=== PATIENT | male | born 1985 | race Caucasian/White ===

== ENCOUNTER 2020-02-02 19:03 | Emergency (ER) | payer BC, SELFPAY ==
[~2020-02-02] VITALS: Ht 180.3 cm; Wt 98.9 kg
[~2020-02-02 19:03] MED LIST: ALEV220C2 PO; HYDR-3715 PO; NAPR-837 PO; VALI5TAB PO
[2020-02-02] MEDS ORDERED: ACET-861 PO (19:08)
[2020-02-02] MEDS ORDERED: KETOROLAC TROMETHAMINE 10 MG TAB PO ONE (20:45)
--- NOTE | 2020-02-02 21:14 | REPVR ---
PROCEDURE INFORMATION: Exam: CT Thoracic Spine Without Contrast Exam date and time: 02/02/2020 8:43 PM Age: 34 years old Clinical indication: Pain in thoracic spine; Additional info: Severe tenderness, down left leg TECHNIQUE: Imaging protocol: Computed tomography images of the thoracic spine without contrast. Radiation optimization: All CT scans at this facility use at least one of these dose optimization techniques: automated exposure control; mA and/or kV adjustment per patient size (includes targeted exams where dose is matched to clinical indication); or iterative reconstruction. COMPARISON: No relevant prior studies available. FINDINGS: Vertebrae: Normal vertebral body alignment. No compression fracture or bone lesions. Discs/Spinal canal/Neural foramina: No spinal stenosis. Mild endplate degenerative changes with small Schmorl's nodes at multiple levels. Soft tissues: Unremarkable. IMPRESSION: No fracture or malalignment. Electronically signed by: Pepe Nguyen On 02/02/2020 21:14:46 PM
--- NOTE | 2020-02-02 21:17 | REPVR ---
PROCEDURE INFORMATION: Exam: CT Lumbar Spine Without Contrast Exam date and time: 02/02/2020 8:43 PM Age: 34 years old Clinical indication: Pain; Sciatica; Left; Additional info: Severe tenderness, down left leg TECHNIQUE: Imaging protocol: Computed tomography images of the lumbar spine without contrast. Radiation optimization: All CT scans at this facility use at least one of these dose optimization techniques: automated exposure control; mA and/or kV adjustment per patient size (includes targeted exams where dose is matched to clinical indication); or iterative reconstruction. COMPARISON: CR Spine. Lumbosacral, complete 06/05/2017 7:05 PM FINDINGS: Vertebrae: Normal vertebral body alignment. Mild endplate degenerative changes with small Schmorl's nodes at multiple levels. No acute fracture or bone lesions Discs/Spinal canal/Neural foramina: Broad-based posterior disc bulge causing spinal stenosis and left greater than right lateral recess stenosis. Bilateral foraminal stenosis at L5-S1. Small posterior disc bulge with mild central stenosis at L4-L5. Soft tissues: Unremarkable. IMPRESSION: 1. Spinal stenosis, bilateral foraminal stenosis, and left greater than right lateral recess stenosis at L5-S1. Consider MRI follow-up. 2. Mild spinal stenosis at L4-L5. 3. No fracture or malalignment. Electronically signed by: Pepe Nguyen On 02/02/2020 21:18:18 PM
[2020-02-02] MEDS ORDERED: PRED20TA PO (21:31)
[2020-02-02 21:32] VITALS: BP 121/94
[2020-02-02] MEDS ORDERED: predniSONE 20 MG TAB PO ONE (21:45)
--- NOTE | 2020-02-04 12:12 | ED PDOC ---
Post-Departure Follow-Up dr gandara faxed formal report of ct ls spine for fu Arjun Peñaloza MD Feb 04, 2020 12:12
== END 2020-02-02 21:44 | disposition home or self-care (01) ==
LOC: M ED 19:03
DX: M51.26 Other intervertebral disc displacement, lumbar region (principal); M48.061 Spinal stenosis, lumbar region without neurogenic claudication; M48.07 Spinal stenosis, lumbosacral region; M51.46 Schmorl's nodes, lumbar region; Z88.2 Allergy status to sulfonamides

== ENCOUNTER → 2020-08-27 | Outpatient (CLI) | payer OTHER ==
[~2020-08-27] MED LIST changes: +ACET-861 PO; +PRED20TA PO
--- NOTE | 2020-08-28 08:53 | REP ---
INDICATION: LOW BACK PAIN. Repeat dictation. Preliminary report is provided at the time of the exam by joaquim PARR. COMPARISON: Comparison CT study of the lumbar spine February 02, 2020. Comparison lumbar spine radiographs June 05, 2017.. TECHNIQUE: Sagittal and axial T1 and T2-weighted scans are acquired in the usual fashion with and without fat saturation. Sequences include spin echo, turbo spin-echo, and STIR imaging sequences. FINDINGS: There is straightening of the normal lumbar lordosis. Lumbar vertebral body heights are preserved. Cortical and medullary bone signal intensity are normal. The tip of the conus medullaris is normal in position and appearance at L1-L2. There are Schmorl's nodes on either side of the L1-2 and L2-3 disc. At L5-S1, there is degenerative disc narrowing and decreased signal intensity. There is a fairly large left posterior focal disc protrusion with thecal sac compression and left S1 nerve root displacement and compression. There is minimal facet hypertrophy. Early posterior spurring is seen and there is 2-3 mm of retrolisthesis at L5-S1. There is no evidence of spondylolysis. No bony neural foraminal narrowing. At L4-5, there is mild diffuse disc bulging. No spinal stenosis or foraminal narrowing is seen. At L3-4, L2-3, and L1-2, no disc protrusion is seen. No spinal stenosis is seen. IMPRESSION: Large left posterior focal disc protrusion L5-S1 with thecal sac compression and S1 root compression and displacement. <Electronically signed by Uday Cuenca > 08/28/20 [id number]
== END ==
LOC: M PLAIMG 15:17
PROVIDERS: ATTEND Physician Assistant
DX: M54.5 Low back pain (principal)

== ENCOUNTER → 2020-11-06 | Outpatient (REF) | payer BC ==
[2020-11-06 21:56] LABS: APPEARANCE, URINE HAZY (CLEAR); BACTERIA, URINE AUTO NEGATIVE (NEGATIVE); BILIRUBIN, URINE AUTO NEGATIVE (NEGATIVE); BLOOD, URINE BLOOD NEGATIVE (NEGATIVE); COLOR, URINE YELLOW (YELLOW); GLUCOSE, URINE (UA) AUTO NEGATIVE (NEGATIVE); KETONE, URINE AUTO NEGATIVE (NEGATIVE); LEUKOCYTE ESTERASE, URINE AUTO NEGATIVE (NEGATIVE); MUCUS, URINE SMALL (NEGATIVE); NITRITE, URINE AUTO NEGATIVE (NEGATIVE); PROTEIN, URINE AUTO 1+ mg/dL (NEGATIVE); RBC, URINE AUTO 1 /HPF (0-3); SQUAMOUS EPITHELIAL CELL UR AU 0 /HPF (0-6); UROBILINOGEN, URINE AUTO 0.2 mg/dL (0.0-2.0); WBC, URINE AUTO 1 /HPF (0-3)
== END ==
LOC: M LAB REF 21:42
PROVIDERS: ATTEND Physician Assistant Medical
DX: R10.9 Unspecified abdominal pain (principal)

== ENCOUNTER → 2020-11-06 | Outpatient (CLI) | payer BC ==
--- NOTE | 2020-11-06 17:52 | REP ---
INDICATION: L FLANK PAIN/ R/O STONE. COMPARISON: 05/02/2010. TECHNIQUE: AP view abdomen and pelvis. FINDINGS: Bowel gas pattern is normal. No dilated small bowel loops are seen. Mild air and fecal material is seen throughout the colon. No abnormal calcifications are seen in the abdomen or pelvis. The visualized osseous structures are unremarkable. IMPRESSION: Negative KUB. <Electronically signed by Aris Johnson > 11/06/20 1961
== END ==
LOC: M RAD 17:23
PROVIDERS: ATTEND Physician Assistant Medical
DX: R10.32 Left lower quadrant pain (principal)

== ENCOUNTER 2020-11-14 12:27 | Emergency (ER) | payer BC ==
[~2020-11-14] VITALS: Ht 182.9 cm; Wt 185.0 kg
[2020-11-14 13:10] LABS: BASO % 0.6 % (0.0-1.0); EOS # 0.4 10^3/uL (0.0-0.5); EOS % 5.1 % (0.0-3.0); HEMATOCRIT 42.8 % (42.0-52.0); HEMOGLOBIN 14.2 g/dl (13.5-17.5); LYMPH # 1.5 10^3/uL (1.5-5.0); LYMPH % 21.2 % (24.0-44.0); MEAN CORPUSCULAR HEMOGLOBIN 29.9 pg (27.0-33.0); MEAN CORPUSCULAR HGB CONC 33.2 g/dl (32.0-36.5); MEAN CORPUSCULAR VOLUME 90.1 fl (80.0-96.0); MONO # 0.4 10^3/uL (0.0-0.8); MONO % 5.2 % (2.0-8.0); NEUTROPHILS # 4.8 10^3/uL (1.5-8.5); NEUTROPHILS % 67.6 % (36.0-66.0); PLATELET COUNT, AUTOMATED 246 10^3/uL (150-450); RED BLOOD COUNT 4.75 10^6/uL (4.30-6.10); WHITE BLOOD COUNT 7.1 10^3/uL (4.0-10.0)
[2020-11-14] MEDS ORDERED: ISOVUE-370 76% 100ML VIAL As Ordered ONE (13:33)
[2020-11-14 14:04] LABS: BILIRUBIN,DIRECT 0.3 MG/DL (0.0-0.2); BILIRUBIN,TOTAL 1.3 MG/DL (0.2-1.0); TOTAL PROTEIN 6.9 GM/DL (6.4-8.2)
[2020-11-14 14:43] VITALS: BP 137/88
[2020-12-08] MEDS ORDERED: TIZA10TA PO (04:36)
[2020-12-08] MEDS ORDERED: PROC10TA5 PO (04:36)
== END 2020-11-14 14:44 | disposition home or self-care (01) ==
LOC: M ED 12:27
DX: K86.9 Disease of pancreas, unspecified (principal); K80.20 Calculus of gallbladder without cholecystitis without obstruction; F41.9 Anxiety disorder, unspecified; Z88.2 Allergy status to sulfonamides
CPT/HCPCS: 36415; 74177; 80047; 80076; 83690; 85025; 99284; Q9967

== ENCOUNTER 2020-12-07 20:59 | Inpatient (IN) | payer BC, MEDICAID ==
[~2020-12-07] VITALS: Ht 180.3 cm; Wt 79.2 kg
[2020-12-07 23:24] LABS: BASO % 0.3 % (0.0-1.0); HEMATOCRIT 51.8 % (42.0-52.0); HEMOGLOBIN 17.4 g/dl (13.5-17.5); LYMPH # 0.6 10^3/uL (1.5-5.0); MEAN CORPUSCULAR HEMOGLOBIN 29.2 pg (27.0-33.0); MEAN CORPUSCULAR HGB CONC 33.6 g/dl (32.0-36.5); MEAN CORPUSCULAR VOLUME 87.1 fl (80.0-96.0); MONO # 0.1 10^3/uL (0.0-0.8); MONO % 3.8 % (2.0-8.0); NEUTROPHILS # 2.4 10^3/uL (1.5-8.5); NEUTROPHILS % 75.3 % (36.0-66.0); PLATELET COUNT, AUTOMATED 308 10^3/uL (150-450); RED BLOOD COUNT 5.95 10^6/uL (4.30-6.10); WHITE BLOOD COUNT 3.2 10^3/uL (4.0-10.0)
[2020-12-07 23:36] LABS: ALBUMIN 3.9 GM/DL (3.2-5.2); ALT/SGPT 120 U/L (12-78); BILIRUBIN,DIRECT 0.4 MG/DL (0.0-0.2); BILIRUBIN,TOTAL 2.8 MG/DL (0.2-1.0); BLOOD UREA NITROGEN 18 MG/DL (7-18); CALCIUM LEVEL 9.2 MG/DL (8.5-10.1); CARBON DIOXIDE LEVEL 24 MEQ/L (21-32); CHLORIDE LEVEL 102 MEQ/L (98-107); CREATININE FOR GFR 0.84 MG/DL (0.70-1.30); GLOMERULAR FILTRATION RATE > 60.0 (>60); GLUCOSE, FASTING 118 MG/DL (70-100); LIPASE 231 U/L (73-393); POTASSIUM SERUM 5.3 MEQ/L (3.5-5.1); SODIUM LEVEL 134 MEQ/L (136-145); TOTAL PROTEIN 7.5 GM/DL (6.4-8.2)
[2020-12-07] MEDS ORDERED: NS 1,000 ML IV ONE ×2 (23:40)
[2020-12-07] MEDS ORDERED: MORPHINE 4 MG/ML 1ML VIAL/SYRINGE (J2270) IV ONE (23:40)
[2020-12-07] MEDS ORDERED: ONDANSETRON 4MG/2ML VIAL IV ONE (23:40)
[2020-12-07] MEDS ORDERED: ISOVUE-370 76% 100ML VIAL As Ordered ONE (23:48)
--- NOTE | 2020-12-08 01:09 | REPVR ---
PROCEDURE INFORMATION: Exam: CT Abdomen And Pelvis With Contrast Exam date and time: 12/07/2020 11:40 PM Age: 35 years old Clinical indication: Abdominal pain; Generalized; Patient HX: Stage iv pancreatic CA; Additional info: Stage iv pancreatic cancer with ? biliary obstruction, sbo TECHNIQUE: Imaging protocol: Computed tomography of the abdomen and pelvis with contrast. Radiation optimization: All CT scans at this facility use at least one of these dose optimization techniques: automated exposure control; mA and/or kV adjustment per patient size (includes targeted exams where dose is matched to clinical indication); or iterative reconstruction. Contrast material: ISO; Contrast volume: 100 ml; Contrast route: INTRAVENOUS (IV); COMPARISON: CT ABD/PEL W/IV CONTRAST ONLY 11/14/2020 1:30 PM FINDINGS: Lungs: No suspicious mass or airspace process in the visualized lung bases. Liver: Liver appears normal with no focal abnormality. Gallbladder and bile ducts: Gallbladder is distended and contains intraluminal calculi. No bile duct dilatation or obvious wall thickening within the limitations of CT. Pancreas: Pancreas demonstrates an infiltrative appearing low-density pancreatic tail mass measuring 4.7 x 3.6 cm, similar to the prior recent CT. No bile duct dilatation or fluid collection. Spleen: Spleen appears homogeneous without focal mass. Adrenal glands: Adrenal glands are normal in appearance. Kidneys and ureters: Kidneys appear normal, with no stone, solid mass or hydronephrosis. Stomach and bowel: Tethering of bowel loops in the right lower quadrant, with probable mesenteric infiltration. There is probably at least partial obstruction of the small bowel loops which are dilated up to 4cm in the right lower quadrant. No evidence of acute diverticulitis. Appendix: Appendix is not seen. No RLQ inflammation to suggest appendicitis. Vasculature: No abdominal aortic aneurysm. Lymph nodes: Peripancreatic lymphadenopathy and left upper quadrant mesenteric implants are present and may be progressive over the short interim. Multiple omental soft tissue masses are present measuring up to 3.7 x 1.9 cm, similar to the recent prior CT. Probable malignant ascites. Urinary bladder: Urinary bladder appears normal. Reproductive: No overt enlargement of the prostate gland. Bones/joints: Bony structures show no acute fracture or destructive process. Soft tissues: Unremarkable. IMPRESSION: 1. Least partial small bowel obstruction in the right lower quadrant with bowel measuring up to 4 cm, apparently with tethering of bowel loops secondary to metastatic mesenteric or omental masses. 2. 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 3. Gallbladder distension and intraluminal gallstones without biliary obstruction Electronically signed by: Nima Galdamez On 12/08/2020 01:08:24 AM
[2020-12-08] MEDS ORDERED: MORPHINE 2 MG/ML 1ML VIAL (J2270) IV PRN ×2 (02:20→06:45)
[2020-12-08 02:26] LABS: BASO % 0.6 % (0.0-1.0); EOS % 1.2 % (0.0-3.0); HEMATOCRIT 43.9 % (42.0-52.0); LYMPH # 0.4 10^3/uL (1.5-5.0); LYMPH % 23.1 % (24.0-44.0); MEAN CORPUSCULAR HEMOGLOBIN 29.3 pg (27.0-33.0); MEAN CORPUSCULAR HGB CONC 32.8 g/dl (32.0-36.5); MEAN CORPUSCULAR VOLUME 89.4 fl (80.0-96.0); MONO # 0.1 10^3/uL (0.0-0.8); MONO % 5.3 % (2.0-8.0); NEUTROPHILS # 1.2 10^3/uL (1.5-8.5); NEUTROPHILS % 69.2 % (36.0-66.0); PLATELET COUNT, AUTOMATED 228 10^3/uL (150-450); RED BLOOD COUNT 4.91 10^6/uL (4.30-6.10); WHITE BLOOD COUNT 1.7 10^3/uL (4.0-10.0)
[2020-12-08 02:27] LABS: HEMOGLOBIN 14.4 g/dl (13.5-17.5)
--- NOTE | 2020-12-08 02:34 | HPEPDOC ---
[facility] Medical History & Physical Date of Admission Dec 08, 2020 Date of Service: Dec 08, 2020 Other Provider Ailyn Hodge [facility] Attending Physician: CARLYLE GREENE MD History and Physical TIME OF SERVICE: 344AM CHIEF COMPLAINT: abdominal pain HISTORY OF PRESENT ILLNESS: , a 35 yr old M, was diagnosed with stage 4 pancreatic cancer about 2 weeks ago. He was recently admitted at [facility] where he was told that he is not a candidate for surgery but he received chemo. He was discharged home on Monday and in the interim developed 10/10 in severity abdominal pain that didnt improve w his home dose of morphine. He also had bilious vomiting & burning with urination. He had a small BM yesterday. After receiving IV morphine in the ER his pain improved to 5/10 in severity. REVIEW OF SYSTEMS: 10-point review of systems negative except as listed in HPI PAST MEDICAL/ SURGICAL HISTORY: recently diagnosed stage 4 pancreatic cancer, appendectomy to manage ruptured appendix FAMILY HISTORY: n/a SOCIAL HISTORY: he doesnt smoke ALLERGIES: Please see below. HOME MEDICATIONS: Please see below. PHYSICAL EXAMINATION: Vital Signs Date Time Temp Pulse Resp B/P (MAP) Pulse Ox O2 Delivery O2 Flow Rate FiO2 12/07/20 21:13 97.3 103 20 137/97 (110) 97 Room Air GENERAL APPEARANCE: well-nourished and developed/ NAD HEENT: EOMI / MMM&P CARDIOVASCULAR: RRR/NMRG LUNGS: CTAB on RA ABDOMEN: contour flat/ no vail sign or [place] sign / he is guarding when I approach his abdomen MUSCULOSKELETAL: NCAT / LUCIANO x 4 extremities INTEGUMENT: he is not flushed diaphoretic or jaundice NEUROLOGICAL: CN 2-12 grossly intact / speech not dysarthric PSYCHIATRIC: A&O x 3 / able to understand and follow all commands LABORATORY DATA: IMAGING: CT abd/pelvis IMPRESSION: 1. Least partial small bowel obstruction in the right lower quadrant with bowel measuring up to 4 cm, apparently with tethering of bowel loops secondary to metastatic mesenteric or omental masses. 2. 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 3. Gallbladder distension and intraluminal gallstones without biliary obstruction. MICROBIOLOGY: Respiratory panel negative ASSESSMENT: is a 35 yr old who was recently diagnosed w stage 4 pancreatic cancer; he presented w abdominal pain and will be admitted for management of partial SBO and SIRS vs Sepsis cause TBD. PLAN: 1 Partial SBO 2/2 omental masses He declined NG tube placement Plan: admit to medical floor / NPO w IVF / Zofran for n/v / morphine PROCEDURES NURSE / will ask the day time team to consider consult Gen Surg to see of the patient is a candidate for a palliative enteral stent 2 Stage 4 pancreatic cancer with omental masses, and malignant ascites He reported having difficulties tolerating chemo Plan: will ask the day time team to consult Hem/Onc / request records from [facility] 3 SIRS vs Sepsis Possibly reactive due to malignancy but since he recently received chemo and c/o dysuria we will need to r/o infection Plan: pending UA, blood cx, MRSA and lactic acid we will start empiric Zosyn / IVF 4 Neutropenia ANC is 2400 Plan: continue to monitor ANC 5 Counseling and discussion regarding end of life care planning and decisions We spent about 10 min discussing the option to transition to [employer] along with benefits and risks. I also offered him the option of talking with our local [facility] tomorrow. Plan: he will take some time to think about how he would like to proceed DVT px w Heparin drip Disposition: home after more than 2 midnights stay Home Medications Scheduled PRN Gabapentin (Neurontin) 100 Mg Capsule, 100 MG PO TID PRN for NEUROPATHIC PAIN Morphine Sulfate (Morphine Sulfate) 15 Mg Tablet, 15 MG PO Q6H PRN for SEVERE PAIN (PS 8-10) Ondansetron HCl (Ondansetron HCl) 8 Mg Tablet, 8 MG PO Q8H PRN for NAUSEA OR VOMITING Polyethylene Glycol 3350 (Miralax) 17 Gm Powd.pack, 17 GM PO DAILY PRN for CONSTIPATION Prochlorperazine Maleate (Prochlorperazine Maleate) 10 Mg Tablet, 10 MG PO Q6H PRN for NAUSEA OR VOMITING Sennosides (Senna) 8.6 Mg Tablet, 2 TAB PO DAILY PRN for CONSTIPATION Tizanidine HCl (Tizanidine HCl) 4 Mg Tablet, 4 MG PO Q6H PRN for MUSCLE SPASMS Allergies Coded Allergies: Sulfa (Sulfonamide Antibiotics) (Verified Allergy, Unknown, unknown, 02/02/20) A-FIB/CHADSVASC A-FIB History Current/History of A-Fib/PAF?: No Current PO Anticoag Therapy: No CARLYLE GREENE MD Dec 08, 2020 02:34
[2020-12-08 02:54] LABS: ALT/SGPT 75 U/L (12-78); BILIRUBIN,TOTAL 1.7 MG/DL (0.2-1.0); BLOOD UREA NITROGEN 15 MG/DL (7-18); CALCIUM LEVEL 6.6 MG/DL (8.5-10.1); CARBON DIOXIDE LEVEL 23 MEQ/L (21-32); CHLORIDE LEVEL 114 MEQ/L (98-107); GLOMERULAR FILTRATION RATE > 60.0 (>60); GLUCOSE, FASTING 102 MG/DL (70-100); POTASSIUM SERUM 3.9 MEQ/L (3.5-5.1); SODIUM LEVEL 143 MEQ/L (136-145); TOTAL PROTEIN 4.8 GM/DL (6.4-8.2)
[2020-12-08 02:55] LABS: ALBUMIN 2.4 GM/DL (3.2-5.2)
[2020-12-08 03:21] LABS: RSV AMPLIFICATION NEGATIVE (NEGATIVE)
[2020-12-08] MEDS: NS 1,000 ML IV SCH ×3 (03:38→19:04)
[2020-12-08] MEDS ORDERED: MORP15TA2 PO (04:36)
[2020-12-08] MEDS ORDERED: ONDA-196 PO (04:36)
[2020-12-08] MEDS ORDERED: NEUR100C PO (04:36)
[2020-12-08] MEDS ORDERED: MIRA1POW3 PO (04:36)
[2020-12-08] MEDS ORDERED: TIZA4TAB4 PO (04:36)
[2020-12-08] MEDS ORDERED: SENN8.6T28 PO (04:36)
[2020-12-08] MEDS ORDERED: PROC10TA4 PO (04:36)
[2020-12-08] MEDS ORDERED: MIRALAX *UNIT DOSE* 17GM PACKET PO PRN (04:40)
[2020-12-08] MEDS ORDERED: tiZANidine 4 MG TAB PO PRN (04:40)
[2020-12-08] MEDS ORDERED: NALOXONE INJ 0.4MG/1ML VIAL (J2310 PER 1MG) IV PRN (04:40)
[2020-12-08] MEDS ORDERED: MORPHINE 1MG/ML IN 0.9% NACL 100ML IV BAG IV PRN (04:40)
[2020-12-08] MEDS ORDERED: SENNA 8.6 MG TAB (SENOKOT) PO PRN (04:40)
[2020-12-08] MEDS ORDERED: ONDANSETRON 4MG/2ML VIAL IV PRN ×2 (04:40)
[2020-12-08] MEDS ORDERED: HOME MED LIST COMPLETE! XX SCH (04:40)
[2020-12-08] MEDS ORDERED: EPIDURAL/PCA KEYS XX PRN (04:40)
[2020-12-08] MEDS ORDERED: diphenhydrAMINE 50MG/ML VIAL (J1200) IV PRN (04:40)
[2020-12-08] MEDS ORDERED: NS 1,000 ML IV SCH (04:40)
[2020-12-08 05:59] VITALS: BP 126/85
[2020-12-08] MEDS: HEPARIN SOD (PORCINE) 5000UNITS/ML 1ML VIAL/SYRINGE SC SCH ×3 (06:00→22:00)
[2020-12-08] MEDS: PIPERACILLIN/TAZOBACTAM SOD 3.375 GM in D5W MINI-BAG PLUS 50 ML IV SCH ×3 (08:16→20:46)
[2020-12-08] MEDS ORDERED: GLUCOSE 4GM CHEW TABLET PO PRN (10:10)
[2020-12-08] MEDS ORDERED: DEXTROSE 50% 50 ML SYRINGE IV PRN (10:10)
[2020-12-08] MEDS ORDERED: GLUCAGON INJ 1MG VIAL SC PRN (10:10)
--- NOTE | 2020-12-08 12:48 | REP ---
INDICATION: abd pain pancreatic ca. COMPARISON: CT 12/07/2020. TECHNIQUE: Multiple heavily T2 weighted sequences are obtained in the axial and coronal planes. 3D MIP reconstruction images are performed. FINDINGS: There is no intrahepatic or extrahepatic biliary dilatation. There is no gross biliary stricture and no focal dilatation. Common bile duct has a maximum diameter of approximately 3 mm. Pancreatic duct is normal in caliber. Gallbladder is moderately distended with no wall thickening or edema. Multiple subcentimeter gallstones are seen in the dependent portion of the gallbladder. There is no evidence of choledocholithiasis. The liver, spleen, adrenals, and kidneys are grossly unremarkable. Pancreatic tail mass is again noted. Omental and mesenteric disease is better appreciated on the CT scan. There is trace free fluid in subhepatic and perisplenic regions of the abdomen. IMPRESSION: Multiple subcentimeter gallstones in the moderately distended gallbladder without gallbladder wall thickening or edema. Trace free fluid is seen in the subhepatic region. There is no intrahepatic or extrahepatic biliary dilatation.Pancreatic tail mass noted with no pancreatic duct dilatation. <Electronically signed by Aris Johnson > 12/08/20 [id number]
[2020-12-08 14:00] VITALS: BP 118/81
--- NOTE | 2020-12-08 17:22 | CR.PDOC ---
General Date of Consultation: Dec 08, 2020 Consultation REASON FOR CONSULTATION/CHIEF COMPLAINT: Pancreatic cancer/ leukopenia HISTORY OF PRESENT ILLNESS: , a 35 yr old M, was diagnosed with stage 4 pancreatic cancer with omental masses, and malignant ascites about 2 weeks ago. He was recently admitted at [facility] where he was told that he is not a candidate for surgery but he received chemo. He was discharged home on Monday and in the interim developed 10/10 in severity abdominal pain that didnt improve w his home dose of morphine. He also had bilious vomiting & burning with urination. He had a small BM yesterday. After receiving IV morphine in the ER his pain improved to 5/10 in severity. IMAGING: CT abd/pelvis IMPRESSION: 1. Least partial small bowel obstruction in the right lower quadrant with bowel measuring up to 4 cm, apparently with tethering of bowel loops secondary to metastatic mesenteric or omental masses. 2. 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 3. Gallbladder distension and intraluminal gallstones without biliary obstruction. Oh was diagnosed 2 weeks ago. Symptoms were extreme abdominal pain, bowel troubles, nausea and vomiting. He began to vomit during our visit today. His abdomen is tender to the touch. He has only been given nausea medication as needed. His reports show there is a bowel obstruction, he has not had surgical intervention for this. The mass is on tail of pancreas. Intraperitoneal metastases. Metastatic to liver. I spoke to NIESHA Mccauley she informed me he has been refusing any blood draws for fear of needles. Refusing pain medication and heparin. He has been stating he wants a clear head. He was given first treatment of FOLFOXFIRI 1 week ago, they were planning on every 2 weeks for treatment. He could not tolerate this treatment. I advised him not to give up. There are other treatment options that can be tolerated much better. I I explained to him that FOLFOXIRI gives better results other difficult to tolerate. His next cycle will be due in about a week but he is neutropenic and is getting Neupogen 480 mcg subcu daily. His next cycle needs to modified so that he does not become mildly stressed or may add Neulasta support to keep white blood cell count up.. . I discussed Gemzar and Abraxane combination is an alternate choice although he should try his best to continue with FOLFOXIRI if he wants better result other difficult communication to tolerate He has not had an appetite for over a week. ALLERGIES: Please see below. HOME MEDICATIONS: Please see below. PAST SURGICAL HISTORY: recently diagnosed stage 4 pancreatic cancer, appendectomy to manage ruptured appendix FAMILY HISTORY:Grandmother with breast and cervical cancer, stomach cancer unknown who, grandfather with leukemia LABORATORY DATA: Please see below. ASSESSMENT/PLAN: Patient has metastatic pancreatic cancer spread with omental and peritoneal spread s/p 1 cycle FOLFOXIRI. Following is suggested 1. Neupogen 480 mcg subc daily with daily CBC. CA 199 should be drawn. 2. Ondansetron for nausea 4-8mg IV every 8 hours around the clock 3. He should continue with his follow up at [facility] and discuss what we discussed 4. Pain management consultation, [employer] pump for pain management if patient is agreeable. Vital Signs/I&O Vital Signs Date Time Temp Pulse Resp B/P (MAP) Pulse Ox O2 Delivery O2 Flow Rate FiO2 12/08/20 14:10 100.6 12/08/20 14:00 132 18 118/81 (93) 97 Room Air I&O- Last 24 Hours up to 6 AM 12/08/20 06:00 Intake Total 0 ml Output Total 0 ml Balance 0 ml Laboratory Data Labs 24H Laboratory Tests 2 12/07/20 23:00: Immature Granulocyte % (Auto) 0.6, Neutrophils (%) (Auto) 75.3H, Lymphocytes (%) (Auto) 19.0L, Monocytes (%) (Auto) 3.8, Eosinophils (%) (Auto) 1.0, Basophils (%) (Auto) 0.3, Neutrophils # (Auto) 2.4, Lymphocytes # (Auto) 0.6L, Monocytes # (Auto) 0.1, Eosinophils # (Auto) 0.0, Basophils # (Auto) 0.0, Nucleated Red Blood Cells % (auto) 0.0, Anion Gap 8, Glomerular Filtration Rate > 60.0, Calcium Level 9.2, Total Bilirubin 2.8H, Direct Bilirubin 0.4H, Aspartate Amino Transf (AST/SGOT) 45H, Alanine Aminotransferase (ALT/SGPT) 120H, Alkaline Phosp hatase 84, Total Protein 7.5, Albumin 3.9, Albumin/Globulin Ratio 1.1, Lipase 231 12/08/20 02:00: Immature Granulocyte % (Auto) 0.6, Neutrophils (%) (Auto) 69.2H, Lymphocytes (%) (Auto) 23.1L, Monocytes (%) (Auto) 5.3, Eosinophils (%) (Auto) 1.2, Basophils (%) (Auto) 0.6, Neutrophils # (Auto) 1.2L, Lymphocytes # (Auto) 0.4L, Monocytes # (Auto) 0.1, Eosinophils # (Auto) 0.0, Basophils # (Auto) 0.0, Nucleated Red Blood Cells % (auto) 0.0, Anion Gap 6L, Glomerular Filtration Rate > 60.0, Calcium Level 6.6#L, Total Bilirubin 1.7H, Aspartate Amino Transf (AST/SGOT) 15, Alanine Aminotransferase (ALT/SGPT) 75, Alkaline Phosphatase 57, Total Protein 4.8#L, Albumin 2.4#L, Albumin/Globulin Ratio 1.0, Lactic Acid Level 1.3, Coronavirus (COVID-19)(PCR) NEGATIVE, Influenza Type A (RT-PCR) NEGATIVE, Influenza Type B (RT-PCR) NEGATIVE, Respiratory Syncytial Virus (PCR) NEGATIVE 12/08/20 06:21: Bedside Glucose (Misc Panel) 105 12/08/20 11:45: Bedside Glucose (Misc Panel) 117H 12/08/20 14:46: Urine Color NILESH, Urine Appearance CLEAR, Urine pH 6.0, Urine Specific [place] 1.035, Urine Protein 1+H, Urine Glucose (UA) NEGATIVE, Urine Ketones NEGATIVE, Urine Blood NEGATIVE, Urine Nitrite NEGATIVE, Urine Bilirubin NEGATIVE, Urine Urobilinogen 4.0H, Urine Leukocyte Esterase NEGATIVE, Urine WBC (Auto) 1, Urine RBC (Auto) 1, Urine Hyaline Casts (Auto) 0, Urine Bacteria (Auto) NEGATIVE, Urine Squamous Epithelial Cells 0, Urine Mucus (Auto) SMALL, Urine Sperm (Auto) CBC/BMP Laboratory Tests 12/07/20 23:00 12/08/20 02:00 Allergies Coded Allergies: Sulfa (Sulfonamide Antibiotics) (Verified Allergy, Unknown, unknown, 02/02/20) Home Medications Scheduled PRN Gabapentin (Neurontin) 100 Mg Capsule, 100 MG PO TID PRN for NEUROPATHIC PAIN, (Reported) Morphine Sulfate (Morphine Sulfate) 15 Mg Tablet, 15 MG PO Q6H PRN for SEVERE PAIN (PS 8-10), (Reported) Ondansetron HCl (Ondansetron HCl) 8 Mg Tablet, 8 MG PO Q8H PRN for NAUSEA OR VOMITING, (Reported) Polyethylene Glycol 3350 (Miralax) 17 Gm Powd.pack, 17 GM PO DAILY PRN for CONSTIPATION, (Reported) Prochlorperazine Maleate (Prochlorperazine Maleate) 10 Mg Tablet, 10 MG PO Q6H PRN for NAUSEA OR VOMITING, (Reported) Sennosides (Senna) 8.6 Mg Tablet, 2 TAB PO DAILY PRN for CONSTIPATION, (Repor abby) Tizanidine HCl (Tizanidine HCl) 4 Mg Tablet, 4 MG PO Q6H PRN for MUSCLE SPASMS, (Reported) Sanjay Garcia Dec 08, 2020 17:22 DEREK VEGA MD Dec 08, 2020 17:52
[2020-12-08] MEDS: PANTOPRAZOLE 40MG VIAL (C9113 PER 1) IV SCH (17:52)
[2020-12-08] MEDS: ONDANSETRON 4MG/2ML VIAL IV SCH (17:52)
--- NOTE | 2020-12-08 21:39 | ECGEPIP ---
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
[2020-12-08 22:00] VITALS: BP 119/75
[2020-12-09] MEDS: ONDANSETRON 4MG/2ML VIAL IV SCH ×3 (01:08→17:00)
[2020-12-09] MEDS: PIPERACILLIN/TAZOBACTAM SOD 3.375 GM in D5W MINI-BAG PLUS 50 ML IV SCH ×4 (01:08→20:25)
[2020-12-09] MEDS: NS 1,000 ML IV SCH ×2 (01:09→10:58)
[2020-12-09] MEDS: HEPARIN SOD (PORCINE) 5000UNITS/ML 1ML VIAL/SYRINGE SC SCH ×3 (05:35→20:24)
[2020-12-09 06:00] VITALS: BP 115/77
[2020-12-09] MEDS: PANTOPRAZOLE 40MG VIAL (C9113 PER 1) IV SCH (08:57)
--- NOTE | 2020-12-09 12:12 | IPN ---
PROGRESS NOTE DATE: 12/09/2020 SUBJECTIVE: Patient denies nausea, vomiting, abdominal pain, diarrhea. Patient said he feels quite comfortable this morning, had not taken much morphine yesterday. He is tolerating his liquid diet. Patient has been refusing phlebotomy due to fear of needles. OBJECTIVE: Vital signs: T-max 100.6, pulse 65 sinus, respiratory rate 19, blood pressure 115/77, 98% on room air. General: Awake, alert, oriented to person, place and time, answering questions appropriately. HEENT: Poor dentition, missing teeth, cavities. Dry mucous membranes with chapped lips. Cachetic appearing, bi-temporal wasting. Lungs: Clear to auscultation, no wheezes, rhonchi or rales. Heart: S1 and S2 sinus rhythm. Abdomen: Soft, slightly tender epigastric, right upper quadrant, no guarding or rebound, positive bowel sounds, nondistended. Extremities: No cyanosis, clubbing or pitting edema. LABORATORY DATA: Patient refused blood work today. From 12/08/2020: CBC, CMP noted yesterday with decreasing bilirubin to 1.7. Microbiology reviewed. IMAGING STUDIES: MRCP: No ductal dilatation, multiple subcentimeter gallstones and a moderately distended gallbladder without wall thickening or edema. ASSESSMENT: This is a 35-year-old with metastatic stage 4 pancreatic cancer status post chemotherapy and follows at [facility] in [place] presents with intractable abdominal pain on Monday, improved with I.V. morphine. Patient had no ductal dilatation on CT and MRCP. He does have cholelithiasis. IMPRESSIONS/PLAN: 1. Stage 4 pancreatic cancer with omental metastasis and malignant ascites: Undergoing chemotherapy. 2. Partial small bowel obstruction secondary to omental masses: He is currently passing gas, decline nasogastric tube placement. He is on I.V. fluids and tolerating his liquid diet. 3. Cholelithiasis with biliary colic: No gallbladder wall thickening or edema noted on MRCP. Patient is currently on I.V. antibiotics for acute cholecystitis, but tolerating his diet. General surgery has been consulted to assist in management. Possible laparoscopic cholecystectomy or continue antibiotics with conservative management. [facility]
[2020-12-09 14:00] VITALS: BP 123/88
[2020-12-09] MEDS ORDERED: ONDANSETRON 4MG/2ML VIAL IV ONE (20:30)
[2020-12-09 22:00] VITALS: BP 127/89
[2020-12-10] MEDS: PIPERACILLIN/TAZOBACTAM SOD 3.375 GM in D5W MINI-BAG PLUS 50 ML IV SCH ×4 (02:23→20:39)
[2020-12-10] MEDS: ONDANSETRON 4MG/2ML VIAL IV SCH ×3 (02:23→17:00)
[2020-12-10] MEDS: HEPARIN SOD (PORCINE) 5000UNITS/ML 1ML VIAL/SYRINGE SC SCH ×3 (05:04→21:36)
[2020-12-10 06:00] VITALS: BP 123/85
[2020-12-10 07:42] LABS: ALBUMIN 2.6 GM/DL (3.2-5.2); ALT/SGPT 43 U/L (12-78); BILIRUBIN,TOTAL 0.7 MG/DL (0.2-1.0); BLOOD UREA NITROGEN 7 MG/DL (7-18); CALCIUM LEVEL 8.1 MG/DL (8.5-10.1); CARBON DIOXIDE LEVEL 26 MEQ/L (21-32); CHLORIDE LEVEL 106 MEQ/L (98-107); CREATININE FOR GFR 0.65 MG/DL (0.70-1.30); GLOMERULAR FILTRATION RATE > 60.0 (>60); GLUCOSE, FASTING 82 MG/DL (70-100); POTASSIUM SERUM 3.6 MEQ/L (3.5-5.1); SODIUM LEVEL 136 MEQ/L (136-145); TOTAL PROTEIN 5.8 GM/DL (6.4-8.2)
--- NOTE | 2020-12-10 07:52 | CR.PDOC ---
General Date of Consultation: Dec 10, 2020 Attending Physician: AUGUSTINE DUGAN MD Consultation REASON FOR CONSULTATION/CHIEF COMPLAINT: Mr. Byrne is a 35 year old referred to palliative care for New dx of stage IV pancreatic cancer for support and pain and symptom management from Dr. Dugan. HISTORY OF PRESENT ILLNESS: Benign past medical history. Develped weight loss and abdominal pain, dx 2 weeks ago at [facility]. He received one dose of FOLFOXIRI. Apparendtly did not tolerate this well. He has had medical oncology consult from Dr. Martinez here during this stay. He recommends continuing current chemo and f/u at [facility]. Admitted here one day after discharge from [facility] with severe abdominal pain and intractible N/V. Mood is sad with news of dx but he is accepting of it. Otherwise 10 point ROS was negative. PAST MEDICAL HISTORY: No current problems PAST SURGICAL HISTORY: 1. Appendectomy age 10, s/p rupture FAMILY HISTORY: Grandmother with breast and cervical cancer, stomach cancer unknow whom, grandfather with leukemia SOCIAL HISTORY: Marital status and/or living arrangements: Lives alone. Plans to move to [place], will live in best friend's grandmother's home. Has family and friend support in [place] area. Wishes to transfer cancer care to Dr Martinez [facility]. 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 He states his family is fully informed about his diagnosis. SPIRITUALITY: Nonreligious, believes in [place] ASSESSMENT/PLAN: Advanced Care Planning: currently full code. not discussed today. Has good family support. Plan to complete Health care surrogate and living will in near future. He will f/u with us at [facility]. Symptom Management: Nausea: continue ondansetron scheduled. Rotate to oral when can tolerate. Consider adding prochlorperazine 10 mg PO/NE q 6 hr prn. Has had some breakthrough nausea with zofran only. Recommend trial of Lortab 10/325 for d/c pain mdication, after trial in hospital. Was taking morphine immediate release 30 mg, but had intractible N/V so he is not sure this was working. Goals of Care: Aggressively treat Cancer. He is aware of poor prognosis. Move to [place] to be near friends and family for support. Transfer cancer care to [place]. Establish at [facility] for support and ongoing symptom management. 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 Vital Signs/I&O Vital Signs Date Time Temp Pulse Resp B/P (MAP) Pulse Ox O2 Delivery O2 Flow Rate FiO2 12/10/20 06:53 18 12/10/20 06:00 98.4 75 123/85 (98) 100 Room Air I&O- Last 24 Hours up to 6 AM 12/10/20 06:00 Intake Total 1060 ml Balance 1060 ml Laboratory Data Labs 24H Laboratory Tests 2 12/10/20 06:54: Home Medications Scheduled PRN Gabapentin (Neurontin), 100 MG PO TID PRN for NEUROPATHIC PAIN, (Reported) Morphine Sulfate (Morphine Sulfate), 15 MG PO Q6H PRN for SEVERE PAIN (PS 8-10), (Reported) Ondansetron HCl (Ondansetron HCl), 8 MG PO Q8H PRN for NAUSEA OR VOMITING, (Reported) Polyethylene Glycol 3350 (Miralax), 17 GM PO DAILY PRN for CONSTIPATION, (Reported) Prochlorperazine Maleate (Prochlorperazine Maleate), 10 MG PO Q6H PRN for NAUSEA OR VOMITING, (Reported) Sennosides (Senna), 2 TAB PO DAILY PRN for CONSTIPATION, (Reported) Tizanidine HCl (Tizanidine HCl), 4 MG PO Q6H PRN for MUSCLE SPASMS, (Reported) Allergies Coded Allergies: Sulfa (Sulfonamide Antibiotics) (Verified Allergy, Unknown, unknown, 02/02/20) DREA BERRIOS Dec 10, 2020 07:52
[2020-12-10] MEDS: MORPHINE 30 MG TAB **MSIR PO SCH ×3 (09:42→20:41)
[2020-12-10] MEDS: METOCLOPRAMIDE 10 MG TAB PO SCH ×3 (13:15→20:40)
[2020-12-10 14:00] VITALS: BP 122/85
--- NOTE | 2020-12-10 14:30 | IPN ---
PROGRESS NOTE DATE: 12/10/2020 SUBJECTIVE: Patient said that he is tolerating liquids, but when he tried to have a solid diet yesterday, patient complained of one episode of vomiting. He was afebrile. No chills. Chronic abdominal discomfort rated at 5/10, but better on morphine. Patient had refused blood work previously. Unable to assess patient for neutropenia. OBJECTIVE: VITAL SIGNS: Temperature 98.4, pulse 75, respiratory rate 20, blood pressure 123/85, 100% on room air. GENERAL: Patient is awake, alert, oriented to person, place and time, answering questions appropriately. He appears disheveled. HEENT: Poor dentition, missing teeth, dental caries. Dry mucous membranes. No jugular venous distention (JVD), thyromegaly or cervical lymphadenopathy. LUNGS: Clear to auscultation. No wheezing, rales or rhonchi. Air entry is equal bilaterally. HEART: S1, S2. Sinus rhythm. No murmurs, rubs or gallops. No carotid bruit. ABDOMEN: Soft. Tender in the epigastric, left upper quadrant without rebound or guarding. Slightly distended and tympanitic. EXTREMITIES: No cyanosis, clubbing or pitting edema. LABORATORY DATA/MICROBIOLOGY/IMAGING STUDIES: Have been reviewed. ASSESSMENT: A 35-year-old male with history of stage IV pancreatic cancer, nonsurgical, undergoing chemotherapy and follows at [facility], status post chemotherapy and discharged home last Monday, presented to the emergency room with worsening abdominal pain, found to have partial small bowel obstruction, cholelithiasis, biliary cholic, with increased omental metastatic lesions on CT abdomen and pelvis. Despite elevated bilirubin, patient had no ductal dilatation or obstruction on magnetic resonance cholangiopancreatography (MRCP). Patient had febrile neutropenia and was started on intravenous Zosyn. Absolute neutrophil count (ANC) at that time was 76 and did not require any Neupogen. Patient had diffuse blood work, unable to assess for need for Neupogen. He had episodes of vomiting, but no signs of dehydration and completed intravenous (IV) fluids. ACTIVE ISSUES ARE FOLLOWS: 1. Partial small bowel obstruction secondary to metastatic pancreatic cancer to the omentum. 2. Stage IV metastatic pancreatic cancer with malignant ascites and omental masses. 3. Biliary cholic with cholelithiasis. 4. Febrile neutropenia with sepsis with ANC of 2400 on admission and 1176 o 12/07/2020. Patient refused further blood work. 5. Cancer cachexia. PLAN: General surgery was consulted and recommended supplemental nutrition with Ensure due to rule out possible chronic partial small bowel instruction with increased risk of complete obstruction in the future. Continue with antibiotics for now. Afebrile. No neutropenia. Pain medications with morphine sulfate-immediate release (MS-IR) three times a day. Reglan as an antiemetic. Discharge home in the morning with outpatient followup with his medical oncologist and primary care physician within a week of discharge.
[2020-12-10] MEDS ORDERED: METO10TA2 PO (15:52)
[2020-12-10] MEDS ORDERED: MSIR30TA PO (15:52)
[2020-12-10 20:04] VITALS: BP 132/78
[2020-12-11] MEDS: ONDANSETRON 4MG/2ML VIAL IV SCH ×3 (01:41→17:00)
[2020-12-11] MEDS: PIPERACILLIN/TAZOBACTAM SOD 3.375 GM in D5W MINI-BAG PLUS 50 ML IV SCH ×3 (01:41→14:00)
[2020-12-11 06:00] VITALS: BP 115/77
[2020-12-11] MEDS: HEPARIN SOD (PORCINE) 5000UNITS/ML 1ML VIAL/SYRINGE SC SCH ×2 (06:00→14:00)
[2020-12-11] MEDS: METOCLOPRAMIDE 10 MG TAB PO SCH ×2 (08:27→12:50)
[2020-12-11] MEDS: MORPHINE 30 MG TAB **MSIR PO SCH ×2 (09:35→16:46)
--- NOTE | 2020-12-11 11:10 | DS.PDOC ---
Discharge Summary General Date of Admission Dec 08, 2020 at 02:18 Date of Discharge 12/11/20 Discharge Summary DISCHARGE DIAGNOSES: 1. Partial small bowel obstruction secondary to metastatic pancreatic cancer to the omentum. 2. Stage IV metastatic pancreatic cancer with malignant ascites and omental masses. 3. Biliary cholic with cholelithiasis. 4. Febrile neutropenia with sepsis with ANC of 2400 on admission and 1176 o 12/07/2020. Patient refused further blood work. 5. Cancer cachexia. 6. Chemotherapy induced leukopenia 7. Protein calorie malnutrition w decreased albumin 8. Fear of needles-refused blood work/medical noncompliance DISCHARGE MEDICATIONS: SEE BELOW DISCHARGE INSTRUCTIONS; COMPLETE ABX. MEDONC 1WK FU APPT. PCP 5 DAYS FU APPT. ENSURE TID W MEALS. HOSPITAL COURSE: A 35-year-old male with history of stage IV pancreatic cancer, nonsurgical, undergoing chemotherapy and follows at [facility], status post chemotherapy and discharged home last Monday, presented to the emergency room with worsening abdominal pain, found to have partial small bowel obstruction, cholelithiasis, biliary cholic, with increased omental metastatic lesions on CT abdomen and pelvis. Despite elevated bilirubin, patient had no ductal dilatation or obstruction on magnetic resonance cholangiopancreatography (MRCP). Patient had febrile neutropenia and was started on intravenous Zosyn. Absolute neutrophil count (ANC) at that time was 76 and did not require any Neupogen. Patient had rfused blood work, unable to assess for need for Neupogen. He had episodes of vomiting, but no signs of dehydration and completed intravenous (IV) fluids. General surgery was consulted and recommended supplemental nutrition with Ensure due to rule out possible chronic partial small bowel instruction with increased risk of complete obstruction in the future. Continue with antibiotics for now. Afebrile. No neutropenia. Pain medications with morphine sulfate-immediate release (MS-IR) three times a day. Reglan as an antiemetic. Discharge home in the morning with outpatient followup with his medical oncologist and primary care physician within a week of discharge. DISCHARGE PHYSICAL EXAMINATION: VITAL SIGNS: SEE BELOW GENERAL: Patient is awake, alert, oriented to person, place and time, answering questions appropriately. He appears disheveled. HEENT: Poor dentition, missing teeth, dental caries. Dry mucous membranes. No jugular venous distention (JVD), thyromegaly or cervical lymphadenopathy. LUNGS: Clear to auscultation. No wheezing, rales or rhonchi. Air entry is equal bilaterally. HEART: S1, S2. Sinus rhythm. No murmurs, rubs or gallops. No carotid bruit. ABDOMEN: Soft. slightly Tender in the epigastric, left upper quadrant without rebound or guarding. Slightly distended and tympanitic. EXTREMITIES: No cyanosis, clubbing or pitting edema. LABORATORY DATA/MICROBIOLOGY/IMAGING STUDIES: see chart TIME SPENT ON DISCHARGE: 30 MIN Vital Signs/I&Os Vital Signs Date Time Temp Pulse Resp B/P (MAP) Pulse Ox O2 Delivery O2 Flow Rate FiO2 12/11/20 09:35 18 Room Air 12/11/20 06:00 98.9 64 115/77 (90) 99 I&O- Last 24 Hours up to 6 AM 12/11/20 06:00 Intake Total 520 ml Balance 520 ml Discharge Medications Scheduled Metoclopramide HCl (Metoclopramide HCl) 10 Mg Tablet, 10 MG PO ACHS Morphine Sulfate (Morphine Sulfate) 30 Mg Tablet, 15 MG PO TID Scheduled PRN Gabapentin (Neurontin) 100 Mg Capsule, 100 MG PO TID PRN for NEUROPATHIC PAIN, (Reported) Ondansetron HCl (Ondansetron HCl) 8 Mg Tablet, 8 MG PO Q8H PRN for NAUSEA OR VOMITING, (Reported) Polyethylene Glycol 3350 (Miralax) 17 Gm Powd.pack, 17 GM PO DAILY PRN for CONSTIPATION, (Reported) Sennosides (Senna) 8.6 Mg Tablet, 2 TAB PO DAILY PRN for CONSTIPATION, (Reported) Tizanidine HCl (Tizanidine HCl) 4 Mg Tablet, 4 MG PO Q6H PRN for MUSCLE SPASMS, (Reported) Allergies Coded Allergies: Sulfa (Sulfonamide Antibiotics) (Verified Allergy, Unknown, unknown, 02/02/20) AUGUSTINE DUGAN MD Dec 11, 2020 11:10
--- NOTE | 2020-12-14 10:04 | CR.PDOC ---
General Surgery Consultation Date of Consultation 12/09/20 History and Physical CONSULT REPORT FOR: Claire Sood MD (hospitalist service) REASON FOR CONSULTATION: Abdominal pain HISTORY OF PRESENT ILLNESS: Patient is a 35-year-old male who had recently been diagnosed with metastatic pancreatic malignancy and has started chemotherapy at [facility] admitted for worsening of his chronic abdominal pain. According to him he has been relatively asymptomatic up until September when he started having left-sided abdominal discomfort radiating to the back and to the right side which initially comes in waves but has been fairly constant since. He also reports fullness, anorexia and ongoing weight loss. With the symptoms he was seen at the emergency room with abnormal imaging study, later on followed up with Dr. Sparrow in our clinic. At some point he presented I think [facility] then later transferred to [facility] and the diagnosis of pancreatic malignancy was made and he was started on chemotherapy. He finished his first cycle Monday and developed worsening abdominal pain while he was at home that did improve with his home dose of oral morphine. He also had bilious vomiting. He reports small loose bowel movements. In the emergency room (12/07/2020) he had a CT scan of the abdomen and pelvis demonstrating the above findings related to the pancreatic malignancy but also noted to may have partial small bowel obstruction. He has not required nasogastric tube. He was also noted to have cholelithiasis though without any evidence of gallbladder wall thickening or wall edema. His LFTs are normal. He is pain according to him is mostly over on the left side but he did have some new right-sided abdominal pain radiating to the right upper and right lower quadrant area that comes and goes in waves. I was asked to see the patient with regards to possibility that he has been having biliary colic type symptoms related to his gallbladder. He also has had an abdominal MRI done yesterday. When I saw the patient on the afternoon of 12/09/2020 he was sitting up in bed and appears fairly comfortable. He reports his pain has improved since yesterday. He has been able to tolerate a liquid diet without any exacerbation of his discomfort. He has been having small amounts of loose stools. He denies any ongoing nausea though he does have episodes of nausea still relieved with Zofran. No fevers or chills. He reports he is intermittently passing flatus. He is able to walk the halls independently. No fevers or chills noted on the vital signs here in the hospital. PAST MEDICAL HISTORY: 1. Recently diagnosed with metastatic pancreatic malignancy with noted metastasis to the omentum, peritoneum. PAST SURGICAL HISTORY: INCLUDES: 1. Most of previous midline laparotomy incision which according to the patient's he was septic on presentation, needed ex lap also needed temporary colostomy/ileostomy which was subsequently reversed. ALLERGIES: Please see below. FAMILY HISTORY: . HOME MEDICATIONS: Please see below. REVIEW OF SYSTEMS: Patient prior to September deemed himself healthy and was not having any chronic problems. Never had any episodes of pancreatitis. Nor any biliary colic type symptoms. By September he was having this sudden onset of abdominal pain mainly in the left side with associated nausea, vomiting, fullness and also not weight loss also has had some intermittent fevers with no chills. He denies any shortness of breath. He is able to do light activities, ambulate independently without any chest pains no shortness of breath. He denies any dysuria, hematuria and nocturia. Denies any prior history for diabetes or other endocrine problems. He has just started on chemotherapy and reports that last week he was very weak, throwing up and having lots of diarrhea. He is not sure if he wants to continue on the same chemotherapy drugs. Denies any longstanding leg edema. PHYSICAL EXAMINATION: VITALS SIGNS: Please see below. GENERAL APPEARANCE: Patient seen sitting up on the bed. He looks comfortable. He is aware of his diagnosis and its clinical implications and seems to be pretty realistic with his expectations from it. He is cooperative.. SKIN: Skin is warm and moist, no jaundice. HEENT: [Normocephalic, atraumatic. [place] palpebral conjunctiva, anicteric sclerae. Lips and mucosa appear moist]. NECK: [Supple, no thyromegaly. No obvious jugular venous distention]. LUNGS: [Clear to auscultation bilaterally. No wheezing appreciated]. HEART: [No chest wall abnormalities. Regular rate and rhythm with no murmurs appreciated]. ABDOMEN: Abdomen is mildly distended, slightly protuberant, soft, he has a prior midline incision with that the inferior rectus cleavage but I do not note any hernias at the site. Also has a prior transverse incision from his colostomy. He is mildly tender during the palpation mostly at the left upper quadrant area. I cannot feel any masses. I hear normal active bowel sounds. He is nontender over the epigastric and right upper quadrant area. EXTREMITIES: No significant edema ANCILLARIES: . LABORATORY DATA: Please see below. IMAGING STUDIES: . I reviewed his imaging studies which includes a CT abdomen and pelvis performed 12/07/2020 and abdominal MRI performed 12/08/2020 IMPRESSION AND PLAN: Abdominal pain most likely related to the mesenteric involvement and omental involvement/metastasis secondary to a tail of pancreas malignancy. He also does have evidence of partial bowel obstruction which may be chronic. Despite this he is able to tolerate some food, soft solid food and liquids but would have episodes of nausea and vomiting. This is fairly well controlled with medications. He is not requiring any nasogastric tube. He denies any prior episodes of biliary colic type symptoms nor any prior episodes of pancreatitis. He reports his discomfort or pain is mostly over the left upper quadrant area though he does admit to some right upper quadrant discomfort. I do not see any evidence symptom meek of cholecystitis. Imaging meek he also does not have any evidence of acute or chronic cholecystitis. His LFTs are normal. He is leukopenic secondary to his postchemotherapy state and he is having some low- grade fever from this but no evidence of any infection that I could tell on my review of his chart and on my examination. I do not believe he has cholecystitis. He may or may not have biliary colic type symptoms but this seems to be minimal. I think most of the symptoms relate to some sort of chronic partial obstruction which does render him intermittently symptomatic but looks like he is able to manage for now. I spoke to him about trying to change his dietary habits into small meals, soft foods, supplementing this with protein supplements and encouraged him to continue with chemotherapy. It may very well be at some point that he may be obstructed enough that he may need surgical intervention, usually some sort of small bowel bypass though on review of his imaging he has multiple areas that seems to be involved. At this point I do not think he needs any surgical intervention nor close follow-up unless symptoms progress. Vital Signs Vital Signs Date Time Temp Pulse Resp B/P (MAP) Pulse Ox O2 Delivery O2 Flow Rate FiO2 12/11/20 17:16 18 Room Air 12/11/20 06:00 98.9 64 115/77 (90) 99 Home Medications Scheduled Metoclopramide HCl (Metoclopramide HCl) 10 Mg Tablet, 10 MG PO ACHS Morphine Sulfate (Morphine Sulfate) 30 Mg Tablet, 15 MG PO TID Scheduled PRN Gabapentin (Neurontin) 100 Mg Capsule, 100 MG PO TID PRN for NEUROPATHIC PAIN, (Reported) Ondansetron HCl (Ondansetron HCl) 8 Mg Tablet, 8 MG PO Q8H PRN for NAUSEA OR VOMITING, (Reported) Polyethylene Glycol 3350 (Miralax) 17 Gm Powd.pack, 17 GM PO DAILY PRN for CONSTIPATION, (Reported) Sennosides (Senna) 8.6 Mg Tablet, 2 TAB PO DAILY PRN for CONSTIPATION, (Reported) Tizanidine HCl (Tizanidine HCl) 4 Mg Tablet, 4 MG PO Q6H PRN for MUSCLE SPASMS, (Reported) Allergies Coded Allergies: Sulfa (Sulfonamide Antibiotics) (Verified Allergy, Unknown, unknown, 02/02/20) ZULY MACHADO MD Dec 14, 2020 10:04
== END 2020-12-11 17:25 | disposition home or self-care (01) | DRG 720 ==
LOC: M ED 20:59 → M ED INP 12-08 02:18 → M MS5PR 12-08 05:55
PROVIDERS: ADMIT Internal Medicine; ATTEND General Practice
DX: A41.9 Sepsis, unspecified organism (principal); R18.0 Malignant ascites; K56.600 Partial intestinal obstruction, unspecified as to cause; E46 Unspecified protein-calorie malnutrition; R64 Cachexia; C25.2 Malignant neoplasm of tail of pancreas; D70.2 Other drug-induced agranulocytosis; C78.6 Secondary malignant neoplasm of retroperitoneum and peritoneum; C78.7 Secondary malignant neoplasm of liver and intrahepatic bile duct; R11.2 Nausea with vomiting, unspecified; K80.20 Calculus of gallbladder without cholecystitis without obstruction; Z92.21 Personal history of antineoplastic chemotherapy; Z91.19 Patient's noncompliance with other medical treatment and regimen; Z79.899 Other long term (current) drug therapy; Z88.2 Allergy status to sulfonamides

== ENCOUNTER 2020-12-15 01:58 | Emergency (ER) | payer MEDICAID ==
[~2020-12-15] VITALS: Ht 180.3 cm; Wt 77.2 kg
[~2020-12-15 01:58] MED LIST changes: +METO10TA2 PO; +MIRA1POW3 PO; +MORP15TA2 PO; +MSIR30TA PO; +NEUR100C PO; +ONDA-196 PO; +PROC10TA4 PO; +SENN8.6T28 PO; +TIZA4TAB4 PO
[2020-12-15 01:59] VITALS: BP 137/88
--- OUTSIDE RECORDS SUMMARY | 2020-12-15 02:04 | CCD | Continuity of Care Document ---
Author Author Oh SHELL M.D. Organization Unknown Address [address] [place] [address], [address] [place] [address] Phone [phone] Care Team Providers Care Quality Measurement Specialist Name Role Phone No PCP AUTM Unavailable Problems Description No Information Available Social History Type Date Description Comments Sex Unknown ETOH Use Denies alcohol use none in 3 mon ths Tobacco Use Start: Unknown Denies Smoking Recreational Drug Use Denies Drug Use Allergies, Adverse Reactions, Alerts Active Allergies Criticality Reaction | Severity Comments Date Sulfa Unable to assess criticality 11/23/2020 Medications Active Medications SIG Qnty Indications Ordering Provide r Date Tizanidine HCL 4mg Tablets Take One Tablet By Mouth Every 6 Hours as Needed Unknown Immunizations Description No Information Available Vital Signs Date Vital Result Comment 11/23/2020 10:16am BP Systolic 124 mmHg BP Diastolic 82 mmHg Body Temperature 98.2 F Height 70 inches 5'10" Weight 189.38 lb BMI (Body Mass Index) 27.2 kg/m2 [place] Body Weight 166 lb Weight 85.900 kg BSA (Body Surface Area) 2.04 m2 Results Description No Information Available Procedures Description No Information Available Medical Devices Description No Information Available Encounters Description No Information Available Assessments Description No Information Available Plan of Treatment No Information Available Functional Status Description No Information Available Mental Status Description No Information Available Referrals Description No Information Available
--- OUTSIDE RECORDS SUMMARY | 2020-12-15 02:04 | CCD | Continuity of Care Document ---
Author Author Oh SPARROW M.D. Organization Unknown Address [address] [place] [address], [address] [place] [address] Phone [phone] Care Team Providers Care Appraisal Analyst Name Role Phone No PCP AUTM Unavailable [...] lb BMI (Body Mass Index) 27.2 kg/m2 [place] Body Weight 166 lb Weight 85.900 kg BSA (Body Surface Area) 2.04 m2 Results Description No Information Available Procedures Date Code Description Status 11/23/2020 54569 Office/Outpatient New Moderate M DM 45-59 Minutes Completed Medical Devices Description No Information Available Encounters Type Date Location Provider Dx Diagnosis Office Visit 11/23/2020 10:15a [facility] Oh millan M.D. K85.91 Acute pancreatitis with uninfected necro sis, unspecified K80.20 Calculus of gallbladder w/o cholecystitis w/o obstruction Assessments Date Code Description Provider 11/23/2020 K85.91 Acute pancreatitis with uninfect ed necrosis, unspecified Oh Sparrow M.D. 11/23/2020 K80.20 Calculus of gallblad sandy without cholecystitis without obstruction Oh Sparrow M.D. Plan of Treatment 11/23/2020 - Oh Sparrow M.D.* K85.91 Acute pancreatitis with uninfected necrosis, unspecified* Comments:* Patient's history of acute onset of left flank pain becoming then more diffuse sounds more typical of acute pancreatitis. His CT scan done several weeks later apparently showed changes in the tail of the pancreas with multiple small fluid collections scattered in the abdomen. He has gallstones noted on his CT scan as well. I think at this age the likelihood of this being pancreatic cancer is quite low. I also think the appearance is more consistent with acute pancreatitis then of a pancreatic mass. He remains quite tender on palpation of the abdomen. He is only 9 days since he had the CT scan showing significant changes so perhaps this is not unexpected. He may be developing pancreatic pseudocyst. He is afebrile currently. He is losing weight but has been able to maintain hydration. I have recommended that we repeat his labs now to include a CBC with a diffe rential, CPA, amylase, lipase, and a CRP. I also think that an MRI would be appropriate to more fully evaluate the pancreas. He will have the labs done and we will order the MRI. I have asked him to follow-up as soon as the testing has been completed. If he has worsening symptoms he will let us know sooner. * K80.20 Calculus of gallbladder without cholecystitis without obstruction Functional Status Description No Information Available Mental Status Description No Information Available Referrals Description No Information Available
--- OUTSIDE RECORDS SUMMARY | 2020-12-15 02:04 | CCD | Continuity of Care Document ---
Author Author Oh MITCHELL [place] Organization Unknown Address [address] [place] [address], [address] [address] Phone [phone] Care Team Providers Care Medical Receptionist Medical Assistant Name Role Phone Keaton Lombardi MD AUTJeramy Unavailable Problems Description No Information Available Social History Type Date Description Comments Sex Unknown ETOH Use Occasionally consumes alcohol Tobacco Use Start: Unknown Patient has never smoked Allergies, Adverse Reactions, Alerts Active Allergies Reaction Severity Comments Date sulfa drugs 06/08/2017 Medications Active Medications SIG Qnty Indications Ordering Provide r Date Tizanidine HCL 4mg Tablets one tab by mouth every 6 hours as needed 60tabs S39.012A Rose Bradley am, MD 08/25/2020 Gabapentin 100mg Capsules 1-2 po tid, if needed may increase to 2 po tid after 1 week, if needed may increase to 3 po tid after 1 week 270caps Rose Watt MD 021 Naprosyn 500mg Tablets 1 by mouth twice a day with food. 60tabs S39.012A Raul Peterson MD 06/08/2017 Tramadol HCL 50mg Tablets 1 every 4-6 hours as needed pain 60tabs S39.012A Raul Peterson MD 018 Aleve 220mg Tablets 1 by mouth twice a day w/ food for 10-14 days then as needed Unknown Naproxen 500mg Tablets 1 by mouth twice a day Unknown Diazepam 5mg/ml Concentrate Unknown Hydrocodone-Acetaminophen 325mg Ta blets 1 by mouth three times a day Unknown Immunizations Description No Information Available Vital Signs Date Vital Result Comment 08/25/2020 10:43am Body Temperature 97.5 F Height 72.25 inches 6'0.25" Weight 198.50 lb BMI (Body Mass Index) 26.7 kg/m2 06/08/2017 10:01am Body Temperature 97.9 F Height 71 inches 5'11" Weight 200.00 lb BMI (Body Mass Index) 27.9 kg/m2 Results Description No Information Available Procedures Date Code Description Status 10/01/2020 23854 Office/Outpatient Established Lo w MDM 20-29 Min Completed 09/09/2020 15402 Office/Outpatient Established Mo d MDM 30-39 Min Completed 08/25/2020 52799 Office/Outpatient New Moderate M DM 45-59 Minutes Completed 08/25/2020 70273 X-Ray Spine Lumbosacral Complete W/Oblique 4 Views Completed Medical Devices Description No Information Available Encounters Type Date Location Provider Dx Diagnosis Office Visit 10/01/2020 4:00p [place] TAMEKA Johnson M51.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, lumbosacral region Office Visit 09/09/2020 8:45a [place] Frank Hightower MD M51.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, lumbosacral region Office Visit 08/25/2020 10:00a [place] TAMEKA Johnson M54.5 Low back pain M51.17 Intvrt disc disorders w radi culopathy, lumbosacral region M51.36 Other intervertebral disc de generation, lumbar region M54.16 Radiculopathy, lumbar region Assessments Date Code Description Provider 10/01/2020 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 Functional Status Description No Information Available Mental Status Description No Information Available Referrals Refer to Dr Reason for Referral Status Appt Date Reinaldo Mitchell I, Pac MRI LUMBAR SPINE [place] TO [facility] ER MT[facility] (REASONABLE DISTANCE) PASSED TO TRIAGE. LS Created [address] [place] [address] [address] [place] [address] [phone]
--- OUTSIDE RECORDS SUMMARY | 2020-12-15 02:04 | CCD | Continuity of Care Document ---
Author Author Oh MITCHELL [place] Organization Unknown Address [address] [place] [address], [facility] [address] [place] [address] Phone [phone] Care Team Providers Care Heat Seal Operator Name Role Phone Keaton Lombardi MD AUTJeramy [...] Available Procedures Date Code Description Status 10/01/2020 16134 Office/Outpatient Established Lo w MDM 20-29 Min Completed 09/09/2020 77618 Office/Outpatient Established Mo d MDM 30-39 Min Completed 08/25/2020 08350 Office/Outpatient New Moderate M DM 45-59 Minutes Completed 08/25/2020 57102 X-Ray Spine Lumbosacral Complete W/Oblique 4 Views Completed Medical Devices Description No Information Available Encounters Type Date Location Provider Dx Diagnosis Office Visit 10/01/2020 4:00p [place] TAMEKA Johnson M51.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, lumbosacral region Office Visit 09/09/2020 8:45a [place] Frank Hightower MD M51.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, lumbosacral region Office Visit 08/25/2020 10:00a [place] TAMEKA Johnson M54.5 Low back pain M51.17 [...] I, Pac MRI LUMBAR SPINE [place] TO [facility] ER [facility] (REASONABLE DISTANCE) PASSED TO TRIAGE. LS Created [address] [place] [address] [address] [place] [address] [phone]
--- OUTSIDE RECORDS SUMMARY | 2020-12-15 02:04 | CCD | Continuity of Care Document ---
Author Author Oh MITCHELL [place] Organization Unknown Address [address] [place] [address], [address] [address] Phone [phone] Care Team Providers Care Plywood Stock Grader Name Role Phone Keaton Lombardi MD AUTJeramy [...] Available Procedures Date Code Description Status 10/01/2020 77103 Office/Outpatient Established Lo w MDM 20-29 Min Completed 09/09/2020 01546 Office/Outpatient Established Mo d MDM 30-39 Min Completed 08/25/2020 91981 Office/Outpatient New Moderate M DM 45-59 Minutes Completed 08/25/2020 35403 X-Ray Spine Lumbosacral Complete W/Oblique 4 Views Completed Medical Devices Description No Information Available Encounters Type Date Location Provider Dx Diagnosis Office Visit 10/01/2020 4:00p [place] TAMEKA Johnson M51.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, lumbosacral region Office Visit 09/09/2020 8:45a [place] Frank Hightower MD M51.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, lumbosacral region Office Visit 08/25/2020 10:00a [place] TAMEKA Johnson M54.5 Low back pain M51.17 [...] I, Pac MRI LUMBAR SPINE [place] TO [facility] ER [facility] (REASONABLE DISTANCE) PASSED TO TRIAGE. LS Created [address] [place] [address] [address] [place] [address] [phone]
--- OUTSIDE RECORDS SUMMARY | 2020-12-15 02:05 | CCD | Continuity of Care Document ---
Author Author Oh MONTES MD Organization Unknown Address [address] [place] [address] Phone [phone] Care Team Providers Care Air Crew Supervisor Name Role Phone Keaton Lombardi MD AUT Unavailable Problems Description No Information Available Social [...] Information Available Procedures Date Code Description Status 09/09/2020 88229 Office/Outpatient Established Mo d MDM 30-39 Min Completed 08/25/2020 41248 Office/Outpatient New Moderate M DM 45-59 Minutes Completed 08/25/2020 96613 X-Ray Spine Lumbosacral Complete W/Oblique 4 Views Completed Medical Devices Description No Information Available Encounters Type Date Location Provider Dx Diagnosis Office Visit 09/09/2020 8:45a [place] Frank Montes MD M51.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, lumbosacral region Office Visit 08/25/2020 10:00a [place] TAMEKA Johnson M54.5 Low back pain M51.17 Intvrt disc disorders w radi culopathy, lumbosacral region M51.36 Other intervertebral disc de generation, lumbar region M54.16 Radiculopathy, lumbar region Assessments Date Code Description Provider 09/09/2020 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, lumbosacral region Frank Montes MD 08/25/2020 M54.5 Low back pain TAMEKA Johnson 08/25/2020 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, lumbosacral region TAMEKA Johnson 08/25/2020 M51.36 Other intervertebral disc degene ration, lumbar region TAMEKA Johnson 08/25/2020 M54.16 Radiculopathy, lumbar region TAMEKA Childs Plan of Treatment 09/09/2020 - Frank Montes MD* 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 LS Created [address] [facility] [address] [place] [address] [phone]
--- OUTSIDE RECORDS SUMMARY | 2020-12-15 02:06 | CCD ---
Author Author [facility] Organization [facility] Address Unknown Phone Unavailable Care Team Providers Care Machine Design Teacher Name Role Phone Johny NEWBY MD Unavailable Unavailable Johny NEWBY MD Unavailable Unavailable Johny NEWBY MD Unavailable Unavailable Johny NEWBY MD Unavailable Unavailable Johny NEWBY MD Unavailable Unavailable Johny NEWBY MD Unavailable Unavailable ED, TEST DEFAULT Unavailable Unavailable NO, PCP Unavailable Unavailable GAYAM, SINDHURI RESIDENT Unavailable Unavailable GAYAM, SINDHURI RESIDENT Unavailable Unavailable GAYAM, SINDHURI RESIDENT Unavailable Unavailable GAYAM, SINDHURI RESIDENT Unavailable Unavailable GAYAM, SINDHURI RESIDENT Unavailable Unavailable GAYAM, SINDHURI RESIDENT Unavailable Unavailable GAYAM, SINDHURI RESIDENT Unavailable Unavailable Chika Hightower MD Unavailable Unavailable Chika Hightower MD Unavailable Unavailable Chika Hightower MD Unavailable Unavailable Chika Hightower MD Unavailable Unavailable Chika Hightower MD Unavailable Unavailable Chika Hightower MD Unavailable Unavailable Chika Hightower MD Unavailable Unavailable Chika Hightower MD Unavailable Unavailable Chika Hightower MD Unavailable Unavailable Hightower, L Frank CARMONA Unavailable Unavailable Hightower, L Frank CARMONA Unavailable Unavailable Hightower, L Frank CARMONA Unavailable Unavailable Hightower, L Frank CARMOAN Unavailable Unavailable Hightower, L Frank CARMONA Unavailable Unavailable Hightower, L Frank CARMONA Unavailable Unavailable Hightower, Chika Marie MD Unavailable Unavailable Hightower, Chika Marie MD Unavailable Unavailable Hightower, Chika Marie MD Unavailable Unavailable Hightower, L Frank CARMONA Unavailable Unavailable Hightower, L Frank CARMONA Unavailable Unavailable Hightower, L Frank CARMONA Unavailable Unavailable Hightower, L Frank CARMONA Unavailable Unavailable Hightower, L Frank CARMONA Unavailable Unavailable Hightower, L Frank CARMONA Unavailable Unavailable Hightower, L Frank CARMONA Unavailable Unavailable Hightower, L Frank CARMONA Unavailable Unavailable Hightower, L Frank CARMONA Unavailable Unavailable Hightower, L Frank CARMONA Unavailable Unavailable Hightower, L Frank CARMONA Unavailable Unavailable Hightower, L Frank CARMONA Unavailable Unavailable Hightower, L Frank CARMONA Unavailable Unavailable Hightower, L Frank CARMONA Unavailable Unavailable Hightower, L Frank CARMONA Unavailable Unavailable Hightower, Chika Marie MD Unavailable Unavailable Hightower, L Frank CARMONA Unavailable Unavailable Hightower, Chika Marie MD Unavailable Unavailable Hightower, Chika Marie MD Unavailable Unavailable Hightower, L Frank CARMONA Unavailable Unavailable Hightower, Chika Marie MD Unavailable Unavailable Hightower, Chika Marie MD Unavailable Unavailable Hightower, Chika Marie MD Unavailable Unavailable Hightower, Chika Marie MD Unavailable Unavailable Hightower, Chika Marie MD Unavailable Unavailable Hightower, Chika Marie MD Unavailable Unavailable Hightower, Chika Marie MD Unavailable Unavailable Hightower, Chika Marie MD Unavailable Unavailable Hightower, Chika Marie MD Unavailable Unavailable Hightower, Chika Marie MD Unavailable Unavailable Hightower, Chika Marie MD Unavailable Unavailable Hightower, Chika Marie MD Unavailable Unavailable Irwin Matthews MD Unavailable Unavailable Irwin Matthews MD Unavailable Unavailable Irwin Matthews MD Unavailable Unavailable Irwin Matthews MD Unavailable Unavailable Irwin Matthews MD Unavailable Unavailable Irwin Matthews MD Unavailable Unavailable Irwin Matthews MD Unavailable Unavailable Irwin Matthews MD Unavailable Unavailable Irwin Matthews MD Unavailable Unavailable Irwin Matthews MD Unavailable Unavailable Irwin Matthews MD Unavailable Unavailable Irwin Matthews MD Unavailable Unavailable Irwin Matthews MD Unavailable Unavailable Irwin Matthews MD Unavailable Unavailable Irwin Matthews MD Unavailable Unavailable Irwin Matthews MD Unavailable Unavailable Irwin Matthews MD Unavailable Unavailable Irwni Matthews MD Unavailable Unavailable Irwin Matthews MD Unavailable Unavailable Irwin Matthews MD Unavailable Unavailable Irwin Matthews MD Unavailable Unavailable Irwin Matthews MD Unavailable Unavailable Irwin Matthews MD Unavailable Unavailable Irwin Matthews MD Unavailable Unavailable Irwin Matthews MD Unavailable Unavailable Ricky, Alejo DO Unavailable Unavailable Ricky, Alejo DO Unavailable Unavailable Ricky, Alejo DO Unavailable Unavailable Ricky, Alejo DO Unavailable Unavailable Ricky, Alejo DO Unavailable Unavailable Ricky, Alejo DO Unavailable Unavailable Ricky, Alejo DO Unavailable Unavailable Ricky, Alejo DO Unavailable Unavailable Ricky, Alejo DO Unavailable Unavailable Ricky, Alejo DO Unavailable Unavailable Ricky, Alejo DO Unavailable Unavailable Ricky, Alejo DO Unavailable Unavailable Ricky, Alejo DO Unavailable Unavailable Ricky, Alejo DO Unavailable Unavailable Ricky, Alejo DO Unavailable Unavailable Ricky, Alejo DO Unavailable Unavailable Ricky, Alejo DO Unavailable Unavailable Ricky, Alejo DO Unavailable Unavailable Ricky, Alejo DO Unavailable Unavailable Ricky, Alejo DO Unavailable Unavailable Ricky, Alejo DO Unavailable Unavailable Ricky, Alejo DO Unavailable Unavailable Ricky, Alejo DO Unavailable Unavailable Ricky, Alejo DO Unavailable Unavailable Ricky, Alejo DO Unavailable Unavailable Ricky, Alejo DO Unavailable Unavailable Ricky, Alejo DO Unavailable Unavailable Ricky, Alejo DO Unavailable Unavailable Ricky, Alejo DO Unavailable Unavailable Ricky, Alejo DO Unavailable Unavailable Ricky, Alejo DO Unavailable Unavailable Ricky, Alejo DO Unavailable Unavailable Ricky, Alejo DO Unavailable Unavailable Ricky, Alejo DO Unavailable Unavailable Ricky, Alejo DO Unavailable Unavailable Ricky, Alejo DO Unavailable Unavailable Ricky, Alejo DO Unavailable Unavailable Ricky, Alejo DO Unavailable Unavailable Ricky, Alejo DO Unavailable Unavailable Ricky, Alejo DO Unavailable Unavailable Ricky, Alejo DO Unavailable Unavailable Ricky, Alejo DO Unavailable Unavailable Ricky, Alejo DO Unavailable Unavailable Ricky, Alejo DO Unavailable Unavailable Ricky, Alejo DO Unavailable Unavailable Ricky, Alejo DO Unavailable Unavailable Ricky, Alejo DO Unavailable Unavailable Ricky, Alejo DO Unavailable Unavailable Ricky, Alejo DO Unavailable Unavailable Ricky, Alejo DO Unavailable Unavailable Ricky, Alejo DO Unavailable Unavailable Ricky, Alejo DO Unavailable Unavailable Ricky, Alejo DO Unavailable Unavailable Ricky, Alejo DO Unavailable Unavailable Ricky, Alejo DO Unavailable Unavailable Ricky, Alejo DO Unavailable Unavailable Ricky, Alejo DO Unavailable Unavailable Ricky, Alejo DO Unavailable Unavailable Ricky, Alejo DO Unavailable Unavailable Ricky, Alejo DO Unavailable Unavailable Ricky, Alejo DO Unavailable Unavailable Ricky, Alejo DO Unavailable Unavailable Ricky, Alejo DO Unavailable Unavailable Ricky, Alejo DO Unavailable Unavailable Ricky, Alejo DO Unavailable Unavailable Ricky, Alejo DO Unavailable Unavailable Ricky, Alejo DO Unavailable Unavailable Ricky, Alejo DO Unavailable Unavailable Ricky, Alejo DO Unavailable Unavailable Ricky, Alejo DO Unavailable Unavailable Ricky, Alejo DO Unavailable Unavailable Ricky, Alejo DO Unavailable Unavailable Ricky, Alejo DO Unavailable Unavailable Ricky, Alejo DO Unavailable Unavailable Sulaiman, G Kaleigh Unavailable Unavailable Sulaiman, G Kaleigh Unavailable Unavailable Sulaiman, G Kaleigh Unavailable Unavailable Sulaiman, G Kaleigh Unavailable Unavailable Sulaiman, G Kaleigh Unavailable Unavailable Sulaiman, G Kaleigh Unavailable Unavailable Sulaiman, G Kaleigh Unavailable Unavailable Sulaiman, G Kaleigh Unavailable Unavailable Sulaiman, G Kaleigh Unavailable Unavailable Sulaiman, G Kaleigh Unavailable Unavailable Sulaiman, G Kaleigh Unavailable Unavailable Sulaiman, G Kaleigh Unavailable Unavailable Sulaiman, G Kaleigh Unavailable Unavailable Sulaiman, G Kaleigh Unavailable Unavailable Sulaiman, G Kaleigh Unavailable Unavailable Sulaiman, G Kaleigh Unavailable Unavailable Sulaiman, G Kaleigh Unavailable Unavailable Sulaiman, G Kaleigh Unavailable Unavailable Sulaiman, G Kaleigh Unavailable Unavailable Sulaiman, G Kaleigh Unavailable Unavailable Sulaiman, G Kaleigh Unavailable Unavailable Khadra AHN MD Unavailable Unavailable Khadra AHN MD Unavailable Unavailable Khadra AHN MD Unavailable Unavailable Khadra AHN MD Unavailable Unavailable Khadra AHN MD Unavailable Unavailable Khadra AHN MD Unavailable Unavailable Khadra AHN MD Unavailable Unavailable Khadra AHN MD Unavailable Unavailable Jeramy CHILDS MD Unavailable Unavailable Jeramy CHILDS MD Unavailable Unavailable Jeramy CHILDS MD Unavailable Unavailable Jeramy HCILDS MD Unavailable Unavailable Jeramy CHILDS MD Unavailable Unavailable Jeramy CHILDS MD Unavailable Unavailable Jeramy CHILDS MD Unavailable Unavailable Jeramy CHILDS MD Unavailable Unavailable Jeramy CHILDS MD Unavailable Unavailable Jeramy CHILDS MD Unavailable Unavailable Jeramy CHILDS MD Unavailable Unavailable Jeramy CHILDS MD Unavailable Unavailable Jeramy CHILDS MD Unavailable Unavailable Jeramy CHILDS MD Unavailable Unavailable Jeramy CHILDS MD Unavailable Unavailable Jeramy CHILDS MD Unavailable Unavailable Jeramy CHILDS MD Unavailable Unavailable SULEMAN, O SHERRIE CARMONA Unavailable Unavailable SULEMAN, O SHERRIE MD Unavailable Unavailable SULEMAN, O SHERRIE MD Unavailable Unavailable SULEMAN, O SHERRIE MD Unavailable Unavailable SULEMAN, O SHERRIE MD Unavailable Unavailable SULEMAN, O SHERRIE CARMONA Unavailable Unavailable SULEMAN, O SHERRIE MD Unavailable Unavailable SULEMAN, O SHERRIE MD Unavailable Unavailable SULEMAN, O SHERRIE MD Unavailable Unavailable SULEMAN, O SHERRIE MD Unavailable Unavailable SULEMAN, O SHERRIE MD Unavailable Unavailable SULEMAN, O SHERRIE MD Unavailable Unavailable SULEMAN, O SHERRIE MD Unavailable Unavailable SULEMAN, O SHERRIE MD Unavailable Unavailable SULEMAN, O SHERRIE MD Unavailable Unavailable SULEMAN, O SHERRIE MD Unavailable Unavailable SULEMAN, O SHERRIE MD Unavailable Unavailable SULEMAN, O SHERRIE MD Unavailable Unavailable SULEMAN, O SHERRIE MD Unavailable Unavailable SULEMAN, O SHERRIE MD Unavailable Unavailable SULEMAN, O SHERRIE MD Unavailable Unavailable SULEMAN, O SHERRIE MD Unavailable Unavailable SULEMAN, O SHERRIE MD Unavailable Unavailable SULEMAN, O SHERRIE MD Unavailable Unavailable SULEMAN, O SHERRIE MD Unavailable Unavailable SULEMAN, O SHERRIE MD Unavailable Unavailable SULEMAN, O SHERRIE MD Unavailable Unavailable SULEMAN, O SHERRIE MD Unavailable Unavailable SULEMAN, O SHERRIE MD Unavailable Unavailable SULEMAN, O SHERRIE MD Unavailable Unavailable SULEMAN, O SHERRIE MD Unavailable Unavailable SULEMAN, O SHERRIE MD Unavailable Unavailable SULEMAN, O SHERRIE MD Unavailable Unavailable SULEMAN, O SHERRIE MD Unavailable Unavailable SULEMAN, O SHERRIE MD Unavailable Unavailable SULEMAN, O SHERRIE MD Unavailable Unavailable SULEMAN, O SHERRIE MD Unavailable Unavailable SULEMAN, O SHERRIE MD Unavailable Unavailable SULEMAN, O SHERRIE MD Unavailable Unavailable SULEMAN, O SHERRIE MD Unavailable Unavailable SULEMAN, O SHERRIE MD Unavailable Unavailable SULEMAN, O SHERRIE MD Unavailable Unavailable Aura SHELL MD Unavailable Unavailable TURRIN, NICOLASA Unavailable Unavailable TURRIN, NICOLASA Unavailable Unavailable TURRIN, NICOLASA Unavailable Unavailable TURRIN, NICOLASA Unavailable Unavailable CHANDANA MIMARGARETG MD Unavailable Unavailable CHANDANA MIJUNG MD Unavailable Unavailable CHANDANA MIJUNG MD Unavailable Unavailable CHANDANA MIJUNG MD Unavailable Unavailable CHADNANA MIJUNG MD Unavailable Unavailable CHANDANA MIJUNG MD Unavailable Unavailable CHANDANA MIJUNG MD Unavailable Unavailable CHANDANA MIJUNG MD Unavailable Unavailable CHANDANA MIJUNG MD Unavailable Unavailable CHANDANA, MIJUNG MD Unavailable Unavailable CHANDANA, MIJUNG MD Unavailable Unavailable CHANDANA MIJUNG MD Unavailable Unavailable CHANDANA, MIJUNG MD Unavailable Unavailable CHANDANA MIJUNG MD Unavailable Unavailable CHANDANA MIJUNG MD Unavailable Unavailable CHANDANA MIJUNG MD Unavailable Unavailable CHANDANA, MIJUNG MD Unavailable Unavailable CHANDANA, MIJUNG MD Unavailable Unavailable CHANDANA, MIJUNG MD Unavailable Unavailable CHANDANA, MIJUNG MD Unavailable Unavailable CHANDANA, MIJUNG MD Unavailable Unavailable CHANDANA MIJUNG MD Unavailable Unavailable CHANDANA MIJUNG MD Unavailable Unavailable CHANDANA MIJUNG MD Unavailable Unavailable CHANDANA, MIJUNG MD Unavailable Unavailable CHANDANA, MIJUNG MD Unavailable Unavailable CHANDANA MIJUNG MD Unavailable Unavailable CHANDANA, MIJUNG MD Unavailable Unavailable CHANDANA, MIJUNG MD Unavailable Unavailable CHANDANA MIJUNG MD Unavailable Unavailable CHANDANA MIJUNG MD Unavailable Unavailable CHANDANA MIJUNG MD Unavailable Unavailable CHANDANA, MIJUNG MD Unavailable Unavailable CHANDANA, MIJUNG MD Unavailable Unavailable CHANDANA, MIJUNG MD Unavailable Unavailable CHANDANA, MIJUNG MD Unavailable Unavailable CHANDANA MIJUNG MD Unavailable Unavailable CHANDANA MIJUNG MD Unavailable Unavailable CHANDANA MIJUNG MD Unavailable Unavailable CHANDANA MIJUNG MD Unavailable Unavailable CHANDANA, MIJUNG MD Unavailable Unavailable CHANDANA MIJUNG MD Unavailable Unavailable CHANDANA MIJUNG MD Unavailable Unavailable CHANDANA, MIJUNG MD Unavailable Unavailable CHANDANA, MIJUNG MD Unavailable Unavailable CHANDANA MIJUNG MD Unavailable Unavailable CHANDANA MIJUNG MD Unavailable Unavailable CHANDANA MIJUNG MD Unavailable Unavailable CHANDANA MIJUNG MD Unavailable Unavailable CHANDANA, MIJUNG MD Unavailable Unavailable CHANDANA, MIJUNG MD Unavailable Unavailable CHANDANA, MIJUNG MD Unavailable Unavailable CHANDANA, MIJUNG MD Unavailable Unavailable CHANDANA MIJUNG MD Unavailable Unavailable CHANDANA MIJUNG MD Unavailable Unavailable CHANDANA MIJUNG MD Unavailable Unavailable CHANDANA MIJUNG MD Unavailable Unavailable FANI ELLINGTON MD Unavailable Unavailable DRAZEK, I NELL PA Unavailable Unavailable DRAZEK, I NELL PA Unavailable Unavailable DRAZEK, I NELL PA Unavailable Unavailable DRAZEK, I NELL PA Unavailable Unavailable DRAZEK, I NELL PA Unavailable Unavailable DRAZEK, I NELL PA Unavailable Unavailable DRAZEK, I NELL PA Unavailable Unavailable DRAZEK, I NELL PA Unavailable Unavailable DRAZEK, I NELL PA Unavailable Unavailable DRAZEK, I NELL PA Unavailable Unavailable DRAZEK, I NELL PA Unavailable Unavailable DRAZEK, I NELL PA Unavailable Unavailable DRAZEK, I NELL PA Unavailable Unavailable DRAZEK, I NELL PA Unavailable Unavailable DRAZEK, I NELL PA Unavailable Unavailable DRAZEK, I NELL PA Unavailable Unavailable DRAZEK, I NELL PA Unavailable Unavailable DRAZEK, I NELL PA Unavailable Unavailable DRAZEK, I NELL PA Unavailable Unavailable DRAZEK, I NELL PA Unavailable Unavailable DRAZEK, I NELL PA Unavailable Unavailable DRAZEK, I NELL PA Unavailable Unavailable DRAZEK, I NELL PA Unavailable Unavailable DRAZEK, I NELL PA Unavailable Unavailable DRAZEK, I NELL PA Unavailable Unavailable DRAZEK, I NELL PA Unavailable Unavailable DRAZEK, I NELL PA Unavailable Unavailable DRAZEK, I NELL PA Unavailable Unavailable DRAZEK, I NELL PA Unavailable Unavailable DRAZEK, I NELL PA Unavailable Unavailable TASHIA PHOENIX MD Unavailable Unavailable TASHIA PHOENIX MD Unavailable Unavailable Dana Betts MD Unavailable Unavailable Dana Betts MD Unavailable Unavailable Dana Betts MD Unavailable Unavailable Dana Betts MD Unavailable Unavailable Dana Betts MD Unavailable Unavailable Dana Betts MD Unavailable Unavailable Dana Betts MD Unavailable Unavailable Dana Betts MD Unavailable Unavailable Dana Betts MD Unavailable Unavailable Dana Betts MD Unavailable Unavailable Dana Betts MD Unavailable Unavailable Dana Betts MD Unavailable Unavailable Dana Betts MD Unavailable Unavailable Dana Betts MD Unavailable Unavailable Dana Betts MD Unavailable Unavailable Dana Betts MD Unavailable Unavailable Dana Betts MD Unavailable Unavailable Dana Betts MD Unavailable Unavailable Roxane, Mashaal MD Unavailable Unavailable Roxane, Mashaal MD Unavailable Unavailable Roxane, Mashaal MD Unavailable Unavailable Roxane, Mashaal MD Unavailable Unavailable Roxane, Mashaal MD Unavailable Unavailable Roxane, Mashaal MD Unavailable Unavailable Roxane, Mashaal MD Unavailable Unavailable Roxane, Mashaal MD Unavailable Unavailable Roxane, Mashaal MD Unavailable Unavailable Roxane, Mashaal MD Unavailable Unavailable Roxane, Mashaal MD Unavailable Unavailable Roxane, Mashaal MD Unavailable Unavailable Roxane, Mashaal MD Unavailable Unavailable Roxane, Mashaal MD Unavailable Unavailable Roxane, Mashaal MD Unavailable Unavailable Roxane, Mashaal MD Unavailable Unavailable Roxane, Mashaal MD Unavailable Unavailable Roxane, Mashaal MD Unavailable Unavailable Roxane, Mashaal MD Unavailable Unavailable Roxane, Mashaal MD Unavailable Unavailable Roxane, Mashaal MD Unavailable Unavailable Roxane, Mashaal MD Unavailable Unavailable Roxane, Mashaal MD Unavailable Unavailable Roxane, Mashaal MD Unavailable Unavailable Roxane, Mashaal MD Unavailable Unavailable Roxane, Mashaal MD Unavailable Unavailable Roxane, Mashaal MD Unavailable Unavailable Roxane, Mashaal MD Unavailable Unavailable Roxane, Mashaal MD Unavailable Unavailable Roxane, Mashaal MD Unavailable Unavailable Roxane, Mashaal MD Unavailable Unavailable Roxane, Mashaal MD Unavailable Unavailable Roxane, Mashaal MD Unavailable Unavailable Roxane, Mashaal MD Unavailable Unavailable Roxane, Mashaal MD Unavailable Unavailable Roxane, Mashaal MD Unavailable Unavailable Roxane, Mashaal MD Unavailable Unavailable Roxane, Mashaal MD Unavailable Unavailable Roxane, Mashaal MD Unavailable Unavailable Orxane, Mashaal MD Unavailable Unavailable Roxane, Mashaal MD Unavailable Unavailable Roxane, Mashaal MD Unavailable Unavailable Re-disclosure Warning The records that you are about to access may contain information from federally-assisted alcohol or drug abuse programs. If such information is present, then the following federally mandated warning applies: This information has been disclosed to you from records protected by federal confidentiality rules (42 CFR part 2). The federal rules prohibit you from making any further disclosure of this information unless further disclosure is expressly permitted by the written consent of the person to whom it pertains or as otherwise permitted by 42 CFR part 2. A general authorization for the release of medical or other information is NOT sufficient for this purpose. The Federal rules restrict any use of the information to criminally investigate or prosecute any alcohol or drug abuse patient.The records that you are about to access may contain highly sensitive health information, the redisclosure of which is protected by Article 27-F of the [facility] Public Health law. If you continue you may have access to information: Regarding HIV / AIDS; Provided by facilities licensed or operated by the [facility] Office of Mental Health; or Provided by the [facility] Office for People With Developmental Disabilities. If such information is present, then the following [facility] mandated warning applies: This information has been disclosed to you from confidential records which are protected by state law. State law prohibits you from making any further disclosure of this information without the specific written consent of the person to whom it pertains, or as otherwise permitted by law. Any unauthorized further disclosure in violation of state law may result in a fine or usp sentence or both. A general authorization for the release of medical or other information is NOT sufficient authorization for further disc losure. Allergies and Adverse Reactions Type Description Substance Reaction Status Data Source(s ) Propensity to adverse reactions SULFA ANTIBIOTICS SULFA ANTIBIOTICS O ther [facility] Family History Family Member Name Family Member Gender Family Member Status Date o f Status Description Data Source(s) Unknown Male Problem [facility] ([facility]) Encounters Encounter Providers Location Date Indications Data Source(s ) Outpatient Attender: Irwin Matthews MDReferrer: FANI ELLINGTON MD 12/21/2020 12:00:00 AM [facility] Outpatient Attender: Irwin Matthews MDReferrer: FANI ELLINGTON MD 12/16/2020 12:00:00 AM [facility] Outpatient Attender: Kaleigh Hilario 12/15/2020 12:00:00 A M [facility] Outpatient Attender: FANI ELLINGTON MD 12/09/2020 12:00: 00 AM [facility] Malignant neoplasm of pancreas, unspecified [facility] Malignant neoplasm of pancreas, unspecif ied Outpatient Attender: FANI ELLINGTON MD 12/09/2020 12:00:00 AM [facility] Inpatient Attender: TASHIA PHOENIX MD Admitter: TASHIA PHOENIX MDReferrer: TASHIA PHOENIX MD 11/30/2020 12:00:00 AM EDT - 11/30/2020 11:59:00 PM EDT [facility] Inpatient Attender: MAGDALENE MAUREENIRENE RESIDENTReferrer: MAREK JOHNSTON RESIDENT 11/30/2020 12:00:00 AM EDT [facility] Inpatient Attender: Alejo García DOAtten sandy: FANI ELLINGTON MDAttender: MAGDALENE JOHNSTON RESIDENTAttender: TASHIA PHOENIX MDAttender: KESHIA NEWBY MDAttender: PARIS AHN MDAdmitter: MAGDALENE JOHNSTON RESIDENTReferrer: MAGDALENE JOHNSTON RESIDENTConsultant: Alejo García [id number] 11/29/2020 12:00:00 AM EDT - 12/05/2020 01:15:00 PM EDT [facility] Nausea Patient discharged. Outpatient Attender: Dana Betts MD [id number] 11/28/2020 10:55:45 AM EDT [facility] Inpatient Attender: YOLY CHILDS MDReferrer: YOLY CHILDS MD 11/27/2020 12:00:00 AM EDT Other specified diseases of pancreas [facility] Other specified diseases of pancreas Inpatient Attender: YOLY CHILDS MDAtt yennifer: TASHIA PHOENIX MDAttender: PARIS AHN MDAttender: DEFAULT EDAdmitter: TASHIA PHOENIX MD [id number] 11/26/2020 12:00:00 AM EDT - 11/28/2020 10:30:00 AM EDT sent by provider [facility] sent by provider Patient discharged. Emergency Attender: NICOLASA ALBERTSConsultant: PCP NO 11/23/2020 10:52:00 PM EDT - 11/24/2020 03:21:00 AM EDT [facility] Patient discharged. Outpatient Attender: SHERRIE Dunaway/Brittney/Gato/Sherry indl 11/23/2020 10:15:00 AM EDT [facility] OFFICE OUTPATIENT VISIT 15 MINUTES Attender: NELL ENGLISH Phys ical Therapy 10/01/2020 04:00:00 PM EDT [facility] ([facility] ) Outpatient Attender: Frank Hightower MD Physical Therapy 09/09/2020 0 8:45:00 AM EDT [facility] ([facility] ) Outpatient Attender: NELL ENGLISH Physical Therapy 08/25/2020 1 0:00:00 AM EDT [facility] ([facility] ) Medications Medication Brand Name Start Date Product Form Dose Route Admi nistrative Instructions Pharmacy Instructions Status Indications Reaction Description Data Source(s) 100 mg 09/01/2020 12:00:00 AM EDT capsule 270 TAKE 1-2 CAPSULES BY MOUTH THREE TIMES A DAY, IF NEEDED MAY INCREASE TO 2 THREE TIMES A DAY AFTER 1 WEEK, THEN MAY INCREASE TO 3 THREE TIMES A DAY AFTER 1 WEEK TAKE 1-2 CAPSULES BY MOUTH THREE TIMES A DAY, IF NEEDED MAY INCREASE TO 2 THREE TIMES A DAY AFTER 1 WEEK, THEN MAY INCREASE TO 3 THREE TIMES A DAY AFTER 1 WEEK SOLD: 09/01/2020 [facility] gabapentin 100 MG Oral Capsule Gabapentin 08/25/2020 12:00:00 AM EDT ORAL active [facility] ([facility]) tizanidine 4 MG Oral Tablet Tizanidine HCL 08/25/2020 12:00:00 AM EDT ORAL active [facility] ([facility] ) tizanidine 4 MG Oral Tablet TIZANIDINE HCL 08/25/2020 12:00:00 AM EDT tablet 60 TAKE ONE TABLET BY MOUTH EVERY 6 HOURS NEEDED TAKE ONE TABLET BY MOUTH EVERY 6 HOURS NEEDED SOLD: 09/01/2020 [facility] Insurance Providers Payer name Policy type / Coverage type Policy ID Covered alliance party ID Covered alliance party's relationship to butler Policy Butler Plan Information [facility] () Workers Compensation [id number] Self [id number] [facility] () Workers Compensation [id number] Self [id number] [facility] () Workers Compensation [id number] Self 7 [id number] [id number] [id number] MEDICAID M [id number] Self [id number] BCBS EMPIRE STAN DIV [id number] SP [id number] STATE INSURANCE FUND O [id number] S [id number] BCBS EMPIRE STAN DIV [id number] SP [id number] SELF PAY ONLY [id number] SP [id number] UNAVAILABLE UNAVAILA BLE STATE INSURANCE FUND [id number] SP [id number] SELF PAY UNAVAILABLE SP UNAVAILA BLE NATIONAL GENERAL INSURANCE [id number] SP [id number] [place] MEDICAID [id number] SP [id number] P [place] OF [place] WATN 306/[id number] SP [id number] BLUE CROSS BLUE SHIELD -O/P [id number] 18 [id number] STATE INSURANCE FUND [id number] SP [id number] STATE INSURANCE FUND [id number] SP [id number] Problems, Conditions, and Diagnoses Code Display Name Description Problem Type Effective Dates Data Source(s) C25.9 Malignant neoplasm of pancreas, unspecif ied Malignant neoplasm of pancreas, unspecified Diagnosis 12/09/2020 12:00:00 AM EDT [facility] Nausea Nausea Diagnosis 11/29/2020 01:32:00 PM ED T [facility] R10.9 Unspecified abdominal pain Unspecified abdominal pain Diagnosis 11/27/2020 05:32:08 PM EDT [facility] K86.89 Other specified diseases of pancreas Oth er specified diseases of pancreas Diagnosis 11/27/2020 05:32:08 PM EDT [facility] sent by provider sent by provider Diagnosis 11/26/2020 12 :15:00 PM EDT [facility] Z8719 Personal history of other diseases of th e digestive system Personal history of other diseases of the digestive system [facility] Procedure and treatment not carried out because of patient's decision for unspecified reasons Procedure and treatment not carried out because of patient's decision for unspecified reasons Diagnosis [facility] C801 Malignant (primary) neoplasm, unspecifie d Malignant (primary) neoplasm, unspecified Diagnosis 11/23/2020 10:52:00 PM EDT [facility] 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 Diagnosis 11/23/2020 10:52:00 PM ED T [facility] K8020 Calculus of gallbladder without cholecys titis without obstruction Calculus of gallbladder without cholecystitis without obstruction Diagnosis 11/23/2020 10:52:00 PM EDT [facility] R1013 Epigastric pain Epigastric pain Diagnosis 11/23/2020 10:5 2:00 PM EDT [facility] Surgeries/Procedures Procedure Description Date Indications Data Source(s) OFFICE OUTPATIENT NEW 45 MINUTES 11/23/2020 12:00:00 A M EDT [facility] ([facility]) OFFICE OUTPATIENT VISIT 15 MINUTES 10/01/2020 12:00:00 AM EDT [facility] ([facility] ) OFFICE OUTPATIENT VISIT 25 MINUTES 09/09/2020 12:00:00 AM EDT [facility] ([facility]) RADEX SPINE LUMBOSACRAL MINIMUM 4 VIEWS 08/25/2020 12: 00:00 AM EDT [facility] ([facility]) OFFICE OUTPATIENT NEW 45 MINUTES 08/25/2020 12:00:00 A M EDT [facility] ([facility]) Results ID Date Data Source [id number] 12/08/2020 02:00:00 AM EDT [facility] Name Value Range Interpretation Code Description Data Ellen rce(s) Supporting Document(s) SARS coronavirus 2 RNA [Presence] in Res piratory specimen by LARRY with probe detection NEGATIVE [facility] This lab was ordered by [facility] a nd reported by [facility]. ID Date Data Source [id number] 12/06/2020 08:49:24 AM EDT [facility] Name Value Range Interpretation Code Description Data Ellen rce(s) Supporting Document(s) Discharge Summary [facility] CDYOLz5jSfLMGwTk22/QNSpoQRIjd5MfNXrrSIn8KCysATWoG6QdAIF4qL1tZOP4TQdMVuDfHqLhVCSv [facility] [file] [id number]== ID Date Data Source [id number] 12/05/2020 02:39:26 AM EDT [facility] Name Value Range Interpretation Code Description Data Ellen rce(s) Supporting Document(s) Leukocytes [#/volume] in Blood by Automated count 3.9 10*3/uL 4-10 L [facility] Erythrocytes [#/volume] in Blood by Automated count 4.54 10*6/uL 4.6- 6.1 [facility] Hemoglobin [Mass/volume] in Blood 13.5 g/dL 13.5-18 [facility] Hematocrit [Volume Fraction] of Blood by Automated count 40.6 % 4 1-53 L [facility] Erythrocyte mean corpuscular volume [Entitic volume] by Auto mated count 89.4 fL 80-96 [facility] Erythrocyte mean corpuscular hemoglobin [Entitic mass] by Automated count 29.7 pg 27-33 [facility] Erythrocyte mean corpuscular hemoglobin concentration [Mass/volume] by Automated count 33.2 g/dL 32.0-36.0 [facility] Erythrocyte distribution width [Ratio] by Automated count 13.1 % 11.5-14.5 [facility] Platelets [#/volume] in Blood by Automated count 224 10*3/uL 150-400 [facility] Differential cell count method - Blood [facility] Neutrophils/100 leukocytes in Blood by Automated count 91 % [facility] Lymphocytes/100 leukocytes in Blood by Automated count 6 % [facility] Monocytes/100 leukocytes in Blood by Automated count 3 % [facility] Eosinophils/100 leukocytes in Blood by Automated count 0 % [facility] Basophils/100 leukocytes in Blood by Automated count 0 % [facility] Neutrophils [#/volume] in Blood by Automated count 3.58 10*3/uL 1.8-7 .0 [facility] Lymphocytes [#/volume] in Blood by Automated count 0.25 10*3/uL 1.2-4 .0 L [facility] Monocytes [#/volume] in Blood by Automated count 0.10 10*3/uL 0-0.8 [facility] Eosinophils [#/volume] in Blood by Automated count 0.00 10*3/uL 0-0.5 [facility] Basophils [#/volume] in Blood by Automated count 0.00 10*3/uL 0-0.2 [facility] Nucleated erythrocytes/100 leukocytes [Ratio] in Blood by Automated count 0 /100{WBCs} 0-0 [facility] ID Date Data Source [id number] 12/05/2020 02:59:25 AM EDT [facility] Name Value Range Interpretation Code Description Data Ellen rce(s) Supporting Document(s) Albumin [Mass/volume] in Serum or Plasma by Bromocresol green (BCG) dye binding method 4.5 g/dL 3.5-5.2 [facility] al Bilirubin.total [Mass/volume] in Serum or Plasma 1.3 mg/dL <1.2 H [facility] Calcium [Mass/volume] in Serum or Plasma 9.2 mg/dL 8.6-10.0 [facility] Chloride [Moles/volume] in Serum or Plasma 99 mmol/L 98-107 [facility] Creatinine [Mass/volume] in Serum or Plasma 0.73 mg/dL 0.70-1.20 [facility] Glucose [Mass/volume] in Serum or Plasma 107 mg/dL 70-140 [facility] Alkaline phosphatase [Enzymatic activity/volume] in Serum or Plasma 65 U/L 40-129 [facility] Potassium [Moles/volume] in Serum or Plasma 4.5 mmol/L 3.4-5.1 [facility] Hemolyzed Protein [Mass/volume] in Serum or Plasma 6.4 g/dL 6.4-8.3 [facility] Sodium [Moles/volume] in Serum or Plasma 133 mmol/L 136-145 L [facility] Aspartate aminotransferase [Enzymatic activity/volume] in Serum or Plasma 118 U/L <40 H [facility] Urea nitrogen [Mass/volume] in Serum or Plasma 15 mg/dL 6-20 [facility] Osmolality of Serum or Plasma by calculation 278 mosm/kg 275-300 [facility] Creatinine/Urea nitrogen [Mass Ratio] in Serum or Plasma 20 [facility] Bicarbonate [Moles/volume] in Serum 23 mmol/L 22-29 [facility] Alanine aminotransferase [Enzymatic activity/volume] in Seru m or Plasma 187 U/L <41 H [facility] Anion gap 3 in Serum or Plasma 12 mmol/L 8-15 [facility] Glomerular filtration rate/1.73 sq M pre dicted among non-blacks [Volume Rate/Area] in Serum or Plasma by Creatinine-based formula (MDRD) >6 0 [facility] Glomerular filtration rate/1.73 sq M pre dicted among blacks [Volume Rate/Area] in Serum or Plasma by Creatinine-based formula (MDRD) >60 [facility] ID Date Data Source [id number] 12/05[facility]2020 [facility]59[facility] Name Value Range Interpretation Code Description Data Ellen rce(s) Supporting Document(s) Magnesium [Mass/volume] in Serum or Plasma 2.5 mg/dL 1.6-2.6 [facility] ID Date Data Source [id number] 12/05/2020 02:59:25 AM [facility] Value Range Interpretation Code Description Data Ellen rce(s) Supporting Document(s) Phosphate [Mass/volume] in Serum or Plasma 3.3 mg/dL 2.5-4.5 [facility] ID Date Data Source [id number] 12/04/2020 12:44:36 AM EDT [facility] Name Value Range Interpretation Code Description Data Ellen rce(s) Supporting Document(s) Leukocytes [#/volume] in Blood by Automated count 7.2 10*3/uL 4-10 [facility] Erythrocytes [#/volume] in Blood by Automated count 4.35 10*6/uL 4.6- 6.1 L [facility] Hemoglobin [Mass/volume] in Blood 12.9 g/dL 13.5-18 L [facility] Hematocrit [Volume Fraction] of Blood by Automated count 39.0 % 4 1-53 L [facility] Erythrocyte mean corpuscular volume [Entitic volume] by Auto mated count 89.6 fL 80-96 [facility] Erythrocyte mean corpuscular hemoglobin [Entitic mass] by Automated count 29.6 pg 27-33 [facility] Erythrocyte mean corpuscular hemoglobin concentration [Mass/volume] by Automated count 33.0 g/dL 32.0-36.0 [facility] Erythrocyte distribution width [Ratio] by Automated count 13.2 % 11.5-14.5 [facility] Platelets [#/volume] in Blood by Automated count 265 10*3/uL 150-400 [facility] Differential cell count method - Blood [facility] Neutrophils/100 leukocytes in Blood by Automated count 88 % [facility] Lymphocytes/100 leukocytes in Blood by Automated count 5 % [facility] Monocytes/100 leukocytes in Blood by Automated count 7 % [facility] Eosinophils/100 leukocytes in Blood by Automated count 0 % [facility] Basophils/100 leukocytes in Blood by Automated count 0 % [facility] Neutrophils [#/volume] in Blood by Automated count 6.34 10*3/uL 1.8-7 .0 [facility] Lymphocytes [#/volume] in Blood by Automated count 0.36 10*3/uL 1.2-4 .0 L [facility] Monocytes [#/volume] in Blood by Automated count 0.51 10*3/uL 0-0.8 [facility] Eosinophils [#/volume] in Blood by Automated count 0.00 10*3/uL 0-0.5 [facility] Basophils [#/volume] in Blood by Automated count 0.00 10*3/uL 0-0.2 [facility] Nucleated erythrocytes/100 leukocytes [Ratio] in Blood by Automated count 0 /100{WBCs} 0-0 [facility] ID Date Data Source [id number] 12/04/2020 01:00:28 AM EDT [facility] Name Value Range Interpretation Code Description Data Ellen rce(s) Supporting Document(s) Albumin [Mass/volume] in Serum or Plasma by Bromocresol green (BCG) dye binding method 4.4 g/dL 3.5-5.2 [facility] Bilirubin.total [Mass/volume] in Serum or Plasma 1.1 mg/dL <1.2 [facility] Calcium [Mass/volume] in Serum or Plasma 8.7 mg/dL 8.6-10.0 [facility] Chloride [Moles/volume] in Serum or Plasma 99 mmol/L 98-107 [facility] Creatinine [Mass/volume] in Serum or Plasma 0.76 mg/dL 0.70-1.20 [facility] Glucose [Mass/volume] in Serum or Plasma 103 mg/dL 70-140 [facility] Alkaline phosphatase [Enzymatic activity/volume] in Serum or Plasma 63 U/L 40-129 [facility] Potassium [Moles/volume] in Serum or Plasma 4.3 mmol/L 3.4-5.1 [facility] Hemolyzed Protein [Mass/volume] in Serum or Plasma 6.2 g/dL 6.4-8.3 L [facility] Sodium [Moles/volume] in Serum or Plasma 136 mmol/L 136-145 [facility] Aspartate aminotransferase [Enzymatic activity/volume] in Serum or Plasma 195 U/L <40 H [facility] Urea nitrogen [Mass/volume] in Serum or Plasma 13 mg/dL 6-20 [facility] Osmolality of Serum or Plasma by calculation 282 mosm/kg 275-300 [facility] Creatinine/Urea nitrogen [Mass Ratio] in Serum or Plasma 17 [facility] Bicarbonate [Moles/volume] in Serum 24 mmol/L 22-29 [facility] Alanine aminotransferase [Enzymatic activity/volume] in Seru m or Plasma 164 U/L <41 H [facility] Anion gap 3 in Serum or Plasma 13 mmol/L 8-15 [facility] Glomerular filtration rate/1.73 sq M pre dicted among non-blacks [Volume Rate/Area] in Serum or Plasma by Creatinine-based formula (MDRD) >6 0 [facility] Glomerular filtration rate/1.73 sq M pre dicted among blacks [Volume Rate/Area] in Serum or Plasma by Creatinine-based formula (MDRD) >60 [facility] ID Date Data Source [id number] 12/04/2020 01:00:28 AM [facility] Name Value Range Interpretation Code Description Data Ellen rce(s) Supporting Document(s) Magnesium [Mass/volume] in Serum or Plasma 2.1 mg/dL 1.6-2.6 [facility] ID Date Data Source [id number] 12/04/2020 01:00:28 AM [facility] Value Range Interpretation Code Description Data Ellen rce(s) Supporting Document(s) Phosphate [Mass/volume] in Serum or Plasma 3.2 mg/dL 2.5-4.5 [facility] ID Date Data Source [id number] 12/03/2020 06:02:00 PM [facility] Value Range Interpretation Code Description Data Ellen rce(s) Supporting Document(s) Albumin [Mass/volume] in Serum or Plasma by Bromocresol green (BCG) dye binding method 4.3 g/dL 3.5-5.2 [facility] Bilirubin.total [Mass/volume] in Serum or Plasma 1.0 mg/dL <1.2 [facility] Calcium [Mass/volume] in Serum or Plasma 9.2 mg/dL 8.6-10.0 [facility] Chloride [Moles/volume] in Serum or Plasma 100 mmol/L 98-107 [facility] Creatinine [Mass/volume] in Serum or Plasma 0.70 mg/dL 0.70-1.20 [facility] Glucose [Mass/volume] in Serum or Plasma 87 mg/dL 70-140 [facility] Alkaline phosphatase [Enzymatic activity/volume] in Serum or Plasma 63 U/L 40-129 [facility] Potassium [Moles/volume] in Serum or Plasma 4.2 mmol/L 3.4-5.1 [facility] Protein [Mass/volume] in Serum or Plasma 6.1 g/dL 6.4-8.3 L [facility] Sodium [Moles/volume] in Serum or Plasma 137 mmol/L 136-145 [facility] Aspartate aminotransferase [Enzymatic activity/volume] in Serum or Plasma 57 U/L <40 H [facility] Urea nitrogen [Mass/volume] in Serum or Plasma 10 mg/dL 6-20 [facility] Osmolality of Serum or Plasma by calculation 283 mosm/kg 275-300 [facility] Creatinine/Urea nitrogen [Mass Ratio] in Serum or Plasma 14 [facility] Bicarbonate [Moles/volume] in Serum 23 mmol/L 22-29 [facility] Alanine aminotransferase [Enzymatic activity/volume] in Seru m or Plasma 35 U/L <41 [facility] Anion gap 3 in Serum or Plasma 14 mmol/L 8-15 [facility] Glomerular filtration rate/1.73 sq M pre dicted among non-blacks [Volume Rate/Area] in Serum or Plasma by Creatinine-based formula (MDRD) >6 0 [facility] Glomerular filtration rate/1.73 sq M pre dicted among blacks [Volume Rate/Area] in Serum or Plasma by Creatinine-based formula (MDRD) >60 [facility] ID Date Data Source [id number] 12/03/2020 12:26:22 PM EDT [facility] Name Value Range Interpretation Code Description Data Ellen rce(s) Supporting Document(s) ED Provider Note [facility] NETZAs1iLaFSTlXf39/FMLqgYOKus7MvYQiiFJf7WAtgGLPfR9VqUFV7iU9bTAR6QZeKVpHrOjUlVJE7 lbm [file] dBFw2nTDDm1K4U73Oe9FD+midwife practitioner/a31UBUQv2BHavqMCsaqV1ENs71zwXBcWVvTNcwYbXgrLThzUiTQJoX [file] GZTwFHJeXPFjXHZUXRazNB7YIP0wjoT6HF1UsKMkSNFxWAJmqPXdUXu7R01pxEHaTKgqHU1USAK+Claudia+ Wy6YPROtSTCcNLYhYjPbOMVLXnYiW7QkD9NDp4YbH3MhAT98dHnczwVvBLhsWD2WSU4xIVLmYSNIJI4M dXEjvR3sqoU1DYHcBJVSNuErE08buLYgAOXfFTI4UK BzYe8ZJRHbD5RybmWztUwanxKnOAUlXTAATX9AYHcuufRliELusUkrLT22aVqiRP2TBi6PMnMcBO9nfo 2BmGXhEk3IJMY5OM4ZASQmGYCkFKAzUVN2NPQeZxUcDObcIMVhEIYnGGT5LSWhPMNzDQ8GIfWzXPJjXY YaGhteFONcKKSdhe7EZYCxAYH8CKx1BSRiTFZgOPFw MHemGYIaSOAqIDM1CKEePJExIT3IGqUsOKZzQJGkQpQrWMVzUMLqry1NRWLnIWGfEeE2OVKpFVRtWDXq YDbqRKZpABH6JhKsDPTfRIJjWH1IUtEaARDcOZX2RFltBMNfTMAezm8UMWMhHVXzYHf7MGXkUTQkZUKj BUfgANZoYJZ6QNX1ALJaTYQjBJ5DHxGrCLXeOQHgRA rzZSTwRHIbdv8PLSWdNCEvPxLiMIEdFBNcGSWzYVnrBWXrJKD3VWM8WDJeRQWfXR3QMfHuTSZpVWQgSW BnFFZkZPYgqj6JAMZbRAGdZqO3BLUqMCOqVQLpRObeONGuNUV4PYcgUGUmISEpSF2PGqNlFGQzTsN9Cy LoBGHqFOWlck1PQNZgZIXzLLA5HvVkHNDwVDRbGXxu QISwEQL0VFNqIIJbRAWfIS7JOjIoTHRdAaBpIFCcQWOwQKRlqv6LPNVbBUTpQxj5XoZgTEKnSUOpGLyq NRFxRRZ6VOQ2ETIaXMMcVJ6NXaUoCGBxAgc6DTAeIXSuSQNbwm8LOGQvBIJvCGm3KEDxBUHrLLTwNUlh QIYxYWEvYLo0ILRuSFHzVV6MRbBuUGBwXyDuOCMrQI KjCDPiwy3HYJAaULMjJrV1LFJhBVJwIJZhXTupNIZgBIHzFcOdOFBvHFDxCD5DEsSiWAVjRtK3BgQsCV MtBLQpaw6CHBNkEQHaFsI0XlYyXAOuEAGhOEsoQSFzGYBiEOh4RNWgSFXjQP8JXfYuQJZsMxD1OVWvUA MqOUQqln5MUFKhJNTkSFy4BtKrEVWlPQHlJKopSTFl LFY6NKKkKGEuYZJvND1OTmGtJROiAjHhAkFzEBMdEQZpye4LVWReWCX9QxX0IrDeAOAuDSEwDFcfBFCs ZRU6XOx7PDNwSENiKX7ZOqGaRCBpNKflPEnhVWYnJOXjjn1YCJAjGKQ8XjZoGtRuLIWaSPOjMXcaFSDa KJT5BAjxULUaBFVyRS7GPqLyYPZuOOo0RnhkZYLeTS Xrza0UNWLnKSI7MXAiQJFqQECaGXPkVQvaSZQxPZI4SrfyAUEoOFGyYF7PVuWlAUWfPQa4UzMaOXEfGX Pwwk9GWGTzQDO0HThnFqHhSVJtTQPgHSosRXRxSZLzAJS9VQWcWINqNQ2URfEfTQVrVSG8OCWdYVLpSR Tldy8DPRLtBYY5QrV0LSDhFMIlMRAmGPvkTTGfQEWd ZZUrPVBmKAKpWU7GMtGgZNGzYAOsXOAhMYNkJFRdeu2UGBRjNTQ6EjZ5IOUrYUWlJRUcVOngVMNkPWQl Bqp3LLDiGYGjIE4AGqXuRFCoMDZ0BGHnSQNxZWDtms7KGDApLOG8SjXoBTDqNJBjEKHxVJtyHJWaOEZt TpYvJIHySRBzOC4UJmWqACIvHSCmVVXtNHWhLVQjet 4JWZSkSCK8UtG0CjMcFPRwXQQpTWidRRAzDKFzTpI7UWOlCPOzZN6CXgAcIEUpVWH4CAEbYOQeEERzhg 6XjHLfzKhlqf3QWOvUPa5JmZywLZQxAWtvOc9chTO8BMEoBTGWLq4UvcViYTAoZZJGSAxrSGEeBVC0LC H0IEybRdNiGprwKuOiTLsyEikeFNZ2CLE0KqSdLnD9 TwPfDWznWVY9VmE9JOMjZuQfJzVpLTTpTLasBOzfLRG+MK5vNPi+Fx4Oo3MttjI2ngVpQCi6DMD2Dr1E ZWNTB7VERt== ID Date Data Source [id number] 12/03/2020 12:10:15 PM EDT [facility] Name Value Range Interpretation Code Description Data Ellen rce(s) Supporting Document(s) ED Provider Note [facility] RVCSSj7mJdZVFfVl25/VUHljZVLxh3NyVCgfWJe9IYqyMEXwD4PiPQV8xP0fADO3HFlOJmUkEzZoYUZ9 lbm [file] KrCYjwDX6IHDF+Claudia+Gl9YTRQtNTLtJILwEpIgHMRM TsTjD7NsF2NTx7FaO2GjZJ27tCvfttLwAWwgDP1PID0hNQIbBRBRNF6HuDArsS7voiG3SfPaFSFTFtJi X58pwPDiEKBrPPZrPMVxXd9HZXYlE3SsqzOqnXuhtcNwDIXbHNZHDK5TWJfvhvRaiWPvdJabKX16oMhd NA4SRr5HYrKcRQ3pvu9EbGGxVn9GTWC7EY0JXHCoMO GvMOMdBEO2FDCfJvRuSIrnNZNuKLYaTGP3IUIaJJEdUM0OVdWlPXXnFnG1KkVwWTImGFKhrv7QXZExEF F2BcP9AvTdTFIbVEAyNFjxHSFlUHPxPRX6XURcMDRnKB0AMsRkXTPkHHS5LpKtCIVjVOHjnr7LJBUuGO TtSth9KFLlDNSgINNpHAxyRQGoCNG7CIk4LAStXHVu KH6IPjAzBLNfYUW0FMOpOWAxIINovi9RBXFmYEByPTQ6KKKmZCCuCPKiPJafSXToMPT2GeNdJVYnRNZo NB4MUdCeNGKsKZBkRSljDOTgEXFrpg0FDVZhJGZqKiA7MKXdHMCjFYFdGFmwEXRtKGB8QVK6ERBfNPXh HU7XDaDsRHTqXRU5LGSrTGTvRTXvle4QZRIvJUFwXE j9YcOjWEIzETEyZFtcGXUtLLMbBFbwTOXbHKGmUU1SGaApPQPbQeD4AJHcETRjITOmha8AGVXiDHIvYn B6HVNaYCAyRMOdBAafSZJeSVT4KwD9XLVwSCZqRI7KWfYbIBUoLdJ8RYTfRJFmQGTvhb4FGTZmWZXbLN AaGhKnIBVmTXGzAJbuAEMhZXJ8VKZvEQOmBNItUE2S RyJxROQlEpI8LXOcBZQjCJGewi7JNWKuAXVhAxd2ZjCjFVDcMMMbNYhbFNXdKRB2Fal1JERiCDJlXO9F YkNdHCYrBbN2PVJiAXIlYIRgev9TRBFwBSTcYLS1HYLzIOLpRZUdNOrjRMEoZZN8Azi9RZGoCMAiIV3U AdQxWZEuOUSgOsAsFKGaDRKqji3FUIUkNGQ8NpS4QI OqKBDqTCAhWTueBGSmPSZ6BYLlFHPqSOWcPA5HTpHxVDKyGPW5EPWxZRJrAZHrvb4ZJRRcIYJ8FonaTy YbGTEtTKMjWXxbCSTfPLG0PRJxWCBeYXCbHP7NPrUmDPFoSQs4EVJzWPVdTLQwnx5WGHCvMLM9ZMV4GM PwTRSeZYLgNYsyVVZfPSM0CzPfWJWbCQQjAA1FIuVg FRLmYFVdGwYeDDApRELaft7ROPDgDND4NWFvVrByBUBrTIUnSXzxBQClKMTnBoUbOJCuNNYnPP6PKmIm CAUdWfSbDBEoLMHfDRRnrb6XLLNnPIV8HfVwYHIpTPLsSWLlWKypDPGuUSWgOmMpSCAfREFeFK2XEiGc GZZiArK2XdSsGLPnJUMzwy1WRBSbTSY0IyZyXIRuRS PgDRBbYCmuCJUoDVYqLWEpIDHlZZXyKU5DZhSvVWAoWoZbYJBySAOiMXHtft1DIABfROV0UJMyPHCzAH DnVLIwXLxqAXMyYKR1HrEaAOSyYYSrZU0JRoBdSBStWtK6BXCdXMTuKIHpsh8BKHZpJFI9CCFiZLKlAX YjFKHpELlqAHLqKAI7RUW4MXYsIXKqHT9GSqRhBAKx Exv4FVGaOQLnSCRyca0ACDNsHQH7XxA4JwBiVEAkMZHsBGruUAJtGIN1QWT7NJUzFZDlTS2NCtMbLDQs Fvl2AavdMZMxUFYjqk0HCJJbQOY0HRV3MkSzYHDaJWYhJDrcQIHkNHX3UwDpRPHsPKQiOA9CBsEyXSPz Lum0UZqfNRPvFQZrae1TEUNzCMN3PAX7ZvLeVQJeXL MeJWw2kbIlrNCyMLn8VN6EF2GpmqQtOoGSDl6Qe734HCWfRGUfVg6OE0brZx2wKFTlMBIGBj9FYEp3AO MrMaC5IAXrMGyaZ7GvKEyxLFevGhRmPRA0INI7TQX+NGy9ZeIsFFZ2UEQcZ7L4WxJ9Y1S7I0N4GPWbYb RdYWn5Xj8pMPUOUf2+UNencWRzrDymVSDAFoC0YRR2DFdxOFQFCu9F ID Date Data Source [id number] 12/03/2020 01:05:43 AM [facility] Name Value Range Interpretation Code Description Data Ellen rce(s) Supporting Document(s) Bicarbonate [Moles/volume] in Serum 24 mmol/L 22-29 [facility] Chloride [Moles/volume] in Serum or Plasma 101 mmol/L 98-107 [facility] Creatinine [Mass/volume] in Serum or Plasma 0.62 mg/dL 0.70-1.20 L [facility] Glucose [Mass/volume] in Serum or Plasma 120 mg/dL 70-140 [facility] Potassium [Moles/volume] in Serum or Plasma 4.2 mmol/L 3.4-5.1 [facility] Sodium [Moles/volume] in Serum or Plasma 134 mmol/L 136-145 L [facility] Urea nitrogen [Mass/volume] in Serum or Plasma 5 mg/dL 6-20 L [facility] Anion gap 3 in Serum or Plasma 8 mmol/L 8-15 [facility] Osmolality of Serum or Plasma by calculation 276 mosm/kg 275-300 [facility] Creatinine/Urea nitrogen [Mass Ratio] in Serum or Plasma 8 [facility] Calcium [Mass/volume] in Serum or Plasma 9.1 mg/dL 8.6-10.0 [facility] Glomerular filtration rate/1.73 sq M pre dicted among non-blacks [Volume Rate/Area] in Serum or Plasma by Creatinine-based formula (MDRD) >6 0 [facility] Glomerular filtration rate/1.73 sq M pre dicted among blacks [Volume Rate/Area] in Serum or Plasma by Creatinine-based formula (MDRD) >60 [facility] ID Date Data Source [id number] 12/03/2020 01:05:43 AM [facility] Name Value Range Interpretation Code Description Data Ellen rce(s) Supporting Document(s) Magnesium [Mass/volume] in Serum or Plasma 1.9 mg/dL 1.6-2.6 [facility] ID Date Data Source [id number] 12/03/2020 01:05:43 AM [facility] Name Value Range Interpretation Code Description Data Ellen rce(s) Supporting Document(s) Phosphate [Mass/volume] in Serum or Plasma 3.1 mg/dL 2.5-4.5 [facility] ID Date Data Source [id number] 12/03/2020 02:05:08 AM [facility] Name Value Range Interpretation Code Description Data Ellen rce(s) Supporting Document(s) Leukocytes [#/volume] in Blood by Automated count 2.1 10*3/uL 4-10 L [facility] Erythrocytes [#/volume] in Blood by Automated count 4.35 10*6/uL 4.6- 6.1 [facility] [facility] [Mass/volume] in Blood 12.8 g/dL 13.5-18 L [facility] Hematocrit [Volume Fraction] of Blood by Automated count 38.8 % 4 1-53 [facility] Erythrocyte mean corpuscular volume [Entitic volume] by Auto mated count 89.1 fL 80-96 [facility] Erythrocyte mean corpuscular hemoglobin [Entitic mass] by Automated count 29.4 pg 27-33 [facility] Erythrocyte mean corpuscular hemoglobin concentration [Mass/volume] by Automated count 33.0 g/dL 32.0-36.0 [facility] distribution width [Ratio] by Automated count 13.2 % 11.5-14.5 [facility] Platelets [#/volume] in Blood by Automated count 199 10*3/uL 150-400 [facility] Differential cell count method - Blood [facility] Neutrophils/100 leukocytes in Blood by Automated count 90 % [facility] Lymphocytes/100 leukocytes in Blood by Automated count 7 % [facility] Monocytes/100 leukocytes in Blood by Automated count 3 % [facility] Neutrophils [#/volume] in Blood by Automated count 1.89 10*3/uL 1.8-7 .0 [facility] Lymphocytes [#/volume] in Blood by Automated count 0.15 10*3/uL 1.2-4 .0 [facility] Monocytes [#/volume] in Blood by Automated count 0.06 10*3/uL 0-0.8 [facility] ID Date Data Source [id number] 12/02/2020 05:33:53 PM EDT [facility] US RENAL OR AORTA COMPLETE [id number] RE SULTInterpreted by:Chen Preciado, CARRIELINICAL HISTORY: Left sided flank pain and pain in the kidneys with urination.TECHNIQUE: Multiplanar 2-D real-time sonographic images of the kidneys and bladder were obtained.COMPARISON: CT abdomen and pelvis dated 11/29/2020.FINDINGS: RIGHT KIDNEY: The right kidney measures 11.3 x 4.7 x 4.8 cm (volume 133 mL), the parenchyma measures 1.4 cm. The right kidney is normal in size and contour and the parenchymal echogenicity is normal. There is no evidence of hydronephrosis, renal calculus, solid lesion or perinephric fluid.LEFT KIDNEY: The left kidney measures 12.3 x 4.4 x 4.9 cm (volume 139 ml), the parenchyma measures 1.4 cm. The left kidney is normal in size and contour and the parenchymal echogenicity is normal. There is no evidence of hydronephrosis, renal calculus, solid lesion or perinephric fluid.BLADDER: The bladder is partially distended, measuring 4.5 x 7.3 x 5.1 cm (volume 86 mL). Both ureteral jets are detected. The visualized bladder is grossly normal.PROSTATE: The prostate measures 3.7 cm in length with a volume of 28.3 mL.OTHER: A small amount of free fluid surrounds the liver. Incidentally noted are echogenic foci within the gallbladder.IMPRESSION:1. There is no evidence of renal calculus or renal obstruction. Normal sonographic appearance of the kidneys.2. Small amount of ascites is noted.3. Incidental note is made of cholelithiasis.This document has been electronically signed by Josep Blanco MD on 12/02/2020 5:31 PM Name Value Range Interpretation Code Description Data Ellen rce(s) Supporting Document(s) ID Date Data Source [id number] 12/02/2020 12:20:43 PM EDT [facility] Name Value Range Interpretation Code Description Data Ellen rce(s) Supporting Document(s) ED Provider Note [facility] LEKSZi9bBfTFOqQk90/ZTNfdYHSyk1NxUJcrRIw5YDcjPMJiT1TbNSL0lG7oZYI3UPaYYsNuEnOoYJY0 lbm [file] yILwHPnrYK2DJOA+Claudia+Pw5NDTTrLHAqJIQvCrIdHU BCYfPnG6BqX0OZe7ZgL9OfVI22pDqrqxSeMKpvXR6HUV6eQSUkLZESKY9FdEHvmC0qncB6BUQfMRSNWy ZaG45xcQHcSXDiKZWtVRXoNc4VWISeH0NmjkByzSywqgYoGEGsROLJEU7UWWhhhpYdkLUcuYedLJ21yN owVL0XZk5KGlTyEX6ulb6DxAPkVn0SXYQ6Hk0QZDIg WDEbAOMrXOF6QQLzIqYpTTvwTQSvNRWaOQJ3TDRhOTQbCT0MQaUoMMZwDKW5QrBaHIWrLNFfxr0SYKFi QBZ5ObG4VKCgDTDgSVGgTXpqBWToFWXgJHV8DGZyRNCaVW8KHxDpFBSbNAH5IeorPJOyKCDikv4LLZIc LLXhYpNkNUYeLKJjMDDlOYrbBWOaPZI0ZCcsLFTfVU RvWU2NEtDrRETsMParTlRbAKOiKOJecp8AQURfYBLeBLH3NQLtRQBlMJIiJLmsBBAzKRNjKHnlEBFoGO SkQD4OEzKxJHEiRAH5KAxcWPSiXFFnvd2SOPDyAHJbKyS9XVLfMHXtLXXwCWahRGOuYCX9Cwi2TJPqNO NgUX4OBuGiTETfBVZ9CQCjGAMhQOVmol6DZDSgJXLz INGbUUCtYQYfGJSwJHagAVRkQGU6MDNzFZRzZQQnJW6HNeJjDFIaUeC7VBGsTSYzDVYrjh2FVUYvHITs EKi6PjMjRBEdYWDvXOrxZIPcLBU0WNklHSYhVYYpLY5GPwThPPMwWlK4OOmbSCRgDSLfam2EZLBkXHGj ShA8RbAbGUXnANFaDKfwTOJsBGC9MNs3NDCvPNHlGH 7SYaRsOASkYku5JYxgCNMsETByju7WZVDrMXQhXyO2QyKpSSBvNHWuNXzzRFMcVTI1IQS3RIZuBIXjLA 6OZaFgKJZlIik9GTksWNRjPVBffa5AAZQpJJFcLAg4PHHzVYFnPYTkQKpcNYUhWBR4XWv1GBKxROJmBZ 6PUwXgGQUcZkNlCvkwJBYkLIIvml0FEAOsAUXaVWDu TYEzQKSnNCZaFFfkDBEoXBHvLVF4ZDPvTFGoHU5YBsEiSSHqAOZ3YTthSZOwNDQjug9JSGArPZE1AkD3 PbQiTXErQNXfDLaiRQTsHHCnJFrcMLRcUYKrOS8IIoGxSECjJII4AcEuZMCtZCIafy9DGUQoKBC0Emk6 VGFjLMWuKWClVGzjIVLnCDMxTWGdRIXnRPFbVT2OHr JfBZVpMMJtSHSqMRGsVMYgya9WZHVvBMS1BAP9TWMjBHZdLYJmBYlhPSVrDQF6MZMlRXCzPMSsHD1HZz SaLLKkNFKfDwUgOSRdBYRtbw2WXZXzRQH5HJRyPUJfDAFpQSOrTYewNCSsYOI4CIQ5BMVkJTWzJA1NTg XyBLThVVp4BEDpDXUoIKTkow1KUDFyTUE6ZkAsPtOo OMOfLUAaYHdpUQMaCWS0EgTeMSJeYWUkMY7EEzPyGQQzRWw7FpQqMKUyQFJmqh5KLHImYUF7BGNeLtNq CNNaNKAgPMnyMXPrUQI8DtO7URQcDBTmQJ2GTmHcYECdMUjuMABrSAXtLNAxau9JYJNdAHQ9KUD7ODQw XPSzYRNrCZlnUMBdNPT4KjPfKHXoYKHfKY7LQqQxHS UgNTu3CRDbYGWwZWDvlx6MMPZkZHZ8CDT6QiVpBIMbXKEfCIzkRVBxORO8WbZ5CSZgSCYlTM3EYfTsFU BnDWf1BoCwPBKeIFCxdj5WbJQkkXyyvs7XZIoNKk3ZfZixEIH4NUssUw6ufWJ3GpElAGUWCa7LfeYdTH YwOMVAIVubORWvRUH4PjDcXqO2PNrhLOI0VPVaYxM1 XZC9XgTrKrkcXfJtFkP4DNyiMmGiCZkxIDRwMKD7SiHyIsqgBcStLDBvGSR2KTC+CI9fVNz+Ia3Gy4Rh ysB4iyZaXFr0HQO1Ka4LVPFBP9FKUn== ID Date Data Source [id number] 12/02/2020 12:01:37 PM EDT [facility] Name Value Range Interpretation Code Description Data Ellen e(s) Supporting Document(s) Color of Urine [facility] Clarity of Urine [facility] Specific gravity of Urine by Refractometry automated 1.010 1.003 -1.030 [facility] pH of Urine by Automated test strip 5.0 5.0-8.0 [facility] Protein [Mass/volume] in Urine by Automated test strip Neg [facility] Glucose [Mass/volume] in Urine by Automated test strip Neg [facility] Ketones [Mass/volume] in Urine by Automated test strip 20 mg/dL Neg [facility] Bilirubin.total [Presence] in Urine by Automated test strip Negative [facility] Hemoglobin [Presence] in Urine by Automated test strip Neg [facility] Leukocyte esterase [Presence] in Urine by Automated test strip Negative [facility] Nitrite [Presence] in Urine by Automated test strip Negati ve [facility] Leukocytes [#/area] in Urine sediment by Automated count 0 /HPF 0 -5 [facility] Erythrocytes [#/area] in Urine sediment by Automated count 0 /HPF 0-3 [facility] Service comment [facility] ID Date Data Source [id number] 12/02/2020 11:49:36 AM EDT [facility] Name Value Range Interpretation Code Description Data Ellen rce(s) Supporting Document(s) Leukocytes [#/volume] in Blood by Automated count 5.4 10*3/uL 4-10 [facility] Erythrocytes [#/volume] in Blood by Automated count 4.26 10*6/uL 4.6- 6.1 L [facility] Hemoglobin [Mass/volume] in Blood 12.7 g/dL 13.5-18 L [facility] Hematocrit [Volume Fraction] of Blood by Automated count 38.1 % 4 1-53 L [facility] Erythrocyte mean corpuscular volume [Entitic volume] by Auto mated count 89.4 fL 80-96 [facility] Erythrocyte mean corpuscular hemoglobin [Entitic mass] by Automated count 29.8 pg 27-33 [facility] Erythrocyte mean corpuscular hemoglobin concentration [Mass/volume] by Automated count 33.4 g/dL 32.0-36.0 [facility] Erythrocyte distribution width [Ratio] by Automated count 12.9 % 11.5-14.5 [facility] Platelets [#/volume] in Blood by Automated count 213 10*3/uL 150-400 [facility] Differential cell count method - Blood [facility] Neutrophils/100 leukocytes in Blood by Automated count 75 % [facility] Lymphocytes/100 leukocytes in Blood by Automated count 13 % [facility] Monocytes/100 leukocytes in Blood by Automated count 9 % [facility] Eosinophils/100 leukocytes in Blood by Automated count 3 % [facility] Basophils/100 leukocytes in Blood by Automated count 0 % [facility] Neutrophils [#/volume] in Blood by Automated count 4.06 10*3/uL 1.8-7 .0 [facility] Lymphocytes [#/volume] in Blood by Automated count 0.69 10*3/uL 1.2-4 .0 L [facility] Monocytes [#/volume] in Blood by Automated count 0.48 10*3/uL 0-0.8 [facility] Eosinophils [#/volume] in Blood by Automated count 0.17 10*3/uL 0-0.5 [facility] Basophils [#/volume] in Blood by Automated count 0.02 10*3/uL 0-0.2 [facility] Nucleated erythrocytes/100 leukocytes [Ratio] in Blood by Automated count 0 /100{WBCs} 0-0 [facility] ID Date Data Source [id number] 12/02/2020 12:11:19 PM EDT [facility] Name Value Range Interpretation Code Description Data Ellen rce(s) Supporting Document(s) Albumin [Mass/volume] in Serum or Plasma by Bromocresol green (BCG) dye binding method 3.9 g/dL 3.5-5.2 [facility] Bilirubin.total [Mass/volume] in Serum or Plasma 1.1 mg/dL <1.2 [facility] Calcium [Mass/volume] in Serum or Plasma 8.6 mg/dL 8.6-10.0 [facility] Chloride [Moles/volume] in Serum or Plasma 104 mmol/L 98-107 [facility] Creatinine [Mass/volume] in Serum or Plasma 0.70 mg/dL 0.70-1.20 [facility] Glucose [Mass/volume] in Serum or Plasma 112 mg/dL 70-140 [facility] Alkaline phosphatase [Enzymatic activity/volume] in Serum or Plasma 64 U/L 40-129 [facility] Potassium [Moles/volume] in Serum or Plasma 3.9 mmol/L 3.4-5.1 [facility] Protein [Mass/volume] in Serum or Plasma 6.0 g/dL 6.4-8.3 L [facility] Sodium [Moles/volume] in Serum or Plasma 137 mmol/L 136-145 [facility] Aspartate aminotransferase [Enzymatic activity/volume] in Serum or Plasma 11 U/L <40 [facility] Urea nitrogen [Mass/volume] in Serum or Plasma 4 mg/dL 6-20 L [facility] Osmolality of Serum or Plasma by calculation 282 mosm/kg 275-300 [facility] Creatinine/Urea nitrogen [Mass Ratio] in Serum or Plasma 6 [facility] Bicarbonate [Moles/volume] in Serum 25 mmol/L 22-29 [facility] Alanine aminotransferase [Enzymatic activity/volume] in Seru m or Plasma 7 U/L <41 [facility] Anion gap 3 in Serum or Plasma 8 mmol/L 8-15 [facility] Glomerular filtration rate/1.73 sq M pre dicted among non-blacks [Volume Rate/Area] in Serum or Plasma by Creatinine-based formula (MDRD) >6 0 [facility] Glomerular filtration rate/1.73 sq M pre dicted among blacks [Volume Rate/Area] in Serum or Plasma by Creatinine-based formula (MDRD) >60 [facility] ID Date Data Source [id number] 12/02/2020 02:02:07 PM [facility] Name Value Range Interpretation Code Description Data Ellen rce(s) Supporting Document(s) Cancer Ag 19-9 [Units/volume] in Serum or Plasma 121 U/mL <35 H [facility] ConfirmedThis test uses [place] CA 19-9 el ectrochemiluminescent immunoassay. Results obtained with different test methods or kits cannot be used interchangeably. CA 19-9 is useful in monitoring pancreatic, hepatobiliary, gastric, hepatocelllular, and colorectal cancer. CA 19-9 value regardless of level, should not be interpreted as absolute evidence of the presence or absence of malignant disease. ID Date Data Source [id number] 12/02/2020 04:09:24 AM [facility] Value Range Interpretation Code Description Data Ellen rce(s) Supporting Document(s) Phosphate [Mass/volume] in Serum or Plasma 2.3 mg/dL 2.5-4.5 [facility] ID Date Data Source [id number] 12/02/2020 04:48:02 AM [facility] Value Range Interpretation Code Description Data Ellen rce(s) Supporting Document(s) Leukocytes [#/volume] in Blood by Automated count 5.2 10*3/uL 4-10 [facility] Erythrocytes [#/volume] in Blood by Automated count 4.27 10*6/uL 4.6- 6.1 L [facility] Hemoglobin [Mass/volume] in Blood 12.5 g/dL 13.5-18 L [facility] Hematocrit [Volume Fraction] of Blood by Automated count 38.1 % 4 1-53 L [facility] Erythrocyte mean corpuscular volume [Entitic volume] by Auto mated count 89.1 fL 80-96 [facility] Erythrocyte mean corpuscular hemoglobin [Entitic mass] by Automated count 29.3 pg 27-33 [facility] Erythrocyte mean corpuscular hemoglobin concentration [Mass/volume] by Automated count 32.9 g/dL 32.0-36.0 [facility] Erythrocyte distribution width [Ratio] by Automated count 12.8 % 11.5-14.5 [facility] Platelets [#/volume] in Blood by Automated count 201 10*3/uL 150-400 [facility] Differential cell count method - Blood [facility] Neutrophils/100 leukocytes in Blood by Automated count 67 % [facility] Lymphocytes/100 leukocytes in Blood by Automated count 20 % [facility] Monocytes/100 leukocytes in Blood by Automated count 8 % [facility] Eosinophils/100 leukocytes in Blood by Automated count 5 % [facility] Basophils/100 leukocytes in Blood by Automated count 0 % [facility] Neutrophils [#/volume] in Blood by Automated count 3.45 10*3/uL 1.8-7 .0 [facility] Lymphocytes [#/volume] in Blood by Automated count 1.06 10*3/uL 1.2-4 .0 L [facility] Monocytes [#/volume] in Blood by Automated count 0.43 10*3/uL 0-0.8 [facility] Eosinophils [#/volume] in Blood by Automated count 0.25 10*3/uL 0-0.5 [facility] Basophils [#/volume] in Blood by Automated count 0.01 10*3/uL 0-0.2 [facility] Nucleated erythrocytes/100 leukocytes [Ratio] in Blood by Automated count 0 /100{WBCs} 0-0 [facility] ID Date Data Source [id number] 12/02/2020 04:55:04 AM EDT [facility] Name Value Range Interpretation Code Description Data Ellen rce(s) Supporting Document(s) Bicarbonate [Moles/volume] in Serum 21 mmol/L 22-29 L [facility] Chloride [Moles/volume] in Serum or Plasma 100 mmol/L 98-107 [facility] Creatinine [Mass/volume] in Serum or Plasma 0.66 mg/dL 0.70-1.20 L [facility] Glucose [Mass/volume] in Serum or Plasma 87 mg/dL 70-140 [facility] Potassium [Moles/volume] in Serum or Plasma 3.7 mmol/L 3.4-5.1 [facility] Hemolyzed Sodium [Moles/volume] in Serum or Plasma 134 mmol/L 136-145 L [facility] Urea nitrogen [Mass/volume] in Serum or Plasma 6 mg/dL 6-20 [facility] Anion gap 3 in Serum or Plasma 12 mmol/L 8-15 [facility] Osmolality of Serum or Plasma by calculation 275 mosm/kg 275-300 [facility] Creatinine/Urea nitrogen [Mass Ratio] in Serum or Plasma 9 [facility] Calcium [Mass/volume] in Serum or Plasma 8.4 mg/dL 8.6-10.0 L [facility] Glomerular filtration rate/1.73 sq M pre dicted among non-blacks [Volume Rate/Area] in Serum or Plasma by Creatinine-based formula (MDRD) >6 0 [facility] Glomerular filtration rate/1.73 sq M pre dicted among blacks [Volume Rate/Area] in Serum or Plasma by Creatinine-based formula (MDRD) >60 [facility] ID Date Data Source [id number] 12/01/2020 09:28:00 [place] [address] RESPIRATORY CARE REPORT ==== ---------NAME------- NUMBER SEX AGE ADMIT DISC. XRAY# F/C TYPEREID SHERRIE Gaviria [id number] M 35 11/23/20 11/24/20 [id number] E/R DATE OF : 1985 M/R# [id number] #: [id number] VT-20 LOCATION: EMERGENCY DEPT EKG [id number] COMPLE TE:11/24/20 01:49 AJP [id number] PHYSICIAN: LEXUS VÁSQUEZ Name Value Range Interpretation Code Description Data Ellen rce(s) Supporting Document(s) ID Date Data Source [id number] 12/01/2020 04:59:09 PM EDT [facility] Name Value Range Interpretation Code Description Data Ellen rce(s) Supporting Document(s) Consultation [facility] LWVPHg8aFqUMXcQw84/MAWstTUAfh4BwUMqqXAa9VDioBMSnU8HyWBW5dH6dIBU9TWiFXmXqWjHwNTL5 lbm [file] GYN [file] AgICAgICAgICAgICAgICAgICAgICAgICAgICAgICAgICAgICAgICAgICAgICAgDQogICAgICAgICAgIC AgICAgICAgICAgICAgICAgICAgICAgICAgICAgICAg ICAgICAgICAgICAgICAgICAgICAgICAgICAgICAgICAgICAgICAgICAgICAgICAgICAgICAgICAgDQog ICAgICAgICAgICAgICAgICAgICAgICAgICAgICAgICAgICAgICAgICAgICAgICAgICAgICAgICAgICAg ICAgICAgICAgICAgICAgICAgICAgICAgICAgICAgIC AgICAgICAgDQogICAgICAgICAgICAgICAgICAgICAgICAgICAgICAgICAgICAgICAgICAgICAgICAgIC AgICAgICAgICAgICAgICAgICAgICAgICAgICAgICAgICAgICAgICAgICAgICAgICAgDQogICAgICAgIC AgICAgICAgICAgICAgICAgICAgICAgICAgICAgICAg ICAgICAgICAgICAgICAgICAgICAgICAgICAgICAgICAgICAgICAgICAgICAgICAgICAgICAgICAgICAg DQogICAgICAgICAgICAgICAgICAgICAgICAgICAgICAgICAgICAgICAgICAgICAgICAgICAgICAgICAg ICAgICAgICAgICAgICAgICAgICAgICAgICAgICAgIC AgICAgICAgICAgDQogICAgICAgICAgICAgICAgICAgICAgICAgICAgICAgICAgICAgICAgICAgICAgIC AgICAgICAgICAgICAgICAgICAgICAgICAgICAgICAgICAgICAgICAgICAgICAgICAgICAgDQogICAgIC AgICAgICAgICAgICAgICAgICAgICAgICAgICAgICAg ICAgICAgICAgICAgICAgICAgICAgICAgICAgICAgICAgICAgICAgICAgICAgICAgICAgICAgICAgICAg ICAgDQogICAgICAgICAgICAgICAgICAgICAgICAgICAgICAgICAgICAgICAgICAgICAgICAgICAgICAg ICAgICAgICAgICAgICAgICAgICAgICAgICAgICAgIC AgICAgICAgICAgICAgDQogICAgICAgICAgICAgICAgICAgICAgICAgICAgICAgICAgICAgICAgICAgIC ClUFXxFMPyRXJkPMNkHZQrINIxJWYyPZGhUJYqQPYaYZOnYBSfWCPcNNRpXFFfMDWgLQEnXWGiTQr1G0 daPRDbQWBsSZ2vYXd4Ds9+ISaLWnQuFRT6vvJraN3Y OH7pq6OnVHycOEHco4EcALc7GQ2DDBZfOSjcMR7OTDcmff7PPZMlACEnqMIYg9luPyZfEXJ9YITjVuip GO9HPBCbI6luvtIaIUCeWHCZSEtoVDEUGDrcRUEUVIHkMVXfZrJgPuSwSQBhGBZoFQIOGZS5KZBeQwMl VEsxHB7Xu8JnwQC0AJm+Un5OCJ4qq9TkYQkhFzFtRY 1zzh7COIxAFpWhN4LptzS5HQD9YTMdPl1ZAXFzCGLvhSFcPCAbOWPZXtArN5EwwN62VTGASg3+DQplbm NdGutBGwB3TPOjn8WhZYg8UO8JNDMdWHg6eAVkS14nq8HojFIuIquxNWeoSAAiXTOrcnjgGUGbILInFM BhHL5bSLEfREV2WyXvDMPEST3NSJYtKHApnPKgQWYz XJSYIS4PWWxaBWR1VHCnxnItcZFySKwgZK1TQMZtoqQnGxmqQSZUEUc+Vg3XHG5eb7PwWNezVUZfTR1o kk8MSNvKGpJnA3U8oQTcZ4Z2PDdyOc6BYYZtPYUyJmReGMGYXCyfDR7BEW2oweM6RA1LwPCrUVGtHOSc kUVhODg0Z11adVVnLIzlBI2BHNJ+Claudia+Jt4PPNKgLX YdPBQqBtKkKULFFjIqW0TpB8VTm3QnG4XwXT91xCetngHtFLeaOD3IRZ8lTCWjIZQMRX7DmVFyeN3tti CrGrNhEXLMLeYtJ44bgMZlZPQvXRH7JQXyWw2YYYLuG5JrppMawIkimsWdYSKjXDUONZ0PPKfswnAefV NqjQquFP17cHpeRW7CAv8JEgFgWV7zrd8BkFMcFe2M LFY1LA9WKKNtTWLvDNFjXPD6GFQyJcMxRQjxRCNqKIWrPXK6NUZeFUYwIG8ELgGcPDLcBgd4RwhkTQJh LILjij5TZQDrDOA4QCQkRGPzPRUjZRUdJLutQTWcIGFhDHO0IHWwNGKtWC3PBbCwZAJtOGM7APHaWBGy BJNhhy2YMQQkSMYqDch4HYRxKGPuEKFjJOazYHWsIW B4HVC3HFClGNPfNB5ZNvBaGTLvMOkbCFZtRTEuNRHwik6MBSCtPAUcQSQ7EhAhIDAjZABrMSozPFYbOJ E5JDvqQRBhKYKxCF3SWsXeYVMsLMPxGxJiTNJbTOQkhd9WJOZdYKEqDcC4PvQqFGPnJCSeMYvyARWqQJ R1QdF2IAGrYMRgRU8GMbWmYNFqBMJ2ZzMaKJRsRFVc vq1LSJWtKLUuOWf0DtOuINFpHTUsVZoaRGUhLMA5KGj3ZXZgPPOrED2JBnKsMDCfJcQ8MZBlNNNbHQTx il6SZQAwYNXbXtHpHZBqKWYyYHQtYWirOUZgWYAgHTdrIXYrTBDrZS5KIqYbCRIcQkWnImxuUNBvHSDm ea2LWTVqEWLdWyB1QJZkRKTuKNOgEHjcUIJaLPK6LZ H8HGBxLXWxVI8DPfLsVQHaOcX4ARPnKNYhRAUxne2QSIWjMFFfFIv4VYRuXLQyMEKcTTufRYXrIHT0Zt H4MNBcGLTxDX1HZnMfDPFkEqD9LSQdWHYtQHVqel4VYKFmTEHwEeQrGNBcUXFpYSCtFBbfINWkFPL7EO I6XHFmSLCpAL7CLrYlFSXnAwf0VVEfKVVuEIYkiu0Q BMEeCZZgMEF7OLQmJODiVJBuELgnDFNzSWD3BxcjMCIwKQSpJP0AIjVcGRNzUay8TyCsWWDxQIQhtc3M LWAgOYVwYEV1OYGzBMEgQBQsMLieZBJgWPN5BTP3VFGdUHPnXB0WTkCzNXPoDtn1UKYgISInEMJnxv0J BFCcRHR1FNC4LOEuMSOsJMJgLMseINThIABrWuE2CU UdACUnGF7AHsPyBCCyTTE0WbpxZMGwUIHnxv7TIIWlPXR8UZs6OhWdDPDgOFAqOXg6xxAwmDErVNf6SG 9UC9CvacEeXFUKRe9Bj539LXE6KGIaKm6VZ6nqIg2yJKQvIOAIPd0IRZc1BLz5NvQzCMRsXHO1J7XjQ2 C9MZMxXoR0QXO3FSl3SQP+IDwxODhmNmQwMWFlMzQ3 AUB7XPk8SxKyJCQzQEI2QzayVY2aSBUBNg7+JRqfcITgsKyrQZPHWoBoCNQkMFymTUVAEz5B ID Date Data Source [id number] 12/01/2020 03:38:04 PM EDT [facility] Name Value Range Interpretation Code Description Data Ellen rce(s) Supporting Document(s) Consultation [facility] NIVEWu8hIwKZJzHe43/MYNfyPJFkf5RiBRhvFNp7LTsyCJYlP4KyFBP8bR2dJOE0WRsQPtQeCjDnZZS1 lbm [file] AgICAgICAgICAgICAgICAgICAgICAgICAgICAgICAgICAgICAgICAgICAgICAgICAgICAgICAgICAgIC AgDQogICAgICAgICAgICAgICAgICAgICAgICAgICAg ICAgICAgICAgICAgICAgICAgICAgICAgICAgICAgICAgICAgICAgICAgICAgICAgICAgICAgICAgICAg ICAgICAgICAgICAgDQogICAgICAgICAgICAgICAgICAgICAgICAgICAgICAgICAgICAgICAgICAgICAg ICAgICAgICAgICAgICAgICAgICAgICAgICAgICAgIC AgICAgICAgICAgICAgICAgICAgICAgDQogICAgICAgICAgICAgICAgICAgICAgICAgICAgICAgICAgIC AgICAgICAgICAgICAgICAgICAgICAgICAgICAgICAgICAgICAgICAgICAgICAgICAgICAgICAgICAgIC AgICAgDQogICAgICAgICAgICAgICAgICAgICAgICAg ICAgICAgICAgICAgICAgICAgICAgICAgICAgICAgICAgICAgICAgICAgICAgICAgICAgICAgICAgICAg ICAgICAgICAgICAgICAgDQogICAgICAgICAgICAgICAgICAgICAgICAgICAgICAgICAgICAgICAgICAg ICAgICAgICAgICAgICAgICAgICAgICAgICAgICAgIC AgICAgICAgICAgICAgICAgICAgICAgICAgDQogICAgICAgICAgICAgICAgICAgICAgICAgICAgICAgIC AgICAgICAgICAgICAgICAgICAgICAgICAgICAgICAgICAgICAgICAgICAgICAgICAgICAgICAgICAgIC AgICAgICAgDQogICAgICAgICAgICAgICAgICAgICAg ICAgICAgICAgICAgICAgICAgICAgICAgICAgICAgICAgICAgICAgICAgICAgICAgICAgICAgICAgICAg ICAgICAgICAgICAgICAgICAgDQogICAgICAgICAgICAgICAgICAgICAgICAgICAgICAgICAgICAgICAg ICAgICAgICAgICAgICAgICAgICAgICAgICAgICAgIC AgICAgICAgICAgICAgICAgICAgICAgICAgICAgDQogICAgICAgICAgICAgICAgICAgICAgICAgICAgIC AgICAgICAgICAgICAgICAgICAgICAgICAgICAgICAgICAgICAgICAgICAgICAgICAgICAgICAgICAgIC GpIRJiYVIpDROlBHy2S4wyXPJqJRKlLC8aVLw4Lp2+ WGtWGxKxBXL3feWwwV6RZD3ni5MjDGgxTKCet6OaOMo4EG5ZYWLlONgeID0EYTgnxv4REONyIWCbiEOI u0yoLyGtMHB0AOScJirfAO2WUGRjV5aoheDjFHKfITWWJYodAONVDScpBMBCQXLvZROyRgQrOfYgPHRp IZBjGOCSDX1HEeAxI9CpzM07TPWPQx8+DQplbmRvYm qSCrY0CVVkj5UvLRs0LD6LARHfBsxff1UxLvKiWYPBMDrvLG3FRWJ1ATF1YYFwJt9CNZHpG217yfPzAC 7MYy6ZImVnNO9knt5ACdPpYUXwNilPZyk5IVlqPW1HxMYxFTwDd80biZd9rpCyfQWFaAR7rXGcAdPSwE lpikpdXPGbCLJbZGGyWI2bVCDgFTVfZwZ9SVILDN2Y ZOVaHPKbuJTlRWIwVMKALV2PRZwuSKQ6BTDboiVmjRKbIColJU1NLCCfpsPmMcNuLKTDNNa+Wj1XBO9b v1RoMUujXcAdWH1ghf3QYMrWFcKxD6N0lRAlG7S7XWbqIm5YUONqUUQqPaKiTYKRPYkuWH5KPU9jxmN7 WG4CkCYnRYRlCKOhaCZsNUd2D04tpFCwJLyeSF0EDA A+Claudia+Xu9SMPOsEIBbIKZgSmOeFEUGLvHiI2RjY5FUg4UiT6VfXU50nXfccoVmEPofQP4IYQ1bCDUwEB BBVK2JyGVduV9frjYjLJRyZHAFIfJjY52uuNNsPLUaNOP1KVLdLc3LLTUnX6JisuXefKbllxGhRTIfJI EUMS2SWIkkrrFazKLiaFywQX46nKxnAC9LQs7RQxTx MB5eoz3KnAWlOu1XHMIkWI0HAFIfUQSwKTMcZOQ0HZHsJhMnNZunSBLwLUPlZKA3OEBlVZZvPQ7LMkQv FPYkPlN7JKEvLJGuCAJrle6PFDUpLQClLGDqSTFlJWIwBCJqKPlaSVIqLGXgDRA6WHOiWZCzSF4GJaAg SGUsFKT7QPYpJOYbBUUovk7BONVsCJIaWcv7MsCtQJ YuIPGiIIuiNQZvKXE9QJs7XFBkQSBkUY2LGwWiEIIuVPVaTYemYZUeKVYffc6IWMZwLLIsOZJ9ZNMjWQ HaHWGtCWeuKOQsQKT2AjCnMCToEXMvZT8QFtXuUSReTQJ4EjAjAJCoIJKjgp7UYGAgVMBeUddzCeJcJJ TqCOZxFVqnBCNqFDN8TxPbEGOnVXLdAT8FJgBkDTYx EBG0INsuRBCvKAMbcj9JMBPdZWFhTGEsJrNpWJUsBKJdPNhlNWLcNDL7ZoZ7ZUHoBMLrSG4YDnRcPUXn UCg7LAfuVHBlNVTwoy7ZXJIwDLHpSMg1AkRaWWBfDAJmPAiiMNGmFTFeTME9KNSbRHMmWM4OQlCqWLGg BrHlNyzlKSQkLNBhdl2NMBXuQZPfQQElACStSDQsFK OlWCnrLOOgGCRvLOL8TPQmHXOoHZ7DYhOwIAJgRdYuEknuTQFhSIAgij9AADMkJFNiRiU1JNPvDIImMD KyCSaoVAFbEOWuChA0HJLcANWsQY3XHjAhFJJvJdIrVLuoTTZrWAWgsf3FMXEaMVIjBHOuBcGeJSLwHU RdIJxlMWHbSPB7PoMcOGUiXPDwVZ4JLwTlYDDaNaU4 TmPyBALnNKWsal3VFNWzTTStWXHfYKPoOMLbWVRlXDvfFCNyYJM3TCDoXQWyHLZjID8PIaOcRTOeXvGm XAKjAUNsRNVqbj1WXKJiYVBrXwKyJODdLDMmVWOnRKszUKWcKLG3RTPzPRLkPBWsWQ3AKlNlPONoIkri MhKkUODtFPCifg6JXGAhFVUjQXIlYiMxZADvJJUhCH khOHXrCIV8ISQ2HWOaEGDxVS2GGxNaEWkjRZUNMtv6GVrmB5j2FHClLH3GW0Ehe5JzJvppIWUGEUiaYT 6opkUlRDPaOr3GW0kOIwcyCxW4BXHnEIHrCFErZTVzOTljImotTySlNcNnVvO4Pr5uFMPtDbPtQPY0EY JcZXV1WTElBGLnR9RxURZfReJpFIb6QjWgRT6NTk4QJrT4PLC5yZFiMr1BGjw5WYMUKiDdXQ0HSNj= ID Date Data Source [id number] 12/01/2020 03:22:17 PM EDT [facility] Name Value Range Interpretation Code Description Data Ellen rce(s) Supporting Document(s) Leukocytes [#/volume] in Blood by Automated count 5.1 10*3/uL 4-10 [facility] Erythrocytes [#/volume] in Blood by Automated count 4.29 10*6/uL 4.6- 6.1 L [facility] Hemoglobin [Mass/volume] in Blood 12.8 g/dL 13.5-18 L [facility] Hematocrit [Volume Fraction] of Blood by Automated count 38.5 % 4 1-53 L [facility] Erythrocyte mean corpuscular volume [Entitic volume] by Auto mated count 89.8 fL 80-96 [facility] Erythrocyte mean corpuscular hemoglobin [Entitic mass] by Automated count 29.8 pg 27-33 [facility] Erythrocyte mean corpuscular hemoglobin concentration [Mass/volume] by Automated count 33.2 g/dL 32.0-36.0 [facility] E[facility]th[facility] distribution width [Ratio] by Automated count 13.0 % 11.5-14.5 [facility] Platelets [#/volume] in Blood by Automated count 212 10*3/uL 150-400 [facility] Differential cell count method - Blood [facility] Neutrophils/100 leukocytes in Blood by Automated count 69 % [facility] Lymphocytes/100 leukocytes in Blood by Automated count 19 % [facility] Monocytes/100 leukocytes in Blood by Automated count 7 % [facility] Eosinophils/100 leukocytes in Blood by Automated count 5 % [facility] Basophils/100 leukocytes in Blood by Automated count 0 % [facility] Neutrophils [#/volume] in Blood by Automated count 3.50 10*3/uL 1.8-7 .0 [facility] Lymphocytes [#/volume] in Blood by Automated count 0.97 10*3/uL 1.2-4 .0 L [facility] Monocytes [#/volume] in Blood by Automated count 0.36 10*3/uL 0-0.8 [facility] Eosinophils [#/volume] in Blood by Automated count 0.23 10*3/uL 0-0.5 [facility] Basophils [#/volume] in Blood by Automated count 0.01 10*3/uL 0-0.2 [facility] Nucleated erythrocytes/100 leukocytes [Ratio] in Blood by Automated count 0 /100{WBCs} 0-0 [facility] ID Date Data Source [id number] 12/01/2020 03:23:04 PM [facility] Name Value Range Interpretation Code Description Data Ellen rce(s) Supporting Document(s) Magnesium [Mass/volume] in Serum or Plasma 2.0 mg/dL 1.6-2.6 [facility] ID Date Data Source [id number] 12/01/2020 03:23:04 PM [facility] Name Value Range Interpretation Code Description Data Ellen rce(s) Supporting Document(s) Phosphate [Mass/volume] in Serum or Plasma 1.8 mg/dL 2.5-4.5 L [facility] ID Date Data Source [id number] 12/01/2020 03:23:04 PM [facility] Name Value Range Interpretation Code Description Data Ellen rce(s) Supporting Document(s) Albumin [Mass/volume] in Serum or Plasma by Bromocresol green (BCG) dye binding method 4.0 g/dL 3.5-5.2 [facility] Bilirubin.total [Mass/volume] in Serum or Plasma 1.5 mg/dL <1.2 H [facility] Calcium [Mass/volume] in Serum or Plasma 8.4 mg/dL 8.6-10.0 L [facility] Chloride [Moles/volume] in Serum or Plasma 104 mmol/L 98-107 [facility] Creatinine [Mass/volume] in Serum or Plasma 0.79 mg/dL 0.70-1.20 [facility] Glucose [Mass/volume] in Serum or Plasma 159 mg/dL 70-140 H [facility] Alkaline phosphatase [Enzymatic activity/volume] in Serum or Plasma 68 U/L 40-129 [facility] Potassium [Moles/volume] in Serum or Plasma 3.9 mmol/L 3.4-5.1 [facility] Protein [Mass/volume] in Serum or Plasma 6.0 g/dL 6.4-8.3 L [facility] Sodium [Moles/volume] in Serum or Plasma 137 mmol/L 136-145 [facility] Aspartate aminotransferase [Enzymatic activity/volume] in Serum or Plasma 11 U/L <40 [facility] Urea nitrogen [Mass/volume] in Serum or Plasma 11 mg/dL 6-20 [facility] Osmolality of Serum or Plasma by calculation 287 mosm/kg 275-300 [facility] Creatinine/Urea nitrogen [Mass Ratio] in Serum or Plasma 14 [facility] Bicarbonate [Moles/volume] in Serum 22 mmol/L 22-29 [facility] Alanine aminotransferase [Enzymatic activity/volume] in Seru m or Plasma 6 U/L <41 [facility] Anion gap 3 in Serum or Plasma 11 mmol/L 8-15 [facility] Glomerular filtration rate/1.73 sq M pre dicted among non-blacks [Volume Rate/Area] in Serum or Plasma by Creatinine-based formula (MDRD) >6 0 [facility] Glomerular filtration rate/1.73 sq M pre dicted among blacks [Volume Rate/Area] in Serum or Plasma by Creatinine-based formula (MDRD) >60 [facility] ID Date Data Source [id number] 12/01/2020 01:57:07 PM EDT [facility] Name Value Range Interpretation Code Description Data Ellen rce(s) Supporting Document(s) Consultation [facility] ETISZr2qLeYLHsVn98/HOVtdABUtf1UcYNxcZXi4JAhfRPLiJ3PcDVC6uI9xLIS8PWlFJgMpApHtFMI5 lb UxUlvEKcYcZTUkLazTYlPkAZrdCjeheHTnSW6OlAA4YCYhK46qWQXfYMQkK0QwFRD6AnR+Br0OXBIhyK SvTJ5EXfoD1A7tP8t9Ow9+Vfc/nOfh2xViZod07unYalPDIVh7OrhbIanRF6V3Hgn2SrZtA3+yJT+6Y/ rwWBoScputQJfk/qkfarVassOY+u/czSr1Ksny+Z/q 5lLB8StV/voXVndzRdWt/zK8Eg7CL4UU8VX13aTcEuT0svbrNknkN+pb0OdOndJwf8TWvFTBd7QvEW0z GDcLWXs8hD4ppJoCdGkOHmHec7lg7cld1BDvhxxJtX3X1rJzy+J3ubkp5azvX+slGXIG3ibr8zwbmJ0/ RhFEbqFH1ZmJKy+v8gdpImDuEmUV0WhIpnWi+Uveog DWfxKvZcDcPkcfn7PatGY/KrzQFcp/qcLqveI0fNa7tot8V1YjeGzEzTv3apwYLi/AYcohO4atJeLmJQ ecGEqw0+OwVfnfIJKtC8b0ImbjGTaASTqdEC+rfiJeWtCuB0im4vUdSWsJfwvdCBZszuuQ0YOhsaQ3/2 EYaIjiydhGn06w/5Nt3qpGjX9EG89pRczD7hyQVQkH 1UYv74bJRHOfywFhc7BoK5xgrbGbINra9+5LSwum8DG2hU2soyIxUwe2k0g2b4eClciHFGxL0ozHiEjd OsqvBt0KpNNHQjIjeJulogAAFZtD70bQXZaa9MSdC+9zR6zURPnuvp8WVZ00qOBjSzfXewObCaETtiUg DRSqhndoJmLECGFLEjMh1BPYD0JYYPYMuTLyZA2jxM [file] AgICAgICAgICAgICAgICAgICAgICAgICAgICAgICAgICAgICAgICAgICAgICAgICAgICAgICAgICAgIC AgICAgICAgICAgICAgICAgICANCiAgICAgICAgICAg ICAgICAgICAgICAgICAgICAgICAgICAgICAgICAgICAgICAgICAgICAgICAgICAgICAgICAgICAgICAg ICAgICAgICAgICAgICAgICAgICAgICAgICAgICANCiAgICAgICAgICAgICAgICAgICAgICAgICAgICAg ICAgICAgICAgICAgICAgICAgICAgICAgICAgICAgIC AgICAgICAgICAgICAgICAgICAgICAgICAgICAgICAgICAgICAgICANCiAgICAgICAgICAgICAgICAgIC AgICAgICAgICAgICAgICAgICAgICAgICAgICAgICAgICAgICAgICAgICAgICAgICAgICAgICAgICAgIC AgICAgICAgICAgICAgICAgICAgICANCiAgICAgICAg ICAgICAgICAgICAgICAgICAgICAgICAgICAgICAgICAgICAgICAgICAgICAgICAgICAgICAgICAgICAg ICAgICAgICAgICAgICAgICAgICAgICAgICAgICAgICANCiAgICAgICAgICAgICAgICAgICAgICAgICAg ICAgICAgICAgICAgICAgICAgICAgICAgICAgICAgIC AgICAgICAgICAgICAgICAgICAgICAgICAgICAgICAgICAgICAgICAgICANCiAgICAgICAgICAgICAgIC AgICAgICAgICAgICAgICAgICAgICAgICAgICAgICAgICAgICAgICAgICAgICAgICAgICAgICAgICAgIC AgICAgICAgICAgICAgICAgICAgICAgICANCiAgICAg ICAgICAgICAgICAgICAgICAgICAgICAgICAgICAgICAgICAgICAgICAgICAgICAgICAgICAgICAgICAg ICAgICAgICAgICAgICAgICAgICAgICAgICAgICAgICAgICANCiAgICAgICAgICAgICAgICAgICAgICAg ICAgICAgICAgICAgICAgICAgICAgICAgICAgICAgIC AgICAgICAgICAgICAgICAgICAgICAgICAgICAgICAgICAgICAgICAgICAgICANCiAgICAgICAgICAgIC AgICAgICAgICAgICAgICAgICAgICAgICAgICAgICAgICAgICAgICAgICAgICAgICAgICAgICAgICAgIC AgICAgICAgICAgICAgICAgICAgICAgICAgICANCjw/ fAPsQ1zvsBTojjV0G2jcPw9ZHx3JGE6pd9QiRVTzFWiweaGhXbiAZcYeAMLkSiiLAbu5GLbtXB8WhVEd U5EfK2NxUHojPL1CPICyLZCpeYJcUKIdGZTyWhF6UPSrEDjsHR0JpECvLJjmENBcRAWpDgCfWKXoWL3E HPDaF131taOeYv2MEl3LSwQlNU8hwh1BOqJrCGFuFt cEOqm0CUjtAY6MuKMbbPUeQcMnGFRAPuFfC3upd5CePaYmHGNWMWzgHK3Cu0QyjIRbGAg+Ps0LUA0qk1 QwQVfkPgQpWI5srw9GRYpFCaSjF4YqxCwmGSVkwcQ8aVRxZEY2EWbmoQ9tJKDkBIG2cOZrDHeZQ7nlIJ OqQNZaTH3nCKEsUHRpBcD6QBCZNL7AGYZxDVRqmIEw NATtGJRAWI5ICKuzQCG6QFVwvmQzrGVaNXryRB9ILVYhnhYlWzYkVQXLZGc+Tv9HWV2hj6BuCQdiHAUv XF6mfj7AYSdGJfIaP5V5oYYhH1E5XIhcQv5GXOEeESXwUdScAZAMEVrwEV3TQM3hjiJ9OL1CuWQgZKZw YGEcjDWkQWg3X15epGDyRMjoLK8QWDO+Claudia+Pg0KIC GbKXQwTGLoLhPgQVNNCkSnT4UhA5MVw8QtW0ScIJ16jBctlsJdDJgjIO1WMO3nTCXuPRBTWK9FlXLmwB 2obnSaXiXkTBNBJxSkA94dkZMoHNNbEFUlTNQiXu8NJSKqS2HfrgWxgRoejsViTMWzCGPZET7NLVappj DhxVFhwKwvXS50vZozKC5FWf3XHxGzXJ7omd4NpOWd Ua0SWZBzOS5BCOVhZJVfYXTyUZW1DPFcCdUvBEazIJJfAQCgIWP8CQTcVAIeLT5JSfXlWNZtCODuVLgo SZHsQYLdyf7QNVOxDGIeXth7RdRjKLVaDCBpQEpoCODcKKGqEAS3TOKoVXPbZA7FHbOnFYThTGI6UPZc ZPZiNEDlcs1WSLQkLLWpHrkvNmEnXUKpTDRbNOvlLF JzCSD2ESY2VIOtETVgPE8PYsWcOBTaBMD0MAIpXBBeGGWhym1KMBIiMTCeCiA4SOAfFZUaDBFeOJgrXD NpUWL5QkK1ISUyODKyOP9XFcJwQTFdMXW1FYouGCXhEQTkjm6KFNWiZUZaAslsTzWdURFsDCKzYDyyGD EjCAQ0ATU4ZJOtIONyMP6KEbQzCQLlPCffHFNlOVIa TNQbpl1PWXLwDPFbDFI7JVKcCSRoALRtYVhaZTCgNUT3NVP4LJKzRMRcWW3LEeEyHMHaTYp8PGEtKKTa IXGvok7ZBTLtXDPlTQEfFBGbFDEdFPMnDRtvYQMdBSFhCUKnMSEiXMGxVQ9MXqKwINOwPKM5PGYdPLEa ZDCihw1FOADtNUBtMGVmKtJaMLHrNYHbMNylPDAuAF NgTXjtLEMqTLWyVS1ZRrShYMCbYAA7HHUzFBSzDFVprw0XBUVqGQHlNpV0NYJeVMUxIQKpXMu6mcAifS GfTVj2PP9IH7YcnwNdSoLHJc5Zr626XRN6MEHuGw9NN5laXj9zNPOfLNDVQh5ZLTx9OFA7QaCeRlEmDT Z6TJLlPNFhQ7WiISS5XZK6QHV6WtT+IDwxZDhiYWNi TVV5TePgPPS0R4GfLtG3RET9FhZ0GQv3LL2nJHPPBl1+VIcxkOEqfTkhTJYWDzMtLgN3ZJxpHVWZFx8H ID Date Data Source [id number] 11/30/2020 10:18:16 PM EDT [facility] MR BRAIN WITH AND WITHOUT CONTRAST [id number] FINAL RESULTInterpreted by:Mariah Houser MDINDICATION: Brain metastases suspected.TECHNIQUE: Multiplanar multisequence magnetic resonance imaging of the brain was obtained. IV gadolinium contrast was administered.COMPARISONS: CT head with and without contrast dated 11/26/2020FINDINGS: There are no abnormally enhancing lesions within the brain parenchyma. There are no areas of abnormal restricted diffusion to suggest acute infarct. No areas of abnormal susceptibility are identified to suggest the presence of acute hemorrhage. The cerebellum and brainstem are normal. The regions of the sella, pituitary, and pontomedullary junctions are normal in configuration.The extra-axial spaces are normal in size and morphology for the patient's age. The basal cisterns are patent. There is no shift of the midline structures. Normal flow voids are present.There is a large retention cyst in the right maxillary sinus. The remaining paranasal sinuses and mastoid air cells are clear. The visualized orbits are normal in appearance.IMPRESSION:1. No evidence of metastatic disease.2. Large retention cyst in the right maxillary sinus.This document has been electronically signed by ROSIE Houser on 11/30/2020 10:16 PM Name Value Range Interpretation Code Description Data Ellen rce(s) Supporting Document(s) ID Date Data Source [id number] 11/30/2020 04:23:58 PM EDT [facility] Name Value Range Interpretation Code Description Data Ellen rce(s) Supporting Document(s) Consultation [facility] JNXJFz2rMjZXQwHz47/EMNfuIOGqu9HyNAroEBp4CWnfCJAuY5AjGTZ4uH9zEVR4OPlAQcMlFnPvWZJ0 lbm [file] ICAgICAgICAgICAgICAgICAgICAgICAgICAgICAgICAgICAgICAgICAgICAgICAgICAgICAgICAgICAg ICAgICAgICAgICAgICAgICAgICAgICAgICAgICAgICAgICAgICAgDQogICAgICAgICAgICAgICAgICAg ICAgICAgICAgICAgICAgICAgICAgICAgICAgICAgIC AgICAgICAgICAgICAgICAgICAgICAgICAgICAgICAgICAgICAgICAgICAgICAgICAgDQogICAgICAgIC AgICAgICAgICAgICAgICAgICAgICAgICAgICAgICAgICAgICAgICAgICAgICAgICAgICAgICAgICAgIC AgICAgICAgICAgICAgICAgICAgICAgICAgICAgICAg DQogICAgICAgICAgICAgICAgICAgICAgICAgICAgICAgICAgICAgICAgICAgICAgICAgICAgICAgICAg ICAgICAgICAgICAgICAgICAgICAgICAgICAgICAgICAgICAgICAgICAgDQogICAgICAgICAgICAgICAg ICAgICAgICAgICAgICAgICAgICAgICAgICAgICAgIC AgICAgICAgICAgICAgICAgICAgICAgICAgICAgICAgICAgICAgICAgICAgICAgICAgICAgDQogICAgIC AgICAgICAgICAgICAgICAgICAgICAgICAgICAgICAgICAgICAgICAgICAgICAgICAgICAgICAgICAgIC AgICAgICAgICAgICAgICAgICAgICAgICAgICAgICAg ICAgDQogICAgICAgICAgICAgICAgICAgICAgICAgICAgICAgICAgICAgICAgICAgICAgICAgICAgICAg ICAgICAgICAgICAgICAgICAgICAgICAgICAgICAgICAgICAgICAgICAgICAgDQogICAgICAgICAgICAg ICAgICAgICAgICAgICAgICAgICAgICAgICAgICAgIC AgICAgICAgICAgICAgICAgICAgICAgICAgICAgICAgICAgICAgICAgICAgICAgICAgICAgICAgDQogIC AgICAgICAgICAgICAgICAgICAgICAgICAgICAgICAgICAgICAgICAgICAgICAgICAgICAgICAgICAgIC AgICAgICAgICAgICAgICAgICAgICAgICAgICAgICAg ICAgICAgDQogICAgICAgICAgICAgICAgICAgICAgICAgICAgICAgICAgICAgICAgICAgICAgICAgICAg MSUgHOWtJLFvDBOfSATkPEAlSPQiSXAsMSVuQVKtKKQaYZJoQJUjJAYfHKXmRJKuUTu0K6rgMXHbILRj TQ4nYEs0Wx4+TWoLRfSpMFN9rbOsmU5RWS0ph6GmQY cbGBUit5MvECf3FE1GTHJbMGboLS7OCJvnrk6JIAZaLGOtzXHUu4xeBiZnNJJ5DZSzUqrgPS0XYOBiL0 nrryDaJRIoOIUZZIlhSCGTRHuiRWXOSTRsJVZkInCbMuWyGJGtTAHaXQCAOYX6UZOfLxWaZYYfEOWaAu GiRFQPVP3SWaKzX4OljX73AJqWTy4+DQplbmRvYmoN DzJxEYHsz4BwVLj9WG0PBZGxRwppl3DxBTEqDOEJGVwcZC5WHLT4DPXkTYTmDb9UPYPqE562doQjSO8P Rw3LEqWtWG8qqy8OKJXyTLNmGiaRRir3BWioOW7XfCGdCRmUb04sgMk3jmJxsNTObzvjsp4uQMlqD8sm jUk1jK1SvBTmICEEKONnbHUcOE70TrAeNzOzORj3QO DsSZ8nLYvzDN4AUXY8AOogONXrGQTzE1lQBjPpZOEnEdGozNxyMO1BSvMkX4QwaoEvlBU4XODtIIJCSn 4+JVpmhsCdJtePIfVkOWPna5ViKRu9TR0GGVAsASqgGC5WIAZizZ5pMXstHP5JYmFeVIAdJFWSWaYlX0 9zdBFiWMb2J7VzOaNiLSVkCozqDPReHMwlZdHaPIOc WyBdDQogID4+ID4+TQuyLB5RULtgfrAlVCWxRm5UZOCbITKkDK2eRZMcBULlH1Y6fFcnBKMMCaRjA8xl orymVM7sUZPhN462fSjznrHcEQZkRPPdBg0BQULzMPF9TZToiKQpDZLuOUAZYJyrSP4RmFRqFSH5kK8q RNxaHJPsWZOpW9gUUsLdiLdwNE59pQgcdmYkdLBxOB o+Qo2BVV9pr6PaWPc8vqCiJRivQAE9JEqpSSPdBQPfKBKxEWM6IPH2UKYPLrCrBUJuEPBfLDdbLXNpSG Cugu4HNWAfCBY1FoO7XqLrYEKuQLOuWXerUXKuFQW3Kwm0OXSxMYLyYP0SQmFeTPCsERZhGJonJIBqYP Wbpk3LPOXyRVCwSOR5JJTwNCTuGFLhTFtzVRXrSVN7 TMyhSBQxNEKzHP9BUeNpNFReEQbuQWtlVCYzMIOezq9XKQWwIPEbPuMuXwRxFWIbPUSiYLcyIHRgIQQa DXz4OGVhRXPcPK2ODvDzCPSiOYIvIJVxERGyAMHcmd2MUTVzFZSbLpP4PrNmQIWwVDOeKYfuBIPdRFZq XLT4VPZwYXJyED4HKxQtWCTqJAg0NQUzMJVtLUMfkx 2SBOOuAGYbUdh0BhXwLTAkIPZxUMbwEHBeAMEdJiSxRLHbYOXcBE5MKzSjIHRiYtE5PUGvPIBuTFOpus 5NNHDvIXLdKNO2UrJzGPToQFPfWHelTFXtYHI8RfJ6MKSyMAOsKK5LEoGgKUYxQrZmJKAxSXPyURNbwp 2LJUQhZSJjQzHhQNDdHIGdUAFvSCvsCOIjNKI2Sphs WYFkLUGyGE3MErAeIQDoGaO7TCwrRSXgHQLaog2TXBUvASSoYvs9CEKkQKSrYRMjEYclFPFaPMK4BXM4 PFKsYHIqYZ1EEvGeBVIdHxssHqseEVXbVBDhns5CZHSwWHKpELO6ZNIuEFXfVUBoTWfjHAAaDVM3Qdsa TJKaRTWkHY1BRkFwUWVhNwm0QtinWBXdIRFhui6XAC XyJTPmQQBrJWPgQOYnSENcAJhuOYPrJIY9XnC0LWHxKJMhQY1WAvOnWGHvEnk5MTquYXTyDGWvsq0HNC AnQUI4FNWwMmTcVQClGUZcMEkjRGPxGAFwExNnFYNhAQYbCY4UImRmNOXlKEE7DgFgSRLpXQAwqr4JJC TmYWU1FsX3WDIrFCDyOJGiTTtpNUVxNAOoVqC9FFOi YKAhRQ3RCkMgMWGdHWPdGOnwRKYzOCCerq1RTABzDYZ9CyK6TwBiKGGnIWIyLYsqJBRqKETqFMA2CVLq REPrHO7YPbIcMKTfNDE1IRagNAFgVGEmhp9TJANnRXD8EEZ9GPDxJBQhJCPnKSemRJCsOAI8TQOnODZd CCEzNX4ACrVmQFCkDET7VyUlZOEbPTYsrg4AgQWerF tgif0BPVmEMv4XyJbpOKU5DSyePu1qyTU1ZgZzROYTHe5IqeYcBGNoRKMHTPgsHVOrNXR2FoGbMjf3CA IgHUS5DKFcGrPiUZT6Q7TpMiSeS4MeQfE5QkHtLEL6IVbwJBGyGEKjXmV9EYX6AcmnIKHsC7ExO2C+IF 0gDQo+Sq2Nx5LcgsG1juKlCVx7JRjvCd0OPKIWU1DFAu== ID Date Data Source [id number] 11/30/2020 04:09:58 PM EDT [facility] Name Value Range Interpretation Code Description Data Ellen rce(s) Supporting Document(s) Consultation [facility] CJEKVt3oWdIKChXs65/FKFdmHDHmy3XhFEdiTWh0MGmfARMyO4FfZIV9hY5yEKD1HRgFXeMzFoVrOHN8 lbm [file] C7WXDnNnC4CQV7UhReBUWnCEE+RY0cIRy+Cs0Ij0BbhwZ8sqTlZBf1ZuA7Su6UXNOLU0ZMQc== ID Date Data Source [id number] 11/30/2020 02:47:27 PM EDT [facility] IR IMAGE GUIDED NEEDLE DRAIN PROCEDUREFI NAL RESULTInterpreted by:Antonio Amos MBBSPROCEDURE: ULTRASOUND GUIDED PERITONEAL NODULE BIOPSYHISTORY: 35-year-old male presents for ultrasound-guided biopsy of peritoneal nodules.COMPARISON: None.OPERATORS:Attending physician: Jayant Valdivia MDFellow: WIN LandEDATION: 3 mg IV Versed, 150 mcg IV Fentanyl, for 30 minutes of moderate conscious sedation. The vital signs including blood pressure, respiratory rate, pulse oximetry with PaO2, and heart rate with the EKG tracing were constantly monitored during the procedure.PROCEDURE:Limited pre-procedural ultrasound demonstrated a isoechoic/hyperechoic peritoneal nodule in the left hemiabdomen. The overlying skin was prepped and draped with sterile technique. The skin and subcutaneous tract were anesthetized with 2% lidocaine. A 17g introducer cannula needle was advanced into the peritoneal nodule along the planned trajectory under direct ultrasound guidance. The 18g core biopsy device was placed through the cannula and a series of five (5) core biopsies were obtained with ultrasound imaging documentation of the site of biopsy. The samples were sent for histologic evaluation. The needles were removed, and hemostasis was obtained. A sterile bandage was placed over the puncture site.The patient tolerated the procedure well without immediate complication.IMPRESSION: Successful five US guided core biopsies of the peritoneal nodule in the left hemiabdomen using 18 gauge needle. This document has been electronically signed by Jayant Valdivia MD on 11/30/2020 2:45 PM Name Value Range Interpretation Code Description Data Ellen rce(s) Supporting Document(s) ID Date Data Source [id number] 11/30/2020 07:38:39 PM EDT [facility] Name Value Range Interpretation Code Description Data Ellen rce(s) Supporting Document(s) Carcinoembryonic Ag [Mass/volume] in Serum or Plasma <3.4 [facility] Levels of CEA should not be interpreted as absoulute evidence of the presence or absence of disease. It should not be used as a screening test for Cancer. CEA values obtained using different methodologies cannot be used interchangeably. This method is manufactured by [employer] and is an electrochemiluminesence immunoassay. ID Date Data Source [id number] 11/30/2020 07:40:30 PM [facility] Name Value Range Interpretation Code Description Data Ellen rce(s) Supporting Document(s) Ibbyk-0-Ezutrgbhqwc [Mass/volume] in Serum or Plasma <9 [facility] ID Date Data Source [id number] 11/30/2020 07:59:29 PM [facility] Name Value Range Interpretation Code Description Data Ellen rce(s) Supporting Document(s) Cancer Ag 19-9 [Units/volume] in Serum or Plasma 93 U/mL <35 H [facility] ConfirmedThis test uses [employer] CA 19-9 el ectrochemiluminescent immunoassay. Results obtained with different test methods or kits cannot be used interchangeably. CA 19-9 is useful in monitoring pancreatic, hepatobiliary, gastric, hepatocelllular, and colorectal cancer. CA 19-9 value regardless of level, should not be interpreted as absolute evidence of the presence or absence of malignant disease. ID Date Data Source [id number] 11/30/2020 12:34:45 PM [facility] Name Value Range Interpretation Code Description Data Ellen rce(s) Supporting Document(s) [facility] SPYVHh3iGzDKVcAl49/BJWylEMKrb8EeWEizGWw7VShiVTJeG4GxCJR8xN7yJZL3LJcFHcQgZrTzWUE1 [facility] [file] AgICAgICAgICAgICAgICAgICAgICAgICAgICAgICAg MBXgHZVnTENrBWApNTPyPHHqTFIpKMSfOBDkHT1QRFTiOCCtRZYlXZUpAQDkVLOwPBKkSSRtGATfEWOq ICAgICAgICAgICAgICAgICAgICAgICAgICAgICAgICAgICAgICAgICAgICAgICAgICAgICAgICAgICAg GBZdFVHbWVXoJG0HKXVdVVPiVCGcVRMtWEQvUUKzLM AgICAgICAgICAgICAgICAgICAgICAgICAgICAgICAgICAgICAgICAgICAgICAgICAgICAgICAgICAgIC IdKWGvMWYjGRVyFFAcPOZvQUGeSG3DWOZnTMIkUJNwXBMvUPPzZJHeYMKeTRGpDODbSZAaCYSmKXQoXD AgICAgICAgICAgICAgICAgICAgICAgICAgICAgICAg ZOMbAEIeISYmCXYiYVNoMSJgKUUxXHZxMAThUAUjXR9VFUEoQBIuIRUrVMOqEMQeNBQjFBBvDMRzVPBi ICAgICAgICAgICAgICAgICAgICAgICAgICAgICAgICAgICAgICAgICAgICAgICAgICAgICAgICAgICAg MXLrQHQdDIGeRCZhMV3VUKWbAUKtXPRdBECwPNOhVC AgICAgICAgICAgICAgICAgICAgICAgICAgICAgICAgICAgICAgICAgICAgICAgICAgICAgICAgICAgIC IlZJQdUSTdKDNoFELsFLRaQPHkQNDcIV4NICGcALEzIMGvTWBnKHFbYLOrMTFwOFTkSMLaEKRjMGKhPY AgICAgICAgICAgICAgICAgICAgICAgICAgICAgICAg IEOqCUDmEQQlBUFmGECeKAXrAHUnKNXfFFMoESEmHRFgGL3GZFSjJENvDVNlOHJzPKSdOPEdTPVaDFAt ICAgICAgICAgICAgICAgICAgICAgICAgICAgICAgICAgICAgICAgICAgICAgICAgICAgICAgICAgICAg PGSpDMWlZIWrLBFwFARmSM1HCDXqSMRyQWAeBVFxHY AgICAgICAgICAgICAgICAgICAgICAgICAgICAgICAgICAgICAgICAgICAgICAgICAgICAgICAgICAgIC PnVDOoWVJjUCEaASNyHFIeWQOpOQQmHEIdQX9ETFPfPRWwPAFkPPFjEVAzVNCzRXClYTUtAPGnSXIeCE AgICAgICAgICAgICAgICAgICAgICAgICAgICAgICAg FAJmSYVtDEPmVHDvZQOaBHJaZTZgCYCeBYWdBOQuUGZdUIOuHJ0LTI78vRLjb0W2TULgHS7pupp/Pg0K NCdvnyBxhPJiJN6LKhIuPD6vgi0EMpCeFV5enn7VOAoABeXjC2I6eVHpCODxIDPCAkRwG57kSRukBh56 VAooSSFyUwWrFRt3Wx8HWiJrU6orEAOsRyI0IBUdDh F5UNKcYlC7FXAqElOqLUVqCHCqUNPzBEJJVJL9IAIiElRhEAejLU0Rj4TuxYS8APy+By4ALX0gq3AkTV l5BVYkYG1sfy1BJQcPWjGrW9PfafB9XLHgYYKuUh3RSXPrZHKscAI1YkHaDNZTJnGlQ9MdpV18JLBAHh 4+LZcjonFwSgzKOkKsHBKek5MjXAb0GV1MXZRrWHy7 yUKrZ79xv8TftWMeQauuQv4fPSpaPGZqD3o3cubtr1FwoWuiODGzMGKdDFMkJU2zSURlBXW6IvZkCNWR KH9WHZFtCBIbuGVwHLIyOEBISJ1RJOvmQME6YWKncyEcgKHpGLtrCZ4IOILaxzKjVDOgROPWNRe+Pg0K WG1yk9McUKo7JjWsCE7itp7AHIoHFiGpW4E9fGDeX9 H9XAgqLm1XLOMxKRDtBkodZFAMFWcyTC3VMI6cxyT0KI6CnVBqKNKcAVIokKWcRRx5C48crIVlISncZI 0KICA+Claudia+Os9SDSVlJOZfZNSzJqLdJETIYiYwY2XbA0CXa0GaK5CwVV75zFwsetWdPQxcWP5YKG9fPL GoXCXLBC4AgLKlgN4lfmS7UKOsBXMQOqVdX48ysJEo VTDlOJYuLOHdDk6RYMPcY8CyuaOvoIjmzcYbBKGiXASGLM5WJDyhwlEhpPTetHikTD98jGjgXW3XWg0Z AlBeTQ8kel0YlVNxUz0MTHH3ZJ7KWABaVWVbDDSoGHO4XDXqXqTvRFzoRHNzWVGuQEA7VNQeIQAdRI5S TqKfUQOnVXI4NCabJQJwCKXrjo9MLSKiRBE2SuM6NB QrVHDyALRbAHioTYFvPKXkTKE1JGJkVKXpFN5XIeXvWMDnWBJ2AmitVXByAHLmto8VQWWyEAGgCbo1Hl HwQZHuVOFvRWuqCYFlRCN0KnJ4DPUpKQMwEW8PIeIjEDXdLGs4VKqgWCUpWMJrzo4LAAZrRHZiPZVrFX FxMZOeINTbAMpaLIVeUMSaGkY6YSTrVAYkAY0AZcMl OHMaJKP7IBEnNFDpCSNxim8FWOUrAKIjFVe1KLHqIMPpSSYuRXayKWRwHPDdXXS9ZUYyDNQxDM3AEiUj SQRjLrGtApIcSZIdOVJahs0JAQRmCTYvFHSxBETlUGIbPWVqGBfqFFAyYCB5SzJfTLDnMLKfWR6MOxQw DSZiBeIrQBVqDHByCLBovp2EOPAdOCOdOPH8QXGnAV CdKXRhCCxiWQMtQZS1UjzkDIGsWVLrTM3LQjUgGINqMrE0NrFmXRWbJUTxga0OCHOfKZJqMdbuFvZmDK CmIOCuYWozYORvTCJ9GQJdLHNsRVGtWC2CRzOlCWVrDxr4QnfoGQEwGYLzec2DIHJrFOEpSYY1CYQsPU IdKBSoPPueHZReLPF7BvB4MSHpLOJcNP4YHrCdBYTn YestLwmpXVVgTNDwnb7IEIVqHAUsDEBjQlJhEFBoBNFdJTpcPNSwJQR4FuL0ENBlIMZtDH4VBuYyEUAf RRUwDSGtTUWkALVwcs6QODShJVA1ADWeJiYkLKNdYPHuUAmeEPQmYYNzHdGrBAOoWHLbMC6RObImFARd PSG6GoWlSHXoHLCnyw7CZUErNQM7WwLqLoRoCGHeGI IbSIshUTVbKDJuFUAqHWNtEXLsBH2XQvQyPILcVGWrVjrrOBScHHLraz9AKVQuPOT6BaMcTaQqJGTrWT VkPOdzGFApFWG9CiY3RIDjEWYkVQ1JZpGlFULePZT1DHRdPRImCSBnmw4MFNQrRKS3VSTtZYLaMHIxVM RcANwzSKQzGSG1TDJwDWIjMOVkGI8ZOyWwBTRjQNY3 YvWaZFIoUNLlpf2IDRTnKMV9QtS1FlPcLNHwRYWbMQeuEQWfHUP1BfyiKFMkXRNcWB3MNfCfZChjPTRY Hmk4YZxtO8p0ANL8ZT8BT8Fex7EbIQGvOUYAXCueZT2qgnIxGJVwXw9UT5uLIschAiJzSSKkJnXjLALy QQH4TcqdWhl4CrC0BTHaBeT7WL1tZSKvRMHzSKEoLa ByGzG6Lgh1T6AuBWC7RKk8NvT8IVc1SpEvLX5EDk3CCoA1BTV5iJIaGq8SMCjhYaLLMjYpEU5RMOj= ID Date Data Source [id number] 11/30/2020 08:25:07 AM EDT [facility] Name Value Range Interpretation Code Description Data Ellen rce(s) Supporting Document(s) History and Physical [facility] CNHUZi2aWpXKCoAb86/WDTknFOJsv4NhORyoRFq6FKehYBBhI3LfBJZ2cD7oTZS9XEeWIcDaPkZdAWY7 lbm NvCtvLImPfFOVhOzvPLcRkXMdmHhhsxMKvNY5CsLR4RSUdH82cQQLrVGOtT9QmEQRuPXM+Kx0FZGIanW OjKK3KGluU8Vlrr+P2Tn6j9D9FvKIRTym4zIRSCvmSiEl4a5FtdE62GKN0JrNwtOC5FKn7q54/LyWRlo bN3WAncD0uppgDC0vHhLXrXAxPl0K203qZpKLKDAe+ ca6KkpXQDH0wR6L/zpmqjyvd0BLSAPEMOYGGpJJj+LPFC6P5KESChiXLnwCYIQjWd3eQRVlqJAX7/A4N xgpmI5GG8BEoqrUIPGtdCiK7zl/R8L/ofIi+2B4T0GVYJlt+HGkAV1ZOLyNFYc8RpNRbVzPIOdETxuox nzdyW4CXBeYKccKFYpK4rAl+V86WJ+uRM99WkmCERW v7TgQrkBQPd1MsgJUp7CanDoyVTb7zC1LPnJGFTl0m41JR78dSMGO7L07F7nhFB9mwafWWOCS8qFDfLq bTnkTliomvuLov2RsGfrap32s1m9GGL4e6d+vjsp0ZyxnoAf0SjiW0Ex23SnHBAYXgFDBvxx5++FNFQ2 sr8WOi/ivp0KoFRrqAUhDLuMYEnatSo8ICkJPxgu4g KJRWpzc/3ED8jVEVkNzY7riEz7K4Zkw+nFEVUlRqJY1MSMwSrfrK24uGbrS9rL0ae7oGRVUDeFUKKdWg EW6ZiYU158IFcTv3FWw6T40Xl7w5fl1L72Z9oi6JQj9UGQ6kjCVROHriLDsNZMT0ernljrBIWNOPXGZL 4EoTnTaEMmoxXWeP0MLqcmKayXk4zBwBtoXklXUSbR OC3kKlL/S5rKyCFMDhpz0COheJSVY/jmKvrBUZ6EI3anzAvDlTlvA058lBRixNDoc3Q96JafR6w0hkP0 0IQ/BvSbB93iziZWH9XGoVfGif1WNEVJIEj7i5vTuHDtu2RaRnOGApI8fK7HGKsppED7EXrDTvNXzFjS ncIdTBs6f8Z3gxrWJloLu5ZugsqLFKlMMRPc5r+Iris [file] rb6wViJquOE6EhwcgYaaWvfzxwDD1ouIHCQyyB/half-way [file] Ema2Ks1hATSGIz8+NWndkXSckIkjUPLALhO3CMCgFByiDDQYTa2S ID Date Data Source [id number] 11/30/2020 05:42:47 AM EDT [facility] Name Value Range Interpretation Code Description Data Ellen rce(s) Supporting Document(s) History and Physical [facility] SAHLQy6yIrCYKmAv98/UMYkmXLWwm2TpSTnxIMq0FMyrYLFmV2UtYIZ8zC8gDQV0SShIIxPlCdOyJQA9 lbm [file] Saúl/FU0ETuOIwaCf+SW24l2gz1gSBX3UYcvVKkYFPEofCWk2EYuHfxlU9UXeoWxxq7ckils9hPcBR+zm8 [file] ICAgICAgICAgICAgICAgICAgICAgICAgICAgICAgICAgICAgICAgICAgICAgICAgICAgICAgICAgICAg ICAgICAgICAgICAgICAgICAgICAgICAgICAgICAgICAgICAgICAgDQogICAgICAgICAgICAgICAgICAg ICAgICAgICAgICAgICAgICAgICAgICAgICAgICAgIC AgICAgICAgICAgICAgICAgICAgICAgICAgICAgICAgICAgICAgICAgICAgICAgICAgDQogICAgICAgIC AgICAgICAgICAgICAgICAgICAgICAgICAgICAgICAgICAgICAgICAgICAgICAgICAgICAgICAgICAgIC AgICAgICAgICAgICAgICAgICAgICAgICAgICAgICAg DQogICAgICAgICAgICAgICAgICAgICAgICAgICAgICAgICAgICAgICAgICAgICAgICAgICAgICAgICAg ICAgICAgICAgICAgICAgICAgICAgICAgICAgICAgICAgICAgICAgICAgDQogICAgICAgICAgICAgICAg ICAgICAgICAgICAgICAgICAgICAgICAgICAgICAgIC AgICAgICAgICAgICAgICAgICAgICAgICAgICAgICAgICAgICAgICAgICAgICAgICAgICAgDQogICAgIC AgICAgICAgICAgICAgICAgICAgICAgICAgICAgICAgICAgICAgICAgICAgICAgICAgICAgICAgICAgIC AgICAgICAgICAgICAgICAgICAgICAgICAgICAgICAg ICAgDQogICAgICAgICAgICAgICAgICAgICAgICAgICAgICAgICAgICAgICAgICAgICAgICAgICAgICAg ICAgICAgICAgICAgICAgICAgICAgICAgICAgICAgICAgICAgICAgICAgICAgDQogICAgICAgICAgICAg ICAgICAgICAgICAgICAgICAgICAgICAgICAgICAgIC AgICAgICAgICAgICAgICAgICAgICAgICAgICAgICAgICAgICAgICAgICAgICAgICAgICAgICAgDQogIC AgICAgICAgICAgICAgICAgICAgICAgICAgICAgICAgICAgICAgICAgICAgICAgICAgICAgICAgICAgIC AgICAgICAgICAgICAgICAgICAgICAgICAgICAgICAg ICAgICAgDQogICAgICAgICAgICAgICAgICAgICAgICAgICAgICAgICAgICAgICAgICAgICAgICAgICAg PGLtLSDhFKKhBFKlPOYvEQOpYQHePARhLSStWYXvRBFcHMWhEIJkFXQwVBSbVLUfZDa3G6oeGYErAVVl BG6jIKn4Rn5+EViUZoMuRJL8upFwdK0CXN3kx2BtTU afVLCan9SiRKq7JW6TDMKoMEueGK5LICwdlo0IVALbODZowLRXe5lgUlNrTNF0XOPuKbvmVL2TESGwZ7 nzjmDwYYUvIDVARTmtVAKVEEghVINPGTXlJXQaIvKpMdEiSVYoUCMpSRQGHME4BJWhCpEeTDltYY7Ss3 ZsmCO0RVg+Iv7ZCY0on0OcRQk3UFNhBZ0idj4QGHtF JpPiA2HntiU8SAEySNBwEh8ADWZwPICwcTN9QYNvYXJIQaHsZ3RuvC38FEPYGy6+DQplbmRvYmoNCjQx JIZlf6FcOBg9VL7TMERrQFo7lZTfTOEKXJJ6GCCwMAdva8VeOVOytLNcHI4NYcXeOWUzWCFeCj8iSBZu HHL2UqD8GUROHN5UQYFnGQVfuVIiAFXuDDRNFK4FZG ahYEI8XFMdteNtpSOoMOnbUL2UFQIbfzFlKCVaTNSISLi+Lm5JHH8ou8NsNVs9NxWdLV0jlf7LRPlNTl NxL9G9fONjX7H3FDobUp0MUZFeTARuBbpmRCZCLOgoSE3XQA9vnhR0TE8WeZKjGNTwAKVplXGkBEw6N9 1stBHhFEeeOT7MKUB+Claudia+Vq9BPIEuXDOjCMMqSfCp DJYJOmQsP3JoQ1VTs8AxE2JiVL64mTdoxiOlUZzsFU9VYI5yUDIlBIXDAA1NnQWnjL1usbO0CFQwPLGJ JlZfY21ipEHuUUHtRFO8BVHlDd8FZRJxA4SrzkJzbReixhAuQHShSGVQPP6SKYuztbBvxLUotDwnIR12 sUuyRA6MIt6XJbNkQE8vtc6UaZAuEt4DYZH9Bv4ABQ LsFQAmUEMuRYD4SACrMoXuJImzBUBwHKIzGQK4NAGgGBNhWL3LFgCiUIKyLJN5PQHhRAHvYMUzif7FHN SsYVP6RmJcETSgVQTlVSBdJHwkFBRtOBWuVIR9MDAgLHJnAZ9JHsBjSHQjCOBlSiByHRXvISHxim7UJG PpFBEnAFIdXKVpJPMuTFNqESpyBGUsQCR8GJStBCIa DJNzQV4YUzZgVHHaGOj7MpZnQCHnABGjtm3GFDXwIKLqYWj0MFBbYUUqWFAgCJaxOWBcXIQrWFG4VNPe MEGiVD4VGwAtXQGfVLDbHJMoILDtFHWjui9UTZNeJAGeIYF1VkIfNNZhUGUkZIgsAPJjENP0YZEwAAYd FNWsHM9LYrQfDMMzENwnIgJdOSOvPHReaf0HOLZoFI McStEhVYZtQDFzFQPeGQjoYNGdKCOmNAF0SBPyWJXmZB8LQuYiRGJtKuO2SfRzCCNvGFBpwp3PWOEdCA QkBTG9QmDyYNWpNGLoXYfdRARsHUJ9JxL4SDHmRAIbFG2XPtQlDUGuVeX0XpYcVRCyDUUyjc7HWCAlJU HfFsWoOlOdKIFkUNRnQXrgKVKwUHY6KSZ9BRXtOQQf CI3FBgLbWYAcHczpOgsoTIXmYDYomn2HUURqVERaTOT2CeDaEUJoFJOdLVqjFQAcWRK8BpI2GTPiJLSm UQ7JJiVaUNKhFux2LNSaEHMnUPVpiv6WIVUtPGDsDVH7FmFkOAYoFLRlRSdwYSAhXTRbBfV8LRShOWIc UW9REnCkXKDnLhH0KDsuXHHaHWVfzt1FUYWgQHJoVJ B6GLTgJFYeZZPuXZkuDDKsHEYqLTchVDYjTZSpWW0UAwMdFAVbGEH8PKnySIXgEQXyks4KIBAhGPM5Ku MmNeMsFFBqKRLbZEtsZVNiVIIwWpV6EVAoJXJtNB8HLnYiVSPpFGH0PNElESZbIEGlxs5XXLRfOLQ7YR E7WyArIOAzEYXtMUrxUUCoHAD1GLR1XBIbFMVzWB1U KmNbAYXuONB3JfOxGKJwOQGxct1PQMBfUMA4LCK3PAYhBPUgRRKiXRxdBWXfDKX6XuS3AFLcUDUuRV4U ImPuLKThFVJ1AtUoZUWsXDCjfv2ORNNfIQB8Dsk1TWGwJARlZOWpJUm3tyXwbTNkUOc8RM9JD9QhcoJs RYUVPl3Qd328DFRhHLLqNx1HV0mtOe5vMOWwSZQNQu 6NDKn5JDqwLEDkUgl0SXD4IBapXQE1KOCnDjN6PLIdLECsPZW+SHc4EOM7WGXvZYs6SxWiM7FaFGQ1Dq C7UVfuY9OcDzMzMe9pUEUYQj4+VMxicNSruYspXIQYRmJ5VNKbMHcmFTYDQp7H ID Date Data Source [id number] 12/01/2020 10:36:00 AM [facility] Surgical Pathology ReportName: CONRAD BYRNEMRN: [id number] Number: [id number] Date: 11/30/2020 00:00Received Date: 11/30/2020 14:55Physician(s): TASHIA PHOENIX MD PINTER,JAYANT Gaviria,MDCopy To: TASHIA PHOENIX,ROSHNI,CHICHI,ROSIESpecimen(s) ReceivedA: Peritoneal implant biopsyClinical HistoryIR guided biopsy for peritoneal carcinomatosisDiagnosisPERITONEAL IMPLANT, NEEDLE BIOPSY: METASTATIC A DENOCARCINOMA. (SEE NOTE).NoteIn the setting of 5.5 cm mass in the pancreas, these findings arecompatible with metastatic ductal carcinoma of the pancreas.Osmar Paulson M.D.;Resident PathologistElectronically Signed By Luther Bhat M.D., Attending Ybaqwkdyslr34/5/2021 10:36:25 The attending pathologist named above attests that he/she has personallyreviewed the relevant preparation(s) for the specimen, performedmicroscopic examination when indicated, and rendered the final diagnosis.Unless 'gross-only' is specified, the final diagnosis is based on amicroscopic examination of representative personal service s ections of tissue.Gross DescriptionThe specimen is received in formalin and labeled with the patient's name,"Sherrie Byrne" and "peritoneal implant biopsy". It consists of multiplesoft eaton tissue cores ranging from 0.3 to 1.7 cm in length and averaging0.1 cm in diameter. Totally submitted in two cassettes designated A1-A2.[place]TH[place]AY\\This report may include one or more immunohistochemical stain results thatuse analyte specific reagents. All positive and negative controls havebeen reviewed by the attending pathologist and are satisfactory. The testswere developed and their performance characteristics determined by [facility] Pathology department. They have not been cleared or approved by the USFood and Drug Administration. The FDA has determined that such clearanceor approval is not necessary. Name Value Range Interpretation Code Description Data Ellen rce(s) Supporting Document(s) ID Date Data Source [id number] 11/29/2020 08:50:04 PM EDT [facility] CT ABDOMEN PELVIS WITH CONTRAST [id number] FRANCO RESULT - FINALInterpreted by:Yaritza Lima BeginsSigned on [place] Nov 29, 2020 8:49 PM by Royce Banda MDTHIS REPORT CONTAINS FINDINGS THAT MAY BE CRITICAL TO PATIENT CARE. The findings were verbally communicated via telephone conference with Dr. Newby at 8:49 PM EDT on 11/29/2020. The findings were acknowledged and understood.THIS DOCUMENT HAS BEEN ELECTRONICALLY SIGNED BY ROYCE Vigil EndsPROCEDURE INFORMATION: Exam: CT Abdomen And Pelvis With Contrast Exam date and time: 11/29/2020 6:03 PM Age: 35 years old Clinical indication: Abdominal pain; Additional info: Eval for sbo TECHNIQUE: Imaging protocol: Computed tomography of the abdomen and pelvis with contrast. Radiation optimization: All CT scans at this facility use at least one of these dose optimization techniques: automated exposure control; mA and/or kV adjustment per patient size (includes targeted exams where dose is matched to clinical indication); or iterative reconstruction. Contrast material: OMNI 300; Contrast volume: 100 ml; Contrast route: INTRAVENOUS (IV); COMPARISON: MR ABDOMEN WITH AND WITHOUT CONTRAST [id number] 11/27/2020 5:47 PM FINDINGS: Lungs: Minimal scattered subsegmental atelectasis seen involving the lateral margins of both lower lobes with both lung bases otherwise clear. No pleural or pericardial effusions are detected. Liver: No focal hepatic lesions detected. Gallbladder and bile ducts: Few small stones layer along the dependent margin of the gallbladder. Pancreas: A 4.7 cm low-attenuation mass with focal fatty infiltration seen along its irregular margins involves the distal pancreatic tail and is concerning for malignancy. Spleen: No splenomegaly or splenic mass. Adrenal glands: Normal. No mass. Kidneys and ureters: Bilateral excretion of contrast material with no hydronephrosis seen. Stomach and bowel: There is abnormal dilatation of multiple segments of small bowel seen in the central and upper abdomen measuring up to 4 cm in diameter and demonstrating numerous air-fluid levels. No abnormal colonic dilatation is detected. Lobular soft tissue along the margins of the descending and sigmoid colonic segments with areas of colonic narrowing in the proximal sigmoid colon are concerning for possible peritoneal tumor implants (see image 32, image 42 and images 63-75 from series 3). Appendix: No evidence of appendicitis. Intraperitoneal space: Abnormal fluid collection with associated mesenteric fatty stranding is seen in the central pelvis contiguous with a portion of the sigmoid colon and could represent abscess or other inflammatory collection. Vasculature: No abdominal aortic aneurysm. Suspected occlusion involving the splenic vein near the splenic hilum related to the tumor involving the pancreatic tail.Lymph nodes: Shotty peripancreatic and retroperitoneal lymph nodes are identified with multiple additional prominent nodes seen in the right lower quadrant and scattered throughout the remainder of the peritoneal cavity concerning for disseminated metastatic disease. Urinary bladder: Unremarkable as visualized. Reproductive: Unremarkable as visualized. Bones/joints: No acute fracture. Soft tissues: Unremarkable. IMPRESSION: 1. Low- attenuation mass with fatty infiltration along its margins involving the pancreatic tail is concerning for malignancy. Multiple suspected peritoneal tumor implants are seen throughout the abdomen and pelvis including abnormal soft tissue contiguous with the sigmoid colon and resulting in luminal narrowing as described above. 2. Abnormal dilatation of proximal to middle small bowel segments up to 4 cm with numerous associated air-fluid levels concerning for mechanical small bowel obstruction. No pneumatosis or portal venous gas is detected at this time. 3. Abnormal fluid collection with associated mesenteric fatty stranding within the central pelvis contiguous with for the sigmoid colon is concerning for abscess or other inflammatory collection. THIS DOCUMENT HAS BEEN ELECTRONICALLY SIGNED BY ROYCE BANDA MDThis document has been electronically signed by Royce Banda MD on 11/29/2020 7:23 PM Name Value Range Interpretation Code Description Data Ellen rce(s) Supporting Document(s) ID Date Data Source [id number] 11/29/2020 03:41:00 PM EDT [facility] Name Value Range Interpretation Code Description Data Ellen rce(s) Supporting Document(s) SARS-CoV-2 RNA 2019 nCoV Real-Time RT-PCR: NOT DETECTED [facility] This lab was ordered by [facility] and reported by [facility]. 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 [facility] Patient has symptoms related to [facility] When did you start to experience these symptoms [Date and time] [Phen X] [facility] Patient was hospitalized because of this condition [facility] patient was admitted to ICU for [facility] Patient resides in a congregate care setting [facility] status [facility] ID Date Data Source [id number] 11/29/2020 05:31:11 PM EDT [facility] Service Cmnt XXX-Imp : NoneRespiratory P CR Panel : PCR ResultsMicroorganism XXX Cult : See Labs Tab for 2019 nCoV RT-PCR resultsHAdV DNA QI LARRY+non-probe : Not DetectedHCoV 229ERNA Nph QI LARRY+non-probe : Not DetectedHCoV CIJ3SYE Nph QI LARRY+non-probe : Not AawmlhdpULzACQ07 RNA Nph QI LARRY+non-probe : Not MzfwimvfKKwFXQ89 RNA Upper resp QI LARRY+probe : Not DetectedhMPV RNA Nph QINAA+non-probe : Not DetectedRV+EV RNA Nph QI LARRY+non-probe : Not DetectedFLUAV RNA Nph QI LARRY+ non-probe : Not DetectedFLUBV RNA Nph QI LARRY+non-probe : Not DetectedHPIV1 RNA NphQINAA+non-probe : Not DetectedHPIV2 RNA Nph QINAA+non-probe : Not DetectedHPVI3 RNA Nph LARRY+non-probe : Not DetectedHPIV4 RNA Nph Q LARRY+non-probe : Not DetectedRSV RNA Nph Q LARRY+non-probe : Not DetectedB pert.PT PrmtNph Q LARRY+non-probe : Not DetectedC pneum DNA Nph Q LARRY+non-probe : Not DetectedM pneum DNA Nph Q LARRY+non-probe : Not DetectedB [id number] DNA Nph LARRY+non-probe : Not Detected Name Value Range Interpretation Code Description Data Ellen rce(s) Supporting Document(s) ID Date Data Source [id number] 11/29/2020 03:45:39 PM T [facility] Name Value Range Interpretation Code Description Data Ellen rce(s) Supporting Document(s) pH of Venous blood 7.40 7.36-7.41 [facility] Carbon dioxide [Partial pressure] in Venous blood 50 mmHg 40-45 H [facility] Oxygen [Partial pressure] in Venous blood 30 mmHg [facility] Base excess standard in Venous blood by calculation 5 mmol/L [facility] Oxygen saturation Calculated from oxygen partial pressure in Venous blood 56 % 60-85 L [facility] Lactate [Moles/volume] in Venous blood 0.6 mmol/L 0.5-2.2 [facility] Bicarbonate [Moles/volume] in Venous blood 32 mmol/L [facility] ID Date Data Source [id number] 11/29/2020 03:16:45 PM EDT [facility] Name Value Range Interpretation Code Description Data Ellen rce(s) Supporting Document(s) Leukocytes [#/volume] in Blood by Automated count 7.7 10*3/uL 4-10 [facility] Erythrocytes [#/volume] in Blood by Automated count 5.05 10*6/uL 4.6- 6.1 [facility] Hemoglobin [Mass/volume] in Blood 15.0 g/dL 13.5-18 [facility] Hematocrit [Volume Fraction] of Blood by Automated count 45.1 % 4 1-53 [facility] Erythrocyte mean corpuscular volume [Entitic volume] by Auto mated count 89.3 fL 80-96 [facility] Erythrocyte mean corpuscular hemoglobin [Entitic mass] by Automated count 29.8 pg 27-33 [facility] Erythrocyte mean corpuscular hemoglobin concentration [Mass/volume] by Automated count 33.3 g/dL 32.0-36.0 [facility] E[facility]throcyte distribution width [Ratio] by Automated count 13.3 % 11.5-14.5 [facility] Platelets [#/volume] in Blood by Automated count 314 10*3/uL 150-400 [facility] Differential cell count method - Blood [facility] Neutrophils/100 leukocytes in Blood by Automated count 78 % [facility] Lymphocytes/100 leukocytes in Blood by Automated count 12 % [facility] Monocytes/100 leukocytes in Blood by Automated count 9 % [facility] Eosinophils/100 leukocytes in Blood by Automated count 1 % [facility] Basophils/100 leukocytes in Blood by Automated count 0 % [facility] Neutrophils [#/volume] in Blood by Automated count 6.09 10*3/uL 1.8-7 .0 [facility] Lymphocytes [#/volume] in Blood by Automated count 0.90 10*3/uL 1.2-4 .0 L [facility] Monocytes [#/volume] in Blood by Automated count 0.66 10*3/uL 0-0.8 [facility] Eosinophils [#/volume] in Blood by Automated count 0.07 10*3/uL 0-0.5 [facility] Basophils [#/volume] in Blood by Automated count 0.02 10*3/uL 0-0.2 [facility] Nucleated erythrocytes/100 leukocytes [Ratio] in Blood by Automated count 0 /100{WBCs} 0-0 [facility] ID Date Data Source [id number] 11/29/2020 03:35:27 PM EDT [facility] Name Value Range Interpretation Code Description Data Ellen rce(s) Supporting Document(s) Lipase [Enzymatic activity/volume] in Serum or Plasma 37 U/L 13-6 0 [facility] ID Date Data Source [id number] 11/29/2020 03:35:27 PM [facility] Name Value Range Interpretation Code Description Data Ellen rce(s) Supporting Document(s) Albumin [Mass/volume] in Serum or Plasma by Bromocresol green (BCG) dye binding method 4.8 g/dL 3.5-5.2 [facility] Bilirubin.total [Mass/volume] in Serum or Plasma 2.1 mg/dL <1.2 H [facility] Bilirubin.direct [Mass/volume] in Serum or Plasma 0.3 mg/dL <0.3 H [facility] Alkaline phosphatase [Enzymatic activity/volume] in Serum or Plasma 80 U/L 40-129 [facility] Aspartate aminotransferase [Enzymatic activity/volume] in Serum or Plasma 10 U/L <40 [facility] Alanine aminotransferase [Enzymatic activity/volume] in Seru m or Plasma 8 U/L <41 [facility] Protein [Mass/volume] in Serum or Plasma 6.8 g/dL 6.4-8.3 [facility] ID Date Data Source [id number] 11/29/2020 03:54:58 PM [facility] Name Value Range Interpretation Code Description Data Ellen rce(s) Supporting Document(s) Bicarbonate [Moles/volume] in Serum 24 mmol/L 22-29 [facility] Chloride [Moles/volume] in Serum or Plasma 99 mmol/L 98-107 [facility] Creatinine [Mass/volume] in Serum or Plasma 0.92 mg/dL 0.70-1.20 [facility] Glucose [Mass/volume] in Serum or Plasma 96 mg/dL 70-140 [facility] Potassium [Moles/volume] in Serum or Plasma 4.0 mmol/L 3.4-5.1 [facility] Sodium [Moles/volume] in Serum or Plasma 139 mmol/L 136-145 [facility] Urea nitrogen [Mass/volume] in Serum or Plasma 13 mg/dL 6-20 [facility] Confirmed Anion gap 3 in Serum or Plasma 16 mmol/L 8-15 H [facility] Osmolality of Serum or Plasma by calculation 289 mosm/kg 275-300 [facility] Confirmed Creatinine/Urea nitrogen [Mass Ratio] in Serum or Plasma 14 [facility] Confirmed Calcium [Mass/volume] in Serum or Plasma 9.3 mg/dL 8.6-10.0 [facility] Glomerular filtration rate/1.73 sq M pre dicted among non-blacks [Volume Rate/Area] in Serum or Plasma by Creatinine-based formula (MDRD) >6 0 [facility] Glomerular filtration rate/1.73 sq M pre dicted among blacks [Volume Rate/Area] in Serum or Plasma by Creatinine-based formula (MDRD) >60 [facility] ID Date Data Source [id number] 11/29/2020 06:46:43 AM EDT [facility] Name Value Range Interpretation Code Description Data Ellen rce(s) Supporting Document(s) Consultation [facility] YFAUVb5jQiKBWaTf13/MFBdoJIOis0BlSLbcYZh7QKfhYBMnK7JvVBE3kB8dNML6BUuLCoIoNfZpANNb lbm [file] ICAgICAgICAgICAgICAgICAgICAgICAgICAgICAgICAgICAgICAgICAgICAgICAgICAgICAgICAgICAg ICAgICANCiAgICAgICAgICAgICAgICAgICAgICAgIC AgICAgICAgICAgICAgICAgICAgICAgICAgICAgICAgICAgICAgICAgICAgICAgICAgICAgICAgICAgIC AgICAgICAgICAgICAgICANCiAgICAgICAgICAgICAgICAgICAgICAgICAgICAgICAgICAgICAgICAgIC AgICAgICAgICAgICAgICAgICAgICAgICAgICAgICAg ICAgICAgICAgICAgICAgICAgICAgICAgICANCiAgICAgICAgICAgICAgICAgICAgICAgICAgICAgICAg ICAgICAgICAgICAgICAgICAgICAgICAgICAgICAgICAgICAgICAgICAgICAgICAgICAgICAgICAgICAg ICAgICAgICANCiAgICAgICAgICAgICAgICAgICAgIC AgICAgICAgICAgICAgICAgICAgICAgICAgICAgICAgICAgICAgICAgICAgICAgICAgICAgICAgICAgIC AgICAgICAgICAgICAgICAgICANCiAgICAgICAgICAgICAgICAgICAgICAgICAgICAgICAgICAgICAgIC AgICAgICAgICAgICAgICAgICAgICAgICAgICAgICAg ICAgICAgICAgICAgICAgICAgICAgICAgICAgICANCiAgICAgICAgICAgICAgICAgICAgICAgICAgICAg ICAgICAgICAgICAgICAgICAgICAgICAgICAgICAgICAgICAgICAgICAgICAgICAgICAgICAgICAgICAg ICAgICAgICAgICANCiAgICAgICAgICAgICAgICAgIC AgICAgICAgICAgICAgICAgICAgICAgICAgICAgICAgICAgICAgICAgICAgICAgICAgICAgICAgICAgIC AgICAgICAgICAgICAgICAgICAgICANCiAgICAgICAgICAgICAgICAgICAgICAgICAgICAgICAgICAgIC AgICAgICAgICAgICAgICAgICAgICAgICAgICAgICAg ICAgICAgICAgICAgICAgICAgICAgICAgICAgICAgICANCiAgICAgICAgICAgICAgICAgICAgICAgICAg ICAgICAgICAgICAgICAgICAgICAgICAgICAgICAgICAgICAgICAgICAgICAgICAgICAgICAgICAgICAg ICAgICAgICAgICAgICANCjw/mEXsL9fasLBrjlF9D3 ogMk3UUa9FHW5bx4AmXXSkXIheomXpTsvGUbIfVDAiQqvZUei4BTqkLY1HgXQlP8JkL9MlKJqnRK3JSK IfYQHuiEWxTCRgGFMtKaV2QPLmBGynFR5QxQMwGQjmKYCcWTFrVgBcXXDzJSYaATKwDAFmFHZBHTOxEZ CzVmChBTnzHH0Rv1LkqOE6VPl+Wk8QNW9sq3PsGHls QuFcIZ9abw5LENpSYbHaI9UfmzJ9JYG2HFVtZn0SFEWuQJMzcZBkCMIfBSVBSlOrO6VwhX13EFBIWz5+ MXzxvyAkHcaOWlI0TIZub4DtXIv8II3TQHFaHFq2xAJbX71oc7JxhOGnZfkzK6D5wS2cKn6gtrfoIHAw GBJvMDMwOS1zFPIlELLrJaJ8QJZXLT5QYTNuGDVttH WzUUZjVYCMUB5GYQrjPEO7IJHzpkTtaSExUQcyMT0XHETrbaDbAcWyDSNQNMy+Ot9XJB1ds1FzNBiqIO KlCY3dnf9RSZjVEuHzP1Z4xHJtN6Z0QLiiDa3DKYDrVPMiEbXgLWIANRnwHC9LXV5xexH5IN2OfHEbYM NtVIFeiROiIKx3T98dhIGpSFivAC5HNUF+Caludia+Pg0K WUBjZMMqRVObLcEdTISGCoBbR3IzE9LYp5QmF7EuDB49hWdtxhKcFZkqKO6HFE3gSKNlVDXORC1HjMIq iX6doxBfBhNeTFYQSsEiW26tnYOnDMXoOAYhYTDuQb9CQKPaG4ImalPdcFcaooOqLCXxHDMXLY2EKYmo dpTuhKSlnZdnLF14cEdzDK6WVx3BSxYnOV1olv0QaI VxQs3ZZNTyQy5PULVpUBHuUSLtQXK5AOGkSgQfDQktWOPqXQWbDLB7QYCtGHXnVE0VPmMzEOLqZuZ6YL MpDJBrZFOckh6MTOXgTYFhGbPdFFTgZOKzABQnITkiUATzEORnIQP6VSPoXTQoUS8WZnUiWRLbFMWaNH obKHQvEXHnor7SETTjRXMxUoJnNAMsOCCrIQAmVCjc UIBoYXA2HFerANTgLNUjJP3QDjYgCIUlHGsrGXVbVAEvKTRhwo4LFROyVOIaEWY8GRIvBWNhAMFqOAko CBWvHIG1EUk3UMGgWZPeKP5ZEsCiZUTvJJQ4SITxVISiOPGaqm0BOQIlJOPuYLc2WrNeGQFpSGLgFWfa QAWrVWA5VpXwYARtNNTnXD5ORaZxGJUbMLW7FPqqAS JvWMWxse7GPFUsJPOcOrhdTyGxDSKuUOFjATeiPTXnMTS0XYR3TBKrBIWeVG3OBbTfMEAgFNcrEVixHQ QjLVBuxf9YLXTyUYIkVUM0YlXjYVTiFMWzUDonIKWdOLK5OuQ4YXRfNJZbJH1QLqPdHAEoNZg5CvJlCL LyYDYosq5NAVVxHULeWHjyTXLtTURqCAQbUFpsSNYz OAEfLuK2URJwEZAgZC1AFsEvDIPkCnY5WHjhVUJcTYAutu2QJOUbEVXzTUJ2MgIdKKKsXJTcTBapGAEn WDGxTEOpZCEgGICiBY1KNuFmUCUkNeR0WolgLEVnFPSqoc6KWTSjCRPhMfp3FEKzARVwHHKdGOveUBRd HOMqOABgICLaRIKyJD1TJoFtPLShHeZaWYTfNLOaHB Evjc8RDAUoBQPqKJW6JUQlDVWrTVAdKAyrYIScSJU1JNCmBXPlFVHfYC7XZbHqHARgTbA4HUSqNBTbUW Ggei5UKSSjXCHxXsO2HTSoTULiKWDfAByeIDGsWLO5CKJkLOVnWWLgYL3LXgQyOLUiYrH5DocuJDZjVG Kcen3ZaKIjtWoxbg2OMLnHOz0LgCagUPX0NJowUa2i uEQcQYPbLOKYPu2VehUfNJMjBQPEXYhiNLAaCBDbEMx1Ett8HoV9KXFiPbN9DrP5HdM0RYw0BUN3Iaze TuJ4SRY6JvpcVxc8Mcy2UEFrCIBhXDnrBaG1NfmwYhYnSNI+IA9vGOi+Gm6Vc1XmsfU4inNfKPmdMplx Ai6MHEHPY6YDKc== ID Date Data Source [id number] 11/28/2020 10:55:45 AM EDT [facility] Name Value Range Interpretation Code Description Data Ellen rce(s) Supporting Document(s) Progress Note [facility] BFERAj0bXfFSEbSm26/JRSgkKBXsp5LyHHlxIXl3SFfkGWPtP5JrNWK7eR7fUVV2JZkEZrXzSuUrFSGj lbm [file] T0YNCg== ID Date Data Source [id number] 11/27/2020 08:15:02 PM EDT [facility] MR ABDOMEN WITH AND WITHOUT CONTRAST [id number] 83FINAL RESULTInterpreted by:Tessy Garcia, MDPROCEDURE INFORMATION: Exam: MR Abdomen Without and With Contrast Exam date and time: 11/27/2020 5:47 PM Age: 35 years old Clinical indication: Other specified diseases of pancreas; Mass, lump, or swelling; Other: Intra- abdominal neoplasm suspected; Additional info: Abdominal mass, intra-abdominal neoplasm suspected TECHNIQUE: Imaging protocol: MR of the abdomen without and with intravenous contrast. Contrast material: GADAVIST; Contrast volume: 8.5 ml; Contrast route: INTRAVENOUS (IV); COMPARISON: CT ABDOMEN PELVIS WITH CONTRAST [id number] 11/26/2020 8:23 PM FINDINGS: Liver: No mass. Gallbladder and bile ducts: Cholelithiasis and sludge in the gallbladder without evidence of. Pancreas: Infiltrative mass in the pancreatic tail region measuring approximately 5.5 cm by 5.3 cm. There is occlusion of the splenic vein adjacent to the mass.Spleen: Splenic vein is occluded at the level of the pancreatic mass, and there are multiple collaterals surrounding the spleen. Splenic length 13.5 cm. Adrenal glands: Unremarkable. No mass. Kidneys and ureters: Unremarkable. No solid mass. No hydronephrosis. Stomach and bowel: Pancreatic mass abuts the stomach and several loops of small bowel, without evidence obstruction.Intraperitoneal space: Multiple enhancing intraperitoneal tumor deposits are seen consistent with intraperitoneal metastases. Trace ascites. No free air.Arteries: No abdominal aortic aneurysm. Bones/joints: Unremarkable. Soft tissues: Unremarkable. IMPRESSION: Infiltrative mass in the pancreatic tail region measuring approximately 5.5 cm by 5.3 cm. Evidence intraperitoneal metastatic disease. Cholelithiasis, without other evidence of acute cholecystitis.THIS DOCUMENT HAS BEEN ELECTRONICALLY SIGNED BY TESSY GARCIA MDThis document has been electronically signed by Tessy Garcia MD on 11/27/2020 8:14 PM Name Value Range Interpretation Code Description Data Ellen rce(s) Supporting Document(s) ID Date Data Source [id number] 11/27/2020 12:07:56 PM [facility] Name Value Range Interpretation Code Description Data Ellen rce(s) Supporting Document(s) [facility] OGQQUt4wErJCZzRr20/PQAjzLJLai8CwJGloQCs1VSmdOFUxA2YdQTC5fP1dUDG0IDvMGyInDpPuQVOi lbm [file] wm+RN GYN+F7IcFKq7KBM0jLu28WZbOGcn/O/U3N43MqS7xs+5+Ddp3ufU8+DDw6igpkJ7ljISj8sWm//e++ [file] YgHXW9Cap6IQXzIAF4CZQ5NW1uCBOGGo4+EImspHImeYbrHOMYHbKuGUR9XUfzNNAAZt9L ID Date Data Source [id number] 11/27/2020 02:36:39 AM EDT [facility] Name Value Range Interpretation Code Description Data Ellen rce(s) Supporting Document(s) History and Physical [facility] PJXHKd7xKfZUGaYx84/NBZfnGZSmi5WuMDjmBPz8DDweBXVrV1EkEIA8hV2zSIE3SRkRQsSrEyXgWNOb lbm [file] AgICAgICAgICAgICAgICAgICAgICAgICAgICAgICAg KPZrHXAoBJIdJAEiSRBcLPGoCYCpEPLzJDTsDJAyKGFhUBOvOOPaYRHdATGbVRLoSPSySDNiBL7XKLMs ICAgICAgICAgICAgICAgICAgICAgICAgICAgICAgICAgICAgICAgICAgICAgICAgICAgICAgICAgICAg ICAgICAgICAgICAgICAgICAgICAgICAgICAgICAgIC NoNCDkRT9TXRCgIYIcPXAiIGJfHFAoCIYuDAMzWCAwMHJpOZZcKRAbTCPaJUMyGRUdSQBzCKGcJFTtHR PmJXWdRHOvOPCnIWIxYFQxTELbVSLxVVSjNGXaZFWoSILzVSReSEPsRWQkORMsMG9RXHVaUFQuBTLkWM AgICAgICAgICAgICAgICAgICAgICAgICAgICAgICAg GCAyVBLnCVLhDOWvTEPrCDBmJNQjSWMqLIRxECGgMJZqFDCzOMGrUFYlFJNuXNCbNVSuKHSgGHUzTA0H ICAgICAgICAgICAgICAgICAgICAgICAgICAgICAgICAgICAgICAgICAgICAgICAgICAgICAgICAgICAg ICAgICAgICAgICAgICAgICAgICAgICAgICAgICAgIC RwKBFbDAZdKQ1RWEZoIJYxKVTfOBQwLSNwFSYjQPYwWNPvYNGfTGKwFGTgXLNaHXSaOUKyTZOjVQMmKP SpLDNsDBQfNRZeHDQqQLUgILQeTMXbWLYnKVShPMPxMJGzDVPzHSTuRXLmBCXmVYYdHU6MKKHeGQIhHC AgICAgICAgICAgICAgICAgICAgICAgICAgICAgICAg ICAgICAgICAgICAgICAgICAgICAgICAgICAgICAgICAgICAgICAgICAgICAgICAgICAgICAgICAgICAg GT9TCUJkUMQjRGLcBYNfSZRtCVWeDQFxMWGhOBVgYPDrEDBoRZVdVAIwINVxVPDbVUWaUBFtOZIoOZZi ICAgICAgICAgICAgICAgICAgICAgICAgICAgICAgIC ZbTYMjKETtORBfUU3WHJVeBCNgFPJfALHkSODyMTQzMUZdUIPwXYZeZNEpGALdXMMzBSUkHEVkIWPrBC RiDIUqKUUiANGdGVViUOBbDCAuHPHvHGXhXGDzJLZdVNFaKBUmRCMqSIToXLNcWDScMGVdQQ6PIG48sV Xft2B0IUXaBP1gudl/Ib6FIYaxcxYewOOnWK0SMdUk YO0ltf3LHnOeYB1msn3LXRfTKdYqI2Y7kKEjRIPxYEPVPhHuI29cPIcqSv83BXyyORRuZqSjBSc6Jl8X YqGxD8ltDHIuFqJ8AOQmCtY2QUSoOlO6ZCHvAsXhDFHkJKQhDLJlGCKTCVT9RVKzTgDcIvShJTSxJM5P ZWPmV167kgTiEp3RYp5WDxCkMH3plc3JLsinSXRoGm dPSwa4AVxhKX4WrGDxyFFuTFLiIVCFYeNeF1ewr9WgVufxGNWMAEphNE9Il1VuoTGfONh+Gv6RPQ9tt0 IgNUuhGFBwLU7dxc5XDNiDXoKgZ4ZpkRfuSNzpXCVuiUHBXCC2TB1gDaDEtP8wkFGaYKBVPdUIVPI0MJ leNcCzUtXuHBJhDCt1RNXUYUvUIvEaY8Mra8MvBhN3 RSGhUeKjQRgtMIEqQhR9TF55yJljSV9COEJwAMIlZO43KBU5BZNoQt6SZn5VEaJsGX0jed7IHpuzSAQf IosWGnn4VOsyFK8DiBUtJ9CwcASxz0uCWgDnO1HXTFA8CPHmIb5KKHHxJaEtCYWfBSkmKD6oONJoOIXZ oZxsoyK4FN2GLT7tnwJtDP9XFnOrMk9mQf0KVdZjQ7 LuA0GzBJPxOSQYCBlkOJ6BSKnsMG1pBE8Xs5TNdEJqcG5wtv4AJENmNWDoUoclnk8PJktwZ2G9pShvJA VaPgpoQSNPSKveUM5KQWAbJZV8MXNxDhUzOHZPFlRpG98tJX2WH1Cdx03rHdP4QSBsFnGwEDiiOI44wW nmxgJadIWjrPjhZI7BJr9+DQplbmRvYmoNCnhyZWYN IkDvVIGBVpHgBYIgLZQsTLKyAsQ1ZhWjRn1ZMPWfPWGvJIHvYxTgLQDzQFBiGBssDQXdBIG8DrD3ZKWl FXZaYR2FQxHcKTGxTFDbUiNeYDVyQUDmwt0DZIKfLCIuAKQ8DgBtABXiXYWwDMmeNWEaKVP2IWX4XMPp KCCqWN0LWrRaKLEnKMS6QFpxXFRzAFTzov5BWUZgTH HuKAj0KWIyGKQoVDBpZUtqMANgWOL7YQUeBTXhHPAkQJ8VWvLfWTZpXWCfBGZwBCKlSPUxwq8CSVPzAE ZgMyYrWRMiPDNfDGClUOkfAYIxRWO7YTS1TCKzMUDlCD1ABkZlJZGoPSUzKKYlMDFtFIGluz0ZVKToKF EzQEw9IfEzJHZiDOZwUImkNNRoIWK7ZNF1KIPzSJXh EJ7ZDrTbHFBrXzZ5ICHwFHRhCUTmld3DFLXxPIUuSVZpFBRdJNUfSZHpEActHSRrWDV2AtCkENCoJFAr IM3KYxYoWFCrWzV4OZijXDVmRBTawc5RMLYwDEFxUkd1QnQhPGTgQRLqIJdqMYXuWOW6JCk1EYFkAJLy RX3OPtNcOFZzHqdjRRqjVPSaEMNkgw8BCPLfCNYhET VbBzHtZNKsRDTdRFfeCBLtSNY3RXI7UVJhFUWeSJ8HXaByULHrWyz6LFDhMMPsAQOuuq0KHHTmJYYoFC H6OyEyZFHoHILnPOdxGBLsWVLrFuOhXQStHUBnBX8DWqLzZTYuVbM7POXzZFUlEWJlyq9ODBYcSTJdGB xeZWYlNIWfZCMpHIuiQPXcHTRoUAI8AZUmPBCdPC2K WvUmUGXsDrQgVSAkIDArUQMeem0BIXAoTHA5WoI8OXXzMWCuDYErUVdqSKSeHUGlOHj5YZMoZQTwDS5E FfNhNXMgXYVpMVhbGUOyJSBwzk1ZUPOjMMK0QVK2KiLdVCVxJROzVRshTLOtKPS4HJbkKBTpMGHrLG8F DeLrTFWdVTBuYhQkIBAjTVIuvv5GLGAxRRV1CfApZy XwIOPkVSDzHWfuMNFkKOX0NGf2IIHeKUBxAW1TMcUiBGFwKKE0JATiMUTqATZvlx3DxCSnjNbsaw8GJJ qXFy1DtWsxLOExHBaxZk1gmZDpELGsKPOARh5HzpQhPFSwKPKAJVzzICCzVTE1MTFeBNSyNpEfZ9TpNT MrZ6V3WfH4PODzUnW2WHq5CeZ6VNcuSpFwGJCcHlPn CzZ4KeH9QOQdCiC0WrZ3HjZ2NnP+AL2vUTz+Hy1Rk2LlqrA2qqXkUQd8Owd4DU9UPILCO2BHSz== ID Date Data Source [id number] 11/27/2020 01:35:49 AM EDT [facility] CT HEAD WITH AND WITHOUT CONTRAST [id number] INAL RESULTInterpreted by:Aashish Gonzalez, Terrell Meza MDINDICATION: Trauma.TECHNIQUE: Multiaxial CT images of the brain were obtained from the skull base to vertex and displayed at 5 mm and 1.25 mm increments without and with intravenous contrast. Automated dose lowering techniques and/or adjustment according to patient size were utilized for this exam.COMPARISON: None.FINDINGS: No midline shift. The ventricles are appropriate in configuration. The basal cisterns are patent. No evidence of abnormal enhancement on postcontrast images.The visualized paranasal sinuses and mastoid air cells are clear. There is no depressed calvarial fracture. There is a nonspecific relatively well-defined sclerotic/groundglass focus in the left aspect of the pterygoid bone.IMPRESSION: 1. No acute intracranial hemorrhage or enhancing mass. MRI brain with and without contrast would be more sensitive for detection of intracranial metastatic disease.2. Benign-appearing nonspecific focus within the left aspect of the pterygoid bone, possibly exostosis. Consider correlation with prior studies to determine stability otherwise likely represents benign process in the absence of skeletal metastasis elsewhere.This document has been electronically signed by Aashish Gonzalez MD on 11/27/2020 1:33 AM Name Value Range Interpretation Code Description Data Ellen rce(s) Supporting Document(s) ID Date Data Source [id number] 11/26/2020 09:55:25 PM EDT [facility] CT THORAX WITH CONTRAST [id number] RESUL TInterpreted by:LUISITO KirkROCEDURE INFORMATION: Exam: CT Chest With Contrast; Diagnostic Exam date and time: 11/26/2020 8:23 PM Age: 35 years old Clinical indication: Other: See notes; Additional info: Abnormal xray - lung nodule, >= 1 cm TECHNIQUE: Imaging protocol: Diagnostic computed tomography of the chest with contrast. 3D haris dering (Not supervised by radiologist): MIP and/or 3D reconstructed images were created by the technologist. Radiation optimization: All CT scans at this facility use at least one of these dose optimization techniques: automated exposure control; mA and/or kV adjustment per patient size (includes targeted exams where dose is matched to clinical indication); or iterative reconstruction. Contrast material: [id number]; Contrast volume: 100 ml; Contrast route: INTRAVENOUS (IV); COMPARISON: CT ABD PELVIS W/ IV ONLY 11/24/2020 12:28 AM FINDINGS: Lungs: Atelectasis in the left lower lobe. Pleural spaces: Unre markable. No pneumothorax. No pleural effusion. Heart: Unremarkable. No cardiomegaly. No pericardial effusion. Aorta: Unremarkable. No aortic aneurysm. Lymph nodes: Unremarkable. No enlarged lymph nodes. Bones/joints: The spine demonstrates mild degenerative changes at multiple levels. Soft tissues: Unremarkable. IMPRESSION: No acute findings. THIS DOCUMENT HAS BEEN ELECTRONICALLY SIGNED BY MACKENZIE ARIAS MDThis document has been electronically signed by Mackenzie Arias MD on 11/26/2020 9:55 PM Name Value Range Interpretation Code Description Data Ellen rce(s) Supporting Document(s) ID Date Data Source [id number] 11/26/2020 09:51:30 PM [facility] CT ABDOMEN PELVIS WITH CONTRAST [id number] AL RESULTInterpreted by:Mackenzie Arias, MDPROCEDURE INFORMATION: Exam: CT Abdomen And Pelvis With Contrast Exam date and time: 11/26/2020 8:23 PM Age: 35 years old Clinical indication: Other: See notes; Additional info: Bowel obstruction suspected TECHNIQUE: Imaging protocol: Computed tomography of the abdomen and pelvis with contrast. Radiation optimization: All CT scans at this facility use at least one of these dose optimization techniques: automated exposure control; mA and/or kV adjustment per patient size (includes targeted exams where dose is matched to clinical indication); or iterative reconstruction. Contrast material: [id number]; Contrast volume: 100 ml; Contrast route: INTRAVENOUS (IV); Other contrast: Oral, feah867, 40; COMPARISON: CT ABD PELVIS W/ IV ONLY 11/24/2020 12:28 AM FINDINGS: Liver: Normal. No mass. Gallbladder and bile ducts: Multiple calcified gallstones are present. Pancreas: There is a low-density area within the tail of the pancreas measuring approximately 4.0 x 3.5 cm on image 110 of series 8. This could represent an infectious or inflammatory, or neoplastic lesion. 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 Spleen: There is a splenomegaly.Adrenal glands: Normal. No mass. Kidneys and ureters: Normal. No hydronephrosis. Stomach and bowel: In the right hemipelvis there is an ill- defined soft tissue area adjacent to multiple loops of bowel which appears to be causing traction to adjacent loops. This could also represent an infectious, inflammatory, or neoplastic process. This process is seen on image 286 of series 8 and adjacent images. There are dilated loops of small bowel throughout the abdomen. The contrast material reaches the cecum. This could represent ileus versus partial small bowel obstruction. Appendix: The appendix was not well visualized.Intraperitoneal space: There are multiple tubular structures in the left upper quadrant, likely representing varices. 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 There are multiple fluid collections throughout the omentum with increased density rosen. These could represent intra-abdominal abscesses. These could also represent pseudocysts in the setting of acute pancreatitis. Necrotic neoplastic lesions cannot be excluded. In the pelvis there is an area of abnormal appearance which is oval-shaped best seen on image 305 of series 8. This area contains mesenteric fat, rectosigmoid colon as well as free fluid. This area is unchanged compared to prior study and may represent an infectious process such as an abscess. Vasculature: Unremarkable. No abdomi nal aortic aneurysm. Lymph nodes: Unremarkable. No enlarged lymph nodes. Urinary bladder: Unremarkable as visualized. Reproductive: Unremarkable as visualized. Bones/joints: The spine demonstrates mild degenerative changes at multiple levels.Soft tissues: Unremarkable. IMPRESSION: 1. Cholelithiasis without evidence of acute cholecystitis. 2. There are multiple tubular structures in the left upper quadrant, likely representing varices. 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 3. There is a low-density area within the tail of the pancreas measuring approximately 4.0 x 3.5 cm on image 110 of series 8. This could represent an infectious or inflammatory, or neoplastic lesion. 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 4. There are multiple fluid collections throughout the omentum with increased density rosen. These could represent intra-abdominal abscesses. These could also represent pseudocysts in the setting of acute pancreatitis. Necrotic neoplastic lesions cannot be exclud ed. 5. In the right hemipelvis there is an ill-defined soft tissue area adjacent to multiple loops of bowel which appears to be causing traction to adjacent loops. This could also represent an infectious, inflammatory, or neoplastic process. This process is seen on image 286 of series 8 and adjacent images. 6. There are dilated loops of small bowel throughout the abdomen. The contrast material reaches the cecum. This could represent ileus versus partial small bowel obstruction. 7. In the pelvis there is an area of abnormal appearance which is oval-shaped best seen on image 305 of series 8. This area contains mesenteric fat, rectosigmoid colon as well as free fluid. This area is unchanged compared to prior study and may represent an infectious process such as an abscess. THIS DOCUMENT HAS BEEN ELECTRONICALLY SIGNED BY MACKENZIE ARIAS MDThis document has been electronically signed by Mackenzie Arias MD on 11/26/2020 9:51 PM Name Value Range Interpretation Code Description Data Ellen rce(s) Supporting Document(s) ID Date Data Source [id number] 11/26/2020 07:07:00 PM EDT [facility] Name Value Range Interpretation Code Description Data Ellen rce(s) Supporting Document(s) SARS-CoV-2 RNA 2019 nCoV Real-Time RT-PCR: NOT DETECTED [facility] This lab was ordered by [facility] and reported by [facility]. 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 [facility] Patient has symptoms related to [facility] When did you start to experience these symptoms [Date and time] [Phen X] [facility] Patient was hospitalized because of this condition [facility] patient was admitted to ICU for [facility] Patient resides in a congregate care setting [facility] status [facility] ID Date Data Source [id number] 11/26/2020 10:18:15 PM EDT [facility] Service Cmnt XXX-Imp : NoneRespiratory P CR Panel : PCR ResultsMicroorganism XXX Cult : See Labs Tab for 2019 nCoV RT-PCR resultsHAdV DNA QI LARRY+non-probe : Not DetectedHCoV 229ERNA Nph QI LARRY+non-probe : Not DetectedHCoV VHF1VCZ Nph QI LARRY+non-probe : Not AqndkpgdSTeBCQ79 RNA Nph QI LARRY+non-probe : Not TmdujyqoWHbDAZ30 RNA Upper resp QI LARRY+probe : Not DetectedhMPV RNA Nph QINAA+non-probe : Not DetectedRV+EV RNA Nph QI LARRY+non-probe : Not DetectedFLUAV RNA Nph QI LARRY+ non-probe : Not DetectedFLUBV RNA Nph QI LARRY+non-probe : Not DetectedHPIV1 RNA NphQINAA+non-probe : Not DetectedHPIV2 RNA Nph QINAA+non-probe : Not DetectedHPVI3 RNA Nph LARRY+non-probe : Not DetectedHPIV4 RNA Nph Q LARRY+non-probe : Not DetectedRSV RNA Nph Q LARRY+non-probe : Not DetectedB pert.PT PrmtNph Q LARRY+non-probe : Not DetectedC pneum DNA Nph Q LARRY+non-probe : Not DetectedM pneum DNA Nph Q LARRY+non-probe : Not DetectedB ebjqzSY857 DNA Nph LARRY+non-probe : Not Detected Name Value Range Interpretation Code Description Data Ellen rce(s) Supporting Document(s) ID Date Data Source [id number] 11/26/2020 06:47:23 PM [facility] Name Value Range Interpretation Code Description Data Ellen rce(s) Supporting Document(s) Lactate [Moles/volume] in Serum or Plasma 0.6 mmol/l 0.5-2.2 [facility] ID Date Data Source [id number] 11/26/2020 05:45:00 PM [facility] Name Value Range Interpretation Code Description Data Ellen rce(s) Supporting Document(s) Leukocytes [#/volume] in Blood by Automated count 8.2 10*3/uL 4-10 [facility] Erythrocytes [#/volume] in Blood by Automated count 4.71 10*6/uL 4.6- 6.1 [facility] Hemoglobin [Mass/volume] in Blood 14.0 g/dL 13.5-18 [facility] Hematocrit [Volume Fraction] of Blood by Automated count 42.4 % 4 1-53 [facility] Erythrocyte mean corpuscular volume [Entitic volume] by Auto mated count 90.1 fL 80-96 [facility] Erythrocyte mean corpuscular hemoglobin [Entitic mass] by Automated count 29.8 pg 27-33 [facility] Erythrocyte mean corpuscular hemoglobin concentration [Mass/volume] by Automated count 33.1 g/dL 32.0-36.0 [facility] al Erythrocyte distribution width [Ratio] by Automated count 13.3 % 11.5-14.5 [facility] Platelets [#/volume] in Blood by Automated count 266 10*3/uL 150-400 [facility] Differential cell count method - Blood [facility] Neutrophils/100 leukocytes in Blood by Automated count 76 % [facility] Lymphocytes/100 leukocytes in Blood by Automated count 16 % [facility] Monocytes/100 leukocytes in Blood by Automated count 5 % [facility] Eosinophils/100 leukocytes in Blood by Automated count 3 % [facility] Basophils/100 leukocytes in Blood by Automated count 0 % [facility] Neutrophils [#/volume] in Blood by Automated count 6.23 10*3/uL 1.8-7 .0 [facility] Lymphocytes [#/volume] in Blood by Automated count 1.28 10*3/uL 1.2-4 .0 [facility] Monocytes [#/volume] in Blood by Automated count 0.44 10*3/uL 0-0.8 [facility] Eosinophils [#/volume] in Blood by Automated count 0.26 10*3/uL 0-0.5 [facility] Basophils [#/volume] in Blood by Automated count 0.03 10*3/uL 0-0.2 [facility] Nucleated erythrocytes/100 leukocytes [Ratio] in Blood by Automated count 0 /100{WBCs} 0-0 [facility] ID Date Data Source [id number] 11/26/2020 06:18:12 PM EDT [facility] Name Value Range Interpretation Code Description Data Ellen rce(s) Supporting Document(s) Albumin [Mass/volume] in Serum or Plasma by Bromocresol green (BCG) dye binding method 4.7 g/dL 3.5-5.2 [facility] Bilirubin.total [Mass/volume] in Serum or Plasma 1.6 mg/dL <1.2 H [facility] Bilirubin.direct [Mass/volume] in Serum or Plasma 0.3 mg/dL <0.3 H [facility] Alkaline phosphatase [Enzymatic activity/volume] in Serum or Plasma 81 U/L 40-129 [facility] Aspartate aminotransferase [Enzymatic activity/volume] in Serum or Plasma 10 U/L <40 [facility] Alanine aminotransferase [Enzymatic activity/volume] in Seru m or Plasma 7 U/L <41 [facility] Protein [Mass/volume] in Serum or Plasma 7.0 g/dL 6.4-8.3 [facility] ID Date Data Source [id number] 11/26/2020 06:18:12 PM [facility] Name Value Range Interpretation Code Description Data Ellen rce(s) Supporting Document(s) Lipase [Enzymatic activity/volume] in Serum or Plasma 32 U/L 13-6 0 [facility] ID Date Data Source [id number] 11/26/2020 06:31:56 PM [facility] Name Value Range Interpretation Code Description Data Ellen rce(s) Supporting Document(s) Bicarbonate [Moles/volume] in Serum 26 mmol/L 22-29 [facility] Chloride [Moles/volume] in Serum or Plasma 98 mmol/L 98-107 [facility] Creatinine [Mass/volume] in Serum or Plasma 0.89 mg/dL 0.70-1.20 [facility] Glucose [Mass/volume] in Serum or Plasma 79 mg/dL 70-140 [facility] Confirmed Potassium [Moles/volume] in Serum or Plasma 4.0 mmol/L 3.4-5.1 [facility] Sodium [Moles/volume] in Serum or Plasma 136 mmol/L 136-145 [facility] Urea nitrogen [Mass/volume] in Serum or Plasma 7 mg/dL 6-20 [facility] Anion gap 3 in Serum or Plasma 12 mmol/L 8-15 [facility] Osmolality of Serum or Plasma by calculation 279 mosm/kg 275-300 [facility] Creatinine/Urea nitrogen [Mass Ratio] in Serum or Plasma 8 [facility] Calcium [Mass/volume] in Serum or Plasma 9.7 mg/dL 8.6-10.0 [facility] Glomerular filtration rate/1.73 sq M pre dicted among non-blacks [Volume Rate/Area] in Serum or Plasma by Creatinine-based formula (MDRD) >6 0 [facility] Glomerular filtration rate/1.73 sq M pre dicted among blacks [Volume Rate/Area] in Serum or Plasma by Creatinine-based formula (MDRD) >60 [facility] ID Date Data Source [id number] 11/26/2020 07:38:36 PM EDT [facility] Name Value Range Interpretation Code Description Data Ellen rce(s) Supporting Document(s) aPTT in Platelet poor plasma by Coagulation assay 33.2 s 24.0-33. 0 H [facility] ID Date Data Source [id number] 11/26/2020 07:38:36 PM EDT [facility] Name Value Range Interpretation Code Description Data Ellen rce(s) Supporting Document(s) Prothrombin time (PT) 13.9 s 11.6-14.0 [facility] INR in Platelet poor plasma by Coagulation assay 1.11 [facility] Routine intensity oral anticoagulation I NR is typically 2.0-3.0. Target INR must be clinically individualized. ID Date Data Source [id number] 11/24/2020 03:29:00 PM EDT [facility] [address] [place] [address] PHONE: [phone] FAX: [phone] Name .................. : ALECIA Gaviria Acct Number.................. : [id number] ROOM. ................. : [address] Number ................... : [id number] Stay type ............. : E/R Discharge Date......... ... : 11/24/20 Admit Date ......... : 11/23/20 Admit Phys .................... : LEXUS VÁSQUEZ Date of ....... : 1985 Family Phys ................... : NO PCP Phone .................. : [phone] Age ................................ : 35 Film# .................. .:[id number] Sex ................................. : M Unsigned transcriptions are preliminary reports and do not represent a medical or legal document CT ABD & PELVIS W/ IV ONLY [id number] COMPLETE:11/23/20 23:38 19223 Reason(s): epigastric pain, known pancreatic mass on CTon 11/[address] [place] [address] ABDOMEN AND PELVIS WITH IV CONTRAST INDICATION: Epigastric pain, known pancreatic mass on CT from outside facility COMPARISON: Not available IV CONTRAST: None One or more of the following dose reduction techniques were utilized in effectively lowering the radiation dose for this examination: Automated Exposure Control, Adjustment of the mA and/or kV according to patient size, or Iterative reconstruction. FINDINGS: LUNG BASES: Partially visualized nodular density approximately 3 mm along left major fissure is indeterminant significance. LIVER/BILIARY: Subcentimeter lesions in the liver too small to characterize. While there are lesions which are very low-attenuation favoring benign etiology at least 2 subcentimeter lesions are ill-defined potentially metastatic. Series 201 image 17 right lobe and image 29 left lobe. Cholelithiasis. No pericholecystic inflammatory changes. SPLEEN: Normal. PANCREAS: Ill-defined hypodense lesion in the pancreatic tail approximately 40 x 63 x 30 mm. Soft tissue extension is seen inferiorly tracking along the course of adjacent inferior vasculature. 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 Ill-defined stranding in the adjacent peripancreatic fat. Based on Page 1 of [address] [place] [address] PHONE: [phone] FAX: [phone] Name .................. : ALECIA Gaviria Acct Number.................. : [id number] ROOM. ................. : VT-20 MR Number ................... : [id number] Stay type ............. : E/R Discharge Date......... ... : 11/24/20 Admit Date ......... : 11/23/20 Admit Phys .................... : LEXUS THALIA Date of ....... : 1985 Family Phys ................... : NO PCP Phone .................. : [phone] Age ................................ : 35 Film# .................. .:[id number] Sex ................................. : M Unsigned transcriptions are preliminary reports and do not represent a medical or legal document CT ABD & PELVIS W/ IV ONLY [id number] COMPLETE:11/23/20 23:38 [id number] Reason(s): epigastric pain, known pancreatic [place] [facility] [place] described findings this is most likely to represent malignancy. Central to this point no pancreatic ductal dilatation. ADRENALS: Normal bilaterally. KIDNEYS/: Normal kidneys without hydronephrosis. Grossly normal bladder. No significant abnormalities seen in the reproductive organs. BOWEL/GI: Small to moderate amount of ascites. Numerous soft tissue masses with similar appearance to the pancreatic findings noted above are seen in the omentum and mesentery. No abnormal gastric distention or gross indication of gastric mass. Multiple areas of both nondilated and moderately dilated small bowel loops in the midabdomen. More than one area transition between dilated and nondilated small bowel . These do not show clearly identifiable masses. However, given the extent of mesenteric lesions neoplastic etiology for transitions is still suspected. No pneumatosis. No free air. No diverticulitis or colitis. No demarcated abscess collection. Small fat- containing left inguinal hernia. NODES/RETROPERITONEUM: No adenopathy. No AAA. SKELETAL: Mild degenerative disc change. No skeletal metastases are identified. IMPRESSION: Dilated and nondilated small bowel segments typical of mild to moderate obstruction. Given the findings noted below neoplastic etiology from mesenteric disease is suspected etiology. No abnormal gastric distention or pneumatosis. Page 2 of 3 [facility] [address] [place] [address] PHONE: [phone] FAX: [phone] Name .................. : ALECIA Gaviria Acct Number.................. : [id number] ROOM. ................. : [facility] MR Number ................... : [id number] Stay type ............. : E/R Discharge Date......... ... : 11/24/20 Admit Date ......... : 11/23/20 Admit Phys .................... : LEXUS VÁSQUEZ Date of ....... : 1985 Family Phys ................... : NO PCP Phone .................. : [phone] Age ................................ : 35 Film# .................. .:[id number] Sex ................................. : M Unsigned transcriptions are preliminary reports and do not represent a medical or legal document CT ABD & PELVIS W/ [place] ONLY [id number] COMPLETE:11/23/20 23:38 [id number] Reason(s): epigastric pain, known pancreatic mass on CTon 11/14 in [place] Soft tissue mass in the pancreatic tail which is reported to be a known abnormality. Numerous mesenteric/omental/peritoneal soft tissue lesions and moderate ascites. Findings may represent a pancreatic malignancy with multifocal metastatic disease. Alternate consideration is that the abdominal metastatic disease has tracked superiorly along mesenteric vasculature into re troperitoneum and pancreas although based on pancreas lesion size relative to mesenteric lesions this is considered less likely. Subcentimeter hypodensities in the liver some of which are ill-defined and are potentially metastases. Indeterminate significance to partially included left lower lobe nodule which could simply represent an intrapulmonary node. Metastasis not excluded. CT chest staging can be considered when clinically appropriate. Cholelithiasis. No indication of acute cholecystitis. Electronically Reviewed and Signed By Petar Ramirez MD , 11/24/20 15:29, SCB Transcribe Initials: MANISH, Transcribe Date: 11/24/20 08:58, Dictation Date: Copy for: EMERGENCY DEPT via [employer] Copy for: 710 MED REC DISCHARGED Page 3 of 3 Name Value Range Interpretation Code Description Data Ellen rce(s) Supporting Document(s) ID Date Data Source [id number] 11/23/2020 10:52:00 PM EDT [facility] 1 OrderSheet [facility] Emergency Department [address] [place] [address] Phone #: [phone] ext- [phone] 11/23/2020 22:44 Patient: SHERRIE BYRNE Sex: M : 1985 Age: 35yWEIGHT:83.9 kg (S) HEIGHT:71 inches (S) BMI:25.8ALLERGIES: Sulfa AntibioticsCHIEF COMPLAINT: abdominal painDIAGNOSIS: Intestinal obstruction, Biliary calculusLAB ORDERSOrder Description Priority Entered Acknowledged InitialedCBC w Diff STAT 23:36 11/23/2020 00:10 11/24/2020 Nciolasa Alberts M.D.; R.N.CMP STAT 23:36 11/23/2020 00:10 11/24/2020 Nicolasa Alberts M.D.; R.N.Lipase STAT 23:36 11/23/2020 00:10 11/24/2020 Nicolasa Alberts M.D.; R.N.UA Reflex to UA 23:36 11/23/2020 02:19 11/24/2020ulture Nicolasa Alberts M.D.; R.N.Lactic Acid STAT 23:36 11/23/2020 00:10 11/24/2020 Nicolasa Alberts M.D.; R.N.CPK STAT 23:36 11/23/2020 00:10 11/24/2020 Nicolasa Alberts M.D.; R.N.CRP STAT 23:36 11/23/2020 00:10 11/24/2020 Nicolasa Alberts M.D.; R.N.Troponin-T STAT 23:36 11/23/2020 00:10 11/24/2020 Nicolasa Alberts M.D.; R.N.DIAGNOSTIC STUDY ORDERSOrder Description Priority Entered Acknowledged InitialedCT Abd PEL W/ IV STAT 23:38 11/23/2020 00:10 11/24/2020ontrast Only Nicolasa Alberts(Oxygen?(No)) Nancy; R.NYoshi(IV?(Yes)) 2 OrderSheet [facility] Emergency Department [address] [place] [address] Phone #: ext- [phone] 11/23/2020 22:44 [facility]: [id number] Sex[facility] M : 1985 Age: 35y Reason for Study: epigastric pain, [facility] [place]/[facility]IP/FLUID ORDERSOrder Description Priority Entered Acknowledged InitialedLR IV : Bolus 500 23:37 11/23/2020 00:12 11/24/2020mL, then 150 mL/hr Nicolasa Alberts M.D.; R.N.Morphine IVP 4 mg 23:38 11/23/2020 00:14 11/24/2020(HIGH ALERT Nicolasa AlbertsMEDICATION) Nancy; R.N.Zofran 4 mg IVP X 1 23:38 11/23/2020 00:13 11/24/2020ose: 4 mg (NOW Nicolasa Albertsx1) Nancy; R.N.Protonix IV Push 40 23:38 11/23/2020 00:13 11/24/2020mg (in 10 mL NS, Nicolasa Albertsadminister over at M.DYoshi; R.N.least 2 minutes,NOW x1)GENERAL ORDERSOrder Description Priority Entered Acknowledged InitialedNPO 23:36 11/23/2020 00:10 11/24/2020 Nicolasa Alberts M.D.; R.N.Saline Lock 23:36 11/23/2020 00:10 11/24/2020 Nicolasa Alberts M.D.; R.N.EKG 23:36 11/23/2020 00:10 11/24/2020 Nicolasa Alberts M.D.; R.N.[Electronically signed by Nicolasa Alberts M.D. (03:35 11/24/2020)][Electronically signed by Sade Trevino R.N. (07:01 11/24/2020)][Electronically locked by Sade Trevino R.N. (07:01 11/24/2020)] Name Value Range Interpretation Code Description Data Ellen rce(s) Supporting Document(s) ID Date Data Source [id number] 11/23/2020 10:52:00 PM EDT [facility] 1 Medication Reconciliation Report [facility] Emergency Department [address] [place] [address] Phone #: ext- [phone] 11/23/2020 22:44 Patient: SHERRIE BYRNE Sex: M : 1985 Age: 35yWeight: 83.9 kgHeight/Length: 71 in.BMI: 25.8ALLERGIES: Sulfa AntibioticsThe patient's Home Medications are listed below:CONTINUE TAKING THE FOLLOWING MEDICATIONS: tiZANidine HCl Oral, Has not taken in "a few days", prnThe source(s) of the original Home Medication information:Not obtained.The following Medications were given to the patient in the Emergency Department:LR [IV] IV Fluids bolus 0, then 500 mL/hr, administered: 00:06 11/24/2020Zofran [IVP] IVP 4 mg, administered: 00:08 11/24/2020ROTONIX [IVP] IVP 40 mg, administered: 00:10 11/24/2020Morphine [IVP] IVP 4 mg, administered: 00:14 11/24/2020The following Medications were prescribed to the patient:None. Name Value Range Interpretation Code Description Data Ellen rce(s) Supporting Document(s) ID Date Data Source [id number] 11/23/2020 10:52:00 PM EDT [facility] 1 Medication Administration Record [facility] Emergency Department [address] [place] [address] Phone #: ext- [phone] 11/23/2020 22:44 Patient: SHERIRE BYRNE Sex: M : 1985 Age: 35yWeight: 83.9 kgHeight/Length: 71 inBMI: 25.8ALLERGIES: Sulfa Antibiotics Date/Time Medication Administered Medication OrderedStart LR [IV] LR IV : Bolus 500 mL, then 33149:06 11/24/2020 Dose: IV Fluids mL/hrTina Lonnie Mckenna R.N. Rate: 500 mL/hr---- Dispensed: 1000 mL bagStop Site: #1 left AC03:10 11/24/2020Sade Mckenna R.N.Given MORPHINE [IVP] Morphine IVP 4 mg (HIGH ALERT00:14 11/24/2020 Dose: 4 mg IVP MEDICATION)Sade Mckenna R.N. Site: #1 left ACGiven ZOFRAN [IVP] (ONDANSETRON HCL) Zofran 4 mg IVP X 1 dose: 4 mg00:08 11/24/2020 Dose: 4 mg IVP (NOW x1)Sade Mckenna R.N. Site: #1 left ACGiven PROTONIX [IVP] (PANTOPRAZOLE Protonix IV Push 40 mg (in 10 mL00:10 11/24/2020 SODIUM) NS, administer over at least 2Tina Lonnie Mckenna R.N. Dose: 40 mg IVP minutes, NOW x1) Site: #1 left AC Name Value Range Interpretation Code Description Data Ellen rce(s) Supporting Document(s) ID Date Data Source [id number] 11/23/2020 10:52:00 PM EDT [facility] 1 General Instructions [facility] Emergency Department [address] [place] [address] Phone #: ext- [phone] 11/23/2020 22:44 [id number] Sex: M : 1985 Age: 35yEarly small bowel obstruction associated with intestinal bands / adhesions.Cholelithiasis. No obstruction or cholecystitis.Pancreatic Mass with Metastases.INSTRUCTIONSDrink plenty of fluids. Avoid alcohol. Avoid fatty, fried/greasy, lactose-containing (such as milk, cheeseand ice cream), salty and spicy foods. No alcohol. Do not smoke.(PLEASE TRY TO OBTAIN CARE AT HIGHER LEVEL OF CARE [facility] IN ORDER TO GET QUICKDIAGNOSIS AND QUICK TREATMENT).Warnings: Further evaluation is necessary in order to conduct further tests (ONCOLOGY, SURGERY,ETC.). It is very important to follow up with a healthcare provider.GENERAL WARNINGS: Return or contact your physician immediately if your condition worsens orchanges unexpectedly, if not improving as expected, or if other problems arise. SPECIFICALLY, return ifyou develop pain in the abdomen, pelvis, back or shoulder, fever, vomiting, the inability to keep fluidsdown, blood in vomitus, blood in diarrhea, fainting or lightheadedness.Your Current Medications: Your current home medications have been reviewed.CONTINUE TAKING THE FOLLOWING MEDICATIONS:tiZANidine HCl Oral : prn, Has not taken in "a few days".Follow-up:Return to the emergency department as needed. Follow up with a solar manufacturer's representative and surgeon today.Reason for referral: evaluation and treatment. Summary of care provided to patient.Understanding of the discharge instructions verbalized by patient. Expected course of illness, dischargeinstructions, activity level, diet, follow-up appointment and risks and benefits of treatment reviewed withpatient and understanding verbalized. Agrees to plan of care.AMA warnings: Time of assessment: 02:03 11/24/2020. Oriented to person, place, and time. Givesappropriate answers and rational explanation of refusal of care. No indication for involuntary commitmentis present, signs of psychosis, auditory hallucinations, delusional thinking or suicidal ideations. No slurredspeech, tangential thinking, visual hallucinations or homicidal ideations. Speaks coherently. Abstractthinking intact.Clinical Impression: the patient has the capacity to make decisions regarding the medical care offered.Relevant issues reviewed and discussed with the patient. The suspected diagnosis, based upon theinitiated medical screening exam, is Pancreatic Cancer with metastases and has been discussed with the 2 General Instructions [facility] Emergency Department [address] [place] [address] Phone #: ext- [phone] 11/23/2020 22:44 Patient: SHERRIE BYRNE Sex: M : 1985 Age: 35ypatient. Acknowledges understanding of the reasons for recommendations regarding transfer to othermedical facility. The recommended medical care being refused is Transfer to Higher Level of Care andhas been discussed with the patient. The risks of refusing recommended care that were disclosed andacknowledged are and loss of current lifestyle. Discharge instructions were provided to the patient.REFUSAL OF CARE STATEMENT (patient to review and sign in discharge instructions):I have read this paragraph. I understand that a doctor at [facility] wants to give me certain medicalcare. The doctor explained that care to me, and I understand what that care is. The doctor also explainedto me what could happen to me if I leave here without having that care, and I understand what he said. Iwant to leave this hospital without receiving the recommended care. I know that I am welcome to return [facility] at any time to receive the recommended care or any other care that I may need at any time,regardless of my ability to pay for such care.(Electronically signed by Nicolasa Alberts M.D. 11/24/2020 03:35) Name Value Range Interpretation Code Description Data Ellen rce(s) Supporting Document(s) ID Date Data Source [id number] 11/23/2020 10:52:00 PM EDT [facility] 1 Clinical Report - Nurses [facility] Emergency Department [address] [place] [address] Phone #: ext- [phone] 11/23/2020 22:44 Patient: SHERRIE BYRNE Sex: M : 1985 Age: 35yTRIAGETriage time: 22:45 11/23/2020.Chief Complaint: CHEST PAIN.( reports that it is a recurrent issue. Tonight at 8 pm he was so uncomfortable that he couldn't sleep.). Hehas had nausea. He has had fever ("I feel fevered").Treatment PUBLIC WEIGHER:(Seen at [facility] 2 weeks ago , Saw Dr Richardson this morning. Pancreas problem, fluid retention, gall stones).--23:00 11/23/20 Sade Mckenna R.N.Acuity: LEVEL 2. --23:03 11/23/20 Sade Mckenna R.N.SEPSIS SCREEN: SIRS SCREEN: respiratory rate greater than 20. SEPSIS SCREEN NEGATIVE. Nosuspected or confirmed signs of infection present. --23:05 11/23/20 Sade Mckenna R.N.23:03 11/23/20. BP: 113/71. MAP: 85. HR: 66. RR: 22. O2 saturation: 100%. Temp: 98.7 F. Pain levelnow: 10. --23:05 11/23/20 Sade Mckenna R.N.Weight: 83.9 kg stated. Height/Length: 71 inches Per Patient. BMI: 25.8. --22:45 11/23/20 Sade Guillen R.N.MedicationstiZANidine HCl Oral, as needed (Has not taken in "a few days"). --23:01 11/23/20 Sade Mckenna R.N.AllergiesSulfa Antibiotics. --23:00 11/23/20 Sade Mckenna R.N.ADDITION AL SURGERIES:Appendectomy (Second surgery with a wash out at age 10). --23:02 11/23/20 Sade Mckenna R.N.HistorySOCIAL HX: Never smoker. Occasional alcohol use. No drug use. He was offered HIV testing butdeclined and hepatitis C testing but declined. He has not traveled outside the [place]Infectious disease exposure: The patient was not exposed to C-diff, MRSA, VRE or CRE. (Has not beenvaccinated for COVID).SELF HARM ASSESSMENT: Self harm assessment was performed. The patient answered "no" to thequestion(s) "Do you have thoughts of harming or killing yourself?" and "Have you recently had thoughts 2 Clinical Report - Nurses [facility] Emergency Department [address] [place] [address] Phone #: ext- [phone] 11/23/2020 22:44 Patient: SHERRIE BYRNE Sex: M : 1985 Age: 35y about harming or killing others?". ABUSE ASSESSMENT: No report of abuse. FALL RISK ASSESSMENT: Fall risk assessment completed. Risk factors identified include severe pain. Fall interventions initiated. Bed in low position. Brakes on. --23:03 11/23/20 Sade Mckenna R.N.PHYSICAL MHAVJLEPDN60:20 11/23/20. Ambulatory to room.GENERAL / NEURO / PSYCH: Appears in pain and anxious.RESPIRATORY: Respirations not labored.CVS: Normal sinus rhythm noted.GI / : The patient has had nausea. No emesis noted.EXTREMITIES: No lower extremity edema.SKIN: Skin is diaphoretic. --00:21 11/24/20 Sade Mckenna R.N.NURSING PROGRESS NOTES22:45 11/23/2020 Site #1 started via IV in the left antecubital space with an 20g angiocath, with aseptictechnique; one attempt. Blood drawn: rainbow set (by NIESHA FUNG). --00:11 11/24/20 Sade Mckenna R.N. 00:06 11/24/2020 Started bag #1 1000 mL IV Fluids LR; at 500 mL/hr via site #1 via IV pump. Allergies verified and confirmed 5 rights. IV patency established. IV site checked: no pain, redness, or swelling. IV flushed thoroughly pre- and post-medication administration. Information reviewed with patient including reason for taking this medication. Verbalizes understanding. --00:12 11/24/20 Sade Mckenna R.N. 00:08 11/24/2020 Zofran (Ondansetron HCl) IVP 4 mg given over 2 minute(s) via site #1. Allergies verified and confirmed 5 rights. IV patency established. IV site checked: no pain, redness, or swelling. IV flushed thoroughly pre- and post-medication administration. IVP given by RN. Information reviewed with patient including reason for taking this medication. Verbalizes understanding. --00:13 11/24/20 Sade Mckenna R.N. 00:10 11/24/2020 PROTONIX (Pantoprazole Sodium) IVP 40 mg given over 3 minute(s) via site #1. Allergies verified and confirmed 5 rights. IV patency established. IV site checked: no pain, redness, or swelling. IV flushed thoroughly pre- and post-medication administration. IVP given by RN. Information reviewed with patient including reason for taking this medication. Verbalizes understanding. --00:13 11/24/20 Sade Mckenna R.N. 00:14 11/24/2020 Morphine IVP 4 mg given over 2 minute(s) via site #1. Allergies verified and confirmed 5 rights. IV patency established. IV site checked: no pain, redness, or swelling. IV flushed thoroughly pre- and post-medication administration. IVP given by RN. Information reviewed with patient including sedative warning. Verbalizes understanding. --00:14 11/24/20 Sade Mckenna R.N. Call light placed in reach. Bed placed in lowest position. Brakes of bed on. --00:21 11/24/20 Sade Mckenna R.N. 3 Clinical Report - Nurses [facility] Emergency Department [address] [place] [address] Phone #: ext- [phone] 11/23/2020 22:44 Patient: SHERRIE BYRNE [facility]#: [id number] Sex: M : 1985 Age: 35y Patient transported to [place] by wheelchair with lead slot technician. --00:21 11/24/20 Sade Mckenna R.N. 23:00 11/23/20. residential monitor, NIBP monitor and pulse oximeter placed on patient; monitor alarms on; see monitor strips (See printout for frequent v/s). --02:14 11/24/20 Sade Mckenna R.N. 00:15 11/24/20. BP: 139/98. MAP: 111. HR: 68. RR: 12. O2 saturation: 100%. --02:17 11/24/20 Sade Mckenna R.N. 01:15 11/24/20. BP: 154/97. MAP: 116. HR: 69. RR: 14. O2 saturation: 98%. --02:17 11/24/20 Sade Mckenna R.N. 02:00 11/24/20. BP: 161/98. MAP: 119. HR: 66. RR: 16. O2 saturation: 100%. --02:19 11/24/20 Sade Mckenna R.N. The patient is calm and resting quietly. Overall patient status is improved. ( Provider in to speak with pt regarding Finding of todays testing. IV fluids infusing. Disk made to send with pt.). --02:19 11/24/20 Sade Mckenna R.N. 03:10 11/24/2020 IV Fluids LR via IV site #1 Discontinued: discontinued upon discharge. Total amount infused: 850 mL. --03:25 11/24/20 Sade Mckenna R.N.DISPOSITION / DISCHARGE Departure time: 03:11/24/2020. C ondition at departure: stable. No learning barriers present. The patient left the Emergency Department against medical advice. The patient appears to be alert, oriented x4, coherent and in no acute distress. He stated is leaving due to personal reasons. He was informed of the risks of leaving and verbalized understanding of these risks. Patient signed form prior to leaving. --03:11/24/20 Sade Mckenna R.N. 03:15 11/24/20. BP: 150/100. MAP: 116. HR: 69. RR: 16. O2 saturation: 97%. Temp: 99.1 F. Pain level now: 0/10. --03:21 11/24/20 Sade Mckenna R.N. 03:10 11/24/2020 Site #1 removed upon discharge. Bandage applied. --03:11/24/20 Sade Mckenna R.N.Locked/Released at 11/24/2020 07:01 by Sade Mckenna R.N. Name Value Range Interpretation Code Description Data Ellen rce(s) Supporting Document(s) ID Date Data Source [id number] 11/23/2020 10:52:00 PM EDT [facility] 1 Clinical Report - Physicians/Mid Levels [facility] Emergency Department [address] [place] [address] Phone #: ext- [phone] 11/23/2020 22:44 Patient: SHERRIE BYRNE Sex: M : 1985 Age: 35y Time Seen: 23:01 11/23/2020. Arrived- By private vehicle. Historian- patient. Disposition decision: 03:06 11/24/2020.HISTORY OF PRESENT ILLNESS Chief Complaint: ABDOMINAL PAIN. This started 14 days ago and is still present and now worse. (today). It was gradual in onset and has been constant. It is described as "pain" and sharp and it is described as located in the epigastric area and in the upper abdomen. At its maximum, severity described as severe and 10 / 10. When seen in the E.D., severity described as severe and 10 / 10. Modifying factors- worsened by movement and food. Not relieved by anything. The patient has had nausea. No loss of appetite, vomiting or diarrhea. (pt lives 1 hr from here, past [place], was seen at [facility] ER on 11/14 for abdominal pain, had CTAP w IV that showed possible pancreatic neoplasm w mets and gallstones; pt w as referred to Dr. Richardson today who told him about results and was not sure; pt visited a friend here in [facility] then pain was too bad so came here). No recent travel. Similar symptoms previously. ( [facility] Recent medical care: The patient was seen recently by a health care provider. ( today at Dr. Richardson's office, surgeon in [place]).REVIEW OF SYSTEMSNo constipation, black stools, hematemesis, difficulty with urination or pain with urination. No urinaryfrequency, bloody stools, fever, headache or sore throat. No blurred vision, chest pain, difficulty breathing,cough or joint pain. No skin rash, chills or back pain. The patient has not had weight loss. sweating.All other systems reviewed and are negative.PAST HISTORYSee nurses notes. Problems: Back Pain. Pancreatic Mass. Additional Surgeries: Appendectomy. (Second surgery with a wash out at age 10). Medications: tiZANidine HCl Oral, as needed (Has not taken in "a few days"). Allergies: Sulfa Antibiotics. 2 Clinical Report - Physicians/Mid Levels [facility] Emergency Department [address] [place] [address] Phone #: [phone] ext- [phone] 11/23/2020 22:44 Patient: SHERRIE BYRNE Sex: M : 1985 Age: 35ySOCIAL HISTORYNever smoker. Occasional alcohol use. No drug use. No recent travel.ADDITIONAL NOTESThe nursing notes have been reviewed with agreement regarding the chief complaint, HPI, ROS, PMH andpatient medications and allergies.PHYSICAL EXAMVital Signs: 11/23/2020 23:03 BP: 113/71. MAP: 85. HR: 66. RR: 22. O2 saturation: 100%. Temp: 98.7 F.Pain level now: 12/06. Have been reviewed. Oxygen saturation normal.Appearance: Alert. Oriented X3. Appears to be in pain. Patient in moderate distress. Distressappears due to pain. (mild sweating).Eyes: Pupils equal, round and reactive to light. Eyes normal inspection.ENT: Nose normal. Pharynx normal.Neck: Normal inspection. Neck supple.CVS: Normal heart rate and rhythm. Heart sounds normal. Pulses normal.Respiratory: No respiratory distress. Painless inspiration. Breath sounds normal. Chest nontender.Abdomen: Soft. Moderate tenderness in the right upper quadrant, epigastric area, left upper quadrantand periumbilical area with guarding present. Bowel sounds normal. No organomegaly. No mass.Distention with tenderness to palpation. No tympany to percussion or dullness to percussion. Femoralpulses equal.Back: Normal inspection. No CVA tenderness.Skin: Skin warm and dry. Normal skin color. No rash. Normal skin turgor.Extremities: Extremities exhibit normal ROM. No lower extremity edema.Neuro: Oriented X 3. No motor deficit. No sensory deficit.LABS, X-RAYS, AND EKGAbdominal CT: [facility] Call: [phone] Online chat: [email or web address] Name: SHERRIE BYRNE (Age): 1985 35 Gender: MDate of Exam: 11/24/2020 [id number] Physician: NICOLASA ALBERTS # of Images: [id number] As: CT ABDOMEN/PELVIS WPROCEDURE INFORMATION:Exam: CT Abdomen And Pelvis With ContrastExam date and time: 11/24/2020 12:28 AMAge: 35 years oldClinical indication: Abdominal pain; Patient HX: Epigastric pain, known pancreatic mass MA on CTon 11/14 in at other facilityTECHNIQUE:Imaging protocol: Computed tomography of the abdomen and pelvis with contrast. 3 Clinical Report - Physicians/Mid Levels [facility] Emergency Department [address] [place] [address] Phone #: ext- [phone] 11/23/2020 22:44 Patient: SHERRIE BYRNE Sex: M : 1985 Age: 35yContrast material: ISOVUE 370; Contrast volume: 75 ml; Contrast route: INTRAVENOUS (IV);COMPARISON:No relevant prior studies available.FINDINGS:Lungs: 3 mm left lower lobe pulmonary nodule.Liver: 6 mm hypodensity in the anterior left lobe of the liver is indeterminate but could representmetastatic disease given findings elsewhere on this study. Few tiny hypodensities elsewhere in theliver are too small to characterize.Gallbladder and bile ducts: Several galls tones, consider ultrasound.Pancreas: 3.9 x 2.8 hypodensity in the tail of the pancreas consistent with known pancreatic massper history.Spleen: Normal. No splenomegaly.Adrenal glands: Normal. No mass.Kidneys and ureters: Normal. No hydronephrosis.Stomach and bowel: Loops of fluid-filled small bowel measure up to 3.8 cm consistent with somedegree of mid small bowel obstruction. Soft tissue nodules in the mid to lower mesentery mayrepresent 1 or more areas of transition.Appendix: No evidence of appendicitis.Intraperitoneal space: 4.2 x 1.9 soft tissue mass in the left lateral abdominal mesenteric fat. Multipleadditional smaller mesenteric/peritoneal soft tissue nodules concerning for metastatic disease. Smallamount of free fluid in the pelvis.Vasculature: Unremarkable. No abdominal aortic aneurysm.Lymph nodes: Unremarkable. No enlarged lymph nodes.Urinary bladder: Unremarkable as visualized.Reproductive: Unremarkable as visualized.Bones/joints: Unremarkable. No acute fracture.Soft tissues: Small left inguinal hernia contains fat.SHERRIE BYRNE Preliminary Radiology ReportQUALITY ASSURANCE (QA) DISCREPANCY?If there is a discrepancy between the preliminary and final interpretation, please notify [facility] [email or web address] you do not have access to our QA portal, call our QA team at [phone] STATEMENTThis report is intended only for the use of the referring physician, and only in accordance with law, If youreceived this in error, call [phone] 2 of 2IMPRESSION:1. Dilated small bowel consistent with some degree of mid small bowel obstruction, soft tissuemasses in the mesentery may represent 1 or more areas of transition.2. Known pancreatic mass.3. Multiple soft tissue masses throughout the abdominal and pelvic fat concerning for metastaticdisease.4. Gallstones, consider ultrasound.5. Hypodensity in the left lobe of the liver possible metastatic disease. 4 Clinical Report - Physicians/Mid Levels [facility] [address] [place] [address] Phone #: ext- [phone] 11/23/2020 22:44 Patient: SHERRIE BYRNE Sex: M : 1985 Age: 35y6. Left lower lobe pulmonary nodule. Follow-up as clinically indicated.Thank you for allowing us to participate in the care of your patient.Dictated and Authenticated by: Nikita Cardoza MD11/24/2020 1:44 AM Eastern Time ([facility]). Study type: abdomen and pelvis. Abdominal CTperformed with IV contrast. The study was interpreted by the radiologist.Laboratory Tests: Laboratory tests have been ordered, with results reviewed and considered in themedical decision making process.CBC w Diff: (SILVERIO: 11/23/2020 22:55) ( MsgRcvd 11/23/2020 23:50) Final results Test Result Flag Units (Reference) CBC W/AUTOMATED DIFF COMPLETE BLOOD COUNT WBC 8.6 10/uL (4.2 - 11.0) RBC 5.07 10/uL (4.50 - 6.30) HEMOGLOBIN 15.3 g/dL (14.0 - 16.0) HEMATOCRIT 45.3 % (41.0 - 51.0) MCV 89.3 fL (80.0 - 94.0) MCH 30.2 pg (27.0 - 34.0) MCHC 33.8 g/dL (31.0 - 36.0) RDW 12.3 % (11.5 - 14.8) PLATELETS 317 10/uL (150 - 450) MPV 8.9 fL (7.4 - 10.4) NEUT 70.1 % (37.0 - 80.0) LYMPH 19.8 L % (25.0 - 40.0) MONO 6.0 % (3.0 - 8.0) EOS 3.5 % (0.0 - 7.0) BASO 0.3 % (0.0 - 2.0) %IG 0.3 H % (0.0 - 0.0) %NRBC 0.0 % (0.0 - 0.0) #NEUT 6.03 10/uL (2.00 - 6.90) #LYMPH 1.71 10/uL (0.60 - 3.40) #MONO 0.52 10/uL (0.00 - 0.90) #EOS 0.30 10/uL (0.00 - 0.70) #BASO 0.03 10/uL (0.00 - 0.20) #IG 0.03 10/uL (0.00 - 0.10) #NRBC 0.00 10/uL (0.00 - 0.00) MANUAL DIFF NOT INDICATED RBC MORPH NOT INDICATEDCMP: (SILVERIO: 11/23/2020 22:55) ( MsgRcvd 11/24/2020 00:08) Final results Test Result Flag Units (Reference) COMPREHENSIVE METABOLIC PANEL COMPREHENSIVE METABOLIC PANEL SODIUM 140 mEq/L (134 - 153) POTASSIUM 4.0 mEq/L (3.6 - 5.0) CHLORIDE 102 mEq/L (98 - 107) CO2 26 MEQ/L (22 - 30) GLUCOSE 109 H MG/DL (70 - 99) BUN 8 MG/DL (7 - 21) CREATININE 0.9 MG/DL (0.7 - 1.5) BUN/CREAT 9 (8 - 27) TOTAL PROTEIN 7.2 G/DL (6.3 - 8.2) ALBUMIN 5.2 H G/DL (3.9 - 5.0) GLOBULIN 2.0 L GM/DL (2.4 - 3.2) A/G RATIO 2.6 H (0.8 - 2.0) CALCIUM 9.6 MG/DL (8.4 - 10.2) 5 Clinical Report - Physicians/Mid Levels [facility] Emergency Department [address] [place] [address] Phone #: ext- [phone] 11/23/2020 22:44 Patient: SHERRIE BYRNE Sex: M : 1985 Age: 35y TOTAL BILI 1.5 H MG/DL (0.2 - 1.3) ALKALINE PHOS 89 U/L (38 - 126) SGOT/AST 13 U/L (5 - 40) SGPT/ALT 13 U/L (7 - 56) ANION GAP 12.0 mmol/L (8.0 - 16.0) AGE 35 yrs NON-AA GFR >60 mL/min AFR AMER GFR > 60 mL/min Male GFR Interprentation 20-49 yrs >60 mL/min Cjkzcp02-36 yrs >56 mL/min Normal 60-69 yrs >49 mL/min Normal 70-79yrs>42 mL/min Normal 80 and above >35 mL/min Normal Female GFRInterpretation 20-39 yrs >60 mL/min Normal 40-49 yrs >58 mL/minNormal 50-59 yrs >51 mL/min Normal 60-69 yrs >45 mL/min Hunjsl57-39 yrs >39 mL/min Normal 80 and above >32 mL/min NormalLipase: (SILVERIO: 11/23/2020 22:55) ( [facility] 11/24/2020 00:08) Final results Test Result Flag Units (Reference) LIPASE 30 U/L (13 - 60)UA REFLEX TO UA CULTURE: (SILVERIO: 11/24/2020 01:05) ( [facility] 11/24/2020 01:26) Final results Test Result Flag Units (Reference) UA REFLEX TO UA CULTURE URINALYSIS SOURCE R COLOR yellow (NORMAL: Yello CLARITY clear (NORMAL: Clear SPEC GRAVITY 1.005 (1.001 - 1.030 pH 5 (5 - 9) GLUCOSE NORM (NORMAL: Negat BILIRUBIN NEG (NORMAL: Negat KETONE NEG (NORMAL: Negat PROTEIN 15 (NORMAL: Negat NITRITE NEG (NORMAL: Negat BLOOD NEG (NORMAL: Negat LEUK EST NEG (NORMAL: Negat UROBILINOGEN NOR (less than 1.0 MICROSCOPIC See Below WBC None Seen (NORMAL: NONE RBC 0 - 1 (NORMAL: NONE EPITHELIAL FEW (NORMAL: NONELactic Acid: (SILVERIO: 11/23/2020 22:55) ( [facility] 11/23/2020 23:50) Final results Test Result Flag Units (Reference) LACTIC ACID 1.3 MMOL/L (0.2 - 2.2)CPK: (SILVERIO: 11/23/2020 22:55) ( [facility] 11/24/2020 00:09) Final results Test Result Flag Units (Reference) CPK 73 U/L (30 - 170)CRP: (SILVERIO: 11/23/2020 22:55) ( [facility] 11/24/2020 00:09) Final results Test Result Flag Units (Reference) CRP-HS 2.54 MG/L (1.00 - 3.00) CDC/S HS-CRP CUT-OFF: RELATIVE RISK: <1.0 mg/LLow 1.0 - 3.0 mg/L Average >3.0 mg/LHigh Optimally, the average of HS-CRP results repeated two weeks apart should be used for 6 Clinical Report - Physicians/Mid Levels [facility] Emergency Department [address] [place] [address] Phone #: ext- [phone] 11/23/2020 22:44 Patient: SHERRIE BYRNE Sex: M : 1985 Age: 35y risk assessment. Troponin-T: (SILVERIO: 11/23/2020 22:55) ( MsgRcvd 11/24/2020 00:08) Final results Test Result Flag Units (Reference) TROPONIN T <0.01 NG/ML (0.00 - 0.10) TROPONIN T0.1 ng/ml Recommended as the clinical threshold value Ivon Dunlap.PROGRESS AND PROCEDURESCourse of Care: 00:07 11/24/20. pt is requesting to sign a MOLST form to have DNR/DNI status; pt stateshe is sure 110% to sign this tonight; pt understands pros and cons of this signing 02:08 11/24/20. workup all in and reviewed and nml, incl. WBC, CMP, lipase, lactic, CPK, CRP, troponin; CTAP w IV results in and reviewed and worrisome for metastatic pancreatic neoplasm, w SBO gallstones (see report); these sad findings were shared w patient and transfer was offered w the fact that it can take hours and he can end up anywhere since most hospitals in [facility] are full because of Covid and Vaccine mandate; pt prefers to sign out AMA and he will have his father drive him to [place] in the morning; pt is capable of deciding AMA; will wait for morphine to wear off before he leaves the premises; pt understands d/c instructions and urgency to get this evaluated since 1st s imilar CT was at [facility] on 11/24/20. Patient counseled in person regarding the patient's stable condition, test results, diagnosis and need for follow-up. Patient agrees with plan of care. Disposition: Condition: stable. Discharge decision based on the following: patient's condition is stable; patient's condition is improved; patient is ambulatory; patient is active; patient drinking fluids; patient eating; patient's pain is controlled; patient's exam is improved; moderately abnormal test results; improving condition on multiple repeat evaluations; social support is good; transportation is available; follow-up is available; clinical impression is consistent with outpatient treatment.CLINICAL IMPRESSION Early small bowel obstruction associated with intestinal bands / adhesions. Cholelithiasis. No obstruction or cholecystitis. Pancreatic Mass with Metastases.INSTRUCTIONS Drink plenty of fluids. Avoid alcohol. Avoid fatty, fried/greasy, lactose-containing (such as milk, cheese and ice cream), salty and spicy foods. No alcohol. Do not smoke. (PLEASE TRY TO OBTAIN CARE AT HIGHER LEVEL OF CARE FAWN IN ORDER TO GET QUICK 7 Clinical Report - Physicians/Mid Levels [facility] Emergency Department [address] [place] [address] Phone #: ext- [phone] 11/23/2020 22:44 Patient: SHERRIE BYRNE Sex: M : 1985 Age: 35yDIAGNOSIS AND QUICK TREATMENT).Warnings: Further evaluation is necessary in order to conduct further tests (ONCOLOGY, SURGERY,ETC.). It is very important to follow up with a healthcare provider.GENERAL WARNINGS: Return or contact your physician immediately if your condition worsens orchanges unexpectedly, if not improving as expected, or if other problems arise. SPECIFICALLY, return ifyou develop pain in the abdomen, pelvis, back or shoulder, fever, vomiting, the inability to keep fluidsdown, blood in vomitus, blood in diarrhea, fainting or lightheadedness.Your Current Medications: Your current home medications have been reviewed.CONTINUE TAKING THE FOLLOWING MEDICATIONS:tiZANidine HCl Oral : prn, Has not taken in "a few days".Follow-up:Return to the emergency department as needed. Follow up with a solar manufacturer's representative and surgeon today.Reason for referral: evaluation and treatment. Summary of care provided to patient.Understanding of the discharge instructions verbalized by patient. Expected course of illness, dischargeinstructions, activity level, diet, follow-up appointment and risks and benefits of treatment reviewed withpatient and understanding verbalized. Agrees to plan of care.AMA warnings: Time of assessment: 02:03 11/24/2020. Oriented to person, place, and time. Givesappropriate answers and rational explanation of refusal of care. No indication for involuntary commitmentis present, signs of psychosis, auditory hallucinations, delusional thinking or suicidal ideations. No slurredspeech, tangential thinking, visual hallucinations or homicidal ideations. Speaks coherently. Abstractthinking intact.Clinical Impression: the patient has the capacity to make decisions regarding the medical care offered.Relevant issues reviewed and discussed with the patient. The suspected diagnosis, based upon theinitiated medical screening exam, is Pancreatic Cancer with metastases and has been discussed with thepatient. Acknowledges understanding of the reasons for recommendations regarding transfer to othermedical facility. The recommended medical care being refused is Transfer to Higher Level of Care andhas been discussed with the patient. The risks of refusing recommended care that were disclosed andacknowledged are and loss of current lifestyle. Discharge instructions were provided to the patient.REFUSAL OF CARE STATEMENT (patient to review and sign in discharge instructions):I have read this paragraph. I understand that a doctor at this hospital wants to give me certain medicalcare. The doctor explained that care to me, and I understand what that care is. The doctor also explainedto me what could happen to me if I leave here without having that care, and I understand what he said. Iwant to leave this [facility] without receiving the recommended care. I know that I am welcome to return [facility] at any time to receive the recommended care or any other care that I may need at any time,regardless of my ability to pay for such care. 8 Clinical Report - Physicians/Mid Levels [facility] Emergency Department [address] [place] [address] Phone #: ext- [phone] 11/23/2020 22:44 Patient: SHERRIE BYRNE Sex: M : 1985 Age: 35y(Electronically signed by Nicolasa Alberts M.D. 11/24/2020 03:35) Name Value Range Interpretation Code Description Data Ellen rce(s) Supporting Document(s) ID Date Data Source [id number] 11/24/2020 01:26:00 AM EDT [facility] Name Value Range Interpretation Code Description Data Ellen rce(s) Supporting Document(s) UA REFLEX TO UA CULTURE [facility] NORMAL: Yellow [facility] CLARITY clear NORMAL: Clear [facility] Specific gravity of Urine by Test strip 1.005 1.001 - 1.030 [facility] pH 5 5 - 9 [facility] Glucose [Mass/volume] in Urine by Test strip NORM NORMAL: Negat [facility] Bilirubin.total [Presence] in Urine by Test strip NEG NORMAL: Negative [facility] Ketones [Presence] in Urine by Test strip NEG NORMAL: Negative [facility] Protein [Mass/volume] in Urine by Test strip 15 NORMAL: Negat [facility] Nitrite [Presence] in Urine by Test strip NEG NORMAL: Negative [facility] BLOOD NEG NORMAL: Negative [facility] Leukocyte esterase [Presence] in Urine by Test strip NEG VLAD L: Negative [facility] Urobilinogen [Mass/volume] in Urine by Test strip NOR less joleen n 1.0 mg/dL [facility] MICROSCOPIC See Below [facility] ital WBC None Seen NORMAL: NONE SEEN [facility] Erythrocytes [#/volume] in Urine by Test strip 0 - 1 NORMAL: NON E SEEN [facility] EPITHELIAL FEW NORMAL: NONE SEEN [facility] Hospital ID Date Data Source [id number] 11/24/2020 12:09:00 AM EDT [facility] Name Value Range Interpretation Code Description Data Ellen rce(s) Supporting Document(s) C reactive protein [Mass/volume] in Serum or Plasma by High sensitivity method 2.54 MG/L 1.00 - 3.00 [facility] HS-CRP CUT-OFF: RELATIVE RISK: <1.0 mg/L Low 1.0 - 3.0 mg/L Average >3.0 mg/L High Optimally, the average of HS-CRP results repeated two weeks apart should be used for risk assessment. ID Date Data Source [id number] 11/24/2020 12:08:00 AM EDT [facility] Name Value Range Interpretation Code Description Data Ellen rce(s) Supporting Document(s) Creatine kinase [Enzymatic activity/volume] in Serum or Plasma 7 3 U/L 30 - 170 [facility] ID Date Data Source [id number] 11/24/2020 12:08:00 AM T [facility] Name Value Range Interpretation Code Description Data Ellen rce(s) Supporting Document(s) Lipase [Enzymatic activity/volume] in Serum or Plasma 30 U/L 13 - 60 [facility] ID Date Data Source [id number] 11/24/2020 12:08:00 AM T [facility] Name Value Range Interpretation Code Description Data Ellen rce(s) Supporting Document(s) COMPREHENSIVE METABOLIC PANEL [facility] COMPREHENSIVE METABOLIC PANEL Sodium [Moles/volume] in Serum or Plasma 140 mEq/L 134 - 153 [facility] Potassium [Moles/volume] in Serum or Plasma 4.0 mEq/L 3.6 - 5.0 [facility] Chloride [Moles/volume] in Serum or Plasma 102 mEq/L 98 - 107 [facility] Carbon dioxide, total [Moles/volume] in Serum or Plasma 26 MEQ/L 22 - 30 [facility] Glucose [Mass/volume] in Serum or Plasma 109 MG/DL 70 - 99 H [facility] BUN 8 MG/DL 7 - 21 [facility] Creatinine [Mass/volume] in Serum or Plasma 0.9 MG/DL 0.7 - 1.5 [facility] BUN/CREAT 9 8 - 27 [facility] al Protein [Mass/volume] in Serum or Plasma 7.2 G/DL 6.3 - 8.2 [facility] Albumin [Mass/volume] in Serum or Plasma 5.2 G/DL 3.9 - 5.0 H [facility] Globulin [Mass/volume] in Serum by calculation 2.0 GM/DL 2.4 - 3.2 L [facility] A/G RATIO 2.6 0.8 - 2.0 H [facility] al Calcium [Mass/volume] in Serum or Plasma 9.6 MG/DL 8.4 - 10.2 [facility] Bilirubin.total [Mass/volume] in Serum or Plasma 1.5 MG/DL 0.2 - 1.3 H [facility] Alkaline phosphatase [Enzymatic activity/volume] in Serum or Plasma 89 U/L 38 - 126 [facility] Aspartate aminotransferase [Enzymatic activity/volume] in Serum or Plasma 13 U/L 5 - 40 [facility] Alanine aminotransferase [Enzymatic activity/volume] in Seru m or Plasma 13 U/L 7 - 56 [facility] Anion gap 3 in Serum or Plasma 12.0 mmol/L 8.0 - 16.0 [facility] AGE 35 yrs [facility] al NON-AA GFR >60 mL/min [facility] ital AFR AMER GFR >60 mL/min [facility] Ho spital Male GFR In terprentation 20-49 yrs >60 mL/min Normal 50-59 yrs >56 mL/min Normal 60-69 yrs >49 mL/min Normal 70-79yrs >42 mL/min Normal 80 and above >35 mL/min Normal Female GFR Interpretation 20-39 yrs >60 mL/min Normal 40-49 yrs >58 mL/min Normal 50-59 yrs >51 mL/min Normal 60-69 yrs >45 mL/min Normal 70-79 yrs >39 mL/min Normal 80 and above >32 mL/min Normal ID Date Data Source [id number] 11/24/2020 12:08:00 AM EDT [facility] Name Value Range Interpretation Code Description Data Ellen rce(s) Supporting Document(s) TROPONIN T <0.01 NG/ML 0.00 - 0.10 [facility]spital TROPONIN T0.1 ng/ml Recommended as the c linical threshold value Ivon Mcclain. ID Date Data Source [id number] 11/23/2020 11:50:00 PM EDT [facility] Name Value Range Interpretation Code Description Data Ellen rce(s) Supporting Document(s) CBC W/AUTOMATED DIFF [facility] COMPLETE BLOOD COUNT Leukocytes [#/volume] in Blood by Automated count 8.6 10^3/uL 4.2 - 1 1.0 [facility] Erythrocytes [#/volume] in Blood by Automated count 5.07 10^6/uL 4. 50 - 6.30 [facility] Hemoglobin [Mass/volume] in Blood 15.3 g/dL 14.0 - 16.0 [facility] Hematocrit [Volume Fraction] of Blood by Automated count 45.3 % 4 1.0 - 51.0 [facility] Erythrocyte mean corpuscular volume [Entitic volume] by Auto mated count 89.3 fL 80.0 - 94.0 [facility] Erythrocyte mean corpuscular hemoglobin [Entitic mass] by Automated count 30.2 pg 27.0 - 34.0 [facility] Erythrocyte mean corpuscular hemoglobin concentration [Mass/volume] by Automated count 33.8 g/dL 31.0 - 36.0 [facility] Erythrocyte distribution width [Ratio] by Automated count 12.3 % 11.5 - 14.8 [facility] Platelets [#/volume] in Blood by Automated count 317 10^3/uL 150 - 45 0 [facility] Platelet mean volume [Entitic volume] in Blood by Automated count 8.9 fL 7.4 - 10.4 [facility] Neutrophils/100 leukocytes in Blood by Automated count 70.1 % 37. 0 - 80.0 [facility] Lymphocytes/100 leukocytes in Blood by Manual count 19.8 % 25.0 - 40.0 L [facility] Monocytes/100 leukocytes in Blood by Automated count 6.0 % 3.0 - 8.0 [facility] Eosinophils/100 leukocytes in Blood by Automated count 3.5 % 0.0 - 7.0 [facility] Basophils/100 leukocytes in Blood by Automated count 0.3 % 0.0 - 2.0 [facility] %IG 0.3 % 0.0 - 0.0 H [facility] al %NRBC 0.0 % 0.0 - 0.0 [facility] al Neutrophils [#/volume] in Blood by Automated count 6.03 10^3/uL 2.00 - 6.90 [facility] Lymphocytes [#/volume] in Blood by Automated count 1.71 10^3/uL 0.60 - 3.40 [facility] Monocytes [#/volume] in Blood by Automated count 0.52 10^3/uL 0.00 - 0.90 [facility] Eosinophils [#/volume] in Blood by Automated count 0.30 10^3/uL 0.00 - 0.70 [facility] Basophils [#/volume] in Blood by Automated count 0.03 10^3/uL 0.00 - 0.20 [facility] #IG 0.03 10^3/uL 0.00 - 0.10 [facility] #NRBC 0.00 10^3/uL 0.00 - 0.00 [facility] MANUAL DIFF NOT INDICATED [facility] RBC MORPH NOT INDICATED [facility] spital ID Date Data Source [id number] 11/23/2020 11:50:00 PM EDT [facility] Name Value Range Interpretation Code Description Data Ellen rce(s) Supporting Document(s) Lactate [Moles/volume] in Serum or Plasma 1.3 MMOL/L 0.2 - 2.2 [facility] Procedure Social History No Information Vital Signs ID Date Data Source UNK Name Value Range Interpretation Code Description Data Source(s) Body height 70 [in_i] 70 [in_i] [facility]) 5'10" Systolic blood pressure 124 mm[Hg] 124 mm[Hg] M [facility] ([facility]) Body surface area Derived from formula 2.04 m2 2.04 m2 [facility] ([facility]) Diastolic blood pressure 82 mm[Hg] 82 mm[Hg] [facility] ([facility]) Body temperature 98.2 [degF] 98.2 [degF] [facility] ([facility], ) Body weight 189.38 [lb_av] 189.38 [lb_av] [facility] ([facility]) Body mass index (BMI) [Ratio] 27.2 kg/m2 27.2 k g/m2 [facility] [place] body weight 166 [lb_av] 166 [lb_av] [facility] T ([facility]) Body weight 85.900 kg 85.900 kg [facility] ([facility]) Body temperature 97.5 [degF] 97.5 [degF] [facility] ([facility]) Body mass index (BMI) [Ratio] 26.7 kg/m2 26.7 k g/m2 [facility] ([facility]) Body height 72.25 [in_i] 72.25 [in_i] [facility] ([facility] ) 6'0.25" Body weight 198.50 [lb_av] 198.50 [lb_av] [facility] T ([facility]) ID Date Data Source [id number] 12/03/2020 12:10:15 PM EDT [facility] Name Value Range Interpretation Code Description Data Source(s) WEIGHT RECORDED 185 lb 185 lb [facility] Body height Measured 71 in 71 in [facility]
--- OUTSIDE RECORDS SUMMARY | 2020-12-15 04:33 | CCD ---
Author Author [facility] Organization [facility] Address Unknown Phone Unavailable Care Team Providers Care Perforating Machine Operator Name Role Phone Johny NEWBY MD Unavailable [...] Unavailable Unavailable Ricky, Alejo DO Unavailable Unavailable Rciky, Alejo DO Unavailable Unavailable Ricky, Alejo DO [...] Unavailable Ricky, Alejo DO Unavailable Unavailable Ricky, Aeljo DO Unavailable Unavailable Ricky, Alejo DO Unavailable [...] Unavailable Unavailable Dana Betts MD Unavailable Unavailable Dnaa Betts MD Unavailable Unavailable Dana Betts MD [...] is protected by Article 27-F of the [facility] Public Health law. If you continue you may have access to information: Regarding HIV / AIDS; Provided by facilities licensed or operated by the [facility] Office of Mental Health; or Provided by the [facility] Office for People With Developmental Disabilities. If such information is present, then the following [facility] mandated warning applies: This information has been [...] law may result in a fine or correction sentence or both. A general authorization for the release of medical or other information is NOT sufficient authorization for further disc losure. Allergies and Adverse Reactions Type Description Substance Reaction Status Data Source(s ) Propensity to adverse reactions SULFA ANTIBIOTICS SULFA ANTIBIOTICS O ther [facility] Family History Family Member Name Family Member Gender Family Member Status Date o f Status Description Data Source(s) Unknown Male Problem [facility] ([facility]) Encounters Encounter Providers Location Date Indications Data Source(s ) Outpatient Attender: Irwin Matthews MDReferrer: FANI ELLINGTON MD 12/21/2020 12:00:00 AM [facility] Outpatient Attender: Irwin Matthews MDReferrer: FANI ELLINGTON MD 12/16/2020 12:00:00 AM [facility] Outpatient Attender: Kaleigh Hilario 12/15/2020 12:00:00 A M [facility] Outpatient Attender: FANI ELLINGTON MD 12/09/2020 12:00: 00 AM [facility] Malignant neoplasm of pancreas, unspecified [facility] Malignant neoplasm of pancreas, unspecif ied Outpatient Attender: FANI ELLINGTON MD 12/09/2020 12:00:00 AM [facility] Inpatient Attender: TASHIA PHOENIX MD Admitter: TASHIA PHOENIX MDReferrer: TASHIA PHOENIX MD 11/30/2020 12:00:00 AM EDT - 11/30/2020 11:59:00 PM EDT [facility] Inpatient Attender: MAGDALENE MAUREENIRENE RESIDENTReferrer: MAREK JOHNSTON RESIDENT 11/30/2020 12:00:00 AM EDT [facility] Inpatient Attender: Alejo García DOAtten sandy: FANI ELLINGTON MDAttender: MAGDALENE JOHNSTON RESIDENTAttender: TASHIA PHOENIX MDAttender: KESHIA NEWBY MDAttender: APRIS AHN MDAdmitter: MAGDALENE JOHNSTON RESIDENTReferrer: MAGDALENE JOHNSTON RESIDENTConsultant: Alejo García DO [id number] 11/29/2020 12:00:00 AM EDT - 12/05/2020 01:15:00 PM EDT [facility] Nausea Patient discharged. Outpatient Attender: Dana Betts MD [id number] 11/28/2020 10:55:45 AM EDT [facility] Inpatient Attender: YOLY CHILDS MDReferrer: OYLY CHILDS MD 11/27/2020 12:00:00 AM EDT Other specified diseases of pancreas [facility] Other specified diseases of pancreas Inpatient Attender: YOLY CHILDS MDAtt yennifer: TASHIA PHOENIX MDAttender: PARIS AHN MDAttender: DEFAULT EDAdmitter: TASHIA PHOENIX MD [id number] 11/26/2020 12:00:00 AM EDT - 11/28/2020 10:30:00 AM EDT sent by provider [facility] sent by provider Patient discharged. Emergency Attender: NICOLASA ALBERTSConsultant: PCP NO 11/23/2020 10:52:00 PM EDT - 11/24/2020 03:21:[address] [facility] Patient discharged. Outpatient Attender: SHERRIE Dunaway/Brittney/Gato/Sherry indl 11/23/2020 10:15:00 AM EDT [facility] ([facility], ) OFFICE OUTPATIENT VISIT 15 MINUTES Attender: NELL ENGLISH Phys ical Therapy 10/01/2020 04:00:00 PM EDT [facility] ([facility] ) Outpatient Attender: Frank Hightower MD Physical Therapy 09/09/2020 0 8:45:00 AM EDT [facility] ([facility] ) Outpatient Attender: NELL ENGLISH Physical Therapy 08/25/2020 1 0:00:00 AM EDT [facility] ([facility] ) Medications Medication Brand Name [...] A DAY AFTER 1 WEEK SOLD: 09/01/2020 [employer] gabapentin 100 MG Oral Capsule Gabapentin 08/25/2020 12:00:00 AM EDT ORAL active [facility] ([facility]) tizanidine 4 MG Oral Tablet Tizanidine HCL 08/25/2020 12:00:00 AM EDT ORAL active [facility] ([facility] ) tizanidine 4 MG Oral Tablet TIZANIDINE HCL 08/25/2020 12:00:00 AM EDT tablet 60 TAKE ONE TABLET BY MOUTH EVERY 6 HOURS NEEDED TAKE ONE TABLET BY MOUTH EVERY 6 HOURS NEEDED SOLD: 09/01/2020 [facility] [facility] Insurance Providers Payer name Policy type / Coverage type Policy ID Covered republican ID Covered republican's relationship to butler Policy Butler Plan Information [facility] [employer] () Workers Compensation [id number] [facility] () Workers Compensation [id number] [facility] () Workers Compensation [id number] Self [id number] [id number] Self [id number] MEDICAID [id number] Self [id number] BCBS EMPIRE STAN DIV [id number] SP [id number] STATE INSURANCE FUND O [id number] S [id number] BCBS EMPIRE STAN DIV [id number] SP [id number] SELF PAY ONLY [id number] SP [id number] UNAVAILABLE UNAVAILA BLE STATE INSURANCE FUND [id number] SP [id number] SELF PAY UNAVAILABLE SP UNAVAILA BLE NATIONAL GENERAL INSURANCE [id number] SP [id number] ARS MEDICAID [id number] SP [id number] P BCBS OF [place] WATN 306/[id number] SP [id number] BLUE CROSS BLUE SHIELD -O/P [id number] 18 [id number] STATE INSURANCE FUND [id number] SP [id number] STATE INSURANCE FUND [id number] SP [id number] Problems, Conditions, and Diagnoses Code Display Name Description Problem Type Effective Dates Data Source(s) C25.9 Malignant neoplasm of pancreas, unspecif ied Malignant neoplasm of pancreas, unspecified Diagnosis 12/09/2020 12:00:00 AM EDT [facility] Nausea Nausea Diagnosis 11/29/2020 01:32:00 PM ED T [facility] R10.9 Unspecified abdominal pain Unspecified abdominal pain Diagnosis 11/27/2020 05:32:08 PM EDT [facility] K86.89 Other specified diseases of pancreas Oth er specified diseases of pancreas Diagnosis 11/27/2020 05:32:08 PM EDT [facility] sent by provider sent by provider Diagnosis 11/26/2020 12 :15:00 PM EDT [facility] Z8719 Personal history of other diseases of th e digestive system Personal history of other diseases of the digestive system Diagnosis 10/29 10:52[facility] Procedure and treatment not carried out because of patient's decision for unspecified reasons Procedure and treatment not carried out because of patient's decision for unspecified reasons Diagnosis 11/23/2020 10:52:[facility] C801 Malignant (primary) neoplasm, unspecifie d Malignant (primary) neoplasm, unspecified Diagnosis 11/23/2020 10:52:00 PM EDT [facility] 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 Diagnosis 11/23/2020 10:52:00 PM ED T [facility] K8020 Calculus of gallbladder without cholecys titis without obstruction Calculus of gallbladder without cholecystitis without obstruction Diagnosis 11/23/2020 10:52:00 PM EDT [facility] R1013 Epigastric pain Epigastric pain Diagnosis 11/23/2020 10:5 2:00 PM EDT [facility] Surgeries/Procedures Procedure Description Date Indications Data Source(s) OFFICE OUTPATIENT NEW 45 MINUTES 11/23/2020 12:00:00 A M EDT [facility] ([facility]) OFFICE OUTPATIENT VISIT 15 MINUTES 10/01/2020 12:00:00 AM EDT [facility] ([facility] ) OFFICE OUTPATIENT VISIT 25 MINUTES 09/09/2020 12:00:00 AM EDT [facility] ([facility]) RADEX SPINE LUMBOSACRAL MINIMUM 4 VIEWS 08/25/2020 12: 00:00 AM EDT [facility] ([facility]) OFFICE OUTPATIENT NEW 45 MINUTES 08/25/2020 12:00:00 A M EDT [facility] ([facility]) Results ID Date Data Source [id number] 12/08/2020 02:00:00 AM EDT [facility] Name Value Range Interpretation Code Description Data Ellen rce(s) Supporting Document(s) SARS coronavirus 2 RNA [Presence] in Res piratory specimen by LARRY with probe detection NEGATIVE [facility] This lab was ordered by [facility] a nd reported by [facility]. ID Date Data Source [id number] 12/06/2020 08:49:24 AM EDT [facility] Name Value Range Interpretation Code Description Data Ellen rce(s) Supporting Document(s) Discharge Summary [facility] YFANGq1tMfFWVyBj82/MGGvaUZJar8YrTAsmRUl9YNvmPNCaW4FuXZU8uH5aWJD6APiRGdGaUxSgDAPm [facility] [file] AgICAgICAgICAgICAgICAgICAgICAgICAgICAgICAg ICAgICAgICAgICAgICAgICAgICAgICAgICAgICAgICAgICAgICAgICAgICAgICAgICAgICAgDQogICAg ICAgICAgICAgICAgICAgICAgICAgICAgICAgICAgICAgICAgICAgICAgICAgICAgICAgICAgICAgICAg ICAgICAgICAgICAgICAgICAgICAgICAgICAgICAgIC AgICAgDQogICAgICAgICAgICAgICAgICAgICAgICAgICAgICAgICAgICAgICAgICAgICAgICAgICAgIC AgICAgICAgICAgICAgICAgICAgICAgICAgICAgICAgICAgICAgICAgICAgICAgDQogICAgICAgICAgIC AgICAgICAgICAgICAgICAgICAgICAgICAgICAgICAg ICAgICAgICAgICAgICAgICAgICAgICAgICAgICAgICAgICAgICAgICAgICAgICAgICAgICAgICAgDQog ICAgICAgICAgICAgICAgICAgICAgICAgICAgICAgICAgICAgICAgICAgICAgICAgICAgICAgICAgICAg ICAgICAgICAgICAgICAgICAgICAgICAgICAgICAgIC AgICAgICAgDQogICAgICAgICAgICAgICAgICAgICAgICAgICAgICAgICAgICAgICAgICAgICAgICAgIC AgICAgICAgICAgICAgICAgICAgICAgICAgICAgICAgICAgICAgICAgICAgICAgICAgDQogICAgICAgIC AgICAgICAgICAgICAgICAgICAgICAgICAgICAgICAg ICAgICAgICAgICAgICAgICAgICAgICAgICAgICAgICAgICAgICAgICAgICAgICAgICAgICAgICAgICAg DQogICAgICAgICAgICAgICAgICAgICAgICAgICAgICAgICAgICAgICAgICAgICAgICAgICAgICAgICAg ICAgICAgICAgICAgICAgICAgICAgICAgICAgICAgIC AgICAgICAgICAgDQogICAgICAgICAgICAgICAgICAgICAgICAgICAgICAgICAgICAgICAgICAgICAgIC AgICAgICAgICAgICAgICAgICAgICAgICAgICAgICAgICAgICAgICAgICAgICAgICAgICAgDQogICAgIC AgICAgICAgICAgICAgICAgICAgICAgICAgICAgICAg ICAgICAgICAgICAgICAgICAgICAgICAgICAgICAgICAgICAgICAgICAgICAgICAgICAgICAgICAgICAg ZLHwFUj4G8bxBVMsDEQnBV0aCQd6Hr9+QEuPEiAiZYT1icYmwZ2BGR7dn6YoFElqHFXhw2GvAVf4TP7R ITUdSQjbDT3QBWrszn8CVCKmTTVbwWOAk9nwMtQiWD Z4UMReWfdlOD7XCMUhK8ziyjEtEFDcMZIKUJsnEQGJPPrtSBVCBUJzDCWzKzDaQaNmDZYeEKFaJVJOTD A1GKObZnVhXZRlDQXsXB8CBARjH420llXnBT8DQd7XDkYcSE2kwi6SJwnqQLGlYfvUGye0BHbxHZ2MlB OgnZP9BMCsOKAYZfXeG4gbh7NjSXNrMVBELDgpYG4O s2SddUGvZSq+Pv0ASF8hk9TsQVj4WHNlGO4sdd2BGHmKHuKaY1FyoUnqYOKni5QfYFVhJDAKnG5gLBE1 XBT2RHAsNXEpmpUKMOSpyfGijiGjP0LtV6fvczeeZCGgAFCtUPBlVZ0uGMOiOPHzTkB7YXFXTJ2TARTb CRLciZInTKJzJNWNEO3INOjdXSF9HFGpgqSxvZAuQE wqHL2CEYXrteVhJfdqGYDDLSj+Lt1UCF3od0CmLUh2ONAtRO3rje6SSQbDPmAuP8V4cMBwT3J4JPoiUi 2UPXYmXPBtEjexZZUCWHtjHI4FOI6cbrZ2AZ8GjQStAWFoRQGnoSWqTWl6U75ejAGgSYitUS8YITI+Pi A+Du8BXLFqDIEjCWJwFeXmHQZEClYtN4FqR5REz6Zu Y3PcCW79hMhtbrPnUNyyGE4ORD8gMSQpHMUFTE1IzYSldI7ugjEyOKCnUIEXEgHuY16reSVsCAKiKLN6 PCQoLg4MSZBlA6AisnHbkOijlgGpEGMtIPKHMI1RIDzxhuWbwNNwhNhjPV89rQvqFU7IDx7QVlPnIK7o ci0LlQGaJy1LZOC9Uc2ZZXHiNNScEQVuYEB8FSXdFm HsGPstANOiWKKrUVL3WLLmTMDcFN7TMsXmMRKnQHJ3AwwyBFJqKNKxby4GDTEjBEW1NqM4EIHuFWArQG QbOOyjHCCiMMXkYPS5JZXdBIYtCH6UEcByRDIyOMYrZlokLZGeCMNdvf4PNFChZTOxYIV9QiKmMCZjXJ QiHNrtEKAxQKE3ICAlQTZoUHSbQR4TKtBeOADqXZk1 FYiaCGMmVFGinl0EDKSiRNPyCpZ3BSCeBPLtEKXoVVgwSLYyBVRaIhS5FHPvDFEzHY0KUjSmKBYjVYp3 DqtkLAWiBKNrvi4KMABhGNDgATLkPtVpDMDsTFKeBXwvBXTuQPAePMK7LFIyROGkID1ROgFlTJBpXpMo KEKbALItKFRdhc3ZOOFeHCQmYFAeQMBaXLXsUFDcFP ypTYWbYGT0SnA1WBNoAFAsUK9LVhVwOYBsNtK2QuCpKJZnPFMarp4MVGYiLBBsPiN5AjRxQLDtIOYfEC ynPKHpDNJ2HNLnNQRcVMDuCJ8ENnBcCRXhJnP8VYghMBAkNNWhim3FROUtPOWlZRgrVLUwQERdYMBbBX awBXSeKJV0CTE0RLIwWXYhJW0HIbRqVFQiLuCbZRwv ALPuBLMqyg0ILHTxYRRgJhK0ZDGgAPDrDQJjNWtpSOUpHAS8ZnCaLYZnLUNhVE0REmYpXCVoHjt8Mqhw GJYlNLGunl8NPTBrMAIpRSO3FKGgAETjBAHkDBypVWSsUWX6ZKe1KUHtXKIsGY2ETkEdHZYuEsk8Wmgr TQGyFEPcki5GBHDvGXNgDXdmSVBwTVAaLUPzJMthGH KhBEI8FEBuTPQbKXWsPP5RRdMvLHIgBNMgDyGkBNDbEYZaxw9CLJUuXVY9BJn5HUFgOBKpWSZcOQduBE DcCGM9LsR8NTAkCSLoHY2PTlNqIJIjMYS6KYmqMRChSUQiik8PWWKmXUF7SFy5GRFmJNGwWWNdDChwRR KzDJH0VNO6PCHxPPFpXU1PKxQkMLAaUPVqPoqlPTYe CDEtpg0DVHPrJWP0PhhfVxErWQAaWQSjDBtiZHZdHSE9QKj5SISfWNXjJV5XYwLwODUlARcpKAKpHYLj TUPpmv1SvEVdaCsvkw8QFThVIk6ZeRwaVNXrYUomQs1ucIW7ADSlZDPUGc3EhqErSIFeICEGCVwhQPDx SKZhEsIcJdM9UKY7BRhzOQYcYvCoSDT2LdZrJCV1Sx KsFpZ1PLZlMDZfQyOsVNe1U2G8WcBuQfYcADP9MeVsWixrBIA+MU5rRBv+Tw6Oh4UxvaN8ixBpAQk2QO VhZL4GUQUWN8KPRn== ID Date Data Source [id number] 12/05/2020 02:39:26 AM EDT [facility] Name Value Range Interpretation Code Description Data Ellen rce(s) Supporting Document(s) Leukocytes [#/volume] in Blood by Automated count 3.9 10*3/uL 4-10 L [facility] Erythrocytes [#/volume] in Blood by Automated count 4.54 10*6/uL 4.6- 6.1 [facility] Hemoglobin [Mass/volume] in Blood 13.5 g/dL 13.5-18 [facility] Hematocrit [Volume Fraction] of Blood by Automated count 40.6 % 4 1-53 L [facility] Erythrocyte mean corpuscular volume [Entitic volume] by Auto mated count 89.4 fL 80-96 [facility] Erythrocyte mean corpuscular hemoglobin [Entitic mass] by Automated count 29.7 pg 27-33 [facility] Erythrocyte mean corpuscular hemoglobin concentration [Mass/volume] by Automated count 33.2 g/dL 32.0-36.0 [facility] Erythrocyte distribution width [Ratio] by Automated count 13.1 % 11.5-14.5 [facility] Platelets [#/volume] in Blood by Automated count 224 10*3/uL 150-400 [facility] Differential cell count method - Blood [facility] Neutrophils/100 leukocytes in Blood by Automated count 91 % [facility] Lymphocytes/100 leukocytes in Blood by Automated count 6 % [facility] Monocytes/100 leukocytes in Blood by Automated count 3 % [facility] Eosinophils/100 leukocytes in Blood by Automated count 0 % [facility] Basophils/100 leukocytes in Blood by Automated count 0 % [facility] Neutrophils [#/volume] in Blood by Automated count 3.58 10*3/uL 1.8-7 .0 [facility] Lymphocytes [#/volume] in Blood by Automated count 0.25 10*3/uL 1.2-4 .0 L [facility] Monocytes [#/volume] in Blood by Automated count 0.10 10*3/uL 0-0.8 [facility] Eosinophils [#/volume] in Blood by Automated count 0.00 10*3/uL 0-0.5 [facility] Basophils [#/volume] in Blood by Automated count 0.00 10*3/uL 0-0.2 [facility] Nucleated erythrocytes/100 leukocytes [Ratio] in Blood by Automated count 0 /100{WBCs} 0-0 [facility] ID Date Data Source [id number] 12/05/2020 02:59:25 AM EDT [facility] Name Value Range Interpretation Code Description Data Ellen rce(s) Supporting Document(s) Albumin [Mass/volume] in Serum or Plasma by Bromocresol green (BCG) dye binding method 4.5 g/dL 3.5-5.2 [facility] Bilirubin.total [Mass/volume] in Serum or Plasma 1.3 mg/dL <1.2 H [facility] Calcium [Mass/volume] in Serum or Plasma 9.2 mg/dL 8.6-10.0 [facility] Chloride [Moles/volume] in Serum or Plasma 99 mmol/L 98-107 [facility] Creatinine [Mass/volume] in Serum or Plasma 0.73 mg/dL 0.70-1.20 [facility] Glucose [Mass/volume] in Serum or Plasma 107 mg/dL 70-140 [facility] Alkaline phosphatase [Enzymatic activity/volume] in Serum or Plasma 65 U/L 40-129 [facility] Potassium [Moles/volume] in Serum or Plasma 4.5 mmol/L 3.4-5.1 [facility] Hemolyzed Protein [Mass/volume] in Serum or Plasma 6.4 g/dL 6.4-8.3 [facility] Sodium [Moles/volume] in Serum or Plasma 133 mmol/L 136-145 L [facility] Aspartate aminotransferase [Enzymatic activity/volume] in Serum or Plasma 118 U/L <40 H [facility] Urea nitrogen [Mass/volume] in Serum or Plasma 15 mg/dL 6-20 [facility] Osmolality of Serum or Plasma by calculation 278 mosm/kg 275-300 [facility] Creatinine/Urea nitrogen [Mass Ratio] in Serum or Plasma 20 [facility] Bicarbonate [Moles/volume] in Serum 23 mmol/L 22-29 [facility] Alanine aminotransferase [Enzymatic activity/volume] in Seru m or Plasma 187 U/L <41 H [facility] Anion gap 3 in Serum or Plasma 12 mmol/L 8-15 [facility] Glomerular filtration rate/1.73 sq M pre dicted among non-blacks [Volume Rate/Area] in Serum or Plasma by Creatinine-based formula (MDRD) >6 0 [facility] Glomerular filtration rate/1.73 sq M pre dicted among blacks [Volume Rate/Area] in Serum or Plasma by Creatinine-based formula (MDRD) >60 [facility] ID Date Data Source [id number] [facility] Range Interpretation Code Description Data Ellen rce(s) Supporting Document(s) Magnesium [Mass/volume] in Serum or Plasma 2.5 mg/dL 1.6-2.6 [facility] ID Date Data Source [id number] 12/05/2020 02:59:25 AM [facility] Value Range Interpretation Code Description Data Ellen rce(s) Supporting Document(s) Phosphate [Mass/volume] in Serum or Plasma 3.3 mg/dL 2.5-4.5 [facility] ID Date Data Source [id number] 12/04/2020 12:44:36 AM EDT [facility] Name Value Range Interpretation Code Description Data Ellen rce(s) Supporting Document(s) Leukocytes [#/volume] in Blood by Automated count 7.2 10*3/uL 4-10 [facility] Erythrocytes [#/volume] in Blood by Automated count 4.35 10*6/uL 4.6- 6.1 L [facility] Hemoglobin [Mass/volume] in Blood 12.9 g/dL 13.5-18 L [facility] Hematocrit [Volume Fraction] of Blood by Automated count 39.0 % 4 1-53 L [facility] Erythrocyte mean corpuscular volume [Entitic volume] by Auto mated count 89.6 fL 80-96 [facility] Erythrocyte mean corpuscular hemoglobin [Entitic mass] by Automated count 29.6 pg 27-33 [facility] Erythrocyte mean corpuscular hemoglobin concentration [Mass/volume] by Automated count 33.0 g/dL 32.0-36.[facility] distribution width [Ratio] by Automated count 13.2 % 11.5-14.5 [facility] Platelets [#/volume] in Blood by Automated count 265 10*3/uL 150-400 [facility] Differential cell count method - Blood [facility] Neutrophils/100 leukocytes in Blood by Automated count 88 % [facility] Lymphocytes/100 leukocytes in Blood by Automated count 5 % [facility] Monocytes/100 leukocytes in Blood by Automated count 7 % [facility] Eosinophils/100 leukocytes in Blood by Automated count 0 % [facility] Basophils/100 leukocytes in Blood by Automated count 0 % [facility] Neutrophils [#/volume] in Blood by Automated count 6.34 10*3/uL 1.8-7 .0 [facility] Lymphocytes [#/volume] in Blood by Automated count 0.36 10*3/uL 1.2-4 .0 L [facility] Monocytes [#/volume] in Blood by Automated count 0.51 10*3/uL 0-0.8 [facility] Eosinophils [#/volume] in Blood by Automated count 0.00 10*3/uL 0-0.5 [facility] Basophils [#/volume] in Blood by Automated count 0.00 10*3/uL 0-0.2 [facility] Nucleated erythrocytes/100 leukocytes [Ratio] in Blood by Automated count 0 /100{WBCs} 0-0 [facility] ID Date Data Source [id number] 12/04/2020 01:00:28 AM EDT [facility] Name Value Range Interpretation Code Description Data Ellen rce(s) Supporting Document(s) Albumin [Mass/volume] in Serum or Plasma by Bromocresol green (BCG) dye binding method 4.4 g/dL 3.5-5.2 [facility] Bilirubin.total [Mass/volume] in Serum or Plasma 1.1 mg/dL <1.2 [facility] Calcium [Mass/volume] in Serum or Plasma 8.7 mg/dL 8.6-10.0 [facility] Chloride [Moles/volume] in Serum or Plasma 99 mmol/L 98-107 [facility] Creatinine [Mass/volume] in Serum or Plasma 0.76 mg/dL 0.70-1.20 [facility] Glucose [Mass/volume] in Serum or Plasma 103 mg/dL 70-140 [facility] Alkaline phosphatase [Enzymatic activity/volume] in Serum or Plasma 63 U/L 40-129 [facility] Potassium [Moles/volume] in Serum or Plasma 4.3 mmol/L 3.4-5.1 [facility] Hemolyzed Protein [Mass/volume] in Serum or Plasma 6.2 g/dL 6.4-8.3 L [facility] Sodium [Moles/volume] in Serum or Plasma 136 mmol/L 136-145 [facility] Aspartate aminotransferase [Enzymatic activity/volume] in Serum or Plasma 195 U/L <40 H [facility] Urea nitrogen [Mass/volume] in Serum or Plasma 13 mg/dL 6-20 [facility] Osmolality of Serum or Plasma by calculation 282 mosm/kg 275-300 [facility] Creatinine/Urea nitrogen [Mass Ratio] in Serum or Plasma 17 [facility] Bicarbonate [Moles/volume] in Serum 24 mmol/L 22-29 [facility] Alanine aminotransferase [Enzymatic activity/volume] in Seru m or Plasma 164 U/L <41 H [facility] Anion gap 3 in Serum or Plasma 13 mmol/L 8-15 [facility] Glomerular filtration rate/1.73 sq M pre dicted among non-blacks [Volume Rate/Area] in Serum or Plasma by Creatinine-based formula (MDRD) >6 0 [facility] Glomerular filtration rate/1.73 sq M pre dicted among blacks [Volume Rate/Area] in Serum or Plasma by Creatinine-based formula (MDRD) >60 [facility] ID Date Data Source [id number] 12/04/2020 01:00:28 AM [facility] Name Value Range Interpretation Code Description Data Ellen rce(s) Supporting Document(s) Magnesium [Mass/volume] in Serum or Plasma 2.1 mg/dL 1.6-2.6 [facility] ID Date Data Source [id number] 12/04/2020 01:00:28 AM [facility] Value Range Interpretation Code Description Data Ellen rce(s) Supporting Document(s) Phosphate [Mass/volume] in Serum or Plasma 3.2 mg/dL 2.5-4.5 [facility] ID Date Data Source [id number] 12/03/2020 06:02:00 PM [facility] Value Range Interpretation Code Description Data Ellen rce(s) Supporting Document(s) Albumin [Mass/volume] in Serum or Plasma by Bromocresol green (BCG) dye binding method 4.3 g/dL 3.5-5.2 [facility] Bilirubin.total [Mass/volume] in Serum or Plasma 1.0 mg/dL <1.2 [facility] Calcium [Mass/volume] in Serum or Plasma 9.2 mg/dL 8.6-10.0 [facility] Chloride [Moles/volume] in Serum or Plasma 100 mmol/L 98-107 [facility] Creatinine [Mass/volume] in Serum or Plasma 0.70 mg/dL 0.70-1.20 [facility] Glucose [Mass/volume] in Serum or Plasma 87 mg/dL 70-140 [facility] Alkaline phosphatase [Enzymatic activity/volume] in Serum or Plasma 63 U/L 40-129 [facility] Potassium [Moles/volume] in Serum or Plasma 4.2 mmol/L 3.4-5.1 [facility] Protein [Mass/volume] in Serum or Plasma 6.1 g/dL 6.4-8.3 L [facility] Sodium [Moles/volume] in Serum or Plasma 137 mmol/L 136-145 [facility] Aspartate aminotransferase [Enzymatic activity/volume] in Serum or Plasma 57 U/L <40 H [facility] Urea nitrogen [Mass/volume] in Serum or Plasma 10 mg/dL 6-20 [facility] Osmolality of Serum or Plasma by calculation 283 mosm/kg 275-300 [facility] Creatinine/Urea nitrogen [Mass Ratio] in Serum or Plasma 14 [facility] Bicarbonate [Moles/volume] in Serum 23 mmol/L 22-29 [facility] Alanine aminotransferase [Enzymatic activity/volume] in Seru m or Plasma 35 U/L <41 [facility] Anion gap 3 in Serum or Plasma 14 mmol/L 8-15 [facility] Glomerular filtration rate/1.73 sq M pre dicted among non-blacks [Volume Rate/Area] in Serum or Plasma by Creatinine-based formula (MDRD) >6 0 [facility] Glomerular filtration rate/1.73 sq M pre dicted among blacks [Volume Rate/Area] in Serum or Plasma by Creatinine-based formula (MDRD) >60 [facility] ID Date Data Source [id number] 12/03/2020 12:26:22 PM EDT [facility] Name Value Range Interpretation Code Description Data Ellen rce(s) Supporting Document(s) ED Provider Note [facility] XJJXEy5yNvMRVxEw39/DQWhqJYOqn2TsJAdmURd0QAqdVWPsK7NxFVJ1xN9aLCV5ORnWPfUsAuBbNMD9 lbm [file] mPNg9sNOFo3M6Z20Ub1AB+tool crib lead/r48SRQDy5VRejuHUoxyL1BNp26iyADaBUfDCjwYcVdfAPxeEuCOQwO [file] FYGgRIDrKJPrQEFGAWjnBP9LCO9bxtH2UH5MrDHpHZYvWDTmxZOkBQw3G34ccREqGTwyZV8HOMQ+Claudia+ Hq8LPCTiTYLyHSZoViHtRCIZOcYmH4KdG6LIc3DyJ2ZlMW27lJpwxxIgFMzdPU3FUL4oCEHmLCTZPD7X wRPchO6yngS1MZEpHMBVIqFuL71smLQdQTCqSAJ3ID GlHo7TLMNvA4NzkwIsuDxzzqCcIAVpMTGZNI5MCDcybdDcmBRzeEalJX89mBrnDS5DTd9ZQuAtFO8kyi 6ZzLFcZn4BUXR1ZQ7KIWWpUUBsNEYqELA2ABZhUmYaAVtqFDUaSXEkFJX0ZWUwBIJfVK7MLnJkUPYqOV DoNfufEPNuLDHojv4PWBEnTLD2WVi0AEEwSSKsCBYn NPgtVRLwQOOaBQW4ACPyFPCtTY6DBzXdVNSiINAgLbFzCJGqDPKyws5MLCGvRXDnBrK8NHOrIAZlOBAg UAeyNTFvVMJ5NuFxKZHqTDIiVB4DNfAkVCAjAJU5TAgzIZSrVHVbae0OXWUzUSLeBSy6NLFpCRHmOLRb ACstFAIcVKD6YUZ8TCZeXUWuSY4INsAuOMDbBDHrWR zqBUIpVZXmie2HXFAnAATwLpGjJNFzQCBsZQEpXJbnCPPdTLF3ELI4ABEmFNXnYT0CEkOoQCZhHPJiVY XgBATkWOOnix2FLONuRBElNxP8KGAlNVFqNXAoIXalHSBeMXW4MJwjVZRrMJIpJZ7TBuWoFWSyStJ8Xv KkXCHuDWBshy3JMZQyAOFpPRH5DdVdGJBbDWNiVLnx PJXxAAS0DYUhXWVbPBFbRH3LDxRbPQTkIrMqZVHaYGEwAFYawr0XMRFkPCNhWxp5KsDkBDSwHOEdNXnx RRNvHOZ2ZFS0WNMmPYUwTC2JLuFvUJYvEdt8KSIdRQBnXKHvlr8RQHZyBBKpOLi4WVEwCPBlGUNjEDgl IJWvUSSxFYi8ILNcJEGuTS0TEbVjSQXvWjWaQHFvYY HfATUxnj0JEELuXFOaHyN6PTFbLYKkMKVlQBkvFXMeGUWgQxZqUFGyXATgEG6TUhMrPDNlTgV2BuGePP MyGVKeoi1VYUKtVHTzIqE5OrRuOCWaDCZgQSreDNMcEYUaVNv4EBSlQRGlUR5ILpScLNSuCeB2OZQzMK SrBTVnbf9KDRHoKAFwOOi4QkOsWWQgCBApPAxlOMPo ZUP7FJFoHYTlDNXdLX7UUxMdWZQuZhAwUfOmWHUtTLFewu3XWFAwTWS8AaK4BsSrULOzZZYeBJneGRJt OMI2MNw3RKRvVDLjGV3EUtMmANAtGWyxOPmmRWPdGIDarp5UQHBbNWY5LcMwUsKdJWXtAFXaRClkLZOd CGA1BBxfAPKcXCYkAC3ZLeMtFCAgLEo1ZlesKIBiJX Lpvs1XWUMhXOL6EVAzORPyCBCdWLKsYOifBCAbFDW2UmhhQWNwEPFuMU9QBvQaWZZqVLi8KbWxFKYmMN Kiyf6UVUSqPUD4MVzoXnAvSJLzYQNcYCuzFWYpJGQtUDX4QVUgMVLgNX6BUgXuEDQnYKM6BKSyVCWrQK Tycu7BYZApIQJ0UwK6FDJvTMIjCMXtIAajUSAyYOBp TLZoTZHtKDLiMG7KQzMpHCHlAOGkTSZeNCZoBTCtbv8TGDQfQWV5TyB0UKJfRSYdROHwWIotCHDoUOIu Pxg2GETeSCSyBC6PCyNyEGCdBHV1YDUnEMFtCQNvie9YBRDtKYG2IeErMIUcPJRlDDMpAWaaMWHxYJJw NrUcRGYhRRRtVD6SJkDoXKSyQZHrPROnMXYhMFHurr 6GRXLkSTF8GsY8PiHsGGStWRTrFTlnQZNbOEPgXrY6YJWpIYWrZM5TDcSoXTIlTLP2JMDoJLIyHBXvif 5RmGGpyWizdl4UQAmMYz2JaErgYSAfXYjkRz8esQP9KHJdRVGJHs2KwrUwZCJmLTXDNHqtZIFgMWC1YG G5EIwdVvLnUpogGlTyICyoNujcJAU5BQB0YjBsBdW1 NcLpFPxwXFO3FyW0PLSvYaDlUnSzJVQdSKqmMTlpIXK+SC9kUDe+Zh0Dx1LnqbJ4wbGoOTu1KYH4Dl4D PJHSM0EIJb== ID Date Data Source [id number] 12/03/2020 12:10:15 PM EDT [facility] Name Value Range Interpretation Code Description Data Ellen rce(s) Supporting Document(s) ED Provider Note [facility] TPVJGt8vQpMDDmRf50/PUExmSMJaw2CwCNmzUVp1LXirBAVtX0GjJAZ8mW1wMIQ8NBeEPqZdDdJuZQI8 lbm [file] JwTTevER0IPJZ+Claudia+Lf9KCBRzQMBgIWDoVuOtQTAG OaSvX4DqP0JAp7DoL3XxFE93oShsjzReUErcLT6UZU8eRRPqCZRPOU2InAXvfJ1qspR5FiWcNCSTZzUj M32hwSEeHITgLWKuHHNpQn6WHTKcZ5ZyceGilQssmpBuJGGiLKBUWL1ZJEohweEhzEBzkDjfKR28dOgl PP2MHa4HYnJiWZ7cjt6VlKQoYs6ZZDW7AU0PIEOmYW PjSFAbZHL2FHCtRmNuNEazOVTiKERtPXW3OSGkSZVnCD0DHxGbXLQnAgW7JbHdRDQmYLWkpy0DHJYoVV C4NjG7AuGkGYMtEIYoGHjqCNOqGIOmZJD8ONPxOLDhBR5VBdWbDAEeTUC3QbWhOCXaNFFlrw6IPVCqEZ TcGis4URXxRDViIBSwZSzrFGEfOEA5JBk6DFGkOCHw EY4IDmZmHIRdPRQ4QYKgUNPeYMXihy1TGBCdZLWcNMX5WEYyYFHdRZTaWNtcTVKjVBC7OcNrXDBeNPSk LL8SOeZiLFRhRJShYZbzSGVkMBZmtj8UDAJmLRMsDkZ8WRCwFTTaOBGuCZqxQNIlQUG3WZE4YLWaTSMc CU6GOvVqWAJbIGA0NEWmZJOdOYKdpc5POJZkOBUgNX p8TrNhFHAtYAZgXCntADDmDAIwDHpjHOIpBAIbEQ2KInErDRAkJdV9QHKfBDSqOKKohd1SYXMaXNZxXp K2XNZeXDRaPFJoVCahGXIeUCJ8UqU8NBTcDCIwZT2NXtYeIMGwBtI0ETKgZSPhKHStnk5RZUHsYZEtSL YxAnApNWLfAKTeIYtuAVXzMIV7RTRjZXSmUOAxXP9A IfNiLOYhOhR3REVdGFJsHOSnyi5GHUDkIJTiXas4JdDgIGUnEGCcCRhnBOOoDJW7Abc1DUVzNTEgKP3C XyJyGNFxJcG4SVRpGQMiIJSlkw1YQSZcSMInYCS7UHAhKAKlEVQeMGlxGQSxDDR5Nlr8TPNjXATpQG1E PdZrALSbFBAvLmSuUWGyYZCbqt5HDYLyCIQ4PsJ0JJ IvNZVrNJBwFTwaUFWuPLD8XSStUCCqRBEuFH1HAwXpBJJdXST6GCSjEXShGMWuxc2CTYEmNIE2JovaGt ZxKFZdQIEzFMiqNKQnLXL6TAEyDVPfWPArTQ3XLfCcBGHgAAt1NHBfMZIdVBNwan7CUKGuJGS0VYE0IM PaEAOoMEIbXIyfHGJtENJ1TvGjUECyKMAjCM0WQqJv XAPiTVZlJlNwDTRyHMPvpn5TNEDlQQO3RMTfRaGwNOHbYSSmPHimOUPcQBIlJmFzLRVhZZVtOE6QVjEe OHQeOiAdPIRiEQUtCZEuhr6IBLCqIGF5UtQwFLYvNJAjNMWsOAlhQNTiFZTtDfEmIGGsJZAjPU9JMoKn EDEbKyL3PtTkWEQqZEVsqy5ZZXFvIDG7TzLjFDYoRO YdKGFjJQskYQWbOJOpFRSdOPHiGWCmAO3LJaYmHNWxXqMuVCYhFZRoADEuhq6MNWDnUTE2GZMgIKMzZA AmIHBrWMoiJVYoVIM6NlWpITTuUERwEN5CKoApHBLnEnC6VMGfPJEtTAJwpa7QUXWtQPY8BWMcCTGqBZ IuVYUiNJqrIDFkTXT8MGJ3SFEyIVCgQC3NSvQcAUUv Cst7ZCAyPUCzSNSvoa8FRMXlKCK7DcK3KkRmCWBdDZOyNKuiMHYdQQF9BUY6DEScEBLeEF1AOjUuOBDv Ndw9ZwflFRVmMKBttj0YUCVhVER9QZP9GyIoSGNcTEBoAEwvGNNnSDR7VhYkVARsLMUiSU1RDvTzYQRt Hqg3UAckBZIzQZGaqn1AWKIjZEY0AEK7PwQtOAFsTX BkTTb3ukOauCWgXQu5NZ1UK3MtwfXoCePRSj5Xp003LEOrZRVpRw2OC8cdWc6nVSRkUXIDRn2ZJSb2NA DySfS4DFUyUNvsS6GwCYthLHgxOeRqDDU0TYC5FGS+VBn2VaXrVOY2POUmH8Q2XnF2K1L5A0Y4NBNiLq BbWWh1Vx7gEIRWFa7+YQnfuETrcEufYJOXJjZ6QSE8BMqeAEYASk9E ID Date Data Source [id number] 12/03/2020 01:05:43 AM [facility] Name Value Range Interpretation Code Description Data Ellen rce(s) Supporting Document(s) Bicarbonate [Moles/volume] in Serum 24 mmol/L 22-29 [facility] Chloride [Moles/volume] in Serum or Plasma 101 mmol/L 98-107 [facility] Creatinine [Mass/volume] in Serum or Plasma 0.62 mg/dL 0.70-1.20 L [facility] Glucose [Mass/volume] in Serum or Plasma 120 mg/dL 70-140 [facility] Potassium [Moles/volume] in Serum or Plasma 4.2 mmol/L 3.4-5.1 [facility] Sodium [Moles/volume] in Serum or Plasma 134 mmol/L 136-145 L [facility] Urea nitrogen [Mass/volume] in Serum or Plasma 5 mg/dL 6-20 L [facility] Anion gap 3 in Serum or Plasma 8 mmol/L 8-15 [facility] Osmolality of Serum or Plasma by calculation 276 mosm/kg 275-300 [facility] Creatinine/Urea nitrogen [Mass Ratio] in Serum or Plasma 8 [facility] Calcium [Mass/volume] in Serum or Plasma 9.1 mg/dL 8.6-10.0 [facility] Glomerular filtration rate/1.73 sq M pre dicted among non-blacks [Volume Rate/Area] in Serum or Plasma by Creatinine-based formula (MDRD) >6 0 [facility] Glomerular filtration rate/1.73 sq M pre dicted among blacks [Volume Rate/Area] in Serum or Plasma by Creatinine-based formula (MDRD) >60 [facility] ID Date Data Source [id number] 12/03/2020 01:05:43 AM [facility] Name Value Range Interpretation Code Description Data Ellen rce(s) Supporting Document(s) Magnesium [Mass/volume] in Serum or Plasma 1.9 mg/dL 1.6-2.6 [facility] ID Date Data Source [id number] 12/03/2020 01:05:43 AM [facility] Name Value Range Interpretation Code Description Data Ellen rce(s) Supporting Document(s) Phosphate [Mass/volume] in Serum or Plasma 3.1 mg/dL 2.5-4.5 [facility] ID Date Data Source [id number] 12/03/2020 02:05:08 AM [facility] Name Value Range Interpretation Code Description Data Ellen rce(s) Supporting Document(s) Leukocytes [#/volume] in Blood by Automated count 2.1 10*3/uL 4-10 L [facility] Erythrocytes [#/volume] in Blood by Automated count 4.35 10*6/uL 4.6- 6.1 [facility] Hemoglobin [Mass/volume] in Blood 12.8 g/dL 13.5-18 L [facility] Hematocrit [Volume Fraction] of Blood by Automated count 38.8 % 4 1-53 [facility] Erythrocyte mean corpuscular volume [Entitic volume] by Auto mated count 89.1 fL 80-96 [facility] Erythrocyte mean corpuscular hemoglobin [Entitic mass] by Automated count 29.4 pg 27-33 [facility] Erythrocyte mean corpuscular hemoglobin concentration [Mass/volume] by Automated count 33.0 g/dL 32.0-36.0 [facility] distribution width [Ratio] by Automated count 13.2 % 11.5-14.5 [facility] Platelets [#/volume] in Blood by Automated count 199 10*3/uL 150-400 [facility] Differential cell count method - Blood [facility] Neutrophils/100 leukocytes in Blood by Automated count 90 % [facility] Lymphocytes/100 leukocytes in Blood by Automated count 7 % [facility] Monocytes/100 leukocytes in Blood by Automated count 3 % [facility] Neutrophils [#/volume] in Blood by Automated count 1.89 10*3/uL 1.8-7 .0 [facility] Lymphocytes [#/volume] in Blood by Automated count 0.15 10*3/uL 1.2-4 .0 [facility] Monocytes [#/volume] in Blood by Automated count 0.06 10*3/uL 0-0.8 [facility] ID Date Data Source [id number] 12/02/2020 05:33:53 PM EDT [facility] US RENAL OR AORTA COMPLETE [id number] RE SULTInterpreted by:Chen Preciado, CARRIELINICAL HISTORY: Left [...] rce(s) Supporting Document(s) ID Date Data Source [id number] 12/02/2020 12:20:43 PM EDT [facility] Name Value Range Interpretation Code Description Data Ellen rce(s) Supporting Document(s) ED Provider Note [facility] UZUVHv1bPsJEPdVv53/RTYulPQNhg0IdOAjxLHg3HSbuIVTkT4FcSIF4oK5sQUQ7CKuMSyQdEyEkKIX8 lbm [file] mXEjERsvXZ1QZRK+Claudia+Tw7DQQJoMFDtVXTwZyGxQN UMSxHsX2KhD5ZCf8FzR1WfHI63tDbcqqMiISqhIX6BWJ6oUHEvORTIUC0KhDAurX7nzoC4GISaLXMITq NuA14tkVXpRNUfOIDnLXCsDk2KJTJzH9TrmsKasRnjxfBhHTEbKNIRKU2LWUgxxaAplGUytLolYW51uG maRX0ZLt0BUdSyBP1brz9YzKVfHu9BQNL2Jp8ZHBPk NWHgYQWaXTO1COYeCdLlWYqhRUDfTVPuDQH7SKIxOEWoVT0JFuTzINUkPBX1GnDiFBFdXHWliq8AWBXi DHK7RnR7CCCoSKKfQWWwUFtxUMIlAKYnXNQ6XLZlFRKbCR3EYfBkCIDfJER1MfacKHQjLXJsdp9JRUPd NSCcRlWpUBGqMDKoDPClZFrhPHZsEUR4OUxsLLHuHW MjZH6BUqSePDLnMCgpYpRnSXLqPOAuko5XHXAtVKKyCLQ5OUKbGCRpHFOcPFmiNJToGXQdUIubLKMeKC QbXT3ERnAeXDBrAKM8JMoqQZMqWNPnlt8KGEWiRJYgCdS0RVIsADGaVOFkIChuDPCmKKG7Ygy5BDMzTC OeSX3EZtDcRDCyDXD3HELeLARrJXXosf6IVXAzIEAt VEQtJBYjQTBwRLAzCDbsRGMmONA8OTEqJJViIUGqQC9CTlXgHIBcToK7IECpSCOwUNCgda7TNPRbDYOt FZn4HbMjYBAyPZZsGJkqZZVaYZT3NIeoKKXpFDIiFP8UMeJgTYGyEcX2EHiuDXVuKQNaxo2AMCLpETQg XrN3EyLxWJKyPJUjHPyfJWByFVJ4KGi9XJHuZSAsNY 4RTiKfKATkZgu2EXcfVRWsVTEuwm9QPEOyYEWpFlW6DsMsIGMwZALgRSkfUCJhIDE1VYD5VKBsXBBfMG 0GJfWlGBPmClr5OHsvWFMpUTFfbx6AJKYrKVEsAKq8PYRyEHVcEZCoSMtwYLYpRYB5UJa1GGGzZDXlDV 2JVaLpTXRwIgCaEqgqIHApXYZuky2TUQMxXKXxDMDt TELqQQPtHLEyIKhjAMPrOCEoIQH3KSHlCJNzLF1YNaYnWPFtQUA5VFsjEODsLGOrpq7MQQUoUMA0OsD8 GtAoUWQlNVSfEXcfJDEcBRMcZXckGHXtSPLoUG6QVqEhIWMzFPJ1QaBpRJZbHMOczy3EBOFqWVG8Wfo6 MJNzSVXnLNZpZQwgQDTqCBVvDGSzAKHhFABbKI9BCl OlRYFxUPMxFJUpWWBnPKSpup8XLYNqYIR1VYM6VQPqWEFjKZSdRSlqOIMdPQX1FIRnOZVxOILbAW3FUg AsWISuELXqAwOaAIRiWJTuqh9MAIXvESQ1KIRqWOXaMEZjPRYuHJvaGNWlZHX4UVH9AXXeJTQvBB3VCp HzPLGhETs8OPJyAKTcORWrsu0OAMCoVCC1RrJuNdPv VWIfXZRpQSknZHQqQOI1UiWjEVDwYONyKN8CLrSeASBqWYk7BhBbMADtPCVrve4EJYOePYM9NSOaNuBr SMGbJJGaPNslJGGqYFK4ZoK4YQYqULSrFN5NCoEdGSKqIVaoDTDcHDLcBHTlye5KIFUrIQI4TQA4XVVe XWLzWWNbMItxIFJgJNM6VkTeMNEuUTDlMC2VEvKbNU HlSId1PRTsURNuMDHtjn1BOKRiGQY0JWN0XhSkLIVgFRYeWBgsGSTuMRF9ThU7XOSfFCKzGT5BEtLqGZ EkKRt6WoExLMOtTYUjga3JaOZaaPynza7IHXbHPm5ZsGtoPEJ4RWmdMy4ajOB4CxRqLMFZNo5NtiKeXW TgALVGGGvvRAZrBGS1VgIwFyS9QWazAJD8FHQjRzP0 FXM8OzQcYrdeJvHrDuD0BQdeDeTeZRjxDGPbMJS7XgZvJhuePbHsTJLqCGC5WFW+YF6iXEl+Kp9Me5Xg ipP9vwLeDEm1TUT2Vj6EKGOJR2SCKk== ID Date Data Source [id number] 12/02/2020 12:01:37 PM EDT [facility] Name Value Range Interpretation Code Description Data Ellen e(s) Supporting Document(s) Color of Urine [facility] Clarity of Urine [facility] Specific gravity of Urine by Refractometry automated 1.010 1.003 -1.030 [facility] pH of Urine by Automated test strip 5.0 5.0-8.0 [facility] Protein [Mass/volume] in Urine by Automated test strip Neg [facility] Glucose [Mass/volume] in Urine by Automated test strip Neg [facility] Ketones [Mass/volume] in Urine by Automated test strip 20 mg/dL Neg [facility] Bilirubin.total [Presence] in Urine by Automated test strip Negative [facility] Hemoglobin [Presence] in Urine by Automated test strip Neg [facility] Leukocyte esterase [Presence] in Urine by Automated test strip Negative [facility] Nitrite [Presence] in Urine by Automated test strip Negati ve [facility] Leukocytes [#/area] in Urine sediment by Automated count 0 /HPF 0 -5 [facility] Erythrocytes [#/area] in Urine sediment by Automated count 0 /HPF 0-3 [facility] Service comment [facility] ID Date Data Source [id number] 12/02/2020 11:49:36 AM EDT [facility] Name Value Range Interpretation Code Description Data Ellen rce(s) Supporting Document(s) Leukocytes [#/volume] in Blood by Automated count 5.4 10*3/uL 4-10 [facility] Erythrocytes [#/volume] in Blood by Automated count 4.26 10*6/uL 4.6- 6.1 L [facility] Hemoglobin [Mass/volume] in Blood 12.7 g/dL 13.5-18 L [facility] Hematocrit [Volume Fraction] of Blood by Automated count 38.1 % 4 1-53 L [facility] Erythrocyte mean corpuscular volume [Entitic volume] by Auto mated count 89.4 fL 80-96 [facility] Erythrocyte mean corpuscular hemoglobin [Entitic mass] by Automated count 29.8 pg 27-33 [facility] Erythrocyte mean corpuscular hemoglobin concentration [Mass/volume] by Automated count 33.4 g/dL 32.0-36.0 [facility] E[facility]th[facility] distribution width [Ratio] by Automated count 12.9 % 11.5-14.5 [facility] Platelets [#/volume] in Blood by Automated count 213 10*3/uL 150-400 [facility] Differential cell count method - Blood [facility] Neutrophils/100 leukocytes in Blood by Automated count 75 % [facility] Lymphocytes/100 leukocytes in Blood by Automated count 13 % [facility] Monocytes/100 leukocytes in Blood by Automated count 9 % [facility] Eosinophils/100 leukocytes in Blood by Automated count 3 % [facility] Basophils/100 leukocytes in Blood by Automated count 0 % [facility] Neutrophils [#/volume] in Blood by Automated count 4.06 10*3/uL 1.8-7 .0 [facility] Lymphocytes [#/volume] in Blood by Automated count 0.69 10*3/uL 1.2-4 .0 L [facility] Monocytes [#/volume] in Blood by Automated count 0.48 10*3/uL 0-0.8 [facility] Eosinophils [#/volume] in Blood by Automated count 0.17 10*3/uL 0-0.5 [facility] Basophils [#/volume] in Blood by Automated count 0.02 10*3/uL 0-0.2 [facility] Nucleated erythrocytes/100 leukocytes [Ratio] in Blood by Automated count 0 /100{WBCs} 0-0 [facility] ID Date Data Source [id number] 12/02/2020 12:11:19 PM EDT [facility] Name Value Range Interpretation Code Description Data Ellen rce(s) Supporting Document(s) Albumin [Mass/volume] in Serum or Plasma by Bromocresol green (BCG) dye binding method 3.9 g/dL 3.5-5.2 [facility] Bilirubin.total [Mass/volume] in Serum or Plasma 1.1 mg/dL <1.2 [facility] Calcium [Mass/volume] in Serum or Plasma 8.6 mg/dL 8.6-10.0 [facility] Chloride [Moles/volume] in Serum or Plasma 104 mmol/L 98-107 [facility] Creatinine [Mass/volume] in Serum or Plasma 0.70 mg/dL 0.70-1.20 [facility] Glucose [Mass/volume] in Serum or Plasma 112 mg/dL 70-140 [facility] Alkaline phosphatase [Enzymatic activity/volume] in Serum or Plasma 64 U/L 40-129 [facility] Potassium [Moles/volume] in Serum or Plasma 3.9 mmol/L 3.4-5.1 [facility] Protein [Mass/volume] in Serum or Plasma 6.0 g/dL 6.4-8.3 L [facility] Sodium [Moles/volume] in Serum or Plasma 137 mmol/L 136-145 [facility] Aspartate aminotransferase [Enzymatic activity/volume] in Serum or Plasma 11 U/L <40 [facility] Urea nitrogen [Mass/volume] in Serum or Plasma 4 mg/dL 6-20 L [facility] Osmolality of Serum or Plasma by calculation 282 mosm/kg 275-300 [facility] Creatinine/Urea nitrogen [Mass Ratio] in Serum or Plasma 6 [facility] Bicarbonate [Moles/volume] in Serum 25 mmol/L 22-29 [facility] Alanine aminotransferase [Enzymatic activity/volume] in Seru m or Plasma 7 U/L <41 [facility] Anion gap 3 in Serum or Plasma 8 mmol/L 8-15 [facility] Glomerular filtration rate/1.73 sq M pre dicted among non-blacks [Volume Rate/Area] in Serum or Plasma by Creatinine-based formula (MDRD) >6 0 [facility] Glomerular filtration rate/1.73 sq M pre dicted among blacks [Volume Rate/Area] in Serum or Plasma by Creatinine-based formula (MDRD) >60 [facility] ID Date Data Source [id number] 12/02/2020 02:02:07 PM [facility] Name Value Range Interpretation Code Description Data Ellen rce(s) Supporting Document(s) Cancer Ag 19-9 [Units/volume] in Serum or Plasma 121 U/mL <35 H [facility] ConfirmedThis test uses [place] CA 19-9 el ectrochemiluminescent immunoassay. Results obtained with different test methods or kits cannot be used interchangeably. CA 19-9 is useful in monitoring pancreatic, hepatobiliary, gastric, hepatocelllular, and colorectal cancer. CA 19-9 value regardless of level, should not be interpreted as absolute evidence of the presence or absence of malignant disease. ID Date Data Source [id number] 12/02/2020 04:09:24 AM [facility] Value Range Interpretation Code Description Data Ellen rce(s) Supporting Document(s) Phosphate [Mass/volume] in Serum or Plasma 2.3 mg/dL 2.5-4.5 [facility] ID Date Data Source [id number] 12/02/2020 04:48:02 AM [facility] Value Range Interpretation Code Description Data Ellen rce(s) Supporting Document(s) Leukocytes [#/volume] in Blood by Automated count 5.2 10*3/uL 4-10 [facility] Erythrocytes [#/volume] in Blood by Automated count 4.27 10*6/uL 4.6- 6.1 L [facility] Hemoglobin [Mass/volume] in Blood 12.5 g/dL 13.5-18 L [facility] Hematocrit [Volume Fraction] of Blood by Automated count 38.1 % 4 1-53 L [facility] Erythrocyte mean corpuscular volume [Entitic volume] by Auto mated count 89.1 fL 80-96 [facility] Erythrocyte mean corpuscular hemoglobin [Entitic mass] by Automated count 29.3 pg 27-33 [facility] Erythrocyte mean corpuscular hemoglobin concentration [Mass/volume] by Automated count 32.9 g/dL 32.0-36.0 [facility] Erythrocyte distribution width [Ratio] by Automated count 12.8 % 11.5-14.5 [facility] Platelets [#/volume] in Blood by Automated count 201 10*3/uL 150-400 [facility] Differential cell count method - Blood [facility] Neutrophils/100 leukocytes in Blood by Automated count 67 % [facility] Lymphocytes/100 leukocytes in Blood by Automated count 20 % [facility] Monocytes/100 leukocytes in Blood by Automated count 8 % [facility] Eosinophils/100 leukocytes in Blood by Automated count 5 % [facility] Basophils/100 leukocytes in Blood by Automated count 0 % [facility] Neutrophils [#/volume] in Blood by Automated count 3.45 10*3/uL 1.8-7 .0 [facility] Lymphocytes [#/volume] in Blood by Automated count 1.06 10*3/uL 1.2-4 .0 L [facility] Monocytes [#/volume] in Blood by Automated count 0.43 10*3/uL 0-0.8 [facility] Eosinophils [#/volume] in Blood by Automated count 0.25 10*3/uL 0-0.5 [facility] Basophils [#/volume] in Blood by Automated count 0.01 10*3/uL 0-0.2 [facility] Nucleated erythrocytes/100 leukocytes [Ratio] in Blood by Automated count 0 /100{WBCs} 0-0 [facility] ID Date Data Source [id number] 12/02/2020 04:55:04 AM EDT [facility] Name Value Range Interpretation Code Description Data Ellen rce(s) Supporting Document(s) Bicarbonate [Moles/volume] in Serum 21 mmol/L 22-29 L [facility] Chloride [Moles/volume] in Serum or Plasma 100 mmol/L 98-107 [facility] Creatinine [Mass/volume] in Serum or Plasma 0.66 mg/dL 0.70-1.20 L [facility] Glucose [Mass/volume] in Serum or Plasma 87 mg/dL 70-140 [facility] Potassium [Moles/volume] in Serum or Plasma 3.7 mmol/L 3.4-5.1 [facility] Hemolyzed Sodium [Moles/volume] in Serum or Plasma 134 mmol/L 136-145 L [facility] Urea nitrogen [Mass/volume] in Serum or Plasma 6 mg/dL 6-20 [facility] Anion gap 3 in Serum or Plasma 12 mmol/L 8-15 [facility] Osmolality of Serum or Plasma by calculation 275 mosm/kg 275-300 [facility] Creatinine/Urea nitrogen [Mass Ratio] in Serum or Plasma 9 [facility] Calcium [Mass/volume] in Serum or Plasma 8.4 mg/dL 8.6-10.0 L [facility] Glomerular filtration rate/1.73 sq M pre dicted among non-blacks [Volume Rate/Area] in Serum or Plasma by Creatinine-based formula (MDRD) >6 0 [facility] Glomerular filtration rate/1.73 sq M pre dicted among blacks [Volume Rate/Area] in Serum or Plasma by Creatinine-based formula (MDRD) >60 [facility] ID Date Data Source [id number] 12/01/2020 09:28:00 [place] [address] RESPIRATORY CARE REPORT ==== ---------NAME------- NUMBER SEX AGE ADMIT DISC. XRAY# F/C TYPEREID SHERRIE Gaviria [id number] M 35 11/23/20 11/24/20 [id number] BB1 E/R DATE OF : 1985 M/R# [id number] #: [id number] VT-20 LOCATION: EMERGENCY DEPT EKG [id number] COMPLE TE:11/24/20 01:49 AJP [id number] PHYSICIAN: LEXUS VÁSQUEZ Name Value Range Interpretation Code Description Data Ellen rce(s) Supporting Document(s) ID Date Data Source [id number] 12/01/2020 04:59:09 PM EDT [facility] Name Value Range Interpretation Code Description Data Ellen rce(s) Supporting Document(s) Consultation [facility] QWVORi2mOsWUNnJt89/SQNttPATml4XpHZkdUYk3ALrrSPOyY5IqRJT9eV5wRHJ7KNtTWvAjWaPuFXM0 lbm [file] gx/8G5EtjLsLj+szvfl44Ja0j39NgYYYeURTFb+WKuqdSyVfmdawoKtp6IwvcVh1JameCJwFn/OM/+ASSEMBLER FAUCETS [file] AgICAgICAgICAgICAgICAgICAgICAgICAgICAgICAgICAgICAgICAgICAgICAgDQogICAgICAgICAgIC AgICAgICAgICAgICAgICAgICAgICAgICAgICAgICAg ICAgICAgICAgICAgICAgICAgICAgICAgICAgICAgICAgICAgICAgICAgICAgICAgICAgICAgICAgDQog ICAgICAgICAgICAgICAgICAgICAgICAgICAgICAgICAgICAgICAgICAgICAgICAgICAgICAgICAgICAg ICAgICAgICAgICAgICAgICAgICAgICAgICAgICAgIC AgICAgICAgDQogICAgICAgICAgICAgICAgICAgICAgICAgICAgICAgICAgICAgICAgICAgICAgICAgIC AgICAgICAgICAgICAgICAgICAgICAgICAgICAgICAgICAgICAgICAgICAgICAgICAgDQogICAgICAgIC AgICAgICAgICAgICAgICAgICAgICAgICAgICAgICAg ICAgICAgICAgICAgICAgICAgICAgICAgICAgICAgICAgICAgICAgICAgICAgICAgICAgICAgICAgICAg DQogICAgICAgICAgICAgICAgICAgICAgICAgICAgICAgICAgICAgICAgICAgICAgICAgICAgICAgICAg ICAgICAgICAgICAgICAgICAgICAgICAgICAgICAgIC AgICAgICAgICAgDQogICAgICAgICAgICAgICAgICAgICAgICAgICAgICAgICAgICAgICAgICAgICAgIC AgICAgICAgICAgICAgICAgICAgICAgICAgICAgICAgICAgICAgICAgICAgICAgICAgICAgDQogICAgIC AgICAgICAgICAgICAgICAgICAgICAgICAgICAgICAg ICAgICAgICAgICAgICAgICAgICAgICAgICAgICAgICAgICAgICAgICAgICAgICAgICAgICAgICAgICAg ICAgDQogICAgICAgICAgICAgICAgICAgICAgICAgICAgICAgICAgICAgICAgICAgICAgICAgICAgICAg ICAgICAgICAgICAgICAgICAgICAgICAgICAgICAgIC AgICAgICAgICAgICAgDQogICAgICAgICAgICAgICAgICAgICAgICAgICAgICAgICAgICAgICAgICAgIC SnZZGkFWWnJOKhWJGbXNDkKNXxCDGkRGFbAMBoHQRkRESwOWHxETHkMDPkSQXnIMHoFGUoFPQoONs3L8 yaMTTuJDAzQU2wDOw5Du0+UQrYIfXwBNF8lpMsjE0H NW6gf7ZfGOfxRTXjb8ZcPAg9IM9EBUOlRXudSR0XGPfsmz9ZIFQtIGHjvMBPa1esNrXsNMI8HBZtZsbo IU1CGKDzW4erjwDrYHGjAKKYCQgmWFCCSGyxBVNWPMNsJTLjVgPcUfWnPSCpKCAxSUNAQKO0HYXzPzJh SRofWX9Jz9NqdYF2DXz+Ea5IOS9ei7LwWFwoPlNoDK 9hmq0GPVlYKuZhC0NlrmC6FIJ3UXYdRp8QHWQlDGSvaFFpPMFhTUJWWtPrP9ExeB76DGTCHl1+DQplbm MrMthLBiL2FCJet1AqWIg5BD1JSVTuDVj4tHCqN66py6TtcJPtHpumZDuxDBDnIAFbtsfhBXWaHLOjRS WhXG7sQTCgJMM7IeXvSASAPD8EYZQpEAAwyBAgEASj TDGDBL4ZPBasKYY4UAVvwuOirUYmIVevHA4TGPOyjzFoQszkORXOKIz+Bu9ELL2kt9MjTYpnBYHePH9f lf5GKOzLAoRyG9C4dKXnX8F6RSsyGo2FHHXtXDRsLtMmQQVJMIxlLI6YKX7jtlC7NV6VxOBuHRHjEZEi cULoSLa4W65ibASwTUdlRI6SQSF+Claudia+Yk3BAFXjBN OwNFQhBmRoKLQCOoRtS7TmA1BNv1BbK0KrFQ50wVdjjpAgPNcvLC6WOR4xZWXcNQEHLA9VbXAhbE6djp CkJzDtAGKCYnUkC43npLPpRJXfUET5EPRrWy7KNCThF4XpytIjyTrbgkZzKLBdJVJMRK4KXZyugfXxqW ZvyKjkRA97fWteBA8BEy8NZwIgVP8zxx2NmLSpSl8X IPW8ES0JDHPnATGtDLXkFVD3RNQpTuJoEAarCMXxJTAaJAB1WFLyIIYnEI0QKgDdUEBhCmv4FgpqNYJc DILihc8MUCEtAXW4ZJJrVRTeUTOvECYuHFuyZJWsSGMeNBX8JFPeRRHkPV1LFhFsVXCaMXX9XLNhYZAz YNHaqz7XLEUgZCEqEhj5NLQtDYVwDMZzCIcuXMIkAU H7LIK8OXZiRCNzHI5YMeFvBPCtSYytWILhYKSsUBWnda1AMRMyIUDxIDO6KvIhRFLyNHGkIWcwKHDqUI Q5QZvkHSKzIIScNE8QVmHlFROwDRYpWnFiBPGnJFAswy8FGVZwGMAeMpZ3VzNlFJReQRTiUZwmFMBfBZ U4BpZ1FSIsDNOzDC8FIcFkUKEyVVB8DnTwAQMsCKFo ye3QEYJiYAKzQHp0VlClVAXxYAYuNMuwHYAwDQX0LEt4QYAmKMAkYF5SBpLgNWAlQoJ9WEBxXPDfLRYs jf4RYDYvMFXmBoZnUJCgVEKbQHGfZGydEZVaFSJhIBkzGHWoDQAzQS2EZrKxVADdTsFgJlrmUETyUKKe db2XHWEiITWlVxT0RBDhJJOiNQMjZKizQOGhCZB9QX I1HNLnMOAjZQ0WUoSxQUBzDzF8KWDyTSEsWJHcyn2MMPGvNLMvRTh5UEKkVQCkTOBgWYysOQEnCMZ1Zq I9DLNlJLFkMR8BJvRoPBHdGdK8IDKbRGRuJFAwiu1HNZLySNLyXgNeVPUdVMExAKGpPZgkKXZzMHK8OU L3CNOjRBAbWZ1OBiGxBNOhFel2LVXoUDImDRAsga4G ZORoBHGbVRH0LSOjVEGpASAhCBosWJVrXHI2CzhsNFEiDYKiAG7RVzXzSSDsBkz0OsVvXBVtZULzha4X UNDuMWYhETN7BSOlWTYxNNVgTPguTXZwQNF1HTK4WQCnAXYeXS6FIyTfXKPkQsx4XBOzSNWrWTUbwp8B GBQgULW1EDA8BKUaDELmIDPuVUxmKVJqKRBzSiV5GY OsXNTqNA1SZmJiLMClGTB0MlaxKSFdBPMbha5PRPYqQEQ5JAq1EkRpXVIaOFNyCRo6xvPlvBAmYJm9GU 7FO9GbjaNmWAQBGk5Hu659BDJ0ETTzEn6PZ5jcDa7vNSBdEKPDCp0DYWv1KVw0TpZbGPCvFAU1Q1EqR8 M2XIYdZcK2QJW8UAt2MQR+IDwxODhmNmQwMWFlMzQ3 BEM1IKg9XkJoVUHfCHB3SrflEO0kLPKHVw5+MVdzrRNbeWirTLRQQrSvELKbLMrbQJVTOj5X ID Date Data Source [id number] 12/01/2020 03:38:04 PM EDT [facility] Name Value Range Interpretation Code Description Data Ellen rce(s) Supporting Document(s) Consultation [facility] YPQMPx7yIhETBcCu33/ZZFrvQDRkx5IdLUasNAm5HEtgDZKkG5CyFAO9aX0kKAQ7MGtRJzGaSrZzBFD6 lbm [file] AgICAgICAgICAgICAgICAgICAgICAgICAgICAgICAgICAgICAgICAgICAgICAgICAgICAgICAgICAgIC AgDQogICAgICAgICAgICAgICAgICAgICAgICAgICAg ICAgICAgICAgICAgICAgICAgICAgICAgICAgICAgICAgICAgICAgICAgICAgICAgICAgICAgICAgICAg ICAgICAgICAgICAgDQogICAgICAgICAgICAgICAgICAgICAgICAgICAgICAgICAgICAgICAgICAgICAg ICAgICAgICAgICAgICAgICAgICAgICAgICAgICAgIC AgICAgICAgICAgICAgICAgICAgICAgDQogICAgICAgICAgICAgICAgICAgICAgICAgICAgICAgICAgIC AgICAgICAgICAgICAgICAgICAgICAgICAgICAgICAgICAgICAgICAgICAgICAgICAgICAgICAgICAgIC AgICAgDQogICAgICAgICAgICAgICAgICAgICAgICAg ICAgICAgICAgICAgICAgICAgICAgICAgICAgICAgICAgICAgICAgICAgICAgICAgICAgICAgICAgICAg ICAgICAgICAgICAgICAgDQogICAgICAgICAgICAgICAgICAgICAgICAgICAgICAgICAgICAgICAgICAg ICAgICAgICAgICAgICAgICAgICAgICAgICAgICAgIC AgICAgICAgICAgICAgICAgICAgICAgICAgDQogICAgICAgICAgICAgICAgICAgICAgICAgICAgICAgIC AgICAgICAgICAgICAgICAgICAgICAgICAgICAgICAgICAgICAgICAgICAgICAgICAgICAgICAgICAgIC AgICAgICAgDQogICAgICAgICAgICAgICAgICAgICAg ICAgICAgICAgICAgICAgICAgICAgICAgICAgICAgICAgICAgICAgICAgICAgICAgICAgICAgICAgICAg ICAgICAgICAgICAgICAgICAgDQogICAgICAgICAgICAgICAgICAgICAgICAgICAgICAgICAgICAgICAg ICAgICAgICAgICAgICAgICAgICAgICAgICAgICAgIC AgICAgICAgICAgICAgICAgICAgICAgICAgICAgDQogICAgICAgICAgICAgICAgICAgICAgICAgICAgIC AgICAgICAgICAgICAgICAgICAgICAgICAgICAgICAgICAgICAgICAgICAgICAgICAgICAgICAgICAgIC MuEOImWZAoDJSnBHu8L1gaKHYaZYOrHR2hRDj7Np0+ HCmRWsNbDZE2nfPxlK1FTS8ip4QbARwwUBErk2PxJAs9HK3VNZDyUVlaSV8JDZamrw8VTDOxQOFcmWPU z0kxVsVdICV7HHWkLzkfNU2CJBLhB0isrwGvDUUtRZABNOnfODEVKAdeRZDTYLBgKXMuDkQbWqZjLFTy WDNsQPTLVB7EYiIrD9XndN24JPZFLm9+DQplbmRvYm vFCiB5DQLsw2ReTUr6DS6ZTMDgZslao9KkTjEyASVELAkkNE4WNXU9YVG3JZBgDe8MFSKzT512kzTaPR 5VLi3FXeZeEK9ewb1SQlPqQUYmVkwXApo3JKpzKM2TsQCkQLcNl13ayDn0uaPzrDJPrXY6lGDuIfPCrU wgtzioGHFqFWPfCQUlVY0qESMcDRKkZvY9WMBPPE8O YANuWROcpDNvLDPvXVETKN9CUCnyFXM1FOGyhjMnwPPyXFefBV5JLAAgmmIvLeDwOZHYGMy+Zx4JMV1o i3GdRZggOsDfTO7ogc7VPCwRJtKnZ8G2aQGoN4L5MJhdWu1GZPImHLCrZwUkAJLEZUyaPT9LXB7rctY3 EJ1TgWMmKGKvCDGseZUnUUp2P76epAUhFLxbHD0LHK A+Claudia+Xb4SJCAfARIkYASnVkLhFOVWQnLaW0SjE0HFo3MvC9YgUR29tXnipuVjDGedNR4NEC5fVAIgUZ FSLT4OsUYkfK6tvpZaUFMdZCLZUvXiX94ceNFfUNSmCWQ0JBQpVx6HOSPhF7MtlpLunBtwovNpWLZuGG DFXX5BZBjbkwOuxMWbqXkbXR40dHojZP0SRm7QZmXx NI4yqw8MnOBmUj3AVDCxCG7GVLAiZJXoINSsUXO7LJPhNqMwWUraFZNrIPIiJHB5VCUrYJLaJI8JFgSa ROHjEvV7MJInGWNrLSCjdg5WMTGgOGWoPFNqYZFaBIYsXWYpOAcqHRQwNUSyESX9XWDvDXWfTQ8DKmGx RRTsRTE6ASRmBLOsJRWejs0GXCSiEQBjOxo4YuTgVK RpQDSeBPmcZQRoDHR9YOj1PJFfTRFgNN4HTiLcHYVuYSEgGZwnWIUgVNHklq4XRMPyVDXxQZE8ATIcFU OgTRBfINihLZFnEUZ7VkTdPYTgEQBhTF8LCwBbIODoPOF7RjSbZPNkKAGgyd5JBDQaLEJuAwkrXcUkRF XmSXTeHTzyANFoKVB5MuQqMTYuJNHhMI3UDhEjEDAc HWC9TQepQWJiZQRime7AVGEiFVGeTFFnBfWpSMRxJLXlZCcsWFJlKGW8UoJ1CALxDVIkOS8QQkUzQDDe ZMk9ZPvpPNThTLJdoo2RNBIwEOOsVTa3OdGyGTPuHXXaUGopYMJpGGVyVIT5AKHhASUpKP7MZoIaYBQi ViAdQuaxHRBvLRMxnh3KHQQjYEUcFBAcPMQqKEUrUJ WzRTzgSQKbGIQkBWK0KVZyMYOeBR4DYtRaLHBgZhQvAhllNSWeCRTtly0POKJfZMGxUmH0TPEzYXOhMA NeKOkxSPEfBTOhUdG0XAZwVPKlLM6TTnVuTEQwYeYuHMobKWRpRAVlvn2PCIIxBXMrJBPmEnKxALSoDG MeISgeGAKxEMT1AiOfSSJkEGNzCZ7IHjQwKIMwRfV4 RuHuMDGlRGRxfy0GGXCyBOSrXKZcTOHaIHVcAXUpTOziNPOiBQI8FYQvZMNtJAEzCW1RLoYpZQPhApTo UNMwZGDbNNUgya3UZHKrMKLwQrBhWEJdISAvXRAlHXcnXFLjFKM2SREnSSHbXNFtKT8XWyAbLWAsTubc HaEjCCXzUWGybq0NDTEhXSVmUZWrRrIbSVUkWNXxLW dzSTKjJIO1JYR4TXKvNZZrDC4PArFlAGouBXCALzq2HOwiK3k9CDEmJK1VC3Fzy9TjHoqgIPBKJGhjEX 8ipqXdZSZiWz3HD9bWNivkKsT5IWRhFPJfXIKaBKYkMOlrIpqwRfXcGkIdMoD3Ax8uWEOaTyJfOWH6JC ZbGRS6EBXrKAVjA8VyVPRlXoIwGXa2YzNsGA3BBl9JJlS5OKG8iHReFd1GDpx0EOJKViGlSE3XETi= ID Date Data Source [id number] 12/01/2020 03:22:17 PM EDT [facility] Name Value Range Interpretation Code Description Data Ellen rce(s) Supporting Document(s) Leukocytes [#/volume] in Blood by Automated count 5.1 10*3/uL 4-10 [facility] Erythrocytes [#/volume] in Blood by Automated count 4.29 10*6/uL 4.6- 6.1 L [facility] Hemoglobin [Mass/volume] in Blood 12.8 g/dL 13.5-18 L [facility] Hematocrit [Volume Fraction] of Blood by Automated count 38.5 % 4 1-53 L [facility] Erythrocyte mean corpuscular volume [Entitic volume] by Auto mated count 89.8 fL 80-96 [facility] Erythrocyte mean corpuscular hemoglobin [Entitic mass] by Automated count 29.8 pg 27-33 [facility] Erythrocyte mean corpuscular hemoglobin concentration [Mass/volume] by Automated count 33.2 g/dL 32.0-[facility] distribution width [Ratio] by Automated count 13.0 % 11.5-14.5 [facility] Platelets [#/volume] in Blood by Automated count 212 10*3/uL 150-400 [facility] Differential cell count method - Blood [facility] Neutrophils/100 leukocytes in Blood by Automated count 69 % [facility] Lymphocytes/100 leukocytes in Blood by Automated count 19 % [facility] Monocytes/100 leukocytes in Blood by Automated count 7 % [facility] Eosinophils/100 leukocytes in Blood by Automated count 5 % [facility] Basophils/100 leukocytes in Blood by Automated count 0 % [facility] Neutrophils [#/volume] in Blood by Automated count 3.50 10*3/uL 1.8-7 .0 [facility] Lymphocytes [#/volume] in Blood by Automated count 0.97 10*3/uL 1.2-4 .0 L [facility] Monocytes [#/volume] in Blood by Automated count 0.36 10*3/uL 0-0.8 [facility] Eosinophils [#/volume] in Blood by Automated count 0.23 10*3/uL 0-0.5 [facility] Basophils [#/volume] in Blood by Automated count 0.01 10*3/uL 0-0.2 [facility] Nucleated erythrocytes/100 leukocytes [Ratio] in Blood by Automated count 0 /100{WBCs} 0-0 [facility] ID Date Data Source [id number] 12/01/2020 03:23:04 PM [facility] Name Value Range Interpretation Code Description Data Ellen rce(s) Supporting Document(s) Magnesium [Mass/volume] in Serum or Plasma 2.0 mg/dL 1.6-2.6 [facility] ID Date Data Source [id number] 12/01/2020 03:23:04 PM [facility] Name Value Range Interpretation Code Description Data Ellen rce(s) Supporting Document(s) Phosphate [Mass/volume] in Serum or Plasma 1.8 mg/dL 2.5-4.5 L [facility] ID Date Data Source [id number] 12/01/2020 03:23:04 PM [facility] Name Value Range Interpretation Code Description Data Ellen rce(s) Supporting Document(s) Albumin [Mass/volume] in Serum or Plasma by Bromocresol green (BCG) dye binding method 4.0 g/dL 3.5-5.2 [facility] Bilirubin.total [Mass/volume] in Serum or Plasma 1.5 mg/dL <1.2 H [facility] Calcium [Mass/volume] in Serum or Plasma 8.4 mg/dL 8.6-10.0 L [facility] Chloride [Moles/volume] in Serum or Plasma 104 mmol/L 98-107 [facility] Creatinine [Mass/volume] in Serum or Plasma 0.79 mg/dL 0.70-1.20 [facility] Glucose [Mass/volume] in Serum or Plasma 159 mg/dL 70-140 [facility] Alkaline phosphatase [Enzymatic activity/volume] in Serum or Plasma 68 U/L 40-129 [facility] Potassium [Moles/volume] in Serum or Plasma 3.9 mmol/L 3.4-5.1 [facility] Protein [Mass/volume] in Serum or Plasma 6.0 g/dL 6.4-8.3 L [facility] Sodium [Moles/volume] in Serum or Plasma 137 mmol/L 136-145 [facility] Aspartate aminotransferase [Enzymatic activity/volume] in Serum or Plasma 11 U/L <40 [facility] Urea nitrogen [Mass/volume] in Serum or Plasma 11 mg/dL 6-20 [facility] Osmolality of Serum or Plasma by calculation 287 mosm/kg 275-300 [facility] Creatinine/Urea nitrogen [Mass Ratio] in Serum or Plasma 14 [facility] Bicarbonate [Moles/volume] in Serum 22 mmol/L 22-29 [facility] Alanine aminotransferase [Enzymatic activity/volume] in Seru m or Plasma 6 U/L <41 [facility] Anion gap 3 in Serum or Plasma 11 mmol/L 8-15 [facility] Glomerular filtration rate/1.73 sq M pre dicted among non-blacks [Volume Rate/Area] in Serum or Plasma by Creatinine-based formula (MDRD) >6 0 [facility] Glomerular filtration rate/1.73 sq M pre dicted among blacks [Volume Rate/Area] in Serum or Plasma by Creatinine-based formula (MDRD) >60 [facility] ID Date Data Source [id number] 12/01/2020 01:57:07 PM EDT [facility] Name Value Range Interpretation Code Description Data Ellen rce(s) Supporting Document(s) Consultation [facility] PTMCCm7kHiVDDrFp02/HRNbqBTGbq4IjFPhtANf9WEdnWDBlQ2FvAFT5gS8jQNB9TCsZXnUoJjGaNAI6 lb UaFmgAMdKaHREqEuoRXxLmUIzlVzggeEPhAV7YaEM6HIHhK85oTVGpYHGeQ6NpHTC5VtI+Vt7OUMKqjZ OgXO5JKspD7N0cA7i9Eq2+Vfc/wTfd1mYpZnn91xwFljBIJTo4UvofCflSI5A1Fpw6BlLaI9+yJT+6Y/ rwWBoScputQJfk/qkfarVassOY+u/ftJr5Fkqm+Z/q 2dIX2HkY/voXVndzRdWt/uX1Fn3KU9SB2PM28uKvBgB8mdawMaxfX+vz8WpYuvErb3NJpFHPg3IwOY3l RDbFRXm7yB3anByBdGhCWmSwc5as2lhv7OEhtjlGtN1I4rLhq+K2jhlf7lqhV+prALNU5swr0kaziA5/ TzCEynHQ6ByQKo+u1fxtWgPgCqBM5WaDaxIz+Uveog WHuyNnQeLyVhkbk0RknYS/KrzQFcp/sfEmouH5jRu6xne3W8VyiZxBtUa0reoEHh/WIbttR9qmQfMtPJ ecGEqw0+KhRntfEGUvP8h4DucnHPuMVQajXZ+jouHhTvPmT1lf3jGjLInRwpnvPGAfceeB1RTaijI1/2 HUySgliqxOw23x/2Sb3viWbY9PR99jDumL2raSZRpO 7BOh05nXUDTcznKkn3DvM3gookSfZSuh7+8QOhur4HM3tP7vjoNqUgt8d1r0x8oHoenNDUiE7zkIzEje AkmzEs5VpLMMUjTglUolzuDYLLhN37uGKLst6RWpQ+2vA8lBJMtwvl4JSJ95aMIaPriNuxFkFaDNjtHk GMDpakrwDfVGHYVYQdBr6MKAV1MGZWLAmFJiZV9ogM [file] AgICAgICAgICAgICAgICAgICAgICAgICAgICAgICAgICAgICAgICAgICAgICAgICAgICAgICAgICAgIC AgICAgICAgICAgICAgICAgICANCiAgICAgICAgICAg ICAgICAgICAgICAgICAgICAgICAgICAgICAgICAgICAgICAgICAgICAgICAgICAgICAgICAgICAgICAg ICAgICAgICAgICAgICAgICAgICAgICAgICAgICANCiAgICAgICAgICAgICAgICAgICAgICAgICAgICAg ICAgICAgICAgICAgICAgICAgICAgICAgICAgICAgIC AgICAgICAgICAgICAgICAgICAgICAgICAgICAgICAgICAgICAgICANCiAgICAgICAgICAgICAgICAgIC AgICAgICAgICAgICAgICAgICAgICAgICAgICAgICAgICAgICAgICAgICAgICAgICAgICAgICAgICAgIC AgICAgICAgICAgICAgICAgICAgICANCiAgICAgICAg ICAgICAgICAgICAgICAgICAgICAgICAgICAgICAgICAgICAgICAgICAgICAgICAgICAgICAgICAgICAg ICAgICAgICAgICAgICAgICAgICAgICAgICAgICAgICANCiAgICAgICAgICAgICAgICAgICAgICAgICAg ICAgICAgICAgICAgICAgICAgICAgICAgICAgICAgIC AgICAgICAgICAgICAgICAgICAgICAgICAgICAgICAgICAgICAgICAgICANCiAgICAgICAgICAgICAgIC AgICAgICAgICAgICAgICAgICAgICAgICAgICAgICAgICAgICAgICAgICAgICAgICAgICAgICAgICAgIC AgICAgICAgICAgICAgICAgICAgICAgICANCiAgICAg ICAgICAgICAgICAgICAgICAgICAgICAgICAgICAgICAgICAgICAgICAgICAgICAgICAgICAgICAgICAg ICAgICAgICAgICAgICAgICAgICAgICAgICAgICAgICAgICANCiAgICAgICAgICAgICAgICAgICAgICAg ICAgICAgICAgICAgICAgICAgICAgICAgICAgICAgIC AgICAgICAgICAgICAgICAgICAgICAgICAgICAgICAgICAgICAgICAgICAgICANCiAgICAgICAgICAgIC AgICAgICAgICAgICAgICAgICAgICAgICAgICAgICAgICAgICAgICAgICAgICAgICAgICAgICAgICAgIC AgICAgICAgICAgICAgICAgICAgICAgICAgICANCjw/ wLFlU2koqQMrkfP2T7wmOx5JMb8NOQ5mh3UxLPByUSkfttZoRcqKNdZcRLQhCjfLOew9APaiFW4UxMBb U4MbY1ZfDHsjZO5UFCZnJKAkcKHdODMiIUGwOcY6YXTdFEhfMT2ElJHqXKpkLXWgVTNeHnZsVWJsEP8C XREiN604wqOhUr3FUh8OQoNoYM1cym5WLoZgARQdBi sJTjq0FPlhLF6IsBTklSWuQsKxJTXYByWjL2zmb0VvQmKrIZFQPWbuHS0Ho8SpiZDzMMn+Wz1PRF0uy4 ZpUBzcZjUpQD0pvy9DSSyUIrXhX1SzsFgfPAItfaB6nKSoKIV3WJsxuH0fQBIqYAD5cWHbOGePX2zcNK PkTEOmCG5iBSYqKSHiCfV1ZVRSOR5NAUHyPXXezNFs FSLlNMGGZL0HQMpsHCU7VINngkKxoBOmNEybEU3CYTVgobLnLrWuJOAQRZt+Pm8XHO1ri0InQMdlEXRy YT9qpr8KXSrCHbJjZ4Y9tVMjA5C9OKpdEi3TJDWuHYRiXaVpLSDCSBnoKT4CER4mpeT9YL8FxGTeYZUu EIKdaOKyERo0L75krNDvAMnwGV5ZDGU+Claudia+Pg0KIC SaCNYoFOCyMeIfRYQIVvPuR6BmH6FEw6EdN9IqZI18xLxsjjPgJZreVB4IXT1pHRAvYUPRKN4IcEHrfO 9agjReQaRoHSMDYyVqA60blEDzTSIxBEYmBSQmBn5ZZZKeA4JypeAszEnpsoNsVVWuKGVVSW9JCGvxjs KgmZOjpIehBF10hMltKT3MRi2TMcHlEB4qul8WlQIl Op6CPUPbNU8VPISrXDEuPJRrYRZ1OBScBbJbWXhpSZBbQFZgNDJ4AWBhZGMtBT1XJsXmXXIcJMYnCDha KDZrWQHjxg4GWFIlDVPnTui9FeCkICYqPPRhPTutFGGqJQSrSFU0YBXuNYFwEM1YLgRhPEPjPDE4MYMz VZVrBYFupz3AMCPuEZIuCkfhTrKmIODaECFdHVbyDG SmSBB3XTW8GRBgPVJtZV1GAzMdKYIqYUT0SNVoSILyWTVgsd2XPUDnLQGhSvA9DJBwLIMnQKApAXnnCB ZtQYG5RqY5IFBlFDFbLP9FCnTbRAEkXJY7TOreSLOuHMVtlg8RHLMyOFAdHdruEtHeIZNjWCCsGKvvUZ ZaOXQ9KMQ8NWRbFUGoFJ0KJfGhVNUkFAaaRRVqHAAg VGXmip2VEMGoODTzEJK1AAPxNXThYVFmMFbyQOSvBNM1EEK8MPAkWQTlRD8MBwImNFKvJKb2YOXpJEKe QVUvgv5PSADiXBSiMGMpXUVvDNQcBSErRIubDPFcWOKvRBYuMCZdCSNiKZ7NMjHkISEhFKW3SYEhZKEu FJYpjx3QVIDzROIdXLTgExBhMSLrNHTwBIpjXLQzUQ CzEInnZYLbEMCpOK2NYcUqALRwWYD3VYBkOFBwGFCndd1ACQEvKUZkXrN2CCPcRBHnKUEeIWn5vpJdhO DxVCz2AJ4JX9QzrgYxPoCBGv7Gc674MNV7HEUoKd6RE9usEm7nCIKxHLOFXj3KBIj0LBJ3GrGvVmGqOF L7OTUlXBAhS4TjSFC8MCD8ZPP4DdF+IDwxZDhiYWNi RHS1HsXkTTF6E2VwRuO0QQO3SpP6FXv2PN2yLICOUx7+NAttxSYgkSeiYILBEqBvHnX7WEokLSVPIn5Z ID Date Data Source [id number] 11/30/2020 10:18:16 PM EDT [facility] MR BRAIN WITH AND WITHOUT CONTRAST [id number] FINAL RESULTInterpreted by:Mariah Houser MDINDICATION: Brain metastases [...] rce(s) Supporting Document(s) ID Date Data Source [id number] 11/30/2020 04:23:58 PM EDT [facility] Name Value Range Interpretation Code Description Data Ellen rce(s) Supporting Document(s) Consultation [facility] DLJAHg4hJlTSWdXd93/ICWalVFXlm9UnLAvsGGo8ENjrBJOhQ2ZlPXA1qN6rPVJ0VAlILzPgLnDsEUA5 lbm [file] ICAgICAgICAgICAgICAgICAgICAgICAgICAgICAgICAgICAgICAgICAgICAgICAgICAgICAgICAgICAg ICAgICAgICAgICAgICAgICAgICAgICAgICAgICAgICAgICAgICAgDQogICAgICAgICAgICAgICAgICAg ICAgICAgICAgICAgICAgICAgICAgICAgICAgICAgIC AgICAgICAgICAgICAgICAgICAgICAgICAgICAgICAgICAgICAgICAgICAgICAgICAgDQogICAgICAgIC AgICAgICAgICAgICAgICAgICAgICAgICAgICAgICAgICAgICAgICAgICAgICAgICAgICAgICAgICAgIC AgICAgICAgICAgICAgICAgICAgICAgICAgICAgICAg DQogICAgICAgICAgICAgICAgICAgICAgICAgICAgICAgICAgICAgICAgICAgICAgICAgICAgICAgICAg ICAgICAgICAgICAgICAgICAgICAgICAgICAgICAgICAgICAgICAgICAgDQogICAgICAgICAgICAgICAg ICAgICAgICAgICAgICAgICAgICAgICAgICAgICAgIC AgICAgICAgICAgICAgICAgICAgICAgICAgICAgICAgICAgICAgICAgICAgICAgICAgICAgDQogICAgIC AgICAgICAgICAgICAgICAgICAgICAgICAgICAgICAgICAgICAgICAgICAgICAgICAgICAgICAgICAgIC AgICAgICAgICAgICAgICAgICAgICAgICAgICAgICAg ICAgDQogICAgICAgICAgICAgICAgICAgICAgICAgICAgICAgICAgICAgICAgICAgICAgICAgICAgICAg ICAgICAgICAgICAgICAgICAgICAgICAgICAgICAgICAgICAgICAgICAgICAgDQogICAgICAgICAgICAg ICAgICAgICAgICAgICAgICAgICAgICAgICAgICAgIC AgICAgICAgICAgICAgICAgICAgICAgICAgICAgICAgICAgICAgICAgICAgICAgICAgICAgICAgDQogIC AgICAgICAgICAgICAgICAgICAgICAgICAgICAgICAgICAgICAgICAgICAgICAgICAgICAgICAgICAgIC AgICAgICAgICAgICAgICAgICAgICAgICAgICAgICAg ICAgICAgDQogICAgICAgICAgICAgICAgICAgICAgICAgICAgICAgICAgICAgICAgICAgICAgICAgICAg AOYqWKUpBFAwNPGmOXJzBRXlNYPpLGZrUKRoKIJwXXVbWMSjNQSyWGNoHBMaQMBxFWg9I3dtYYFqTCDg GP5oAGh6Ek3+QPpUKlCfAHZ0esBzwU7MMC0jx3ByKC vwASTzq4FyVFz9WG5FTVSlTHttZB2FULcnwc1SBKKeKGPfrVVIa8vdQxTgEHR6EMHfIfjlJO8WDKUlZ4 zrsfIpKCIuRMNOEPacMZUTTDrnFSDANHPaBRMsQlKmMdTlEGTpZJFpYCDQQTV3AEKiSfDvIEHaLYUbAw NfQKZAES6NMfXhV7HwbW97ESqTTd6+DQplbmRvYmoN GuTkCKYda6QcDIg5CD7IKZWpEdtmp5VjAXWpYVRTSXbkPS0BENP7RJFgVYPvVi4SVOWlO599xuRbPO5S Mq5HTyZiAO8piw2LAEVoVLXeVhvAHoi0EDidJL0ErEJkCPeEn19slNi6yuWlfZIQfnkaqb8kFGcvY5uw zNq3tJ4IxEWpCPEEBXIyvNNfOL75UnGkOaTkDNp8UW LaZR4dQHzmBA7BHPH0SLrlRZHiMSQfV8eTLdOgEQWlPfYrsFdyXQ4NUdBbX2IxunDwvWL2JMCoSSJVVc 4+HLkqtyOdKayOWsYkIHKzd5OmEYn9NP1NCOKpQAgwSU1WZUTbjA4jBPcsAW2YJcIjUPVlISYXXjTpC8 6lvQGbDXo6B6NwTfPuDSCkXpueYJDuYTofWyGoHPKf WyBdDQogID4+ID4+OMcwPH9XXZdhtbXmBKCkPu5GEWWpVACjCS3wFVWaRGRkU4O0wGhrXOXQNtExO7jm hjkkUW0vZSHhW261qIujbpCwTGMkZVLdKz6QPSHvMGH3YVMesLAdCYXhSUCFARwaDK8ZmNLmMUM8tH1i OCwuNFQhAYSaS4oIRqAclDmwNB81lYjywcPouYDbUY o+Hd9VEQ5ne6NwEFv8ouLcCPvjUVU9KGwiIWAwLYQlGTEcDHR1JLC2XYTJMuLrNEQlSOAgVKmzOAKbRG Clvj6VVWNqPPK3HfG2OzChZTPrBATlXNpjEIOcYSU8Sid8QKUfVRBkJS0EBwBvWRCoIWSqXQpjDOIyJV Grax5JUHSkLRAzLMM3JXHqQHCsDQWcXYzbKJDyMEG3 DAxvZBBjYPEaOW7UAtQiHFJeOZejYJuqUMOpJIVxmn2VNBKvJKIbPjZpQzGrYNMrUPUeTScoDPGjAYRa PQp7FQQjZKWjMI0RGkTgXOCcINVvMPFqOFWmPAPrgg6BMCFxSTLhZjR4XfZlMOLxVZGjVJfuVVKjERYu OYP3SSObPRGfVD0ITnKaQXXxOYo6SDHhIZYsIZEbba 0HEVKsNUUaYlt5WuNnRQXaJOYhAScxUFLyMWQoMyPtRGWpFTGdDE4SOlJhCMCsMpQ8BFRiHHWoCAHiev 0GBGTtUENmKYM6LsOnTEUzKXToALkcQGMgNRY8PrH6QGMkDLEwHF9GNxKfBVQmEiVwAJZrWZTkTEYcha 8QADGrNYDjYzWyVYByJRSyMCFvOUdbASLlPXH0Kigl GJIwBKYyGY4ZJaVjNFEzDkS0VBvdBDVzIGBsln6EYACzTUFjUsd4EHGeXEMbFYImWUpuFKInSQI3NUP0 NNIfVTSrCK7WVkCqCVQqUqrmImusDAJqEAXlib9MHHHzXHGoXIP1KVHcPSQsBRPwVVgvKOKnKNQ2Yses VWHrSABaAE2RDfJfMZFvQtx2PhmsHJBsBVTuoh3QSB DsOJYuTLQfRWDuTFJyBORfHQztNQQgWDF0NqM0UXUmGEWxMQ1QMvWlAPRgHqi1CCjaRZCuWRKute4RPT WnYAW2FDNjLmItUCRnOTIuSRgbZRNwSNFvMcLnTVEqQIJfBS6INhHhSWHsQQA3UtRtJBOvTUOseu8AKN CqWLB8EtT2SBMrWFTuSUYyKNtoRHYbBYShPqD7KUBa CXWtOA6CMtLhRSOiHRExGEbdLJCkFXQglt1NCFSaZQX7VeY6ZfUaTQIzDHGvZSmhDNObKQTkWCV4RMEv FTPoHG3OOtKeRSQqVUQ7TXdoCWPrFBUyek9QECHrIQT3YKV7BYLiCNIwHNOaQHwoHKPrHQP3NYKfTNTk JQFdTM2ISoRwLCVrLXH3LpHyUHUtJHHbuh4ZrHHmyE cyoy4HQHuCQu9YgQvlEMQ3UAexDx2epSS2GhRnHORWEk7BxdLeJETpJUAZFDcgSIQoHEN5VoQdOnw7LN BmYKM5JKUlSvKwMRO7R1UcMfKkK3CoOjD8XkGdAZJ0ABwqBSKyRFJiZdY0NBU8EymnRFVzW4PdD5Y+IF 0gDQo+Hb5Ie3AlvpU4kvHbREh2NGlxMo6AFMUCD2VMWu== ID Date Data Source [id number] 11/30/2020 04:09:58 PM EDT [facility] Name Value Range Interpretation Code Description Data Ellen rce(s) Supporting Document(s) Consultation [facility] CHNJNg3kRdARZfLk11/VWBguINQuc8CcRXdyKQj9SIhjGOKnD8PsSJA4bV8vGYB8ACsALwVyZkRlCUV2 lbm [file] 8pBOF2oYWLlGkSC1XrJn1qUsFYGBg0EYslvVAl6BQTLjE/vT/YOBJ49JqDG9e8qfJtnrr9tSMLf//[employer] [facility] ayZlWRZv/33/CfTfES1lZN/9S/Hhs3r0/xEHs2hOP/1vfH126Ww+fpGR7iyiSp8wNg15ttj3C/xjY/vg 1T83tt+46bw8985V2r90Co5vqQr6+Nvjw7f/687ezu [file] G8KKYrBaS6WEU8XbHsZANhQQJ+LN7tLVz+Hg8Za2WqneG9hiWsWHt6JtL5Wk7ARPFTL2NAQw== ID Date Data Source [id number] 11/30/2020 02:47:27 PM EDT [facility] IR IMAGE GUIDED NEEDLE DRAIN PROCEDUREFI NAL [...] rce(s) Supporting Document(s) ID Date Data Source [id number] 11/30/2020 07:38:39 PM EDT [facility] Name Value Range Interpretation Code Description Data Ellen rce(s) Supporting Document(s) Carcinoembryonic Ag [Mass/volume] in Serum or Plasma <3.4 [facility] Levels of CEA should not be interpreted as absoulute evidence of the presence or absence of disease. It should not be used as a screening test for Cancer. CEA values obtained using different methodologies cannot be used interchangeably. This method is manufactured by [employer] and is an electrochemiluminesence immunoassay. ID Date Data Source [id number] 11/30/2020 07:40:30 PM [facility] Name Value Range Interpretation Code Description Data Ellen rce(s) Supporting Document(s) Mubth-3-Ololunghynw [Mass/volume] in Serum or Plasma <9 [facility] ID Date Data Source [id number] 11/30/2020 07:59:29 PM [facility] Name Value Range Interpretation Code Description Data Ellen rce(s) Supporting Document(s) Cancer Ag 19-9 [Units/volume] in Serum or Plasma 93 U/mL <35 H [facility] ConfirmedThis test uses [employer] CA 19-9 el ectrochemiluminescent immunoassay. Results obtained with different test methods or kits cannot be used interchangeably. CA 19-9 is useful in monitoring pancreatic, hepatobiliary, gastric, hepatocelllular, and colorectal cancer. CA 19-9 value regardless of level, should not be interpreted as absolute evidence of the presence or absence of malignant disease. ID Date Data Source [id number] 11/30/2020 12:34:45 PM [facility] Name Value Range Interpretation Code Description Data Ellen rce(s) Supporting Document(s) [facility] HSXPZq1oNeVZFkMo90/UGNkwPFYnj5CmEStmWZr7UVeeBPWmP6SiYWP1xD3cDKT1KEeZUlEvExAqRQD8 [facility] [file] AgICAgICAgICAgICAgICAgICAgICAgICAgICAgICAg RUJkIMUzBNLkEKTgXVWdCIAqJHWoOYBxGLOqPI5JOBLkYRNkYGHwUYPgPOEvVSWiWCIdDRCqFGZlLRJd ICAgICAgICAgICAgICAgICAgICAgICAgICAgICAgICAgICAgICAgICAgICAgICAgICAgICAgICAgICAg OAYcWEReOWTqJS1RCMWuXUTzBJDgGHWoHCJcWZHkVB AgICAgICAgICAgICAgICAgICAgICAgICAgICAgICAgICAgICAgICAgICAgICAgICAgICAgICAgICAgIC FdNAMoYJRoGHGeZXBoQUMhRRIiJZ7KDWDvOHBoXOTdJMXyVOEbPJObSDGdPYFdNJNyTQXjLDVgMNCwWU AgICAgICAgICAgICAgICAgICAgICAgICAgICAgICAg YJZjEZZeKZYgXTMcTYVsFQYtOLGwUQWcYKYuDJStSM6FXWPiIVIhCTMqLFMqEUPdQIJrUJOxIWDeWUIs ICAgICAgICAgICAgICAgICAgICAgICAgICAgICAgICAgICAgICAgICAgICAgICAgICAgICAgICAgICAg FQRrOARqLTDkOTPxMS0FYYLbSGDjAVYmWRUsJAMqZZ AgICAgICAgICAgICAgICAgICAgICAgICAgICAgICAgICAgICAgICAgICAgICAgICAgICAgICAgICAgIC MtENLdCIJuIIIhPITeWTDsQJWmSVUfPT7OMTTaRBEnMJEuSLYzLZJpTEFdECOmRGRjSPXkMNWrVIUrDF AgICAgICAgICAgICAgICAgICAgICAgICAgICAgICAg XFChIIFxANAiTDZqEMCoSHGyZJRtALOoWGSePKZuBNJjWN0OENJjYDJqZLHjOMRmDFEmHDNfQSDuCHSv ICAgICAgICAgICAgICAgICAgICAgICAgICAgICAgICAgICAgICAgICAgICAgICAgICAgICAgICAgICAg OAMsXWRhOWKuHPTpZDKdMU7UFBNdLFLcNWEtBPGlDJ AgICAgICAgICAgICAgICAgICAgICAgICAgICAgICAgICAgICAgICAgICAgICAgICAgICAgICAgICAgIC ReTNXwBQMkHXNhABKoVESwOGPtRYNtLBJiLF2WGVJvWAKzSXLeJDTxAKXiCAWiXEOfYAHcSFGkREFvZL AgICAgICAgICAgICAgICAgICAgICAgICAgICAgICAg VDGqFDYrJERzMXDbXZXtFNXiYEMnMBTvVSYbCHTwIVEhEQPiKQ5UDS13mELjy2H3ZLMaEJ7lwvh/Pg0K FPfeyfJedWHyXW0CWkPqCI0ogz8LItHuXP7faw0VFKpUCwCmV6J5pDGhIRWpVALRMzSqD72fIUdaYh30 FUpjLLNmUlOkXAi8Ci6RTbAaS2oePJPvZdE4FNHpMm J0XDLrYjX6RMYkAyTdTDXcZLFmQUTpQGYVDFM5BMFlXbTsZYocDG4Go4FhcAR0IXu+Og2EVD5hn5NmFB x3BDWwXP5exz7HNRpWUeIwX2BjaiU8BFUxFVZyMj4DKBIrGFAkoNK6UvQtYHWLXaSlF6UyqK74PKMSMl 4+IOexfuRiHstJEpAlPONhx0CyNIf7AA0BRSXhDLx4 jBGgN69om9MelEOqGacuWe5pTOstRWPtT8e5jtdol5RksZwzGJCdUUDaZKTkVO5kPAIyWXC1DqAnZHNP ME1KEIWrTGZmpGEtXLTmLFBRPE7KVAplFLT5IZEsrcQrwQGjROrbSW8MUZSbxyGtRDKdGLAOAUg+Pg0K SX7nc0HfRCa8NdBuJZ3lof8EMXhJPnOqQ0G5vMJcJ2 K4RDppMl3RJRPqMTVkUvfhCIHENEngIT9AWM0lqfV9VF1HjCEiDCRqOSPgyAQjKJn5S94kvWOkQRkxUJ 0KICA+Claudia+Jq8LHOZwKRKuVRWpMhEhRPCTEcPmY4ZxJ4TWk4DeU2YzQZ98sKopxiUgSRvrUK6PEE9hTM KaVUJKKA4RvBPxjG2mdgT3OHAdLNYGQyAdZ49pqWTy RLPtSGByCHVhJd1XAQGyH5NwbbJqjSfoyqBxWFGbDMIXUR7KPDkouhPbhHMqkEppCO93rNmoAZ1VUk0P XiLoTQ8ojh1TfPQrMl6UPPF0LC1IDHJnNDNcCYGzJFX7KFEwDvAtIGuzJWDmDTPxFDT0HXHkPYOyDQ1N HcSdFVYxOXE5UMpnYEDeANMnnv7VKIKlKZM1IeD7IJ XtKPIbQFGhTAewFJDeGWQcGDX0EVWlFTDwAU9PDdWmFKTtCZW0WbydEUVeTKNpar9YZZWzNCYoJzi1Ec IaCMYyJYAuHNkqQSKxPHR8KkC3GIMlOFWeEF2XOcUdGFRfCHj8GDxyNFByOWVxnu2HOCGrKFIxTWVyIO VgBRLxUBCvUKlpQRItORMkWnJ2LULhAVYoAA0TThAs FPGdKXE0ATYrXFNvDQTlru0SQNVoRCTdWUo7VNFaLXFkSZGrKDkkBMYwTHTsFCF9HODyTGAbGW1OTvCz DFHbMfTkGxGjRCVcZBJyys0PNZFvCTXsNOStDUTpWPUsRXPmKEffOBTxLXX4HsFvAUZfRCRnXP3IJeWv LSAnChSuJOXiBIFdYWZzlj8YZCXgYMKnWTA2YCGhWO PjWVExMNtrAHItSNW6XfwsRCWqOGAtYS9EOrOwRHDwTmO1ZsJsUVRnTXGkmh7SILUfJKEeRxyiAfMmIW FbBNLoBLdsYHAnBAV9ENEwRJWlXLZrWN4KNdXyAVIkDuj9WkdmYFLbEQFzkh5RYDHxLXIqXPG7VEArPX KuHDCsGByyMKQgWZT4ElG9SVQrBMAqTX1KMiOgAAJn ZsvgIatbUAJuWSTihn5WRJGgXTJfDONyYpRfOSPwWMUmAQjhZMLtPGC7MmX4HFIbRUZbHP2DGnCgHLKk NCTqDVFpTPFoYVJmws3ZDCNkKUL9WNXmKmVyLMJeICQaBVbbDKHoSVIcAvHvGBQmQSZvPX4RUsZqILQy TLP9BfXzVRYlSAOmll4DJMKvDIR4MiNeNaWwWAZsHW CvDCevHGBtSEFtDXUkCMKkLZEdMC1FZpRkFGHiYXMrStmhTNIrOGRpjl5EVVJfNKF3GvShEgCzBSGgIP RdZZuaRWCvRTY9AeO0THTwWDWnXO5TNbYkBXPqGFT3GRCgBXPxZMKmte1IHGVcZXV8MTRtGVZiRBOnRC TzNLynYZWaKLW8DRMcEHCwITHeJT7ETuOwOOUiYJH7 GnUeHQPhRGHxgl1TKLUrQDR6LaO7QzWlEEShJZRjWXbvISWgTMR5XlzkGPLnVYAtRZ7RZeMmQUjuHFDO Xxx8CDyuK7f6YFU1OP0NA0Lgw2HyUNRlPYKIAFpiWB3gwwWdEHMoXe3WN7qJLkixJhRmKCIwKyGvRMKx ROF7ZdguDnh9UlQ5ZJXuYcM4RL5eUUAwATOqUCXoJq SpTiP6Vsf8L7CeVQP2DIm5WgM6KEr8EmXgLJ1ZRu5RViU7HYH2qYIsGm3DMUfmJiWEMzPaBE8IESj= ID Date Data Source [id number] 11/30/2020 08:25:07 AM EDT [facility] Name Value Range Interpretation Code Description Data Ellen rce(s) Supporting Document(s) History and Physical [facility] COKYSu3oUsSZTnHl47/XZFxuUCUde1DmQXjeBQg3MWssSIUqK5DrFWC3qW6aNFY8ITrPNvUoUxJcIAO0 lbm UuVnqYMrMrAITlJqrBLyZsPDtkHznqxEGpRD5AoRZ7VOEzD73aYQWbZHGaE7BkJVAzBZA+Lc5XFOEnmJ JpXS1FFuqB4Xiqj+G3Um4j1N6EyNWXBdk0yKCXOhvNqKy5y6DzxU12OUS4IiObnAD2HWx0h63/LyWRlo lD6OIshB6egljQJ9eCiZYuBEoQc9K968nBqTOCMEm+ ue2KjtPCTV5hW9F/tjxtsehr4NFFDWPFXOXWrORn+XHPO0B1YJVMzaEBgyYHVRoYt9tTFUinAHV8/A4N ogqlX8ZI6QZposGLTPbrAiC7nv/R8L/ofIi+0Q6V2MLNGvx+VEqLU4GQEzGTEt3FhOYmNjJKOiVMnwhv ukxcM0HEVzFLjrWQLwE6rGa+V86WJ+kPG01JnfORPH p5XlZmyDOEy1LrsWVy4RpjPyhMPe6dQ8HUgQOCSy8z43FS30uDQUC0N36G6wjNV8dyahMMNBL1lXPqDl pGnkJoaruwrSkl0FfLaapv83m7q6HEU0k1m+xmti2MugmqEq1HabL3Sm36McEKAYGjXWQotv8++FNFQ2 sr8WOi/fuz0FfRMlpEXgMTxSCPigfEi3JWpUZozt1u KJRWpzc/3HM5hBJEoFkL9nbEs7T0Fqy+nSMSFjGeIG5UMJaXhulV08uOoiN8cO6vy1vWUQLWoQNWLmAq TS5QmYY519KCcJq6CZi6V87Rf3p9km4N69C7aj0GCv0BIL3wrWVEZStdPJhHJGG7kzvenmFYTJYUQAFH 0OqDbLlYSpnhXGtK1CVqgbBohLg9oEqJawNuyOUSiB WD5kDsR/D2tQoNRFEtek9SRncHMFP/tiDbsWLQ8NL7lydVkTtKnqA004dNTdcDBet0Q87CqfU0r3hkM7 0IQ/FfUmH64nllJHB4PMsRnZfn7OOVXYKGc5s0dLgKGqd7VeQpRWYaS3oT2REGkauDH7NUbDUjWFcXrV dxHlUKx5b2D2yhkIYquPm0DjameASHuQMSHx6r+Iris [file] ICAgICAgICAgICAgICAgICAgICAgICAgICAgICAgIC AgICAgICAgICAgICAgICAgICAgICAgICAgICAgICAgICAgICANCiAgICAgICAgICAgICAgICAgICAgIC AgICAgICAgICAgICAgICAgICAgICAgICAgICAgICAgICAgICAgICAgICAgICAgICAgICAgICAgICAgIC AgICAgICAgICAgICAgICAgICANCiAgICAgICAgICAg ICAgICAgICAgICAgICAgICAgICAgICAgICAgICAgICAgICAgICAgICAgICAgICAgICAgICAgICAgICAg ICAgICAgICAgICAgICAgICAgICAgICAgICAgICANCiAgICAgICAgICAgICAgICAgICAgICAgICAgICAg ICAgICAgICAgICAgICAgICAgICAgICAgICAgICAgIC AgICAgICAgICAgICAgICAgICAgICAgICAgICAgICAgICAgICAgICANCiAgICAgICAgICAgICAgICAgIC AgICAgICAgICAgICAgICAgICAgICAgICAgICAgICAgICAgICAgICAgICAgICAgICAgICAgICAgICAgIC AgICAgICAgICAgICAgICAgICAgICANCiAgICAgICAg ICAgICAgICAgICAgICAgICAgICAgICAgICAgICAgICAgICAgICAgICAgICAgICAgICAgICAgICAgICAg ICAgICAgICAgICAgICAgICAgICAgICAgICAgICAgICANCiAgICAgICAgICAgICAgICAgICAgICAgICAg ICAgICAgICAgICAgICAgICAgICAgICAgICAgICAgIC AgICAgICAgICAgICAgICAgICAgICAgICAgICAgICAgICAgICAgICAgICANCiAgICAgICAgICAgICAgIC AgICAgICAgICAgICAgICAgICAgICAgICAgICAgICAgICAgICAgICAgICAgICAgICAgICAgICAgICAgIC AgICAgICAgICAgICAgICAgICAgICAgICANCiAgICAg ICAgICAgICAgICAgICAgICAgICAgICAgICAgICAgICAgICAgICAgICAgICAgICAgICAgICAgICAgICAg ICAgICAgICAgICAgICAgICAgICAgICAgICAgICAgICAgICANCiAgICAgICAgICAgICAgICAgICAgICAg ICAgICAgICAgICAgICAgICAgICAgICAgICAgICAgIC AgICAgICAgICAgICAgICAgICAgICAgICAgICAgICAgICAgICAgICAgICAgICANCjw/rDOqG6qvrYNzeu D6S0crIj5TZw2WWC7pq6MzOXQiISxennXjNttUKyFjZGWeOvyNIag6DOymGP2YuUUnH3TqC7GnFDmgHG 2DLTQxVNIvkDQxCCKxGOSeIgH3EZKnJVunCN4WzTHm PNkrGYQeACWfFiNyIJOsGBGlDVUfEH0NUIHnB045jaCcUk9RSc4QWxSrCN7mda3CDmSrFNFtXvnLVhl6 ZDylHS0GzBCkvJDyFfHsKPHPNqKmB2krn9WdMcooBJNLQVfbOE7Ig9KyzTVmILb+Wg6RDJ4ok5AuLIwi FcCmWH1vpg3CIIeKKqRyN8PulQkkLHgaWMBdcBCMWT ZhbnV5RVguZZ9uhYNgJZ8ODXV5BEJeBaVgXnJmTAFgWZnjPEJCGJmGFiUkN4Vhn1AzGeE6AXAfKvOsBI pmSAUtQaB4NN78nIrePQ4XUFQjWBAoME59QUD3KUOeXb6YOf1UHtDwUZ1cvx7BXegyIWYuTqjILwe5RG rvKU6HbQEsL3VqdZCxt6nLPiYyC5OECNP0VXFwXo7V WZNgHfOuPICiRQbrSN8nOXBgPREErDxuupZ2YW8BYX9wxhOkYV1SPmUrZo1hKt4RXfElJ8XvL1TrCSUc YXGTXChxTL2VSDheJO9jKB7Vu4HBdWApfU1zwx0QXONwKHBcYkizty5BDcezD8A3zLyoUUCwIfMrDMVH TVmuXT2MEIWaLXN2BTVqNVWpGCLPCdQzR63uWF3RV9 Ynw55wQyH7XQUrUjWlQDgdMY90xLfgguKncSZetPtrQX7TAp7+DQplbmRvYmoNCnhyZWYNCjAgMjkNCj CuONIyUAVuNXKcIqS5NoSeNl6NUQQlNASyNWXiQcDrYYTxJAItEQiwCKBjCSV2YMX7COLnTCOxUT6LBk DuWYNbTzWoTZtgSPPvJGJobi0UZADmNHJoZCX9ClTd IMQuATDiULauKBJbKDMuQIkzEMZcYOWyWT6HBuScFAMnCBZ2YXXlNRXuWOUihs8NEUTjUKEsMUS3VWLh LUAmUCWrLFpuSBHdKUA3SEU4EAAwJUFeCD2FDsPoLXFeEIrpRAAmIBEtIECpnh2ZLONmVBJtJTP5ZfDj JRQrZDDrAEckRKVtBAO7BrF4OPCoTTQvOQ8ENhHpFM LxEOo5BGEiASRfJMWhir6UBDTgNACeTMF6PhFpQRUxEUWoUGfgFDYrISShIKV9LANpBFSmDD2BVoDhGX AbDSI7JJrmMTAwPOKzrd9ZNCTzKOFbPKzjHUNpPPDmPOCrVNhtUMNxWCSjIeGjFIMrKEWrJO7FDnIpUK HkSjD3BmbqHHKbPYCfnx9LNAKfLSRnRss0TyXtSDQx ZQGbNIhpPCSvHBQvDUg8RYCiPCJrMH9OHxXqUVArSnPaNiJkCVYtUXDbss0ABJNuQSEvSKP9CeUvHXIc TCAyJCdaIHYuPSO3DaT3QELuCMScXO3XCwRiAKVcOxS8BOLnDYNxPPXtrh6CLHYhYMLpIAj3WSEpNZQf DAOeHGsoGPZaVVM8NZJ5FLHgVHPlRT8TFvIoOUOfIj R4BVRmWMAqRTRzmu2NZSFqJRLxOcLzBPQzSHXtZXMzRBf7zhRnyHNeCIc1NW6VB8XqdbWmOnsKNg3Ld3 02IPP8KKUaLe6YB3ibPl2dFGXnXEPFWj3QSGp6HfZmKTXnN4W3XCJ4ROS4JWIhPjr9HSQbBZCfVLG8YT c+BEoaMDN1QcPuVxC7AmD5Wfs2LQMrDuG0BER9IJKw Vcs1Fa0dLVWAOf6+NJovmQDoiTmrPSGWUpW5HDZsPFcaEBPQPs8R ID Date Data Source [id number] 11/30/2020 05:42:47 AM EDT [facility] Name Value Range Interpretation Code Description Data Ellen rce(s) Supporting Document(s) History and Physical [facility] BHNFZf9uAyHQRfKy05/DRVsfFBNvf6MvATazYZs5BCcgRCQqF7ZaWQV1aP4lBYC9JGbYPqTwDmYwJIV6 lbm [file] Saúl/YY1WBxPEsyJp+IL55k7ko9nDIG1HQajCWdINVHfvCXl4VUjIgwoH2NWxqCcwq9iblrd7sPzHY+zm8 [file] ICAgICAgICAgICAgICAgICAgICAgICAgICAgICAgICAgICAgICAgICAgICAgICAgICAgICAgICAgICAg ICAgICAgICAgICAgICAgICAgICAgICAgICAgICAgICAgICAgICAgDQogICAgICAgICAgICAgICAgICAg ICAgICAgICAgICAgICAgICAgICAgICAgICAgICAgIC AgICAgICAgICAgICAgICAgICAgICAgICAgICAgICAgICAgICAgICAgICAgICAgICAgDQogICAgICAgIC AgICAgICAgICAgICAgICAgICAgICAgICAgICAgICAgICAgICAgICAgICAgICAgICAgICAgICAgICAgIC AgICAgICAgICAgICAgICAgICAgICAgICAgICAgICAg DQogICAgICAgICAgICAgICAgICAgICAgICAgICAgICAgICAgICAgICAgICAgICAgICAgICAgICAgICAg ICAgICAgICAgICAgICAgICAgICAgICAgICAgICAgICAgICAgICAgICAgDQogICAgICAgICAgICAgICAg ICAgICAgICAgICAgICAgICAgICAgICAgICAgICAgIC AgICAgICAgICAgICAgICAgICAgICAgICAgICAgICAgICAgICAgICAgICAgICAgICAgICAgDQogICAgIC AgICAgICAgICAgICAgICAgICAgICAgICAgICAgICAgICAgICAgICAgICAgICAgICAgICAgICAgICAgIC AgICAgICAgICAgICAgICAgICAgICAgICAgICAgICAg ICAgDQogICAgICAgICAgICAgICAgICAgICAgICAgICAgICAgICAgICAgICAgICAgICAgICAgICAgICAg ICAgICAgICAgICAgICAgICAgICAgICAgICAgICAgICAgICAgICAgICAgICAgDQogICAgICAgICAgICAg ICAgICAgICAgICAgICAgICAgICAgICAgICAgICAgIC AgICAgICAgICAgICAgICAgICAgICAgICAgICAgICAgICAgICAgICAgICAgICAgICAgICAgICAgDQogIC AgICAgICAgICAgICAgICAgICAgICAgICAgICAgICAgICAgICAgICAgICAgICAgICAgICAgICAgICAgIC AgICAgICAgICAgICAgICAgICAgICAgICAgICAgICAg ICAgICAgDQogICAgICAgICAgICAgICAgICAgICAgICAgICAgICAgICAgICAgICAgICAgICAgICAgICAg SYBaPFMqBEXkJCUlAUYuZDRnNKDaIWUjYJMzIJSnYSMiTXKpFTMhGIFcIGXoWEYmOAq6G6ttFBExVPZf DT1tOJp6Rc7+LMjVRpSaZYK0qtYbwA2ATI9kw0AiMD edUQPky1XrYLs5WG5HYBVgHXciOV1FTDnbua2QIVOcHOXryRURt0wcCpMkZFA4ZWKrBkprNU3XEJCfP1 muwvOvXEBuHIMAJRjhNOVWFGxhMCSBMGFfBIFnBbZoQjXbNTKhRYHjNNJLZDQ9IUQlXmWuQFnjWF4Ui6 DddMA4JVt+Pu1FJL7ll1WeHOu5ODBbTR3wng9SWMfJ YtVfR4AcauK1XQLdMTUbOp9YSAFmKERjvYF9WJWcDKQHBuNmH3VgmE20XIQKSh7+DQplbmRvYmoNCjQx GIQig4MiTLh1VO8NGVIzYKi2bQGgMQFZLVE0MIJgBQxdh1LhTIAhxJOsEH8KBuKqKTYaELUjGf6yIMJw VWX0DrA1SYVNBK7IDAPiYAYoaLXtUTKiWUDFWP6YIZ hfLFB9QABajhHkkRCtNHdnNO4EAGTrfaAsLPFqHSEPMSo+Ct9GVX9iz1TgYTm7VqRzVZ4kjy3KVKoFXf UoN6M9aLWiK9N0DQmfAc0KLUMrSUVoEqdzFKDJEQylFU2ZIW0gddR8MO7EoDAkLYEuEHTvlZCyJVu8E9 8vbSTeUFcgMN8ECYM+Claudia+Tn7JSZAyGLLxADKyXkNj NLQDCzFhQ9IoS8RWm5FjU1ZiEN04pPjkkxCdVElcZK1NYF4oMAQkMXRILP2ZkKPbyD5slzT6EFMdBCIG FoQwP12eyIHjDRAxZTG5TBWvMd3BHVHdF4KbfxIimLrlxtYjKREyCZTUMJ7EKSifvjMerOBykEafEC88 oCrtJY5VDt5LYkBrSO2jbu7KpRXwZa0GBXD0Zk2YVG JoJBGwEAVkLSZ4KNBvYfGiCComGVFiLSRtOZH1HCRpUHMbAK5HDpArVFFjOJV7BOJsFMBnKAZelg7XLB CuUKT4VfTwIVFuJLLyWTByJTlrRNZrBBUqLHQ1HVBhCLQfOU7HFhBfQTHtSGAzPvNhVYRqDZBhgi6DCE FgKAXoPGLyQQYpGGElKGPoSLxoQKGoFAP0YJIhBKNp FFArOL4QWaXdSZCqQLp4ZuJkHPAaJFVtbg5ZIPAxDJNqCOn5UKIhNCTqVXRmYQqdEGMmYPTlCKT9LZIn HONqIE7VJrMdZKMnVHNjMSRiIAGaKODyjo7FMNGqDSPjGRY9SfYoQQCqWUWrBAzkYVIwWMG4EPVqAZNv IRSgOB5PJmAjSPQxISbkIcKwEVBaECNifh8SPDQxRZ MoZmCdWOTwLZCfYUCgUKywFJKbGLGnMVT4IPKcYLSvMI3CJqQvYOEyTuV9IgBgEVKyYOZloy2COPCzUJ XaSVM7YoViUDYbSIXaFByhOVNiPDQ8FmS8ORAdTGDkUX2ULdJiDYWzDvV1MdOhJVVvRQKrks1MTFVwYI UbUiRoGoAsMWKuPNQfTNqdOIRtZGE1ZAA2XLQpKZYu UE1DErKvHMLfOjxgCfbvSLEvPAEurn5PEVDxIMPkBWX2FjQpWJBhEZFeVApvNIXcVQT7IiE0KFJeYWUg VA1CMoLyGMZeEfc1TLSfYOYaXLLcja2ODOPlLWPjYRT9UvSsZQJpERAtJPynOXNhPBFfIdX8REGxPEOs OV1KXfFcXTXvTqP0FYwoTFOjWMLxlt3IFVQbCJSoMR A8DFNrCACrWMNoXEfeECRjMHMyYYafPJWyORWbKX2DQxWzUHObOVJ7ZMfqUWNmYZWgir5TVTGuIJL1El AsApRjDARzUDAlGIpyZHNuHSPtDiQ4EEGwQRXwJA5OWqWxVKHpVDH9UHLvONFrMNVbae4QFRQqLXW7EL J4GwMwIYPiVTSaVGgrLUGfIVE0HTR7WBDsEUMkCS4X KqSmPBJkEWD4NcWwFVGeKAOjvq8YLXDhAXI3IPQ6DQNsXWOoIKBaOJvbTNYkSZC4NbG8IIZzUYFuIM4J IzFkLGOwXVU7VtFpMXRlDULvyo5OXECpSPD9Aeq6AORaZBYyIZMlGMo6ynOucNOzWSg3AD0XY7DncaKc HEGCIn2Rs909ZTYcTILkKi7XY7ahMv4lHSHjUNAOTs 4GDRh2GMbmYZFyXfl4UOG7HBkuTDG7QNBeNaS3IKJcSWVgJHY+TVs7TQL1HPXaMEw7QkPbY9HrCIB7Ut S9XIthN1AkObGsHd8kWCWQRd3+POxslWCnyZchWKYECsR2YNSnQYesBEDZXr4A ID Date Data Source [id number] 12/01/2020 10:36:00 AM [facility] Surgical Pathology ReportName: CONRAD BYRNEMRN: [id number] Number: [id number] Date: 11/30/2020 00:00Received Date: 11/30/2020 14:55Physician(s): TASHIA PHOENIX MD PINTER,JAYANT Gaviria,MDCopy To: TASHIA PHOENIX,ROSHNI,CHICHI,ROSIESpecimen(s) ReceivedA: Peritoneal implant biopsyClinical HistoryIR guided biopsy for peritoneal carcinomatosisDiagnosisPERITONEAL IMPLANT, NEEDLE BIOPSY: METASTATIC A DENOCARCINOMA. (SEE NOTE).NoteIn the setting of 5.5 cm mass in the pancreas, these findings arecompatible with metastatic ductal carcinoma of the pancreas.Osmar Paulson M.D.;Resident PathologistElectronically Signed By Luther Bhat M.D., Attending Likijbmievz88/5/2021 10:36:25 The attending pathologist named above attests that he/she has personallyreviewed the relevant preparation(s) for the specimen, performedmicroscopic examination when indicated, and rendered the final diagnosis.Unless 'gross-only' is specified, the final diagnosis is based on amicroscopic examination of transportation services representative s ections of tissue.Gross DescriptionThe specimen is received in formalin and labeled with the patient's name,"Sherrie Byrne" and "peritoneal implant biopsy". It consists of multiplesoft eaton tissue cores ranging from 0.3 to 1.7 cm in length and averaging0.1 cm in diameter. Totally submitted in two cassettes designated A1-A2.KALSKAG\\This report may include one or more immunohistochemical stain results thatuse analyte specific reagents. All positive and negative controls havebeen reviewed by the attending pathologist and are satisfactory. The testswere developed and their performance characteristics determined by [facility] Pathology department. They have not been cleared or approved by the USFood and Drug Administration. The FDA has determined that such clearanceor approval is not necessary. Name Value Range Interpretation Code Description Data Ellen rce(s) Supporting Document(s) ID Date Data Source [id number] 11/29/2020 08:50:04 PM EDT [facility] CT ABDOMEN PELVIS WITH CONTRAST [id number] FRANCO RESULT - FINALInterpreted by:Yaritza Lima BeginsSigned on [place] Nov 29, 2020 8:49 PM by Royce [...] COMPARISON: MR ABDOMEN WITH AND WITHOUT CONTRAST [id number] 11/27/2020 5:47 PM FINDINGS: Lungs: Minimal scattered [...] rce(s) Supporting Document(s) ID Date Data Source [id number] 11/29/2020 03:41:00 PM EDT [facility] Name Value Range Interpretation Code Description Data Ellen rce(s) Supporting Document(s) SARS-CoV-2 RNA 2019 nCoV Real-Time RT-PCR: NOT DETECTED [facility] This lab was ordered by [facility] and reported by [facility]. 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 [facility] Patient has symptoms related to [facility] When did you start to experience these symptoms [Date and time] [Phen X] [facility] Patient was hospitalized because of this condition [facility] patient was admitted to ICU for [facility] Patient resides in a congregate care setting [facility] status [facility] ID Date Data Source [id number] 11/29/2020 05:31:11 PM EDT [facility] Service Cmnt XXX-Imp : NoneRespiratory P CR Panel : PCR ResultsMicroorganism XXX Cult : See Labs Tab for 2019 nCoV RT-PCR resultsHAdV DNA QI LARRY+non-probe : Not DetectedHCoV [id number] Nph QI LARRY+non-probe : Not DetectedHCoV [id number] Nph QI LARRY+non-probe : Not [id number] RNA Nph QI LARRY+non-probe : Not [id number] RNA Upper resp QI LARRY+probe : Not [...] DNA Nph Q LARRY+non-probe : Not DetectedB [id number] DNA Nph LARRY+non-probe : Not Detected Name Value Range Interpretation Code Description Data Ellen rce(s) Supporting Document(s) ID Date Data Source [id number] 11/29/2020 03:45:39 PM T [facility] Name Value Range Interpretation Code Description Data Ellen rce(s) Supporting Document(s) pH of Venous blood 7.40 7.36-7.41 [facility] Carbon dioxide [Partial pressure] in Venous blood 50 mmHg 40-45 H [facility] Oxygen [Partial pressure] in Venous blood 30 mmHg [facility] Base excess standard in Venous blood by calculation 5 mmol/L [facility] Oxygen saturation Calculated from oxygen partial pressure in Venous blood 56 % 60-85 L [facility] Lactate [Moles/volume] in Venous blood 0.6 mmol/L 0.5-2.2 [facility] Bicarbonate [Moles/volume] in Venous blood 32 mmol/L [facility] ID Date Data Source [id number] 11/29/2020 03:16:45 PM EDT [facility] Name Value Range Interpretation Code Description Data Ellen rce(s) Supporting Document(s) Leukocytes [#/volume] in Blood by Automated count 7.7 10*3/uL 4-10 [facility] Erythrocytes [#/volume] in Blood by Automated count 5.05 10*6/uL 4.6- 6.1 [facility] Hemoglobin [Mass/volume] in Blood 15.0 g/dL 13.5-18 [facility] Hematocrit [Volume Fraction] of Blood by Automated count 45.1 % 4 1-53 [facility] Erythrocyte mean corpuscular volume [Entitic volume] by Auto mated count 89.3 fL 80-96 [facility] Erythrocyte mean corpuscular hemoglobin [Entitic mass] by Automated count 29.8 pg 27-33 [facility] Erythrocyte mean corpuscular hemoglobin concentration [Mass/volume] by Automated count 33.3 g/dL 32.0-36.0 [facility] distribution width [Ratio] by Automated count 13.3 % 11.5-14.5 [facility] Platelets [#/volume] in Blood by Automated count 314 10*3/uL 150-400 [facility] Differential cell count method - Blood [facility] Neutrophils/100 leukocytes in Blood by Automated count 78 % [facility] Lymphocytes/100 leukocytes in Blood by Automated count 12 % [facility] Monocytes/100 leukocytes in Blood by Automated count 9 % [facility] Eosinophils/100 leukocytes in Blood by Automated count 1 % [facility] Basophils/100 leukocytes in Blood by Automated count 0 % [facility] Neutrophils [#/volume] in Blood by Automated count 6.09 10*3/uL 1.8-7 .0 [facility] Lymphocytes [#/volume] in Blood by Automated count 0.90 10*3/uL 1.2-4 .0 L [facility] Monocytes [#/volume] in Blood by Automated count 0.66 10*3/uL 0-0.8 [facility] Eosinophils [#/volume] in Blood by Automated count 0.07 10*3/uL 0-0.5 [facility] Basophils [#/volume] in Blood by Automated count 0.02 10*3/uL 0-0.2 [facility] Nucleated erythrocytes/100 leukocytes [Ratio] in Blood by Automated count 0 /100{WBCs} 0-0 [facility] ID Date Data Source [id number] 11/29/2020 03:35:27 PM EDT [facility] Name Value Range Interpretation Code Description Data Ellen rce(s) Supporting Document(s) Lipase [Enzymatic activity/volume] in Serum or Plasma 37 U/L 13-6 0 [facility] ID Date Data Source [id number] 11/29/2020 03:35:27 PM [facility] Name Value Range Interpretation Code Description Data Ellen rce(s) Supporting Document(s) Albumin [Mass/volume] in Serum or Plasma by Bromocresol green (BCG) dye binding method 4.8 g/dL 3.5-5.2 [facility] Bilirubin.total [Mass/volume] in Serum or Plasma 2.1 mg/dL <1.2 H [facility] Bilirubin.direct [Mass/volume] in Serum or Plasma 0.3 mg/dL <0.3 H [facility] Alkaline phosphatase [Enzymatic activity/volume] in Serum or Plasma 80 U/L 40-129 [facility] Aspartate aminotransferase [Enzymatic activity/volume] in Serum or Plasma 10 U/L <40 [facility] Alanine aminotransferase [Enzymatic activity/volume] in Seru m or Plasma 8 U/L <41 [facility] Protein [Mass/volume] in Serum or Plasma 6.8 g/dL 6.4-8.3 [facility] ID Date Data Source [id number] 11/29/2020 03:54:58 PM [facility] Name Value Range Interpretation Code Description Data Ellen rce(s) Supporting Document(s) Bicarbonate [Moles/volume] in Serum 24 mmol/L 22-29 [facility] Chloride [Moles/volume] in Serum or Plasma 99 mmol/L 98-107 [facility] Creatinine [Mass/volume] in Serum or Plasma 0.92 mg/dL 0.70-1.20 [facility] Glucose [Mass/volume] in Serum or Plasma 96 mg/dL 70-140 [facility] Potassium [Moles/volume] in Serum or Plasma 4.0 mmol/L 3.4-5.1 [facility] Sodium [Moles/volume] in Serum or Plasma 139 mmol/L 136-145 [facility] Urea nitrogen [Mass/volume] in Serum or Plasma 13 mg/dL 6-20 [facility] Confirmed Anion gap 3 in Serum or Plasma 16 mmol/L 8-15 H [facility] Osmolality of Serum or Plasma by calculation 289 mosm/kg 275-300 [facility] Confirmed Creatinine/Urea nitrogen [Mass Ratio] in Serum or Plasma 14 [facility] Confirmed Calcium [Mass/volume] in Serum or Plasma 9.3 mg/dL 8.6-10.0 [facility] Glomerular filtration rate/1.73 sq M pre dicted among non-blacks [Volume Rate/Area] in Serum or Plasma by Creatinine-based formula (MDRD) >6 0 [facility] Glomerular filtration rate/1.73 sq M pre dicted among blacks [Volume Rate/Area] in Serum or Plasma by Creatinine-based formula (MDRD) >60 [facility] ID Date Data Source [id number] 11/29/2020 06:46:43 AM EDT [facility] Name Value Range Interpretation Code Description Data Ellen rce(s) Supporting Document(s) Consultation [facility] SZELQw8qCnRRYpTu80/CERjbBTZpv3JgZKwoNXn8KCpbZYQvT1YmXUT2rW9bTKB3WUoMLpGzXdOgHIOd lbm [file] ICAgICAgICAgICAgICAgICAgICAgICAgICAgICAgICAgICAgICAgICAgICAgICAgICAgICAgICAgICAg ICAgICANCiAgICAgICAgICAgICAgICAgICAgICAgIC AgICAgICAgICAgICAgICAgICAgICAgICAgICAgICAgICAgICAgICAgICAgICAgICAgICAgICAgICAgIC AgICAgICAgICAgICAgICANCiAgICAgICAgICAgICAgICAgICAgICAgICAgICAgICAgICAgICAgICAgIC AgICAgICAgICAgICAgICAgICAgICAgICAgICAgICAg ICAgICAgICAgICAgICAgICAgICAgICAgICANCiAgICAgICAgICAgICAgICAgICAgICAgICAgICAgICAg ICAgICAgICAgICAgICAgICAgICAgICAgICAgICAgICAgICAgICAgICAgICAgICAgICAgICAgICAgICAg ICAgICAgICANCiAgICAgICAgICAgICAgICAgICAgIC AgICAgICAgICAgICAgICAgICAgICAgICAgICAgICAgICAgICAgICAgICAgICAgICAgICAgICAgICAgIC AgICAgICAgICAgICAgICAgICANCiAgICAgICAgICAgICAgICAgICAgICAgICAgICAgICAgICAgICAgIC AgICAgICAgICAgICAgICAgICAgICAgICAgICAgICAg ICAgICAgICAgICAgICAgICAgICAgICAgICAgICANCiAgICAgICAgICAgICAgICAgICAgICAgICAgICAg ICAgICAgICAgICAgICAgICAgICAgICAgICAgICAgICAgICAgICAgICAgICAgICAgICAgICAgICAgICAg ICAgICAgICAgICANCiAgICAgICAgICAgICAgICAgIC AgICAgICAgICAgICAgICAgICAgICAgICAgICAgICAgICAgICAgICAgICAgICAgICAgICAgICAgICAgIC AgICAgICAgICAgICAgICAgICAgICANCiAgICAgICAgICAgICAgICAgICAgICAgICAgICAgICAgICAgIC AgICAgICAgICAgICAgICAgICAgICAgICAgICAgICAg ICAgICAgICAgICAgICAgICAgICAgICAgICAgICAgICANCiAgICAgICAgICAgICAgICAgICAgICAgICAg ICAgICAgICAgICAgICAgICAgICAgICAgICAgICAgICAgICAgICAgICAgICAgICAgICAgICAgICAgICAg ICAgICAgICAgICAgICANCjw/jJBeQ4lppYElmqU0H8 jmJm1BRv6IIB3be1DzEDPgOMsygdAmBtwAFyElCWMtFasSWhn1LOinZR8QsKLeO3LcK2HfSFotGI3WCD LkWNAmuXCgNMSzPKGpCqN4DSDuDTlhRY4XySRhDDxtFQAzKVPcUsHqKEOkWBLlMPZzMIJkBAHKZNTvCA VvCpAcYVfkAB4Qp8RfxVL8TGk+Rc8SAP0fx2RkTObj AaIyPS5hvq6GQBiIXqPuK9XwfcL1EIB8DRPjCh5VSLPhSIVqwAWhVOPhDNBUVcBpW3PzxT69LFUEGr9+ FGwtymIbVcyZUeK0GPQbl5OvFKe3HD0LNWAnSBo3rDHiT28it9XgyOYnUlefH4D4eV7wFb5jdtkeHKOj FEWySETkZP8lDWEaUNOvZcM1LLXSID3XLVFpRWWsoX UlQPDuVWOFLW6DCNigJMN9BVIhpxAkxXHeKYeuIW6UZFNjquHwVpDvYDEEUZg+Aj9FJD7xe7MlBHcpUL NbFU8vwb6FTBpFRmZxZ3H9uWToF4F2SPyiUc1IQDPrCUXgXjOrKIDEJZqrDZ5HIA4qegZ7PY4WgDOyOY UyQOZfoSDbYKf2R33loLAoXQptIB5BJBB+Claudia+Pg0K ZGGeHSDuKFMjHsJuGOVSOvCjN9WdO0UAw8HjA1GmCS21yAqoatPpYBbcQM0VVF0eZQThPLYSYK0ZfDEx fK5musCbLlGaSMSSTlJuF25rrALzMJSbKNVxZUAcOe0XJWPzB6UwddRohAhpvsUlLYTyGPTEIV1LJPyk qcLblDRbnVrqKH46fScnXK9TOv3AOfCxLB1cdw8QdQ CaNf4GQVXfMq1WBSDmTGDoJBJeLVY2UITqXkUxALyfBTFnGUCdSME8BXIkKWRqSI2JMcNpXVVoIoM3LG XrAHQhLCAhpy4DCODmLMLfGsWlLTNrSXGtEBUzBTxkYMXoVLKeVHU0GNAzKAFvBH5RMdQkEEOxJTTjQD lsSTMyLPPyad1SLOWfKNLaQqUyBJBlDQWnSEOoWVjk TGHiQFB1ROvuDULgJLIsHR0NOsMdKZSvMJtrELPsSDCsJBQtyi7QQDQcFXXgXMI2XPXdKSZlUMZuONsb EFXxNPI9BEk8JNDiRSIxQT9DUbTuYRRvDDY5QBPeQJRbMNDtpy9MYYTrRXJlFAk9BvHvNMRxEDBuRMzs XTAkFVT4GwEnOOHsGCPcJT1JTqPeSKGwVGR7IUynXH HsHIMwne3CCWRvAJUrUnnqAeEyNVXcOLTnOBgsNELbBDP0SDN0OUEvTLZbPY7IRzVuTMFxYXtmCQvgHW VwHWXcno6VNPIdVUYpIIP9HqYgLGXqSLUhZRacFBWzHNA3WyM2BZMwHFRbIJ1IEcZvLMCdQHq0LuUhAL FgBMBdzy6UCNYkASXaBLshNSBnPEPmYUJzUMkmILTr BIIgVgB9EGJzJJJbTL9KSoYjQRLoMmY3PSlxISYvMYHuks9NCCYiUEGvAMF0YsOzADRkWTDrDDkeGXYt ZCDwWEAiKCGwKBUoHS3DCyQgFTNdCrO8ZdvnOZTuULPdun6JURQkANYpIwt7XRJdRFHrKNZlQNvlTLZa VFAqVIVnQVXzKACdGN1SQtNgDZRbJiJrFNXpAEOdFQ Skqz9AFYOfYEWzYLE5IZNcHGUmKFKlKMniKECcUMS4SJIhHWLyIPMyIK0STsCsZMSmCwW0WLXwMSVwOT Lvgy8BBHVsKBNwRhN5BRArUXQfFGGgKAeiQGHbLLJ4VIQcAKWjVERuJP9WDnCtCPRdZpA3KsbpMREwHF Uali1JcHHnoOyuwr5LWZjFCk7OnNzaJIR4JUzcDp1a gYEmXDKrBZLCPf2FbiPdBBMjMJGBDKwxLBItMVCrOYo6Grd7IjM1WZImJpJ5TzV4HiC1DBw4PSR2Qlhe TyO1WNE1QvciBdt9Mua5GMXeZGNtIOziNlX4ChvcNzVwZYR+AE7bXAf+Vu0Fo9YcssB1tyWbZGcbCzci Av9JOCYVY9VIXx== ID Date Data Source [id number] 11/28/2020 10:55:45 AM EDT [facility] Name Value Range Interpretation Code Description Data Ellen rce(s) Supporting Document(s) Progress Note [facility] KMLQBt3eVySMXnYc75/RIAhuHWGxe2XvNPepDVo8TKddRLVuY1ObMXH3cF4gRQP8LJdWYxKiJcEaBJWx lbm [file] T0YNCg== ID Date Data Source [id number] 11/27/2020 08:15:02 PM EDT [facility] MR ABDOMEN WITH AND WITHOUT CONTRAST 741 [...] (IV); COMPARISON: CT ABDOMEN PELVIS WITH CONTRAST [id number] 11/26/2020 8:23 PM FINDINGS: Liver: No mass. [...] MDThis document has been electronically signed by Tsesy Garcia MD on 11/27/2020 8:14 PM Name Value Range Interpretation Code Description Data Ellen rce(s) Supporting Document(s) ID Date Data Source [id number] 11/27/2020 12:07:56 PM [facility] Name Value Range Interpretation Code Description Data Ellen rce(s) Supporting Document(s) [facility] RUOPZc7mOrKMLzJt28/FAUgbBRQtu2WkNExcWRa2GYueKEMiA0EcBGY8dH8oMDF1QKxCBwZgLgUlKVOy lbm [file] wm+ASSEMBLER FAUCETS+Z8CaVRj6INE1tCq29AIeAKwr/O/K1W01GpL0pp+5+Lbi0svW4+KAy5plubZ5ptRQi5nQd//e++ [file] LiSWF4Hxy9VYAcSUQ7MPT9JD3cJRXGBq7+OHfdtPAdtQmfYZRMCzVkIKW3PBjjRMEFFw4X ID Date Data Source [id number] 11/27/2020 02:36:39 AM EDT [facility] Name Value Range Interpretation Code Description Data Ellen rce(s) Supporting Document(s) History and Physical [facility] BGLYKj7iUrSABhAd07/DXXfsPEMrp0ZqAKrlQKl0VYppLUGsT9OxVXG9zW4mICD4VRgOCtShCmEfUOJf lbm [file] AgICAgICAgICAgICAgICAgICAgICAgICAgICAgICAg SLNbCZJwGUNlSIMcKEXgFDMeRNRdINYwSAKhVCUdMIMuXLGaZDXiHSBtIBQkLLHePVIrPSQvIT3RVMMt ICAgICAgICAgICAgICAgICAgICAgICAgICAgICAgICAgICAgICAgICAgICAgICAgICAgICAgICAgICAg ICAgICAgICAgICAgICAgICAgICAgICAgICAgICAgIC ZoXHQuAH9PIYUtVVYdPSMyLMVuVONdNMDlUZBmOFQxJBXvEQGuYVUnTMHfIELlMEXkFCWuVMCmPVNjTJ LlIXUyBPIwZGBtIFIbXWLmCDYiIPSqGEZmFUNtQWRlHVRcWGQtRGHzWYTqVHLlPN2NPHLlYXMwVZDqRO AgICAgICAgICAgICAgICAgICAgICAgICAgICAgICAg UDLuIBJyNQHiMXKfNSJmTPLqMMNdAAJsYBPeHOAdERLtWBQrZBGoEQYcCTPxONBbLPHcFDEdRKKmJD9Q ICAgICAgICAgICAgICAgICAgICAgICAgICAgICAgICAgICAgICAgICAgICAgICAgICAgICAgICAgICAg ICAgICAgICAgICAgICAgICAgICAgICAgICAgICAgIC YzLMScIMKaGX2BWIDvBUWeXYNxZYRxNXSzDXQxPRTrIZUeTGUaIJPzRDFaAJYkZMSmHLKrIRVwHUYkKT FgPIYuVUIyVJPnDBTkZOFpSKEiNOFfJVSkXMQaFWMpOEPoXYXmKYKzZJRwISRpBPFrPR1HAUGtQKUnDA AgICAgICAgICAgICAgICAgICAgICAgICAgICAgICAg ICAgICAgICAgICAgICAgICAgICAgICAgICAgICAgICAgICAgICAgICAgICAgICAgICAgICAgICAgICAg OA6ZOSWgESJwTIRuAFClKFYkWVPcWZKmZPXcAJPtRZLuBOFvGUIaGIOdERUlUMKgIGXbGFMmAITtQOMr ICAgICAgICAgICAgICAgICAgICAgICAgICAgICAgIC AaMZKxINUfZGAqUT9WGOGrXBNeGQDxOOFlJEZiHKCkOBBrZMZeXCKfHPKiLLYiFCZjDXJhAVInJYBjGY ZbWPBpMADhNXLwSCIdKKDwPNYwGNIyGNEvOMHsVMCuJUVzTGDcPGQcTVTkDGKqKSCgVSWkTS3FWJ84aH Cmz7N1XRFoHO0qzxz/Sr2KRBgmgxSpgNBgDH1WBeQy GP2wya4UWrEgUW5hed4XUFxNHiIzL5G4bQMiBGSbVXUJRxBvT30dHBxuAl12TMwvDCBzLpLoOLg0Xs1Y LdIzK6iaPSVdLwP6CLEcVaR7ZLBrBbK7XUElHmQfWCGuOWRpVIAfNKQYFPH1DCFmKkBuMcLvVUVjJS7D XXGgX174iwNzHe7GAo1FMbRnJL4kgn6UDzqrIKZvQx mLDiq2MHhyRM3ZuVPsmGIrLYGcAGRMApLvT5ria2ViKkufFKWEFVibIF5Li2GpuJTnDTu+Cj3BIN9wd7 QeEOtcYZMcQK8yco2UHXkRLkSsJ4VchCqjBXehEAFlpCGVVAX8IK9cUeBYdC6naILbBKHMUfKFUGC4JH bpIwXhHnMoSEObHJr1EHRJOSmTJlSjI1Ong7JvSlZ7 DFIvVvXwYPjnPBJbTdI9PP50pRafYU4OSSGbIUOrJL50OOP8GQSwIk3IRn2XTfWhUG7ydn6BTanxVBNu KldKLyt4FWovGU6NvIDzS9IzsFPyj0mOCvTiL1UNNLV5PNXfTi8ATTHqTeYuFBRbHZdgWC5zTVGhMNBD zYgtxeM2GX0KAP6aaxZhJR5OSmBrZk0bGw5FYbSzL7 AnW7SkDMIhXEXNANjtJB8PBFpeMF6bUM3Im1USvNHstJ2kqi8DSCLnWFXiFffato7QXogcV4S1jEihPA OvMbbbWCRHVPxjOY8FWAHzYXJ3OOAiLvKfJQUULnAtU27qNB9BH6Aja04vNzZ6NWWjOhUiQFffAQ66oA srsdKdvLEitMntLY7JOy4+DQplbmRvYmoNCnhyZWYN SwIjNQPUYyUbGAStVQKyGBYvChA7FePkQd4PVFSaGSCdBNXaPuOlVWZbPSFxWRtcVSQpCIT4KzR2WCSe FAIdKH4HFdKxGNIcUXZoOrPjKIIsKCHyfb8JZRWrTLNjZFZ9IsDjPKSaHPBhTYtdKJGmYUI5HGO9BGXp RFAgXD5BXnFuCLYqQKJ7POorUKDcFLCkiz2FNTEuSG VsGZm8KYVgRCGrKVAxBObeMUAiWNL9KLSwEGShQLBqMC6WPvFlJVJqTYCeMLEwFQHrSTWxbe0DHNVdKT IjLbDjDQZlPMJuBTPoPVnrYSWyYNG5DJT3SLTbWSBuZE3XNpYtCQDiKMRmVACkQZIlKFLnab2QWZKbDI IdDRz9HaJbPPNcMJAwDCahEEZyNPX4PXG6THQoFIKf MI0DPuCqVHMvKeL2IDAqINKnVFKbzj6SAUMtHULhGKBpLNLyTSYqLWKyKMqvPYBpSCA4LfJxTPItVIBm JQ6AThUiOHXsPlZ6PXevJTTyFELexp5KOFTtZEEfDva0BfLtYRJwDIEhCWnzXQWoZVN7BQz7KFAmYNSk NP8BNeYmQGSxUkocRJrcKSHqIMYqln1BZOHyKAUbTQ BeMiEzBUNfWLHzCGjyPPFbOIY7EFL3LEYwALKbLW7QHdDpSMXvQkw1PVSgFCYnQFZafd2KNXJsZVOqOF M4NuGcKJYgZUPoFOekWFYiQJOgGyZwZFXvZWMrXG7URzOoAIJjSlQ2ZTGgQBWhPDDxtk9ALAWyHOVgSK jyJETcDPLbLVIjBDtoRIPvNMNnJTZ4POZkFPOpKR5U WcMkSEKaSgOjETSxLIUwHBQded9BKVWmEIG3JlQ4HJReTLLyOSZaJIsaPMFtDSCcRDl2DIVvJRZpKQ7S FcJeZLWiXAEoROrfHYAcHAIysu8KOVRuLAG8IHV6LqHgDYZqKLRlBKyzPAKeFWT3WNjyAWAjEPDdCT5K MkBoBQLyZXFaOvQqPYTsDKXdpt4CTMOgPIK4NbYhVl AjEYNoGUFiQFgwZSDxCWI4FFo1YHBeWTMaRG7AYyYaYBAyBZB0QAFuDOExTYOpik4SqSJowToluf1WCX rXSx4WrKclQXIpCNzvDe9jbOLzPETsIZJYRz4EphAlRZEcYMGADBibWAMmNPU1CECxBCUkNbHnJ8KwWV BmX4F8ZoY4FVTvKkK0PVd7XoB2RMreJkJbPKMyNtPg YaJ5MjO7HPDwQdH5VgY9ErC9KeV+UA9yELp+Nf0Zq3RamyA0anSwFAu6Eds0MU7PXCESU6KHJo== ID Date Data Source [id number] 11/27/2020 01:35:49 AM EDT [facility] CT HEAD WITH AND WITHOUT CONTRAST [id number] INAL RESULTInterpreted by:Aashish Gonzalez, Terrell Meza MDINDICATION: [...] rce(s) Supporting Document(s) ID Date Data Source [id number] 11/26/2020 09:55:25 PM EDT [facility] CT THORAX WITH CONTRAST [id number] RESUL TInterpreted by:LUISITO KirkROCEDURE INFORMATION: Exam: CT [...] clinical indication); or iterative reconstruction. Contrast material: [id number]; Contrast volume: 100 ml; Contrast route: INTRAVENOUS [...] rce(s) Supporting Document(s) ID Date Data Source [id number] 11/26/2020 09:51:[address] [facility] [address] ABDOMEN PELVIS WITH CONTRAST [id number] AL RESULTInterpreted by:Mackenzie Arias, MDPROCEDURE INFORMATION: Exam: [...] clinical indication); or iterative reconstruction. Contrast material: [id number]; Contrast volume: 100 ml; Contrast route: INTRAVENOUS (IV); Other contrast: Oral, eqee294, 40; COMPARISON: CT ABD PELVIS W/ IV [...] rce(s) Supporting Document(s) ID Date Data Source [id number] 11/26/2020 07:07:00 PM EDT [facility] Name Value Range Interpretation Code Description Data Ellen rce(s) Supporting Document(s) SARS-CoV-2 RNA 2019 nCoV Real-Time RT-PCR: NOT DETECTED [facility] This lab was ordered by [facility] and reported by [facility]. 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 [facility] Patient has symptoms related to [facility] When did you start to experience these symptoms [Date and time] [Phen X] [facility] Patient was hospitalized because of this condition [facility] patient was admitted to ICU for [facility] Patient resides in a congregate care setting [facility] status [facility] ID Date Data Source [id number] 11/26/2020 10:18:15 PM EDT [facility] Service Cmnt XXX-Imp : NoneRespiratory P CR Panel : PCR ResultsMicroorganism XXX Cult : See Labs Tab for 2019 nCoV RT-PCR resultsHAdV DNA QI LARRY+non-probe : Not DetectedHCoV [id number] Nph QI LARRY+non-probe : Not DetectedHCoV [id number] Nph QI LARRY+non-probe : Not [id number] RNA Nph QI LARRY+non-probe : Not [id number] RNA Upper resp QI LARRY+probe : Not [...] DNA Nph Q LARRY+non-probe : Not DetectedB [id number] DNA Nph LARRY+non-probe : Not Detected Name Value Range Interpretation Code Description Data Ellen rce(s) Supporting Document(s) ID Date Data Source [id number] 11/26/2020 06:47:23 PM [facility] Name Value Range Interpretation Code Description Data Ellen rce(s) Supporting Document(s) Lactate [Moles/volume] in Serum or Plasma 0.6 mmol/l 0.5-2.2 [facility] ID Date Data Source [id number] 11/26/2020 05:45:00 PM [facility] Name Value Range Interpretation Code Description Data Ellen rce(s) Supporting Document(s) Leukocytes [#/volume] in Blood by Automated count 8.2 10*3/uL 4-10 [facility] Erythrocytes [#/volume] in Blood by Automated count 4.71 10*6/uL 4.6- 6.1 [facility] Hemoglobin [Mass/volume] in Blood 14.0 g/dL 13.5-18 [facility] Hematocrit [Volume Fraction] of Blood by Automated count 42.4 % 4 1-53 [facility] Erythrocyte mean corpuscular volume [Entitic volume] by Auto mated count 90.1 fL 80-96 [facility] Erythrocyte mean corpuscular hemoglobin [Entitic mass] by Automated count 29.8 pg 27-33 [facility] Erythrocyte mean corpuscular hemoglobin concentration [Mass/volume] by Automated count 33.1 g/dL 32.0-36.0 [facility] Erythrocyte distribution width [Ratio] by Automated count 13.3 % 11.5-14.5 [facility] Platelets [#/volume] in Blood by Automated count 266 10*3/uL 150-400 [facility] Differential cell count method - Blood [facility] Neutrophils/100 leukocytes in Blood by Automated count 76 % [facility] Lymphocytes/100 leukocytes in Blood by Automated count 16 % [facility] Monocytes/100 leukocytes in Blood by Automated count 5 % [facility] Eosinophils/100 leukocytes in Blood by Automated count 3 % [facility] Basophils/100 leukocytes in Blood by Automated count 0 % [facility] Neutrophils [#/volume] in Blood by Automated count 6.23 10*3/uL 1.8-7 .0 [facility] Lymphocytes [#/volume] in Blood by Automated count 1.28 10*3/uL 1.2-4 .0 [facility] Monocytes [#/volume] in Blood by Automated count 0.44 10*3/uL 0-0.8 [facility] Eosinophils [#/volume] in Blood by Automated count 0.26 10*3/uL 0-0.5 [facility] Basophils [#/volume] in Blood by Automated count 0.03 10*3/uL 0-0.2 [facility] Nucleated erythrocytes/100 leukocytes [Ratio] in Blood by Automated count 0 /100{WBCs} 0-0 [facility] ID Date Data Source [id number] 11/26/2020 06:18:12 PM EDT [facility] Name Value Range Interpretation Code Description Data Ellen rce(s) Supporting Document(s) Albumin [Mass/volume] in Serum or Plasma by Bromocresol green (BCG) dye binding method 4.7 g/dL 3.5-5.2 [facility] Bilirubin.total [Mass/volume] in Serum or Plasma 1.6 mg/dL <1.2 H [facility] Bilirubin.direct [Mass/volume] in Serum or Plasma 0.3 mg/dL <0.3 H [facility] Alkaline phosphatase [Enzymatic activity/volume] in Serum or Plasma 81 U/L 40-129 [facility] Aspartate aminotransferase [Enzymatic activity/volume] in Serum or Plasma 10 U/L <40 [facility] Alanine aminotransferase [Enzymatic activity/volume] in Seru m or Plasma 7 U/L <41 [facility] Protein [Mass/volume] in Serum or Plasma 7.0 g/dL 6.4-8.3 [facility] ID Date Data Source [id number] 11/26/2020 06:18:12 PM [facility] Name Value Range Interpretation Code Description Data Ellen rce(s) Supporting Document(s) Lipase [Enzymatic activity/volume] in Serum or Plasma 32 U/L 13-6 0 [facility] ID Date Data Source [id number] 11/26/2020 06:31:56 PM [facility] Name Value Range Interpretation Code Description Data Ellen rce(s) Supporting Document(s) Bicarbonate [Moles/volume] in Serum 26 mmol/L 22-29 [facility] Chloride [Moles/volume] in Serum or Plasma 98 mmol/L 98-107 [facility] Creatinine [Mass/volume] in Serum or Plasma 0.89 mg/dL 0.70-1.20 [facility] Glucose [Mass/volume] in Serum or Plasma 79 mg/dL 70-140 [facility] Confirmed Potassium [Moles/volume] in Serum or Plasma 4.0 mmol/L 3.4-5.1 [facility] Sodium [Moles/volume] in Serum or Plasma 136 mmol/L 136-145 [facility] Urea nitrogen [Mass/volume] in Serum or Plasma 7 mg/dL 6-20 [facility] Anion gap 3 in Serum or Plasma 12 mmol/L 8-15 [facility] Osmolality of Serum or Plasma by calculation 279 mosm/kg 275-300 [facility] Creatinine/Urea nitrogen [Mass Ratio] in Serum or Plasma 8 [facility] Calcium [Mass/volume] in Serum or Plasma 9.7 mg/dL 8.6-10.0 [facility] Glomerular filtration rate/1.73 sq M pre dicted among non-blacks [Volume Rate/Area] in Serum or Plasma by Creatinine-based formula (MDRD) >6 0 [facility] Glomerular filtration rate/1.73 sq M pre dicted among blacks [Volume Rate/Area] in Serum or Plasma by Creatinine-based formula (MDRD) >60 [facility] ID Date Data Source [id number] 11/26/2020 07:38:36 PM EDT [facility] Name Value Range Interpretation Code Description Data Ellen rce(s) Supporting Document(s) aPTT in Platelet poor plasma by Coagulation assay 33.2 s 24.0-33. 0 H [facility] ID Date Data Source [id number] 11/26/2020 07:38:36 PM EDT [facility] Name Value Range Interpretation Code Description Data Ellen rce(s) Supporting Document(s) Prothrombin time (PT) 13.9 s 11.6-14.0 [facility] INR in Platelet poor plasma by Coagulation assay 1.11 [facility] Routine intensity oral anticoagulation I NR is typically 2.0-3.0. Target INR must be clinically individualized. ID Date Data Source [id number] 11/24/2020 03:29:00 PM EDT [facility] [address] [place] [address] PHONE: [phone] FAX: [phone] Name .................. : ALECIA Gaviria Acct Number.................. : [id number] ROOM. ................. : [address] Number ................... : [id number] Stay type ............. : E/R Discharge Date......... ... : 11/24/20 Admit Date ......... : 11/23/20 Admit Phys .................... : LEXUS VÁSQUEZ Date of ....... : 1985 Family Phys ................... : NO PCP Phone .................. : [phone] Age ................................ : 35 Film# .................. .:[id number] Sex ................................. : M Unsigned transcriptions are preliminary reports and do not represent a medical or legal document CT ABD & PELVIS W/ IV ONLY [id number] COMPLETE:11/23/20 23:38 36147 Reason(s): epigastric pain, known pancreatic mass on [...] fat. Based on Page 1 of [address] [place] [address] PHONE: [phone] FAX: [phone] Name .................. : ALECIA Gaviria Acct Number.................. : [id number] ROOM. ................. : VT-20 MR Number ................... : [id number] Stay type ............. : E/R Discharge Date......... ... : 11/24/20 Admit Date ......... : 11/23/20 Admit Phys .................... : LEXUS THALIA Date of ....... : 1985 Family Phys ................... : NO PCP Phone .................. : [phone] Age ................................ : 35 Film# .................. .:[id number] Sex ................................. : M Unsigned transcriptions are preliminary reports and do not represent a medical or legal document CT ABD & PELVIS W/ IV ONLY [id number] COMPLETE:11/23/20 23:38 89050 Reason(s): epigastric pain, known pancreatic mass on CTon 11/14 in [facility] subsequently described findings this is most likely [...] distention or pneumatosis. Page 2 of 3 [facility] [address] [place] [address] PHONE: [phone] FAX: [phone] Name .................. : ALECIA Gaviria Acct Number.................. : [id number] ROOM. ................. : [facility] MR Number ................... : [id number] Stay type ............. : E/R Discharge Date......... ... : 11/24/20 Admit Date ......... : 11/23/20 Admit Phys .................... : LEXUS VÁSQUEZ Date of ....... : 1985 Family Phys ................... : NO PCP Phone .................. : [phone] Age ................................ : 35 Film# .................. .:[id number] Sex ................................. : M Unsigned transcriptions are preliminary reports and do not represent a medical or legal document CT ABD & PELVIS W/ IV ONLY [id number] COMPLETE:11/23/20 23:38 01246 Reason(s): epigastric pain, known pancreatic mass on [...] Dictation Date: Copy for: EMERGENCY DEPT via [email or web address] Copy for: 710 MED REC DISCHARGED Page 3 of 3 Name Value Range Interpretation Code Description Data Ellen rce(s) Supporting Document(s) ID Date Data Source [id number] 11/23/2020 10:52:00 PM EDT [facility] 1 OrderSheet [facility] Emergency Department [address] [place] [address] Phone #: ext- [phone] 11/23/2020 22:44 Patient: SHERRIE BYRNE Sex: M : 1985 Age: 35yWEIGHT:83.9 kg (S) HEIGHT:71 inches (S) BMI:25.8ALLERGIES: Sulfa AntibioticsCHIEF COMPLAINT: abdominal painDIAGNOSIS: Intestinal obstruction, Biliary calculusLAB ORDERSOrder Description Priority Entered Acknowledged InitialedCBC w Diff STAT 23:36 11/23/2020 00:10 11/24/2020 Nicolasa Alberts M.D.; R.N.CMP STAT 23:36 11/23/2020 00:10 [...] Only Nicolasa Alberts(Oxygen?(No)) Nancy; R.NYoshi(IV?(Yes)) 2 OrderSheet [facility] Emergency Department [address] [place] [address] Phone #: ext- [phone] 11/23/2020 22:44 [facility]: [id number] Sex: M : 1985 Age: 35y Reason for Study: epigastric pain, known [facility]/IV/DRIP/FLUID ORDERSOrder Description Priority Entered Acknowledged InitialedLR IV [...] rce(s) Supporting Document(s) ID Date Data Source [id number] 11/23/2020 10:52:00 PM EDT [facility] 1 Medication Reconciliation Report [facility] Emergency Department [address] [place] [address] Phone #: ext- [phone] 11/23/2020 22:44 Patient: [...] rce(s) Supporting Document(s) ID Date Data Source [id number] 11/23/2020 10:52:00 PM EDT [facility] 1 Medication Administration Record [facility] Emergency Department [address] [place] [address] Phone #: ext- [phone] 11/23/2020 22:44 Patient: SHERRIE BYRNE Sex: M : 1985 Age: 35yWeight: 83.9 kgHeight/Length: 71 inBMI: 25.8ALLERGIES: Sulfa Antibiotics Date/Time Medication Administered Medication OrderedStart LR [IV] LR IV : Bolus 500 mL, then 87338:06 11/24/2020 Dose: IV Fluids mL/hrTina Lonnie Mckenna [...] rce(s) Supporting Document(s) ID Date Data Source [id number] 11/23/2020 10:52:00 PM EDT [facility] 1 General Instructions [facility] Emergency Department [address] [place] [address] Phone #: ext- [phone] 11/23/2020 22:44 [id number] Sex: M : 1985 Age: 35yEarly small bowel obstruction associated with intestinal bands / adhesions.Cholelithiasis. No obstruction or cholecystitis.Pancreatic Mass with Metastases.INSTRUCTIONSDrink plenty of fluids. Avoid alcohol. Avoid fatty, fried/greasy, lactose-containing (such as milk, cheeseand ice cream), salty and spicy foods. No alcohol. Do not smoke.(PLEASE TRY TO OBTAIN CARE AT HIGHER LEVEL OF CARE [facility] IN ORDER TO GET QUICKDIAGNOSIS AND QUICK [...] department as needed. Follow up with a auto wheel alignment specialist and surgeon today.Reason for referral: evaluation and [...] been discussed with the 2 General Instructions [facility] Emergency Department [address] [place] [address] Phone #: ext- [phone] 11/23/2020 22:44 Patient: [...] I understand that a doctor [facility] wants to give me certain medicalcare. The doctor explained that care to me, and I understand what that care is. The doctor also explainedto me what could happen to me if I leave here without having that care, and I understand what he said. Iwant to leave this hospital without receiving the recommended care. I know that I am welcome to return [facility] at any time to receive the recommended care or any other care that I may need at any time,regardless of my ability to pay for such care.(Electronically signed by Nicolasa Alberts M.D. 11/24/2020 03:35) Name Value Range Interpretation Code Description Data Ellen rce(s) Supporting Document(s) ID Date Data Source [id number] 11/23/2020 10:52:00 PM EDT [facility] 1 Clinical Report - Nurses [facility] Emergency Department [address] [place] [address] Phone #: ext- [phone] 11/23/2020 22:44 Patient: SHERRIE BYRNE Sex: M : 1985 Age: 35yTRIAGETriage time: 22:45 11/23/2020.Chief Complaint: CHEST PAIN.( reports that it is a recurrent issue. Tonight at 8 pm he was so uncomfortable that he couldn't sleep.). Hehas had nausea. He has had fever ("I feel fevered").Treatment [employer]:(Seen at [facility] 2 weeks ago , Saw Dr Richardson [...] had thoughts 2 Clinical Report - Nurses [facility] Emergency Department [address] [place] [address] Phone #: ext- [phone] 11/23/2020 22:44 Patient: SHERRIE BYRNE Sex: M : 1985 Age: 35y about harming or killing others?". ABUSE ASSESSMENT: No report of abuse. FALL RISK ASSESSMENT: Fall risk assessment completed. Risk factors identified include severe pain. Fall interventions initiated. Bed in low position. Brakes on. --23:03 11/23/20 Sade Mckenna R.N.PHYSICAL [id number] 11/23/20. Ambulatory to room.GENERAL / NEURO / [...] Mckenna R.N. 3 Clinical Report - Nurses [facility] Emergency Department [address] [place] [address] Phone #: ext- [phone] 11/23/2020 22:44 Patient: SHERRIE BYRNE [facility]#: [id number] Sex: M : 1985 Age: 35y Patient transported to [place] by wheelchair with electrophysiology technician. --00:21 11/24/20 Sade Mckenna R.N. 23:00 11/23/20. f[employer] special agent, NIBP monitor and pulse oximeter placed on [...] rce(s) Supporting Document(s) ID Date Data Source [id number] 11/23/2020 10:52:00 PM EDT [facility] 1 Clinical Report - Physicians/Mid Levels [facility] Emergency Department [address] [place] [address] Phone #: ext- [phone] 11/23/2020 22:44 Patient: SHERRIE BYRNE Sex: M [...] (pt lives 1 hr from here, past [place], was seen at [facility] ER on 11/14 for abdominal pain, had CTAP w IV that showed possible pancreatic neoplasm w mets and gallstones; pt w as referred to Dr. Richardson today who told him about results and was not sure; pt visited a friend here in [facility] then pain was too bad so came here). No recent travel. Similar symptoms previously. ( [facility] Recent [facility] care: The patient was seen recently by a health care provider. ( today at Dr. Richardson's office, surgeon in [place]).REVIEW OF SYSTEMSNo constipation, black stools, hematemesis, difficulty [...] Antibiotics. 2 Clinical Report - Physicians/Mid Levels [facility] Emergency Department [address] [place] [address] Phone #: [phone] ext- [phone] 11/23/2020 22:44 Patient: SHERRIE BYRNE Sex: M [...] No sensory deficit.LABS, X-RAYS, AND EKGAbdominal CT: [facility] Report Call: [phone] Online chat: [email or web address] Name: SHERRIE BYRNE (Age): 1985 35 Gender: MDate of Exam: 11/24/2020 [id number] Physician: NICOLASA ALBERTS # of Images: [id number] As: CT ABDOMEN/PELVIS WPROCEDURE INFORMATION:Exam: CT Abdomen And Pelvis With ContrastExam date and time: 11/24/2020 12:28 AMAge: 35 years oldClinical indication: Abdominal pain; Patient HX: Epigastric pain, known pancreatic mass MA on CTon 11/14 in at other facilityTECHNIQUE:Imaging protocol: Computed tomography of the abdomen and pelvis with contrast. 3 Clinical Report - Physicians/Mid Levels [facility] Emergency Department [address] [place] [address] Phone #: ext- [phone] 11/23/2020 22:44 Patient: [...] preliminary and final interpretation, please notify [email or web address] you do not have access to our QA portal, call our QA team at [phone] STATEMENTThis report is intended only for the use of the referring physician, and only in accordance with law, If youreceived this in error, call [phone] 2 of 2IMPRESSION:1. Dilated small bowel consistent [...] disease. 4 Clinical Report - Physicians/Mid Levels [facility] Department [address] [place] [address] Phone #: ext- [phone] 11/23/2020 22:44 Patient: SHERRIE BYRNE Sex: M : 1985 Age: 35y6. Left lower lobe pulmonary nodule. Follow-up as clinically indicated.Thank you for allowing us to participate in the care of your patient.Dictated and Authenticated by: Nikita Cardoza MD11/24/2020 1:44 AM Eastern Time ([facility]). Study type: abdomen and pelvis. Abdominal [...] 10.2) 5 Clinical Report - Physicians/Mid Levels [facility] Emergency Department [address] [place] [address] Phone #: ext- [phone] 11/23/2020 22:44 Patient: [...] Male GFR Interprentation 20-49 yrs >60 mL/min Ynctov60-68 yrs >56 mL/min Normal 60-69 yrs >49 mL/min Normal 70-79yrs>42 mL/min Normal 80 and above >35 mL/min Normal Female GFRInterpretation 20-39 yrs >60 mL/min Normal 40-49 yrs >58 mL/minNormal 50-59 yrs >51 mL/min Normal 60-69 yrs >45 mL/min Srhrvy05-79 yrs >39 mL/min Normal 80 and above >32 mL/min NormalLipase: (SILVERIO: 11/23/2020 22:55) ( [facility] 11/24/2020 00:08) Final results Test Result Flag Units (Reference) LIPASE 30 U/L (13 - 60)UA REFLEX TO UA CULTURE: (SILVERIO: 11/24/2020 01:05) ( [facility] 11/24/2020 01:26) Final results Test Result Flag [...] (NORMAL: NONELactic Acid: (SILVERIO: 11/23/2020 22:55) ( [facility] [place] 11/23/2020 23:50) Final results Test Result Flag Units (Reference) LACTIC ACID 1.3 MMOL/L (0.2 - 2.2)CPK: (SILVERIO: 11/23/2020 22:55) ( [facility] [place] 11/24/2020 00:09) Final results Test Result Flag Units (Reference) CPK 73 U/L (30 - 170)CRP: (SILVERIO: 11/23/2020 22:55) ( [facility] [place] 11/24/2020 00:09) Final results Test Result Flag Units (Reference) CRP-HS 2.54 MG/L (1.00 - 3.00) CDC/S HS-CRP CUT-OFF: RELATIVE RISK: <1.0 mg/LLow 1.0 - 3.0 mg/L Average >3.0 mg/LHigh Optimally, the average of HS-CRP results repeated two weeks apart should be used for 6 Clinical Report - Physicians/Mid Levels [facility] Emergency Department [address] [place] [address] Phone #: ext- [phone] 11/23/2020 22:44 Patient: SHERRIE BYRNE Sex: M [...] end up anywhere since most hospitals in [facility] are full because of Covid and Vaccine mandate; pt prefers to sign out AMA and he will have his father drive him to [place] in the morning; pt is capable of deciding AMA; will wait for morphine to wear off before he leaves the premises; pt understands d/c instructions and urgency to get this evaluated since 1st s imilar CT was at [facility] on 11/24/20. Patient counseled in person regarding [...] QUICK 7 Clinical Report - Physicians/Mid Levels [facility] Emergency Department [address] [place] [address] Phone #: ext- [phone] 11/23/2020 22:44 Patient: [...] department as needed. Follow up with a auto wheel alignment specialist and surgeon today.Reason for referral: evaluation and [...] what he said. Iwant to [facility] without receiving the recommended care. I know that I am welcome to return [facility] at any time to receive the recommended care or any other care that I may need at any time,regardless of my ability to pay for such care. 8 Clinical Report - Physicians/Mid Levels [facility] Emergency Department [address] [place] [address] Phone #: ext- [phone] 11/23/2020 22:44 Patient: SHERRIE BYRNE Sex: M : 1985 Age: 35y(Electronically signed by Nicolasa Alberts M.D. 11/24/2020 03:35) Name Value Range Interpretation Code Description Data Ellen rce(s) Supporting Document(s) ID Date Data Source [id number] 11/24/2020 01:26:00 AM EDT [facility] Name Value Range Interpretation Code Description Data Ellen rce(s) Supporting Document(s) UA REFLEX TO UA CULTURE [facility] yellow NORMAL: Yellow [facility] CLARITY clear NORMAL: Clear [facility] Specific gravity of Urine by Test strip 1.005 1.001 - 1.030 [facility] pH 5 5 - 9 [facility] Glucose [Mass/volume] in Urine by Test strip NORM NORMAL: Negat [facility] Bilirubin.total [Presence] in Urine by Test strip NEG NORMAL: Negative [facility] Ketones [Presence] in Urine by Test strip NEG NORMAL: Negative [facility] Protein [Mass/volume] in Urine by Test strip 15 NORMAL: Negat [facility] Nitrite [Presence] in Urine by Test strip NEG NORMAL: Negative [facility] BLOOD NEG NORMAL: Negative [facility] Leukocyte esterase [Presence] in Urine by Test strip NEG VLAD L: Negative [facility] Urobilinogen [Mass/volume] in Urine by Test strip NOR less joleen n 1.0 mg/dL [facility] MICROSCOPIC See Below [facility] WBC None Seen NORMAL: NONE SEEN [facility] Erythrocytes [#/volume] in Urine by Test strip 0 - 1 NORMAL: NON E SEEN [facility] EPITHELIAL FEW NORMAL: NONE SEEN [facility] ID Date Data Source [id number] 11/24/2020 12:09:00 AM EDT [facility] Name Value Range Interpretation Code Description Data Ellen rce(s) Supporting Document(s) C reactive protein [Mass/volume] in Serum or Plasma by High sensitivity method 2.54 MG/L 1.00 - 3.00 [facility] HS-CRP CUT-OFF: RELATIVE RISK: <1.0 mg/L Low 1.0 - 3.0 mg/L Average >3.0 mg/L High Optimally, the average of HS-CRP results repeated two weeks apart should be used for risk assessment. ID Date Data Source [id number] 11/24/2020 12:08:00 AM EDT [facility] Name Value Range Interpretation Code Description Data Ellen rce(s) Supporting Document(s) Creatine kinase [Enzymatic activity/volume] in Serum or Plasma 7 3 U/L 30 - 170 [facility] ID Date Data Source [id number] 11/24/2020 12:08:00 AM T [facility] Name Value Range Interpretation Code Description Data Ellen rce(s) Supporting Document(s) Lipase [Enzymatic activity/volume] in Serum or Plasma 30 U/L 13 - 60 [facility] ID Date Data Source [id number] 11/24/2020 12:08:00 AM T [facility] Name Value Range Interpretation Code Description Data Ellen rce(s) Supporting Document(s) COMPREHENSIVE METABOLIC PANEL [facility] COMPREHENSIVE METABOLIC PANEL Sodium [Moles/volume] in Serum or Plasma 140 mEq/L 134 - 153 [facility] Potassium [Moles/volume] in Serum or Plasma 4.0 mEq/L 3.6 - 5.0 [facility] Chloride [Moles/volume] in Serum or Plasma 102 mEq/L 98 - 107 [facility] Carbon dioxide, total [Moles/volume] in Serum or Plasma 26 MEQ/L 22 - 30 [facility] Glucose [Mass/volume] in Serum or Plasma 109 MG/DL 70 - 99 H [facility] BUN 8 MG/DL 7 - 21 [facility] Creatinine [Mass/volume] in Serum or Plasma 0.9 MG/DL 0.7 - 1.5 [facility] BUN/CREAT 9 8 - 27 [facility] al Protein [Mass/volume] in Serum or Plasma 7.2 G/DL 6.3 - 8.2 [facility] Albumin [Mass/volume] in Serum or Plasma 5.2 G/DL 3.9 - 5.0 H [facility] Globulin [Mass/volume] in Serum by calculation 2.0 GM/DL 2.4 - 3.2 L [facility] A/G RATIO 2.6 0.8 - 2.0 H [facility] al Calcium [Mass/volume] in Serum or Plasma 9.6 MG/DL 8.4 - 10.2 [facility] Bilirubin.total [Mass/volume] in Serum or Plasma 1.5 MG/DL 0.2 - 1.3 H [facility] Alkaline phosphatase [Enzymatic activity/volume] in Serum or Plasma 89 U/L 38 - 126 [facility] Aspartate aminotransferase [Enzymatic activity/volume] in Serum or Plasma 13 U/L 5 - 40 [facility] Alanine aminotransferase [Enzymatic activity/volume] in Seru m or Plasma 13 U/L 7 - 56 [facility] Anion gap 3 in Serum or Plasma 12.0 mmol/L 8.0 - 16.0 [facility] AGE 35 yrs [facility] al NON-AA GFR >60 mL/min [facility] ital AFR AMER GFR >60 mL/min [facility] Male GFR In [...] >32 mL/min Normal ID Date Data Source [id number] 11/24/2020 12:08:00 AM EDT [facility] Name Value Range Interpretation Code Description Data Ellen rce(s) Supporting Document(s) TROPONIN T <0.01 NG/ML 0.00 - 0.10 [facility] ospital TROPONIN T0.1 ng/ml Recommended as the c linical threshold value Ivon Mcclain. ID Date Data Source [id number] 11/23/2020 11:50:00 PM EDT [facility] Name Value Range Interpretation Code Description Data Ellen rce(s) Supporting Document(s) CBC W/AUTOMATED DIFF [facility] COMPLETE BLOOD COUNT Leukocytes [#/volume] in Blood by Automated count 8.6 10^3/uL 4.2 - 1 1.0 [facility] Erythrocytes [#/volume] in Blood by Automated count 5.07 10^6/uL 4. 50 - 6.30 [facility] Hemoglobin [Mass/volume] in Blood 15.3 g/dL 14.0 - 16.0 [facility] Hematocrit [Volume Fraction] of Blood by Automated count 45.3 % 4 1.0 - 51.0 [facility] Erythrocyte mean corpuscular volume [Entitic volume] by Auto mated count 89.3 fL 80.0 - 94.0 [facility] Erythrocyte mean corpuscular hemoglobin [Entitic mass] by Automated count 30.2 pg 27.0 - 34.0 [facility] Erythrocyte mean corpuscular hemoglobin concentration [Mass/volume] by Automated count 33.8 g/dL 31.0 - 36.0 [facility] Erythrocyte distribution width [Ratio] by Automated count 12.3 % 11.5 - 14.8 [facility] Platelets [#/volume] in Blood by Automated count 317 10^3/uL 150 - 45 0 [facility] Platelet mean volume [Entitic volume] in Blood by Automated count 8.9 fL 7.4 - 10.4 [facility] Neutrophils/100 leukocytes in Blood by Automated count 70.1 % 37. 0 - 80.0 [facility] Lymphocytes/100 leukocytes in Blood by Manual count 19.8 % 25.0 - 40.0 L [facility] Monocytes/100 leukocytes in Blood by Automated count 6.0 % 3.0 - 8.0 [facility] Eosinophils/100 leukocytes in Blood by Automated count 3.5 % 0.0 - 7.0 [facility] Basophils/100 leukocytes in Blood by Automated count 0.3 % 0.0 - 2.0 [facility] %IG 0.3 % 0.0 - 0.[address] [facility] al %NRBC 0.0 % 0.0 - 0.0 [facility] al Neutrophils [#/volume] in Blood by Automated count 6.03 10^3/uL 2.00 - 6.90 [facility] Lymphocytes [#/volume] in Blood by Automated count 1.71 10^3/uL 0.60 - 3.40 [facility] Monocytes [#/volume] in Blood by Automated count 0.52 10^3/uL 0.00 - 0.90 [facility] Eosinophils [#/volume] in Blood by Automated count 0.30 10^3/uL 0.00 - 0.70 [facility] Basophils [#/volume] in Blood by Automated count 0.03 10^3/uL 0.00 - 0.20 [facility] #IG 0.03 10^3/uL 0.00 - 0.10 [facility] #NRBC 0.00 10^3/uL 0.00 - 0.00 [facility] MANUAL DIFF NOT INDICATED [facility] RBC MORPH NOT INDICATED [facility] ID Date Data Source [id number] 11/23/2020 11:50:00 PM EDT [facility] Name Value Range Interpretation Code Description Data Ellen rce(s) Supporting Document(s) Lactate [Moles/volume] in Serum or Plasma 1.3 MMOL/L 0.2 - 2.2 [facility] Procedure Social History No Information Vital Signs ID Date Data Source UNK Name Value Range Interpretation Code Description Data Source(s) Body height 70 [in_i] 70 [in_i] [facility]) 5'10" Systolic blood pressure 124 mm[Hg] 124 mm[Hg] M [facility] ([facility]) Body surface area Derived from formula 2.04 m2 2.04 m2 [facility] ([facility]) Diastolic blood pressure 82 mm[Hg] 82 mm[Hg] [facility] ([facility]) Body temperature 98.2 [degF] 98.2 [degF] [facility] ([facility] ) Body weight 189.38 [lb_av] 189.38 [lb_av] [facility] ([facility]) Body mass index (BMI) [Ratio] 27.2 kg/m2 27.2 k g/m2 [facility] ([facility]) [place] body weight 166 [lb_av] 166 [lb_av] [facility] ([facility]) Body weight 85.900 kg 85.900 [facility] Body mass index (BMI) [Ratio] 26.7 kg/m2 26.7 k g/m2 [facility] ([facility]) Body temperature 97.5 [degF] 97.5 [degF] [facility] ([facility]) Body height 72.25 [in_i] 72.25 [in_i] [facility] ([facility] ) 6'0.25" Body weight 198.50 [lb_av] 198.50 [lb_av] [facility] T ([facility]) ID Date Data Source [id number] 12/03/2020 12:10:15 PM EDT [facility] Name Value Range Interpretation Code Description Data Source(s) WEIGHT RECORDED 185 lb 185 lb [facility] Body height Measured 71 in 71 in [facility]
[2020-12-16] MEDS ORDERED: MORP15TA2 PO (00:38)
[2020-12-16] MEDS ORDERED: METO10TA2 PO (00:38)
[2020-12-16] MEDS ORDERED: SENN8.6T28 PO (00:38)
== END 2020-12-15 04:20 | disposition left against medical advice (07) ==
LOC: M ED 01:58
DX: Z53.21 Procedure and treatment not carried out due to patient leaving prior to being seen by health care provider (principal)

== ENCOUNTER 2020-12-15 18:13 | Inpatient (IN) | payer MEDICAID ==
[~2020-12-15] VITALS: Ht 180.3 cm; Wt 76.4 kg
--- OUTSIDE RECORDS SUMMARY | 2020-12-15 18:20 | CCD ---
Author Author [facility] Organization [facility] Address Unknown Phone Unavailable Care Team Providers Care Calibration Laboratory Technician Name Role Phone ED, TEST DEFAULT Unavailable Unavailable Johny NEWBY MD Unavailable Unavailable Johny NEWBY MD Unavailable Unavailable Johny NEWBY MD Unavailable Unavailable Johny NEWBY MD Unavailable Unavailable Johny NEWBY MD Unavailable Unavailable Johny NEWBY MD Unavailable Unavailable NO, PCP Unavailable Unavailable GAYAM, [...] Frank CARMONA Unavailable Unavailable Hightower, L Frank CAROMNA Unavailable Unavailable Hightower, L Frank CARMONA Unavailable [...] Unavailable Unavailable Jeramy CHILDS MD Unavailable Unavailable Jeraym CHILDS MD Unavailable Unavailable Jeramy CHILDS MD [...] is protected by Article 27-F of the [facility] Public Health law. If you continue you may have access to information: Regarding HIV / AIDS; Provided by facilities licensed or operated by the [facility] Office of Mental Health; or Provided by the [facility] Office for People With Developmental Disabilities. If such information is present, then the following [facility] mandated warning applies: This information [...] law may result in a fine or halfway sentence or both. A general authorization for the release of medical or other information is NOT sufficient authorization for further disc losure. Allergies and Adverse Reactions Type Description Substance Reaction Status Data Source(s ) Propensity to adverse reactions SULFA ANTIBIOTICS SULFA ANTIBIOTICS O ther [facility] Family History Family Member Name Family Member Gender Family Member Status Date o f Status Description Data Source(s) Unknown Male Problem [facility] ([facility]) Encounters Encounter Providers Location Date Indications Data Source(s ) Outpatient Attender: Irwin Matthews MDReferrer: FANI ELLINGTON MD 12/21/2020 12:00:[address] [facility] Outpatient Attender: Irwin Matthews MDReferrer: FANI ELLINGTON MD 12/16/2020 12:00:[address] [facility] Outpatient Attender: Kaleigh Hilario 12/15/2020 12:00:[address] [facility] Outpatient Attender: FANI ELLINGTON MD 12/09/2020 12:00: 00 AM [facility] Malignant neoplasm of pancreas, unspecified [facility] Malignant neoplasm of pancreas, unspecif ied Outpatient Attender: FANI ELLINGTON MD 12/09/2020 12:00:[address] [facility] Inpatient Attender: TASHIA PHOENIX MD Admitter: TASHIA PHOENIX MDReferrer: TASHIA PHOENIX MD 11/30/2020 12:00:00 AM EDT - 11/30/2020 11:59:00 PM EDT [facility] Inpatient Attender: MAGDALENE MAUREENRIENE RESIDENTReferrer: MAREK JOHNSTON RESIDENT 11/30/2020 12:00:00 AM EDT [facility] Inpatient Attender: Alejo García DOAtten sandy: FANI ELLINGTON MDAttender: MAGDALENE JOHNSTON RESIDENTAttender: TASHIA PHOENIX MDAttender: KESHIA NEWBY MDAttender: PARIS AHN MDAdmitter: MAGDALENE JOHNSTON RESIDENTReferrer: MAGDALENE JOHNSTON RESIDENTConsultant: Alejo García DO [id number] 11/29/2020 12:00:00 AM EDT - 12/05/2020 01:15:00 PM EDT [facility] Nausea Patient discharged. Outpatient Attender: Dana Betts MD [id number] 11/28/2020 10:55:45 AM EDT [facility] Inpatient Attender: YOLY CHILDS MDReferrer: YOLY CHILDS MD 11/27/2020 12:00:00 AM EDT Other specified diseases of pancreas [facility] Other specified diseases of pancreas Inpatient Attender: YOLY CHILDS MDAtt yennifer: TASHIA PHOENIX MDAttender: PARIS AHN MDAttender: DEFAULT EDAdmitter: TASHIA PHOENIX MD [id number] 11/26/2020 12:00:00 AM EDT - 11/28/2020 10:30:00 AM EDT sent by provider [facility] sent by provider Patient discharged. Emergency Attender: NICOLASA ALBERTSConsultant: PCP NO 11/23/2020 10:52:00 PM EDT - 11/24/2020 03:21:00 AM EDT [facility] Patient discharged. Outpatient Attender: SHERRIE Dunaway/Brittney/Gato/Sherry indl 11/23/2020 10:15:00 AM EDT [facility] ([facility] ) OFFICE OUTPATIENT VISIT 15 MINUTES Attender: NELL ENGLISH Phys ical Therapy 10/01/2020 04:00:00 PM EDT [facility] ([facility] Outpatient Attender: Frank Hightower MD Physical Therapy 09/09/2020 0 8:45:00 AM EDT [facility] ([facility] ) Outpatient Attender: NELL ENGLISH Physical Therapy 08/25/2020 1 0:00:00 AM EDT [facility] ([facility] Medications Medication Brand Name Start [...] A DAY AFTER 1 WEEK SOLD: 09/01/2020 [facility] gabapentin 100 MG Oral Capsule Gabapentin 08/25/2020 12:00:00 AM EDT ORAL active [facility] ([facility]) tizanidine 4 MG Oral Tablet Tizanidine HCL 08/25/2020 12:00:00 AM EDT ORAL active [facility] ([facility] ) tizanidine 4 MG Oral Tablet TIZANIDINE HCL 08/25/2020 12:00:00 AM EDT tablet 60 TAKE ONE TABLET BY MOUTH EVERY 6 HOURS NEEDED TAKE ONE TABLET BY MOUTH EVERY 6 HOURS NEEDED SOLD: 09/01/2020 [facility] Insurance Providers Payer name Policy type / Coverage type Policy ID Covered constitution party ID Covered constitution party's relationship to butler Policy Butler Plan Information [facility] () Workers Compensation [id number] Self [id number] [facility] () Workers Compensation [id number] Self [id number] [facility] () Workers Compensation [id number] Self [id number] [id number] [id number] MEDICAID [id number] Self [id number] BCBS EMPIRE STAN DIV [id number] SP [id number] STATE INSURANCE FUND O [id number] S [id number] BCBS EMPIRE STAN DIV [id number] SP [id number] SELF PAY ONLY [id number] SP [id number] O UNAVAILABLE UNAVAILA BLE STATE INSURANCE FUND [id number] SP [id number] SELF PAY UNAVAILABLE SP UNAVAILA BLE NATIONAL GENERAL INSURANCE [id number] SP [id number] NVS MEDICAID [id number] SP [id number] P BCBS OF [place] WATN [id number] SP [id number] BLUE CROSS BLUE SHIELD -O/P [id number] STATE INSURANCE FUND [id number] SP [id number] STATE INSURANCE FUND [id number] SP [id number] Problems, Conditions, and Diagnoses Code Display Name Description Problem Type Effective Dates Data Source(s) C25.9 Malignant neoplasm of pancreas, unspecif ied Malignant neoplasm of pancreas, unspecified Diagnosis 12/09/2020 12:00:00 AM EDT [facility] Nausea Nausea Diagnosis 11/29/2020 01:32:00 PM ED T [facility] R10.9 Unspecified abdominal pain Unspecified abdominal pain Diagnosis 11/27/2020 05:32:08 PM EDT [facility] K86.89 Other specified diseases of pancreas Oth er specified diseases of pancreas Diagnosis 11/27/2020 05:32:08 PM EDT [facility] sent by provider sent by provider Diagnosis 11/26/2020 12 :15:00 PM EDT [facility] [id number] Personal history of other diseases of th e digestive system Personal history of other diseases of the digestive system [facility] Procedure and treatment not carried out because of patient's decision for unspecified reasons Procedure and treatment not carried out because of patient's decision for unspecified reasons Diagnosis [facility]2020 [facility] C801 Malignant (primary) neoplasm, unspecifie d Malignant (primary) neoplasm, unspecified Diagnosis 11/23/2020 10:52:00 PM EDT [facility] 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 Diagnosis 11/23/2020 10:52:00 PM ED T [facility] K8020 Calculus of gallbladder without cholecys titis without obstruction Calculus of gallbladder without cholecystitis without obstruction Diagnosis 11/23/2020 10:52:00 PM EDT [facility] R1013 Epigastric pain Epigastric pain Diagnosis 11/23/2020 10:5 2:00 PM EDT [facility] Surgeries/Procedures Procedure Description Date Indications Data Source(s) OFFICE OUTPATIENT NEW 45 MINUTES 11/23/2020 12:00:00 A M EDT [facility] ([facility]) OFFICE OUTPATIENT VISIT 15 MINUTES 10/01/2020 12:00:00 AM EDT [facility] ([facility]) OFFICE OUTPATIENT VISIT 25 MINUTES 09/09/2020 12:00:00 AM EDT [facility] ([facility]) RADEX SPINE LUMBOSACRAL MINIMUM 4 VIEWS 08/25/2020 12: 00:00 AM EDT [facility] ([facility]) OFFICE OUTPATIENT NEW 45 MINUTES 08/25/2020 12:00:00 A M EDT [facility] ([facility]) Results ID Date Data Source [id number] 12/15/2020 01:51:21 PM EDT [facility] Name Value Range Interpretation Code Description Data Ellen rce(s) Supporting Document(s) Discharge Summary [facility] FEQVEa5lVkQVMpLq13/KHNjuXPEjl3JkLXudYQd3ZIspSNFeK7DwAKG2bE5hXFF3ZPuRBxJwWsDnMWG4 lbm [file] 9++5pD18ziSJxa6Dn6z/85t/DdX1inmX9yX/eef [file] DQo+It6Zl4QqnfX8esYdSXahRZA6LP1GAYHII8VEXt== ID Date Data Source [id number] 12/08/2020 02:00:00 AM EDT [facility] Name Value Range Interpretation Code Description Data Eleln rce(s) Supporting Document(s) SARS coronavirus 2 RNA [Presence] in Res piratory specimen by LARRY with probe detection NEGATIVE [facility] This lab was ordered by [facility] a nd reported by [facility]. ID Date Data Source [id number] 12/06/2020 08:49:24 AM EDT [facility] Name Value Range Interpretation Code Description Data Ellen rce(s) Supporting Document(s) Discharge Summary [facility] RIQVJz4vLeSOCrOn35/GZBljNCBcv3YvQMtiXUs3VDcgRUNwM8BiMXW5tE9tNEK0DDwIImKkElFmPXMs lbm [file] AgICAgICAgICAgICAgICAgICAgICAgICAgICAgICAg ICAgICAgICAgICAgICAgICAgICAgICAgICAgICAgICAgICAgICAgICAgICAgICAgICAgICAgDQogICAg ICAgICAgICAgICAgICAgICAgICAgICAgICAgICAgICAgICAgICAgICAgICAgICAgICAgICAgICAgICAg ICAgICAgICAgICAgICAgICAgICAgICAgICAgICAgIC AgICAgDQogICAgICAgICAgICAgICAgICAgICAgICAgICAgICAgICAgICAgICAgICAgICAgICAgICAgIC AgICAgICAgICAgICAgICAgICAgICAgICAgICAgICAgICAgICAgICAgICAgICAgDQogICAgICAgICAgIC AgICAgICAgICAgICAgICAgICAgICAgICAgICAgICAg ICAgICAgICAgICAgICAgICAgICAgICAgICAgICAgICAgICAgICAgICAgICAgICAgICAgICAgICAgDQog ICAgICAgICAgICAgICAgICAgICAgICAgICAgICAgICAgICAgICAgICAgICAgICAgICAgICAgICAgICAg ICAgICAgICAgICAgICAgICAgICAgICAgICAgICAgIC AgICAgICAgDQogICAgICAgICAgICAgICAgICAgICAgICAgICAgICAgICAgICAgICAgICAgICAgICAgIC AgICAgICAgICAgICAgICAgICAgICAgICAgICAgICAgICAgICAgICAgICAgICAgICAgDQogICAgICAgIC AgICAgICAgICAgICAgICAgICAgICAgICAgICAgICAg ICAgICAgICAgICAgICAgICAgICAgICAgICAgICAgICAgICAgICAgICAgICAgICAgICAgICAgICAgICAg DQogICAgICAgICAgICAgICAgICAgICAgICAgICAgICAgICAgICAgICAgICAgICAgICAgICAgICAgICAg ICAgICAgICAgICAgICAgICAgICAgICAgICAgICAgIC AgICAgICAgICAgDQogICAgICAgICAgICAgICAgICAgICAgICAgICAgICAgICAgICAgICAgICAgICAgIC AgICAgICAgICAgICAgICAgICAgICAgICAgICAgICAgICAgICAgICAgICAgICAgICAgICAgDQogICAgIC AgICAgICAgICAgICAgICAgICAgICAgICAgICAgICAg ICAgICAgICAgICAgICAgICAgICAgICAgICAgICAgICAgICAgICAgICAgICAgICAgICAgICAgICAgICAg QTJgGTx6U9fdMCItSJEpOJ7wXEo7Fw2+VCfRNqDlVRP6iiFbsH9XFX3lz3SnJEkaBWEad2PdUWk1SU4P XMTiXOzhGC8WEGyott7VZVEtOJAlcOTIc9heLjBiLO Z1RWInYtxlES0QCFXfR4eiyrNvZSBhPCSOJYgzCYFTUFadBAUUGZFjXCCiUoOiQpMoIYBlXQUfUSSXUJ S0VXShUzPrBJDmMVMzLC3CEGLeU991veRdDX9LWe5NVtNnIH7uvl4FNahyNHTpGuhNGmo9IVkrZB1OdP SujUS8MUYwMCEUTzIoQ5pvq2ZdPIUcLPOPQFwuQG2Q f7LlfJWwQCj+Fx0ROQ3pv8IsEEc4DYJcTP8drt7FLDrQYsZgC8UeuRzlWYOne1OyPHWfMKFOyH6rEWE6 XEW1NJBnPGTadaDARHBgfnSvjtRbC4ZsU9cvzgocZTGlEZLdGWAaHM1fIKPuNQLzUlN6AGLHUI7VXSUo DVPuxCQyJPTnBORNAL6EETsbCZW5TZBpboMbySOxEP eoNK8EIBCkpuVgAqogGKDSJVz+Zg8UVO6ml5DdOGy2SYBrVH6nds9BLFiWYgVkM5W2aNOmO8G3BBgaVh 5ATGDhTRJqMkznRNOZRDutIT2MAW7qmbR3QR4UzKFxJTGiOLYkxPLqCMb5U49sqXZpYYsjBO5MZYF+Pi A+Ib7AVRVoZXVfHGJuKcVyKMRSLxAkR6PaO8OUx3Hs C9RoPR79kLccvjUfQOerTZ3JBM6uFAYjSFLGOU6DdGKztB2cbsQnICAiTSRFChIrK57lgHLiKVNfTXT4 EEYsSa3VJLDyZ7MtscGcmGpijwSvTYMqTMBREZ8QWSfgxkDcfKWuuUolFP73wWvnUL9CHw6AYzWuNL3f dv7BqOKyLr6ISQD7Tp9TPWVvKWPvMGHeEZT4ZYTzVo PkJDwzGWHyPUEfTYW3AOHgEEKdGU7SRpMhLMHkMBC0LrauBGEbPPGfvr1QPDMvLZI2WrE3BNPqXSVxHA HuAVdfOKIdEKBjXRG3CQUsZBSuRJ2YSqZsRQSdOQTkUmqqQBLtMBHsaf9LNCSeIDTeJVG4SdSxHXMgLA BxQUdvBPKgNDA6KVEuHXPvFRTkAU3ZPkJrGFJqDMt8 PXotAXYpMLLifk4KGBWkOMWkRpU9LERkPJDiWRIbZTtvOTLkCFJtLtM9MMUiVRLfJJ0XDvRrISQyTEr5 WicjJYUfZBOvgv6ERPQzNNDxWWZhQuZpOCSeOYVwDZspUGQjRCEkDQI9MGIlACEnSB5OIfGvTIVwEvKi SOQhHTKmSKBeza3SIXVfJXXnIDLcRTIeTHTsILPiOM fdUNTyWYW1BeE9CZIeIWQsOA1AKiOlGRPxJgL9NiNfMRIqOSSdrn0XHKUjFIEqXrG0EnIdESUfTDRzWI ihAJBpBAR4UZCpMJJlZHLuQD6FHbCsRKExZcO8LUieQGGbEQBnoj0LDHIzWTQcRVnaOUMpVRAjEAJgQG lfUVWuFUH0TDY6MINjWZTiMC0CGiKiQMIkPuDbKHgy YTPaXRRvzn7BMCQjRIAqHlJ6LZIqKUUgZMPiOFoiYZKgGKI9WcXkXWHpWADfTW4JYhPjDJXyUjw6Yrzx LAFlMNKcnx4IYXMuDPRyMOV5WZAvVCQoVTDoKQisRHVgITV4HAi9JMAaXRXsMG6YUpMgFWTwTdj8Aufb KULkZNAhvr9HWJEoIULxOLhsNKEaBLIzKCFySYjsQL PmQWY1AOFuLVEsBUFnMS1HUkIeOJCdLHJzRhBqVZOmOWYwhf0XAGBxZHW0QRy3XGXuQRNsISDcFYvyUY FkDSX9NkD0BKGqUOQoKN0EUmRjVNLuOSQ5MRxsUNIfNRXnwh2XTLKbFFS4PUk6CQSxPVIiVHDkQGkxKC PwASY4LVE5PQErIHEhNV5TJpCkORUvHPBkCyrvVTNv HOSeno3PPEXmWAP2SfhsIuHtCJNvPDFcWFxyCWWzDOH2DNc4TIOoABLeMH3EOdIwKTYhYKpcPUNfLYPz NXAvdz2KtUPgwLgvkk3YUHeJQu6JnDysDVQzSQytSf5axJU3JUViIKGNNv7TqnDsPFAmCIAGZIdpJTQb YKMaJnSxRcP5DXO4WFvzHORmGsFyISS6KhJtDPR5Ya QoNjE8WECcNVJuQuGyKHb6L4O9ZxKoTnWgZSY6LgFcEavnWYV+OD8eIJg+Un1Dv9ZopoT4oaXaMQe9PN UfSX1VCJOKE1IDXn== ID Date Data Source [id number] 12/05/2020 02:39:26 AM EDT [facility] Name Value Range Interpretation Code Description Data Ellen rce(s) Supporting Document(s) Leukocytes [#/volume] in Blood by Automated count 3.9 10*3/uL 4-10 L [facility] Erythrocytes [#/volume] in Blood by Automated count 4.54 10*6/uL 4.6- 6.1 L [facility] Hemoglobin [Mass/volume] in Blood 13.5 g/dL 13.5-18 [facility] Hematocrit [Volume Fraction] of Blood by Automated count 40.6 % 4 1-53 L [facility] Erythrocyte mean corpuscular volume [Entitic volume] by Auto mated count 89.4 fL 80-96 [facility] Erythrocyte mean corpuscular hemoglobin [Entitic mass] by Automated count 29.7 pg 27-33 [facility] Erythrocyte mean corpuscular hemoglobin concentration [Mass/volume] by Automated count 33.2 g/dL 32.0-36.0 [facility] E[facility]th[facility] distribution width [Ratio] by Automated count 13.1 % 11.5-14.5 [facility] Platelets [#/volume] in Blood by Automated count 224 10*3/uL 150-400 [facility] Differential cell count method - Blood [facility] Neutrophils/100 leukocytes in Blood by Automated count 91 % [facility] Lymphocytes/100 leukocytes in Blood by Automated count 6 % [facility] Monocytes/100 leukocytes in Blood by Automated count 3 % [facility] Eosinophils/100 leukocytes in Blood by Automated count 0 % [facility] Basophils/100 leukocytes in Blood by Automated count 0 % [facility] Neutrophils [#/volume] in Blood by Automated count 3.58 10*3/uL 1.8-7 .0 [facility] Lymphocytes [#/volume] in Blood by Automated count 0.25 10*3/uL 1.2-4 .0 L [facility] Monocytes [#/volume] in Blood by Automated count 0.10 10*3/uL 0-0.8 [facility] Eosinophils [#/volume] in Blood by Automated count 0.00 10*3/uL 0-0.5 [facility] Basophils [#/volume] in Blood by Automated count 0.00 10*3/uL 0-0.2 [facility] Nucleated erythrocytes/100 leukocytes [Ratio] in Blood by Automated count 0 /100{WBCs} 0-0 [facility] ID Date Data Source [id number] 12/05/2020 02:59:25 AM EDT [facility] Name Value Range Interpretation Code Description Data Ellen rce(s) Supporting Document(s) Albumin [Mass/volume] in Serum or Plasma by Bromocresol green (BCG) dye binding method 4.5 g/dL 3.5-5.2 [facility] Bilirubin.total [Mass/volume] in Serum or Plasma 1.3 mg/dL <1.2 H [facility] Calcium [Mass/volume] in Serum or Plasma 9.2 mg/dL 8.6-10.0 [facility] Chloride [Moles/volume] in Serum or Plasma 99 mmol/L 98-107 [facility] Creatinine [Mass/volume] in Serum or Plasma 0.73 mg/dL 0.70-1.20 [facility] Glucose [Mass/volume] in Serum or Plasma 107 mg/dL 70-140 [facility] Alkaline phosphatase [Enzymatic activity/volume] in Serum or Plasma 65 U/L 40-129 [facility] Potassium [Moles/volume] in Serum or Plasma 4.5 mmol/L 3.4-5.1 [facility] Hemolyzed Protein [Mass/volume] in Serum or Plasma 6.4 g/dL 6.4-8.3 [facility] Sodium [Moles/volume] in Serum or Plasma 133 mmol/L 136-145 L [facility] Aspartate aminotransferase [Enzymatic activity/volume] in Serum or Plasma 118 U/L <40 H [facility] Urea nitrogen [Mass/volume] in Serum or Plasma 15 mg/dL 6-20 [facility] Osmolality of Serum or Plasma by calculation 278 mosm/kg 275-300 [facility] Creatinine/Urea nitrogen [Mass Ratio] in Serum or Plasma 20 [facility] Bicarbonate [Moles/volume] in Serum 23 mmol/L 22-29 [facility] Alanine aminotransferase [Enzymatic activity/volume] in Seru m or Plasma 187 U/L <41 H [facility] Anion gap 3 in Serum or Plasma 12 mmol/L 8-15 [facility] Glomerular filtration rate/1.73 sq M pre dicted among non-blacks [Volume Rate/Area] in Serum or Plasma by Creatinine-based formula (MDRD) >6 0 [facility] Glomerular filtration rate/1.73 sq M pre dicted among blacks [Volume Rate/Area] in Serum or Plasma by Creatinine-based formula (MDRD) >60 [facility] ID Date Data Source [id number] 12/05/2020 02:59:25 AM [facility] Name Value Range Interpretation Code Description Data Ellen rce(s) Supporting Document(s) Magnesium [Mass/volume] in Serum or Plasma 2.5 mg/dL 1.6-2.6 [facility] ID Date Data Source [id number] 12/05/2020 02:59:25 AM [facility] Value Range Interpretation Code Description Data Ellen rce(s) Supporting Document(s) Phosphate [Mass/volume] in Serum or Plasma 3.3 mg/dL 2.5-4.5 [facility] ID Date Data Source [id number] 12/04/2020 12:44:36 AM [facility] Value Range Interpretation Code Description Data Ellen rce(s) Supporting Document(s) Leukocytes [#/volume] in Blood by Automated count 7.2 10*3/uL 4-10 [facility] Erythrocytes [#/volume] in Blood by Automated count 4.35 10*6/uL 4.6- 6.1 L [facility] Hemoglobin [Mass/volume] in Blood 12.9 g/dL 13.5-18 L [facility] Hematocrit [Volume Fraction] of Blood by Automated count 39.0 % 4 1-53 L [facility] Erythrocyte mean corpuscular volume [Entitic volume] by Auto mated count 89.6 fL 80-96 [facility] Erythrocyte mean corpuscular hemoglobin [Entitic mass] by Automated count 29.6 pg 27-33 [facility] Erythrocyte mean corpuscular hemoglobin concentration [Mass/volume] by Automated count 33.0 g/dL 32.0-36.0 [facility] Erythrocyte distribution width [Ratio] by Automated count 13.2 % 11.5-14.5 [facility] Platelets [#/volume] in Blood by Automated count 265 10*3/uL 150-400 [facility] Differential cell count method - Blood [facility] Neutrophils/100 leukocytes in Blood by Automated count 88 % [facility] Lymphocytes/100 leukocytes in Blood by Automated count 5 % [facility] Monocytes/100 leukocytes in Blood by Automated count 7 % [facility] Eosinophils/100 leukocytes in Blood by Automated count 0 % [facility] Basophils/100 leukocytes in Blood by Automated count 0 % [facility] Neutrophils [#/volume] in Blood by Automated count 6.34 10*3/uL 1.8-7 .0 [facility] Lymphocytes [#/volume] in Blood by Automated count 0.36 10*3/uL 1.2-4 .0 L [facility] Monocytes [#/volume] in Blood by Automated count 0.51 10*3/uL 0-0.8 [facility] Eosinophils [#/volume] in Blood by Automated count 0.00 10*3/uL 0-0.5 [facility] Basophils [#/volume] in Blood by Automated count 0.00 10*3/uL 0-0.2 [facility] Nucleated erythrocytes/100 leukocytes [Ratio] in Blood by Automated count 0 /100{WBCs} 0-0 [facility] ID Date Data Source [id number] 12/04/2020 01:00:28 AM EDT [facility] Name Value Range Interpretation Code Description Data Ellen rce(s) Supporting Document(s) Albumin [Mass/volume] in Serum or Plasma by Bromocresol green (BCG) dye binding method 4.4 g/dL 3.5-5.2 [facility] al Bilirubin.total [Mass/volume] in Serum or Plasma 1.1 mg/dL <1.2 [facility] Calcium [Mass/volume] in Serum or Plasma 8.7 mg/dL 8.6-10.0 [facility] Chloride [Moles/volume] in Serum or Plasma 99 mmol/L 98-107 [facility] Creatinine [Mass/volume] in Serum or Plasma 0.76 mg/dL 0.70-1.20 [facility] Glucose [Mass/volume] in Serum or Plasma 103 mg/dL 70-140 [facility] Alkaline phosphatase [Enzymatic activity/volume] in Serum or Plasma 63 U/L 40-129 [facility] Potassium [Moles/volume] in Serum or Plasma 4.3 mmol/L 3.4-5.1 [facility] Hemolyzed Protein [Mass/volume] in Serum or Plasma 6.2 g/dL 6.4-8.3 L [facility] Sodium [Moles/volume] in Serum or Plasma 136 mmol/L 136-145 [facility] Aspartate aminotransferase [Enzymatic activity/volume] in Serum or Plasma 195 U/L <40 H [facility] Urea nitrogen [Mass/volume] in Serum or Plasma 13 mg/dL 6-20 [facility] Osmolality of Serum or Plasma by calculation 282 mosm/kg 275-300 [facility] Creatinine/Urea nitrogen [Mass Ratio] in Serum or Plasma 17 [facility] Bicarbonate [Moles/volume] in Serum 24 mmol/L 22-29 [facility] Alanine aminotransferase [Enzymatic activity/volume] in Seru m or Plasma 164 U/L <41 H [facility] Anion gap 3 in Serum or Plasma 13 mmol/L 8-15 [facility] Glomerular filtration rate/1.73 sq M pre dicted among non-blacks [Volume Rate/Area] in Serum or Plasma by Creatinine-based formula (MDRD) >6 0 [facility] Glomerular filtration rate/1.73 sq M pre dicted among blacks [Volume Rate/Area] in Serum or Plasma by Creatinine-based formula (MDRD) >60 [facility] ID Date Data Source [id number] 12/04/2020 01:00:28 AM EDT [facility] Name Value Range Interpretation Code Description Data Ellen rce(s) Supporting Document(s) Magnesium [Mass/volume] in Serum or Plasma 2.1 mg/dL 1.6-2.6 [facility] ID Date Data Source [id number] 12/04/2020 01:00:28 AM [facility] Name Value Range Interpretation Code Description Data Ellen rce(s) Supporting Document(s) Phosphate [Mass/volume] in Serum or Plasma 3.2 mg/dL 2.5-4.5 [facility] ID Date Data Source [id number] 12/03/2020 06:02:00 PM EDT [facility] Name Value Range Interpretation Code Description Data Ellen rce(s) Supporting Document(s) Albumin [Mass/volume] in Serum or Plasma by Bromocresol green (BCG) dye binding method 4.3 g/dL 3.5-5.2 [facility] Bilirubin.total [Mass/volume] in Serum or Plasma 1.0 mg/dL <1.2 [facility] Calcium [Mass/volume] in Serum or Plasma 9.2 mg/dL 8.6-10.0 [facility] Chloride [Moles/volume] in Serum or Plasma 100 mmol/L 98-107 [facility] Creatinine [Mass/volume] in Serum or Plasma 0.70 mg/dL 0.70-1.20 [facility] [facility] Glucose [Mass/volume] in Serum or Plasma 87 mg/dL 70-140 [facility] Alkaline phosphatase [Enzymatic activity/volume] in Serum or Plasma 63 U/L 40-129 [facility] Potassium [Moles/volume] in Serum or Plasma 4.2 mmol/L 3.4-5.1 [facility] Protein [Mass/volume] in Serum or Plasma 6.1 g/dL 6.4-8.3 L [facility] Sodium [Moles/volume] in Serum or Plasma 137 mmol/L 136-145 [facility] Aspartate aminotransferase [Enzymatic activity/volume] in Serum or Plasma 57 U/L <40 H [facility] Urea nitrogen [Mass/volume] in Serum or Plasma 10 mg/dL 6-20 [facility] Osmolality of Serum or Plasma by calculation 283 mosm/kg 275-300 [facility] Creatinine/Urea nitrogen [Mass Ratio] in Serum or Plasma 14 [facility] Bicarbonate [Moles/volume] in Serum 23 mmol/L 22-29 [facility] Alanine aminotransferase [Enzymatic activity/volume] in Seru m or Plasma 35 U/L <41 [facility] Anion gap 3 in Serum or Plasma 14 mmol/L 8-15 [facility] Glomerular filtration rate/1.73 sq M pre dicted among non-blacks [Volume Rate/Area] in Serum or Plasma by Creatinine-based formula (MDRD) >6 0 [facility] Glomerular filtration rate/1.73 sq M pre dicted among blacks [Volume Rate/Area] in Serum or Plasma by Creatinine-based formula (MDRD) >60 [facility] ID Date Data Source [id number] 12/03/2020 12:26:22 PM EDT [facility] Name Value Range Interpretation Code Description Data Ellen rce(s) Supporting Document(s) ED Provider Note [facility] XLBUZq6dYuSTWvZv06/QERztXARvm8HvFKzlHOx3RXahMCArE5YkKUQ1eC4xUMQ8PMcJTeZrJpYdBYI7 lbm [file] iHEw0qSREs4X7D41Vy7BQ+pediatric np/d28GUVCu7AOvfoYCgygO3ADh42nrFThRUcFLhqJyKoiIIwsXsNIAxN [file] FTYhKFXsUZIhTFQXGWahWL8HLV8mwkI6UA6BwUObDAGdUTGhnRAwQGf6N23oeLLyILkyTZ8RHEQ+Claudia+ Tm4LEUXcKEIcDEXfMpGdGLPWVtSpW9BvA8SBy7JjR3QnCH52gZaxwiPpFDeaSN2MUE0vDSRlECJAPQ3M zDFjhX0vunJ6UXReTVFGBxFcE90fiUWpBJOwLCJ9YK CrLd7VEPGcC1XgepMnaQcedpGwVVHmNLTYVS4TJNxnmwWmgMXatOxkFE72oGglTF5FWr1WDgRpTW7zju 6MqHZeZu2CKTV4IV9VLUHoCURcTTGbIGE7BHOyQaJaGEykXJXsYRRsMUM5JHNhVEYsML2LSoGvOFLkFV AkXvwcEXFgIQWbab0BXZTgERV0IEp9RKFgZLChHIUf VJmjFYLwFTNhVBN8OBUwLMQzRD9LBoZnDSYqPLRkNhGmOEVaBORnov4JZCXjJNUtMwE1TJUmDUKuYXXg SPsuEINgTKZ8HrYcOHMtDSOzAB8XGtLrJGDnGEF4IMojZPWeHMQqjl9YVRTqRKLoSOs4XUOqTPPgKRLq IPewYILyZYT4AUX4DDJeOUUaNQ1OAmLpAMDgRGJnPS boHPHgDZRzmq8TXEUhWPUwKwMhUVFgXSCcXVPeVAxvESEqHZD2HUO4WIHwEJArWK0LYlRiVDVyJXWvTU YeLJVcJGRlmo1OMMVvNBGgUzE0TUEhQDIcFIWdVFviTMWiQKL2RErgYJJnAVYkET9AQlKsILKuHyD8Gx LkPKQpUOIskf0ZVJJeYIZoZDN5JuXmYNLxXIPbKJky RGZsRXS1GYFxRFWdKEPwYY8TRsNxSLGtMcFmQFPvEPEtGJMyzw6CXGWiXYCfDmu4DuWhNICzPUJcCBkn XRYwXND2PSC0SQZdJXZsQG6FSnSuYEWrGwm3ZKKwNQUjEIKmig1ACWXzFAFbKSs2TEGpAIAhTUBxGIup VDMyAMSaLTm0SUQsWZQsLG2PJfJcYTAgOyYtBHAtAQ LdWAFykz7XJEOjRTHqVaE9RZHmICLjWQPvTZtpGMBwXJSwZoGlWCJuNBBsIR4UGvIkXBTqFnP9NsKaKY DuOUXqzi8LUBXqUFUsCjX1GlDwQTHvUTOwWYllJSQqKMTvOEx6EWKxFHKbQL3TZmAvDHPkOzZ7YJSbYI ZeXWKgph1WARAbWNHyQBl5MzNcTFJaFLRvEQokBREv GCS3IYLjMOEbRGOzYB8XTrSvOPAdAlSkCkSkRKWkLDRlrz6YBQZmMDA4PmC1CdNkKHLoGKDaZOjbUHMq EVD4TNy4DNGnTHHxPA8QPvAwAVSqSCroQKvsLRIcMUChgn6LZLArLUS5TjCeAnHdUIGoJCOoTYrtHBFs SSG0VLmkQMHvCNUxLL1UFkMtTQHzTMl0BzcpMJWfBZ Vxnh9DVSIoNXO0TTGsLRTzDENkLIHfRRyqWZFtNUG9SullEERaJRViXG8XBjEgLOViXUn8OzTnPSCoFB Fmbg0ZBCBcMQN8QLpzRqBqBOKqVROaORmtFVNdQOUuFQN1TRMoPJTgOK1CDsBvPQRhSZB8MNJiUBWtPG Rxaw6CGKJbMDE6GeN3QZMvZLUuCAMdQMljQDUiYETu SDCsFBJvQYUrDC0QDxIaJKKxHRFuBBEzTDUdBEKcyd7CASSmSPT3BaQ3FQJdDJGkNNGiAGkoVEFcFQLt Erg3WBZlRZBzDY0MXdZjRCByBPT7STYdJAPmKMSrsq8IYIAzPOV6PzIdZLXfJIOpZLMuLFccHXRfPNAg TwVdJTUoKLOuTE8MNvJeTELhXOSzZMNnKDHuTOGdgk 4WPMXpZZX8PqD6UkIpELSiUAPjKJpdGXDtVHIaQhV1MMGxSDCjCJ7VCbYfHEAzNPE4ROKaBDFbXINlio 5WbZLodFilnc0PFGqSGd5NrResCSIcYDmuEx5ayCP7KFRwEGHRQc6YkiPwBIKdFAXBWZvsHZVzYNX5HA B8UShuEpOwUtppErPvUXkvCwajDXU2NDU9HjPfEsN0 EyRsPZydBZS7EgB6NWOjDdYdEjZcFQEyKAqiLTynTUQ+JM8tXCk+Rk3Lb7EcdpM1ylMhSJs3VNW5Mj6S QQWUD8IMTt== ID Date Data Source [id number] 12/03/2020 12:10:15 PM EDT [facility] Name Value Range Interpretation Code Description Data Ellen rce(s) Supporting Document(s) ED Provider Note [facility] GXWTTw7jKvVFXtTx09/XEGxaQCDou3NgRKfxTVj1DAlbMCSiB6FtPPI0jF9oTDA6TBiCBiMvShBjWQZ2 lbm [file] FnNRvjGW4XZHS+Claudia+Or9BWCJcNNRbKCWdVqTfLZBW UgBuM3OyT2JEj2CeO9KxRC68wNzedlLmJDgdQI2LZW8uYRJsIMDAWF7VdZDldK1cvjD9MjYeKBCOYpOw S38vnFXuLZCzGODlBLUtBt3WZOPzF4BgsiWovUvudnSuMYZaWHTGMR0NGXmoolFnlACreZwiKO61gOwf IQ4KUk9EVqPwNV4gbb8YlWKxQr3EMCG5WC8EJFDbBD BuDKExUBJ3FKMeTaWhCAhxYXSeEKGoYED6MDFpAKTdSD8NUbZaMUNtXoF8KnDbEREmVRSptw6BXRCcYI E8VqF6ZhZgCQVdLMHkGCphXYQyNLApCQI8XWDeDTXzNK0JLmLwDIMxHVJ4YcRdGUXpFASefj0JRSGfUV SeWry6SOOdFYTnBCMvNRzpXBSsVFZ2NTf0STTeVEMk IX1NKrWkXGQfHCC3MSDfQEXpUHWxjy8JIUUbAKSuDCD3MQNwVGWyIPToRTlsPTWvIEI9SlQnAOPvSTOh QC2CGmIfZEDtHVDvBDioYREuJNZjnw4CXSCxDQDdOrJ3YIXrXCBrSOSxIMacBQSeVMX7VBB0VHSyBNRc RW1NVtHoCECgRDH4OIGyZHKqMIVaox4YBEQnTPLfZB z2BrDeLRLpJUScEPulRLQmFPHdXInoWUWqJEUlPE2HFaOwXTXaPbT5FVVtQVJuSAQpci0WFKGmPUYgEw G6CPAyEZWfCBIsLJjdEGKvPSH7WwR9MYFjQQObLL7WXwUbYRYeBzE3TCAzKWQkHCXtir4YZIVyTPPdTW SqIuYdQNMcLPAaHEahTIGhXKJ0PGHyAKHkIIKyMM4O VnCrZYJvKyQ0OUPzVWBdGLNpll2OHTTqLKZpElf3HvYeJFXmAESySHefNRJzXCX2Raz6GQMkDRZuGR7E HdMtQKLlWcB9JOFbMGHgSZSzxj4FAAWuWBKwNHA6TWXbMCNjILOzKRcmXOClBRU0Act6HJUpUTUcVL8Q LbYaVJQsDSOpFxVuVBCgGTVirx2TPRVsZWO6FjL0RD CbMWDxJDZhTIqzILPpDLQ1RWUlUOKqHEHkHY6RWkSuOCUhKDN6ZCIuUGNwJLYidv8JHFQuXZS5DwupHf YmESAfBNTyKJeuNFSoMAJ4ARZlYVWmPTWcNR6JBuAkKQZtVSz6CDOkXRTeHNIegl4AGEXiKTZ8LST5CV RpPPDpEJZhQDtmIXJgNII5TbToDGXrBBJmOZ9WVtAw RZBmNCLdUgFuFGUkDXWcne2WUNVqYNN9PBQkYhAgYUZxJLTxCFgkFAHeNQEcRfTiBKBoMLYsJN1VPnRr CVVuNyQbDGKgMBQgCYFdng1KSJYwCXN3LtNqSFRlGPHaNHPfNFpbDWIsRZLeAsTuNRMqDKZqSM3OSfGz ZTQfLfZ4PwXjADWuOVQevr7RFMUpJXR8OkPtSPWvCH KmQKXpDYkuHUXzLVAbKYZwHGFsMYNxUV4KAyJgKSWyYrPlNQGtXSZaUVXuly9VSEMwFBP5ZPXcMULmNN YgCLRpFDplZELbMYB0PbItYYTrIMScHA0EElHlSPUlDqI6EWJfJQUhRDRcyh8LUSVgTZF9FULyCMLfXD JsIBSwFFyoZKFrENS1MYF8NMKoBYPuJN8SWuFpYMBp Vab0LBGmPDQgRWTwkd7XSNYqSBH6BxY6RjNhODNsUWRzLOidTWAbLAD9PZY2RJAnZRTkCT2NPoUgYVUa Pbd5UbvbLHKpNXUyzr3GPNGcSUP1RGF9BjCjXJPfTKVlQXzgHIQiBYN3EaAkFGOzYQDcLF3JViKiSXYn Dng6ANpeTALkZAOgnm6HEMOeABZ0FMW6KqFsGUZbIR BlJUf6bbQkyFYyGLk4VH4DM7OopnHzBlXNEc7Tb030PHIzJKOtGt6UZ4lpOs3zECQzSMYPWu4IFLo2HF RtEmU6JOFtQGyiM2SiGJfaFKgnSbEqADN6WDL5MTM+UAg3VkRqZNI2GCKyM4G4NrC9Q4J9D3Y8BUTjWt GlUHc3Eb2rQWUQQx7+YAtbhFAwjWvyLAHCEzG7BIL8UZjhMALWOy6E ID Date Data Source [id number] 12/03/2020 01:05:43 AM EDT [facility] Name Value Range Interpretation Code Description Data Ellen rce(s) Supporting Document(s) Bicarbonate [Moles/volume] in Serum 24 mmol/L 22-29 [facility] Chloride [Moles/volume] in Serum or Plasma 101 mmol/L 98-107 [facility] Creatinine [Mass/volume] in Serum or Plasma 0.62 mg/dL 0.70-1.20 L [facility] Glucose [Mass/volume] in Serum or Plasma 120 mg/dL 70-140 [facility] Potassium [Moles/volume] in Serum or Plasma 4.2 mmol/L 3.4-5.1 [facility] Sodium [Moles/volume] in Serum or Plasma 134 mmol/L 136-145 L [facility] Urea nitrogen [Mass/volume] in Serum or Plasma 5 mg/dL 6-20 L [facility] Anion gap 3 in Serum or Plasma 8 mmol/L 8-15 [facility] Osmolality of Serum or Plasma by calculation 276 mosm/kg 275-300 [facility] Creatinine/Urea nitrogen [Mass Ratio] in Serum or Plasma 8 [facility] Calcium [Mass/volume] in Serum or Plasma 9.1 mg/dL 8.6-10.0 [facility] Glomerular filtration rate/1.73 sq M pre dicted among non-blacks [Volume Rate/Area] in Serum or Plasma by Creatinine-based formula (MDRD) >6 0 [facility] Glomerular filtration rate/1.73 sq M pre dicted among blacks [Volume Rate/Area] in Serum or Plasma by Creatinine-based formula (MDRD) >60 [facility] ID Date Data Source [id number] 12/03/2020 01:05:43 AM [facility] Name Value Range Interpretation Code Description Data Ellen rce(s) Supporting Document(s) Magnesium [Mass/volume] in Serum or Plasma 1.9 mg/dL 1.6-2.6 [facility] ID Date Data Source [id number] 12/03/2020 01:05:43 AM [facility] Name Value Range Interpretation Code Description Data Ellen rce(s) Supporting Document(s) Phosphate [Mass/volume] in Serum or Plasma 3.1 mg/dL 2.5-4.5 [facility] ID Date Data Source [id number] 12/03/2020 02:05:08 AM [facility] Value Range Interpretation Code Description Data Ellen rce(s) Supporting Document(s) Leukocytes [#/volume] in Blood by Automated count 2.1 10*3/uL 4-10 L [facility] Erythrocytes [#/volume] in Blood by Automated count 4.35 10*6/uL 4.6- 6.1 L [facility] Hemoglobin [Mass/volume] in Blood 12.8 g/dL 13.5-18 L [facility] Hematocrit [Volume Fraction] of Blood by Automated count 38.8 % 4 1-53 L [facility] Erythrocyte mean corpuscular volume [Entitic volume] by Auto mated count 89.1 fL 80-96 [facility] Erythrocyte mean corpuscular hemoglobin [Entitic mass] by Automated count 29.4 pg 27-33 [facility] Erythrocyte mean corpuscular hemoglobin concentration [Mass/volume] by Automated count 33.0 g/dL 32.0-36.0 [facility] E[facility]th[facility] distribution width [Ratio] by Automated count 13.2 % 11.5-14.5 [facility] Platelets [#/volume] in Blood by Automated count 199 10*3/uL 150-400 [facility] Differential cell count method - Blood [facility] Neutrophils/100 leukocytes in Blood by Automated count 90 % [facility] Lymphocytes/100 leukocytes in Blood by Automated count 7 % [facility] Monocytes/100 leukocytes in Blood by Automated count 3 % [facility] Neutrophils [#/volume] in Blood by Automated count 1.89 10*3/uL 1.8-7 .0 [facility] Lymphocytes [#/volume] in Blood by Automated count 0.15 10*3/uL 1.2-4 .0 L [facility] Monocytes [#/volume] in Blood by Automated count 0.06 10*3/uL 0-0.8 [facility] ID Date Data Source [id number] 12/02/2020 05:33:53 PM [facility] RENAL OR AORTA COMPLETE [id number] RE SULTInterpreted by:Chen Preciado, DOCLINICAL HISTORY: Left sided flank pain and pain [...] rce(s) Supporting Document(s) ID Date Data Source [id number] 12/02/2020 12:20:43 PM EDT [facility] Name Value Range Interpretation Code Description Data [facility] rce(s) Supporting Document(s) ED Provider Note [facility] CUIUYs6iWoTNLuIi06/UAZvbYEVwa8ZtVUkaZTm6AAvdMMCwG6UkLTK7nO1pCIG1MXmIObOzBiPuGER1 lbm [file] qBTpDEllCG7ZTUL+Claudia+Uj5PDJKzMKJlICFrWeAxDD HBMkXyU5TsP3YIb6SgJ8EqUO00fEsmmiZwWGajVZ5DZA5qKEPlWILBAN2WcSHdaX9mzgJ9IAHrWDVWVe WqX31thXYjOXThVBUuGCJlXz4UYVNdZ0HwdeQeeVupjhAwAIYvXRFUTO0ELPwqimGeuRRitXqiXM19zX bfCB7UKy5YNoPzYW5cvq0SjDCtQt3SMPS7Cb2ICEId LFMpVRLoGMM4HBAgYdIdMZdgPIXqABZiTXE9HZVvECYcPP5UMpEoLAGvNDM8IaYsBWTlZLSmdm0CEIWm MMV3XsM0KNFyRNTmZGWwCNlqZOGdAGLaPHI7VPKkUQTlIQ6YUyEtEVBcCCJ2LtssKDEkTBPhfz9NHOJx TAAiBcOiONMcLNFpTQUuVTgpRGTjFKE0MJyqRNZvGY ZhKQ2FYxKgDLUbINqkWoDtABFoFDFyck8SXONxNVLtHKV4WLBlOQMzZWFsJCbfWGJwKSIdGLxyQAStWP SsXJ2DFhGlMHSfVYB2WTvaBEEhSZVbmq1UNVPuNFTiZmJ5ZGGbEMIyCKQaWVldPXEtEWN5Cno5MQCaTN CqWJ2EIbQdOZLgUMF7HGDeNOZyWMZmoy8KPTTdJGTp SQClQNSrTZIkXXAdNMxvTAIlIZY7DLLiFBOkFPToSF6EDoGxGLZhZzY2NUFySXDxKWRoej3ZHYBqLYFz EBv6RhBoMDVaWCHvCBqzLTYyFZJ7TMftEGGeRNOyJR5SKsOyGBVjHsG8ACvgAYGnIFUjgm4HTJIuXZXe BuO0ObIjBWLcWCGcPRfbFSCoOOC6XCc3QCAbZAMgLN 6VIqGdPKRhVec7EAewKPWbINUeqq5VYGYgLQFzCrB4DoMrENNmFUHsWMkwCQTwHWO2NOS7ZTWyQNStQJ 7SZfTvJAQoPmp4QCoyHKOxAVGovf9QRTYqZPKjIQb2LFAyUMIuQKPnPLryKRPfENS2HYt7NEMkQZRuVY 7XMbCpOVKkCuGiBatsKHUvQSJrdi1HNLBqLIStJUXj XXKiNPWfVXBmUTidMBJpOISaWZS1QFAlIQOlGS1HIyPmTLHfFJU6ZMsgASNmEXXxog5ELAPzKUU5EgX3 YfAbCOMyNRApRGqpBAFtRXUuVReuOFNkDJOxMZ6QTuUiJWAyEIZ5JpGvTWVlVXYhwv0UFLWbJVG8Txw5 SPWbRRZyJACcYXlqZSIpIQLqUHUfOLKnFULfFY1VDs BmKWEaTCPdQVRfMUYoTADbiz6BHQJpYSY3TYA5FJVhFQFeJQMzSNhiITHvWWY2KZViBWVfATReQV8OOg BaHYGpKHGgVbJeEOJjOOXryi7MNBClRTE3KXUzHMVcTFSfMJRhXKbpCUEcPOK7EMU0FXFhNLLrSA2KMz OlZVJcCAt3ZHMeVCYuUFPvkb1IXVEyXDS5XmFwGhUz MIWxGDWqFHdoLZFgOOJ9IzAwEUAkHQZdNX6MNcVbZQLdRVe5QcZmEKCoFPDsfu2TJIUmFAT5JAEoFeOr DCOwIBBvDOnmIQYvFJW4FfF6CSEoJSWzXV2AXkSiZZAjDWocSBDcOJOvUPWbqf9PKXCwUSK3IXH1BQAa FDZmDGPlZYosWSFjXQR4JaRaHMRiMUMpNN6DTbQxMU WpIAc9XHPnRLQzAZMvgn6RTMNaQYY3CQW7TmTvNPShWLSqVAdsFNMuIXA9WbP0YDGnWYTaFE8UUmDxJA FrNJr1WxCrKTDlLYNfvm9UcBHffPrxyi9YPGvGBq7OsZnvFRG7EZcrFo8ulIB4MnTdIRDTKl0CqqYgIM PhFCCSVYfeOHAbCVH9UjBiLqW9BJtjXYW6YJDhTdK5 ZYM2BuZnFmhxCeOcQyJ3WNxwKaByJXbvXZGjJPN2NcSsNlpaVdKuEVUhVQB9JEV+AA5xNRv+Bt9Nm5Qd vfV4eeUkVOq8GVT6Pi7XQJABK1WTXb== ID Date Data Source [id number] 12/02/2020 12:01:37 PM EDT [facility] Name Value Range Interpretation Code Description Data Ellen rce(s) Supporting Document(s) Color of Urine [facility] Clarity of Urine [facility] Specific gravity of Urine by Refractometry automated 1.010 1.003 -1.030 [facility] pH of Urine by Automated test strip 5.0 5.0-8.0 [facility] Protein [Mass/volume] in Urine by Automated test strip Neg [facility] Glucose [Mass/volume] in Urine by Automated test strip Neg [facility] Ketones [Mass/volume] in Urine by Automated test strip 20 mg/dL Neg [facility] Bilirubin.total [Presence] in Urine by Automated test strip Negative [facility] Hemoglobin [Presence] in Urine by Automated test strip Neg [facility] Leukocyte esterase [Presence] in Urine by Automated test strip Negative [facility] Nitrite [Presence] in Urine by Automated test strip Negati ve [facility] Leukocytes [#/area] in Urine sediment by Automated count 0 /HPF 0 -5 [facility] Erythrocytes [#/area] in Urine sediment by Automated count 0 /HPF 0-3 [facility] Service comment [facility] ID Date Data Source [id number] 12/02/2020 11:49:36 AM EDT [facility] Name Value Range Interpretation Code Description Data Ellen rce(s) Supporting Document(s) Leukocytes [#/volume] in Blood by Automated count 5.4 10*3/uL 4-10 [facility] Erythrocytes [#/volume] in Blood by Automated count 4.26 10*6/uL 4.6- 6.1 L [facility] Hemoglobin [Mass/volume] in Blood 12.7 g/dL 13.5-18 L [facility] Hematocrit [Volume Fraction] of Blood by Automated count 38.1 % 4 1-53 L [facility] Erythrocyte mean corpuscular volume [Entitic volume] by Auto mated count 89.4 fL 80-96 [facility] Erythrocyte mean corpuscular hemoglobin [Entitic mass] by Automated count 29.8 pg 27-33 [facility] Erythrocyte mean corpuscular hemoglobin concentration [Mass/volume] by Automated count 33.4 g/dL 32.0-36.0 [facility] Erythrocyte distribution width [Ratio] by Automated count 12.9 % 11.5-14.5 [facility] Platelets [#/volume] in Blood by Automated count 213 10*3/uL 150-400 [facility] Differential cell count method - Blood [facility] Neutrophils/100 leukocytes in Blood by Automated count 75 % [facility] Lymphocytes/100 leukocytes in Blood by Automated count 13 % [facility] Monocytes/100 leukocytes in Blood by Automated count 9 % [facility] Eosinophils/100 leukocytes in Blood by Automated count 3 % [facility] Basophils/100 leukocytes in Blood by Automated count 0 % [facility] Neutrophils [#/volume] in Blood by Automated count 4.06 10*3/uL 1.8-7 .0 [facility] Lymphocytes [#/volume] in Blood by Automated count 0.69 10*3/uL 1.2-4 .0 L [facility] Monocytes [#/volume] in Blood by Automated count 0.48 10*3/uL 0-0.8 [facility] Eosinophils [#/volume] in Blood by Automated count 0.17 10*3/uL 0-0.5 [facility] Basophils [#/volume] in Blood by Automated count 0.02 10*3/uL 0-0.2 [facility] Nucleated erythrocytes/100 leukocytes [Ratio] in Blood by Automated count 0 /100{WBCs} 0-0 [facility] ID Date Data Source [id number] 12/02/2020 12:11:19 PM EDT [facility] Name Value Range Interpretation Code Description Data Ellen rce(s) Supporting Document(s) Albumin [Mass/volume] in Serum or Plasma by Bromocresol green (BCG) dye binding method 3.9 g/dL 3.5-5.2 [facility] Bilirubin.total [Mass/volume] in Serum or Plasma 1.1 mg/dL <1.2 [facility] Calcium [Mass/volume] in Serum or Plasma 8.6 mg/dL 8.6-10.0 [facility] Chloride [Moles/volume] in Serum or Plasma 104 mmol/L 98-107 [facility] Creatinine [Mass/volume] in Serum or Plasma 0.70 mg/dL 0.70-1.20 [facility] Glucose [Mass/volume] in Serum or Plasma 112 mg/dL 70-140 [facility] Alkaline phosphatase [Enzymatic activity/volume] in Serum or Plasma 64 U/L 40-129 [facility] Potassium [Moles/volume] in Serum or Plasma 3.9 mmol/L 3.4-5.1 [facility] Protein [Mass/volume] in Serum or Plasma 6.0 g/dL 6.4-8.3 L [facility] Sodium [Moles/volume] in Serum or Plasma 137 mmol/L 136-145 [facility] Aspartate aminotransferase [Enzymatic activity/volume] in Serum or Plasma 11 U/L <40 [facility] Urea nitrogen [Mass/volume] in Serum or Plasma 4 mg/dL 6-20 L [facility] Osmolality of Serum or Plasma by calculation 282 mosm/kg 275-300 [facility] Creatinine/Urea nitrogen [Mass Ratio] in Serum or Plasma 6 [facility] Bicarbonate [Moles/volume] in Serum 25 mmol/L 22-29 [facility] Alanine aminotransferase [Enzymatic activity/volume] in Seru m or Plasma 7 U/L <41 [facility] Anion gap 3 in Serum or Plasma 8 mmol/L 8-15 [facility] Glomerular filtration rate/1.73 sq M pre dicted among non-blacks [Volume Rate/Area] in Serum or Plasma by Creatinine-based formula (MDRD) >6 0 [facility] Glomerular filtration rate/1.73 sq M pre dicted among blacks [Volume Rate/Area] in Serum or Plasma by Creatinine-based formula (MDRD) >60 [facility] ID Date Data Source [id number] 12/02/2020 02:02:07 PM EDT [facility] Name Value Range Interpretation Code Description Data Ellen rce(s) Supporting Document(s) Cancer Ag 19-9 [Units/volume] in Serum or Plasma 121 U/mL <35 H [facility] ConfirmedThis test uses [place] CA 19-9 el ectrochemiluminescent immunoassay. Results obtained with different test methods or kits cannot be used interchangeably. CA 19-9 is useful in monitoring pancreatic, hepatobiliary, gastric, hepatocelllular, and colorectal cancer. CA 19-9 value regardless of level, should not be interpreted as absolute evidence of the presence or absence of malignant disease. ID Date Data Source [id number] 12/02/2020 04:09:24 AM [facility] Name Value Range Interpretation Code Description Data Ellen rce(s) Supporting Document(s) Phosphate [Mass/volume] in Serum or Plasma 2.3 mg/dL 2.5-4.5 [facility] ID Date Data Source [id number] 12/02/2020 04:48:02 AM [facility] Name Value Range Interpretation Code Description Data Ellen rce(s) Supporting Document(s) Leukocytes [#/volume] in Blood by Automated count 5.2 10*3/uL 4-10 [facility] Erythrocytes [#/volume] in Blood by Automated count 4.27 10*6/uL 4.6- 6.1 [facility] Hemoglobin [Mass/volume] in Blood 12.5 g/dL 13.5-18 L [facility] Hematocrit [Volume Fraction] of Blood by Automated count 38.1 % 4 1-53 [facility] Erythrocyte mean corpuscular volume [Entitic volume] by Auto mated count 89.1 fL 80-96 [facility] Erythrocyte mean corpuscular hemoglobin [Entitic mass] by Automated count 29.3 pg 27-33 [facility] Erythrocyte mean corpuscular hemoglobin concentration [Mass/volume] by Automated count 32.9 g/dL 32.0-36.0 [facility] distribution width [Ratio] by Automated count 12.8 % 11.5-14.5 [facility] Platelets [#/volume] in Blood by Automated count 201 10*3/uL 150-400 [facility] Differential cell count method - Blood [facility] Neutrophils/100 leukocytes in Blood by Automated count 67 % [facility] Lymphocytes/100 leukocytes in Blood by Automated count 20 % [facility] Monocytes/100 leukocytes in Blood by Automated count 8 % [facility] Eosinophils/100 leukocytes in Blood by Automated count 5 % [facility] Basophils/100 leukocytes in Blood by Automated count 0 % [facility] Neutrophils [#/volume] in Blood by Automated count 3.45 10*3/uL 1.8-7 .0 [facility] Lymphocytes [#/volume] in Blood by Automated count 1.06 10*3/uL 1.2-4 .0 [facility] Monocytes [#/volume] in Blood by Automated count 0.43 10*3/uL 0-0.8 [facility] Eosinophils [#/volume] in Blood by Automated count 0.25 10*3/uL 0-0.5 [facility] Basophils [#/volume] in Blood by Automated count 0.01 10*3/uL 0-0.2 [facility] Nucleated erythrocytes/100 leukocytes [Ratio] in Blood by Automated count 0 /100{WBCs} 0-0 [facility] ID Date Data Source [id number] 12/02/2020 04:55:04 AM EDT [facility] Name Value Range Interpretation Code Description Data Ellen rce(s) Supporting Document(s) Bicarbonate [Moles/volume] in Serum 21 mmol/L 22-29 [facility] Chloride [Moles/volume] in Serum or Plasma 100 mmol/L 98-107 [facility] Creatinine [Mass/volume] in Serum or Plasma 0.66 mg/dL 0.70-1.20 [facility] Glucose [Mass/volume] in Serum or Plasma 87 mg/dL 70-140 [facility] Potassium [Moles/volume] in Serum or Plasma 3.7 mmol/L 3.4-5.1 [facility] Hemolyzed Sodium [Moles/volume] in Serum or Plasma 134 mmol/L 136-145 [facility] Urea nitrogen [Mass/volume] in Serum or Plasma 6 mg/dL 6-20 [facility] Anion gap 3 in Serum or Plasma 12 mmol/L 8-15 [facility] Osmolality of Serum or Plasma by calculation 275 mosm/kg 275-300 [facility] Creatinine/Urea nitrogen [Mass Ratio] in Serum or Plasma 9 [facility] Calcium [Mass/volume] in Serum or Plasma 8.4 mg/dL 8.6-10.0 [facility] Glomerular filtration rate/1.73 sq M pre dicted among non-blacks [Volume Rate/Area] in Serum or Plasma by Creatinine-based formula (MDRD) >6 0 [facility] Glomerular filtration rate/1.73 sq M pre dicted among blacks [Volume Rate/Area] in Serum or Plasma by Creatinine-based formula (MDRD) >60 [facility] ID Date Data Source [id number] 12/01/2020 09:28:00 PM EDT [facility] [address] [place] [address] RESPIRATORY CARE REPORT ==== ---------NAME------- NUMBER SEX AGE ADMIT DISC. XRAY# F/C TYPEREID SHERRIE Gaviria [id number] M 35 11/23/20 11/24/20 [id number] E/R DATE OF : 1985 M/R# [id number] #: [id number] VT-20 LOCATION: EMERGENCY DEPT [facility] [id number] COMPLE TE:11/24/20 01:49 AJP [id number] PHYSICIAN: LEXUS VÁSQUEZ Name Value Range Interpretation Code Description Data Ellen rce(s) Supporting Document(s) ID Date Data Source [id number] 12/01/2020 04:59:09 PM EDT [facility] Name Value Range Interpretation Code Description Data Ellen rce(s) Supporting Document(s) Consultation [facility] [id number] lbm [file] gx/4I5XlyJtVr+myqbn63Xq8p50RsJAVuCAARv+VJodjOzEiwknqbCuc3VkhiDb6IdvyATwNm/OM/+[employer] [file] AgICAgICAgICAgICAgICAgICAgICAgICAgICAgICAgICAgICAgICAgICAgICAgDQogICAgICAgICAgIC AgICAgICAgICAgICAgICAgICAgICAgICAgICAgICAg ICAgICAgICAgICAgICAgICAgICAgICAgICAgICAgICAgICAgICAgICAgICAgICAgICAgICAgICAgDQog ICAgICAgICAgICAgICAgICAgICAgICAgICAgICAgICAgICAgICAgICAgICAgICAgICAgICAgICAgICAg ICAgICAgICAgICAgICAgICAgICAgICAgICAgICAgIC AgICAgICAgDQogICAgICAgICAgICAgICAgICAgICAgICAgICAgICAgICAgICAgICAgICAgICAgICAgIC AgICAgICAgICAgICAgICAgICAgICAgICAgICAgICAgICAgICAgICAgICAgICAgICAgDQogICAgICAgIC AgICAgICAgICAgICAgICAgICAgICAgICAgICAgICAg ICAgICAgICAgICAgICAgICAgICAgICAgICAgICAgICAgICAgICAgICAgICAgICAgICAgICAgICAgICAg DQogICAgICAgICAgICAgICAgICAgICAgICAgICAgICAgICAgICAgICAgICAgICAgICAgICAgICAgICAg ICAgICAgICAgICAgICAgICAgICAgICAgICAgICAgIC AgICAgICAgICAgDQogICAgICAgICAgICAgICAgICAgICAgICAgICAgICAgICAgICAgICAgICAgICAgIC AgICAgICAgICAgICAgICAgICAgICAgICAgICAgICAgICAgICAgICAgICAgICAgICAgICAgDQogICAgIC AgICAgICAgICAgICAgICAgICAgICAgICAgICAgICAg ICAgICAgICAgICAgICAgICAgICAgICAgICAgICAgICAgICAgICAgICAgICAgICAgICAgICAgICAgICAg ICAgDQogICAgICAgICAgICAgICAgICAgICAgICAgICAgICAgICAgICAgICAgICAgICAgICAgICAgICAg ICAgICAgICAgICAgICAgICAgICAgICAgICAgICAgIC AgICAgICAgICAgICAgDQogICAgICAgICAgICAgICAgICAgICAgICAgICAgICAgICAgICAgICAgICAgIC MnGQVwCWLaKOSoQUBgFDJmHNItDJPwXWLmKNSqCJWkDWOrLDAfNMKcVUOgCHDtAAZpGFUtPDIwSJc2A0 njUTAdVONtXA8uVEs1Pw4+OEuDNbYiBOM3bzRctJ9D MT7kn5QsDOrfNATjz8BePOf5RC5UOBLeFQcxVJ9WXJfyrn5UWGJdJRSzoFEFr4tkOhKcJIJ3EYXvOtyf TT8XQKFzT2yohrMpWKLrZPCMHCogITAFILotVFSXMSWsPLHtNgLmQnHwCXUnJLGxBPNKGSG2TNCtWjEk YDkgDX1Kq8MscTK7QRw+Ih4ALY9be4UtJVnpDaAwSR 2txj4QBFbKMsMjI6AnbnH9CHD6LKZiBm3PIPObTWYjtRPrQJMrLAFOZdDjJ9RhpH13CDMKYr3+DQplbm QeIciKEbR8ULIqe5NdHSs3FW0MIRLtIEk1eVVaY64ld0CczAZaHhlaTZkdWQKjKQZxnupzLKGfQRUqCH AwDM4gSCCbCOZ4DvCwWQVDCE5QBUQyEVUzdSFkHPZa MCIKHI0NFQprUXZ6FNFsntMsvHNcFJhfQT1JWFGoyuYoNvjxYJUBCXk+Pg8BOA9no4PnVIxjOCVvIT3h ks1KTWuFMhNzU9V9tZJhY2X0LHuhNa7ZGZYyOAGgNxNkJEUXXNnnNB8TOB6syzU3HE4DrYZvDGYyUMLx dPWkOMz9X24xuSRzLUndJR7ANEL+Claudia+Ld8LXVSzAH MmQSTnJwBhCTTRXcKvZ8YhF3GVu0ZvX8CtTF77gUhvadOdKTwnSN7WWK4aJEFhHABIIS8GpJHpfJ2evl VbHpTaHJTSJgPcU67ynXElXMRxNWR4MOJbGc6MNIHfR1MgmoJppCpginZxYVUtKIESUP7KASmftsOgfX JlfQilMD25vSvcDE3WSr0NXiRzOU9uik6NgUGeFj4H AAL0KA2BPFYrIWMiMKHySUL3DOPoKeBdYVhdYUKdPTQfKQT7XABsVPFrIA9ASzAgXDGbEgb3LxoyNZVq CWBvnd3NUVZaUWZ4PYSiOIKoIZUxJLLnZTuxGZFpDMObCAX0WSPfUVKnUZ8YRlZtNUFaUOU9ZXGmQNEf UJZoxd0PGRNlKKQgYbp2IIDuAQWiVDBqLCxgSRHwUN F8ZYY5JPDxEBNpCE1CSnXeTIBqGIgcANGaGRAeQLDcnu0URUDtHUDoLLK6MrShYMNdLJPgJIbqIEKfCG R0VWnhLRIvYQHhTO9STrDgDNQgCNBiVcOaTZSaHEYncz6VXOGoRFOtJqM3HnAcITUjXBMxSDlxKJKgCO I1QrI8UHOiAACjNY5RPdRnEEHwFOJ1MdMoPUTiUSWc bs9CAWGkJDHhURf5EdAgITLuWHXjHQorTSWwEXB2ULt4IUEmIMAeYC8NTkTfPPOlPnP3XNGjFFBlRKZc ps0PKHRzNXAzUjPhCPKfJHTdDCLpBCtxBDFoXVFzZNcdTLDeAEFwPL6EJzKdVYXeJnFkAazuDODcAQXc ye8GMOGoBIAoDuM2CLUmXEGrXDYxBGqwUUGwADH7CG F5DURxYINxIW8ADaXcSNYwBrL0JESfBYOvVLUxve3TTLVpTSXsYXb4HSSdSTOgZZAwEEhoHUUtHTX1Fd Q1KUPdTQIfBW6BBpKcPPAnMqC9LPGqYZMyJZRfpi7STLFnOQWpPnWnNIJqMPWvYAYoBAurCCMuCUE9VJ R8ZDEwWTHlHC8QGyNlEADeQdk1UCOaUZHkAHPtzd2K PTCeWWCfWFF3IKZvYTYuQXTsTRfyHACkVVQ0JkojZDRwPPBdVO3CQmUqOGEyHio5PmXkVSZsUQKlpv1Q GAUmGFLnSBU5GHOnDIVeFSXuXWieHTDuJDA6PUA0YFYtOLHfRZ1BVcYoIJMrKjk9QHRwEPDpYGPprr0E INCyYPX1HMQ6VQCvFWBtZAIoEHqbSKAeYJTcBmC0CD LuPIIfKQ8GHkQqUQUcLNM9FdvrVFLxQMClsr8HLTUaZOD0NFa1JlCwHFNnNARtOPl7ktVnxORuFIw0IA 8TJ6SrrcQhEKXDXf3Is135UAY7MMOlXy1RK5aeCf4eFSIkPAQOAm1GQCw5PJh0MqAxGXPiMHU8I7RzA4 O6JGZmYsI9OIM4JRx7AKG+IDwxODhmNmQwMWFlMzQ3 TIU8QYm8BtDxIZHfMDL0LnxmDU3dEUFUZc1+TEmkcNJjgWuaZDILZmAhEGRtRObiVZSOFl8S ID Date Data Source [id number] 12/01/2020 03:38:04 PM EDT [facility] Name Value Range Interpretation Code Description Data Ellen rce(s) Supporting Document(s) Consultation [facility] UCEOBi1dLgIABdEv31/VBVcdQSKaw0OaEApqQKt8OVyuPREnO6BoUIY6hI4hVSC9VXjOWoWzLoEfCAL6 lbm [file] AgICAgICAgICAgICAgICAgICAgICAgICAgICAgICAgICAgICAgICAgICAgICAgICAgICAgICAgICAgIC AgDQogICAgICAgICAgICAgICAgICAgICAgICAgICAg ICAgICAgICAgICAgICAgICAgICAgICAgICAgICAgICAgICAgICAgICAgICAgICAgICAgICAgICAgICAg ICAgICAgICAgICAgDQogICAgICAgICAgICAgICAgICAgICAgICAgICAgICAgICAgICAgICAgICAgICAg ICAgICAgICAgICAgICAgICAgICAgICAgICAgICAgIC AgICAgICAgICAgICAgICAgICAgICAgDQogICAgICAgICAgICAgICAgICAgICAgICAgICAgICAgICAgIC AgICAgICAgICAgICAgICAgICAgICAgICAgICAgICAgICAgICAgICAgICAgICAgICAgICAgICAgICAgIC AgICAgDQogICAgICAgICAgICAgICAgICAgICAgICAg ICAgICAgICAgICAgICAgICAgICAgICAgICAgICAgICAgICAgICAgICAgICAgICAgICAgICAgICAgICAg ICAgICAgICAgICAgICAgDQogICAgICAgICAgICAgICAgICAgICAgICAgICAgICAgICAgICAgICAgICAg ICAgICAgICAgICAgICAgICAgICAgICAgICAgICAgIC AgICAgICAgICAgICAgICAgICAgICAgICAgDQogICAgICAgICAgICAgICAgICAgICAgICAgICAgICAgIC AgICAgICAgICAgICAgICAgICAgICAgICAgICAgICAgICAgICAgICAgICAgICAgICAgICAgICAgICAgIC AgICAgICAgDQogICAgICAgICAgICAgICAgICAgICAg ICAgICAgICAgICAgICAgICAgICAgICAgICAgICAgICAgICAgICAgICAgICAgICAgICAgICAgICAgICAg ICAgICAgICAgICAgICAgICAgDQogICAgICAgICAgICAgICAgICAgICAgICAgICAgICAgICAgICAgICAg ICAgICAgICAgICAgICAgICAgICAgICAgICAgICAgIC AgICAgICAgICAgICAgICAgICAgICAgICAgICAgDQogICAgICAgICAgICAgICAgICAgICAgICAgICAgIC AgICAgICAgICAgICAgICAgICAgICAgICAgICAgICAgICAgICAgICAgICAgICAgICAgICAgICAgICAgIC YfAJRvQCEnOPSvROn6K4gaIXJxADKhUW7mAOx5Hf9+ NSaDVcExPYP0luKlrF8MUD0gu6QrJNweOZCuc2LlRJv4YI5WWOHdCVxfQT7IQFbcqn9OUEGzEXCypLLV c8loTyBrFHW0CZUnNsthCN8GVBPrC7cvmdYvTMNnYMWZXQnkJJUIFSzoNXNADYHuGDKyQzQkIeTuKWSo PCVoAMMRHY5OBbHbA3IzzA34QKMXNk5+DQplbmRvYm gZLdL0IXVsl3VzMEz9US8GHFEhIuzpt7MiHiAdIZBPFBgtFE6RVLV4IEN6AQBoHl1VNKUrP394vaWrPQ 1STa3QDoSfTN5qfh9OJbDzDNQkYxbBKev6QQkxHC8FyVQdQZdEx05onTx2veOckUINsUA4lEXvPtVPcW vzxtkyBBTaHATsHHTbJQ1pIIYeZYQgDoN0VPDZAW3B ESDiVEAnlDFoBJIuLEKNQE8DTDohKPG9AHVidpUpaBEiHBinDE2ZGSCgluJfWsRgWGLKAFs+Wv7BRF7i u2MlLNhiXbBdLV6bhk3BQOnJEbJoS1R8zPSaU1J1IVrqNk7BRLJwUIJjIlQgMQNVEVxwON7JFY4jlyE1 AR4ObALsPRIfICHnsIAkCDh6O84zoIAiKHtsVL2YNY A+Claudia+Vp3FWFPjNPIcRHDrHuSxOYZGJtKeB0GrO4HMb7VbP5XpZM60bLiggoPdQEzcSF0FVJ7oNJLxSZ VLIL3NlQPxvT4segNsEAIzTSZDAfLnJ82xbCCuQHDvDAP9JKAwDl9SXCZiP7TqqzDmsVrnteRvNSGbZD NCRF3TMNmjwkCjdRQzwTwaOL32lFatGG2ZXc0GByLv MG3moi0MoQXiAr2WDJHhZT5QAPCjLDNoWLKiMUW2OTApAcGdOOpwNLMcFXUdYBT8CFTqKGEeJF2WVkVv KLReVkH8KMLfTWDhRVMwtu3BGFPsJKQbWAIpQCYsYGIsTIJwXDtbYGCeBELiFGS9AXPbAEYuGF4ESaEj UXErNPH2TQAaYCZuDDLqwd1GUKDdTZOeDuh0VmReFY WiXKQpKYppTPPnIDQ7KRb1MVFxFQMcDF6RQgLpVFOaEUUcGOzeRPSmERRwfr6LEKVbKZQhMJU8FYDpCC QjLSYdPPmiRBNqAKJ8EwFdIQKgMBJkYK9IFhGwTOLwHHP6ThDpYYNbMLUsuj8GTQBoBJHbQghgRsCqDC XdTNAhVHgkWVHtQGP0NhWuPXBcQKVjER5QSqZaYGQb KRK7MQduBDEdLZFqor9KZOAxLLJoXJMhIhBcFDWdHIUoDBsjEZZdISD9TnX0NVRmSCOxAB0PIaJmBERz LBx8DEjeNGRuAHVtbp8LFIVzYUAjJQb9MgFhPPKvVLIcJQguAYZmRCTsJMD7XZVaBOYeWD5TAbGpIQAg VnGtSpfhNYFkBNCijs5IXUIrJYPnZQRzBEReBDZiGN MfGMtoKFFyKXKqFQK9QKYgHEAcLX9PRwViJEYlTmOkAdxiWUMyAABkwz3GWVEkWIDlPxZ6HJShOPDmPE WgOIlcNUZeCGZsEcB7FISqASHgGJ8RHsXuCXGbBkAxXZqdPZXmKDNurp5HKOYoNNToGYOqGyWeTCNvNZ KwIWzlVDHsBIU1VfYxHONfXACxEK6PKoLcRYUsNaO0 WnTwEPFmPQOtvz4XGRKvPEIvNWXuJKRaVXCnEYVpYSwgMPZpBJD1UWCkMARsCUAoJU4TTcJmKNFzAiZw WDGuEGZwWOBzvq1INUDaNQRaZaMaYPDyTZXqBRWeJEedDIUdEGN7ICQdZMZeTZNrJQ8OEpUhTVQtQzqp RuVkDRTzPKEplp5BFWHyLBPkNSMwXgYrXBQoVJXeWT coRNUwPSD0YYI3GSXdMLRlHN4RGbFoALsuNUEMMcw9NDbaV9t8CGPxXQ2NY5Blg3MuWjdqLNMGIBilNF 9blsSjIGVmNp1EK7hRUsikHhI9BKCbJGHuLPHhAYSbBOnkDflxDwMpAfZuIiI7Wc3kGCQeJaZnNMF6PI LyZRP1PZCcZGLnI4XfPPWjYiJwLNm1KsMlUO7QNn8LZeF1OVM9rEStFd1NUll7XIFXAzQeYD6FQYg= ID Date Data Source [id number] 12/01/2020 03:22:17 PM EDT [facility] Name Value Range Interpretation Code Description Data Ellen rce(s) Supporting Document(s) Leukocytes [#/volume] in Blood by Automated count 5.1 10*3/uL 4-10 [facility] Erythrocytes [#/volume] in Blood by Automated count 4.29 10*6/uL 4.6- 6.1 L [facility] Hemoglobin [Mass/volume] in Blood 12.8 g/dL 13.5-18 L [facility] Hematocrit [Volume Fraction] of Blood by Automated count 38.5 % 4 1-53 L [facility] Erythrocyte mean corpuscular volume [Entitic volume] by Auto mated count 89.8 fL 80-96 [facility] Erythrocyte mean corpuscular hemoglobin [Entitic mass] by Automated count 29.8 pg 27-33 [facility] Erythrocyte mean corpuscular hemoglobin concentration [Mass/volume] by Automated count 33.2 g/dL 32.0-36.0 [facility] Erythrocyte distribution width [Ratio] by Automated count 13.0 % 11.5-14.5 [facility] Platelets [#/volume] in Blood by Automated count 212 10*3/uL 150-400 [facility] Differential cell count method - Blood [facility] Neutrophils/100 leukocytes in Blood by Automated count 69 % [facility] Lymphocytes/100 leukocytes in Blood by Automated count 19 % [facility] Monocytes/100 leukocytes in Blood by Automated count 7 % [facility] Eosinophils/100 leukocytes in Blood by Automated count 5 % [facility] Basophils/100 leukocytes in Blood by Automated count 0 % [facility] Neutrophils [#/volume] in Blood by Automated count 3.50 10*3/uL 1.8-7 .0 [facility] Lymphocytes [#/volume] in Blood by Automated count 0.97 10*3/uL 1.2-4 .0 L [facility] Monocytes [#/volume] in Blood by Automated count 0.36 10*3/uL 0-0.8 [facility] Eosinophils [#/volume] in Blood by Automated count 0.23 10*3/uL 0-0.5 [facility] Basophils [#/volume] in Blood by Automated count 0.01 10*3/uL 0-0.2 [facility] Nucleated erythrocytes/100 leukocytes [Ratio] in Blood by Automated count 0 /100{WBCs} 0-0 [facility] ID Date Data Source [id number] 12/01/2020 03:23:04 PM [facility] Value Range Interpretation Code Description Data Ellen rce(s) Supporting Document(s) Magnesium [Mass/volume] in Serum or Plasma 2.0 mg/dL 1.6-2.6 [facility] ID Date Data Source [id number] 12/01/2020 03:23:04 PM EDT [facility] Name Value Range Interpretation Code Description Data Ellen rce(s) Supporting Document(s) Phosphate [Mass/volume] in Serum or Plasma 1.8 mg/dL 2.5-4.5 L [facility] ID Date Data Source [id number] 12/01/2020 03:23:04 PM EDT [facility] Name Value Range Interpretation Code Description Data Ellen rce(s) Supporting Document(s) Albumin [Mass/volume] in Serum or Plasma by Bromocresol green (BCG) dye binding method 4.0 g/dL 3.5-5.2 [facility] Bilirubin.total [Mass/volume] in Serum or Plasma 1.5 mg/dL <1.2 H [facility] Calcium [Mass/volume] in Serum or Plasma 8.4 mg/dL 8.6-10.0 L [facility] Chloride [Moles/volume] in Serum or Plasma 104 mmol/L 98-107 [facility] Creatinine [Mass/volume] in Serum or Plasma 0.79 mg/dL 0.70-1.20 [facility] Glucose [Mass/volume] in Serum or Plasma 159 mg/dL 70-140 [facility] Alkaline phosphatase [Enzymatic activity/volume] in Serum or Plasma 68 U/L 40-129 [facility] Potassium [Moles/volume] in Serum or Plasma 3.9 mmol/L 3.4-5.1 [facility] Protein [Mass/volume] in Serum or Plasma 6.0 g/dL 6.4-8.3 L [facility] Sodium [Moles/volume] in Serum or Plasma 137 mmol/L 136-145 [facility] Aspartate aminotransferase [Enzymatic activity/volume] in Serum or Plasma 11 U/L <40 [facility] Urea nitrogen [Mass/volume] in Serum or Plasma 11 mg/dL 6-20 [facility] Osmolality of Serum or Plasma by calculation 287 mosm/kg 275-300 [facility] Creatinine/Urea nitrogen [Mass Ratio] in Serum or Plasma 14 [facility] Bicarbonate [Moles/volume] in Serum 22 mmol/L 22-29 [facility] Alanine aminotransferase [Enzymatic activity/volume] in Seru m or Plasma 6 U/L <41 [facility] Anion gap 3 in Serum or Plasma 11 mmol/L 8-15 [facility] Glomerular filtration rate/1.73 sq M pre dicted among non-blacks [Volume Rate/Area] in Serum or Plasma by Creatinine-based formula (MDRD) >6 0 [facility] Glomerular filtration rate/1.73 sq M pre dicted among blacks [Volume Rate/Area] in Serum or Plasma by Creatinine-based formula (MDRD) >60 [facility] ID Date Data Source [id number] 12/01/2020 01:57:07 PM EDT [facility] Name Value Range Interpretation Code Description Data Ellen rce(s) Supporting Document(s) Consultation [facility] WTJGWu0xSwJZIvHk32/LISyjNRXzi1JnGOqjABl3KErtFHCiX5CbBJY8qQ5wHKK0PGiLHiFhUiXjOEA0 lbm LyUjgNCgFdFCFcWmaJJtHjERtzNkblrZJfUL5ThXF6MZJvX04bJFSzNCVvU3LnRVG4BqQ+Yw7YXWDtpM KwRI9DVieA3N6kL9b6Is9+Vfc/lLbc5rTpBwu97hgGruJGMLf4ApzqOhaFC1G9Uwd5QsOcN0+yJT+6Y/ rwWBoScputQJfk/qkfarVassOY+u/geZn5Gbmp+Z/q 9jMW7BoN/voXVndzRdWt/cB4Qc2GW8CW0PJ17tMhNlJ1rgveLhqnP+yn7PuQktXrc2DDlMWSc2DjMF8i CRqLIDs5uD4pdFqVtPwPRpQvt3qv3ycf0JKtarcFlH4C6pRwz+H7jdin2aaeH+waALYA6wxg2zeuvW7/ YoTZdbJK2DnNZp+d7swbHqDxBqUZ8TxIfxHm+Uveog WFzpMrNlJhUewuj9ZgaES/KrzQFcp/mhInaoX9qXu4ftn5C6WjrYhBkEh5hbrHFp/OOkswR5ohBxFjBI ecGEqw0+AcZwgzNCOsK6h1BmrpAAcQBOfcZR+dujIjZvRgB4jg7vNvPUgRzabcASJbiilQ8LEsqgX3/2 DWvWkxsfcVr88r/7Sm9tfGsZ4RI95wNrzW0wmOADxA 5XCp29lWQTMxteAgz0OzS5kyvmVoDLwr2+4IFpei3LE0mA4gghMmHys5q3c2a4kDkcxVVOpH8vuTlBok RjnuFg1LwGHEQnJvzEonjxDMLZtK50oBUAhy4VPyV+1zZ1sONApgyc3YTM22yNWwUczXotStQhPKnmNg XVHjqgfvZsEWOWOMPzGz6OAYF3QLKSGOuTNoUC9rvV [file] AgICAgICAgICAgICAgICAgICAgICAgICAgICAgICAgICAgICAgICAgICAgICAgICAgICAgICAgICAgIC AgICAgICAgICAgICAgICAgICANCiAgICAgICAgICAg ICAgICAgICAgICAgICAgICAgICAgICAgICAgICAgICAgICAgICAgICAgICAgICAgICAgICAgICAgICAg ICAgICAgICAgICAgICAgICAgICAgICAgICAgICANCiAgICAgICAgICAgICAgICAgICAgICAgICAgICAg ICAgICAgICAgICAgICAgICAgICAgICAgICAgICAgIC AgICAgICAgICAgICAgICAgICAgICAgICAgICAgICAgICAgICAgICANCiAgICAgICAgICAgICAgICAgIC AgICAgICAgICAgICAgICAgICAgICAgICAgICAgICAgICAgICAgICAgICAgICAgICAgICAgICAgICAgIC AgICAgICAgICAgICAgICAgICAgICANCiAgICAgICAg ICAgICAgICAgICAgICAgICAgICAgICAgICAgICAgICAgICAgICAgICAgICAgICAgICAgICAgICAgICAg ICAgICAgICAgICAgICAgICAgICAgICAgICAgICAgICANCiAgICAgICAgICAgICAgICAgICAgICAgICAg ICAgICAgICAgICAgICAgICAgICAgICAgICAgICAgIC AgICAgICAgICAgICAgICAgICAgICAgICAgICAgICAgICAgICAgICAgICANCiAgICAgICAgICAgICAgIC AgICAgICAgICAgICAgICAgICAgICAgICAgICAgICAgICAgICAgICAgICAgICAgICAgICAgICAgICAgIC AgICAgICAgICAgICAgICAgICAgICAgICANCiAgICAg ICAgICAgICAgICAgICAgICAgICAgICAgICAgICAgICAgICAgICAgICAgICAgICAgICAgICAgICAgICAg ICAgICAgICAgICAgICAgICAgICAgICAgICAgICAgICAgICANCiAgICAgICAgICAgICAgICAgICAgICAg ICAgICAgICAgICAgICAgICAgICAgICAgICAgICAgIC AgICAgICAgICAgICAgICAgICAgICAgICAgICAgICAgICAgICAgICAgICAgICANCiAgICAgICAgICAgIC AgICAgICAgICAgICAgICAgICAgICAgICAgICAgICAgICAgICAgICAgICAgICAgICAgICAgICAgICAgIC AgICAgICAgICAgICAgICAgICAgICAgICAgICANCjw/ oEKgM0vumAMqppP9I1xxWo9HNr2FYY4jx1GuGEMoQPrgarQdPrpRItDsLLMyRykHYez9QYmsDH9YyBQv X8YuT9CmNYyuVJ9VEENwRGDljRTtYDFbVYCnFoG6IRPfTXfaDT2IuXQnYFsdNNQeXOPoMzXrVABgIO9H TFXsL994hkBmQb0XVe0PXxPzUC4uup8OHmAtHTBpFn yJRuq1KOulVU6NtMDdoIMwFkPzJVCBRvLxK0tpo8VxShAhPDGGKRktXG6Ya0EmiQOeRRe+Gs5XZQ7hd7 EkEKbdRfKzZT9ynx4PNPpJVcHoN1JmsWvvNYGyprE8wEHcMVP4VAxanS6wTQMtHLQ4jPAnXSnQJ5ntPM DwJVXnXB0oOXFdYEOsPiZ7JKKZIN7ZFHViXMQgrKFt SVVrZDSHUX2JNYbsUCE5TVBqqgNfhUSiAKtbND3EIHVgbnHyRuZoQXIXXMb+Zn8BHU1qt4TcGHxcSWGs DV0ivk4TITbKIqTyO0B7mBScD2S4FTcuXn3CEUZrOJYsWwGrBBOFBSgcEI6DAS4vqbQ2NB5WeDKpCFUr NIBojKXmULm6X91toKGwHGgkWN8WYCM+Claudia+Pg0KIC GaENZkQPUrRqQqABESDoFrS0CtO5WKr8VkQ6XcHE09gOqlzgFvZXveGY8MOA8hRUDoIRSORS4RaZVjmC 7keiOzUcNoSBDHCtKzR01hxBTeSAVbKCUeZTYmWs4RRLHoR1EtdqTqlPcsfeMwJGBzZKPAUG0RYXncfr VpnEIxrBamIZ61fRgxXB6ISf3WOiRrIX1cme8OqCCp Lh3FTZWjCW7DFWTgBGWdGIVpLJD3QMBdZsAmTNazVQVeRXRwNNH4QCLkUQVlBV7TQhYgJPZkAVZxNRdo CGKmRHDmfb0LNITnLGUiExf1MuZoDSWvXYNmOYchINRgOEBhSHN1WNJhBAOlMN2FCoIaKFTnTEX3VJBn OWGfHYCyhf7QSOImFAIfEbmbPoDvRGQvNUViJVqoPF VcHRQ8TCI4FMPeLEDiXY4XRbZfVFJcFUY4YXSxYCFgGPYgzg1UFEHdHOZzGpN7IQDyPJYwWIGmDVusQS UpGRR8NzA8MYLzUTQdAW9JNsCoKUDyBVQ5RObtEMVtZUOqaa1RKFTlAWZuChyyWaQfOZQaYGPiBXgpKJ RnUQY2BYP7TBCgLNSiKR5YWqRrMIZdORjvRTUbFPBj RQNuxc8BAOXaGNRnFQY7RMKqWZSaPEWzDQqiZTDaIJE3NBT0PONhNZXjUH4QMmPaRWQuVIy0QQFeAXNg TMKego6HOAAuNKUlFLTpOTCwYKTvKQWrRVpmFWVbEUUoHCMyYPQmZQDwAY6QBiGlXCDnMWA2LOUqFGBg VELtrb1LTEEmNDAeRHUoCtGoFJXvHKYbYQnzXXHhUE BrYLfvNGTuHTXbBD8INoQhKPPuEPJ5WKOpCNBbRUFhsn4EHXVbFRKrZhP8JRRpALEzVKOiKCw7haJiqI BxZTn2EO9AK5RfmnIxCaMREu6Ny078VWH7BRGeHa1FF4oyKu7wAQOaPXAZEs1CYFb2MLP4QwDaBuNcWH C2RFYhLZCgF1FlIUI1LUO4KZU0GhK+IDwxZDhiYWNi IJW0IhYdSNX9B4WvAdC8NVC4CpT1NLm5SX2jAOUSGd8+XMfzmKVrqJdsVNNFLqDkHtM5QVkkZVCUPl6H ID Date Data Source [id number] 11/30/2020 10:18:16 PM EDT [facility] MR BRAIN WITH AND WITHOUT CONTRAST [id number] FINAL RESULTInterpreted by:Mariah Houser MDINDICATION: Brain metastases [...] rce(s) Supporting Document(s) ID Date Data Source [id number] 11/30/2020 04:23:58 PM [facility] Name Value Range Interpretation Code Description Data Ellen rce(s) Supporting Document(s) [facility] CQSLQm8mHnCTAuEh98/GBYkqBAEjo6HuVHjaAGp5UTvdVXGxU5CoFQM8qB2nTAB6EUmDXqJyZaWhJVV7 [facility] [file] ICAgICAgICAgICAgICAgICAgICAgICAgICAgICAgICAgICAgICAgICAgICAgICAgICAgICAgICAgICAg ICAgICAgICAgICAgICAgICAgICAgICAgICAgICAgICAgICAgICAgDQogICAgICAgICAgICAgICAgICAg ICAgICAgICAgICAgICAgICAgICAgICAgICAgICAgIC AgICAgICAgICAgICAgICAgICAgICAgICAgICAgICAgICAgICAgICAgICAgICAgICAgDQogICAgICAgIC AgICAgICAgICAgICAgICAgICAgICAgICAgICAgICAgICAgICAgICAgICAgICAgICAgICAgICAgICAgIC AgICAgICAgICAgICAgICAgICAgICAgICAgICAgICAg DQogICAgICAgICAgICAgICAgICAgICAgICAgICAgICAgICAgICAgICAgICAgICAgICAgICAgICAgICAg ICAgICAgICAgICAgICAgICAgICAgICAgICAgICAgICAgICAgICAgICAgDQogICAgICAgICAgICAgICAg ICAgICAgICAgICAgICAgICAgICAgICAgICAgICAgIC AgICAgICAgICAgICAgICAgICAgICAgICAgICAgICAgICAgICAgICAgICAgICAgICAgICAgDQogICAgIC AgICAgICAgICAgICAgICAgICAgICAgICAgICAgICAgICAgICAgICAgICAgICAgICAgICAgICAgICAgIC AgICAgICAgICAgICAgICAgICAgICAgICAgICAgICAg ICAgDQogICAgICAgICAgICAgICAgICAgICAgICAgICAgICAgICAgICAgICAgICAgICAgICAgICAgICAg ICAgICAgICAgICAgICAgICAgICAgICAgICAgICAgICAgICAgICAgICAgICAgDQogICAgICAgICAgICAg ICAgICAgICAgICAgICAgICAgICAgICAgICAgICAgIC AgICAgICAgICAgICAgICAgICAgICAgICAgICAgICAgICAgICAgICAgICAgICAgICAgICAgICAgDQogIC AgICAgICAgICAgICAgICAgICAgICAgICAgICAgICAgICAgICAgICAgICAgICAgICAgICAgICAgICAgIC AgICAgICAgICAgICAgICAgICAgICAgICAgICAgICAg ICAgICAgDQogICAgICAgICAgICAgICAgICAgICAgICAgICAgICAgICAgICAgICAgICAgICAgICAgICAg XYLuSIUcULAaMDLmNZYhBPBtTXDpGFAeVKEpEKBjOFTiKZHoPJFaIAAfKZBaYSFkHVz4Q6zyKGPmGKNe LS5iSMb4Ml2+RYqETnIpVTG5wlXzmD7DUL9vq1NwLD fyWDNjs7TrJVe5BY5NHKRrMTziXT1EGZjubt7NUGHpOJPwvBKCy7uzHtKzJGL1GTLxCygfUR1FOJMsM1 groqVzXNYzITBAZZacBGJGAKgiYLUSNONnIABrMzCbHvAkTJYcGWAiDFGTDCL5ZQOmGiQjINKcPNOrIc YyRHSRGB4SEaYcE0OmvU07ZJbFJc3+DQplbmRvYmoN OhLjOLFtw5QiCYd0FM2UEFVvRjxqk1AoCNPsTOLDUGqaFY2AVYA1LVLoSANsHq5DQJUaH790xtPrLC7T Fh6AEwChSS2lkm1XPDKkAKRiQryTGty3BNsqBK8SlUKuRZnYk99acNs5ebBzaZAMorkgeb3fXKidO0ku gMb5vM5OrMIfFGGKVUAhdFKeNH87AbAmHwHwRIm8JC OfYH0dLCxdCS3JHRA2LThnBRRxRTZbS3yPMiOcLEEzFiQhpPntIS8TAaHmA9MdplIjmNC9BHFkYWDXLk 4+NYrxanOgJozMKtXrTXExj6TzYCa5VZ1VHNYiDXirPR3CBWPeqQ5hJYxrMJ9UQhMhXCLeOLJQEpAhG6 9uxNLeKRb3F6ZtAyMbEAFvQspcIIPcSAekJuYhENEz WyBdDQogID4+ID4+NNoeEX1XKChivtTyEIZaUy9GAEZbBSWdRK7mBUYhVZSpE9H4gLnsSZAMYjPdU8wn nbrrWA7eDJWiM728fQulptVoTLNpOXGuMk4OEFDfKPL6QHPmfHPdSCWaAUZGWWdgWH5QsUKiJBF6tX1d DHcpHTMlPRRsB7yGPtVunDtqXQ36fDxdhrVhnSDtZJ o+Sa0CBG6ep0HwYEr8zoCoETrqOBV4PDdlLNDoFOJbNRRaLIH2EBH1YMAAJjUaUAWsHGYvCDllGCSeKQ Hgug6FTKLoKKX9TmE1OzZeULBiSENcDMamWXXxGMV3Wdn9OPYeOBLeJG7FOwLvMQPwOLQlEZqeOASxRR Gifo1DCRReXHSvITY6XDAeSXQxMVAdIXujJQDpONA8 QQufYQHqRYJrVN6QFvMcKCWcMAbhXRceVELdSIHxpr4VSDBfKBZcBwBrTySsGZCeMQSuYTdtIGBsFCEt GGa3CKVxILFfZD2JFnMpFABwYVNeTIClLXOnFEOrzn9CJYVoBNEyTnF1TxJsRMSaMPByNRszPTZcAFNq GWM3HOGxZWBhSX5YTqNaKHNtUBq7OZDxYWAjHKBanh 8RVROeWGYeVsn2HzArMUZbLFLjLEprVYBkJMOrCwUvVXJtENCwEY7IMcAzUVKiAtF9UDJjYDUeFMFvvp 9MQFPxOELdALG7MkJeSTMoAGRoWXwbKVZfZKP1BlX9KIGtLAWyHS2CFhPlLHUjDdQoQOAeALLdYACqjs 0SWMYuFJZpVaBwRXRySFKdYDCdMDspBLDwINC0Ckcf ZYSzMBVfQA2BAvExZNYdZsA2SZijJDRuJLShss1UIVPvQHWpByx6OBYbFKZhHYCsTWgxVIJyDOY5MGL3 FDBpTXObHS4YVoErJUJzAmrpOsrbZIVqDGYoot9PYAOqQIUhWTC1DHQdDRViUPKdJWuzBPCvKKT3Pmls HDXmBQHeKA7JOoHoHFXkXzv7CmjvZGEzOBYfyn3OQL FiQCTiNFTjTCQzOLXvIEMtTYzaMZGlSVO1AuP2YITlZHEmVO9MDxRqJFIiFmo8QBqcNFUvRGTlxh3CPJ PsCLL8RDYvZoRlYJFuHVPmYVloPCNnKGJnBfSkVYUnLJEmST9PHsRnTXDyBUE9WmQgDQCiKLIbgz4IQG YpUWZ5DvE4DKMyWITsNKYuHWzmIWKfFNUhNuA0RPAr UXHcXG1POcWjMAGzHURpFOayRLStUOJfnz3JRJMnWBM7TpG0TkTkAGVrZVKjSPlqPPFdNBYsXMQ2LYNy VYCoQU9XOmDjMQKzZVI0PGfmWBPbPLEivd1CIGJqNOU2DKC6JHRgUPViRRSuSGjjPNAtKPP6JNNnETPw KUKmLF5CSrPrMUViAER8VqSjLJIuQWSlux5MnGFrbK zupe9SKAfQVi0XbBzzQHC4HKufPv4dhLU1UaXyIBMVPt8TqbVbPAFvVKAEHRnpJBLvCUE0OlZlIms5SS KsAAI0HHSaVfMxATO8K3HdFbXvI9UxTfN7SpEkBZI8TYkaFJAxDTJwXaZ6BFK2DxujDEJkR2OqN2O+IF 0gDQo+Hx2Pi4AmveX1jtStRAc1FJvjMt2QQWRTV3MAQl== ID Date Data Source [id number] 11/30/2020 04:09:58 PM EDT [facility] Name Value Range Interpretation Code Description Data Ellen rce(s) Supporting Document(s) Consultation [facility] CLBQZk5hMzXJXwVz10/DAGgvDTFcm2HuJVuaHQi6GJrmJFRxI8XxFGH3xO7aBOK0SXePLlIxOtPpYLY5 lbm [file] DQogICAgICAgICAgICAgICAgICAgICAgICAgICAgICAgICAgICAgICAgICAgICAgICAgICAgICAgICAg ICAgICAgICAgICAgICAgICAgICAgICAgICAgICAgIC AgICAgICAgICAgDQogICAgICAgICAgICAgICAgICAgICAgICAgICAgICAgICAgICAgICAgICAgICAgIC AgICAgICAgICAgICAgICAgICAgICAgICAgICAgICAgICAgICAgICAgICAgICAgICAgICAgDQogICAgIC AgICAgICAgICAgICAgICAgICAgICAgICAgICAgICAg ICAgICAgICAgICAgICAgICAgICAgICAgICAgICAgICAgICAgICAgICAgICAgICAgICAgICAgICAgICAg ICAgDQogICAgICAgICAgICAgICAgICAgICAgICAgICAgICAgICAgICAgICAgICAgICAgICAgICAgICAg ICAgICAgICAgICAgICAgICAgICAgICAgICAgICAgIC AgICAgICAgICAgICAgDQogICAgICAgICAgICAgICAgICAgICAgICAgICAgICAgICAgICAgICAgICAgIC AgICAgICAgICAgICAgICAgICAgICAgICAgICAgICAgICAgICAgICAgICAgICAgICAgICAgICAgDQogIC AgICAgICAgICAgICAgICAgICAgICAgICAgICAgICAg ICAgICAgICAgICAgICAgICAgICAgICAgICAgICAgICAgICAgICAgICAgICAgICAgICAgICAgICAgICAg ICAgICAgDQogICAgICAgICAgICAgICAgICAgICAgICAgICAgICAgICAgICAgICAgICAgICAgICAgICAg ICAgICAgICAgICAgICAgICAgICAgICAgICAgICAgIC AgICAgICAgICAgICAgICAgDQogICAgICAgICAgICAgICAgICAgICAgICAgICAgICAgICAgICAgICAgIC AgICAgICAgICAgICAgICAgICAgICAgICAgICAgICAgICAgICAgICAgICAgICAgICAgICAgICAgICAgDQ ogICAgICAgICAgICAgICAgICAgICAgICAgICAgICAg ICAgICAgICAgICAgICAgICAgICAgICAgICAgICAgICAgICAgICAgICAgICAgICAgICAgICAgICAgICAg ICAgICAgICAgDQogICAgICAgICAgICAgICAgICAgICAgICAgICAgICAgICAgICAgICAgICAgICAgICAg ICAgICAgICAgICAgICAgICAgICAgICAgICAgICAgIC QlSOVoTCBaAZWnRJOlXVEsRHVuCHo7X0eoBDAcJNJiHA0fENd0Ap9+GSkGTlAwUCK9zqFcyO9AKR3my5 ZyNMofMEHsg9FtVNh3LO5LNYKoQHvxVB6INBjplr9GIUVvESKvaDCOb4gsBsRxXKE7DWZlDedeAQ4ALR PyB0mxkkQhWGVhFFXYEKmtPNAHDNpiWLMQIQPhJBIs DwMkFmStTJMzSCNoYEAEYPH1VDXvXlCdUHgwQQ7Yo0HwvHQ2GEz+Nu4QIQ4jn0AvSWugFtCfKY3ztz3Y KGjWWyYaT1RcbqI4LHA0TUUzKt2BEYRiFOGtjOCfMOEbGHCCXzAlI4PvgJ07FGLQXo7+DQplbmRvYmoN LjG8PKRlb2KjAWe2SJ4YHVXfDGh9qDXjW03ni7EltA YeZqriF5AcaXXVPWNopE2SKHUhYG1ZPAU8PEPzXfJzXxThMZWcWzkcAsQHMGyYQeEgR9Ptn2OsYmQ2RR HsQtUsQRmwWJKoRaL7OH46xGtoVZ9BVTFcURHjUR45FAE4UPUiBy6UIk9CSaTsPW6wwv0ZFokbRAJqLc nGYji2BSfdXZ6BcNLzK8NghJXqf7vEIfVwS9AQAXN6 EPBtCh5TMARqNaZkNKFzPBqaGZ0wCFFtIVMDkEdmgmX6TW1IDZ1tniWgIL0YSbWfRo3jEs4XAjWmM1Yp A8CxEXCdSCEKERfmGB6ITUgyNZ5jPY2Ap6VEvWJzdP3get0ZCGFgTYAzDixlfo5WYcmoZ4S2qAjtNDLj BhmlTKFUJPffVQ1GTNKbGTG7KURqZnPjGWSQHkGvQ2 0eMV1QP6Loh98hOxM7BVVuOjWeDTfiIS30xMhdnnKgpYUrlKysAB8QTe7+DQplbmRvYmoNCnhyZWYNCj HhCXDMPdFbVSCcSZFpMRKvOvQ7JeWaRj5SUXYuSJCjANNuIyMaXCKvEPGtDFygYALzCSJ8MRE3HTIcNM MpGH1KLiTuLYYfLCP6NvhdZLNkVVFqsv9PKROlRDRq FSI3HaRiKGApANXfSKhmJBCfPQQpETr7QAApAYKqDR6VMpMdAKVuYSEbTMTqUIJpENDgke3SBKYqFZZr OjI4PXPlKYKpRZVkBQhmQUWgLPF9AmN3XQLuCVGcYM3RKoPnEXJvFCz3ImjbTQQlCXCzzt3RMVTsGSPh ERU4NPGyBBPzDOHiLYcwJNBfGZGlSuS1HQZyZRRnUQ 5NGrGiGAXyZRU1IJDcCSBrOMEznt8JQMOuMFLoNUKeVSNgHPIxGCGhOPilAOCxVQV3LzJ4AXOtCZViCG 7CDaGrPQMkFmY7LzIvGPLmFUBbjd1KAHGjWIOgOxc3QpQhFSKlRIKkYFquFPWrAOO3VfJcJEItRECkKN 5MIdNdZJNjUbd1RyogPSNgCZVyvv2NTPGhXTZhBEDl NMNiKBXrJTWtEIuqMVIwOHB9WeQ2LFHrITVvAJ2JKmWwUMFoJqj3JQjfIMEmIAVpzw9ADYCaWHAfACk0 OzNeSMMbDJAzFRyqTYZaQHV0SDG4ZMXvKHGjVE3NTyGkASOvPuKwUFwbETIvSBSdlt6IXWRaKARpGAXt NvCdZYXfYFOaEVpvNNLaEKXlYlM2XNDqXVEeMR6LIf QvSAAfNxG2ZFdmGENnQJPsnm7FRHUiVPB5Xgj8RpLmIMUpVBJmYTofCONaQKByFrOeECIpNMHvDG3BLp ScAIFqLJG3MDvbHUYpQGYvkg4YJRCeICW2WhD1GSAdJDQwASSiBSsqJHSeEWUtKid9IGKmXDXeEO2GTk AeVKQmBEK5JuseTFOyZSSnuv2KDOZxTVY9CFubBaLc PZCiGSXuQJreOJBrQKE4NAT7PTBfYPZzRX9CCuZmNWAhYZW6WzsfDLHmKJNklp3SLGSmEKK4JrQjJTKx PHNgOYQyFDtfOPWpCVJ6UMi9XQOkDHWgEX1COcHfJVEtALtgLnjyNAOyBQHeuo6LmKFlaUjinw2CQHlL Bh0XjFmdQZLmRCiyUb0kgKLtXOGnNCEINx3IjqBtSK SjFUBAVOinRLMfWVBcSeCtUPL6AVG7N3Q7GdO9HznsUKPwXKJsW2N0QKwgRpP9ETPlRYNmPcsaEbXpAz K5LTNsVgK1KCY1ItDwEYIuCIG+TT6kIKj+Hi5Ph9IhjqL8wfXdZLa8MoF1Qo7HJCEBU0TAAo== ID Date Data Source [id number] 11/30/2020 02:47:27 PM EDT [facility] IR IMAGE GUIDED NEEDLE DRAIN PROCEDUREFI NAL RESULTInterpreted by:Antonio Amos MBBSPROCEDURE: ULTRASOUND GUIDED PERITONEAL NODULE BIOPSYHISTORY: 35-year-old male presents for ultrasound-guided biopsy of peritoneal nodules.COMPARISON: None.OPERATORS:Attending physician: Guillermo Valdivia MDFellow: WIN LandEDATION: 3 mg IV [...] This document has been electronically signed by Guillermo Valdivia MD on 11/30/2020 2:45 PM Name Value Range Interpretation Code Description Data Ellen rce(s) Supporting Document(s) ID Date Data Source [id number] 11/30/2020 07:38:39 PM [facility] Value Range Interpretation Code Description Data Ellen rce(s) Supporting Document(s) Carcinoembryonic Ag [Mass/volume] in Serum or Plasma <3.4 [facility] Levels of CEA should not be interpreted as absoulute evidence of the presence or absence of disease. It should not be used as a screening test for Cancer. CEA values obtained using different methodologies cannot be used interchangeably. This method is manufactured by [employer] and is an electrochemiluminesence immunoassay. ID Date Data Source [id number] 11/30/2020 07:40:30 PM [facility] Value Range Interpretation Code Description Data Ellen rce(s) Supporting Document(s) Uvqwv-4-Citfyrdbwcq [Mass/volume] in Serum or Plasma <9 [facility] ID Date Data Source [id number] 11/30/2020 07:59:29 PM [facility] Value Range Interpretation Code Description Data Ellen rce(s) Supporting Document(s) Cancer Ag 19-9 [Units/volume] in Serum or Plasma 93 U/mL <35 H [facility] ConfirmedThis test uses [employer] CA 19-9 el ectrochemiluminescent immunoassay. Results obtained with different test methods or kits cannot be used interchangeably. CA 19-9 is useful in monitoring pancreatic, hepatobiliary, gastric, hepatocelllular, and colorectal cancer. CA 19-9 value regardless of level, should not be interpreted as absolute evidence of the presence or absence of malignant disease. ID Date Data Source [id number] 11/30/2020 12:34:45 PM EDT [facility] Name Value Range Interpretation Code Description Data Ellen rce(s) Supporting Document(s) Consultation [facility] NSREUp7bSeKKWpRt93/TIWecYZLgg4BhDGlhOZk2IHlnDHXgS2TkPAK9bF8qWCI7XAmHRlCjAfSoLWU9 lbm [file] AgICAgICAgICAgICAgICAgICAgICAgICAgICAgICAg DQTgGWRlGDJaYPOkVYAhHNBnMFJkBXVvBZFqDJ9CDQLdQSMaLFVxYVZgRGKkMEJnVXJcSMEmNSEqNGAb ICAgICAgICAgICAgICAgICAgICAgICAgICAgICAgICAgICAgICAgICAgICAgICAgICAgICAgICAgICAg XRTyHMAvNSOtOE7DOGGwIQKsZHBzYEEoKMSlFLNvPO AgICAgICAgICAgICAgICAgICAgICAgICAgICAgICAgICAgICAgICAgICAgICAgICAgICAgICAgICAgIC CdRSXgVQNtBFHnQJPcLIHyTGMnEA1KXAViKYWrSZQzRNVcWTQaHWGsNNMsXCIzDEHzHLSsWYNpBGOsBK AgICAgICAgICAgICAgICAgICAgICAgICAgICAgICAg VBGlLVKzIIBeYUPhXBIxZGKxOWRtJYNoZQXkGEHqST1EYOKfVRRmXVZyKJZmSCSwUNVxINRoEHBbKCWs ICAgICAgICAgICAgICAgICAgICAgICAgICAgICAgICAgICAgICAgICAgICAgICAgICAgICAgICAgICAg DULoXLHxKFDjDMRnCS3IJDEsTOBhCTMiJXCsGHDePX AgICAgICAgICAgICAgICAgICAgICAgICAgICAgICAgICAgICAgICAgICAgICAgICAgICAgICAgICAgIC PxFUSsZJKhIBSgLSIwVHSwYHHyUTNtRX1BYCKzZUFvFLMlJMWbSJBtSSHaZFAfQGHpZAOjXGOaFHJgQN AgICAgICAgICAgICAgICAgICAgICAgICAgICAgICAg AUJtEFIfYNFtQPIgPULaWKYqHNJxZLXbAFMeKUGdRLMaLX2HCILcAGCeYEKcIDOuWQFnOWVlMWLuKVUd ICAgICAgICAgICAgICAgICAgICAgICAgICAgICAgICAgICAgICAgICAgICAgICAgICAgICAgICAgICAg IHOhIVJyFXOgPJDaLMUePA2XYCCaKZPuYVRgVKPqTO AgICAgICAgICAgICAgICAgICAgICAgICAgICAgICAgICAgICAgICAgICAgICAgICAgICAgICAgICAgIC IeFSCzABNwPUQsNKZbHMQhMHXgZFAkUORxTI8PPOJzAWTsTAGqROOgGMMbVQJzOTJjJDHaJUHaXSBnYI AgICAgICAgICAgICAgICAgICAgICAgICAgICAgICAg DWRmXKNxGNHgPMElNDDvBMSnJHKeWORjBANqSJPvXLUwEYWvBP6PEY85gHNnm5D5HLYaOY5spca/Pg0K BZhyssGmyNKrDV5HUuGfGS0fhw2QRtHaTP9ymk7ASAsAAsJlA9U1wMUnPQDyASIFVbGhT03dAEziJt37 XEctTZXzFcEwZPu8Ti4JHeWaZ0jrZEEcOaW0NDCwCx S0ONLoAaG7ZAKoQrFgJUGjEREkXIJkJFZSIPI2DHOsZpDuMNlfTP1Fb3XphRC4ZQp+Eh4ATU3vj9CrOE w5OBZvOM6kbz3XTFmFRnDhK5VzpaL0ILYxBUXtNt9BLTXyBSRukBA0EfPgEFTCAnCdD6PakC70IPVGYm 4+JFipjqBvQpcICeDhFSRes8NvXOg2MJ9TKCMgTRx6 iYTkG67yl9DwnXMwFqkpUg3cCGmzKFThY3a6zgwnz1YhqAoiYFKcSBBdJKPnWL0aAQKwJWO6RdQtTMIB PZ8CSQJmYVUbnKXnSKErIYQAND8IQZltTUT1WKYfcwUciDBbGKddGI4HOVLkmqPjFHMtNQLQUHq+Pg0K BS5ho6KyCUi5VwXtEA1hap7UMYbARvNnF3H4bYAcQ4 A6MDhbDp6LZXJzIVSrLbmvNOUPBYuhJE2URE3xpdR2BQ4WvLNxWLYyLOFusDOmQTq8I15xdEZuHNqkXJ 0KICA+Claudia+Xw4IRNXpETWdMCMgPnGxQNTDRiCnS9SuT3WDe6VyC0SuZP19vMgqwvMuWPvgUK2ZUF4wWI IvPCESGE0VsAYmbQ4ouwJ1YVDzPDEPApUfD19oqXRz VJNfXMUcPKHxRo5QARPiC8VzkvHycHjntdVlDLYmUNVHZL8RIObbxbDxhTYccUttFC51vAoqPA3COd9B LeMnHZ5mkl9OhGXwGy9BMNK5AO2AHSXqDDEvZTBsLGZ5DBNfRwIpIZtmSSWmDMHsQSJ8UGWmIUJnIO5I YnCjDQUpQFU5YExvVOFwQJXoyl8PONDrLMZ1ItT8UJ KdFVTcAIPaEFyiWCFtCETrSVF9THSoSXGlPU9FSbNkRQHgLMG5YoawCTNxTMUvuz0IHGYeOVQzMbz5Tl WdTYXmCGOrKTviAZBeRKN7LtC7RAHfVDOdBE2JWkFrZHVtYSm2VGxbPKDxRLRjfa1PZCHzLRLpHUHuYC YeYKAyYCLxKJopXEGoJBExIiQ9NOSeHYVuEG8LJsEu EQKlMYC9QSRpCKJoEKAhbc8IRCUzCTSmAUp0TOGsEJRcSFVhORyzYNCpIUIyELI7BVRrHMMzJP7MVtQn ISPaRpJeJzFcIDIpEOJogi5ICCKwUKOwQJImADQzVAFlGLXzZMdeTWYaUJY2WhVlQVLmCRNqEV0FHwSq SGCmHnCrAQLeDZKgIYFgcl6ZFULxLXJiVYS2PIXkVQ KySJXzRByzVNGaOVT1StcoNEHpBVEnVD4EHoPvALNxHsA5GeYtTJToWFXkwx8FZQAdQXRdTlccCsJzCI ZaSDUpCHvaPUIgURL5OJGvKQOrIPBxNC5DNmAcQAIaIzi2GkglRNJcJDJozq2OQFArTPZxTCT2IRAnNI IxNRSbAXvfPXJfBWC0BxG1ITPcKRSlOL1CUvQuEBAo ZzjcOjjyPHCjESRhpj5LURUdKNOhUPQlTtHjDYOvNYUlCAezHLLtMBN3NiD9YNYlDAHpFG2MFqBcPIPp KUEmXJSsAAFoLDVhys6NAJXbKHT9YKFnDgAlKEZvGFIlVMzxQWAnFFKjWxAyYPUnMYZzPR4XXzXoJUXi FCN9ZaWlFENwHCLume4CFVXnEYV4VnBeXdIhTOSmGY ImJOfpEJHtOXBlGKMsWRSpGVQuFA7ASbRuAARkQMDdNrvjNQImCFHqav4TBKXpFMF3ZnUlVyCuZMIsIK PbDPfePUEoGOL8XyL4BVYlEYZtWH7JQeHtHZOnDLD9LZWwUDGtODDcbu8JZBKxTRY3ZSTwUZViUYLbSE MvIQzfYPLmIKW5PORxCHVgDYEoTN7FBvWbXOUpOOF5 MuYoFLMtOLJpkw1MWEWfFVZ3BvO8XnYhIXIkDHWqAQzrQQCfRHJ5TkncKWYkTBRsGC3FHkYkIIfbYWQV Mdc6LHphX6a2NXB4IQ6VG0Nya9VhAWHmXLZEVKolPN3rjmPjSCYaKz7GZ0qSWikaXxLhWRCyEgShFXTh RWL5SqzgUja0QmN5ANDlTdY4VA0tLVKjWTDfRKItNe IeApZ5Kxp6L1VjMNS2KEx8IvL6QRz4WzDdVD9TYi6GHqR0PUM3hWBfEj2SUKldAgOHIeTiLI7YLHp= ID Date Data Source [id number] 11/30/2020 08:25:07 AM EDT [facility] Name Value Range Interpretation Code Description Data Ellen e(s) Supporting Document(s) History and Physical [facility] PLGFOz8vLcODQcKq46/UXBwzNJScm2OpNEuzKAn2SPowXCBgI7NdFYS8bX1hWAR3IItVHyFhDgXkDQV8 lbm OdVkeRGoHiKOGzHyxCUnMwZGwbWgeicGUyCH5BdQL0LYLeF71zPJStTRJaL0ZvSQLoXMP+Zv5BRINkyY RzDP5EGjfD5Sxqf+C9Bx6i0H1VrQGPHzn3hGWEBbjPtOu0x3ZxvI11KFW6KaSgaKH0SSp6v53/LyWRlo gP9OOxaM9zttnBU9pMhCZnBXwVf8T951oPnMCBCZl+ zz4JzpRBKF4hO8Q/kwrzqttu5DSPUANEYNVRsBVx+YKLT0K4CEIUsrDVemZCZNjRp8dTMIwgJGF7/A4N vqwjG5OC1JCtmjEQIOfwByY4wf/R8L/ofIi+1D3P2IYUZcr+FZwIW5OHShPQVq8JcYIeHmDHSeZPddyj xgfnF6GHYiDZolVRZnF9dJk+V86WJ+mSK11NiaDLEQ j3GmCavCDPa2TlvIZc2XjgUlpBVj0uH3HCuZWYZv2t81MP98xWMHK7N82A8dmBQ5rayfPHQKG7nEBxNs tMezSoxuasdOsd1YnEwjdl18d4q6DBV1v9a+wcdu3QfrrlKw9QeiT1Hr81VyYAMSRzOWInfp2++FNFQ2 sr8WOi/ljz8TxTZevARxLYcDUNzatFu7TFxWMgrv3c KJRWpzc/7GU1iOHShWeU3xlLt2Z1Bzr+fPFKHdVnOP3VWJtGeveA89uYumH7fN9vi3lJBSTHnQSJVoYw YR2MeUR434VCvDr5FHa2I85Ey1e7zs9Q48R8xe0KUw3FEZ3mmQTPSBuwYHkVNNJ1tacllgPTLKTWVWLQ 1YnCoOoOMkrnAGdJ0DXbmeAkiDp8vLqUbvStvEWZkI WG0bVmJ/D6mViBUMWcnh5FVrhOYBG/tzHxdBAY8GP2ewwIoBtVgeU308bQUmiBHap6B07MtzB2w1soP8 0IQ/YzGdK68xbpCPP9VPkTlPwg2ETFGKRYt5j3rFsYJwx1BoOgQJHdN2fN7UAUcuvTU5JEkHEbLCpIjB qnJmKEo3e6G4nmnFAnxVd3TzwlfOOQlMZQCi9p+Iris [file] va7sLzJbiLP8JtfvlGwwCxtrpjPA8clSBHKmcC/[facility] [file] Eso5Ns2pOIGXUn4+IOdepCUmjLnxKSUWPlZ9GZBrLAecJDLPQv1D ID Date Data Source [id number] 11/30/2020 05:42:47 AM EDT [facility] Name Value Range Interpretation Code Description Data Ellen rce(s) Supporting Document(s) History and Physical [facility] AJWTWn7oRlNBNwNd02/IVMafKDSfc6ShXFovCVk9UPocSBNmW1ZuZRC6tS0iSWI4YWsRSzVeShBcJEK2 lbm [file] Saúl/HD6UCjFCesDz+HK45q4kz3cXEO6IMenLOvWKRLgbZJx4IPzAnvhV5UNrpCsly6hppgn4tOaIS+zm8 [file] ICAgICAgICAgICAgICAgICAgICAgICAgICAgICAgICAgICAgICAgICAgICAgICAgICAgICAgICAgICAg ICAgICAgICAgICAgICAgICAgICAgICAgICAgICAgICAgICAgICAgDQogICAgICAgICAgICAgICAgICAg ICAgICAgICAgICAgICAgICAgICAgICAgICAgICAgIC AgICAgICAgICAgICAgICAgICAgICAgICAgICAgICAgICAgICAgICAgICAgICAgICAgDQogICAgICAgIC AgICAgICAgICAgICAgICAgICAgICAgICAgICAgICAgICAgICAgICAgICAgICAgICAgICAgICAgICAgIC AgICAgICAgICAgICAgICAgICAgICAgICAgICAgICAg DQogICAgICAgICAgICAgICAgICAgICAgICAgICAgICAgICAgICAgICAgICAgICAgICAgICAgICAgICAg ICAgICAgICAgICAgICAgICAgICAgICAgICAgICAgICAgICAgICAgICAgDQogICAgICAgICAgICAgICAg ICAgICAgICAgICAgICAgICAgICAgICAgICAgICAgIC AgICAgICAgICAgICAgICAgICAgICAgICAgICAgICAgICAgICAgICAgICAgICAgICAgICAgDQogICAgIC AgICAgICAgICAgICAgICAgICAgICAgICAgICAgICAgICAgICAgICAgICAgICAgICAgICAgICAgICAgIC AgICAgICAgICAgICAgICAgICAgICAgICAgICAgICAg ICAgDQogICAgICAgICAgICAgICAgICAgICAgICAgICAgICAgICAgICAgICAgICAgICAgICAgICAgICAg ICAgICAgICAgICAgICAgICAgICAgICAgICAgICAgICAgICAgICAgICAgICAgDQogICAgICAgICAgICAg ICAgICAgICAgICAgICAgICAgICAgICAgICAgICAgIC AgICAgICAgICAgICAgICAgICAgICAgICAgICAgICAgICAgICAgICAgICAgICAgICAgICAgICAgDQogIC AgICAgICAgICAgICAgICAgICAgICAgICAgICAgICAgICAgICAgICAgICAgICAgICAgICAgICAgICAgIC AgICAgICAgICAgICAgICAgICAgICAgICAgICAgICAg ICAgICAgDQogICAgICAgICAgICAgICAgICAgICAgICAgICAgICAgICAgICAgICAgICAgICAgICAgICAg XFCbYQUxTFHcAGNkZBZkKVEsPBGoJHVtVWIsVXQoCOYxOEPqFSHtSLIxKAFcQPGnQJu0A0awUSBaEZRk GA1nGJk7Cw5+VSgBIvRfMUV1hyWjiK1UMU1yy1SnWV sgRJLfl2CqZUm9YK5KXPQkMDrwWT3RMIptrb8NKJNhZJAhgAHGk2giUhAiVGK6PJLaSaslWU0QQXBqI3 ujixKfAHZkPJABRQzeHMPWFCysAEKTCFNjCXYbZnFwCtOrCGRhQCZnXPSSUHQ6CSOfXlHyEAgyWE9Ga5 AwfIP7RKl+Lt8XVL6kl5NgUIx0YTWlRZ1swk3BYXhG NfVjR7IvuoW7VRNsLNQcWb7ONPRrAVMcqMG5CNNpYUCKEuRoK8VppD43YVTXVm5+DQplbmRvYmoNCjQx SAUzp7SrNUw0LT3XODCzRRq6rNIrSSSIBGP5ODDbCNljf2JpNWNdsGXeSX9DSdKeRXZaXPYaUz7dCCDk GEL2YsY6KTBTGR8YEEErMJZinOMdRYZeEDOJWF4LBD caDUK3WUWnjoClzMMpHQfsVZ5OIPBztuRsIDTnQHDJXVj+Ci7HIR6cv2ZwFOe8XtVqJV8vde3VETjVGz KkR4T1aOOmJ2O6ZSwsSz0HJCBiSPVeDrnwNRKJAYzyZM6OBP3pfxB6LX8AzSLtWYPdKCXmiMTeXXs3K2 3yaIHaSHnvXN2WYNN+Claudia+Hw0CEHOtSBOoCRMmUqLn ZOKWElFtR1LxA4ISf0BwL3FqJL52zUuxljKxJFulCO5YLT8gZWBsBNXPFA3FrIOusN2hpdD6LEDpOQDO UyYnW84vkLIlOVWiEZT3OONhCl5QABCwS2XwfwVdrTumurSsLDMlFTVSKA5WVYpdbwJmlHWypQypEO00 mPdwJV1LTg0LOqRpOB8yhr8ZqDYzJr3HJVY2Xw2AZW CnLVUaSRXeXBA2IQLzTpLcPBhlLOZcMBFwXEF9UUFnLRSsEG8DScLmVXGgDRQ0CREhEGIaPDOpoj5PDK XtBPG4KfTsUNPlXODlBAZtLYmfKAZaEARoYQB1VEOeDKGvJJ9BNyQuBNIsFTYxMtWeWHDgPGWzzr4WNY QuMXYmZPAvIZEhGSPlBCJvXIhiFADdRSL5FMSvTZIl PYPpDW5YEqUhCNWgYDk8CxWiIYEsBFNaus7ILZBfLRNbPRo6CIGnPPDvOIBhGIegAWPkMYRcFNA4HVMj ATTkLR9UZvTdRDJpDVGxXQEzQVCkHKUpqt4ITBLgJQZzCKH7CzKiDUQtAWKhIMgsUOSgIGF6HHVtYXUu JONtRR5ABvXsXWAdHRllFaRmNOMxOHZxuy2JGTIxMD MlKnHiBHHmUAQrQBSzVSkpBYLbORVdGAC1FGMuHOOdJN0BPlSnDJUyFoN4FxQsMQFhVWMtcu8ADCLdQR MhSNP9DzSbUAPaSIClBUxuMJKrQKN9FnA0UAMpFEHxZM2TFyQwNATxRtV3GpPoSSAhQEHeke3EAXFrRP HoAbMdBkOlCOUlKRCwWHeoTNXkUJY0RSX8PHJyMALp BS5OQxQwXKMiEvlkLisrTCUvWDGmbi5MRPXlPOKcRBQ5TgWeCRGxRRSbPTuyVXAfPNG0BgC2KCUoENSy VN0MXdDzSTUeMxk4WYRvZRLwVPWhhh9UXHYqWQQzMQP0AgYgIJLcKQHmCEovRNOyHNMvIgZ4KUNuLCKw UH7ZXyOsFMHrFcG7GMrxJIGtXMMjpy1ZEGOtYSXwDI L8COYnMJDtPVNgPGhkAZTaFQXiGNjzDVTsCABfAL8LJzFpLBBfOHU1KEtpBSXtGPEpva8VZQUjCCG3Gf GsLtCxNCDbMWBgJNmuZIVyJWByPxJ9WNZuQLXhOK5TGdQvPLIxVGZ6OMHyMBMxQPLehx9VGSGsGJJ6BS X7OlTvCHOjIZCjTDnaEVNlUDB4WKB1UYAtOPRpXT8H TrTgVQTlNOH4VpGzQOBwDGDttv7HGMWrMJF1TPP8JGJuVIOrXMQgDHjzIZFeHJE2KpT2HXKlOSVkFA4G WtLfLZHtJWY2CnViZPErKRXjqx4BFHEwJWL8Vzr8HERaCAEoPBSfVWo2lsEgoMRuWPb3KR6ZJ0EgrkDi CNVEHp0Gk502OZNjHKJuKg0WT7poZj1qVVMtWULTEr 3FFMb6AZvrPQCzLnd2QOZ2BKgvHLT9BHBfXoC6QRSbQAHxCTU+RQq8QWA4BRDpELx9GyYsJ6GmLQQ5Xk M4FHgmH1HoNaXbJh5jWHXWQc1+QPsliYFvwQziYGHREeS4AULoMIhlYWHHJe5V ID Date Data Source [id number] 12/01/2020 10:36:00 AM T [facility] Surgical Pathology ReportName: CONRAD BYRNEMRN: [id number] Number: [id number] Date: 11/30/2020 00:00Received Date: 11/30/2020 14:55Physician(s): TASHIA PHOENIX MD PINTER, DAVID J,[facility] [place] To: TASHIA PHOENIX MDMEHTA, RADHIKA, MBBSSpecimen(s) ReceivedA: Peritoneal implant biopsyClinical HistoryIR guided biopsy for peritoneal carcinomatosisDiagnosisPERITONEAL IMPLANT, NEEDLE BIOPSY: METASTATIC A DENOCARCINOMA. (SEE NOTE).NoteIn the setting of 5.5 cm mass in the pancreas, these findings arecompatible with metastatic ductal carcinoma of the pancreas.Osmar Paulson M.D.;Resident PathologistElectronically Signed By Luther Bhat M.D., Attending Recveleoytk96/5/2021 10:36:25 The attending pathologist named above attests that he/she has personallyreviewed the relevant preparation(s) for the specimen, performedmicroscopic examination when indicated, and rendered the final diagnosis.Unless 'gross-only' is specified, the final diagnosis is based on amicroscopic examination of advertising account representative s ections of tissue.Gross DescriptionThe specimen is received in formalin and labeled with the patient's name,"Sherrie Byrne" and "peritoneal implant biopsy". It consists of multiplesoft eaton tissue cores ranging from 0.3 to 1.7 cm in length and averaging0.1 cm in diameter. Totally submitted in two cassettes designated A1-A2.KLETSEL DEHE WINTUN\\This report may include one or more immunohistochemical stain results thatuse analyte specific reagents. All positive and negative controls havebeen reviewed by the attending pathologist and are satisfactory. The testswere developed and their performance characteristics determined by [facility] Pathology department. They have not been cleared or approved by the USFood and Drug Administration. The FDA has determined that such clearanceor approval is not necessary. Name Value Range Interpretation Code Description Data Ellen rce(s) Supporting Document(s) ID Date Data Source [id number] 11/29/2020 08:50:04 PM EDT [facility] CT ABDOMEN PELVIS WITH CONTRAST [id number] FRANCO RESULT - FINALInterpreted by:Yaritza Lima BeginsSigned on [place] Nov 29, 2020 8:49 PM by Royce Banda MDTHIFani REPORT CONTAINS FINDINGS THAT MAY BE CRITICAL [...] COMPARISON: MR ABDOMEN WITH AND WITHOUT CONTRAST [id number] 11/27/2020 5:47 PM FINDINGS: Lungs: Minimal scattered [...] rce(s) Supporting Document(s) ID Date Data Source [id number] 11/29/2020 03:41:00 PM EDT [facility] Name Value Range Interpretation Code Description Data Ellen rce(s) Supporting Document(s) SARS-CoV-2 RNA 2019 nCoV Real-Time RT-PCR: NOT DETECTED [facility] This lab was ordered by [facility] and reported by [facility]. 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 [facility] Patient has symptoms related to [facility] When did you start to experience these symptoms [Date and time] [Phen X] [facility] Patient was hospitalized because of this condition [facility] patient was admitted to ICU for [facility] Patient resides in a congregate care setting [facility] status [facility] ID Date Data Source [id number] 11/29/2020 05:31:11 PM EDT [facility] Service Cmnt XXX-Imp : NoneRespiratory P CR Panel : PCR ResultsMicroorganism XXX Cult : See Labs Tab for 2019 nCoV RT-PCR resultsHAdV DNA QI LARRY+non-probe : Not DetectedHCoV [id number] Nph QI LARRY+non-probe : Not DetectedHCoV [id number] Nph QI LARRY+non-probe : Not [id number] RNA Nph QI LARRY+non-probe : Not [id number] RNA Upper resp QI LARRY+probe : Not [...] DNA Nph Q LARRY+non-probe : Not DetectedB [id number] DNA Nph LARRY+non-probe : Not Detected Name Value Range Interpretation Code Description Data Ellen rce(s) Supporting Document(s) ID Date Data Source [id number] 11/29/2020 03:45:39 PM EDT [facility] Name Value Range Interpretation Code Description Data Ellen rce(s) Supporting Document(s) pH of Venous blood 7.40 7.36-7.41 [facility] Carbon dioxide [Partial pressure] in Venous blood 50 mmHg 40-45 H [facility] Oxygen [Partial pressure] in Venous blood 30 mmHg [facility] Base excess standard in Venous blood by calculation 5 mmol/L [facility] Oxygen saturation Calculated from oxygen partial pressure in Venous blood 56 % 60-85 L [facility] Lactate [Moles/volume] in Venous blood 0.6 mmol/L 0.5-2.2 [facility] Bicarbonate [Moles/volume] in Venous blood 32 mmol/L [facility] ID Date Data Source [id number] 11/29/2020 03:16:45 PM EDT [facility] Name Value Range Interpretation Code Description Data Ellen rce(s) Supporting Document(s) Leukocytes [#/volume] in Blood by Automated count 7.7 10*3/uL 4-10 [facility] Erythrocytes [#/volume] in Blood by Automated count 5.05 10*6/uL 4.6- 6.1 [facility] Hemoglobin [Mass/volume] in Blood 15.0 g/dL 13.5-18 [facility] Hematocrit [Volume Fraction] of Blood by Automated count 45.1 % 4 1-53 [facility] Erythrocyte mean corpuscular volume [Entitic volume] by Auto mated count 89.3 fL 80-96 [facility] Erythrocyte mean corpuscular hemoglobin [Entitic mass] by Automated count 29.8 pg 27-33 [facility] Erythrocyte mean corpuscular hemoglobin concentration [Mass/volume] by Automated count 33.3 g/dL 32.0-36.0 [facility] distribution width [Ratio] by Automated count 13.3 % 11.5-14.5 [facility] Platelets [#/volume] in Blood by Automated count 314 10*3/uL 150-400 [facility] Differential cell count method - Blood [facility] Neutrophils/100 leukocytes in Blood by Automated count 78 % [facility] Lymphocytes/100 leukocytes in Blood by Automated count 12 % [facility] Monocytes/100 leukocytes in Blood by Automated count 9 % [facility] Eosinophils/100 leukocytes in Blood by Automated count 1 % [facility] Basophils/100 leukocytes in Blood by Automated count 0 % [facility] Neutrophils [#/volume] in Blood by Automated count 6.09 10*3/uL 1.8-7 .0 [facility] Lymphocytes [#/volume] in Blood by Automated count 0.90 10*3/uL 1.2-4 .0 L [facility] Monocytes [#/volume] in Blood by Automated count 0.66 10*3/uL 0-0.8 [facility] Eosinophils [#/volume] in Blood by Automated count 0.07 10*3/uL 0-0.5 [facility] Basophils [#/volume] in Blood by Automated count 0.02 10*3/uL 0-0.2 [facility] Nucleated erythrocytes/100 leukocytes [Ratio] in Blood by Automated count 0 /100{WBCs} 0-0 [facility] ID Date Data Source [id number] 11/29/2020 03:35:27 PM [facility] Value Range Interpretation Code Description Data Ellen rce(s) Supporting Document(s) Lipase [Enzymatic activity/volume] in Serum or Plasma 37 U/L 13-6 0 [facility] ID Date Data Source [id number] 11/29/2020 03:35:27 PM [facility] Value Range Interpretation Code Description Data Ellen rce(s) Supporting Document(s) Albumin [Mass/volume] in Serum or Plasma by Bromocresol green (BCG) dye binding method 4.8 g/dL 3.5-5.2 [facility] Bilirubin.total [Mass/volume] in Serum or Plasma 2.1 mg/dL <1.2 H [facility] Bilirubin.direct [Mass/volume] in Serum or Plasma 0.3 mg/dL <0.3 H [facility] Alkaline phosphatase [Enzymatic activity/volume] in Serum or Plasma 80 U/L 40-129 [facility] Aspartate aminotransferase [Enzymatic activity/volume] in Serum or Plasma 10 U/L <40 [facility] Alanine aminotransferase [Enzymatic activity/volume] in Seru m or Plasma 8 U/L <41 [facility] Protein [Mass/volume] in Serum or Plasma 6.8 g/dL 6.4-8.3 [facility] ID Date Data Source [id number] 11/29/2020 03:54:58 PM EDT [facility] Name Value Range Interpretation Code Description Data Ellen rce(s) Supporting Document(s) Bicarbonate [Moles/volume] in Serum 24 mmol/L 22-29 [facility] Chloride [Moles/volume] in Serum or Plasma 99 mmol/L 98-107 [facility] Creatinine [Mass/volume] in Serum or Plasma 0.92 mg/dL 0.70-1.20 [facility] Glucose [Mass/volume] in Serum or Plasma 96 mg/dL 70-140 [facility] Potassium [Moles/volume] in Serum or Plasma 4.0 mmol/L 3.4-5.1 [facility] Sodium [Moles/volume] in Serum or Plasma 139 mmol/L 136-145 [facility] Urea nitrogen [Mass/volume] in Serum or Plasma 13 mg/dL 6-20 [facility] Confirmed Anion gap 3 in Serum or Plasma 16 mmol/L 8-15 H [facility] Osmolality of Serum or Plasma by calculation 289 mosm/kg 275-300 [facility] Confirmed Creatinine/Urea nitrogen [Mass Ratio] in Serum or Plasma 14 [facility] Confirmed Calcium [Mass/volume] in Serum or Plasma 9.3 mg/dL 8.6-10.0 [facility] Glomerular filtration rate/1.73 sq M pre dicted among non-blacks [Volume Rate/Area] in Serum or Plasma by Creatinine-based formula (MDRD) >6 0 [facility] Glomerular filtration rate/1.73 sq M pre dicted among blacks [Volume Rate/Area] in Serum or Plasma by Creatinine-based formula (MDRD) >60 [facility] ID Date Data Source [id number] 11/29/2020 06:46:43 AM EDT [facility] Value Range Interpretation Code Description Data Ellen rce(s) Supporting Document(s) [facility] MHLCUd1fOxHBFwYt89/DSUlbREDmr2SnQKcmGIw6KPwbLISzK5YfHJD3yL8mCFV9DFeXRwDhIdHaIUZb lbm [file] ICAgICAgICAgICAgICAgICAgICAgICAgICAgICAgICAgICAgICAgICAgICAgICAgICAgICAgICAgICAg ICAgICANCiAgICAgICAgICAgICAgICAgICAgICAgIC AgICAgICAgICAgICAgICAgICAgICAgICAgICAgICAgICAgICAgICAgICAgICAgICAgICAgICAgICAgIC AgICAgICAgICAgICAgICANCiAgICAgICAgICAgICAgICAgICAgICAgICAgICAgICAgICAgICAgICAgIC AgICAgICAgICAgICAgICAgICAgICAgICAgICAgICAg ICAgICAgICAgICAgICAgICAgICAgICAgICANCiAgICAgICAgICAgICAgICAgICAgICAgICAgICAgICAg ICAgICAgICAgICAgICAgICAgICAgICAgICAgICAgICAgICAgICAgICAgICAgICAgICAgICAgICAgICAg ICAgICAgICANCiAgICAgICAgICAgICAgICAgICAgIC AgICAgICAgICAgICAgICAgICAgICAgICAgICAgICAgICAgICAgICAgICAgICAgICAgICAgICAgICAgIC AgICAgICAgICAgICAgICAgICANCiAgICAgICAgICAgICAgICAgICAgICAgICAgICAgICAgICAgICAgIC AgICAgICAgICAgICAgICAgICAgICAgICAgICAgICAg ICAgICAgICAgICAgICAgICAgICAgICAgICAgICANCiAgICAgICAgICAgICAgICAgICAgICAgICAgICAg ICAgICAgICAgICAgICAgICAgICAgICAgICAgICAgICAgICAgICAgICAgICAgICAgICAgICAgICAgICAg ICAgICAgICAgICANCiAgICAgICAgICAgICAgICAgIC AgICAgICAgICAgICAgICAgICAgICAgICAgICAgICAgICAgICAgICAgICAgICAgICAgICAgICAgICAgIC AgICAgICAgICAgICAgICAgICAgICANCiAgICAgICAgICAgICAgICAgICAgICAgICAgICAgICAgICAgIC AgICAgICAgICAgICAgICAgICAgICAgICAgICAgICAg ICAgICAgICAgICAgICAgICAgICAgICAgICAgICAgICANCiAgICAgICAgICAgICAgICAgICAgICAgICAg ICAgICAgICAgICAgICAgICAgICAgICAgICAgICAgICAgICAgICAgICAgICAgICAgICAgICAgICAgICAg ICAgICAgICAgICAgICANCjw/nCRnA8aflLPpsaO6U4 uqGy5GQs5FUL6zz3HgTCJsWQhudfWtRklIHuZnOOYtZvjIDdv3FJfgLO2QmTGgV4EpX0HqSCipHP5TCR KcKCWolHWuXHLtQCNwFgD0XCUaBAutFX1PsZJaCIlvQZZoHDXrWxIvIXUpZRUsCJCrLXXeGDWOKIDqLU GaBwEeZQrgMG5Dz2MpoXH0HOu+Vp1ICN5aq9ZhTEdy OgPhHX4wsj8UWRqCBjKcK7NmviH6UZS4GPNhWq7LMCNxEOHpxMUzNWQgXNFVHlZcR7XtpC09QCAGMp0+ POdfqqLjEcxWDhR4ZZHof3EeGJl3XL0IHSUsWCn4aRCnG33jg3RjdPRhHotiC7N5bQ5wEg5dfpihUWAg RGZyTBVoSY1wIMMuTCQsAiS3AJEMAG7IMYHzJMDeaF ChFQAePDIPJK8VFMxkMPZ7HURggzVxjKCqKPjjTD1AUJVweqLwToVjUWQQAYd+Ve4KYC6cy1YqVBoeNQ OzHT8ovw6ATAkDFdBwT7J4jORuA3P1PNbwFk0TSEGyANCoFgHnXFLANByiFE0QWK2fjzC4WD0BeGQlAE JvRZQwyTSeYHf1G75wnPSlTTigFS4LPXG+Claudia+Pg0K MNUxSJWnSJTuPhVmBJYFGkZaT0GkM7SEm5WcF3GtPT94vLjlymWcWObiGC6XJT0wVGPfNKDDRH7ZrUYb xR4zszXiYoSmMNEXToBvJ22nlDIeSZTiBOXxFZFqWo4YOKEgJ2RorjPkcMkktvNwVBMgWURHEH9FFYtk qjMbmAPmnCzxPO51nJgbKT5DWh9UXlYqEB8rop6LfG ItGq4QVAQvUr5FAMMdOCLmRPCfZGU6SBEfOcWaIBteAPSoOERjBBO7SDZmYLSjUR5QQjDrIYKyGgV7PW YfIQOpYKZblb3LDCWvQYDiCdXjNITxBFOjVLGjJDhwFEUkVYIaLYM1NGFyPCIwND8NGyRvVOOiUZPyDH bcRKMhOTTwlk3ICZCcQBRwMxZeKQCtSSBxVKBdFXtn GBHeOEZ5RKrzTZPcDAHnJJ1GFiJeHWDdXDbpHGEvWQLoNKCzuk2GJPNnFVUlEXY4BMOxIYDzRCImKVaj UMLoRWD6VUu0XEEwLTPpWN5HZbVmRDAbAMF1EZOoAHSsIHJixb2GRUEcNENvPTj6KlBjQPRaJUAcLDke QUEfUTR0JgDwHQKyFFRlQV3YRpRgFZHsJHT7FZkaQC ZgWSLooh4WJOYoSPKbJvsaElScBHDhGDXvEYwgYOAoFYI0OVT1JZYlXSHiNX6OKyItNTNuIAwfNYeeYQ IeWMJcuz1TJRIoQFZxOZB0QuQpFDLjDARkPFacFOMeQDK3BrI9CVAyHSZkUF9EYaCcMEPlLDz8XzZbKK FiJWSzdx4TNMJtXLSfEVdyAWSsGOPwWODdFJpaNDVx AQCeGnK2IIUcKKYuMI6CKiUcYYFiNmL3OOjxAGUbUXSrpl8ZDIZgDKKzBMK8ZmMhEQRmLMMmGMnfSAMg MBGrPDThXNIeKGIkMG2THvXeBYInEaZ8RjmeTNUcUEMtpc0JIHAzMUZcJvp4HVXmRZLbDURmAMqdVCCc NCQaXFWwQWPrMRZxTQ3AJtYrKJDtTaEzUXBxZTJkYZ Fdhb9LBHIfDHCqZEW2VVHkMUXdPZPaNQocNVEcRLK6CZFvAUWtOXLyIH3NUuQuQPZbDpI4LDEmMCRcOP Paxx5WEZOvZRUqXhJ2SMVyVEOdETFlXBeiFTAqBBD8QFJsPFQbCAAxEY2XNpWjMHYpSpI9DegxFOLaAD Iwid5JaQOoyBkwev7DYGoSLm3VrTdiVVJ1ARolUq7g dYJjLMFcWRZEBe4WytPrCTAdVIJFVHusSMVzMIBwEVb3Bel5FmS2XDYjMfR1IlO7WbF8IDt6KHS6Qebu EoL4RUS5ZcrcBog6Vdh2DZTcMHFjLBctZmW5JqbcCwPvPMK+TR5uNLj+Dp7Ne5SztkY5zbRuWQqdFvra Bj7MCKHUE2TEXb== ID Date Data Source [id number] 11/28/2020 10:55:45 AM EDT [facility] Name Value Range Interpretation Code Description Data Ellen rce(s) Supporting Document(s) Progress Note [facility] ZDXJXk1tQdGMAfMj90/UXPgoJQPfe0NqQPaoNKv2MDjeDVUkJ1PlRCT8oG3tBUJ0EQuDDsKdZxYlWJAg lbm [file] T0YNCg== ID Date Data Source [id number] 11/27/2020 08:15:02 PM EDT [facility] MR ABDOMEN WITH AND WITHOUT CONTRAST [id number] 83FINAL RESULTInterpreted by:SAEED Motta INFORMATION: Exam: MR Abdomen Without and With [...] (IV); COMPARISON: CT ABDOMEN PELVIS WITH CONTRAST [id number] 11/26/2020 8:23 PM FINDINGS: Liver: No mass. [...] rce(s) Supporting Document(s) ID Date Data Source [id number] 11/27/2020 12:07:56 PM [facility] Name Value Range Interpretation Code Description Data [facility](s) Supporting Document(s) [facility] URLZOr9gLxFLKqRi53/FSLhxKECqh0PaANmuYSb0FRkqQHGsZ6IzJCM3tG6aUKR4RUhNYsDtEqGhOZAm [facility] [file] wm+GAUGE CONTROLLER+C7SkTKp6HFP7bKl01UPuGKwm/O/Y7G48HyO2uv+5+Zux9hkO8+KKq3mopxN2gnABc5gKf//e++ [file] ICAgICAgICAgICAgICAgICAgICAgICAgICAgICAgICAgICAgICAgICAgICAgICAgICAgICAgICAgICAg ICAgICAgICAgICAgICAgICAgICAgICANCiAgICAgICAgICAgICAgICAgICAgICAgICAgICAgICAgICAg ICAgICAgICAgICAgICAgICAgICAgICAgICAgICAgIC AgICAgICAgICAgICAgICAgICAgICAgICAgICAgICAgICANCiAgICAgICAgICAgICAgICAgICAgICAgIC AgICAgICAgICAgICAgICAgICAgICAgICAgICAgICAgICAgICAgICAgICAgICAgICAgICAgICAgICAgIC AgICAgICAgICAgICAgICANCiAgICAgICAgICAgICAg ICAgICAgICAgICAgICAgICAgICAgICAgICAgICAgICAgICAgICAgICAgICAgICAgICAgICAgICAgICAg ICAgICAgICAgICAgICAgICAgICAgICAgICANCiAgICAgICAgICAgICAgICAgICAgICAgICAgICAgICAg ICAgICAgICAgICAgICAgICAgICAgICAgICAgICAgIC AgICAgICAgICAgICAgICAgICAgICAgICAgICAgICAgICAgICANCiAgICAgICAgICAgICAgICAgICAgIC AgICAgICAgICAgICAgICAgICAgICAgICAgICAgICAgICAgICAgICAgICAgICAgICAgICAgICAgICAgIC AgICAgICAgICAgICAgICAgICANCiAgICAgICAgICAg ICAgICAgICAgICAgICAgICAgICAgICAgICAgICAgICAgICAgICAgICAgICAgICAgICAgICAgICAgICAg ICAgICAgICAgICAgICAgICAgICAgICAgICAgICANCiAgICAgICAgICAgICAgICAgICAgICAgICAgICAg ICAgICAgICAgICAgICAgICAgICAgICAgICAgICAgIC AgICAgICAgICAgICAgICAgICAgICAgICAgICAgICAgICAgICAgICANCiAgICAgICAgICAgICAgICAgIC AgICAgICAgICAgICAgICAgICAgICAgICAgICAgICAgICAgICAgICAgICAgICAgICAgICAgICAgICAgIC AgICAgICAgICAgICAgICAgICAgICANCiAgICAgICAg ICAgICAgICAgICAgICAgICAgICAgICAgICAgICAgICAgICAgICAgICAgICAgICAgICAgICAgICAgICAg ICAgICAgICAgICAgICAgICAgICAgICAgICAgICAgICANCjw/eGXhZ6ckbSUxflT5P6pgQv1WVg6FSR7w e2NpMDUuCSghyoPcTlvRSiKfIKSpGklPRck4CXzpLL 4MoDLbP4RvA0SuDNzwPY9CTNOtQNVdmDRvQCTaTMXaTzQ3FITiYGfbDC4WuWCkLEbaBAWaSVXhCuZjKP NtUXPdLMKjIGJsFALOFVRoWMSuNiKzWEZhWCCeWF8SQCXwZ949cqWgTv2RIu1RQdMrJL1hai4UNtlcID YdHgwFCer5SVlvNH1PaHNldVUzKPDhBVQYGyCrO0sc b6GbEjrrFLVLKRgyYE2Us3EpbXEgJSl+Mw1JCS8an7LiTVbjEVLtYJ5ymy5AEZsJAqRwK4BwpRnfPYPq xlN3pENmJCE6OT3ozUL6SIBdOBJwzSKNPPKfEI0rFD8JONP9BAmnRwNmCgUzZMKtCbb5NaPSNCtTTiDa P6Ltd9OiGpF3VTCuVxLmWGfkHJJmMtH1KD71pQobQX 2NCAMaAXMiHX28TAO4GBUxLw5LKw9OQnXgIO0rmx8NIRKxNRPdHfqZXvl6XBmaJE8OoQKbG9QdhONos3 zLIgGlM3CVDIG6CADfBs4IUGAvRpEaJLOtUGjyJA6tFFGfSVNWdMpgweA9FT7KOA1vlzPvPD4VElIeSf 5lUc6PTeOtJ4JrD5EkMZGpUTMMKGmeWD3XVStkSS0o KN5Yg4JOsNEdlE5aij3BOAEbWSEvRbmeox2EDrxkS4M1oKiuOQEoBuwgCZITYQyoYP0YUPXgKGY8QHFf QiCqLGZQLdXtP59qQP0LT5Vfe49oLwH4CZNrYuStZLwgRL90oGcwfzKypHJxxNciXQ5YCw5+DQplbmRv JyfYZqijXRWMQyJtGTQITuAhHHEsYWVtVPIcRuX0Wq FrYw0YLHKuPCOvTANvMrHvQBTqGIOeIQpcZJAtBBT0REa0ZTBmEMXnUQ5IXbEwHYNoRHLkENYcFRBeMJ Kwvr8KYJLiZBJvMOW7ThNkHMEySHMfUZlsPALmSSOeOvU5PRYgXCAxOP3TUjOmPRZyNSA7AkkzYSWaBM Retd9JXOMtLXQjRkP2KNUhFONjNDWvQOlqLPHnTDH2 Art5CNFgITEqUM5SVcKsXKZlGXf5PeDgYZJcLKTadp5EAIThJCPnVVZ2NYGwAFMzUVFxDTemAVAjKNI9 TTEhRWJdTHWiZL9GKzWmAFEqBUY1DoscWIMlYWIehv4JCXXgCRAaFKR5GVFgFLYbLLEwZQzcKJVnHXZ6 PHm3CHIbMLTfUH5WZuYfCOLuEdTwYtAdJIGmWGFuqu 3VVAWxDXZdMNT2GTOlDJJdJFUfGIftOOLdQFBmEDZoJIUtLPPzXN5PUpSbMEUgZfC9TujiBOLrOOElwy 3DPUIgYLZoJWpeARLzIIIlYIBsMAniMRNcCIEyECD3TWZgPKLcKU5WQnBcLBMyTgEnSnJrTFVsITOfqv 4VKTRhCAZyObV7DQGkYUBwEGOgAGjxZGUtEVW4FgV3 WKMkGALfLW8DEaHeQZXgLcB0FlPdUGQmJJSmja6KBLSqHTUyBTZcCQHlLQPwFKMpSRunWFHiHBK5SVX0 FHZkIOXuCJ7DRaZrUMVpRpF9LaGvLEGgHWIacv2NQQFuPHXnNUp4OENiCKZqICXuLDsqSJZmKEF3MzWu HWRhARGbSL2WNpOhOTGhQgd2BBOmPVSvDWGsss5FHO BzJLBeCqw0FITyHINlHMTgYDmwSLQtTZY2FYh3STWpZRJsZP7GKvLnMEOpOmxaBHSyZBOvJHKvbi7KXD RvJBNaXJV5EOIsWLOvBHPhVHboCNOoIDM6Vos9ENDwEEJuIY4DCvUpFGLtJfo1EPMnMJXrMUIhdx6WAQ WyWZB9CYNmHYBnRIHcXUDwNFdzJLUuSYAzJNi9LWOu JBEySM3UHxJkLNXbEMG7AJEwGXDgYIBvgt8HOSWjETT5ZHZ3XWPvYVYoQSVfRZy8qeUrhUCxYXe3BY5R V9YdgmWbELEZRa7Pz775SXYkDSLnMb7HZ6dtLx7fEAUpKJDHZn2KHBl9KTriTzJ9MVYzLGZ0PdRmYbAe KXE3QTRaXGPeH6YqK9X+YPeeT0PuXvdtJPKoGsO5MH NwXBS9Gqn4YKTwZJG7LQQ3SJ9vESFMNk9+UKugrNJbrBqfIFBPBaHwEGW8BDpnPWTKZk2V ID Date Data Source [id number] 11/27/2020 02:36:39 AM EDT [facility] Name Value Range Interpretation Code Description Data Ellen e(s) Supporting Document(s) History and Physical [facility] ZVDFDs2kVrBKVkEk57/YGXfwBBZhx0OrHDxoLBt4YQfySQMuK8GbQNL9sO5hBJX5XXgAUvCzHsPfACTm lbm [file] AgICAgICAgICAgICAgICAgICAgICAgICAgICAgICAg DHYjHGBxZLDjRBJkLTSfIAGnKPLnERVzMNJfDOEiUZRbCFQcMHOfDBIcWDMyMUNeGQBhQHXzXJ3KGNTv ICAgICAgICAgICAgICAgICAgICAgICAgICAgICAgICAgICAgICAgICAgICAgICAgICAgICAgICAgICAg ICAgICAgICAgICAgICAgICAgICAgICAgICAgICAgIC SaTTCrIF3AGVFbGGXvEUAmVSGhNLVzLRJkGMKvPHDsRPSjPYZrSGSfATExCTTvXAWyGSXuTXMdWYQvBF TcXIEwOSTtWQXoKLLsBMZjHDDcNQEdTBWfZBThCFPiMWYuPWRpEGUhQGKpQDNxKO7XLTJtKQKeMZJoAU AgICAgICAgICAgICAgICAgICAgICAgICAgICAgICAg PCXyXALqVQWfICQmSJImLDQrYQXiCPOhHFIeKNDxJGFoMJChAFJdVASjDQDcIKNeBIKgECFcWLKsWA2D ICAgICAgICAgICAgICAgICAgICAgICAgICAgICAgICAgICAgICAgICAgICAgICAgICAgICAgICAgICAg ICAgICAgICAgICAgICAgICAgICAgICAgICAgICAgIC PuNBYkELZoAR7OFWLvDMIpGCIqOXLzVBYaKSHeZLRqBWSrANTuQIKaLDOsQCWkAUKgUWImIHCaGYHuHL HdEJNoQRKbBCZiNFBcKNUhFCIrBGBvDJKkOXWhMQPyXRQxQONqXWYyIMYoPOBkROYkRL0QTWOpZYZmMV AgICAgICAgICAgICAgICAgICAgICAgICAgICAgICAg ICAgICAgICAgICAgICAgICAgICAgICAgICAgICAgICAgICAgICAgICAgICAgICAgICAgICAgICAgICAg RI1PMQEjFFHdMDLjPVZmCALcRYGwEWCzBTHsKNKzIVXiUDTgFRRpYKDuKCHrDBSaMSVeJEStQBGhDIXl ICAgICAgICAgICAgICAgICAgICAgICAgICAgICAgIC TnLOVdPQTxGUUmVD3KVDRePFAaHFStUPZhVZAhSOXaGHGhXQFtOALiTCVnMNGmEWUzMGFbERFcMICaDS KhKBVvQRRgVJAvSRYpZFVqYQHqRMMnGOUfXILgAXBlFVBdRFXcEJFqOAYnMVFrCRZxJDTwFY2DCI56mH Egy5R4YUSgNQ6jhax/Cq4STLjikbCurPBsNL6OBoUl QN3jte6BNdAxVD4iau8UVPaCKrRuP1M2oBFyQZZdHBIYBrVpD44zNDzeLp07YIcbQWIfIdSaKOi7If6Y MuOyC9isBWYtWvY0CBGnQwI2SDNzYiF7OCGsBpNoOLGqDYVoQBJoUANLSSS2KJOsZtLhHgDhRRBgGP4Z KTQsY576jnViTf6EGi6WLfLfKX9iew0XMnbvGEEpIg rIOoq8OGslMM8IzNGmdEXuOHImWXSVMpGeT7rfu0IrQxzqLESPDXclML8An2TcbLCbQCm+Zc0XNG4mn3 FxMIubQTReWR2yyo5BJQrLLjLdD8KvdCaxLPrjBDQdqWUBALA6VI5uKrMNtC7obXDfXDNRTwBQGXD2CU eqKyZcGdUqVXSqYPh2WXJOZHlNJfClG3Tre8VgHrS4 XEKsOwVwZDhyBLBnScK8LT90bOyuUH7BNHBaXIVqSK09OZX1TGTkWd1DIf3AFwZwWZ9kdw9QRyvsTSWw XhoRAns7DGqoCA4LxSHdZ7RwqLTln6iNCaJeR8LAMQW0CVSqFb8QMTQnZqTtPBWpLElnBQ0lUNYoXAWV fBdxfgK7BM6XWJ6hedNsKI5OAgStPc1qPr7DDsNxC3 UgL2ItHPKlVZJKFLknTX3YFSwkLO4vLK3Ih8YIdCNjlG4wie2TFVDfDTLfIhrild5XSiojC2L0mBgjLW JaXdbiFTPZWWpkGL4WRLFuBWO0SGRzPqQkXFSNRtGcM70pIM4XL5Xoo87jPxZ1WTXuChGtLGrrTU78vT tfjgSrhLKlzLovVB0WVk7+DQplbmRvYmoNCnhyZWYN YvRmGYOQCkAjVUVhWULfIYMvCvQ5RaYiYp2MBHOfWXKqDTGbPkHxMIMzIBWxKGpxCPMmADR7TfT2YWOk MCJyDW7NIhDvIFSpTDWkCgGlGSSaAAImeh4GEMVhPFUsHJD6QxBjAKWdVOSxRBrxRMJpGCL1DRS1JGDm SHGtOV9IKbEuCVNwDIZ0UMtwBSFdIRAhxg2WRHEtTE PdANs1WESrBTTeVUYdDXrtLPRwTIX8VZYbXTPnXKCcTB5PYxNmALGzIEXgATStITHoLHSxwz3GRGTjKE IrQgKcCPMsWIEiHROeZLfaCWKtNTY9YAN2FSNwDMVvPD2KLwCkXTGbSKKnRYHzNODgNRYhbx8HUOIzCC JdBEf9OlPfQOZmPBIrNKjsLVPaYLP7GEO3MJLeXEPj KA8DScKiEDTqEqX5BKFmMGHxYTQnfq9GHUZwVBWkWMNhSMDnWRHwAZTaGTuxRPJtMID8EkVlXDDdBYPv QI1MHaHaIJMuUsS3FBehTURdZKTzoz1YDNKbRSErIto8NnHcERNzVPIfBZwxFJZoQIX1JHl5ECUlEJEs ZZ1ILyQhEEQgXprdOScuSSZdDABnoi7LCYRqOSEeRS JvPwEeSIMsFWWhNIlcLJPkBOG2GDX4KYBwQAMcPP3NJmSfSIDlIbx2KXZrKDHiKDDeng3IASUaCVCzVY R5NnZwACQjCRItEHltQXCuZRIkKyWjKFHwKKExXN9FOwUuQWBsCiX9RGHeBJBzYCAfun4MZGHxTSPnGO kgXTCnOHCxCSQvBUlfSLDjMQNmDJD1QTJtNNOtFC0J JaPwVUCxSmAsKZYsDVSnRGRvty4JJITcADY8IwE4NFNpYGIgZQRmEXawYZHeBCPqVBa1QBKqJBVzEX4F MqVcNPIhSSEzAHmfSKQkHWLjzy4QVZLcZEQ3SWU9UwBdNYItFALhIPqwPWCoOPB1ZUekQJMcBBJfKQ3L RrHjTJRuONBdLoDhEFYfNMVgno3DTAQvOXH7GvAfDd RsYVQzOTHiBTkwRDLaGOI6FEs8AOAaZHBmJP6YIyZmTLFySMF5ODMjEPYxIDJfmd6ZhKNtyOszrz7IXZ kIMc4IbMunTIDwSFqnQa4wiMAbEDVgDMGEOb6MsyZeWCItZVGDNJxoGXTbZCS9VVLjPVIbDaBmV8UuQJ JcZ2V5OaZ5ZLXaNuA9QLe3WwX0UWqiKvQqJDRsCaXz ShH1ZxT7DTUoHwQ0NoL5XlH1AzI+EG1hKYw+Eo9Ew7SzbfY3fbDoEJs0Zgq5YX2IZEIQJ1FBTa== ID Date Data Source [id number] 11/27/2020 01:35:49 AM EDT [facility] CT HEAD WITH AND WITHOUT CONTRAST [id number] INAL RESULTInterpreted by:Terrell Ritchie MDINDICATION: Trauma.TECHNIQUE: Multiaxial CT images of the [...] rce(s) Supporting Document(s) ID Date Data Source [id number] 11/26/2020 09:55:25 PM EDT [facility] CT THORAX WITH CONTRAST [id number] RESUL TInterpreted by:LUISITO KirkROCEDURE INFORMATION: Exam: CT [...] clinical indication); or iterative reconstruction. Contrast material: [id number]; Contrast volume: 100 ml; Contrast route: INTRAVENOUS [...] rce(s) Supporting Document(s) ID Date Data Source [id number] 11/26/2020 09:51:30 PM EDT [facility] CT ABDOMEN PELVIS WITH CONTRAST [id number] AL RESULTInterpreted by:LUISITO KirkROCEDURE INFORMATION: Exam: CT Abdomen And Pelvis With [...] clinical indication); or iterative reconstruction. Contrast material: [id number]; Contrast volume: 100 ml; Contrast route: INTRAVENOUS (IV); Other contrast: Oral, [id number], 40; COMPARISON: CT ABD PELVIS W/ IV [...] rce(s) Supporting Document(s) ID Date Data Source [id number] 11/26/2020 07:07:00 PM EDT [facility] Name Value Range Interpretation Code Description Data Ellen rce(s) Supporting Document(s) SARS-CoV-2 RNA 2019 nCoV Real-Time RT-PCR: NOT DETECTED [facility] This lab was ordered by [facility] and reported by [facility]. 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 [facility] Patient has symptoms related to [facility] When did you start to experience these symptoms [Date and time] [Phen X] [facility] Patient was hospitalized because of this condition [facility] patient was admitted to ICU for [facility] Patient resides in a congregate care setting [facility] status [facility] ID Date Data Source [id number] 11/26/2020 10:18:15 PM EDT [facility] Service Cmnt XXX-Imp : NoneRespiratory P CR Panel : PCR ResultsMicroorganism XXX Cult : See Labs Tab for 2019 nCoV RT-PCR resultsHAdV DNA QI LARRY+non-probe : Not DetectedHCoV [id number] Nph QI LARRY+non-probe : Not DetectedHCoV [id number] Nph QI LARRY+non-probe : Not [id number] RNA Nph QI LARRY+non-probe : Not [id number] RNA Upper resp QI LARRY+probe : Not [...] DNA Nph Q LARRY+non-probe : Not DetectedB [id number] DNA Nph LARRY+non-probe : Not Detected Name Value Range Interpretation Code Description Data Ellen rce(s) Supporting Document(s) ID Date Data Source [id number] 11/26/2020 06:47:23 PM [facility] Name Value Range Interpretation Code Description Data Ellen rce(s) Supporting Document(s) Lactate [Moles/volume] in Serum or Plasma 0.6 mmol/l 0.5-2.2 [facility] ID Date Data Source [id number] 11/26/2020 05:45:00 PM [facility] Name Value Range Interpretation Code Description Data Ellen rce(s) Supporting Document(s) Leukocytes [#/volume] in Blood by Automated count 8.2 10*3/uL 4-10 [facility] Erythrocytes [#/volume] in Blood by Automated count 4.71 10*6/uL 4.6- 6.1 [facility] Hemoglobin [Mass/volume] in Blood 14.0 g/dL 13.5-18 [facility] Hematocrit [Volume Fraction] of Blood by Automated count 42.4 % 4 1-53 [facility] Erythrocyte mean corpuscular volume [Entitic volume] by Auto mated count 90.1 fL 80-96 [facility] Erythrocyte mean corpuscular hemoglobin [Entitic mass] by Automated count 29.8 pg 27-33 [facility] Erythrocyte mean corpuscular hemoglobin concentration [Mass/volume] by Automated count 33.1 g/dL 32.0-36.0 [facility] E[facility]throcyte distribution width [Ratio] by Automated count 13.3 % 11.5-14.5 [facility] Platelets [#/volume] in Blood by Automated count 266 10*3/uL 150-400 [facility] Differential cell count method - Blood [facility] Neutrophils/100 leukocytes in Blood by Automated count 76 % [facility] Lymphocytes/100 leukocytes in Blood by Automated count 16 % [facility] Monocytes/100 leukocytes in Blood by Automated count 5 % [facility] Eosinophils/100 leukocytes in Blood by Automated count 3 % [facility] Basophils/100 leukocytes in Blood by Automated count 0 % [facility] Neutrophils [#/volume] in Blood by Automated count 6.23 10*3/uL 1.8-7 .0 [facility] Lymphocytes [#/volume] in Blood by Automated count 1.28 10*3/uL 1.2-4 .0 [facility] Monocytes [#/volume] in Blood by Automated count 0.44 10*3/uL 0-0.8 [facility] Eosinophils [#/volume] in Blood by Automated count 0.26 10*3/uL 0-0.5 [facility] Basophils [#/volume] in Blood by Automated count 0.03 10*3/uL 0-0.2 [facility] Nucleated erythrocytes/100 leukocytes [Ratio] in Blood by Automated count 0 /100{WBCs} 0-0 [facility] ID Date Data Source [id number] 11/26/2020 06:18:12 PM [facility] Value Range Interpretation Code Description Data Ellen rce(s) Supporting Document(s) Albumin [Mass/volume] in Serum or Plasma by Bromocresol green (BCG) dye binding method 4.7 g/dL 3.5-5.2 [facility] Bilirubin.total [Mass/volume] in Serum or Plasma 1.6 mg/dL <1.2 H [facility] Bilirubin.direct [Mass/volume] in Serum or Plasma 0.3 mg/dL <0.3 H [facility] Alkaline phosphatase [Enzymatic activity/volume] in Serum or Plasma 81 U/L 40-129 [facility] Aspartate aminotransferase [Enzymatic activity/volume] in Serum or Plasma 10 U/L <40 [facility] Alanine aminotransferase [Enzymatic activity/volume] in Seru m or Plasma 7 U/L <41 [facility] Protein [Mass/volume] in Serum or Plasma 7.0 g/dL 6.4-8.3 [facility] ID Date Data Source [id number] 11/26/2020 06:18:12 PM [facility] Value Range Interpretation Code Description Data Ellen rce(s) Supporting Document(s) Lipase [Enzymatic activity/volume] in Serum or Plasma 32 U/L 13-6 0 [facility] ID Date Data Source [id number] 11/26/2020 06:31:56 PM [facility] Value Range Interpretation Code Description Data Ellen rce(s) Supporting Document(s) Bicarbonate [Moles/volume] in Serum 26 mmol/L 22-29 [facility] Chloride [Moles/volume] in Serum or Plasma 98 mmol/L 98-107 [facility] Creatinine [Mass/volume] in Serum or Plasma 0.89 mg/dL 0.70-1.20 [facility] Glucose [Mass/volume] in Serum or Plasma 79 mg/dL 70-140 [facility] Confirmed Potassium [Moles/volume] in Serum or Plasma 4.0 mmol/L 3.4-5.1 [facility] Sodium [Moles/volume] in Serum or Plasma 136 mmol/L 136-145 [facility] Urea nitrogen [Mass/volume] in Serum or Plasma 7 mg/dL 6-20 [facility] Anion gap 3 in Serum or Plasma 12 mmol/L 8-15 [facility] Osmolality of Serum or Plasma by calculation 279 mosm/kg 275-300 [facility] Creatinine/Urea nitrogen [Mass Ratio] in Serum or Plasma 8 [facility] Calcium [Mass/volume] in Serum or Plasma 9.7 mg/dL 8.6-10.0 [facility] Glomerular filtration rate/1.73 sq M pre dicted among non-blacks [Volume Rate/Area] in Serum or Plasma by Creatinine-based formula (MDRD) >6 0 [facility] Glomerular filtration rate/1.73 sq M pre dicted among blacks [Volume Rate/Area] in Serum or Plasma by Creatinine-based formula (MDRD) >60 [facility] ID Date Data Source [id number] 11/26/2020 07:38:36 PM EDT [facility] Name Value Range Interpretation Code Description Data Ellen rce(s) Supporting Document(s) aPTT in Platelet poor plasma by Coagulation assay 33.2 s 24.0-33. 0 H [facility] ID Date Data Source [id number] 11/26/2020 07:38:36 PM EDT [facility] Value Range Interpretation Code Description Data Ellen rce(s) Supporting Document(s) Prothrombin time (PT) 13.9 s 11.6-14.0 [facility] INR in Platelet poor plasma by Coagulation assay 1.11 [facility] Routine intensity oral anticoagulation I NR is typically 2.0-3.0. Target INR must be clinically individualized. ID Date Data Source [id number] 11/24/2020 03:29:00 PM EDT [facility] [address] [place] [address] PHONE: [phone] FAX: [phone] Name .................. : ALECIA Gaviria Acct Number.................. : [id number] ROOM. ................. : [facility] MR Number ................... : [id number] Stay type ............. : E/R Discharge Date......... ... : 11/24/20 Admit Date ......... : 11/23/20 Admit Phys .................... : LEXUS VÁSQUEZ Date of ....... : 1985 Family Phys ................... : NO PCP Phone .................. : [phone] Age ................................ : 35 Film# .................. .:[id number] Sex ................................. : M Unsigned transcriptions are preliminary reports and do not represent a medical or legal document CT ABD & PELVIS W/ IV ONLY [id number] COMPLETE:11/23/20 23:38 [id number] Reason(s): epigastric pain, known pancreatic mass on [...] fat. Based on Page 1 of 3 [facility] [address] [place] [address] PHONE: [phone] FAX: [phone] Name .................. : ALECIA Gaviria Acct Number.................. : [id number] ROOM. ................. : [facility]-20 Number ................... : [id number] Stay type ............. : E/R Discharge Date......... ... : 11/24/20 Admit Date ......... : 11/23/20 Admit Phys .................... : LEXUS VÁSQUEZ Date of ....... : 1985 Family Phys ................... : NO PCP Phone .................. : [phone] Age ................................ : 35 Film# .................. .:[id number] Sex ................................. : M Unsigned transcriptions are preliminary reports and do not represent a medical or legal document CT ABD & PELVIS W/ IV ONLY [id number] COMPLETE:11/23/20 23:38 81055 Reason(s): epigastric pain, known pancreatic mass on CTon 11/14 in [facility] subsequently described findings this is most likely [...] distention or pneumatosis. Page 2 of 3 [facility] [address] [place] [address] PHONE: [phone] FAX: [phone] Name .................. : ALECIA Gaviria Acct Number.................. : [id number] ROOM. ................. : [facility]-20 MR Number ................... : [id number] Stay type ............. : E/R Discharge Date......... ... : 11/24/20 Admit Date ......... : 11/23/20 Admit Phys .................... : LEXUS VÁSQUEZ Date of ....... : 1985 Family Phys ................... : NO PCP Phone .................. : [phone] Age ................................ : 35 Film# .................. .:[id number] Sex ................................. : M Unsigned transcriptions are preliminary reports and do not represent a medical or legal document CT ABD & PELVIS W/ IV ONLY [id number] COMPLETE:11/23/20 23:38 09880 Reason(s): epigastric pain, known pancreatic mass on [...] MD , 11/24/20 15:29, SCB Transcribe Initials: SSR, Transcribe Date: 11/24/20 08:58, Dictation Date: Copy for: EMERGENCY DEPT via modem Copy for: 710 MED REC DISCHARGED Page 3 of 3 Name Value Range Interpretation Code Description Data Ellen rce(s) Supporting Document(s) ID Date Data Source [id number] 11/23/2020 10:52:00 PM EDT [facility] 1 OrderSheet [facility] Emergency Department [address] [place] [address] Phone #: [phone]- [phone] 11/23/2020 22:44 Patient: SHERRIE BYRNE Sex: M : 1985 Age: 35yWEIGHT:83.9 kg (S) HEIGHT:71 inches (S) BMI:25.8ALLERGIES: Sulfa AntibioticsCHIEF COMPLAINT: abdominal painDIAGNOSIS: Intestinal obstruction, Biliary calculusLAB ORDERSOrder Description Priority Entered Acknowledged InitialedCBC w Diff STAT 23:36 11/23/2020 00:10 11/24/2020 Nicolasa Alberts M.D.; R.N.CMP STAT 23:36 11/23/2020 00:10 11/24/2020 Nicolasa Alberts M.D.; R.N.Lipase STAT 23:11/23/2020 00:10 11/24/2020 Nicolasa Alberts M.D.; R.N.UA Reflex [...] Only Nicolasa Alberts(Oxygen?(No)) Nancy; R.NYoshi(IV?(Yes)) 2 OrderSheet [facility] Emergency Department [address] [place] [address] Phone #: ext- [phone] 11/23/2020 22:44 [id number] Sex[facility] M : 1985 Age: 35y Reason for Study: epigastric pain, [facility]IP/FLUID ORDERSOrder Description Priority Entered Acknowledged InitialedLR IV [...] 10 mL NS, Nicolasa Albertsadminister over at M.D.; R.N.least 2 minutes,NOW x1)GENERAL ORDERSOrder Description Priority [...] rce(s) Supporting Document(s) ID Date Data Source [id number] 11/23/2020 10:52:00 PM EDT [facility] 1 Medication Reconciliation Report [facility] Emergency Department [address] [place] [address] Phone #: ext- [phone] 11/23/2020 22:44 Patient: [...] rce(s) Supporting Document(s) ID Date Data Source [id number] 11/23/2020 10:52:00 PM EDT [facility] 1 Medication Administration Record [facility] Emergency Department [address] [place] [address] Phone #: ext- [phone] 11/23/2020 22:44 Patient: SHERRIE BYRNE Sex: M : 1985 Age: 35yWeight: 83.9 kgHeight/Length: 71 inBMI: 25.8ALLERGIES: Sulfa Antibiotics Date/Time Medication Administered Medication OrderedStart LR [IV] LR IV : Bolus 500 mL, then 52559:06 11/24/2020 Dose: IV Fluids mL/hrTina Lonnie Mckenna [...] rce(s) Supporting Document(s) ID Date Data Source [id number] 11/23/2020 10:52:00 PM EDT [facility] 1 General Instructions [facility] Emergency Department [address] [place] [address] Phone #: ext- [phone] 11/23/2020 22:44 Patient: SHERRIE BYRNE Sex: M : 1985 Age: 35yEarly small bowel obstruction associated with intestinal bands / adhesions.Cholelithiasis. No obstruction or cholecystitis.Pancreatic Mass with Metastases.INSTRUCTIONSDrink plenty of fluids. Avoid alcohol. Avoid fatty, fried/greasy, lactose-containing (such as milk, cheeseand ice cream), salty and spicy foods. No alcohol. Do not smoke.(PLEASE TRY TO OBTAIN CARE AT HIGHER LEVEL OF CARE FAWN IN ORDER TO GET QUICKDIAGNOSIS AND QUICK [...] department as needed. Follow up with a engraver jewelry and surgeon today.Reason for referral: evaluation and [...] been discussed with the 2 General Instructions [facility] Emergency Department [address] [place] [address] Phone #: ext- [phone] 11/23/2020 22:44 Patient: SHERRIE BYRNE Sex: M [...] I understand that a doctor at this [facility] wants to give me certain medicalcare. The doctor explained that care to me, and I understand what that care is. The doctor also explainedto me what could happen to me if I leave here without having that care, and I understand what he said. Iwant to leave this [facility] without receiving the recommended care. I know that I am welcome to return [facility] ([place], [place]) at any time to receive the recommended care or any other care that I may need at any time,regardless of my ability to pay for such care.(Electronically signed by Nicolasa Alberts M.D. 11/24/2020 03:35) Name Value Range Interpretation Code Description Data Ellen rce(s) Supporting Document(s) ID Date Data Source [id number] 11/23/2020 10:52:00 PM EDT [facility] 1 Clinical Report - Nurses [facility] Emergency Department [address] [place] [address] Phone #: ext- [phone] 11/23/2020 22:44 Patient: SHERRIE BYRNE Sex: M : 1985 Age: 35yTRIAGETriage time: 22:45 11/23/2020.Chief Complaint: CHEST PAIN.( reports that it is a recurrent issue. Tonight at 8 pm he was so uncomfortable that he couldn't sleep.). Hehas had nausea. 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 Temp: 98.7 F. Pain levelnow: 12/06. --23:05 11/23/20 Sade Mckenna R.N.Weight: 83.9 kg [...] had thoughts 2 Clinical Report - Nurses [facility] Emergency Department [address] [place] [address] Phone #: ext- [phone] 11/23/2020 22:44 Patient: SHERRIE BYRNE Sex: M : 1985 Age: 35y about harming or killing others?". ABUSE ASSESSMENT: No report of abuse. FALL RISK ASSESSMENT: Fall risk assessment completed. Risk factors identified include severe pain. Fall interventions initiated. Bed in low position. Brakes on. --23:03 11/23/20 Sade Mckenna R.N.PHYSICAL [id number] 11/23/20. Ambulatory to room.GENERAL / NEURO / [...] one attempt. Blood drawn: rainbow set (by KENTON, RN). --00:11 11/24/20 Sade Mckenna R.N. 00:06 11/24/2020 [...] this medication. Verbalizes understanding. --00:13 11/24/20 Sade cMkenna R.N. 00:10 11/24/2020 PROTONIX (Pantoprazole Sodium) IVP [...] Mckenna R.N. 3 Clinical Report - Nurses [facility] Emergency Department [address] [place] [address] Phone #: ext- [phone] 11/23/2020 22:44 Patient: SHERRIE BYRNE Sex: M : 1985 Age: 35y Patient transported to [place] by wheelchair with lead nuclear medicine technologist. --00:11/24/20 Sade Mckenna R.N. 23:00 11/23/20. manager training and development, NIBP monitor and pulse oximeter placed on patient; monitor alarms on; see monitor strips (See printout for frequent v/s). --02:14 11/24/20 Sade Mckenna R.N. 00:15 11/24/20. BP: 139/98. MAP: 111. HR: 68. RR: 12. O2 saturation: 100%. --02:17 11/24/20 Sade Mckenna R.N. 01:15 11/24/20. BP: 154/97. MAP: 116. HR: 69. RR: 14. O2 saturation: 98%. --02:11/24/20 Sade Mckenna R.N. 02:00 11/24/20. BP: 161/98. MAP: 119. HR: 66. RR: 16. O2 saturation: 100%. --02:19 11/24/20 Sade Mckenna R.N. The patient is calm and resting quietly. Overall patient status is improved. ( Provider in to speak with pt regarding Finding of todays testing. IV fluids infusing. Disk made to send with pt.). --02:11/24/20 Sade Mckenna R.N. 03:11/24/2020 IV Fluids LR via IV site #1 Discontinued: discontinued upon discharge. Total amount infused: 850 mL. --03:11/24/20 Sade Mckenna R.N.DISPOSITION / DISCHARGE Departure time: [...] prior to leaving. --03:11/24/20 Sade Mckenna R.N. 03:11/24/20. BP: 150/100. MAP: 116. HR: 69. RR: 16. O2 saturation: 97%. Temp: 99.1 F. Pain level now: 0/10. --03:11/24/20 Sade Mckenna R.N. 03:11/24/2020 Site #1 removed upon discharge. Bandage applied. --03:11/24/20 Sade Mcknena R.N.Locked/Released at 11/24/2020 07:01 by Sade Mckenna R.N. Name Value Range Interpretation Code Description Data Ellen rce(s) Supporting Document(s) ID Date Data Source [id number] 11/23/2020 10:52:00 PM EDT [facility] 1 Clinical Report - Physicians/Mid Levels [facility] Emergency Department [address] [place] [address] Phone #: ext- [phone] 11/23/2020 22:44 Patient: [...] (pt lives 1 hr from here, past [place], was seen at [facility] on 11/14 for abdominal pain, had CTAP w IV that showed possible pancreatic neoplasm w mets and gallstones; pt w as referred to Dr. Richardson today who told him about results and was not sure; pt visited a friend here in [facility] then pain was too bad so came here). No recent travel. Similar symptoms previously. ( recently, in last 2 weeks, worse tonight). Recent medical care: The patient was seen recently by a health care provider. ( today at Dr. Richardson's office, surgeon in [place]).REVIEW OF SYSTEMSNo constipation, black stools, hematemesis, difficulty [...] Sulfa Antibiotics. 2 Clinical Report - Physicians/Mid [facility] Emergency Department [address] [place] [address] Phone #: chy- [phone] 11/23/2020 22:44 Patient: SHERRIE BYRNE Sex: M [...] No sensory deficit.LABS, X-RAYS, AND EKGAbdominal CT: [facility] Report Call: [phone] Online chat: [email or web address] Name: SHERRIE BYRNE (Age): 1985 35 Gender: MDate of Exam: 11/24/2020 [id number] Physician: NICOLASA ALBERTS # of Images: [id number] As: CT ABDOMEN/PELVIS WPROCEDURE INFORMATION:Exam: CT Abdomen And Pelvis With ContrastExam date and time: 11/24/2020 12:28 AMAge: 35 years oldClinical indication: Abdominal pain; Patient HX: Epigastric pain, known pancreatic mass MA on CTon 11/14 in at other facilityTECHNIQUE:Imaging protocol: Computed tomography of the abdomen and pelvis with contrast. 3 Clinical Report - Physicians/Mid Levels [facility] Emergency Department [address] [place] [address] Phone #: ext- [phone] 11/23/2020 22:44 Patient: [...] the preliminary and final interpretation, please notify ad [email or web address] you do not have access to our QA portal, call our QA team at [phone] STATEMENTThis report is intended only for the use of the referring physician, and only in accordance with law, If youreceived this in error, call [phone] 2 of 2IMPRESSION:1. Dilated small bowel consistent [...] disease. 4 Clinical Report - Physicians/Mid Levels [facility] Department [address] [place] [address] Phone #: ext- [phone] 11/23/2020 22:44 Patient: SHERRIE BYRNE Sex: M : 1985 Age: 35y6. Left lower lobe pulmonary nodule. Follow-up as clinically indicated.Thank you for allowing us to participate in the care of your patient.Dictated and Authenticated by: Nikita Cardoza MD11/24/2020 1:44 AM Eastern Time ([facility]). Study type: abdomen and pelvis. Abdominal CTperformed [...] 10.2) 5 Clinical Report - Physicians/Mid Levels [facility] Emergency Department [address] [place] [address] Phone #: ext- [phone] 11/23/2020 22:44 Patient: [...] Male GFR Interprentation 20-49 yrs >60 mL/min Edjxsr90-37 yrs >56 mL/min Normal 60-69 yrs >49 mL/min Normal 70-79yrs>42 mL/min Normal 80 and above >35 mL/min Normal Female GFRInterpretation 20-39 yrs >60 mL/min Normal 40-49 yrs >58 mL/minNormal 50-59 yrs >51 mL/min Normal 60-69 yrs >45 mL/min Nyvgds25-67 yrs >39 mL/min Normal 80 and above >32 mL/min NormalLipase: (SILEVRIO: 11/23/2020 22:55) ( [facility] 11/24/2020 00:08) Final results Test Result Flag Units (Reference) LIPASE 30 U/L (13 - 60)UA REFLEX TO UA CULTURE: (SILVERIO: 11/24/2020 01:05) ( [facility] 11/24/2020 01:26) Final results Test Result Flag [...] (NORMAL: NONELactic Acid: (SILVERIO: 11/23/2020 22:55) ( [facility] 11/23/2020 23:50) Final results Test Result Flag Units (Reference) LACTIC ACID 1.3 MMOL/L (0.2 - 2.2)CPK: (SILVERIO: 11/23/2020 22:55) ( [facility] 11/24/2020 00:09) Final results Test Result Flag Units (Reference) CPK 73 U/L (30 - 170)CRP: (SILVERIO: 11/23/2020 22:55) ( [facility] 11/24/2020 00:09) Final results Test Result Flag Units (Reference) CRP-HS 2.54 MG/L (1.00 - 3.00) CDC/S HS-CRP CUT-OFF: RELATIVE RISK: <1.0 mg/LLow 1.0 - 3.0 mg/L Average >3.0 mg/LHigh Optimally, the average of HS-CRP results repeated two weeks apart should be used for 6 Clinical Report - Physicians/Mid Levels [facility] Emergency Department [address] [place] [address] Phone #: ext- [phone] 11/23/2020 22:44 Patient: SHERRIE BYRNE Sex: M : 1985 Age: 35y risk assessment. Troponin-T: (SILVERIO: 11/23/2020 22:55) ( [facility] 11/24/2020 00:08) Final results Test Result Flag [...] end up anywhere since most hospitals in [facility] are full because of Covid and Vaccine mandate; pt prefers to sign out AMA and he will have his father drive him to [place] in the morning; pt is capable of deciding AMA; will wait for morphine to wear off before he leaves the premises; pt understands d/c instructions and urgency to get this evaluated since 1st s imilar CT was at [facility] on 11/24/20. Patient counseled in person regarding [...] QUICK 7 Clinical Report - Physicians/Mid Levels [facility] Emergency Department [address] [place] [address] Phone #: ext- [phone] 11/23/2020 22:44 Patient: [...] department as needed. Follow up with a engraver jewelry and surgeon today.Reason for referral: evaluation and [...] know that I am welcome to return [facility] ([place], [place]) at any time to receive the recommended care or any other care that I may need at any time,regardless of my ability to pay for such care. 8 Clinical Report - Physicians/Mid Levels [facility] Emergency Department [address] [place] [address] Phone #: ext- [phone] 11/23/2020 22:44 Patient: SHERRIE BYRNE Sex: M : 1985 Age: 35y(Electronically signed by Nicolasa Alberts M.D. 11/24/2020 03:35) Name Value Range Interpretation Code Description Data Ellen rce(s) Supporting Document(s) ID Date Data Source [id number] 11/24/2020 01:26:00 AM EDT [facility] Name Value Range Interpretation Code Description Data Ellen rce(s) Supporting Document(s) UA REFLEX TO UA CULTURE [facility] URINALYSIS SOURCE R [facility] COLOR yellow NORMAL: Yellow [facility] CLARITY clear NORMAL: Clear [facility] Specific gravity of Urine by Test strip 1.005 1.001 - 1.030 [facility] pH 5 5 - 9 [facility] Glucose [Mass/volume] in Urine by Test strip NORM NORMAL: Negat [facility] Bilirubin.total [Presence] in Urine by Test strip NEG NORMAL: Negative [facility] Ketones [Presence] in Urine by Test strip NEG NORMAL: Negative [facility] Protein [Mass/volume] in Urine by Test strip 15 NORMAL: Negat [facility] Nitrite [Presence] in Urine by Test strip NEG NORMAL: Negative [facility] BLOOD NEG NORMAL: Negative [facility] Leukocyte esterase [Presence] in Urine by Test strip NEG VLAD L: Negative [facility] Urobilinogen [Mass/volume] in Urine by Test strip NOR less joleen n 1.0 mg/dL [facility] MICROSCOPIC See Below [facility] ital WBC None Seen NORMAL: NONE SEEN [facility] Erythrocytes [#/volume] in Urine by Test strip 0 - 1 NORMAL: NON E SEEN [facility] EPITHELIAL FEW NORMAL: NONE SEEN [facility] ID Date Data Source [id number] 11/24/2020 12:09:00 AM EDT [facility] Name Value Range Interpretation Code Description Data Ellen rce(s) Supporting Document(s) C reactive protein [Mass/volume] in Serum or Plasma by High sensitivity method 2.54 MG/L 1.00 - 3.00 [facility] CDC/S HS-CRP CUT-OFF: RELATIVE RISK: <1.0 mg/L Low 1.0 - 3.0 mg/L Average >3.0 mg/L High Optimally, the average of HS-CRP results repeated two weeks apart should be used for risk assessment. ID Date Data Source [id number] 11/24/2020 12:08:00 AM EDT [facility] Name Value Range Interpretation Code Description Data Ellen rce(s) Supporting Document(s) Creatine kinase [Enzymatic activity/volume] in Serum or Plasma 7 3 U/L 30 - 170 [facility] ID Date Data Source [id number] 11/24/2020 12:08:00 AM EDT [facility] Name Value Range Interpretation Code Description Data Ellen rce(s) Supporting Document(s) Lipase [Enzymatic activity/volume] in Serum or Plasma 30 U/L 13 - 60 [facility] ID Date Data Source [id number] 11/24/2020 12:08:00 AM EDT [facility] Name Value Range Interpretation Code Description Data Ellen rce(s) Supporting Document(s) COMPREHENSIVE METABOLIC PANEL [facility] COMPREHENSIVE METABOLIC PANEL Sodium [Moles/volume] in Serum or Plasma 140 mEq/L 134 - 153 [facility] Potassium [Moles/volume] in Serum or Plasma 4.0 mEq/L 3.6 - 5.0 [facility] Chloride [Moles/volume] in Serum or Plasma 102 mEq/L 98 - 107 [facility] Carbon dioxide, total [Moles/volume] in Serum or Plasma 26 MEQ/L 22 - 30 [facility] Glucose [Mass/volume] in Serum or Plasma 109 MG/DL 70 - 99 H [facility] BUN 8 MG/DL 7 - 21 [facility] Creatinine [Mass/volume] in Serum or Plasma 0.9 MG/DL 0.7 - 1.5 [facility] BUN/CREAT 9 8 - 27 [facility] al Protein [Mass/volume] in Serum or Plasma 7.2 G/DL 6.3 - 8.2 [facility] Albumin [Mass/volume] in Serum or Plasma 5.2 G/DL 3.9 - 5.0 H [facility] Globulin [Mass/volume] in Serum by calculation 2.0 GM/DL 2.4 - 3.2 L [facility] A/G RATIO 2.6 0.8 - 2.0 H [facility] Calcium [Mass/volume] in Serum or Plasma 9.6 MG/DL 8.4 - 10.2 [facility] Bilirubin.total [Mass/volume] in Serum or Plasma 1.5 MG/DL 0.2 - 1.3 H [facility] Alkaline phosphatase [Enzymatic activity/volume] in Serum or Plasma 89 U/L 38 - 126 [facility] Aspartate aminotransferase [Enzymatic activity/volume] in Serum or Plasma 13 U/L 5 - 40 [facility] Alanine aminotransferase [Enzymatic activity/volume] in Seru m or Plasma 13 U/L 7 - 56 [facility] Anion gap 3 in Serum or Plasma 12.0 mmol/L 8.0 - 16.0 [facility] AGE 35 yrs [facility] NON-AA GFR >60 mL/min [facility] AFR AMER GFR >60 mL/min [facility] Male GFR In [...] >32 mL/min Normal ID Date Data Source [id number] 11/24/2020 12:08:00 AM EDT [facility] Name Value Range Interpretation Code Description Data Ellen rce(s) Supporting Document(s) TROPONIN T <0.01 NG/ML 0.00 - 0.10 [facility] TROPONIN T0.1 ng/ml Recommended as the c linical threshold value forTroponin T. ID Date Data Source [id number] 11/23/2020 11:50:00 PM EDT [facility] Name Value Range Interpretation Code Description Data Ellen rce(s) Supporting Document(s) CBC W/AUTOMATED DIFF [facility] COMPLETE BLOOD COUNT Leukocytes [#/volume] in Blood by Automated count 8.6 10^3/uL 4.2 - 1 1.0 [facility] Erythrocytes [#/volume] in Blood by Automated count 5.07 10^6/uL 4. 50 - 6.30 [facility] Hemoglobin [Mass/volume] in Blood 15.3 g/dL 14.0 - 16.0 [facility] Hematocrit [Volume Fraction] of Blood by Automated count 45.3 % 4 1.0 - 51.0 [facility] Erythrocyte mean corpuscular volume [Entitic volume] by Auto mated count 89.3 fL 80.0 - 94.0 [facility] Erythrocyte mean corpuscular hemoglobin [Entitic mass] by Automated count 30.2 pg 27.0 - 34.0 [facility] Erythrocyte mean corpuscular hemoglobin concentration [Mass/volume] by Automated count 33.8 g/dL 31.0 - 36.0 [facility] Erythrocyte distribution width [Ratio] by Automated count 12.3 % 11.5 - 14.8 [facility] Platelets [#/volume] in Blood by Automated count 317 10^3/uL 150 - 45 0 [facility] Platelet mean volume [Entitic volume] in Blood by Automated count 8.9 fL 7.4 - 10.4 [facility] Neutrophils/100 leukocytes in Blood by Automated count 70.1 % 37. 0 - 80.0 [facility] Lymphocytes/100 leukocytes in Blood by Manual count 19.8 % 25.0 - 40.0 L [facility] Monocytes/100 leukocytes in Blood by Automated count 6.0 % 3.0 - 8.0 [facility] Eosinophils/100 leukocytes in Blood by Automated count 3.5 % 0.0 - 7.0 [facility] Basophils/100 leukocytes in Blood by Automated count 0.3 % 0.0 - 2.0 [facility] %IG 0.3 % 0.0 - 0.0 H [facility] al %NRBC 0.0 % 0.0 - 0.0 [facility] Neutrophils [#/volume] in Blood by Automated count 6.03 10^3/uL 2.00 - 6.90 [facility] Lymphocytes [#/volume] in Blood by Automated count 1.71 10^3/uL 0.60 - 3.40 [facility] Monocytes [#/volume] in Blood by Automated count 0.52 10^3/uL 0.00 - 0.90 [facility] Eosinophils [#/volume] in Blood by Automated count 0.30 10^3/uL 0.00 - 0.70 [facility] Basophils [#/volume] in Blood by Automated count 0.03 10^3/uL 0.00 - 0.20 [facility] #IG 0.03 10^3/uL 0.00 - 0.10 [facility] #NRBC 0.00 10^3/uL 0.00 - 0.00 [facility] MANUAL DIFF NOT INDICATED [facility] RBC MORPH NOT INDICATED [facility] ID Date Data Source [id number] 11/23/2020 11:50:00 PM EDT [facility] Name Value Range Interpretation Code Description Data Ellen rce(s) Supporting Document(s) Lactate [Moles/volume] in Serum or Plasma 1.3 MMOL/L 0.2 - 2.2 [facility] Procedure Social History No Information Vital Signs ID Date Data Source UNK Name Value Range Interpretation Code Description Data Source(s) Body height 70 [in_i] 70 [in_i] [facility]) 5'10" Systolic blood pressure 124 mm[Hg] 124 [facility] Diastolic blood pressure 82 mm[Hg] 82 mm[Hg] [facility] Body temperature 98.2 [degF] 98.2 [degF] [facility] ([facility]) Body weight 189.38 [lb_av] 189.38 [facility]lb_av[facility] Body mass index (BMI) [Ratio] 27.2 kg/m2 27.2 k g/m2 [facility]) [place] body weight 166 [lb_av] 166 [lb_av] [facility] Body weight 85.900 kg 85.900 kg [facility]) Body surface area Derived from formula 2.04 m2 2.04 m2 [facility] ([facility]) Body mass index (BMI) [Ratio] 26.7 kg/m2 26.7 k g/m2 [facility] ([facility]) Body temperature 97.5 [degF] 97.5 [degF] [facility] ([facility]) Body height 72.25 [in_i] 72.25 [in_i] MONAE ([facility]) 6'0.25" Body weight 198.50 [lb_av] 198.50 [lb_av] BÁRBARA T ([facility]) ID Date Data Source [id number] 12/15/2020 01:51:21 PM EDT [facility] Name Value Range Interpretation Code Description Data Source(s) WEIGHT RECORDED 185 lb 185 lb [facility] Body height Measured 71 in 71 in [facility]
[2020-12-15 19:25] LABS: BASO % 0.5 % (0.0-1.0); EOS % 1.5 % (0.0-3.0); HEMATOCRIT 47.2 % (42.0-52.0); HEMOGLOBIN 15.5 g/dl (13.5-17.5); LYMPH # 0.7 10^3/uL (1.5-5.0); MEAN CORPUSCULAR HEMOGLOBIN 29.2 pg (27.0-33.0); MEAN CORPUSCULAR HGB CONC 32.8 g/dl (32.0-36.5); MEAN CORPUSCULAR VOLUME 88.9 fl (80.0-96.0); MONO # 0.3 10^3/uL (0.0-0.8); MONO % 14.1 % (2.0-8.0); NEUTROPHILS # 1.1 10^3/uL (1.5-8.5); NEUTROPHILS % 51.4 % (36.0-66.0); PLATELET COUNT, AUTOMATED 304 10^3/uL (150-450); RED BLOOD COUNT 5.31 10^6/uL (4.30-6.10); WHITE BLOOD COUNT 2.1 10^3/uL (4.0-10.0)
[2020-12-15 19:49] LABS: ALBUMIN 3.8 GM/DL (3.2-5.2); BILIRUBIN,DIRECT 0.5 MG/DL (0.0-0.2); BILIRUBIN,TOTAL 1.4 MG/DL (0.2-1.0); TOTAL PROTEIN 7.3 GM/DL (6.4-8.2)
[2020-12-15] MEDS ORDERED: NS 1,000 ML IV ONE (20:20)
[2020-12-15] MEDS ORDERED: ONDANSETRON 4MG/2ML VIAL IV ONE (20:20)
[2020-12-15] MEDS: MORPHINE 4 MG/ML 1ML VIAL/SYRINGE (J2270) IV PRN ×2 (20:35→21:31)
--- OUTSIDE RECORDS SUMMARY | 2020-12-15 21:17 | CCD ---
Author Author [facility] Organization [facility] Address Unknown Phone Unavailable Care Team Providers Care Track Rider Name Role Phone ED, TEST DEFAULT Unavailable [...] Unavailable Irwni Matthews MD Unavailable Unavailable Irwin Matthesw MD Unavailable Unavailable Irwin Matthews MD Unavailable [...] O SHERRIE MD Unavailable Unavailable SULEMAN, O SEHRRIE MD Unavailable Unavailable SULEMAN, O SHERRIE MD [...] is protected by Article 27-F of the [facility] Public Health law. If you continue you may have access to information: Regarding HIV / AIDS; Provided by facilities licensed or operated by the [facility] Office of Mental Health; or Provided by the [facility] Office for People With Developmental Disabilities. If such information is present, then the following [facility] mandated warning applies: This information has [...] law may result in a fine or shelter sentence or both. A general authorization for the release of medical or other information is NOT sufficient authorization for further disc losure. Allergies and Adverse Reactions Type Description Substance Reaction Status Data Source(s ) Propensity to adverse reactions SULFA ANTIBIOTICS SULFA ANTIBIOTICS O ther [facility] Family History Family Member Name Family Member Gender Family Member Status Date o f Status Description Data Source(s) Unknown Male Problem [facility] ([facility]) Encounters Encounter Providers Location Date Indications Data Source(s ) Outpatient Attender: Irwin Matthews MDReferrer: FANI ELLINGTON MD 12/21/2020 12:00:00 AM [facility] Outpatient Attender: Irwin Matthews MDReferrer: FANI ELLINGTON MD 12/16/2020 12:00:00 AM [facility] Outpatient Attender: Kaleigh Hilario 12/15/2020 12:00:00 A M [facility] Outpatient Attender: FANI ELLINGTON MD 12/09/2020 12:00: 00 AM [facility] Malignant neoplasm of pancreas, unspecified [facility] Malignant neoplasm of pancreas, unspecif ied Outpatient Attender: FANI ELLINGTON MD 12/09/2020 12:00:00 AM [facility] Inpatient Attender: TASHIA PHOENIX MD Admitter: TASHIA PHOENIX MDReferrer: TASHIA PHOENIX MD 11/30/2020 12:00:00 AM EDT - 11/30/2020 11:59:00 PM EDT [facility] Inpatient Attender: MAGDALENE MAUREENIRENE RESIDENTReferrer: MAREK JOHNSTON RESIDENT 11/30/2020 12:00:00 AM EDT [facility] Inpatient Attender: Alejo García DOAtten sandy: FANI ELLINGTON MDAttender: MAGDALENE JOHNSTON RESIDENTAttender: TASHIA PHOENIX MDAttender: KESHIA NEWBY MDAttender: PARIS AHN MDAdmitter: MAGDALENE JOHNSTON RESIDENTReferrer: MAGDALENE JOHNSTON RESIDENTConsultant: Alejo García DO A-10E 11/29/2020 12:00:00 AM EDT - 12/05/2020 01:15:00 PM EDT [facility] Nausea Patient discharged. Outpatient Attender: Dana Betts MD [id number] 11/28/2020 10:55:45 AM EDT [facility] Inpatient Attender: YOLY CHILDS MDReferrer: YOLY CHILDS MD 11/27/2020 12:00:00 AM EDT Other specified diseases of pancreas [facility] Other specified diseases of pancreas Inpatient Attender: YOLY CHILDS MDAtt yennifer: TASHIA PHOENIX MDAttender: PARIS AHN MDAttender: DEFAULT EDAdmitter: TASHIA PHOENIX MD [id number] 11/26/2020 12:00:00 AM EDT - 11/28/2020 10:30:00 AM EDT sent by provider [facility] sent by provider Patient discharged. Emergency Attender: NICOLASA ALBERTSConsultant: PCP NO 11/23/2020 10:52:00 PM EDT - 11/24/2020 03:21:[address] [facility] Patient discharged. Outpatient Attender: SHERRIE Dunaway/Brittney/Gato/Shrery indl 11/23/2020 10:15:00 AM EDT [facility] ([facility], ) OFFICE OUTPATIENT VISIT 15 MINUTES Attender: NELL ENGLISH Phys ical Therapy 10/01/2020 04:00:00 PM EDT [facility] ([facility] ) Outpatient Attender: Frank Hightower MD Physical Therapy 09/09/2020 0 8:45:00 AM EDT [facility] ([facility] ) Outpatient Attender: NELL ENGLISH Physical Therapy 08/25/2020 1 0:00:00 AM EDT [facility] ([facility] ) Medications Medication [...] A DAY AFTER 1 WEEK SOLD: 09/01/2020 M[facility]as gabapentin 100 MG Oral Capsule Gabapentin 08/25/2020 12:00:00 AM EDT ORAL active [facility] ([facility]) tizanidine 4 MG Oral Tablet Tizanidine HCL 08/25/2020 12:00:00 AM EDT ORAL active [facility] ([facility] ) tizanidine 4 MG Oral Tablet TIZANIDINE HCL 08/25/2020 12:00:00 AM EDT tablet 60 TAKE ONE TABLET BY MOUTH EVERY 6 HOURS NEEDED TAKE ONE TABLET BY MOUTH EVERY 6 HOURS NEEDED SOLD: 09/01/2020 [facility] Insurance Providers Payer name Policy type / Coverage type Policy ID Covered democrat ID Covered democrat's relationship to butler Policy Butler Plan Information [facility] () Workers Compensation [id number] Self [id number] [facility] () Workers Compensation [id number] Self [id number] [facility] () Workers Compensation [id number] Self [id number] [id number] Self [id number] MEDICAID [id number] Self [id number] BCBS EMPIRE STAN DIV [id number] SP [id number] STATE INSURANCE FUND O [id number] S [id number] BCBS EMPIRE STAN DIV [id number] SP [id number] SELF PAY ONLY [id number] SP [id number] O UNAVAILABLE UNAVAILA BLE STATE INSURANCE FUND [id number] SP [id number] SELF PAY UNAVAILABLE SP UNAVAILA BLE NATIONAL GENERAL INSURANCE [id number] SP [id number] ARS MEDICAID [id number] SP [id number] P [place]BS OF [place] WATN [id number] SP [id number] BLUE CROSS BLUE SHIELD -O/P [id number] STATE INSURANCE FUND [id number] SP [id number] STATE INSURANCE FUND [id number] SP [id number] Problems, Conditions, and Diagnoses Code Display Name Description Problem Type Effective Dates Data Source(s) C25.9 Malignant neoplasm of pancreas, unspecif ied Malignant neoplasm of pancreas, unspecified Diagnosis 12/09/2020 12:00:00 AM EDT [facility] Nausea Nausea Diagnosis 11/29/2020 01:32:00 PM ED T [facility] R10.9 Unspecified abdominal pain Unspecified abdominal pain Diagnosis 11/27/2020 05:32:08 PM EDT [facility] K86.89 Other specified diseases of pancreas Oth er specified diseases of pancreas Diagnosis 11/27/2020 05:32:08 PM EDT [facility] sent by provider sent by provider Diagnosis 11/26/2020 12 :15:00 PM EDT [facility] Z8719 Personal history of other diseases of th e digestive system Personal history of other diseases of the digestive system Diagnosis [facility] Procedure and treatment not carried out because of patient's decision for unspecified reasons Procedure and treatment not carried out because of patient's decision for unspecified reasons Diagnosis 11/23/2020 [facility]52[facility] C801 Malignant (primary) neoplasm, unspecifie d Malignant (primary) neoplasm, unspecified Diagnosis 11/23/2020 10:52:00 PM EDT [facility] 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 Diagnosis 11/23/2020 10:52:00 PM ED T [facility] K8020 Calculus of gallbladder without cholecys titis without obstruction Calculus of gallbladder without cholecystitis without obstruction Diagnosis 11/23/2020 10:52:00 PM EDT [facility] R1013 Epigastric pain Epigastric pain Diagnosis 11/23/2020 10:5 2:00 PM EDT [facility] Surgeries/Procedures Procedure Description Date Indications Data Source(s) OFFICE OUTPATIENT NEW 45 MINUTES 11/23/2020 12:00:00 A M EDT [facility] ([facility]) OFFICE OUTPATIENT VISIT 15 MINUTES 10/01/2020 12:00:00 AM EDT [facility] ([facility]) OFFICE OUTPATIENT VISIT 25 MINUTES 09/09/2020 12:00:00 AM EDT [facility] ([facility]) RADEX SPINE LUMBOSACRAL MINIMUM 4 VIEWS 08/25/2020 12: 00:00 AM EDT [facility] ([facility]) OFFICE OUTPATIENT NEW 45 MINUTES 08/25/2020 12:00:00 A M EDT [facility] ([facility]) Results ID Date Data Source [id number] 12/15/2020 01:51:21 PM EDT [facility] Name Value Range Interpretation Code Description Data Ellen rce(s) Supporting Document(s) Discharge Summary [facility] [id number] lbm [file] [id number]/GcJ0zzcF0zY/eef [file] [id number]== ID Date Data Source [id number] 12/08/2020 02:00:00 AM EDT [facility] Name Value Range Interpretation Code Description Data Ellen rce(s) Supporting Document(s) SARS coronavirus 2 RNA [Presence] in Res piratory specimen by LARRY with probe detection NEGATIVE [facility] This lab was ordered by [facility] a nd reported by [facility]. ID Date Data Source [id number] 12/06/2020 08:49:24 AM EDT [facility] Name Value Range Interpretation Code Description Data Ellen rce(s) Supporting Document(s) Discharge Summary [facility] [id number]/FFCtzZKKvj6OfPLfhOJc0LSuyHMTgD5ZvTXE6xY6nFNE9YLeOMoEvPbLxOSWx lbm [file] [id number]== ID Date Data Source [id number] 12/05/2020 02:39:26 AM EDT [facility] Name Value Range Interpretation Code Description Data Ellen rce(s) Supporting Document(s) Leukocytes [#/volume] in Blood by Automated count 3.9 10*3/uL 4-10 L [facility] Erythrocytes [#/volume] in Blood by Automated count 4.54 10*6/uL 4.6- 6.1 L [facility] Hemoglobin [Mass/volume] in Blood 13.5 g/dL 13.5-18 [facility] Hematocrit [Volume Fraction] of Blood by Automated count 40.6 % 4 1-53 L [facility] Erythrocyte mean corpuscular volume [Entitic volume] by Auto mated count 89.4 fL 80-96 [facility] Erythrocyte mean corpuscular hemoglobin [Entitic mass] by Automated count 29.7 pg 27-33 [facility] Erythrocyte mean corpuscular hemoglobin concentration [Mass/volume] by Automated count 33.2 g/dL 32.0-36.0 [facility] width [Ratio] by Automated count 13.1 % 11.5-14.5 [facility] Platelets [#/volume] in Blood by Automated count 224 10*3/uL 150-400 [facility] Differential cell count method - Blood [facility] Neutrophils/100 leukocytes in Blood by Automated count 91 % [facility] Lymphocytes/100 leukocytes in Blood by Automated count 6 % [facility] Monocytes/100 leukocytes in Blood by Automated count 3 % [facility] Eosinophils/100 leukocytes in Blood by Automated count 0 % [facility] Basophils/100 leukocytes in Blood by Automated count 0 % [facility] Neutrophils [#/volume] in Blood by Automated count 3.58 10*3/uL 1.8-7 .0 [facility] Lymphocytes [#/volume] in Blood by Automated count 0.25 10*3/uL 1.2-4 .0 L [facility] Monocytes [#/volume] in Blood by Automated count 0.10 10*3/uL 0-0.8 [facility] Eosinophils [#/volume] in Blood by Automated count 0.00 10*3/uL 0-0.5 [facility] Basophils [#/volume] in Blood by Automated count 0.00 10*3/uL 0-0.2 [facility] Nucleated erythrocytes/100 leukocytes [Ratio] in Blood by Automated count 0 /100{WBCs} 0-0 [facility] ID Date Data Source [id number] 12/05/2020 02:59:25 AM EDT [facility] Name Value Range Interpretation Code Description Data Ellen rce(s) Supporting Document(s) Albumin [Mass/volume] in Serum or Plasma by Bromocresol green (BCG) dye binding method 4.5 g/dL 3.5-5.2 [facility] Bilirubin.total [Mass/volume] in Serum or Plasma 1.3 mg/dL <1.2 H [facility] Calcium [Mass/volume] in Serum or Plasma 9.2 mg/dL 8.6-10.0 [facility] Chloride [Moles/volume] in Serum or Plasma 99 mmol/L 98-107 [facility] Creatinine [Mass/volume] in Serum or Plasma 0.73 mg/dL 0.70-1.20 [facility] Glucose [Mass/volume] in Serum or Plasma 107 mg/dL 70-140 [facility] Alkaline phosphatase [Enzymatic activity/volume] in Serum or Plasma 65 U/L 40-129 [facility] Potassium [Moles/volume] in Serum or Plasma 4.5 mmol/L 3.4-5.1 [facility] Hemolyzed Protein [Mass/volume] in Serum or Plasma 6.4 g/dL 6.4-8.3 [facility] Sodium [Moles/volume] in Serum or Plasma 133 mmol/L 136-145 L [facility] Aspartate aminotransferase [Enzymatic activity/volume] in Serum or Plasma 118 U/L <40 H [facility] Urea nitrogen [Mass/volume] in Serum or Plasma 15 mg/dL 6-20 [facility] Osmolality of Serum or Plasma by calculation 278 mosm/kg 275-300 [facility] Creatinine/Urea nitrogen [Mass Ratio] in Serum or Plasma 20 [facility] Bicarbonate [Moles/volume] in Serum 23 mmol/L 22-29 [facility] Alanine aminotransferase [Enzymatic activity/volume] in Seru m or Plasma 187 U/L <41 H [facility] Anion gap 3 in Serum or Plasma 12 mmol/L 8-15 [facility] Glomerular filtration rate/1.73 sq M pre dicted among non-blacks [Volume Rate/Area] in Serum or Plasma by Creatinine-based formula (MDRD) >6 0 [facility] Glomerular filtration rate/1.73 sq M pre dicted among blacks [Volume Rate/Area] in Serum or Plasma by Creatinine-based formula (MDRD) >60 [facility] ID Date Data Source [id number] 12/05/2020 02:59:25 AM [facility] Name Value Range Interpretation Code Description Data Ellen rce(s) Supporting Document(s) Magnesium [Mass/volume] in Serum or Plasma 2.5 mg/dL 1.6-2.6 [facility] ID Date Data Source [id number] 12/05/2020 02:59:25 AM [facility] Value Range Interpretation Code Description Data Ellen rce(s) Supporting Document(s) Phosphate [Mass/volume] in Serum or Plasma 3.3 mg/dL 2.5-4.5 [facility] ID Date Data Source [id number] 12/04/2020 12:44:36 AM [facility] Value Range Interpretation Code Description Data Ellen rce(s) Supporting Document(s) Leukocytes [#/volume] in Blood by Automated count 7.2 10*3/uL 4-10 [facility] Erythrocytes [#/volume] in Blood by Automated count 4.35 10*6/uL 4.6- 6.1 L [facility] Hemoglobin [Mass/volume] in Blood 12.9 g/dL 13.5-18 L [facility] Hematocrit [Volume Fraction] of Blood by Automated count 39.0 % 4 1-53 L [facility] Erythrocyte mean corpuscular volume [Entitic volume] by Auto mated count 89.6 fL 80-96 [facility] Erythrocyte mean corpuscular hemoglobin [Entitic mass] by Automated count 29.6 pg 27-33 [facility] Erythrocyte mean corpuscular hemoglobin concentration [Mass/volume] by Automated count 33.0 g/dL 32.0-36.0 [facility] Erythrocyte distribution width [Ratio] by Automated count 13.2 % 11.5-14.5 [facility] Platelets [#/volume] in Blood by Automated count 265 10*3/uL 150-400 [facility] Differential cell count method - Blood [facility] Neutrophils/100 leukocytes in Blood by Automated count 88 % [facility] Lymphocytes/100 leukocytes in Blood by Automated count 5 % [facility] Monocytes/100 leukocytes in Blood by Automated count 7 % [facility] Eosinophils/100 leukocytes in Blood by Automated count 0 % [facility] Basophils/100 leukocytes in Blood by Automated count 0 % [facility] Neutrophils [#/volume] in Blood by Automated count 6.34 10*3/uL 1.8-7 .0 [facility] Lymphocytes [#/volume] in Blood by Automated count 0.36 10*3/uL 1.2-4 .0 L [facility] Monocytes [#/volume] in Blood by Automated count 0.51 10*3/uL 0-0.8 [facility] Eosinophils [#/volume] in Blood by Automated count 0.00 10*3/uL 0-0.5 [facility] Basophils [#/volume] in Blood by Automated count 0.00 10*3/uL 0-0.2 [facility] Nucleated erythrocytes/100 leukocytes [Ratio] in Blood by Automated count 0 /100{WBCs} 0-0 [facility] ID Date Data Source [id number] 12/04/2020 01:00:28 AM EDT [facility] Name Value Range Interpretation Code Description Data Ellen rce(s) Supporting Document(s) Albumin [Mass/volume] in Serum or Plasma by Bromocresol green (BCG) dye binding method 4.4 g/dL 3.5-5.2 [facility] Bilirubin.total [Mass/volume] in Serum or Plasma 1.1 mg/dL <1.2 [facility] Calcium [Mass/volume] in Serum or Plasma 8.7 mg/dL 8.6-10.0 [facility] Chloride [Moles/volume] in Serum or Plasma 99 mmol/L 98-107 [facility] Creatinine [Mass/volume] in Serum or Plasma 0.76 mg/dL 0.70-1.20 [facility] Glucose [Mass/volume] in Serum or Plasma 103 mg/dL 70-140 [facility] Alkaline phosphatase [Enzymatic activity/volume] in Serum or Plasma 63 U/L 40-129 [facility] Potassium [Moles/volume] in Serum or Plasma 4.3 mmol/L 3.4-5.1 [facility] Hemolyzed Protein [Mass/volume] in Serum or Plasma 6.2 g/dL 6.4-8.3 L [facility] Sodium [Moles/volume] in Serum or Plasma 136 mmol/L 136-145 [facility] Aspartate aminotransferase [Enzymatic activity/volume] in Serum or Plasma 195 U/L <40 H [facility] Urea nitrogen [Mass/volume] in Serum or Plasma 13 mg/dL 6-20 [facility] Osmolality of Serum or Plasma by calculation 282 mosm/kg 275-300 [facility] Creatinine/Urea nitrogen [Mass Ratio] in Serum or Plasma 17 [facility] Bicarbonate [Moles/volume] in Serum 24 mmol/L 22-29 [facility] Alanine aminotransferase [Enzymatic activity/volume] in Seru m or Plasma 164 U/L <41 H [facility] Anion gap 3 in Serum or Plasma 13 mmol/L 8-15 [facility] Glomerular filtration rate/1.73 sq M pre dicted among non-blacks [Volume Rate/Area] in Serum or Plasma by Creatinine-based formula (MDRD) >6 0 [facility] Glomerular filtration rate/1.73 sq M pre dicted among blacks [Volume Rate/Area] in Serum or Plasma by Creatinine-based formula (MDRD) >60 [facility] ID Date Data Source [id number] 12/04/2020 01:00:28 AM EDT [facility] Name Value Range Interpretation Code Description Data Ellen rce(s) Supporting Document(s) Magnesium [Mass/volume] in Serum or Plasma 2.1 mg/dL 1.6-2.6 [facility] ID Date Data Source [id number] 12/04/2020 01:00:28 AM [facility] Name Value Range Interpretation Code Description Data Ellen rce(s) Supporting Document(s) Phosphate [Mass/volume] in Serum or Plasma 3.2 mg/dL 2.5-4.5 [facility] ID Date Data Source [id number] 12/03/2020 06:02:00 PM EDT [facility] Name Value Range Interpretation Code Description Data Ellen rce(s) Supporting Document(s) Albumin [Mass/volume] in Serum or Plasma by Bromocresol green (BCG) dye binding method 4.3 g/dL 3.5-5.2 [facility] Bilirubin.total [Mass/volume] in Serum or Plasma 1.0 mg/dL <1.2 [facility] Calcium [Mass/volume] in Serum or Plasma 9.2 mg/dL 8.6-10.0 [facility] Chloride [Moles/volume] in Serum or Plasma 100 mmol/L 98-107 [facility] Creatinine [Mass/volume] in Serum or Plasma 0.70 mg/dL 0.70-1.20 [facility] Glucose [Mass/volume] in Serum or Plasma 87 mg/dL 70-140 [facility] Alkaline phosphatase [Enzymatic activity/volume] in Serum or Plasma 63 U/L 40-129 [facility] Potassium [Moles/volume] in Serum or Plasma 4.2 mmol/L 3.4-5.1 [facility] Protein [Mass/volume] in Serum or Plasma 6.1 g/dL 6.4-8.3 L [facility] Sodium [Moles/volume] in Serum or Plasma 137 mmol/L 136-145 [facility] Aspartate aminotransferase [Enzymatic activity/volume] in Serum or Plasma 57 U/L <40 H [facility] Urea nitrogen [Mass/volume] in Serum or Plasma 10 mg/dL 6-20 [facility] Osmolality of Serum or Plasma by calculation 283 mosm/kg 275-300 [facility] Creatinine/Urea nitrogen [Mass Ratio] in Serum or Plasma 14 [facility] Bicarbonate [Moles/volume] in Serum 23 mmol/L 22-29 [facility] Alanine aminotransferase [Enzymatic activity/volume] in Seru m or Plasma 35 U/L <41 [facility] Anion gap 3 in Serum or Plasma 14 mmol/L 8-15 [facility] Glomerular filtration rate/1.73 sq M pre dicted among non-blacks [Volume Rate/Area] in Serum or Plasma by Creatinine-based formula (MDRD) >6 0 [facility] Glomerular filtration rate/1.73 sq M pre dicted among blacks [Volume Rate/Area] in Serum or Plasma by Creatinine-based formula (MDRD) >60 [facility] ID Date Data Source [id number] 12/03/2020 12:26:22 PM EDT [facility] Name Value Range Interpretation Code Description Data Ellen rce(s) Supporting Document(s) ED Provider Note [facility] OLUBVs5xFfUDYsMy40/PCAnmKKEws8CcMFeaSVa9NTndPSIoB4IjVHH6lK3wRGP0HNqPLpIyQeBsLYR0 lbm [file] kASy3wWSUp8K5G73Bg3NO+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/s20XKZKw6CImfwKZztlW8YQm65wmYEiBUsQGupLlHgbSLcgIjIAHsD [file] JQNmEVLvSZYzZQDQPAzxPS5BVA0tjrI0EX1DiFEgSVJbNGFkuULvYKs2D54ofMDnVSahAU1VWQJ+Claudia+ Zs6ZKKJuYJOxAXBdXzNjPNOMVpBhJ0SeF9TKx7BxR7RpXW86rKlfmgIaPPfxHO2EKF1cVUMjZLQAUU8Q pTNduH8cfyK0XPCjWJXPStSqF07qgMNxZRQeDJL2MT YtKp6SENBuN7YjyyMrtKytrwOnBNSqBJLMLC7LHGtwycEohAWxfNkvNU86gOydNJ6VBx1VXcSqRE7obx 7DcPUcIi6SPQP8LD9KEHZeAXGfHMJbSTV6AAJkDkXbXXmeDRQkTXBnBQP9LOGoPMSsVD7DZkGgUFJnJQ WcXqotPAOsOOFglg1EUZCdWOC0YCn4JKEqMFYnBKKh MCgmDYUiXQRuZEW2BKBwPIZzPP5IVvOxEVDpVLJdUcLfVEWqKDHepe0GMIOwZIPfBnI1RDUfJKPyJEGm VPtdUJPuYME6JtAvXJNeIWItQI0YTnKsDEQyFOT6KKlkOYDbHFUssw5XYAKkAWChKMq0AWRuXHUeNWFo UDjoUUUoGQL3NHX3FOJmBFTzUM5ZObKeTCDyKXCjVG gcSDEeQJJutf9JMLOiKWDaWdNiOBCkHQDnYEOcQTruPPElPRW8BCF8KGLgSRYeLZ2UZlYgMHGrPHVlGM ZpFPIzVUAkcx8YTPYgRLWrGjF6DYRoAITsJYXzJVyaBATyGNR3KUmeSXUmJHDdDN9RDzHxBPGoUfT2Et CyGKWiOGAokz6ZBDWlPPWzDWT2CtJcHQPrACQoIPtr KUXpRUB4BFWzHXJjBPUyVT6KLwYzJJEdNwQsTEMeBXCfESOkgm4PHSQoXJKxAoz8KjYgODTiYLBeIZgm VBMkTFO8VQQ4CQRyJJFeQR7SYoWtRVAnBni8FXKdPDDtEJWtqo8XDEMlLYBrVRc3UOYsWGJsLMSdRFvm WSDySOCeSHu8NFXxHHEqNK7HXzZpKYLsGkMrMCXcEI TiDIJcuy5EABJlFCDpFrN2MPCgLHCxCWOzOCwvWXXhGEQsPtRmLGKwCSNhVD6NRcQuMHAiPvC4IjUxEK KaRNAymh4DRUSgIYBvVsC6QsDyCRFhVELqIOggYKIqBFIkCZg3SBPqRTBtDT7IVgJkIYSlNwI2EDWnBG QeAYVkhx4DUVYiGIFrNNi8TqPgDAWfVLJdCOdaNSGc VPW7MHBuTUDjMXDuOP5RGaRuPEOzDpZaXmCjCOObDRDzro7KZQSuALG0EaP3AqRgBMMiYJUvXYkcDSPd VSX2RLf5GVOwBXIwIY2LLrGjEJRhHTshUTvlGRCrBUAdcz5UBUIgRJC6UkAaZbDhEXXpGXByYHpwHIBo LWH4RVhlKVSmEYKuVK1BTlIaMQXsSGx3WpomKOXrQM Gpke6FGFYdIKK5TBVnZSByRPCrDVTaWXpuRWZgXJF0BterOGCxYJOuRY1USbXyYPXlBVr6EcXfUILnEM Gztj5OOIYxUGP2WQpxKfKxWYBhLSPwZGgiVPEfLYLqWFJ2GMCcLJCuCZ8RPdIgYZYgLFO0GBIxZOFbAB Plqv5WHADfMOA4NkT6PNVpBRBwQXMkOCjeNLQfXKPr QQXiTZAdTCRxRR7JDaByJAReMCQrBFWuCIVqGTGlpv7ALMFnTMF4JxY9LACqNXOoOOSvWRlmTKHiCLDw Gug4PGXlSFVkWA1WJoPfRUChBAZ4VXOrKGRgJJGbha5CNNYdDJZ8WyDmYMRnXJSlHZKbPKueCQDuCMLk PzArERWkKDSlFK1AMfAwBGKaICNxSAFtAMDxKEYwcy 4IVUEaFJT3ZrJ0KvXuNBFgGANuKIcdAKVfFTQfXuF9AQJgCGLcPP5LQuDxQSXhEGT5MQNpOGNuIGCaec 7DaHUhuIbfxv9YPEsPLs6HfSesGRHmKWexCk7nsIT6VSNwJNYQCi0UizCwPGDkGFLSJQqlNYHzPOX0ZQ K3HUyrKgAbTznoQgZzHThxVzgeRLC0VBM7BdFsNrP2 EmYpHZcfYLS7VgE3SWTeMzLsHbSzONBxXYxgEWgqANE+UP4bAOy+Cl5Jw7LueyX8fsGdECe6REN8Yu7M SYOOT0HUYf== ID Date Data Source [id number] 12/03/2020 12:10:15 PM EDT [facility] Name Value Range Interpretation Code Description Data Ellen rce(s) Supporting Document(s) ED Provider Note [facility] KGLBFn1tNeXDUmNf66/ZMMzaKIHnb5HhGUzpDBb3CHflSPRkZ0OhVGN2uR5qBNY2GEoWUuQaEyVdIJS0 lbm [file] DdEVvwZP9ILZR+Claudia+Yo4ICEVfYVAwFMXeIhXfUHLA TiAeB6SgL9AKv1EuX2YfQK39lEnnifIjIBmrWQ8JOM4eGYZoPXKVTR7VkONxkY2zzcG4FxFeLRZCVsRe O79yhLNeEHXtSSKaXJYfPh8NGORlZ9EhprMdqZsbgwBsKEVhWDOOCO7UNEkllkOwbGQlqUzpBV35uIvn QM7HOz6WAeXdKJ1cdo1VuFFqGa3QUEJ6OG2YITXkXG EiKSCxIKL1YPFpYzRyOQqeQWSiGSZaOLO7WQOfWELjCD6AGaUsZUMlRbI1QfKgNJDoUIVlpl8UMUPlRN A3GhA9PoBqFKJeWTFeNNynLZWaOSUxKKM8XQCcEWWtTN8RXsOoOFAiBFV7QlTnWUBvVFQafs1DCHZmAK UzXat2QUFiMUUjWIOlVLrmSOHeSNO6VQr5LNEdXJWd FX0HSpWtPSEkPWT9ZABnXGErEBQmlc5IEUOmKVGpOHV9XOXbMDIqFIChHKheCOEnIEY0DlGuSZNvLJUg ZO8VKkJeBHMgGJLgRXviOKKaGVPohq8AOYHvQNIhClF4HUHyZTGnMMStUVqhCBFsNES4MSP0EFAeXOEs AG8ZGuLmOXKdOMP9KWIfISNaVUJhdp7ONNEkEXZnHB v9BoSjLSMjUFGwHGrwJGDiLXHzEWziYXSaMWFwKS5TRtZmTVMwMsZ4ZEHtUIHmKTAjzh7ZHJSuKSPdBn L8SXOxOIOaQVWtMJqgZXRkDVW8TyY6OJJoKVUqVC4EVuChOHVfDkB3MZAqOAUaIYBjsb5BUJTpZGSkAA FaHzBmXQVkEAMtQGpoGOHpEIX6CHLdVRIvFJDzKX4V MxYcIIAnUfW7JSEfMTAeUNUxnm2WJXRfWMQuQxv6BtKwVDZsCQCcULthYYNyKOY0Igx6OOHrEIGtNO1N IuIlMIMxFrA4SQKbRAEoKQBuas6VNOXoZOZhQUN9PHPiNZHwLRNdMLseHEDcXVQ4Ava6KEUdKMFvCH0I KkCqYPElDXAcDxKaWOAbFAXxss7LPLYnXKG8GyL4SV IkVDVfWHNzAZvlENTqNOA1GAHaBQVuNYQaZJ9SRtPyEWUmGPR5WEUqUNPnBPJced4ZOCEtRJH3WzjyWn GcYBIvIOShIUalBSNjDOF7VQTnYYXsUQBfJV8DFgIxSRCpNHo0OXZuLQVmOPUiwt6OFQLrGKW5IDO1GG AlXVAtPWNcUKypHPWgXOR2ApKwHZXkAQJyTO0QMzNc IMMiYVDbEkRqRQRjXAFmkm2LSBFtNJC6DYPsOgLoBXHnPDRhLGcdDIKaNCIjMtYqMNQwOARcZJ6GAiIi DZSeUrLeARFxQBXcJLLpod5CNISwRTC0ScIkLQCqFTXbOISgJYeuOWAkUSYpWkRxHUIlMFAqYE2UHkNg SXGoHfF1McJcZANoFSHnfd2KUUUmFCE4MuJpGEHpRJ YvNGWeTQtpXABlVSXzWQDmJSIpJKUbEO5LNqRpQZVwXtXyIQHmSTJeFDCqof8UYEGbHYT3BYLiRPKiEJ TkHQYjXQroIGGjDXX4SpGoGSTvLGTmAL4BTbCbSSOgRxM7BIGnPLXtJQIvzk7PSLPvOTP8FUAmOVCdLN CvWJPdARbdLSUzIEA7TCQ5ZOPrILYdSG8KUyIoFEEu Ucv0KXUrMDOxDTNwgj1OXPMbNAJ8VeD7GzMzVZZvHGKtUOqeXAQlGSG5IHI3CDMcPPYcGB1NXdIbDQPb Vcg6QeisOJOyPGKdyl2DPKVzYQO5MKK7ZoCtGTNnKQQyRLoxOACdGBI8HkZzVRZcJVGjPC9BVxZnPRVd Izv5GGkeNWMeJUDned4SOHYuIPS6LZY6WqWbYTQiMW IgGPu7kfIlnYOxLMr0LQ8RG9EabjFaKgUTJk0Qk118YSRaFPNmDn4QJ3ncIq1yJYTfEAQYPb4RZWa8XQ XtKgE1TLIqSItoA6KxPWztNYgwOmWyAVG2VDC3QDZ+TYe4JnJhOLN1GCIyV0Z1KxG8U3A2J7K1JKGzYp QbGJi1Di1jQMZBZu4+XEdrsOHtfCqnEHAYBhY9BQU3ORtoMVQIAy0R ID Date Data Source [id number] 12/03/2020 01:05:43 AM EDT [facility] Name Value Range Interpretation Code Description Data Ellen rce(s) Supporting Document(s) Bicarbonate [Moles/volume] in Serum 24 mmol/L 22-29 [facility] Chloride [Moles/volume] in Serum or Plasma 101 mmol/L 98-107 [facility] Creatinine [Mass/volume] in Serum or Plasma 0.62 mg/dL 0.70-1.20 L [facility] Glucose [Mass/volume] in Serum or Plasma 120 mg/dL 70-140 [facility] Potassium [Moles/volume] in Serum or Plasma 4.2 mmol/L 3.4-5.1 [facility] Sodium [Moles/volume] in Serum or Plasma 134 mmol/L 136-145 L [facility] Urea nitrogen [Mass/volume] in Serum or Plasma 5 mg/dL 6-20 L [facility] Anion gap 3 in Serum or Plasma 8 mmol/L 8-15 [facility] Osmolality of Serum or Plasma by calculation 276 mosm/kg 275-300 [facility] Creatinine/Urea nitrogen [Mass Ratio] in Serum or Plasma 8 [facility] Calcium [Mass/volume] in Serum or Plasma 9.1 mg/dL 8.6-10.0 [facility] Glomerular filtration rate/1.73 sq M pre dicted among non-blacks [Volume Rate/Area] in Serum or Plasma by Creatinine-based formula (MDRD) >6 0 [facility] Glomerular filtration rate/1.73 sq M pre dicted among blacks [Volume Rate/Area] in Serum or Plasma by Creatinine-based formula (MDRD) >60 [facility] ID Date Data Source [id number] 12/03/2020 01:05:43 AM [facility] Name Value Range Interpretation Code Description Data Ellen rce(s) Supporting Document(s) Magnesium [Mass/volume] in Serum or Plasma 1.9 mg/dL 1.6-2.6 [facility] ID Date Data Source [id number] 12/03/2020 01:05:43 AM [facility] Name Value Range Interpretation Code Description Data Ellen rce(s) Supporting Document(s) Phosphate [Mass/volume] in Serum or Plasma 3.1 mg/dL 2.5-4.5 [facility] ID Date Data Source [id number] 12/03/2020 02:05:08 AM [facility] Value Range Interpretation Code Description Data Ellen rce(s) Supporting Document(s) Leukocytes [#/volume] in Blood by Automated count 2.1 10*3/uL 4-10 L [facility] Erythrocytes [#/volume] in Blood by Automated count 4.35 10*6/uL 4.6- 6.1 L [facility] Hemoglobin [Mass/volume] in Blood 12.8 g/dL 13.5-18 L [facility] Hematocrit [Volume Fraction] of Blood by Automated count 38.8 % 4 1-53 L [facility] Erythrocyte mean corpuscular volume [Entitic volume] by Auto mated count 89.1 fL 80-96 [facility] Erythrocyte mean corpuscular hemoglobin [Entitic mass] by Automated count 29.4 pg 27-33 [facility] Erythrocyte mean corpuscular hemoglobin concentration [Mass/volume] by Automated count 33.0 g/dL 32.0-36.0 [facility] distribution width [Ratio] by Automated count 13.2 % 11.5-14.5 [facility] Platelets [#/volume] in Blood by Automated count 199 10*3/uL 150-400 [facility] Differential cell count method - Blood [facility] Neutrophils/100 leukocytes in Blood by Automated count 90 % [facility] Lymphocytes/100 leukocytes in Blood by Automated count 7 % [facility] Monocytes/100 leukocytes in Blood by Automated count 3 % [facility] Neutrophils [#/volume] in Blood by Automated count 1.89 10*3/uL 1.8-7 .0 [facility] Lymphocytes [#/volume] in Blood by Automated count 0.15 10*3/uL 1.2-4 .0 L [facility] Monocytes [#/volume] in Blood by Automated count 0.06 10*3/uL 0-0.8 [facility] ID Date Data Source [id number] 12/02/2020 05:33:[address] [facility] [place] RENAL OR AORTA COMPLETE [id number] RE SULTInterpreted by:Chen Preciado, DOCLINICAL HISTORY: Left [...] rce(s) Supporting Document(s) ID Date Data Source [id number] 12/02/2020 12:20:43 PM EDT [facility] Name Value Range Interpretation Code Description Data [facility] rce(s) Supporting Document(s) ED Provider Note [facility] LGWKQb2tVdVMLkMz76/FSFrrZHHxw5JuKQmqTTl4DTzhGXAxN0MsFSD3fE7dCAR7VQsOEoGiZmWaNFM3 lbm [file] oHZpVWjuCX7FOIH+Claudia+Pw5XPDVrKOViADAhQbJmRW HKVvVbB4FmU0LNo9GwX4NzHP27wEexoeQfPGetTP7NEZ1hETPdNAACMM7RiGLuxO5hrcO5UXCaOJHKJj JaG31ffSYiYHTeJZBqELVuTj2FGVErK4EeleAgfGpupmFlFSPzXFIFWB5KOPvgooFwkSRdrNavNE87cQ uxWI2BUl3LVrJtQN1ern5IdQLcPu9BVYY0Vt4UDIHd MIFjNOSdEER8TECrDcVoONdtOBNwPMWlGNO8GBFiPYWyYG9HUrZdURHwSPV4KrPoAHHrEKGhab7PCJFm PTK1NfE3HJCfOJXvFETlREqyPSPzESEbYNF2OXXzXVJrYD9XZaUiYJMsWSY3NwqdQDCoKSZpqj8TBJEh VIQnObHwFBApSXLrUZSmCWqgEDReRZO9KHsgENUoPD PsZQ5ZFgOrABRyEGauVnGdCPCqOHUgdz0GLAVnMMSyFWM3TERvXNApXFYdOTkvAOTiRDXiOVmrHMYxQK WwPL5CHuJuYXDtOGD3BSibWZQfUFZblt5MVIVyDLZhNeZ0PDUmKVSbSCYdPRyoGKMnDEK1Lgc3EBAdXG HzMI0IHdOtHNMsGYL4GIXzNFUeSFXtou1XBQBhIPSk NUBuMNOrNAWxBXQzMOlcJTLaFKX6MKYqLNVdQZXyMK0FOxRrVHHbRbB8GKLhHDYgMVJuhh6EQJRhHCIh GPc9WpPqCQXgKBLkPDkwSVOfXBP3NDblARViIEGmDZ9QRjHwHWCyVxV5GQsjQGZxXJPbqc6TXWBgCXBy QtB3IfPuLTPbUAKoGIjnGDTpZMP5QJu3NUPyKGIfWN 5JSfUrECYoWvu0KZalZBHoHXXmor9LNSFtWAMxTrD7SpDlWWKzCLPkZAoyLYQhGIJ9VPR4WZYeYTUhOI 6LMkBtMHJsIsa5VCopACEtYDQvgg1XTROuDKIbNQl1TZBvKRShEYHcNVcqDIByVUF9LTi8XLIuSTTsUC 5RGxAyJWPkWwRpQaloOXPkIFAnwb7KLBFbJQSxOHTx WRAcJQDhRDVfZXbaXKQqACXlSJC1TQRiSBZsXU2MMaBxZIMaKJA5BRolJFBfIZEdzl6YLTFlJIB7CgZ2 RdJeRZIvYYMfMMbnEWKvZSKuBMhtYMQzUAFpPV5UFoTxOSDmMUN9JpScBKEjCYVmzq0EDCHlXYJ5Mbh6 TUBfKJOoFOUmXIpeIMKsOBOfFRLfSNTtAVCcOM6OXs QtXVJbMPPkXEVgHPKnTTMgac2VSYSmOAC7QWW2SZWhCGCxQVQsVNrhJBIpNFI4BGJnLBWnZCQrOE2SDy ApQHOfACJdNxYcASIsISPedi4DMJRySNO6MXHlSSKvMCVfUYAfPFxoNITqVOM0FWI8XNHqTALgIM6LWx NdAVJqCHp1JHRbEBRtFMUgyn7BNWOtFBL8EnDbDlKo XYXmILQiTAetWWZmGJV2ZiArLPSpGJKpLX0JGtKdRTNsRTm0SgCuVPJsGOGzeg6KVCTfTLI5YYWeKrKt YFJoCMUeFTvmPMVpFXF9IqE3OMMcDZSxJU9PNjSqOQOhXZvqGTOwHLZvFFAaju9CRQGiZWI2BCH9GEZy ONNeUIBdCCiyXQHsJWD4RzApVDAgDGBiZR8FVrQcMZ PiSLw8NPHyXPZiPJDlvu5DBPYfIPP6BJA1HiInAMEpAFOzFYbiRZEsFQS6SqM6KHXqKDGgHK1BLkDtPF HyTUt8FfAuNHYvQCEnqv8UfLPooMqhma2HRAiCSe1UtXlpBIL4KGugJi9peYS5PhBfGVBGHd2UrzAcZY FiGWTGYMsxBVBcHCG3QcQnOvB6QBobKBR6WVCbPgX8 NXH5AbTdDrfdCeYqWnL8PZhsQsNmKVkpZAHlWFS4SsUaVbhvWhRzZMPqTNR3RSK+NA8tKGl+Nc1Le8Vs jgI3oySsWAz8ZXE0Zi0IKCLSI0NMXa== ID Date Data Source [id number] 12/02/2020 12:01:37 PM EDT [facility] Name Value Range Interpretation Code Description Data Ellen rce(s) Supporting Document(s) Color of Urine [facility] Clarity of Urine [facility] Specific gravity of Urine by Refractometry automated 1.010 1.003 -1.030 [facility] pH of Urine by Automated test strip 5.0 5.0-8.0 [facility] Protein [Mass/volume] in Urine by Automated test strip Neg [facility] Glucose [Mass/volume] in Urine by Automated test strip Neg [facility] Ketones [Mass/volume] in Urine by Automated test strip 20 mg/dL Neg [facility] Bilirubin.total [Presence] in Urine by Automated test strip Negative [facility] Hemoglobin [Presence] in Urine by Automated test strip Neg [facility] Leukocyte esterase [Presence] in Urine by Automated test strip Negative [facility] Nitrite [Presence] in Urine by Automated test strip Negati ve [facility] Leukocytes [#/area] in Urine sediment by Automated count 0 /HPF 0 -5 [facility] Erythrocytes [#/area] in Urine sediment by Automated count 0 /HPF 0-3 [facility] Service comment [facility] ID Date Data Source [id number] 12/02/2020 11:49:36 AM EDT [facility] Name Value Range Interpretation Code Description Data Ellen rce(s) Supporting Document(s) Leukocytes [#/volume] in Blood by Automated count 5.4 10*3/uL 4-10 [facility] Erythrocytes [#/volume] in Blood by Automated count 4.26 10*6/uL 4.6- 6.1 L [facility] Hemoglobin [Mass/volume] in Blood 12.7 g/dL 13.5-18 L [facility] Hematocrit [Volume Fraction] of Blood by Automated count 38.1 % 4 1-53 L [facility] Erythrocyte mean corpuscular volume [Entitic volume] by Auto mated count 89.4 fL 80-96 [facility] Erythrocyte mean corpuscular hemoglobin [Entitic mass] by Automated count 29.8 pg 27-33 [facility] Erythrocyte mean corpuscular hemoglobin concentration [Mass/volume] by Automated count 33.4 g/dL 32.0-36.0 [facility] Erythrocyte distribution width [Ratio] by Automated count 12.9 % 11.5-14.5 [facility] Platelets [#/volume] in Blood by Automated count 213 10*3/uL 150-400 [facility] Differential cell count method - Blood [facility] Neutrophils/100 leukocytes in Blood by Automated count 75 % [facility] Lymphocytes/100 leukocytes in Blood by Automated count 13 % [facility] Monocytes/100 leukocytes in Blood by Automated count 9 % [facility] Eosinophils/100 leukocytes in Blood by Automated count 3 % [facility] Basophils/100 leukocytes in Blood by Automated count 0 % [facility] Neutrophils [#/volume] in Blood by Automated count 4.06 10*3/uL 1.8-7 .0 [facility] Lymphocytes [#/volume] in Blood by Automated count 0.69 10*3/uL 1.2-4 .0 L [facility] Monocytes [#/volume] in Blood by Automated count 0.48 10*3/uL 0-0.8 [facility] Eosinophils [#/volume] in Blood by Automated count 0.17 10*3/uL 0-0.5 [facility] Basophils [#/volume] in Blood by Automated count 0.02 10*3/uL 0-0.2 [facility] Nucleated erythrocytes/100 leukocytes [Ratio] in Blood by Automated count 0 /100{WBCs} 0-0 [facility] ID Date Data Source [id number] 12/02/2020 12:11:19 PM EDT [facility] Name Value Range Interpretation Code Description Data Ellen rce(s) Supporting Document(s) Albumin [Mass/volume] in Serum or Plasma by Bromocresol green (BCG) dye binding method 3.9 g/dL 3.5-5.2 [facility] Bilirubin.total [Mass/volume] in Serum or Plasma 1.1 mg/dL <1.2 [facility] Calcium [Mass/volume] in Serum or Plasma 8.6 mg/dL 8.6-10.0 [facility] Chloride [Moles/volume] in Serum or Plasma 104 mmol/L 98-107 [facility] Creatinine [Mass/volume] in Serum or Plasma 0.70 mg/dL 0.70-1.20 [facility] Glucose [Mass/volume] in Serum or Plasma 112 mg/dL 70-140 [facility] Alkaline phosphatase [Enzymatic activity/volume] in Serum or Plasma 64 U/L 40-129 [facility] Potassium [Moles/volume] in Serum or Plasma 3.9 mmol/L 3.4-5.1 [facility] Protein [Mass/volume] in Serum or Plasma 6.0 g/dL 6.4-8.3 L [facility] Sodium [Moles/volume] in Serum or Plasma 137 mmol/L 136-145 [facility] Aspartate aminotransferase [Enzymatic activity/volume] in Serum or Plasma 11 U/L <40 [facility] Urea nitrogen [Mass/volume] in Serum or Plasma 4 mg/dL 6-20 L [facility] Osmolality of Serum or Plasma by calculation 282 mosm/kg 275-300 [facility] Creatinine/Urea nitrogen [Mass Ratio] in Serum or Plasma 6 [facility] Bicarbonate [Moles/volume] in Serum 25 mmol/L 22-29 [facility] Alanine aminotransferase [Enzymatic activity/volume] in Seru m or Plasma 7 U/L <41 [facility] Anion gap 3 in Serum or Plasma 8 mmol/L 8-15 [facility] Glomerular filtration rate/1.73 sq M pre dicted among non-blacks [Volume Rate/Area] in Serum or Plasma by Creatinine-based formula (MDRD) >6 0 [facility] Glomerular filtration rate/1.73 sq M pre dicted among blacks [Volume Rate/Area] in Serum or Plasma by Creatinine-based formula (MDRD) >60 [facility] ID Date Data Source [id number] 12/02/2020 02:02:07 PM EDT [facility] Name Value Range Interpretation Code Description Data Ellen rce(s) Supporting Document(s) Cancer Ag 19-9 [Units/volume] in Serum or Plasma 121 U/mL <35 H [facility] ConfirmedThis test uses [place] CA 19-9 el ectrochemiluminescent immunoassay. Results obtained with different test methods or kits cannot be used interchangeably. CA 19-9 is useful in monitoring pancreatic, hepatobiliary, gastric, hepatocelllular, and colorectal cancer. CA 19-9 value regardless of level, should not be interpreted as absolute evidence of the presence or absence of malignant disease. ID Date Data Source [id number] 12/02/2020 04:09:24 AM [facility] Name Value Range Interpretation Code Description Data Ellen rce(s) Supporting Document(s) Phosphate [Mass/volume] in Serum or Plasma 2.3 mg/dL 2.5-4.5 [facility] ID Date Data Source [id number] 12/02/2020 04:48:02 AM [facility] Name Value Range Interpretation Code Description Data Ellen rce(s) Supporting Document(s) Leukocytes [#/volume] in Blood by Automated count 5.2 10*3/uL 4-10 [facility] Erythrocytes [#/volume] in Blood by Automated count 4.27 10*6/uL 4.6- 6.1 [facility] Hemoglobin [Mass/volume] in Blood 12.5 g/dL 13.5-18 L [facility] Hematocrit [Volume Fraction] of Blood by Automated count 38.1 % 4 1-53 [facility] Erythrocyte mean corpuscular volume [Entitic volume] by Auto mated count 89.1 fL 80-96 [facility] Erythrocyte mean corpuscular hemoglobin [Entitic mass] by Automated count 29.3 pg 27-33 [facility] Erythrocyte mean corpuscular hemoglobin concentration [Mass/volume] by Automated count 32.9 g/dL 32.0-36.0 [facility] Erythrocyte distribution width [Ratio] by Automated count 12.8 % 11.5-14.5 [facility] Platelets [#/volume] in Blood by Automated count 201 10*3/uL 150-400 [facility] Differential cell count method - Blood [facility] Neutrophils/100 leukocytes in Blood by Automated count 67 % [facility] Lymphocytes/100 leukocytes in Blood by Automated count 20 % [facility] Monocytes/100 leukocytes in Blood by Automated count 8 % [facility] Eosinophils/100 leukocytes in Blood by Automated count 5 % [facility] Basophils/100 leukocytes in Blood by Automated count 0 % [facility] Neutrophils [#/volume] in Blood by Automated count 3.45 10*3/uL 1.8-7 .0 [facility] Lymphocytes [#/volume] in Blood by Automated count 1.06 10*3/uL 1.2-4 .0 [facility] Monocytes [#/volume] in Blood by Automated count 0.43 10*3/uL 0-0.8 [facility] Eosinophils [#/volume] in Blood by Automated count 0.25 10*3/uL 0-0.5 [facility] Basophils [#/volume] in Blood by Automated count 0.01 10*3/uL 0-0.2 [facility] Nucleated erythrocytes/100 leukocytes [Ratio] in Blood by Automated count 0 /100{WBCs} 0-0 [facility] ID Date Data Source [id number] 12/02/2020 04:55:04 AM EDT [facility] Name Value Range Interpretation Code Description Data Ellen rce(s) Supporting Document(s) Bicarbonate [Moles/volume] in Serum 21 mmol/L 22-29 [facility] Chloride [Moles/volume] in Serum or Plasma 100 mmol/L 98-107 [facility] Creatinine [Mass/volume] in Serum or Plasma 0.66 mg/dL 0.70-1.20 [facility] Glucose [Mass/volume] in Serum or Plasma 87 mg/dL 70-140 [facility] Potassium [Moles/volume] in Serum or Plasma 3.7 mmol/L 3.4-5.1 [facility] Hemolyzed Sodium [Moles/volume] in Serum or Plasma 134 mmol/L 136-145 [facility] Urea nitrogen [Mass/volume] in Serum or Plasma 6 mg/dL 6-20 [facility] Anion gap 3 in Serum or Plasma 12 mmol/L 8-15 [facility] Osmolality of Serum or Plasma by calculation 275 mosm/kg 275-300 [facility] Creatinine/Urea nitrogen [Mass Ratio] in Serum or Plasma 9 [facility] Calcium [Mass/volume] in Serum or Plasma 8.4 mg/dL 8.6-10.0 [facility] Glomerular filtration rate/1.73 sq M pre dicted among non-blacks [Volume Rate/Area] in Serum or Plasma by Creatinine-based formula (MDRD) >6 0 [facility] Glomerular filtration rate/1.73 sq M pre dicted among blacks [Volume Rate/Area] in Serum or Plasma by Creatinine-based formula (MDRD) >60 [facility] ID Date Data Source [id number] 12/01/2020 09:28:00 PM EDT [facility] [address] [place] [address] RESPIRATORY CARE REPORT ==== ---------NAME------- NUMBER SEX AGE ADMIT DISC. XRAY# F/C TYPEREID SHERRIE Gaviria [id number] M 35 11/23/20 11/24/20 [id number] BB1 E/R DATE OF : 1985 M/R# [id number] #: [id number] VT-20 LOCATION: EMERGENCY DEPT [facility] [id number] COMPLE TE:11/24/20 01:49 AJP [id number] PHYSICIAN: LEXUS VÁSQUEZ Name Value Range Interpretation Code Description Data Ellen rce(s) Supporting Document(s) ID Date Data Source [id number] 12/01/2020 04:59:09 PM EDT [facility] Name Value Range Interpretation Code Description Data Ellen rce(s) Supporting Document(s) Consultation [facility] UMFDJq5kZxDLGmRv45/ITAdcUQUck6PnPDlcEWb6DIzvRGVuG1GpDDN4lH7dMNN1DUyPUbCtOhNjXDX6 lbm [file] gx/5Z3KioXiAr+tuxor35Zj3t40LjZKSjXZBSh+ZYdaqOcFfdmrvqBlk3PavgTl1XahuHSiCf/OM/+SERVICE SUPPORT REPRESENTATIVE [file] AgICAgICAgICAgICAgICAgICAgICAgICAgICAgICAgICAgICAgICAgICAgICAgDQogICAgICAgICAgIC AgICAgICAgICAgICAgICAgICAgICAgICAgICAgICAg ICAgICAgICAgICAgICAgICAgICAgICAgICAgICAgICAgICAgICAgICAgICAgICAgICAgICAgICAgDQog ICAgICAgICAgICAgICAgICAgICAgICAgICAgICAgICAgICAgICAgICAgICAgICAgICAgICAgICAgICAg ICAgICAgICAgICAgICAgICAgICAgICAgICAgICAgIC AgICAgICAgDQogICAgICAgICAgICAgICAgICAgICAgICAgICAgICAgICAgICAgICAgICAgICAgICAgIC AgICAgICAgICAgICAgICAgICAgICAgICAgICAgICAgICAgICAgICAgICAgICAgICAgDQogICAgICAgIC AgICAgICAgICAgICAgICAgICAgICAgICAgICAgICAg ICAgICAgICAgICAgICAgICAgICAgICAgICAgICAgICAgICAgICAgICAgICAgICAgICAgICAgICAgICAg DQogICAgICAgICAgICAgICAgICAgICAgICAgICAgICAgICAgICAgICAgICAgICAgICAgICAgICAgICAg ICAgICAgICAgICAgICAgICAgICAgICAgICAgICAgIC AgICAgICAgICAgDQogICAgICAgICAgICAgICAgICAgICAgICAgICAgICAgICAgICAgICAgICAgICAgIC AgICAgICAgICAgICAgICAgICAgICAgICAgICAgICAgICAgICAgICAgICAgICAgICAgICAgDQogICAgIC AgICAgICAgICAgICAgICAgICAgICAgICAgICAgICAg ICAgICAgICAgICAgICAgICAgICAgICAgICAgICAgICAgICAgICAgICAgICAgICAgICAgICAgICAgICAg ICAgDQogICAgICAgICAgICAgICAgICAgICAgICAgICAgICAgICAgICAgICAgICAgICAgICAgICAgICAg ICAgICAgICAgICAgICAgICAgICAgICAgICAgICAgIC AgICAgICAgICAgICAgDQogICAgICAgICAgICAgICAgICAgICAgICAgICAgICAgICAgICAgICAgICAgIC VvLKJnCOPkAFFaXNOwUNObDLSwFVRyXPGbWHGoAJVzRKOyNUTsQYAbNVZyQHZpGYLbUUXqPKZbLEx3I5 thCUPiAHRcQB0yWNq6Fq7+BExRBeTyVLP1tgVnxK9K JC4tt0GgVUwzCXTdn9JzTHw8JO2RHKYsDAdtVF6EESueay8BLHOvLQKwaBZVf7wdKwPdPHB4HPBoSfji KN2HGNWmP3yzniExSYFbSENGMLdyWVHCDNxxZOYHZNNaYVPhCyXgQgDzCNYoTZItTYYPXFK4AKAaBvWb KDxaRR6Gw8VfkBG0QYz+Ku2XDI6vi4HoQFxaQzCpZU 2wsp7SUMwIFdAuT4MvcjY6GGF2FEXbWf7YIMCxZZXeeVXkLZVzDGDAFnYtB6HwyX40TOWRTa2+DQplbm ZcRtiBBgT5MOAyl8LnGFb6NE3AVVCuPGd7jSKwG03ma4EpsYRaZuqyJSxmLYCdZVTonpfxJVVzBALtAY WuPU3gNOZnYNW8DaYxLAEVVL7JENTvARDkaDOpPNOc TLCYUG5EVZaqIUY0FDEcgdAvqUPfYAzrUY3AIAMzezVvBvpiUJJVYMc+Rj8QMC4uc9EkJAxyVOSlAM7u mt9NTUuVRwCoK6I0xJMbM8G3IVqrGv7NNOCoOHGdPkRbHPQUVHffZA1ORK1unqG6GI4EeNPpNPOqCFKt gQZmAOb7R14qqIOtHUuzOH5JNJX+Claudia+Up0OKVSjIS AtWSUzSoCrCIJIZxVrC1JlG1XQm1EoU1PzWL25cRvtfmUoMHtiIN3TEO7dFCDhAFQYRB6PtKAadF1kab XsCnIzHWVUVbTnO06wjGYwXQNkERA0RUYpZb7ICUGgN9QlxsZesTnlxxRcRIMrELHBSC1VQBoyatAuyP QjkQgqLP36uIumBV3RZm2KPnTvRE4imf1OcUXdAb0A CRA3MB1DRDEoSCRwIOSnTVX1DINaYjQkBNgwMRLgPCLsTTL1EEFzHSFkLI8KXbRjYDUeHvi8FmaaVUOp HGRuch5SDBKfJJD3NZSyYPOxMPMeMOJwFEyaOVDjPSSwYDZ1LGAwIAGvMF3CBmHhNSPtOFZ4LQZlIVIy IEAzfe2XDSBnBYLrAyf5LYFhFFLgWLEbAPdiELVmVX Z9SOF7TDIdQDBxQM5OCdQhRMRkPPxyWYVvHWAuJRZguw7WLQFbSESfWFH3WeCiONZxOZWjUQyhNIZfAK P0WPjqCRYrCJThWZ0FRzJmMLYyLFYtTcKjDSMtJLCzlq2EGOIbULLdRqT8QbBqJMUaIDGtSWygYBZlAX G8WuD0WDOfKCYbSL4HKkNuEKIuJGV0DtZvARJkDJXd ex8LJFGpCOXvWTi4JpBtKKWbRSNkJWvwOGGqEVI3DDu1RCWsQFFiBZ7XMrPlFIXaYjH8KSTmPUOoNOQn zw3IAVMqKLLqUyRgPAKoCOEkOVSbAXmuLIHfNFViHTgcVITgNRLyDB6SShSnACJeJxBkNsdqFYNuHHOo sh3WJDGsNVXyNeL0HLNgOVApNHItCTumONMhQJL8BT X7LZHrSAOxSZ9BEoLoFUXbRwV8CTKzLMIqEJNqws1ZKAQqKXCoDGf9QFJdOSMtOWCdCCeaHGCrDFZ0Ev U9MLMnERAmEX2XMgOhXURtCvO7IAXrBLHoIOZiek5YGHAbBEXrFgYfXJWzIAVrSFUhYCgcLGAqBXH3LK P6VHOySGGkHM7GPkHwVERsCje2OXTiCIGgCTOjis5D ZZVrUJPjGYV0HQHkWHNyXXOhCYsfYODpPGV5MqyqFSGtYWVuRQ0ZDmWdNDApDqb3UdNvNHEiJWTdde4V OTUlUFQuGBY0CIKzNUVtZNNaAWbrWLElGWD7NPZ1BURnMWGiLM5BWbJrTDSnDft4ZSUqCFAfFVRkse4J KKNcGUK7ACW5WIEwNUBmPLLgRDlfCIDnKZPlZyJ0VY FrEKDbPH4YKbWdDPFyVPB1LndqCLUsTXRdkg8MEAZjPLI8WQx7NoXyPYUdEBOeUMa1dhXygQDcTCx2FP 5AW7DktbBoWBTWXh0Wj525NSX6YTAeOv2FQ0udSb1yPYVyOCJMXu1DAZm2QOw3BhWyYZIcBMT5E6SbI5 U8NJMyFnR4FHP8KJo9ORQ+IDwxODhmNmQwMWFlMzQ3 KHJ4IQs9RpZkWJBtCUZ2IkkeRB2gYANLKy1+LNbhoYYymAgfRIXKZvSaSBGqMEchVMADFc6J ID Date Data Source [id number] 12/01/2020 03:38:04 PM EDT [facility] Name Value Range Interpretation Code Description Data Ellen rce(s) Supporting Document(s) Consultation [facility] JYGLMt2yYlXIHqRn55/MHPzgXDMoh2PdZMlpLLl1FHkwWNKnH6UtPGR0oI2dMIL9RBxLQgEbFcRaZPS9 lbm [file] AgICAgICAgICAgICAgICAgICAgICAgICAgICAgICAgICAgICAgICAgICAgICAgICAgICAgICAgICAgIC AgDQogICAgICAgICAgICAgICAgICAgICAgICAgICAg ICAgICAgICAgICAgICAgICAgICAgICAgICAgICAgICAgICAgICAgICAgICAgICAgICAgICAgICAgICAg ICAgICAgICAgICAgDQogICAgICAgICAgICAgICAgICAgICAgICAgICAgICAgICAgICAgICAgICAgICAg ICAgICAgICAgICAgICAgICAgICAgICAgICAgICAgIC AgICAgICAgICAgICAgICAgICAgICAgDQogICAgICAgICAgICAgICAgICAgICAgICAgICAgICAgICAgIC AgICAgICAgICAgICAgICAgICAgICAgICAgICAgICAgICAgICAgICAgICAgICAgICAgICAgICAgICAgIC AgICAgDQogICAgICAgICAgICAgICAgICAgICAgICAg ICAgICAgICAgICAgICAgICAgICAgICAgICAgICAgICAgICAgICAgICAgICAgICAgICAgICAgICAgICAg ICAgICAgICAgICAgICAgDQogICAgICAgICAgICAgICAgICAgICAgICAgICAgICAgICAgICAgICAgICAg ICAgICAgICAgICAgICAgICAgICAgICAgICAgICAgIC AgICAgICAgICAgICAgICAgICAgICAgICAgDQogICAgICAgICAgICAgICAgICAgICAgICAgICAgICAgIC AgICAgICAgICAgICAgICAgICAgICAgICAgICAgICAgICAgICAgICAgICAgICAgICAgICAgICAgICAgIC AgICAgICAgDQogICAgICAgICAgICAgICAgICAgICAg ICAgICAgICAgICAgICAgICAgICAgICAgICAgICAgICAgICAgICAgICAgICAgICAgICAgICAgICAgICAg ICAgICAgICAgICAgICAgICAgDQogICAgICAgICAgICAgICAgICAgICAgICAgICAgICAgICAgICAgICAg ICAgICAgICAgICAgICAgICAgICAgICAgICAgICAgIC AgICAgICAgICAgICAgICAgICAgICAgICAgICAgDQogICAgICAgICAgICAgICAgICAgICAgICAgICAgIC AgICAgICAgICAgICAgICAgICAgICAgICAgICAgICAgICAgICAgICAgICAgICAgICAgICAgICAgICAgIC RoUBZiWAClJWFyPIx9H3kdXHTvJWFnXC8wSXs7Sl1+ HOjZVeVlIAK2mvFlxA6SZT7af1PwRAjdVDIhl9TjIYj6WJ0RGFElOTdwAG1YQWoqrs6YKWFdGTLmkNHK c5bsSeAsGAL5TZNxOrplRY8VKSCoQ3qoduMgTKZxKCSJJJhpXHUVSLuoSEUBHIQpCPDaPqQnIaOoTGDl KOKsITISOM6KTyRmW8XvqP92MGAPYc9+DQplbmRvYm xEOoO7RPKih5XcURu7DE4OBJFmNxrbs8CtSzLmPUTLMGhmBI3KALM9OGI0YJNoYp2ZLWUqQ199lkBqHN 3UKe9QXdTfDI3ujy1WVnWtKRJsWfsTNqn9ZAdhFH7QhXXaLMfSe84uvNf9qfChqDCHsTD1dMIyAiEMyJ xnvrorLGAoQFZwBGDmSM3gJOAqQPOvUiY3MVVKXW5P QIIoSMExmAUlWTVyPIBXEG7AJBiiLVY8IHZzazSvrYJpXNqjLU3KYEStbaRvJlRjYEQAPTc+Xb9ZXR4q z8WiEHxnMwEaNO8zvw2QIQrEJxPwT2P8tAVtK8U8MDasHi5KIJBqZNTcXkWgCOBQRVgfLO2DRR0btjI2 AO4BhUDtPQXbIYQpaJUaJEu9G81rnTSbXQsmBJ9SSO A+Claudia+El8NMNKuVKKvPTPaTlTsZBQMNoWmD3WbL2LFg6GrL6XyDL42xCpcseWhBYlrEM2FRK4wQCDqKW VIQG1OcXHvwF8dqsVmNPXcOEHGXoSeY40csQKbQFShNYG1ONWqRj7YVTHqE9EpyeBcnHvxeyCyGDBkLE TLQG9LYTfijlUxaRXwwGerKM36hXkkZZ2DCg7REaKf TU2vkw6ZcNIzVz1PKSBrMC2EYKNqJVQrDQNqYIK9MYIhPeYbLOsqTKIvJEOiRQJ8SGUnKVEfDK4MHzVr VJJvWrF3TQSkEPHzQEKtic0RZQNzKGTzNBWtLBGlRIFqTHQcGPrkSJOvTMHiNCD8GOYzJTDcEP5TMqGy LDMeHZI9JQNjZANyWTWnfz4PLYQpFQPlQyh3WhTjBH PhYYTmCSfvFYRdSJY7DTf2UJHfHRLdVW7LPtMoIYFjPDAyELkcEBEuWTGzlb7RNYUvJHRwUXZ0YLRaDK ChRSGtQItpVONfOFE6BlMqNORsGHIqZX6TOsIrGXNmCZU1TjTzBPRjIERoxs7WRATtEYKiBptnFkHeZB AxNUOlTMlbUGHzXAR3WzMxZMBiRAObRD3SBjBxJSNn QMP8QXetYHGbBBCeuy4XOJByUXGlLLLoDtChFELlEKZuQIhkOAVxPZI4NmT0DCSfJWChBY7OYrWlDYJa AQm3QPucTGJtGFMlvo4LAEAkDNAqRBu3QxHjAJPjZSHwRKbpNQMaXYCaGVA1LAJjEJBnIB5OBiRyLTZz SpDjVfkfDQPxSSSltv6XPJQsHCNsCZYeQFDdWJNeWG JzHXheGFRxMDPiCUI1LLMeKKOpDF2GPaKzGZCjWuIcBorfVBAwDDQomp2UGNVzCEXoNzS0RHUiAZQrSO RjSFsjDPBjTQIkLzB9BJDlCBWpNF0PHpKtYKHbGgRsWGqlIHIbIWKqde8TFMMgISTdHPKhWzDkKFBsTG IpETbcZKVnXLJ7JnAiGXIxIAMbCM3OWrHsOSSzJdI5 JwLsIGDoVHZmlu3FTBLhYXQpPQHeYIEsUXGvKEMrXQidFHOdROV1ZCWeFTRgUXGtRC2UMmTfNCPnLyYs OVLiXUXdSACsxm5XDBJwUCRkCtGaOYUhCYHvRDZaPAwfKIRsBJV6BVKdEVXfWOUeRH4LDqAkIRNxGwsw XgIsCTSeROQyiv1JZOUiSDOkTWAjMaXsAWOcTSNrET vpTBZyCDT6KYA1CGWnKUUbKF4VPrDxNQgtZKNPMpd3ACgcP9c5YXFoHW9FA9Nsj2EfZjagVBUMPAtuTX 2kicHnIKSjFg6CV4xGFcgxEvF7YFMsGPEvFDGgBUGfZOkfLxdkPyRuQdUtGcH8Sl3aMCApFqUmAEC1IM HiHIT2FIUlQAKiP4UmQBFmBsCnJPf3SyYmPZ2RVb7WHtN7FKW8zHVxAf7PBif5GEOMZkBgGS8FQVi= ID Date Data Source [id number] 12/01/2020 03:22:17 PM EDT [facility] Name Value Range Interpretation Code Description Data Ellen rce(s) Supporting Document(s) Leukocytes [#/volume] in Blood by Automated count 5.1 10*3/uL 4-10 [facility] Erythrocytes [#/volume] in Blood by Automated count 4.29 10*6/uL 4.6- 6.1 L [facility] Hemoglobin [Mass/volume] in Blood 12.8 g/dL 13.5-18 L [facility] Hematocrit [Volume Fraction] of Blood by Automated count 38.5 % 4 1-53 L [facility] Erythrocyte mean corpuscular volume [Entitic volume] by Auto mated count 89.8 fL 80-96 [facility] Erythrocyte mean corpuscular hemoglobin [Entitic mass] by Automated count 29.8 pg 27-33 [facility] Erythrocyte mean corpuscular hemoglobin concentration [Mass/volume] by Automated count 33.2 g/dL 32.0-36.0 [facility] Erythrocyte distribution width [Ratio] by Automated count 13.0 % 11.5-14.5 [facility] Platelets [#/volume] in Blood by Automated count 212 10*3/uL 150-400 [facility] Differential cell count method - Blood [facility] Neutrophils/100 leukocytes in Blood by Automated count 69 % [facility] Lymphocytes/100 leukocytes in Blood by Automated count 19 % [facility] Monocytes/100 leukocytes in Blood by Automated count 7 % [facility] Eosinophils/100 leukocytes in Blood by Automated count 5 % [facility] Basophils/100 leukocytes in Blood by Automated count 0 % [facility] Neutrophils [#/volume] in Blood by Automated count 3.50 10*3/uL 1.8-7 .0 [facility] Lymphocytes [#/volume] in Blood by Automated count 0.97 10*3/uL 1.2-4 .0 L [facility] Monocytes [#/volume] in Blood by Automated count 0.36 10*3/uL 0-0.8 [facility] Eosinophils [#/volume] in Blood by Automated count 0.23 10*3/uL 0-0.5 [facility] Basophils [#/volume] in Blood by Automated count 0.01 10*3/uL 0-0.2 [facility] Nucleated erythrocytes/100 leukocytes [Ratio] in Blood by Automated count 0 /100{WBCs} 0-0 [facility] ID Date Data Source [id number] 12/01/2020 03:23:04 PM [facility] Value Range Interpretation Code Description Data Ellen rce(s) Supporting Document(s) Magnesium [Mass/volume] in Serum or Plasma 2.0 mg/dL 1.6-2.6 [facility] ID Date Data Source [id number] 12/01/2020 03:23:04 PM EDT [facility] Name Value Range Interpretation Code Description Data Ellen rce(s) Supporting Document(s) Phosphate [Mass/volume] in Serum or Plasma 1.8 mg/dL 2.5-4.5 L [facility] ID Date Data Source [id number] 12/01/2020 03:23:04 PM EDT [facility] Name Value Range Interpretation Code Description Data Ellen rce(s) Supporting Document(s) Albumin [Mass/volume] in Serum or Plasma by Bromocresol green (BCG) dye binding method 4.0 g/dL 3.5-5.2 [facility] Bilirubin.total [Mass/volume] in Serum or Plasma 1.5 mg/dL <1.2 H [facility] Calcium [Mass/volume] in Serum or Plasma 8.4 mg/dL 8.6-10.0 L [facility] Chloride [Moles/volume] in Serum or Plasma 104 mmol/L 98-107 [facility] Creatinine [Mass/volume] in Serum or Plasma 0.79 mg/dL 0.70-1.20 [facility] Glucose [Mass/volume] in Serum or Plasma 159 mg/dL 70-140 H [facility] Alkaline phosphatase [Enzymatic activity/volume] in Serum or Plasma 68 U/L 40-129 [facility] Potassium [Moles/volume] in Serum or Plasma 3.9 mmol/L 3.4-5.1 [facility] Protein [Mass/volume] in Serum or Plasma 6.0 g/dL 6.4-8.3 L [facility] Sodium [Moles/volume] in Serum or Plasma 137 mmol/L 136-145 [facility] Aspartate aminotransferase [Enzymatic activity/volume] in Serum or Plasma 11 U/L <40 [facility] Urea nitrogen [Mass/volume] in Serum or Plasma 11 mg/dL 6-20 [facility] Osmolality of Serum or Plasma by calculation 287 mosm/kg 275-300 [facility] Creatinine/Urea nitrogen [Mass Ratio] in Serum or Plasma 14 [facility] Bicarbonate [Moles/volume] in Serum 22 mmol/L 22-29 [facility] Alanine aminotransferase [Enzymatic activity/volume] in Seru m or Plasma 6 U/L <41 [facility] Anion gap 3 in Serum or Plasma 11 mmol/L 8-15 [facility] Glomerular filtration rate/1.73 sq M pre dicted among non-blacks [Volume Rate/Area] in Serum or Plasma by Creatinine-based formula (MDRD) >6 0 [facility] Glomerular filtration rate/1.73 sq M pre dicted among blacks [Volume Rate/Area] in Serum or Plasma by Creatinine-based formula (MDRD) >60 [facility] ID Date Data Source [id number] 12/01/2020 01:57:07 PM EDT [facility] Name Value Range Interpretation Code Description Data Ellen rce(s) Supporting Document(s) Consultation [facility] CZLAZy6mJxFNSjLe27/XKNvuCJOww2JmRKxiGAg7UVqiPYUfX1ZeATN8pH9vRXL7DEnPMmRqBzYhHZF6 lbm XrTglUBsJwRKXkGgqAIfBfXGbmBrkizHPdYL0UaAG8IETnV46yYAAuURTeL0AgIXB3CbG+Tt7VEJGbyX UtYS6XMpjU2G3aQ6t3Wn4+Vfc/wCkg2gTaPkl59hjKnxXOQEj0JjreFtzGK7H1Awq8RyQzM5+yJT+6Y/ rwWBoScputQJfk/qkfarVassOY+u/kyTk0Yunq+Z/q 8kQH8JuA/voXVndzRdWt/wO5Zu4WZ5RP8AH89pNyQuH1akbbSlsrF+ue8SuJxgUfb3SYtTENq2ReQW1z KRxMYJg3fI9vhMeEdCxOOnZvc4pw8cse4IIllzfJbN3I7xVoa+F9vrec9yszY+ouDIEL4vha8vkvuM8/ JvUMgpKB1EvTEk+m2xwsVyXvTrVI3KsAtmWj+Uveog IAvlBuVkLtPhocb6XqaIJ/KrzQFcp/jzNvilG9nKt5pfc4D7ZgnJnQlRk1fgrIEa/USckaW2ubLzKzSW ecGEqw0+FbTovlYWFuO6l0FktoMFoACWmsUV+jmdJjIxNaS6uh3hZwWEeMlundANLcbqtX3YXtngL0/2 DNuBhpvyfXy51i/5Bs5xuNaL1EO94yYnvI8krELAjZ 1IIm97lQXUGoywZhr8YbG2tgrgSkOBtw5+9XOhve8HD3bK8fvoTgInz3z8z6i9mTbeuCMQgU0drMxQnl LojyId1OpIAHUuXcdLgpkgVPVZjZ02lVHAxj7JAtR+5lE3eSTIrqcx2CLW49eBWnRqoLwtNePgFZnvHy JGUjtxtsUgKHCVDIOyVz8DINS2GWLWJHvUPoMS0yzJ [file] AgICAgICAgICAgICAgICAgICAgICAgICAgICAgICAgICAgICAgICAgICAgICAgICAgICAgICAgICAgIC AgICAgICAgICAgICAgICAgICANCiAgICAgICAgICAg ICAgICAgICAgICAgICAgICAgICAgICAgICAgICAgICAgICAgICAgICAgICAgICAgICAgICAgICAgICAg ICAgICAgICAgICAgICAgICAgICAgICAgICAgICANCiAgICAgICAgICAgICAgICAgICAgICAgICAgICAg ICAgICAgICAgICAgICAgICAgICAgICAgICAgICAgIC AgICAgICAgICAgICAgICAgICAgICAgICAgICAgICAgICAgICAgICANCiAgICAgICAgICAgICAgICAgIC AgICAgICAgICAgICAgICAgICAgICAgICAgICAgICAgICAgICAgICAgICAgICAgICAgICAgICAgICAgIC AgICAgICAgICAgICAgICAgICAgICANCiAgICAgICAg ICAgICAgICAgICAgICAgICAgICAgICAgICAgICAgICAgICAgICAgICAgICAgICAgICAgICAgICAgICAg ICAgICAgICAgICAgICAgICAgICAgICAgICAgICAgICANCiAgICAgICAgICAgICAgICAgICAgICAgICAg ICAgICAgICAgICAgICAgICAgICAgICAgICAgICAgIC AgICAgICAgICAgICAgICAgICAgICAgICAgICAgICAgICAgICAgICAgICANCiAgICAgICAgICAgICAgIC AgICAgICAgICAgICAgICAgICAgICAgICAgICAgICAgICAgICAgICAgICAgICAgICAgICAgICAgICAgIC AgICAgICAgICAgICAgICAgICAgICAgICANCiAgICAg ICAgICAgICAgICAgICAgICAgICAgICAgICAgICAgICAgICAgICAgICAgICAgICAgICAgICAgICAgICAg ICAgICAgICAgICAgICAgICAgICAgICAgICAgICAgICAgICANCiAgICAgICAgICAgICAgICAgICAgICAg ICAgICAgICAgICAgICAgICAgICAgICAgICAgICAgIC AgICAgICAgICAgICAgICAgICAgICAgICAgICAgICAgICAgICAgICAgICAgICANCiAgICAgICAgICAgIC AgICAgICAgICAgICAgICAgICAgICAgICAgICAgICAgICAgICAgICAgICAgICAgICAgICAgICAgICAgIC AgICAgICAgICAgICAgICAgICAgICAgICAgICANCjw/ fZAqN8rgzCZjubA5H0xgQg2PVe8VEU5cz5LaSKCpEUciocOeGimLGpYaTQTrBumNZdu8KMerNR9NeNVu V6UdV2FyURsnRR2PQDLeEDSurYXxDVZeCQQyKgB8SHBlCZwxJZ2OqNOhUDlxQFLzOSPbCcFjSORaJV1U MXDaR707hpYqKo2CVc2DLaNxZS5coz5XZpXvAMGzUq kSIsq5BFhpBL9KgXMkwQMhUsChESRCQuUqU8btq7WoPdCeFVRQXQkmWN8Vh6SjiGTfAJd+Gd7ZTJ8xr3 MbOFdiWaAbTD6cki3OYEwNBpPvB8EhzWbzMCYrmhO4iOGvKXG0MQclpD4xDPYeSJQ5eRKhNNcWD0jjOE ItJZAjWU2oCDChDGDiVvD3NZAVHM7GABWrCLFeoPYz KFMqIXDSPH3KEOgbCNA9COMmjvPvhHTnFIigPV9MYRGndgEsHfUqFEFYNZw+Je9ZSS0ca2HhCQmjZQPf FV6fek6YLLfRMxVjJ8X5qVIkH9O4OGtoDh7OREThSMVkRwUaKYRGTXqmJO4ZOA4ykjX9HV8VdUOaMBPn FTQyqQNrNYh8M18ddYJkYWzzFF0YHKP+Claudia+Pg0KIC LsFBDmBCMdAxQxCNHSUrIaV7QbN0DKm1MoO5EcIW24oQzyisRmJLbsEV7AAM4xWHUmNVSQFW2RqQXmqX 7xikFkVrCcWAZRJkCvY34zuSYhJKVdBSSgOEIaTh1ERLXnM0QoyaYfmInyfxVrESScWUMZSO7NKMbdls NkvATgzVdePO49oXwaLS9KMe2GQoBoOL3gwl0MlFUl Ux6MUDOkCN0SLQCtUUOvIYBiXUT3TVAjHoGyCGzlFSHlYFBmQKJ9HJZzIHAiHP8ODaBoTCGqBXLaREds IGNwDZYqzo7QZYMzRKVwYfp3YdKgVMPyMYBcUJdrAQLsXOVwIBO6LYYnMFJdJA8WYiWdDMLaOJW1ZCAy IUUxSYMull8RCSXrLCTlCmjhUfPcUJYxASXdZHhiPP FpJTD2ESM9XUWrCRWnZV8STtXeQTYmMMM4MJKqWNKuUWAtoc6WSTHkGBGjHpZ8KSMkDZZwCDSbGIlvBK CtRCA5UkQ7VMTfELUfTN4XEkVbSMEsRGB3EVocWPJmOCMewn5AMSHvOCXmGzkhGsQxSPSkUNOaPKkoJG SxXJA7FFD3YVEyXSBsGO7WVnEtMHQsQWkiGBSyBPTa NVDtyp5ZPACzNLEbNFR4ZBPoLKVwSEYgCAvbKJIvAGN0GYZ3GITaTMFgQP3ZCjPmGVTuAFz3EWZkMBZa LLXcil9TDWGmNURqBWUsAIYjDFMpKKOjZYskAQNrMAUiYBXmLFTgVFPoEU8UKsLoCZUiXWX7EIInWPDa QCBhfr6HXOKzMRZwHJZqHdOdNETtFXGoWXhxCLOrSA CvDNauMKOkYXAhIB6VKaXxFKVnAFB5BKPpXYXpGXYhoa8DCEJjTCJzYvG6TOXiQIGdGUSnKWn4afAheB XnKTe0VM5KA8HmtvKkGyUUQb7Ic372LKR7QBRjBp4DO9lvKq6dCURgHGEVHv3QVYk1TWZ9TfNbSbDnXH I0TIYtASZdI7UcQDK6YSY3WWN6EbX+IDwxZDhiYWNi VZS3CkXqPHG1G7GtJcK0ZMX6McU3QAs4WP0zYLJQKr4+PZbxmJAaxJllVLVVSkPmKcW7HCypRLWEAf8Z ID Date Data Source [id number] 11/30/2020 10:18:16 PM EDT [facility] MR BRAIN WITH AND WITHOUT CONTRAST [id number] FINAL RESULTInterpreted by:Mariah Houser MDINDICATION: Brain metastases [...] rce(s) Supporting Document(s) ID Date Data Source [id number] 11/30/2020 04:23:58 PM [facility] Name Value Range Interpretation Code Description Data Ellen rce(s) Supporting Document(s) [facility] BOWBQa5pHkPMIiTg61/SMQppZWCrh4NaLMiyNHa4IKogJBQmR7ZhFPY2hU9aZTG8EMbNCcQjFeTiVGU4 [facility] [file] ICAgICAgICAgICAgICAgICAgICAgICAgICAgICAgICAgICAgICAgICAgICAgICAgICAgICAgICAgICAg ICAgICAgICAgICAgICAgICAgICAgICAgICAgICAgICAgICAgICAgDQogICAgICAgICAgICAgICAgICAg ICAgICAgICAgICAgICAgICAgICAgICAgICAgICAgIC AgICAgICAgICAgICAgICAgICAgICAgICAgICAgICAgICAgICAgICAgICAgICAgICAgDQogICAgICAgIC AgICAgICAgICAgICAgICAgICAgICAgICAgICAgICAgICAgICAgICAgICAgICAgICAgICAgICAgICAgIC AgICAgICAgICAgICAgICAgICAgICAgICAgICAgICAg DQogICAgICAgICAgICAgICAgICAgICAgICAgICAgICAgICAgICAgICAgICAgICAgICAgICAgICAgICAg ICAgICAgICAgICAgICAgICAgICAgICAgICAgICAgICAgICAgICAgICAgDQogICAgICAgICAgICAgICAg ICAgICAgICAgICAgICAgICAgICAgICAgICAgICAgIC AgICAgICAgICAgICAgICAgICAgICAgICAgICAgICAgICAgICAgICAgICAgICAgICAgICAgDQogICAgIC AgICAgICAgICAgICAgICAgICAgICAgICAgICAgICAgICAgICAgICAgICAgICAgICAgICAgICAgICAgIC AgICAgICAgICAgICAgICAgICAgICAgICAgICAgICAg ICAgDQogICAgICAgICAgICAgICAgICAgICAgICAgICAgICAgICAgICAgICAgICAgICAgICAgICAgICAg ICAgICAgICAgICAgICAgICAgICAgICAgICAgICAgICAgICAgICAgICAgICAgDQogICAgICAgICAgICAg ICAgICAgICAgICAgICAgICAgICAgICAgICAgICAgIC AgICAgICAgICAgICAgICAgICAgICAgICAgICAgICAgICAgICAgICAgICAgICAgICAgICAgICAgDQogIC AgICAgICAgICAgICAgICAgICAgICAgICAgICAgICAgICAgICAgICAgICAgICAgICAgICAgICAgICAgIC AgICAgICAgICAgICAgICAgICAgICAgICAgICAgICAg ICAgICAgDQogICAgICAgICAgICAgICAgICAgICAgICAgICAgICAgICAgICAgICAgICAgICAgICAgICAg KKPdSTAsGKPsXYNiVQTgJTScOISmCCDxMQKfYGOuWUHlWBJoHVPwKJXjPNTgGKNgNMg5L1hoGPKlMBYn AD9rTBo9Ck1+ZHhGYsKnTLD5zaDgkM5WKL2fa5HiZU oaJCJdo0HfKGo7DS0QUKZyXJseID5FPBctnj4GAGYqNBNszSODt4zzNlVyFFI7YKSgAhpbPU3KUYZuT2 vonoMaPPSaITRTPCknMERSVCiuKHMTZHRzOGNkXcZzZoWxBLNqICGwAPFQTXS8WHBqCsXaCPLxNDBaHh KvAKUXIL3WMfBpG3EueZ77APiOJw3+DQplbmRvYmoN FkOzOKWxe2HzZWt2DK0ARXPeJocbn4OeLXPtIOEOBPnsTP1KCQH4KDHtIMIoMh0PNXXvO254suTmAM9K Ft4SGuQuPB0bpx8ZDOXaUDRrIhoZZze0LWdsUJ7XmMZeACxVm77soUf7ddJcyVEUcggqco4bPUxiT6ms nQx6hF3XhLEmNCHYTGHanBEgIN58SmIeUcYpHQn5UM JyTD7qYYkaKQ4IWWE7RYebRLLoPECjL3nFFiKwBCVzRdJlrLkxWJ9WTlRsE0BlzsHomVX6RFYuEDWWEc 4+FNzmzrDbDqwZQbHiSDGyr2IxAFs5TF4ISKZxKWwlEQ3XNXBfrY9yJEobAO5GFcOiOSHhCFMTYzArP1 2okKOvJEr2E1BgPnXlXHXeDhpzTCGxETwnVtPcWHUc WyBdDQogID4+ID4+WYvdSU8JZHyhnkWiZFYeDv7XENXzCGTxDF6oXBCcFYQbJ3U0mGkfBHTQXqXkL2se ilagPK4mPCCuD185jXssvwNqIOAnGTZrCv5ECNBiIYW9FWAiyKOaUDPjCSJHVBdcME1SxRJmQMU1uU0p ZJxnDVGqKRIvQ6yTZyZxyBufWV81kIdeumHsrNDbIK o+Lb6AUO5uw7MpOTl9zjDnFGaqDLV1PBvuAVQsIVZtHMSiPKM6ILP9FGMXFlYgROTkTPPoIIlvEZReXV Gotm9PAKCmIIL9BhV5OxZxZAMwQKEyWRdmZBCfHBF2Hof8YASjSDFfKH6XUhFlJYLjSWLxNNocZLBzEQ Copd6BTOMuRNJwWAJ3OSFqRROoNHTlXRmzRQUzVVI6 QIymQMVpPTHnVH4EGzLxEPEaQOdsTJpnVNMyZVJsbr7PWWWvKNMxTlSvRzZaKPHwEBVsXPfmGDHfDRIk JKh9BBSiSTUyFN3MNcCvTIVgPCUmYSNeNUPpVZJfra4ENHXlIWFzXgB9DkZhDTBdRCKrRIekNHBfDNPs SWB4DGVnKOHtWE1TNtLzPVMtVDk7XRVbJBFpUAHydp 9BXDZePOAaJxk7NmOuGUTjCUVxGUivTGCcOGZkHyNuIWToAVMfUZ1USzOvPZRbUiE7PIXyAXKkKNEzaj 3KTQPoMZQkEZI1CzKhMZWyLNWqPWzoSVOgWOC7ZcS4QMWnQQXxWL3RZdCxQDIsRoDdXODzJQFqFWSukl 5MOKGdNJVtJgQgUWBuIJVcJGBoPGyyYFKtNJD5Rddu AZSbWROjYR9TLxGcDXOuIyR5QAeaYKIrDWQrwu1XWURdVGKvCzj7BENbZJOqTGZnRGgqAXOvVYC4QAV7 RMPhUBSxCK1EZcHrRQGeXxoeDfjsPVPxOSNjws6UWNRxDUCkXPW2THNcRONnXONqTJslUHVlHFT9Lfld UDVhJSVyJY3CDpNjVQTsZdf1WiqxNRQqJVOihg4APB JhGSRmZOXoKOIoAOPjSDWlLUfpXTWbKGE0CiL1RNFoZZMjMZ0TEkNtCYHbKad8ZHncKNBdMCWpcn0ABW GdDCS0BWPdPsQjZJGhPNDkFGbvCOBqGGRnJxHqGJUmMCCoTT6ZKsTkJIPbYKL8RzKbHCWcLTJhhq3XPO VuKZS2QsH6ZLDoGKZhHPYsOLlaQNGwGEIqJlT5EXLm EQEfVZ1OFsVtRSQfBUWpZCgwBBUlUMZcrs4SBBOoSEC8IsV4AzMyIHXiIZUbTIpyEKMjHJGgMWO0XLZi BKEuFJ4RVrDhEZGfCXM2RTnrZWTiMVOsmb1SETJhTOJ1NDB7QEHoKOAlFTEwGLkhMPSfINB7VCIoELIn EFIdPZ3UGyOrUECqDNJ8KhCcNPGgPWSkqv7SeXWmaR twjj9SLCuOXn0RlSpuJRC4YTryQx9myTJ1JuBcGPLKEb5PgmVgDAAcNTMMMBmgKZXbJYP9OdIvGzg8OA OrYRL6XHOcFhSsGJI1Y1WiUsIdW2QyVmR2VkRaXXQ0PWlpTCYgKZAcDjX8ERC1TdgzSPJaU8ViU3J+IF 0gDQo+Zw8Sk5OokoB5upKdQRa2JEeeRb0EOINHD0VDLi== ID Date Data Source [id number] 11/30/2020 04:09:58 PM EDT [facility] Name Value Range Interpretation Code Description Data Ellen rce(s) Supporting Document(s) Consultation [facility] FUTIQu7cPyTWPnMv72/HSAxoJOBkh6ZzPOcgJPq6IEafJIBkM7ZkCKF2vH2oFZH6EKaDSpEwFbPfJAP8 lbm [file] T7TYQqPdL2LZX7QcZwGSYbYXC+UP9vMFr+Wi8Cl9JvlxD4twDcTAb9MaX4Gv3HGUQVH2XGVo== ID Date Data Source [id number] 11/30/2020 02:47:27 PM EDT [facility] IR IMAGE GUIDED NEEDLE DRAIN PROCEDUREFI [...] rce(s) Supporting Document(s) ID Date Data Source [id number] 11/30/2020 07:38:39 PM [facility] Value Range Interpretation Code Description Data Ellen rce(s) Supporting Document(s) Carcinoembryonic Ag [Mass/volume] in Serum or Plasma <3.4 [facility] Levels of CEA should not be interpreted as absoulute evidence of the presence or absence of disease. It should not be used as a screening test for Cancer. CEA values obtained using different methodologies cannot be used interchangeably. This method is manufactured by [employer] and is an electrochemiluminesence immunoassay. ID Date Data Source [id number] 11/30/2020 07:40:30 PM [facility] Value Range Interpretation Code Description Data Ellen rce(s) Supporting Document(s) Wzlrz-3-Hbuamfclyph [Mass/volume] in Serum or Plasma <9 [facility] ID Date Data Source [id number] 11/30/2020 07:59:29 PM [facility] Value Range Interpretation Code Description Data Ellen rce(s) Supporting Document(s) Cancer Ag 19-9 [Units/volume] in Serum or Plasma 93 U/mL <35 H [facility] ConfirmedThis test uses [employer] CA 19-9 el ectrochemiluminescent immunoassay. Results obtained with different test methods or kits cannot be used interchangeably. CA 19-9 is useful in monitoring pancreatic, hepatobiliary, gastric, hepatocelllular, and colorectal cancer. CA 19-9 value regardless of level, should not be interpreted as absolute evidence of the presence or absence of malignant disease. ID Date Data Source [id number] 11/30/2020 12:34:45 PM EDT [facility] Name Value Range Interpretation Code Description Data Ellen rce(s) Supporting Document(s) Consultation [facility] JHEEYd4dZqITWuYa97/NWJydLCPhw1AhQXpzYSo0EBbrXRCoG7LeJCB6hI7fAQR6MDiFKfMyHjKpVYR0 lbm [file] AgICAgICAgICAgICAgICAgICAgICAgICAgICAgICAg XUWjOWVhMQJnRVAnUMFwSIWeXNGuUVPxSAFxGZ5XMXNeXIEbYHVzDVJwVMSyCEWbSBSlHNHcYGRdNRKc ICAgICAgICAgICAgICAgICAgICAgICAgICAgICAgICAgICAgICAgICAgICAgICAgICAgICAgICAgICAg IPYySMRlNSRfTQ8NZCTfPUMcGYPqHDBdUZMaAKDtLY AgICAgICAgICAgICAgICAgICAgICAgICAgICAgICAgICAgICAgICAgICAgICAgICAgICAgICAgICAgIC ArZHTgRPLbNHCjGZYcKHOjSSUhXL9MSDHqCALzMUSnAWMfBDYzAEFfSMWyOQPkZGFoRACoHMPuKPMySG AgICAgICAgICAgICAgICAgICAgICAgICAgICAgICAg TJYwAULeKEHbGMJnDLVyLGAvQXEwQQQnQQUxWINxAE1RBTHlZLZhSDVoTAHjICNiBVUgEXOtIPRdWOJk ICAgICAgICAgICAgICAgICAgICAgICAgICAgICAgICAgICAgICAgICAgICAgICAgICAgICAgICAgICAg EVGlQBAmVFSnJKXdGP5LNNZvGVEkYVNgNKDpNKOrTV AgICAgICAgICAgICAgICAgICAgICAgICAgICAgICAgICAgICAgICAgICAgICAgICAgICAgICAgICAgIC YjRMYfXJFzQEDcLEXoOZDcAWBpJNXoTF5DRJBcJVUqRXBlEAWkVOFuBBUvHOUtMKRjSGDjDDSgWZOaJJ AgICAgICAgICAgICAgICAgICAgICAgICAgICAgICAg FXVaQHUwTZHjCXCxFQAnYBCpCCNnXKVtJNHjGKHqMKHfPC2MRKFzQDOwBHCfMTZjTEJnIPRuRXAlIHHj ICAgICAgICAgICAgICAgICAgICAgICAgICAgICAgICAgICAgICAgICAgICAgICAgICAgICAgICAgICAg BYSyTKCbCSQvPPYvCZYoOW8SHHUcSUBoPDUcWIGbNV AgICAgICAgICAgICAgICAgICAgICAgICAgICAgICAgICAgICAgICAgICAgICAgICAgICAgICAgICAgIC AeGPKiROFbMWYaESBsZJKgOOEdFGIkLXYgLP6VGUWpMANzJANgTWZoPDYjHRWjPSJoUHCzCGCgWLQnRX AgICAgICAgICAgICAgICAgICAgICAgICAgICAgICAg ZFKtNVNbRYMeBTDgJGOtOJGySOVgGBGcZPWqQDPiFBPtBJLiQL2HRV24qQHse1C0NOIlEB6pbrn/Pg0K ZAarjsSzkAXgPK0PSeDnCF6lzd6NQbTxQE7izp7LXRoDRfMvI2L3hXZtADEnREYPNlEyF86kCXroUh86 HCvgILYbRdRkBMy2It7PFwNvC7kzEKXoFyU6INGbIu Y7NHNoWxX3QXHnYbApDDXkRHEuTIItIJMYEWP3KWEzGaDuUQljFX5Zc1TudLT4GDd+Fw3YFD3cq8PqZH v2WPOhVK3nsi2JGYzZRmHhI6CnqiG7EQKrMCCgWs9GKCTlQIAzaLA3EhHxUNNTWdPtP0WjfZ44MVWSVc 4+HNwzmgVdHlnKRjVnDASqn1GxUUd2FT7QUCBpTBs7 lYXzO87dt5XazQUoUsocZk5bZLfyGERsQ5e7vqpjd4IhwCgqRXHiDKHqSZCsDA0gJYPtSVG4HhYwKQYB TI3BESOiZHTbzBUuXRJrUHIIOS3QUFvcGZE8XNQrtxLivNIxTAquVP0FZXZrrzLzYMWyWAAMXRa+Pg0K NS8zl1OiODu1LuRnTP6qas8TLFzXXqLqS2N5nTFmE5 D5WBhtUf9UAFAqDZDcYdtsPDMAQFmnBP8WVB1uhtW9RH4KoASrWELfARSsmZKnZEj0L15ipOTmBFemQD 0KICA+Claudia+Ia9DBJNeUSGiSOOxQfZeKPIWQfMmL1TvG0OKm9MnF3SiMP82eBzmunDbUWodZC8TLU4nHX XsZZSFFU7TvXVatC2phmP7LIIyWCHOTeIdQ05vyIPx GWDaEULmRFTdNs5ZLIEeE7KvlyIdmYcpngDuSYCaOXEOTS9KYDtqdrUitPVjeChrVQ84pEwfYN2YVu4R BkRmHH2wdn9NsAMnWr5ITAK4TQ3NRICoWXWdTZQcYEE2YTOlClRjZKwnZBWyEPQgGZE4ZPWfDZPzUY6F YzVyPNVhBER1KIqeCHTuORBsds6QWAHrWYO9WnG6JS QzXMBnSFVyKHrvGZYeSEYkQXI2BJLrLFAbGX4WNfUzSNNuXZA0CauiRJOaZRYytw3NOWTkWQDjAmj9Us DtENOxZJDrVFdmSXZmVGK7YeL1RCBtIRGjFQ0IAtJgHFWcIFs4OKtvANIvTBXxwj6LKRXgHYZiPHEgVP YsJXAoDZBfMKglCXRoZJCdFtV1VEBsPXGnIU2LIfHd ZGWhZFL6UXQdLSUsZKLuve6FRQQyPBMzQRb0PDSkNEPnYNWvDWizOYQeTFHvSEV5YKSbDPLeKC0VDgFk IEIePrMsZiQhWUYaBVHdtf2TBDVdIAKhWFRcGQKbZHFgOERyEQbvPURnLLU3QjAuOOAzSBPxNZ0HJaTk BCCsSzJwRVQxRICvNURoqp8OGSDjTMHfMQB4HTMnHS ClQHCvIEitQOItJQM5CjpsDYNyBSBoLI4DTqMpOOUgIyZ8TqNsOEAlGLRbmk7YZXIdRYCrRhhbQoAdGP PgQYZfXZupQMSlDAL6JGJlRUJuXHNdCG4UIiSwUOBmTws7YyleNJIgKFIgex3HRHJtLNEmHUH5URGsWS ZgLWPsOHupXTGzTAK3NnZ3GYDmCRBeBQ1YDxVuEBEq FhyeFccrXZBcRWUzms7OJZMfHTZePYGtClAfVIGpDXWhQCbdCDMePQW9XaK9YZHmFYLxKK6TMjKaAAGl AWYzMMVxMTHkXVNscn8LZREyZRX0PFUeDxBwDAWxVAJaFQyfSDScILGfUsYsECLkHBFhEX2RVoIsRVQb QXZ3UuDfAZQnYKWrai5OQECpSXX4UdBxEzEyGSRvJP UvABjpLQBqKEWeAGKmMMBdUMPnQO7EHvMhTISzFPKfStvbUAAgDCJiau0CGFOkRMR7VmFmFcLnTLQrEF DkXSqeLAJeLIP3XvL1YSIeTRWfSE8GJnBnPVCvFBJ0GYCjIENdEHYjdv9WCFIeYUA6CAUcHNSbMHJxMO LaYEknBGSkVKE7EPYhFLZvPNLyDT7DAcDtDRHkGTM2 BdSyDSTiBNAfxq3JXSQfRQA8EfU3TgLwNEHfPVWqKWjwTVBpLGD9JyrfZKDnMJMoYF2ZEjFmYKltYADU Xzw8CCmxT8s7UWJ0LT7ZP0Bpt9SeOLOxTUTGKSwhSF6ywyUvVVLpUx5HD8uVZiobBeOjMNHuKiOfSKKt WQB6XpeeOlz4MgF1NQFcKtV7HC4jCRXzFOPqBNRaUl EeRvN0Xth5V8HeBSX5WIw1McE5GBa3PhMfPI7DCh4RJuO8FZW0lPCcMn7NSRttYvSLPfBqNT8BEUf= ID Date Data Source [id number] 11/30/2020 08:25:07 AM EDT [facility] Name Value Range Interpretation Code Description Data Ellen e(s) Supporting Document(s) History and Physical [facility] YIXFWg8sDmKYXnKu45/ROZulHUFag7FjZJinWNi7IZjkCPPpT5ZpHOF6iS9jGHH0YJzOZgPhVmZnIKE6 lbm ZbGngAOlFqLGLdZqtBWqEqDMdvOqihuOGtAM8BkWG2HCIiR10nZYRmXFEjF4KoNVQeGJT+Se3KQPPflS AwWB1DKodT0Bamk+A3Rd5h8E8HkAZYNjr7bJOBGzfQsEb0c2YyqC23UHB8NzQakCG1ULb5o33/LyWRlo mQ1JSotS2vgepTW9kIgLEzDUzOa0U351bVrZZHMUn+ si4LihLKVP1vI7Z/kqrmxliy0ZVWWKURUAFPnPZw+MSQT3O4FUBLbeMIgtYOKJrBy9dWAVuaBLC6/A4N lsekX7RM1QCzhxSXRDjbYpY3re/R8L/ofIi+0T6I8KMWKib+TSwSQ7XUWxNZUe9OnNJsDrBAJlPMyxvx gbvwC5TUEaWRkwQXZoM1lAg+V86WJ+kIS40YjmJFWF h6ClAtbKOAs7VonIMd1RupQpxITl5rB2ODfJAYZu8z73NK41yRLDE6B45J2waBR4fykpPQOJV0aSPoMd fBnkWewpuveIxf5AsDhgsv75r8y7HEJ7n6i+dywp9GgcboKd7LmtR4Cu98BbCNHBNgYELnhi4++FNFQ2 sr8WOi/asg7LiPUdyBWlZSvIDUxvsVa7TWmIDmwo4j KJRWpzc/4IL6pCBFhRbB6lrEz7L4Eyv+mXVCUaFpOK0BOOdDgrlF31tTzaT6nO3jp8pGBEGCkONOQiWc WT3AjMS232XCcAq6VPj8E95Rn1e8gx0S97K7gh6HAv0TWN8zuOSRZLldXOdCLDW1djenglQILAJLQTXS 8KtPvYfKSfciRWdZ4YEazaOzgWw7dMaOqiRixEOWvN KC1cVhX/V1eWrENBOaoa4ZGmaJQAG/ijDnuTTH3VI7fcvVdWdRqhF291uZIhuNViv4L03OwaY0p7ylW7 0IQ/JbXpT49orlKGI9WGbBzHbu7KMLKBZIa4q2vEhJEjc9VyRaEZPoT3bR3EEEvavXO8SXgQNcMYjFyK khHuUZo1x3R2zidWJpvDy9PimuhITTgSMMAj2o+Iris [file] Oqr9Fp7iWOOHOk6+EHnvdFXseOuxVQKJIbE2OWWsNKqsMTGDLs5S ID Date Data Source [id number] 11/30/2020 05:42:47 AM EDT [facility] Name Value Range Interpretation Code Description Data Ellen rce(s) Supporting Document(s) History and Physical [facility] FWQXEw7kHmKXXaQa76/XDKzdSUWfa1KeKGuhPVr8SQvzANDcD1IfIVM7cT3fDJW8HOnZSoLfCvBoEOY9 lbm [file] Saúl/RR8TWyDBdlIn+TE65t3dr6dVUZ2PLnwJXpZHMIwfOSq8XYnRcdgO9ESbfJzli0zytqe7zDnTS+zm8 [file] ICAgICAgICAgICAgICAgICAgICAgICAgICAgICAgICAgICAgICAgICAgICAgICAgICAgICAgICAgICAg ICAgICAgICAgICAgICAgICAgICAgICAgICAgICAgICAgICAgICAgDQogICAgICAgICAgICAgICAgICAg ICAgICAgICAgICAgICAgICAgICAgICAgICAgICAgIC AgICAgICAgICAgICAgICAgICAgICAgICAgICAgICAgICAgICAgICAgICAgICAgICAgDQogICAgICAgIC AgICAgICAgICAgICAgICAgICAgICAgICAgICAgICAgICAgICAgICAgICAgICAgICAgICAgICAgICAgIC AgICAgICAgICAgICAgICAgICAgICAgICAgICAgICAg DQogICAgICAgICAgICAgICAgICAgICAgICAgICAgICAgICAgICAgICAgICAgICAgICAgICAgICAgICAg ICAgICAgICAgICAgICAgICAgICAgICAgICAgICAgICAgICAgICAgICAgDQogICAgICAgICAgICAgICAg ICAgICAgICAgICAgICAgICAgICAgICAgICAgICAgIC AgICAgICAgICAgICAgICAgICAgICAgICAgICAgICAgICAgICAgICAgICAgICAgICAgICAgDQogICAgIC AgICAgICAgICAgICAgICAgICAgICAgICAgICAgICAgICAgICAgICAgICAgICAgICAgICAgICAgICAgIC AgICAgICAgICAgICAgICAgICAgICAgICAgICAgICAg ICAgDQogICAgICAgICAgICAgICAgICAgICAgICAgICAgICAgICAgICAgICAgICAgICAgICAgICAgICAg ICAgICAgICAgICAgICAgICAgICAgICAgICAgICAgICAgICAgICAgICAgICAgDQogICAgICAgICAgICAg ICAgICAgICAgICAgICAgICAgICAgICAgICAgICAgIC AgICAgICAgICAgICAgICAgICAgICAgICAgICAgICAgICAgICAgICAgICAgICAgICAgICAgICAgDQogIC AgICAgICAgICAgICAgICAgICAgICAgICAgICAgICAgICAgICAgICAgICAgICAgICAgICAgICAgICAgIC AgICAgICAgICAgICAgICAgICAgICAgICAgICAgICAg ICAgICAgDQogICAgICAgICAgICAgICAgICAgICAgICAgICAgICAgICAgICAgICAgICAgICAgICAgICAg EBJlWWApKEDxRSRgNJPqGTEqQFGdHBVeGRUfEBYvWEGbXNHfBJRrRDIvEYRxAFWaWHo7F0hgVJBiQHXt LI4aUKh5Pu8+WFjUWmMzQHD8tdUifZ4GFT6no7HvOP eiTTOej0ZnTLg6QH5KHIHkFEwzGT9PSBwapk5PZWKpHBZdhODSm6zgZyKxJBD1CTIfPyjiOI1YZOEfQ3 sslfVnVJLbKAYVRRsrTBKFELriSNOBEZJnLAEmZcMcWlRcOQBjXDRuAVEZKDI2ZXPxKbVxZCqdXS1Cm7 QppWR0QLb+Pk6QMD8zf7NsTRz6WMUtZX5lqn4OCUoZ IqUeU4IdsuU0NJGdNCYuHd6IPECvYXNscTM6CWObEQSAMdXtY9VjtI77ZQRNLv6+DQplbmRvYmoNCjQx MCXhs6HdVEf6YR0WXQMpRLr6zWTxMWGVYLE5DIQmKVdjn9BgSRFubRInET7LVjQfUNHkRSOqBl8sAMJa ZPR8VfC1NBVVAO1BTAXkCDEzrLRxXFHuLAEBUU9LNA mrEKP9DHHqdzCfoANjASepZM4AKOVrlgOmWUIsOYCPRHy+Hl0GMX2vj3JbRXr3ReGtUD9upr6NNOzGIq BjS1E4vMFvL8T5BHxlKj8SQXTaPUFdMqfrIKJOMQdfQF5DFD6wzkX4ZB1ApOEbRFXjBEHkiRMzYOw8W4 0ghILmDXtwZQ8CYQE+Claudia+Ts6KRZKoPEQtFGVvUbHg BGWARnVuE0WiN7ONr4QlP9NpFA93oEwashQnWDnrHH8SEN0dQWYgBTJLCG6FxEZccL8dvdF1MCIyJVPS SwCpM66igGHiVHPyEPI8UKYsBg1PAWCsK8UskiFsbVzoliSoWPMwMFLUJL3OBOecdlLnbZTudYuhIT51 eZwaDH1MHs7BOnBrAU7rsp5VzXXmQd7VRZE8Ai9OJV BpSDJkUBNnBSL5UYQnAnYyOKloBBXxATFyMXS6XYKrMTMxER4XClVyVGLwGZB7SUNwJVJtMKGdgh7KKZ GfOBT2IoBzUNUtOCAhZSDrYJcqEEQrJLSkZVY0MDImJEHuNC1XTaNrGCQrJPQfPjSjXQQmURPhnc3MIR BhHKVwWZXgFYYqMMZfEDXwXGuiPEGjQOG8BNGnZIZj RCTrRX0YZtHuJJPqOSf9XbDmPPCqZPPofi1OLMYdSJGqCNb3ZABmXPHaVFOyYWxeAHWiAGJjCLN3POOp EHZbTJ3CWwRjWVCyPEDnNWZdGXYlEASuij8TVECvPXNdRYR3OrOsHDVzHPThRWkoYRJuMGW0DGOdPVCy YBYoTB8FKpCoKERaFXryGwGnHYGqABRrjr3XYHAhNN WpZuIjWNLrYDWpAAUfUBzjNEInFRKrEKN6BEPlHZImRO0PFdQdDODrWuB4XmPyPIQoCQAtnv6CNQHqXP IkIET9VqCnJWLfKRGoTPtuELUsWZI3ZoL9DIRwJEYwNH0IMjSoNSOpHgT8FiXmMLPvZPSjgw9MOXAeUM UlUqPzYzGmGGQuZGMoPVasAVIkZOY2MTO0TYJlHJTh RO8OKaSjDSImNberYdsfWZQlNEIuyp2VPYXfDEKuJOZ0SbHpTIOlNFLkBFdtJZQrCBA7RnX0UTZuLIBn OW6BRrVsSMYlDsb1NXBvDCMmMGHdmc7QMZGoMBMjWRQ4HdXtIHEbMIQqXTsqGPFwEQIvNvA1DZWhHOMw ZS3NAoHuJUTgZwZ9LPbdATEkUUWjgq8MTIHvFZTmJC E8IVSxLERuSADbBGycNPNzXYJqTQfoIRSwRNCtAE9GCgMzVCTjZLV0VClnKHShATZpei2JOMZoYDM0Kr NcQzHsMXSjORRuINgbYBQmKYLtOgV1RYKsIJEvKJ1NYqFcTFSsERO4EOXtEYJjJERstf8UWWZdSKI5CU G7NbMfPFVoUVOfVXqsBDYiAJD9GPV5NQMjLPWcAC8I UvLqSZPkPVB2CcKeYBKfAHZgcf2SUMTxJVY5WPP9KJIqKACzSQYiFEkqUCQbXZN8ZfZ5NSTdMQKqUE4P LuEuVKVcIYV6QgBeBBQpNOWkhr5ARASyXKP7Bqv6IGHlIZNuUWWpTKy5gbVgsSOkSMj8XY1WM4KekdPm WFAWJy7Vg998TNGxZSEeVj1TW4llBt0qLRBgSJJHJq 4ZRUr6KEkvKUIqEzs6ZKO9FHdcKGQ2ZDPtIqD8RPYnZHXiXGY+NWj7EXE2ZMGzNUm1KzYsB9CyQTD4Mt Q3UHppC3RmZsQlFz7aCYRAFk0+CRjalSSynFvxKECPBrT9JBQeFQuiUXCUJa2C ID Date Data Source [id number] 12/01/2020 10:36:00 AM T [facility] Surgical Pathology ReportName: CONRAD BYRNEMRN: [id number] Number: [id number] Date: 11/30/2020 00:00Received Date: 11/30/2020 14:55Physician(s): TASHIA PHOENIX MD PINTER, DAVID J,[facility] [place] To: TASHIA PHOENIX MDMEHTA, RADHIKA, MBBSSpecimen(s) ReceivedA: Peritoneal implant biopsyClinical HistoryIR guided biopsy for peritoneal carcinomatosisDiagnosisPERITONEAL IMPLANT, NEEDLE BIOPSY: METASTATIC A DENOCARCINOMA. (SEE NOTE).NoteIn the setting of 5.5 cm mass in the pancreas, these findings arecompatible with metastatic ductal carcinoma of the pancreas.Osmar Paulson M.D.;Resident PathologistElectronically Signed By Luther Bhat M.D., Attending Qhshlggtbzr90/5/2021 10:36:25 The attending pathologist named above attests that he/she has personallyreviewed the relevant preparation(s) for the specimen, performedmicroscopic examination when indicated, and rendered the final diagnosis.Unless 'gross-only' is specified, the final diagnosis is based on amicroscopic examination of retail representative s ections of tissue.Gross DescriptionThe specimen is received in formalin and labeled with the patient's name,"Sherrie Byrne" and "peritoneal implant biopsy". It consists of multiplesoft eaton tissue cores ranging from 0.3 to 1.7 cm in length and averaging0.1 cm in diameter. Totally submitted in two cassettes designated A1-A2.COUNCIL\\This report may include one or more immunohistochemical stain results thatuse analyte specific reagents. All positive and negative controls havebeen reviewed by the attending pathologist and are satisfactory. The testswere developed and their performance characteristics determined by [facility] Pathology department. They have not been cleared or approved by the USFood and Drug Administration. The FDA has determined that such clearanceor approval is not necessary. Name Value Range Interpretation Code Description Data Ellen rce(s) Supporting Document(s) ID Date Data Source [id number] 11/29/2020 08:50:04 PM EDT [facility] CT ABDOMEN PELVIS WITH CONTRAST [id number] FRANCO RESULT - FINALInterpreted by:Yaritza Lima BeginsSigned on [place] Nov 29, 2020 8:49 PM by Royce [...] COMPARISON: MR ABDOMEN WITH AND WITHOUT CONTRAST [id number] 11/27/2020 5:47 PM FINDINGS: Lungs: Minimal scattered [...] rce(s) Supporting Document(s) ID Date Data Source [id number] 11/29/2020 03:41:00 PM EDT [facility] Name Value Range Interpretation Code Description Data Ellen rce(s) Supporting Document(s) SARS-CoV-2 RNA 2019 nCoV Real-Time RT-PCR: NOT DETECTED [facility] This lab was ordered by [facility] and reported by [facility]. 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 [facility] Patient has symptoms related to [facility] When did you start to experience these symptoms [Date and time] [Phen X] [facility] Patient was hospitalized because of this condition [facility] patient was admitted to ICU for [facility] Patient resides in a congregate care setting [facility] status [facility] ID Date Data Source [id number] 11/29/2020 05:31:11 PM EDT [facility] Service Cmnt XXX-Imp : NoneRespiratory P CR Panel : PCR ResultsMicroorganism XXX Cult : See Labs Tab for 2019 nCoV RT-PCR resultsHAdV DNA QI LARRY+non-probe : Not DetectedHCoV [id number] Nph QI LARRY+non-probe : Not DetectedHCoV [id number] Nph QI LARRY+non-probe : Not [id number] RNA Nph QI LARRY+non-probe : Not [id number] RNA Upper resp QI LARRY+probe : Not [...] DNA Nph Q LARRY+non-probe : Not DetectedB [id number] DNA Nph LARRY+non-probe : Not Detected Name Value Range Interpretation Code Description Data Ellen rce(s) Supporting Document(s) ID Date Data Source [id number] 11/29/2020 03:45:39 PM EDT [facility] Name Value Range Interpretation Code Description Data Ellen rce(s) Supporting Document(s) pH of Venous blood 7.40 7.36-7.41 [facility] Carbon dioxide [Partial pressure] in Venous blood 50 mmHg 40-45 H [facility] Oxygen [Partial pressure] in Venous blood 30 mmHg [facility] Base excess standard in Venous blood by calculation 5 mmol/L [facility] Oxygen saturation Calculated from oxygen partial pressure in Venous blood 56 % 60-85 L [facility] Lactate [Moles/volume] in Venous blood 0.6 mmol/L 0.5-2.2 [facility] Bicarbonate [Moles/volume] in Venous blood 32 mmol/L [facility] ID Date Data Source [id number] 11/29/2020 03:16:45 PM EDT [facility] Name Value Range Interpretation Code Description Data Ellen rce(s) Supporting Document(s) Leukocytes [#/volume] in Blood by Automated count 7.7 10*3/uL 4-10 [facility] Erythrocytes [#/volume] in Blood by Automated count 5.05 10*6/uL 4.6- 6.1 [facility] Hemoglobin [Mass/volume] in Blood 15.0 g/dL 13.5-18 [facility] Hematocrit [Volume Fraction] of Blood by Automated count 45.1 % 4 1-53 [facility] Erythrocyte mean corpuscular volume [Entitic volume] by Auto mated count 89.3 fL 80-96 [facility] Erythrocyte mean corpuscular hemoglobin [Entitic mass] by Automated count 29.8 pg 27-33 [facility] Erythrocyte mean corpuscular hemoglobin concentration [Mass/volume] by Automated count 33.3 g/dL 32.0-36.0 [facility] distribution width [Ratio] by Automated count 13.3 % 11.5-14.5 [facility] Platelets [#/volume] in Blood by Automated count 314 10*3/uL 150-400 [facility] Differential cell count method - Blood [facility] Neutrophils/100 leukocytes in Blood by Automated count 78 % [facility] Lymphocytes/100 leukocytes in Blood by Automated count 12 % [facility] Monocytes/100 leukocytes in Blood by Automated count 9 % [facility] Eosinophils/100 leukocytes in Blood by Automated count 1 % [facility] Basophils/100 leukocytes in Blood by Automated count 0 % [facility] Neutrophils [#/volume] in Blood by Automated count 6.09 10*3/uL 1.8-7 .0 [facility] Lymphocytes [#/volume] in Blood by Automated count 0.90 10*3/uL 1.2-4 .0 L [facility] Monocytes [#/volume] in Blood by Automated count 0.66 10*3/uL 0-0.8 [facility] Eosinophils [#/volume] in Blood by Automated count 0.07 10*3/uL 0-0.5 [facility] Basophils [#/volume] in Blood by Automated count 0.02 10*3/uL 0-0.2 [facility] Nucleated erythrocytes/100 leukocytes [Ratio] in Blood by Automated count 0 /100{WBCs} 0-0 [facility] ID Date Data Source [id number] 11/29/2020 03:35:27 PM [facility] Value Range Interpretation Code Description Data Ellen rce(s) Supporting Document(s) Lipase [Enzymatic activity/volume] in Serum or Plasma 37 U/L 13-6 0 [facility] ID Date Data Source [id number] 11/29/2020 03:35:27 PM [facility] Value Range Interpretation Code Description Data Ellen rce(s) Supporting Document(s) Albumin [Mass/volume] in Serum or Plasma by Bromocresol green (BCG) dye binding method 4.8 g/dL 3.5-5.2 [facility] Bilirubin.total [Mass/volume] in Serum or Plasma 2.1 mg/dL <1.2 H [facility] Bilirubin.direct [Mass/volume] in Serum or Plasma 0.3 mg/dL <0.3 H [facility] Alkaline phosphatase [Enzymatic activity/volume] in Serum or Plasma 80 U/L 40-129 [facility] Aspartate aminotransferase [Enzymatic activity/volume] in Serum or Plasma 10 U/L <40 [facility] Alanine aminotransferase [Enzymatic activity/volume] in Seru m or Plasma 8 U/L <41 [facility] Protein [Mass/volume] in Serum or Plasma 6.8 g/dL 6.4-8.3 [facility] ID Date Data Source [id number] 11/29/2020 03:54:58 PM EDT [facility] Name Value Range Interpretation Code Description Data Ellen rce(s) Supporting Document(s) Bicarbonate [Moles/volume] in Serum 24 mmol/L 22-29 [facility] Chloride [Moles/volume] in Serum or Plasma 99 mmol/L 98-107 [facility] Creatinine [Mass/volume] in Serum or Plasma 0.92 mg/dL 0.70-1.20 [facility] Glucose [Mass/volume] in Serum or Plasma 96 mg/dL 70-140 [facility] Potassium [Moles/volume] in Serum or Plasma 4.0 mmol/L 3.4-5.1 [facility] Sodium [Moles/volume] in Serum or Plasma 139 mmol/L 136-145 [facility] Urea nitrogen [Mass/volume] in Serum or Plasma 13 mg/dL 6-20 [facility] Confirmed Anion gap 3 in Serum or Plasma 16 mmol/L 8-15 H [facility] Osmolality of Serum or Plasma by calculation 289 mosm/kg 275-300 [facility] Confirmed Creatinine/Urea nitrogen [Mass Ratio] in Serum or Plasma 14 [facility] Confirmed Calcium [Mass/volume] in Serum or Plasma 9.3 mg/dL 8.6-10.0 [facility] Glomerular filtration rate/1.73 sq M pre dicted among non-blacks [Volume Rate/Area] in Serum or Plasma by Creatinine-based formula (MDRD) >6 0 [facility] Glomerular filtration rate/1.73 sq M pre dicted among blacks [Volume Rate/Area] in Serum or Plasma by Creatinine-based formula (MDRD) >60 [facility] ID Date Data Source [id number] 11/29/2020 06:46:43 AM EDT [facility] Value Range Interpretation Code Description Data Ellen rce(s) Supporting Document(s) [facility] QHIROm1oYzKINnUg09/INLfrMCWxb4CgMBbtRAd8TCtxODYqS9NtCMN3fY7qFLI5DXbWRgNiZmMqBQMt lbm [file] ICAgICAgICAgICAgICAgICAgICAgICAgICAgICAgICAgICAgICAgICAgICAgICAgICAgICAgICAgICAg ICAgICANCiAgICAgICAgICAgICAgICAgICAgICAgIC AgICAgICAgICAgICAgICAgICAgICAgICAgICAgICAgICAgICAgICAgICAgICAgICAgICAgICAgICAgIC AgICAgICAgICAgICAgICANCiAgICAgICAgICAgICAgICAgICAgICAgICAgICAgICAgICAgICAgICAgIC AgICAgICAgICAgICAgICAgICAgICAgICAgICAgICAg ICAgICAgICAgICAgICAgICAgICAgICAgICANCiAgICAgICAgICAgICAgICAgICAgICAgICAgICAgICAg ICAgICAgICAgICAgICAgICAgICAgICAgICAgICAgICAgICAgICAgICAgICAgICAgICAgICAgICAgICAg ICAgICAgICANCiAgICAgICAgICAgICAgICAgICAgIC AgICAgICAgICAgICAgICAgICAgICAgICAgICAgICAgICAgICAgICAgICAgICAgICAgICAgICAgICAgIC AgICAgICAgICAgICAgICAgICANCiAgICAgICAgICAgICAgICAgICAgICAgICAgICAgICAgICAgICAgIC AgICAgICAgICAgICAgICAgICAgICAgICAgICAgICAg ICAgICAgICAgICAgICAgICAgICAgICAgICAgICANCiAgICAgICAgICAgICAgICAgICAgICAgICAgICAg ICAgICAgICAgICAgICAgICAgICAgICAgICAgICAgICAgICAgICAgICAgICAgICAgICAgICAgICAgICAg ICAgICAgICAgICANCiAgICAgICAgICAgICAgICAgIC AgICAgICAgICAgICAgICAgICAgICAgICAgICAgICAgICAgICAgICAgICAgICAgICAgICAgICAgICAgIC AgICAgICAgICAgICAgICAgICAgICANCiAgICAgICAgICAgICAgICAgICAgICAgICAgICAgICAgICAgIC AgICAgICAgICAgICAgICAgICAgICAgICAgICAgICAg ICAgICAgICAgICAgICAgICAgICAgICAgICAgICAgICANCiAgICAgICAgICAgICAgICAgICAgICAgICAg ICAgICAgICAgICAgICAgICAgICAgICAgICAgICAgICAgICAgICAgICAgICAgICAgICAgICAgICAgICAg ICAgICAgICAgICAgICANCjw/pZByI7sikWGddkW8O7 edZb6OEj1ETP7pw1HjBYAiFHouajQaNcjRImQlSATaKbtFZbf8TQvcMW2QzXNbL3HaR4WyBOnvKW9EDU PeNTUmrZJxXLXgMFWgGuE0TZYdDZgnKT0TiMCbKZezWZOkHPRoNqHrZQNvMUBgPQTfYMCnBFKGFPOyVZ RzAsBoGOzzIB1Vy7JacGM9DDy+Hr6UIK9qr6AfZZuq YuXaOF5tlw6HFRoOYxWhX5KbagE7MZG5EYBuNw6YFTExEYTfoQFlWLFdVGVJDnKlN4JwnN89GUCDVy9+ OLzbtiCmIxyXPpL8TBGwt2IyDXm3GP6GGCJdWMx9jTEdZ49uv3WyjLXlTdcnY1Q2jF0pVe6ehevpXWGw ODOcAZIaPL5mSFRbVQFjOcW7GPLXRE7TDCMfVUUvjD AwTXDwUBBZMJ5PHGdvSZI7BKGgsdEprZTxDMjeQG3KQKSzbeFzWaSlMXGGJOw+Wt5PVT9lc0OuYQmsRL DuVC0fpo6XEOdOWmMqN5F8jXXqO9X1UFzxEr2JJBKtZLImAiQnWYCCYEkzQK3ESE5upkM2GO7GqALsDF XxABIcrQEtXPe9P65xhLTcYLnkGW4XPXD+Claudia+Pg0K GBJiOKYvZPDdGyVjCHLCJcUoR2PcN6NSg0VuP6QfFT77eLshdyBzCCvuDP3SSR2oZILnIIMWOD3AbFIw pA4jdkTfLsDuYYXKIaKlF14dvKSbARAmXWLxNYLhDc7SHREgS0HnxiNheLaxryWoQXHxNJZPVQ2SOUoa wgAbvYJxzLhkCP67kRihNX5DGf4IKjJgZZ7cne1PcQ FpKz8SOHTkCj0PUPUeARGhOMCzHPJ5GQEkNeCjSYgmMKLyENEkWJP2VNZeELXlYN3RDrEfAHOnOmR9JH GjAHLcFRHipf7YOKHgVBCoDaPkJVChCLAkEHZjZJmhNCHuFKDhKWU8ICAeKCRoTZ0DGiNuNSLjGNEeDI iwNBNoROWjdn1JWKHsGWFxGxZaTMQpPJRdZLOeDPsc UJHgAYI8NRsgZFErQUBeGI1WXuEfFCErOLolQHLxTSNqPKUavz2UPBTfRTJnOYF7QWDnEZZjIFGrPAwm BOFaEXV9RUr1BXHkCESuNR8MNzSgPLUlFHB0QHFwGBJeGCPhtm1YNTPaHLNoFKv5QbNjHOAaULWmDJxz LPMcQSX9EfVkQDUuCLVtLZ2TImSpTEOkOVF2QSdtMD NcTHZeye0ROBJtWKKvCwzlGxChUNUuYFMdYNatAONlQXJ8IEJ9FZGuWTLcDK4YRtUwCGOgLYcvRBsnIH ScPQWowv5ISNQoEJFkLAF9ZgHwGGCmDEWgGAulOUCnKKJ2JvX7GPXzATVjHO5NRfKoOIOoGQv5OlYvLM SbCFEnut9KGJQdRJEhTGzgZABlFQJeIRCgEKpcNRTm MMHqKcU2UBAzEWMvFL1VJvWtMFAoJcV9ACocXPBaVWIefh3XMSDoUTEzQZW3UxEwEOZeAOXeQZnhHCId IVUwMYIvPKThRSIqLT8EKdNlJAFnVmS2GchaPICwIVVczp0QKVSfRPNcGqk2NYKiRHAoCDUlLDxuLZJb DTIdFAVgSFWiQGCmUF8AKbMtQRIeGsOuIJBdFSZvGO Crhj5SFCUqUQAzVFZ4XWVqLETwYGWwQBbjZTUhCIE3LFTrDWPmHSFpHQ5XJpQnQYHvBqI1OWYjVPDgAO Thmc2RMEIeNDHiWnZ3WEKnURMjHIFpAPnaKVNiOBN5YNTzMCKiIUTiZH2HFiHdNYJfHaE1TnoeFGIpID Rabh2CwFXbuJrvby4CDLySJu3RzOeaRER7DLesQq9a rCPsJFHxUFNNBj8QscDjMFOqCWSUEWnpAGTeRBWkWSj4Uqt4SeQ8CFQuHzN0JdK8BbW0XXg2ZGT8Dzor ReN7MCE9BigtPkb8Zrn9VQFtSORxIUthOpG1UdbwUlQtLTH+LK0lWSu+Lk6Rp2QokqA8ypKvUWmnGknr Mw1KWGDSK9FEKu== ID Date Data Source [id number] 11/28/2020 10:55:45 AM EDT [facility] Name Value Range Interpretation Code Description Data Ellen rce(s) Supporting Document(s) Progress Note [facility] FHBYDi1lOiOURzKv84/IKHzoMVAlj7IdQNkbANt8BGisDZEiH2QlNWA3hM7tBEE4OFmYVyMaBlZnIYXp lbm [file] T0YNCg== ID Date Data Source [id number] 11/27/2020 08:15:02 PM EDT [facility] MR ABDOMEN WITH AND WITHOUT CONTRAST [...] (IV); COMPARISON: CT ABDOMEN PELVIS WITH CONTRAST [id number] 11/26/2020 8:23 PM FINDINGS: Liver: No mass. [...] rce(s) Supporting Document(s) ID Date Data Source [id number] 11/27/2020 12:07:56 PM [facility] Name Value Range Interpretation Code Description Data [facility](s) Supporting Document(s) [facility] WCXQDn3eAcFBPzVt61/MEXotFGSsr3IiTYyoZKw0NTveQBAiE3TgWJL0kZ2hTJO5MBcQTxEzVgWnCQOc [facility] [file] wm+SERVICE SUPPORT REPRESENTATIVE+W5JfTJe4XSK8yDl17MCwVKje/O/P0D16AdA3wi+5+Lae8gvP8+JBw8utpkT7tcVHc8eVh//e++ [file] AcFEL9Uhu0QJGyGLZ1QBV8AK0gBSNJFv8+IVvfpXImnBymKXGUHaGdMII3WJckOGZBAj5G ID Date Data Source [id number] 11/27/2020 02:36:39 AM EDT [facility] Name Value Range Interpretation Code Description Data Ellen e(s) Supporting Document(s) History and Physical [facility] RGQLFp2eTcQQToLv06/BEUzdUWNzn5DzBJycRLu4KPulGNKrP1IoIIC2xN0gITY3RAtZWgDaRiSmWHWc lbm [file] AgICAgICAgICAgICAgICAgICAgICAgICAgICAgICAg TWHxNVThBGLaEUZlSWLyDSBaUPPpEWWcYAZoODBsQWAdLNXrAJYoBSIbPEIhVZFhGDQtVIWmZZ6SSCNi ICAgICAgICAgICAgICAgICAgICAgICAgICAgICAgICAgICAgICAgICAgICAgICAgICAgICAgICAgICAg ICAgICAgICAgICAgICAgICAgICAgICAgICAgICAgIC SzBWSzPK0NMDMeTWNhONJuSKAwINAyZOBiUOObBHBqZIUoBABeMZDqTRHkDASsQNLfUGNvFGFzJVMoOV WfUEKsNITqWLZtFLOiLHEjTNXlURVfFTAoICTqIOJuECKqJSIrEYDvGRUhPJYiTU7CGMGzZGJzFWJiON AgICAgICAgICAgICAgICAgICAgICAgICAgICAgICAg WHOzCBXoUSRgCHLwBUEdMBMePJBrFINvEHGxZCYuXDJnMWFaLZOgGDThADCzIUFoVDFuKRNlEKJuHC7N ICAgICAgICAgICAgICAgICAgICAgICAgICAgICAgICAgICAgICAgICAgICAgICAgICAgICAgICAgICAg ICAgICAgICAgICAgICAgICAgICAgICAgICAgICAgIC QlVIVuVXHrAM5MKJKmXFNyHYQfQODmJKLbWWAyLXVyTFJoUTGvGDQhTCJxARGbVGFpBOEvOUGtAPMfAK KzXIMvGSAmWEOiCPBhYDFpGIQhQGKmLIBtOGCuYLZpIQAfETSmBZGhHGNsLVRnSVBcTB8QMOSkEPBkWX AgICAgICAgICAgICAgICAgICAgICAgICAgICAgICAg ICAgICAgICAgICAgICAgICAgICAgICAgICAgICAgICAgICAgICAgICAgICAgICAgICAgICAgICAgICAg YH2PYNYuNGOsWCYmMPMqKPBkNJFsDKIvAUUpBPZrCVZnEDFdGQIfDAMgUWNqZGRfHNIdIVTsASAzTMOu ICAgICAgICAgICAgICAgICAgICAgICAgICAgICAgIC AuNEKsQBFxDBFiVZ3CRVYyVSMwYGTyZLJxDKSmQDCdSTIdEPHjZBGfTEUaTJEyIWHbEXTfRBGuJLNbPL FeKPSpQPDzPGGvKZYkUNNbKRSyQUZfUPMbDZPgPMNkBHUwZRVsJQUeWROtQINqUOUlOQEvNQ0RCB87pX Uyv3O4NBHpUV4eacw/Ro6MAOftcdPpgHIsZA0AIaUv KC6guf6MZhYbVK1iwy3OGMtXYaBwO1N3gIKaCKHxIYMWIiKaE44mQCocHv60UMovQDIyAyRoAJf6Ny4L TeBqX3viQBMkBxH4ZHJlFvV5RSBhYbA0VMAmVlQwBWWpFMRvEHNbKBXCHPD1WDZlRzPlQyDxQKHzCU9T IFChJ123ohZzLr3IIr1JRqGqJJ7blj3NZftyWDVhOr jUTia4TUlcQH1XbPCosPOnIUAdQIXFXdWtZ9kju9ViIipyYQFNCGdxBU8Ti0RmiHUfZRm+Me6MQH8to6 SjHGddUESoCC0btp5JAWkKWvBgZ4SuwEjjMOjtVKUtfAKTEXI7JJ0iEnIDoC1vnZXqGBZVQxRQQKL4XT cyMbPfBvIpWONtWCw5QNHVHIdPOwUzA4Urz1FdBaL7 GGKoUmEuHOlzPFOkLmR8NP10zGaqHG2EJJHuBDQlTA33UWV6NGXgPx2OVy6RYeZgIU0oaw9MDndnFGJb KypTBut7SOatTR7GbITgL1DlcCRbx1pIAhIdN8FKJNJ9ZJMkPr7UWNBvDoAoCWZbZGznQD8qBJGeBIBP yMcbzlR1MC9JZK5zxxUrTB8FBvDyPf9vWl7LXuJiN2 ZfN6YbWQJuNKWJLCdsAH4MHTmrXF5kUQ7Is4TFsTRacX6ork8BIEFcDGQqQncgro2XUygwW2B5aHspWG HlQpfxUHFMJIhoBX9NPTUlWIX4FNSfPaAhGMQJHdPuI72xLL8LV4Nqx98jUsL5VCWtCsNdLCjpUG61wM xgzzLfhVIxfQlhRR8QOn1+DQplbmRvYmoNCnhyZWYN ErKdWLULNjCrNQTiKRThEODhOyQ6UwAkLq4LAFIcZPIxQGZaToErVPBgQASrBMrkCDZwQLW7DhB6UPXd XMTiAR5SVrFgAPYfLUUrRcIaPYQeHZEmba1VEEStKEOgQBN6FzIaIJItZPMnEWndPCFoSFD6URY6JJNl XJHrQA9AAnRfKLDzOCT5MGueXHAsDBLpja1TXZOxBH JsUKo7MQUqNCSxQZDaOVdxLALkMRP5AKOaZRVgJPFiJF0RHaZyZHDvPDWrUABcLUUjXUXoja9SAJVnLO XaXvIrCSSxBFFyADPfEYazKRUbVCA7BHS1EGCbZNSqPC6HCeUvEXCzIIQuWMQoRAIjXKGdrw3TERFoPX LqWWw0HcLpNQVrMRYqDVffJXRjSYX3NFL0BHIgOEGd XW0AQzVwAEViXgF0TBUtHAFyCDFwka1LJPMwSFTjSAMqVJStMSBzCIRoMKirVZXtIFS6JaBuUKBeRSZk SR7WHgEmCKPbRmZ9TGrlJFYpTJFsws4RPQJyTEMzMwx3DtTvSBEiIMIiTUucSDOfQAU0WFp1NHJzFEZd YK3ERkQoLOCyAzvyLQkwBGXuYLPzlx4WCHCiRKFrFI SgUkEbGKCqKYUhJEviCIBtDZK0VTZ0DIOcOIJaIJ3NCrZaLIIkNmg1HEAiXXBdFTCnkg8HGPWkBFZtVE C7WvHnFOWvGQEzLPpjLVVpSBLqRgMaAHVsXALyPQ9GQxSdSDPlBvB5FQDvUAOrGMVepi4VLJNoKQMsRX ftTHEsIPVhBOFqRZjxPKBhIAWpVJO8FPCuDASiWE3M WzUmKDIpAhEvVTVhZJYvZSEwev3XPCCsZMH9AaC0QRNtIOOfMVKjIEhpSJQaFDIiQIg1XEKfTZQtMC2Y MwVrXKDiKDRdTMrqGDXdBUEyuz7LDJQgPQN7FGE0PkLwIJUyXGVzSGafVYGbTYS8DFcdFXLwTOIeZS5S ThOmFNLkKFFsFnHwFRDwDAHyzn9RPLElTRH3UdJwPg BaFHZvZZUlZFptEIEeCNT9VHj0CZWdDWSlLY0HHlTzWDEmBMY5KKUaIKGqHXPihu3DnQXgfVaads3ATC hMQq6XcVxtLLAjVAjqNo1chSWbINWcHMCZYc6HlnZlUBLmXOMWGHbaJPKtLBM0JDCwYIEcCzKtP0PxCS LuA9F2OuI2LMZsNiM9TJt1KkY2RWtzRsEnJWXrAdBz RaZ7AmR2SCAvQfZ5SeH5EcB6VaV+SJ0cKQp+Cf5Oy1ZjlsR5kpGtZBw7Ggs8IR8DGEZCK4VZVi== ID Date Data Source [id number] 11/27/2020 01:35:49 AM EDT [facility] CT HEAD WITH AND WITHOUT CONTRAST [id number] INAL RESULTInterpreted by:Terrell Ritchie MDINDICATION: Trauma.TECHNIQUE: Multiaxial [...] rce(s) Supporting Document(s) ID Date Data Source [id number] 11/26/2020 09:55:25 PM EDT [facility] CT THORAX WITH CONTRAST [id number] RESUL TInterpreted by:LUISITO KirkROCEDURE INFORMATION: Exam: CT [...] clinical indication); or iterative reconstruction. Contrast material: [id number]; Contrast volume: 100 ml; Contrast route: INTRAVENOUS [...] rce(s) Supporting Document(s) ID Date Data Source [id number] 11/26/2020 09:51:30 PM EDT [facility] CT ABDOMEN PELVIS WITH CONTRAST [id number] AL RESULTInterpreted by:LUISITO KirkROCEDURE INFORMATION: Exam: CT [...] clinical indication); or iterative reconstruction. Contrast material: [id number]; Contrast volume: 100 ml; Contrast route: INTRAVENOUS (IV); Other contrast: Oral, ekvi197, 40; COMPARISON: CT ABD PELVIS W/ IV [...] rce(s) Supporting Document(s) ID Date Data Source [id number] 11/26/2020 07:07:00 PM EDT [facility] Name Value Range Interpretation Code Description Data Ellen rce(s) Supporting Document(s) SARS-CoV-2 RNA 2019 nCoV Real-Time RT-PCR: NOT DETECTED [facility] This lab was ordered by [facility] and reported by [facility]. 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 [facility] Patient has symptoms related to [facility] When did you start to experience these symptoms [Date and time] [Phen X] [facility] Patient was hospitalized because of this condition [facility] patient was admitted to ICU for [facility] Patient resides in a congregate care setting [facility] status [facility] ID Date Data Source [id number] 11/26/2020 10:18:15 PM EDT [facility] Service Cmnt XXX-Imp : NoneRespiratory P CR Panel : PCR ResultsMicroorganism XXX Cult : See Labs Tab for 2019 nCoV RT-PCR resultsHAdV DNA QI LARRY+non-probe : Not DetectedHCoV [id number] Nph QI LARRY+non-probe : Not DetectedHCoV [id number] Nph QI LARRY+non-probe : Not [id number] RNA Nph QI LARRY+non-probe : Not [id number] RNA Upper resp QI LARRY+probe : Not [...] DNA Nph Q LARRY+non-probe : Not DetectedB [id number] DNA Nph LARRY+non-probe : Not Detected Name Value Range Interpretation Code Description Data Ellen rce(s) Supporting Document(s) ID Date Data Source [id number] 11/26/2020 06:47:23 PM [facility] Name Value Range Interpretation Code Description Data Ellen rce(s) Supporting Document(s) Lactate [Moles/volume] in Serum or Plasma 0.6 mmol/l 0.5-2.2 [facility] ID Date Data Source [id number] 11/26/2020 05:45:00 PM [facility] Name Value Range Interpretation Code Description Data Ellen rce(s) Supporting Document(s) Leukocytes [#/volume] in Blood by Automated count 8.2 10*3/uL 4-10 [facility] Erythrocytes [#/volume] in Blood by Automated count 4.71 10*6/uL 4.6- 6.1 [facility] Hemoglobin [Mass/volume] in Blood 14.0 g/dL 13.5-18 [facility] Hematocrit [Volume Fraction] of Blood by Automated count 42.4 % 4 1-53 [facility] Erythrocyte mean corpuscular volume [Entitic volume] by Auto mated count 90.1 fL 80-96 [facility] Erythrocyte mean corpuscular hemoglobin [Entitic mass] by Automated count 29.8 pg 27-33 [facility] Erythrocyte mean corpuscular hemoglobin concentration [Mass/volume] by Automated count 33.1 g/dL 32.0-36.0 [facility] distribution width [Ratio] by Automated count 13.3 % 11.5-14.5 [facility] Platelets [#/volume] in Blood by Automated count 266 10*3/uL 150-400 [facility] Differential cell count method - Blood [facility] Neutrophils/100 leukocytes in Blood by Automated count 76 % [facility] Lymphocytes/100 leukocytes in Blood by Automated count 16 % [facility] Monocytes/100 leukocytes in Blood by Automated count 5 % [facility] Eosinophils/100 leukocytes in Blood by Automated count 3 % [facility] Basophils/100 leukocytes in Blood by Automated count 0 % [facility] Neutrophils [#/volume] in Blood by Automated count 6.23 10*3/uL 1.8-7 .0 [facility] Lymphocytes [#/volume] in Blood by Automated count 1.28 10*3/uL 1.2-4 .0 [facility] Monocytes [#/volume] in Blood by Automated count 0.44 10*3/uL 0-0.8 [facility] Eosinophils [#/volume] in Blood by Automated count 0.26 10*3/uL 0-0.5 [facility] Basophils [#/volume] in Blood by Automated count 0.03 10*3/uL 0-0.2 [facility] Nucleated erythrocytes/100 leukocytes [Ratio] in Blood by Automated count 0 /100{WBCs} 0-0 [facility] ID Date Data Source [id number] 11/26/2020 06:18:12 PM [facility] Value Range Interpretation Code Description Data Ellen rce(s) Supporting Document(s) Albumin [Mass/volume] in Serum or Plasma by Bromocresol green (BCG) dye binding method 4.7 g/dL 3.5-5.2 [facility] Bilirubin.total [Mass/volume] in Serum or Plasma 1.6 mg/dL <1.2 H [facility] Bilirubin.direct [Mass/volume] in Serum or Plasma 0.3 mg/dL <0.3 H [facility] Alkaline phosphatase [Enzymatic activity/volume] in Serum or Plasma 81 U/L 40-129 [facility] Aspartate aminotransferase [Enzymatic activity/volume] in Serum or Plasma 10 U/L <40 [facility] Alanine aminotransferase [Enzymatic activity/volume] in Seru m or Plasma 7 U/L <41 [facility] Protein [Mass/volume] in Serum or Plasma 7.0 g/dL 6.4-8.3 [facility] ID Date Data Source [id number] 11/26/2020 06:18:12 PM [facility] Value Range Interpretation Code Description Data Ellen rce(s) Supporting Document(s) Lipase [Enzymatic activity/volume] in Serum or Plasma 32 U/L 13-6 0 [facility] ID Date Data Source [id number] 11/26/2020 06:31:56 PM [facility] Value Range Interpretation Code Description Data Ellen rce(s) Supporting Document(s) Bicarbonate [Moles/volume] in Serum 26 mmol/L 22-29 [facility] Chloride [Moles/volume] in Serum or Plasma 98 mmol/L 98-107 [facility] Creatinine [Mass/volume] in Serum or Plasma 0.89 mg/dL 0.70-1.20 [facility] Glucose [Mass/volume] in Serum or Plasma 79 mg/dL 70-140 [facility] Confirmed Potassium [Moles/volume] in Serum or Plasma 4.0 mmol/L 3.4-5.1 [facility] Sodium [Moles/volume] in Serum or Plasma 136 mmol/L 136-145 [facility] Urea nitrogen [Mass/volume] in Serum or Plasma 7 mg/dL 6-20 [facility] Anion gap 3 in Serum or Plasma 12 mmol/L 8-15 [facility] Osmolality of Serum or Plasma by calculation 279 mosm/kg 275-300 [facility] Creatinine/Urea nitrogen [Mass Ratio] in Serum or Plasma 8 [facility] Calcium [Mass/volume] in Serum or Plasma 9.7 mg/dL 8.6-10.0 [facility] Glomerular filtration rate/1.73 sq M pre dicted among non-blacks [Volume Rate/Area] in Serum or Plasma by Creatinine-based formula (MDRD) >6 0 [facility] Glomerular filtration rate/1.73 sq M pre dicted among blacks [Volume Rate/Area] in Serum or Plasma by Creatinine-based formula (MDRD) >60 [facility] ID Date Data Source [id number] 11/26/2020 07:38:36 PM EDT [facility] Name Value Range Interpretation Code Description Data Ellen rce(s) Supporting Document(s) aPTT in Platelet poor plasma by Coagulation assay 33.2 s 24.0-33. 0 H [facility] ID Date Data Source [id number] 11/26/2020 07:38:36 PM EDT [facility] Value Range Interpretation Code Description Data Ellen rce(s) Supporting Document(s) Prothrombin time (PT) 13.9 s 11.6-14.0 [facility] INR in Platelet poor plasma by Coagulation assay 1.11 [facility] Routine intensity oral anticoagulation I NR is typically 2.0-3.0. Target INR must be clinically individualized. ID Date Data Source [id number] 11/24/2020 03:29:00 PM EDT [facility] [address] [place] [address] PHONE: [phone] FAX: [phone] Name .................. : ALECIA Gaviria Acct Number.................. : [id number] ROOM. ................. : [facility] MR Number ................... : [id number] Stay type ............. : E/R Discharge Date......... ... : 11/24/20 Admit Date ......... : 11/23/20 Admit Phys .................... : LEXUS VÁSQUEZ Date of ....... : 1985 Family Phys ................... : NO PCP Phone .................. : [phone] Age ................................ : 35 Film# .................. .:[id number] Sex ................................. : M Unsigned transcriptions are preliminary reports and do not represent a medical or legal document CT ABD & PELVIS W/ IV ONLY [id number] COMPLETE:11/23/20 23:38 09985 Reason(s): epigastric pain, known pancreatic mass on [...] fat. Based on Page [address] [facility] [address] [place] [address] PHONE: [phone] FAX: [phone] Name .................. : ALECIA Gaviria Acct Number.................. : [id number] ROOM. ................. : [facility]-20 Number ................... : [id number] Stay type ............. : E/R Discharge Date......... ... : 11/24/20 Admit Date ......... : 11/23/20 Admit Phys .................... : LEXUS VÁSQUEZ Date of ....... : 1985 Family Phys ................... : NO PCP Phone .................. : [phone] Age ................................ : 35 Film# .................. .:[id number] Sex ................................. : M Unsigned transcriptions are preliminary reports and do not represent a medical or legal document CT ABD & PELVIS W/ IV ONLY [id number] COMPLETE:11/23/20 23:38 11682 Reason(s): epigastric pain, known pancreatic mass on CTon 11/14 in [facility] subsequently described findings this is most [...] distention or pneumatosis. Page [address] [facility] [address] [place] [address] PHONE: [phone] FAX: [phone] Name .................. : ALECIA Gaviria Acct Number.................. : [id number] ROOM. ................. : [facility]-20 MR Number ................... : [id number] Stay type ............. : E/R Discharge Date......... ... : 11/24/20 Admit Date ......... : 11/23/20 Admit Phys .................... : LEXUS VÁSQUEZ Date of ....... : 1985 Family Phys ................... : NO PCP Phone .................. : [phone] Age ................................ : 35 Film# .................. .:[id number] Sex ................................. : M Unsigned transcriptions are preliminary reports and do not represent a medical or legal document CT ABD & PELVIS W/ IV ONLY [id number] COMPLETE:11/23/20 23:38 50397 Reason(s): epigastric pain, known pancreatic mass on [...] rce(s) Supporting Document(s) ID Date Data Source [id number] 11/23/2020 10:52:00 PM EDT [facility] 1 OrderSheet [facility] Emergency Department [address] [place] [address] Phone #: [phone]- [phone] 11/23/2020 22:44 Patient: SHERRIE BYRNE Sex: M [...] Only Nicolasa Alberts(Oxygen?(No)) Nancy; R.NYoshi(IV?(Yes)) 2 OrderSheet [facility] Emergency Department [address] [place] [address] Phone #: ext- [phone] 11/23/2020 22:44 [id number] Sex[facility] M : 1985 Age: 35y Reason for Study: epigastric pain, [facility]/DRIP/FLUID ORDERSOrder Description Priority Entered Acknowledged InitialedLR IV : Bolus 500 23:37 11/23/2020 00:12 11/24/2020mL, then 150 mL/hr Nicolsaa Alberts M.D.; R.N.Morphine IVP 4 mg 23:38 [...] rce(s) Supporting Document(s) ID Date Data Source [id number] 11/23/2020 10:52:00 PM EDT [facility] 1 Medication Reconciliation Report [facility] Emergency Department [address] [place] [address] Phone #: ext- [phone] 11/23/2020 22:44 Patient: [...] rce(s) Supporting Document(s) ID Date Data Source [id number] 11/23/2020 10:52:00 PM EDT [facility] 1 Medication Administration Record [facility] Emergency Department [address] [place] [address] Phone #: ext- [phone] 11/23/2020 22:44 Patient: SHERRIE BYRNE Sex: M : 1985 Age: 35yWeight: 83.9 kgHeight/Length: 71 inBMI: 25.8ALLERGIES: Sulfa Antibiotics Date/Time Medication Administered Medication OrderedStart LR [IV] LR IV : Bolus 500 mL, then 04396:06 11/24/2020 Dose: IV Fluids mL/hrTina Lonnie Mckenna [...] rce(s) Supporting Document(s) ID Date Data Source [id number] 11/23/2020 10:52:00 PM EDT [facility] 1 General Instructions [facility] Emergency Department [address] [place] [address] Phone #: ext- [phone] 11/23/2020 22:44 Patient: [...] department as needed. Follow up with a ramp service man and surgeon today.Reason for referral: evaluation and [...] been discussed with the 2 General Instructions [facility] Emergency Department [address] [place] [address] Phone #: ext- [phone] 11/23/2020 22:44 Patient: SHERRIE BYRNE Sex: M [...] I understand that a doctor at this [facility] wants to give me certain medicalcare. The doctor explained that care to me, and I understand what that care is. The doctor also explainedto me what could happen to me if I leave here without having that care, and I understand what he said. Iwant to leave this [facility] without receiving the recommended care. I know that I am welcome to return [facility] at any time to receive the recommended care or any other care that I may need at any time,regardless of my ability to pay for such care.(Electronically signed by Nicolasa Alberts M.D. 11/24/2020 03:35) Name Value Range Interpretation Code Description Data Ellen rce(s) Supporting Document(s) ID Date Data Source [id number] 11/23/2020 10:52:00 PM EDT [facility] 1 Clinical Report - Nurses [facility] Emergency Department [address] [place] [address] Phone #: ext- [phone] 11/23/2020 22:44 Patient: SHERRIE BYRNE Sex: M : 1985 Age: 35yTRIAGETriage time: 22:45 11/23/2020.Chief Complaint: CHEST PAIN.( reports that it is a recurrent issue. Tonight at 8 pm he was so uncomfortable that he couldn't sleep.). Hehas had nausea. 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 ABUSE ASSESSMENT: No report of abuse. FALL RISK ASSESSMENT: Fall risk assessment completed. Risk factors identified include severe pain. Fall interventions initiated. Bed in low position. Brakes on. --23:03 11/23/20 Sade Mckenna R.N.PHYSICAL GDFBLXEUTH12:20 11/23/20. Ambulatory to room.GENERAL / NEURO / [...] Mckenna R.N. 3 Clinical Report - Nurses [facility] Emergency Department [address] [place] [address] Phone #: ext- [phone] 11/23/2020 22:44 Patient: SHERRIE BYRNE Sex: M : 1985 Age: 35y Patient transported to [place] by wheelchair with fuel testing technician. --00:11/24/20 Sade Mckenna R.N. 23:00 11/23/20. environmental monitoring specialist, NIBP monitor and pulse oximeter placed on [...] rce(s) Supporting Document(s) ID Date Data Source [id number] 11/23/2020 10:52:00 PM EDT [facility] 1 Clinical Report - Physicians/Mid Levels [facility] Emergency Department [address] [place] [address] Phone #: ext- [phone] 11/23/2020 22:44 Patient: [...] (pt lives 1 hr from here, past [place], was seen at [facility] ER on 11/14 for abdominal pain, had CTAP w IV that showed possible pancreatic neoplasm w mets and gallstones; pt w as referred to Dr. Richardson today who told him about results and was not sure; pt visited a friend here in [facility] then pain was too bad so came here). No recent travel. Similar symptoms previously. ( recently, in last 2 weeks, worse tonight). Recent medical care: The patient was seen recently by a health care provider. ( today at Dr. Richardson's office, surgeon in [place]).REVIEW OF SYSTEMSNo constipation, black stools, hematemesis, difficulty [...] Sulfa Antibiotics. 2 Clinical Report - Physicians/Mid [facility] Emergency Department [address] [place] [address] Phone #: [phone]- [phone] 11/23/2020 22:44 Patient: SHERRIE BYRNE Sex: M [...] No sensory deficit.LABS, X-RAYS, AND EKGAbdominal CT: [facility] Call: [phone] Online chat: [email or web address] Name: SHERRIE BYRNE (Age): 1985 35 Gender: MDate of Exam: 11/24/2020 [id number] Physician: NICOLASA ALBERTS # of Images: 565Ordered As: CT ABDOMEN/PELVIS WPROCEDURE INFORMATION:Exam: CT Abdomen And Pelvis With ContrastExam date and time: 11/24/2020 12:28 AMAge: 35 years oldClinical indication: Abdominal pain; Patient HX: Epigastric pain, known pancreatic mass MA on CTon 11/14 in at other facilityTECHNIQUE:Imaging protocol: Computed tomography of the abdomen and pelvis with contrast. 3 Clinical Report - Physicians/Mid Levels [facility] Emergency Department [address] [place] [address] Phone #: ext- [phone] 11/23/2020 22:44 Patient: [...] preliminary and final interpretation, please notify ad [email or web address].If you do not have access to our QA portal, call our QA team at [phone] STATEMENTThis report is intended only for the use of the referring physician, and only in accordance with law, If youreceived this in error, call [phone] 2 of 2IMPRESSION:1. Dilated small bowel consistent [...] disease. 4 Clinical Report - Physicians/Mid Levels [facility] [address] [place] [address] Phone #: ext- [phone] 11/23/2020 22:44 Patient: SHERRIE BYRNE Sex: M : 1985 Age: 35y6. Left lower lobe pulmonary nodule. Follow-up as clinically indicated.Thank you for allowing us to participate in the care of your patient.Dictated and Authenticated by: Nikita Cardoza MD11/24/2020 1:44 AM Eastern Time ([facility]). Study type: abdomen and pelvis. Abdominal [...] 10.2) 5 Clinical Report - Physicians/Mid Levels [facility] Emergency Department [address] [place] [address] Phone #: ext- [phone] 11/23/2020 22:44 Patient: [...] Male GFR Interprentation 20-49 yrs >60 mL/min Mtnjlt53-86 yrs >56 mL/min Normal 60-69 yrs >49 mL/min Normal 70-79yrs>42 mL/min Normal 80 and above >35 mL/min Normal Female GFRInterpretation 20-39 yrs >60 mL/min Normal 40-49 yrs >58 mL/minNormal 50-59 yrs >51 mL/min Normal 60-69 yrs >45 mL/min Ymicir56-71 yrs >39 mL/min Normal 80 and above >32 mL/min NormalLipase: (SILVERIO: 11/23/2020 22:55) ( [facility] 11/24/[facility] 00:08) Final results Test Result Flag Units (Reference) LIPASE 30 U/L (13 - 60)UA REFLEX TO UA CULTURE: (SILVERIO: 11/24/2020 01:05) ( [facility] 11/24/2020 01:26) Final results Test Result Flag [...] (NORMAL: NONELactic Acid: (SILVERIO: 11/23/2020 22:55) ( [facility] 11/23/2020 23:50) Final results Test Result Flag Units (Reference) LACTIC ACID 1.3 MMOL/L (0.2 - 2.2)CPK: (SILVERIO: 11/23/2020 22:55) ( [facility] 11/24/2020 00:09) Final results Test Result Flag Units (Reference) CPK 73 U/L (30 - 170)CRP: (SILVERIO: 11/23/2020 22:55) ( [facility] 11/24/2020 00:09) Final results Test Result Flag Units (Reference) CRP-HS 2.54 MG/L (1.00 - 3.00) CDC/S HS-CRP CUT-OFF: RELATIVE RISK: <1.0 mg/LLow 1.0 - 3.0 mg/L Average >3.0 mg/LHigh Optimally, the average of HS-CRP results repeated two weeks apart should be used for 6 Clinical Report - Physicians/Mid Levels [facility] Emergency Department [address] [place] [address] Phone #: ext- [phone] 11/23/2020 22:44 Patient: SHERRIE BYRNE Sex: M : 1985 Age: 35y risk assessment. Troponin-T: (SILVERIO: 11/23/2020 22:55) ( [facility] 11/24/2020 00:08) Final results Test Result Flag [...] end up anywhere since most hospitals in [facility] are full because of Covid and Vaccine mandate; pt prefers to sign out AMA and he will have his father drive him to [place] in the morning; pt is capable of deciding AMA; will wait for morphine to wear off before he leaves the premises; pt understands d/c instructions and urgency to get this evaluated since 1st s imilar CT was at [facility] on 11/24/20. Patient counseled in person regarding [...] QUICK 7 Clinical Report - Physicians/Mid Levels [facility] Emergency Department [address] [place] [address] Phone #: ext- [phone] 11/23/2020 22:44 Patient: [...] department as needed. Follow up with a ramp service man and surgeon today.Reason for referral: evaluation and [...] know that I am welcome to return [facility] at any time to receive the recommended care or any other care that I may need at any time,regardless of my ability to pay for such care. 8 Clinical Report - Physicians/Mid Levels [facility] Emergency Department [address] [place] [address] Phone #: ext- [phone] 11/23/2020 22:44 Patient: SHERRIE BYRNE Sex: M : 1985 Age: 35y(Electronically signed by Nicolasa Alberts M.D. 11/24/2020 03:35) Name Value Range Interpretation Code Description Data Ellen rce(s) Supporting Document(s) ID Date Data Source [id number] 11/24/2020 01:26:00 AM EDT [facility] Name Value Range Interpretation Code Description Data Ellen rce(s) Supporting Document(s) UA REFLEX TO UA CULTURE [facility] URINALYSIS SOURCE R [facility] COLOR yellow NORMAL: Yellow [facility] CLARITY clear NORMAL: Clear [facility] Specific gravity of Urine by Test strip 1.005 1.001 - 1.030 [facility] pH 5 5 - 9 [facility] Glucose [Mass/volume] in Urine by Test strip NORM NORMAL: Negat [facility] Bilirubin.total [Presence] in Urine by Test strip NEG NORMAL: Negative [facility] Ketones [Presence] in Urine by Test strip NEG NORMAL: Negative [facility] Protein [Mass/volume] in Urine by Test strip 15 NORMAL: Negat [facility] Nitrite [Presence] in Urine by Test strip NEG NORMAL: Negative [facility] BLOOD NEG NORMAL: Negative [facility] Leukocyte esterase [Presence] in Urine by Test strip NEG VLAD L: Negative [facility] Urobilinogen [Mass/volume] in Urine by Test strip NOR less joleen n 1.0 mg/dL [facility] MICROSCOPIC See Below [facility] ital WBC None Seen NORMAL: NONE SEEN [facility] Erythrocytes [#/volume] in Urine by Test strip 0 - 1 NORMAL: NON E SEEN [facility] EPITHELIAL FEW NORMAL: NONE SEEN [facility] ID Date Data Source [id number] 11/24/2020 12:09:00 AM EDT [facility] Name Value Range Interpretation Code Description Data Ellen rce(s) Supporting Document(s) C reactive protein [Mass/volume] in Serum or Plasma by High sensitivity method 2.54 MG/L 1.00 - 3.00 [facility] CDC/S HS-CRP CUT-OFF: RELATIVE RISK: <1.0 mg/L Low 1.0 - 3.0 mg/L Average >3.0 mg/L High Optimally, the average of HS-CRP results repeated two weeks apart should be used for risk assessment. ID Date Data Source [id number] 11/24/2020 12:08:00 AM EDT [facility] Name Value Range Interpretation Code Description Data Ellen rce(s) Supporting Document(s) Creatine kinase [Enzymatic activity/volume] in Serum or Plasma 7 3 U/L 30 - 170 [facility] ID Date Data Source [id number] 11/24/2020 12:08:00 AM EDT [facility] Name Value Range Interpretation Code Description Data Ellen rce(s) Supporting Document(s) Lipase [Enzymatic activity/volume] in Serum or Plasma 30 U/L 13 - 60 [facility] ID Date Data Source [id number] 11/24/2020 12:08:00 AM EDT [facility] Name Value Range Interpretation Code Description Data Ellen rce(s) Supporting Document(s) COMPREHENSIVE METABOLIC PANEL [facility] COMPREHENSIVE METABOLIC PANEL Sodium [Moles/volume] in Serum or Plasma 140 mEq/L 134 - 153 [facility] Potassium [Moles/volume] in Serum or Plasma 4.0 mEq/L 3.6 - 5.0 [facility] Chloride [Moles/volume] in Serum or Plasma 102 mEq/L 98 - 107 [facility] Carbon dioxide, total [Moles/volume] in Serum or Plasma 26 MEQ/L 22 - 30 [facility] Glucose [Mass/volume] in Serum or Plasma 109 MG/DL 70 - 99 H [facility] BUN 8 MG[facility]DL 7 - [facility] Creat[facility] [Mass/volume] in Serum or Plasma 0.9 MG/DL 0.7 - 1.5 [facility] BUN/CREAT 9 8 - 27 [facility] Protein [Mass/volume] in Serum or Plasma 7.2 G/DL 6.3 - 8.2 [facility] Albumin [Mass/volume] in Serum or Plasma 5.2 G/DL 3.9 - 5.0 H [facility] Globulin [Mass/volume] in Serum by calculation 2.0 GM/DL 2.4 - 3.2 L [facility] A/G RATIO 2.6 0.8 - 2.[address] [facility] Calcium [Mass/volume] in Serum or Plasma 9.6 MG/DL 8.4 - 10.2 [facility] Bilirubin.total [Mass/volume] in Serum or Plasma 1.5 MG/DL 0.2 - 1.3 H [facility] Alkaline phosphatase [Enzymatic activity/volume] in Serum or Plasma 89 U/L 38 - 126 [facility] Aspartate aminotransferase [Enzymatic activity/volume] in Serum or Plasma 13 U/L 5 - 40 [facility] Alanine aminotransferase [Enzymatic activity/volume] in Seru m or Plasma 13 U/L 7 - 56 [facility] Anion gap 3 in Serum or Plasma 12.0 mmol/L 8.0 - 16.0 [facility] AGE 35 yrs [facility] NON-AA GFR >60 mL/min [facility] AFR AMER GFR >60 mL/min [facility] Male GFR In terprentation 20-49 [...] >32 mL/min Normal ID Date Data Source [id number] 11/24/2020 12:08:00 AM EDT [facility] Name Value Range Interpretation Code Description Data Ellen rce(s) Supporting Document(s) TROPONIN T <0.01 NG/ML 0.00 - 0.10 [facility] TROPONIN T0.1 ng/ml Recommended as the c linical threshold value forTroponin T. ID Date Data Source [id number] 11/23/2020 11:50:00 PM EDT [facility] Name Value Range Interpretation Code Description Data Ellen rce(s) Supporting Document(s) CBC W/AUTOMATED DIFF [facility] COMPLETE BLOOD COUNT Leukocytes [#/volume] in Blood by Automated count 8.6 10^3/uL 4.2 - 1 1.0 [facility] Erythrocytes [#/volume] in Blood by Automated count 5.07 10^6/uL 4. 50 - 6.30 [facility] Hemoglobin [Mass/volume] in Blood 15.3 g/dL 14.0 - 16.0 [facility] Hematocrit [Volume Fraction] of Blood by Automated count 45.3 % 4 1.0 - 51.0 [facility] Erythrocyte mean corpuscular volume [Entitic volume] by Auto mated count 89.3 fL 80.0 - 94.0 [facility] Erythrocyte mean corpuscular hemoglobin [Entitic mass] by Automated count 30.2 pg 27.0 - 34.0 [facility] Erythrocyte mean corpuscular hemoglobin concentration [Mass/volume] by Automated count 33.8 g/dL 31.0 - 36.0 [facility] Erythrocyte distribution width [Ratio] by Automated count 12.3 % 11.5 - 14.8 [facility] Platelets [#/volume] in Blood by Automated count 317 10^3/uL 150 - 45 0 [facility] Platelet mean volume [Entitic volume] in Blood by Automated count 8.9 fL 7.4 - 10.4 [facility] Neutrophils/100 leukocytes in Blood by Automated count 70.1 % 37. 0 - 80.0 [facility] Lymphocytes/100 leukocytes in Blood by Manual count 19.8 % 25.0 - 40.0 L [facility] Monocytes/100 leukocytes in Blood by Automated count 6.0 % 3.0 - 8.0 [facility] Eosinophils/100 leukocytes in Blood by Automated count 3.5 % 0.0 - 7.0 [facility] Basophils/100 leukocytes in Blood by Automated count 0.3 % 0.0 - 2.0 [facility] %IG 0.3 % 0.0 - 0.[address] [facility] al %NRBC 0.0 % 0.0 - 0.0 [facility] Neutrophils [#/volume] in Blood by Automated count 6.03 10^3/uL 2.00 - 6.90 [facility] Lymphocytes [#/volume] in Blood by Automated count 1.71 10^3/uL 0.60 - 3.40 [facility] Monocytes [#/volume] in Blood by Automated count 0.52 10^3/uL 0.00 - 0.90 [facility] Eosinophils [#/volume] in Blood by Automated count 0.30 10^3/uL 0.00 - 0.70 [facility] Basophils [#/volume] in Blood by Automated count 0.03 10^3/uL 0.00 - 0.20 [facility] #IG 0.03 10^3/uL 0.00 - 0.10 [facility] #NRBC 0.00 10^3/uL 0.00 - 0.00 [facility] MANUAL DIFF NOT INDICATED [facility] RBC MORPH NOT INDICATED [facility] ID Date Data Source [id number] 11/23/2020 11:50:00 PM EDT [facility] Name Value Range Interpretation Code Description Data Ellen rce(s) Supporting Document(s) Lactate [Moles/volume] in Serum or Plasma 1.3 MMOL/L 0.2 - 2.2 [facility] Procedure Social History No Information Vital Signs ID Date Data Source UNK Name Value Range Interpretation Code Description Data Source(s) Body height 70 [in_i] 70 [in_i] [facility]) 5'10" Systolic blood pressure 124 mm[Hg] 124 mm[facility]Hg[facility] Body surface area Derived from formula 2.04 m2 2.04 m2 [facility] ([facility]) Diastolic blood pressure 82 mm[Hg] 82 mm[Hg] [facility] ([facility]) Body temperature 98.2 [degF] 98.2 [degF] [facility] ([facility]) Body weight 189.38 [lb_av] 189.38 [lb_av] [facility] Body mass index (BMI) [Ratio] 27.2 kg/m2 27.2 k g/m2 [facility]) [place] body weight 166 [lb_av] 166 [lb_av] MED[facility] T ([facility]) Body weight 85.900 kg 85.900 kg [facility] ([facility]) Body mass index (BMI) [Ratio] 26.7 kg/m2 26.7 k g/m2 [facility] ([facility]) Body temperature 97.5 [degF] 97.5 [degF] [facility] ([facility]) Body height 72.25 [in_i] 72.25 [in_i] MONAE ([facility]) 6'0.25" Body weight 198.50 [lb_av] 198.50 [lb_av] BÁRBARA T ([facility]) ID Date Data Source [id number] 12/15/2020 01:51:21 PM EDT [facility] Name Value Range Interpretation Code Description Data Source(s) WEIGHT RECORDED 185 lb 185 lb [facility] Body height Measured 71 in 71 in [facility]
[2020-12-15 21:50] LABS: RSV AMPLIFICATION NEGATIVE (NEGATIVE)
--- NOTE | 2020-12-15 23:54 | HPEPDOC ---
[facility] Medical History & Physical Date of Admission Dec 15, 2020 Date of Service: Dec 15, 2020 History and Physical CHIEF COMPLAINT: Uncontrolled abdominal pain HISTORY OF PRESENT ILLNESS: 35-year-old male recently diagnosed with stage IV pancreatic cancer presents to the emergency department because of uncontrolled abdominal pain and decreased appetite. About 1 month ago patient found out he had diagnosis of metastatic pancreatic cancer and started chemotherapy at [facility]. He tells me he is not interested in continuing chemotherapy there at this time due to side effects and feeling like he has limited time and doesn't want to waste and getting chemotherapy. He is complaining of uncontrolled severe 10/10 abdominal pain that is exacerbated by movement and alleviated with rest. It does not radiate but rather affect his entire abdomen. This pain has been progressively getting worse over the past month. He tells me he hasn't had a bowel movement in 1 week but he does pass gas. He's had no appetite with very little fluid or solid intake. He tells me morphine does help with his pain. He's been nauseous but has not vomited other than one time when he first came in. Surgery was consulted from the emergency department Dr quigley who recommended NG tube placement only if he continues to vomit again. Patient will be admitted for pain control and suspected partial small bowel obstruction. PAST MEDICAL/SURGICAL HISTORY: He denies any past medical history Endorses having his appendix ruptured requiring surgery when he was 10 years old SOCIAL HISTORY: Denies alcohol use Denies tobacco use Denies illicit drug use Now living with his parents FAMILY HISTORY: Reviewed and none contributory to this admission ALLERGIES: Please see below. REVIEW OF SYSTEMS: 10 point review of systems complete all negative otherwise stated in HPI HOME MEDICATIONS: Please see below. PHYSICAL EXAMINATION: Constitutional: Awake and alert, in mild apparent distress ENT: Mucosa is dry Respiratory: Lungs CTA bilaterally. No respiratory distress. No use of accessory muscles. Cardiovascular: RRR S1 and S2 are normal, no murmur Gastrointestinal: Abdomen is extremely tender to palpation I wasn't able to fully examine his abdomen due to his severe pain. Visually does not appear distended. I could hear some bowel sounds. Musculoskeletal: No lower extremity edema. Neurologic: No focal neurological deficit. Mental Status: A&O x3, normal affect LABORATORY DATA: See below. IMAGING: See chart MICROBIOLOGY: Please see below. ASSESSMENT/PLAN 35-year-old male with a recent diagnosis of metastatic pancreatic cancer presents with uncontrolled abdominal pain, poor oral intake, suspected partial small bowel obstruction. # Uncontrolled abdominal pain 2/2 metastatic pancreatic cancer: Palliative consult for pain control and GOC discussion. Pain control with IV morphine and IV Dilaudid for breakthrough pain. IVFs, low appetite, appears dehydrated. # Partial SBO with abdominal mass effect contributing: NPO for now given suspected partial SBO. Passing gas but not stool. Last BM last Monday. Surge ry Dr quigley recommends NG tube only if he starts vomiting again. Patient prefers not to have one inserted. Surgery consulted. IV Zofran for Nausea. zofran. Morning team to discus with surgery if he needs repeat CT abdomen imaging based on how his symptoms progresses overnight. # DVT prophylaxis: Heparin A [facility] Vital Signs Vital Signs Date Time Temp Pulse Resp B/P (MAP) Pulse Ox O2 Delivery O2 Flow Rate FiO2 12/15/20 22:45 81 18 152/96 (114) 93 Room Air 12/15/20 18:17 97.7 Laboratory Data Labs 24H Laboratory Tests 2 12/15/20 18:59: Immature Granulocyte % (Auto) 0.5, Neutrophils (%) (Auto) 51.4, Lymphocytes (%) (Auto) 32.0, Monocytes (%) (Auto) 14.1H, Eosinophils (%) (Auto) 1.5, Basophils (%) (Auto) 0.5, Neutrophils # (Auto) 1.1L, Lymphocytes # (Auto) 0.7L, Monocytes # (Auto) 0.3, Eosinophils # (Auto) 0.0, Basophils # (Auto) 0.0, Nucleated Red Blood Cells % (auto) 0.0, Total Bilirubin 1.4H, Direct Bilirubin 0.5H, Aspartate Amino Transf (AST/SGOT) 32, Alanine Aminotransferase (ALT/SGPT) 68, Alkaline Phosphatase 92, Total Protein 7.3, Albumin 3.8, Albumin/Globulin Ratio 1.1, Lipase 463H 12/15/20 19:14: POC Glucose (Misc Panel) 102, POC Sodium (Misc Panel) 137, POC Potassium (Misc Panel) 3.7, POC Chloride (Misc Panel) 96L, POC Total CO2 (Misc Panel) 31.0H, POC Blood Urea Nitrogen (Misc Panel 16, POC Ionized Calcium (Misc Panel) 4.7, POC Creatinine (Misc Panel) 1.0, POC Hematocrit (Misc Panel) 49.0 12/15/20 21:00: Coronavirus (COVID-19)(PCR) NEGATIVE, Influenza Type A (RT-PCR) NEGATIVE, Influenza Type B (RT-PCR) NEGATIVE, Respiratory Syncytial Virus (PCR) NEGATIVE CBC/BMP Laboratory Tests 12/15/20 18:59 Home Medications Scheduled Metoclopramide HCl (Metoclopramide HCl) 10 Mg Tablet, 10 MG PO ACHS Morphine Sulfate (Morphine Sulfate) 15 Mg Tablet, 15 MG PO TID Sennosides (Senna) 8.6 Mg Tablet, 1 TAB PO TID Scheduled PRN Ondansetron HCl (Ondansetron HCl) 8 Mg Tablet, 8 MG PO Q8H PRN for NAUSEA OR VOMITING Allergies Coded Allergies: Sulfa (Sulfonamide Antibiotics) (Verified Allergy, Unknown, unknown, 02/02/20) RACHAEL RODRIGUEZ MD Dec 15, 2020 23:54
--- OUTSIDE RECORDS SUMMARY | 2020-12-16 00:02 | CCD ---
Author Author [facility] Organization [facility] Address Unknown Phone Unavailable Care Team Providers Care Testboard Operator Name Role Phone ED, TEST DEFAULT Unavailable [...] Unavailable Irwin Matthews MD Unavailable Unavailable Irwin Matthesw MD [...] Unavailable Unavailable Ricky, Alejo DO Unavailable Unavailable Ircky, Alejo DO Unavailable Unavailable Ricky, Alejo DO [...] Unavailable Jeramy CHILDS MD Unavailable Unavailable Jeramy CHILSD MD Unavailable Unavailable Jeramy CHILDS MD Unavailable [...] is protected by Article 27-F of the [facility] Public Health law. If you continue you may have access to information: Regarding HIV / AIDS; Provided by facilities licensed or operated by the [facility] Office of Mental Health; or Provided by the [facility] Office for People With Developmental Disabilities. If such information is present, then the following [facility] mandated warning applies: This information has [...] law may result in a fine or detention sentence or both. A general authorization for the release of medical or other information is NOT sufficient authorization for further disc losure. Allergies and Adverse Reactions Type Description Substance Reaction Status Data Source(s ) Propensity to adverse reactions SULFA ANTIBIOTICS SULFA ANTIBIOTICS O ther [facility] Family History Family Member Name Family Member Gender Family Member Status Date o f Status Description Data Source(s) Unknown Male Problem [facility] ([facility]) Encounters Encounter Providers Location Date Indications Data Source(s ) Outpatient Attender: Irwin Matthews MDReferrer: FANI ELLINGTON MD 12/21/2020 12:00:00 AM [facility] Outpatient Attender: Irwin Matthews MDReferrer: FANI ELLINGTON MD 12/16/2020 12:00:00 AM [facility] Outpatient Attender: Kaleigh Hilario 12/15/2020 12:00:00 A M [facility] Outpatient Attender: FANI ELLINGTON MD 12/09/2020 12:00: 00 AM [facility] Malignant neoplasm of pancreas, unspecified [facility] Malignant neoplasm of pancreas, unspecif ied Outpatient Attender: FANI ELLINGTON MD 12/09/2020 12:00:00 AM [facility] Inpatient Attender: TASHIA PHOENIX MD Admitter: TASHIA PHOENIX MDReferrer: TASHIA PHOENIX MD 11/30/2020 12:00:00 AM EDT - 11/30/2020 11:59:00 PM EDT [facility] Inpatient Attender: MAGDALENE MAUREENIRENE RESIDENTReferrer: MAREK JOHNSTON RESIDENT 11/30/2020 12:00:00 AM EDT [facility] Inpatient Attender: Alejo García DOAtten sandy: FANI ELLINGTON MDAttender: MAGDALENE JOHNSTON RESIDENTAttender: TASHIA PHOENIX MDAttender: KESHIA NEWBY MDAttender: PARIS AHN MDAdmitter: MAGDALENE JOHNSTON RESIDENTReferrer: MAGDALENE JOHNSTON RESIDENTConsultant: Alejo García DO [id number] 11/29/2020 12:00:00 AM EDT - 12/05/2020 01:15:00 PM EDT [facility] Nausea Patient discharged. Outpatient Attender: Dana Betts MD [id number] 11/28/2020 10:55:45 AM EDT [facility] Inpatient Attender: YOLY CHILDS MDReferrer: YOLY CHILDS MD 11/27/2020 12:00:00 AM EDT Other specified diseases of pancreas [facility] Other specified diseases of pancreas Inpatient Attender: YOLY CHILDS MDAtt yennifer: TASHIA PHOENIX MDAttender: PARIS AHN MDAttender: DEFAULT EDAdmitter: TASHIA PHOENIX MD [id number] 11/26/2020 12:00:00 AM EDT - 11/28/2020 10:30:00 AM EDT sent by provider [facility] sent by provider Patient discharged. Emergency Attender: NICOLASA ALBERTSConsultant: PCP NO 11/23/2020 10:52:00 PM EDT - 11/24/2020 03:21:00 AM EDT [facility] Patient discharged. Outpatient Attender: SHERRIE Dunaway/Brittney/Gato/Sherry indl 11/23/2020 10:15:00 AM EDT [facility] ([facility], ) OFFICE OUTPATIENT VISIT 15 MINUTES Attender: NELL ENGLISH Phys ical Therapy 10/01/2020 04:00:00 PM EDT [facility] ([facility] ) Outpatient Attender: Frnak Hightower MD Physical Therapy 09/09/2020 0 8:45:00 AM EDT [facility] ([facility] ) Outpatient Attender: NELL ENGLISH Physical Therapy 08/25/2020 1 0:00:00 AM EDT [facility] ([facility] ) Medications Medication Brand [...] A DAY AFTER 1 WEEK SOLD: 09/01/2020 [employer] gabapentin 100 MG Oral Capsule Gabapentin 08/25/2020 12:00:00 AM EDT ORAL active [facility] ([facility]) tizanidine 4 MG Oral Tablet Tizanidine HCL 08/25/2020 12:00:00 AM EDT ORAL active [facility] ([facility] ) tizanidine 4 MG Oral Tablet TIZANIDINE HCL 08/25/2020 12:00:00 AM EDT tablet 60 TAKE ONE TABLET BY MOUTH EVERY 6 HOURS NEEDED TAKE ONE TABLET BY MOUTH EVERY 6 HOURS NEEDED SOLD: 09/01/2020 [facility] Insurance Providers Payer name Policy type / Coverage type Policy ID Covered libertarian ID Covered libertarian's relationship to butler Policy Butler Plan Information [facility] Interlude [facility] () Workers Compensation [id number] Self [id number] [facility] () Workers Compensation [id number] Self [id number] [facility] () Workers Compensation [id number] Self [id number] [id number] Self [id number] MEDICAID M [id number] Self [id number] BCBS EMPIRE STAN DIV [id number] SP [id number] STATE INSURANCE FUND O [id number] S [id number] BCBS EMPIRE STAN DIV [id number] SP [id number] SELF PAY ONLY [id number] SP [id number] O UNAVAILABLE UNAVAILA BLE STATE INSURANCE FUND [id number] SP [id number] SELF PAY UNAVAILABLE SP UNAVAILA BLE NATIONAL GENERAL INSURANCE [id number] SP [id number] MNS MEDICAID [id number] SP [id number] P BCBS OF [place] WATN 306/[id number] SP [id number] BLUE CROSS BLUE SHIELD -O/P [id number] 18 [id number] STATE INSURANCE FUND [id number] SP [id number] STATE INSURANCE FUND [id number] SP [id number] Problems, Conditions, and Diagnoses Code Display Name Description Problem Type Effective Dates Data Source(s) C25.9 Malignant neoplasm of pancreas, unspecif ied Malignant neoplasm of pancreas, unspecified Diagnosis 12/09/2020 12:00:00 AM EDT [facility] Nausea Nausea Diagnosis 11/29/2020 01:32:00 PM ED T [facility] R10.9 Unspecified abdominal pain Unspecified abdominal pain Diagnosis 11/27/2020 05:32:08 PM EDT [facility] K86.89 Other specified diseases of pancreas Oth er specified diseases of pancreas Diagnosis 11/27/2020 05:32:08 PM EDT [facility] sent by provider sent by provider Diagnosis 11/26/2020 12 :15:00 PM EDT [facility] Z8719 Personal history of other diseases of th e digestive system Personal history of other diseases of the digestive system Diagnosis [facility] Procedure and treatment not carried out because of patient's decision for unspecified reasons Procedure and treatment not carried out because of patient's decision for unspecified reasons Diagnosis [facility]/23[facility]2020 [facility] Malignant (primary) neoplasm, unspecifie d Malignant (primary) neoplasm, unspecified Diagnosis 11/23/2020 10:52:00 PM EDT [facility] 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) OFFICE OUTPATIENT VISIT 15 MINUTES 10/01/2020 12:00:00 AM EDT [facility] ([facility]) OFFICE OUTPATIENT VISIT 25 MINUTES 09/09/2020 12:00:00 AM EDT [facility] ([facility]) RADEX SPINE LUMBOSACRAL MINIMUM 4 VIEWS 08/25/2020 12: 00:00 AM EDT [facility] ([facility]) OFFICE OUTPATIENT NEW 45 MINUTES 08/25/2020 12:00:00 A M EDT [facility] ([facility]) Results ID Date Data Source [id number] 12/15/2020 01:51:21 PM EDT [facility] Name Value Range Interpretation Code Description Data Ellen rce(s) Supporting Document(s) Discharge Summary [facility] LNTVTx4gJuQVXtTg82/NQVrhEFTml6WgKMpfUGc4RJknCHIlY6CtSZA0jC7ySBX8RJeNMoDfAgJcJJB9 lbm [file] 9++2gY53gaWXim2Sh5q/85t/QaU6pknD3eI/eef [file] DQo+Pq4Pt5ZswjW8lvKoMDfwRFX2AI7ZXPRUD1MDIj== ID Date Data Source [id number] 12/08/2020 02:00:00 AM EDT [facility] Name Value Range Interpretation Code Description Data Ellen rce(s) Supporting Document(s) SARS coronavirus 2 RNA [Presence] in Res piratory specimen by LARRY with probe detection NEGATIVE [facility] This lab was ordered by [facility] a nd reported by [facility]. ID Date Data Source [id number] 12/06/2020 08:49:24 AM EDT [facility] Name Value Range Interpretation Code Description Data Ellen rce(s) Supporting Document(s) Discharge Summary [facility] HIFGCy0lAqCCPjXe59/JUKrmHUGpx9FrQMzfLSj5QMzlCGGsM0ZqPSJ3kO3jCPJ9LDeWNsGcHqLeLHNc lbm [file] [id number]== ID Date Data Source [id number] 12/05/2020 02:39:26 AM EDT [facility] Name Value Range Interpretation Code Description Data Ellen rce(s) Supporting Document(s) Leukocytes [#/volume] in Blood by Automated count 3.9 10*3/uL 4-10 L [facility] Erythrocytes [#/volume] in Blood by Automated count 4.54 10*6/uL 4.6- 6.1 L [facility] Hemoglobin [Mass/volume] in Blood 13.5 g/dL 13.5-18 [facility] Hematocrit [Volume Fraction] of Blood by Automated count 40.6 % 4 1-53 L [facility] Erythrocyte mean corpuscular volume [Entitic volume] by Auto mated count 89.4 fL 80-96 [facility] Erythrocyte mean corpuscular hemoglobin [Entitic mass] by Automated count 29.7 pg 27-33 [facility] Erythrocyte mean corpuscular hemoglobin concentration [Mass/volume] by Automated count 33.2 g/dL 32.0-[facility] width [Ratio] by Automated count 13.1 % 11.5-14.5 [facility] Platelets [#/volume] in Blood by Automated count 224 10*3/uL 150-400 [facility] Differential cell count method - Blood [facility] Neutrophils/100 leukocytes in Blood by Automated count 91 % [facility] Lymphocytes/100 leukocytes in Blood by Automated count 6 % [facility] Monocytes/100 leukocytes in Blood by Automated count 3 % [facility] Eosinophils/100 leukocytes in Blood by Automated count 0 % [facility] Basophils/100 leukocytes in Blood by Automated count 0 % [facility] Neutrophils [#/volume] in Blood by Automated count 3.58 10*3/uL 1.8-7 .0 [facility] Lymphocytes [#/volume] in Blood by Automated count 0.25 10*3/uL 1.2-4 .0 L [facility] Monocytes [#/volume] in Blood by Automated count 0.10 10*3/uL 0-0.8 [facility] Eosinophils [#/volume] in Blood by Automated count 0.00 10*3/uL 0-0.5 [facility] Basophils [#/volume] in Blood by Automated count 0.00 10*3/uL 0-0.2 [facility] Nucleated erythrocytes/100 leukocytes [Ratio] in Blood by Automated count 0 /100{WBCs} 0-0 [facility] ID Date Data Source [id number] 12/05/2020 02:59:25 AM EDT [facility] Name Value Range Interpretation Code Description Data Ellen rce(s) Supporting Document(s) Albumin [Mass/volume] in Serum or Plasma by Bromocresol green (BCG) dye binding method 4.5 g/dL 3.5-5.2 [facility] Bilirubin.total [Mass/volume] in Serum or Plasma 1.3 mg/dL <1.2 H [facility] Calcium [Mass/volume] in Serum or Plasma 9.2 mg/dL 8.6-10.0 [facility] Chloride [Moles/volume] in Serum or Plasma 99 mmol/L 98-107 [facility] Creatinine [Mass/volume] in Serum or Plasma 0.73 mg/dL 0.70-1.20 [facility] Glucose [Mass/volume] in Serum or Plasma 107 mg/dL 70-140 [facility] Alkaline phosphatase [Enzymatic activity/volume] in Serum or Plasma 65 U/L 40-129 [facility] Potassium [Moles/volume] in Serum or Plasma 4.5 mmol/L 3.4-5.1 [facility] Hemolyzed Protein [Mass/volume] in Serum or Plasma 6.4 g/dL 6.4-8.3 [facility] Sodium [Moles/volume] in Serum or Plasma 133 mmol/L 136-145 L [facility] Aspartate aminotransferase [Enzymatic activity/volume] in Serum or Plasma 118 U/L <40 H [facility] Urea nitrogen [Mass/volume] in Serum or Plasma 15 mg/dL 6-20 [facility] Osmolality of Serum or Plasma by calculation 278 mosm/kg 275-300 [facility] Creatinine/Urea nitrogen [Mass Ratio] in Serum or Plasma 20 [facility] Bicarbonate [Moles/volume] in Serum 23 mmol/L 22-29 [facility] Alanine aminotransferase [Enzymatic activity/volume] in Seru m or Plasma 187 U/L <41 H [facility] Anion gap 3 in Serum or Plasma 12 mmol/L 8-15 [facility] Glomerular filtration rate/1.73 sq M pre dicted among non-blacks [Volume Rate/Area] in Serum or Plasma by Creatinine-based formula (MDRD) >6 0 [facility] Glomerular filtration rate/1.73 sq M pre dicted among blacks [Volume Rate/Area] in Serum or Plasma by Creatinine-based formula (MDRD) >60 [facility] ID Date Data Source [id number] 12/05/2020 02:59:25 AM [facility] Name Value Range Interpretation Code Description Data Ellen rce(s) Supporting Document(s) Magnesium [Mass/volume] in Serum or Plasma 2.5 mg/dL 1.6-2.6 [facility] ID Date Data Source [id number] 12/05/2020 02:59:25 AM [facility] Value Range Interpretation Code Description Data Ellen rce(s) Supporting Document(s) Phosphate [Mass/volume] in Serum or Plasma 3.3 mg/dL 2.5-4.5 [facility] ID Date Data Source [id number] 12/04/2020 12:44:36 AM [facility] Value Range Interpretation Code Description Data Ellen rce(s) Supporting Document(s) Leukocytes [#/volume] in Blood by Automated count 7.2 10*3/uL 4-10 [facility] Erythrocytes [#/volume] in Blood by Automated count 4.35 10*6/uL 4.6- 6.1 L [facility] Hemoglobin [Mass/volume] in Blood 12.9 g/dL 13.5-18 L [facility] Hematocrit [Volume Fraction] of Blood by Automated count 39.0 % 4 1-53 L [facility] Erythrocyte mean corpuscular volume [Entitic volume] by Auto mated count 89.6 fL 80-96 [facility] Erythrocyte mean corpuscular hemoglobin [Entitic mass] by Automated count 29.6 pg 27-33 [facility] Erythrocyte mean corpuscular hemoglobin concentration [Mass/volume] by Automated count 33.0 g/dL 32.0-36.0 [facility] E[facility]th[facility] distribution width [Ratio] by Automated count 13.2 % 11.5-14.5 [facility] Platelets [#/volume] in Blood by Automated count 265 10*3/uL 150-400 [facility] Differential cell count method - Blood [facility] Neutrophils/100 leukocytes in Blood by Automated count 88 % [facility] Lymphocytes/100 leukocytes in Blood by Automated count 5 % [facility] Monocytes/100 leukocytes in Blood by Automated count 7 % [facility] Eosinophils/100 leukocytes in Blood by Automated count 0 % [facility] Basophils/100 leukocytes in Blood by Automated count 0 % [facility] Neutrophils [#/volume] in Blood by Automated count 6.34 10*3/uL 1.8-7 .0 [facility] Lymphocytes [#/volume] in Blood by Automated count 0.36 10*3/uL 1.2-4 .0 L [facility] Monocytes [#/volume] in Blood by Automated count 0.51 10*3/uL 0-0.8 [facility] Eosinophils [#/volume] in Blood by Automated count 0.00 10*3/uL 0-0.5 [facility] Basophils [#/volume] in Blood by Automated count 0.00 10*3/uL 0-0.2 [facility] Nucleated erythrocytes/100 leukocytes [Ratio] in Blood by Automated count 0 /100{WBCs} 0-0 [facility] ID Date Data Source [id number] 12/04/2020 01:00:28 AM EDT [facility] Name Value Range Interpretation Code Description Data Ellen rce(s) Supporting Document(s) Albumin [Mass/volume] in Serum or Plasma by Bromocresol green (BCG) dye binding method 4.4 g/dL 3.5-5.2 [facility] al Bilirubin.total [Mass/volume] in Serum or Plasma 1.1 mg/dL <1.2 [facility] Calcium [Mass/volume] in Serum or Plasma 8.7 mg/dL 8.6-10.0 [facility] Chloride [Moles/volume] in Serum or Plasma 99 mmol/L 98-107 [facility] Creatinine [Mass/volume] in Serum or Plasma 0.76 mg/dL 0.70-1.20 [facility] Glucose [Mass/volume] in Serum or Plasma 103 mg/dL 70-140 [facility] Alkaline phosphatase [Enzymatic activity/volume] in Serum or Plasma 63 U/L 40-129 [facility] Potassium [Moles/volume] in Serum or Plasma 4.3 mmol/L 3.4-5.1 [facility] Hemolyzed Protein [Mass/volume] in Serum or Plasma 6.2 g/dL 6.4-8.3 L [facility] Sodium [Moles/volume] in Serum or Plasma 136 mmol/L 136-145 [facility] Aspartate aminotransferase [Enzymatic activity/volume] in Serum or Plasma 195 U/L <40 H [facility] Urea nitrogen [Mass/volume] in Serum or Plasma 13 mg/dL 6-20 [facility] Osmolality of Serum or Plasma by calculation 282 mosm/kg 275-300 [facility] Creatinine/Urea nitrogen [Mass Ratio] in Serum or Plasma 17 [facility] Bicarbonate [Moles/volume] in Serum 24 mmol/L 22-29 [facility] Alanine aminotransferase [Enzymatic activity/volume] in Seru m or Plasma 164 U/L <41 H [facility] Anion gap 3 in Serum or Plasma 13 mmol/L 8-15 [facility] Glomerular filtration rate/1.73 sq M pre dicted among non-blacks [Volume Rate/Area] in Serum or Plasma by Creatinine-based formula (MDRD) >6 0 [facility] Glomerular filtration rate/1.73 sq M pre dicted among blacks [Volume Rate/Area] in Serum or Plasma by Creatinine-based formula (MDRD) >60 [facility] ID Date Data Source [id number] 12/04/2020 01:00:28 AM EDT [facility] Name Value Range Interpretation Code Description Data Ellen rce(s) Supporting Document(s) Magnesium [Mass/volume] in Serum or Plasma 2.1 mg/dL 1.6-2.6 [facility] ID Date Data Source [id number] 12/04/2020 01:00:28 AM [facility] Name Value Range Interpretation Code Description Data Ellen rce(s) Supporting Document(s) Phosphate [Mass/volume] in Serum or Plasma 3.2 mg/dL 2.5-4.5 [facility] ID Date Data Source [id number] 12/03/2020 06:02:00 PM EDT [facility] Name Value Range Interpretation Code Description Data Ellen rce(s) Supporting Document(s) Albumin [Mass/volume] in Serum or Plasma by Bromocresol green (BCG) dye binding method 4.3 g/dL 3.5-5.2 [facility] Bilirubin.total [Mass/volume] in Serum or Plasma 1.0 mg/dL <1.2 [facility] Calcium [Mass/volume] in Serum or Plasma 9.2 mg/dL 8.6-10.0 [facility] Chloride [Moles/volume] in Serum or Plasma 100 mmol/L 98-107 [facility] Creatinine [Mass/volume] in Serum or Plasma 0.70 mg/dL 0.70-1.20 [facility] Glucose [Mass/volume] in Serum or Plasma 87 mg/dL 70-140 [facility] Alkaline phosphatase [Enzymatic activity/volume] in Serum or Plasma 63 U/L 40-129 [facility] Potassium [Moles/volume] in Serum or Plasma 4.2 mmol/L 3.4-5.1 [facility] Protein [Mass/volume] in Serum or Plasma 6.1 g/dL 6.4-8.3 L [facility] Sodium [Moles/volume] in Serum or Plasma 137 mmol/L 136-145 [facility] Aspartate aminotransferase [Enzymatic activity/volume] in Serum or Plasma 57 U/L <40 H [facility] Urea nitrogen [Mass/volume] in Serum or Plasma 10 mg/dL 6-20 [facility] Osmolality of Serum or Plasma by calculation 283 mosm/kg 275-300 [facility] Creatinine/Urea nitrogen [Mass Ratio] in Serum or Plasma 14 [facility] Bicarbonate [Moles/volume] in Serum 23 mmol/L 22-29 [facility] Alanine aminotransferase [Enzymatic activity/volume] in Seru m or Plasma 35 U/L <41 [facility] Anion gap 3 in Serum or Plasma 14 mmol/L 8-15 [facility] Glomerular filtration rate/1.73 sq M pre dicted among non-blacks [Volume Rate/Area] in Serum or Plasma by Creatinine-based formula (MDRD) >6 0 [facility] Glomerular filtration rate/1.73 sq M pre dicted among blacks [Volume Rate/Area] in Serum or Plasma by Creatinine-based formula (MDRD) >60 [facility] ID Date Data Source [id number] 12/03/2020 12:26:22 PM EDT [facility] Name Value Range Interpretation Code Description Data Ellen rce(s) Supporting Document(s) ED Provider Note [facility] SQRSUa8mVjETHiJa84/SKNwlWPGom5NzJDvqFEk2UDkaFJBcI1FcMTK7oL9wWRM7IMmMKqGtItSfOPM3 lbm [file] qYKx2kVHAr3T1R54Fr4IA+residential roofer/j47QBFYi0FPcvhZEqhdH3JLx81vhCBtOYpXSrwTzGrkVFcpXiXZHqB [file] ZUPsJJQtCALgWBKFCGhnEA2CFL5litS8NK0BjHFnYXQvIXJflMJdZUi0N56fgKYdTJogVP2MTHX+lCaudia+ Ae7EEIIqUTKmKKXpKeJwMIDKGfGgA2OuL3CBb8LoX5TnFE51yNqssjXrYHqhOK3FNZ3cALOiGVUDWG6D lLExpN2aruB6NYTjARCOYeXkL65mcRDcPIAqZAL3PG FoYb6UALWaI0ByijNrhWzlefYbLMBsSYULTO9ZUEnoqsTteEMgtMwlVJ78mTdpJE2BOt9EKgUhVB2jkb 7UjAHzCi8LNNL3YT7ESYQbNHSiEMYwTXW4BVWmWgSyHUawFIVlNZNlBBM2DMBiEYHzBJ4GOoWhEFJfST QpMivlVDZrUAUsbh9BFBFmSPU6IXg7PUOkMWAwQWCn QGauNXCkHFZkRQP4RKTzUKMmCD7YWzZoADNnRPSlVfMsLWHtVBIgho5MIGLhUSOfHnF6GXRpDXScRHVx VAvrNZHmLNU4MrYdSNAxOOTfEX1GHnBiFCEiZEP0LUdpLSNaUXOnrw4HXVYlVYSlQEg5TNZvFQOwYCJz MAxmTETdMUH9JVC2VYTnJVNeWK5RRdIlIDIeULJfPM gvIJTmYMDsys3BJAQhQVCgHbHsCIPeEPEwMQPaADsvPHNwWNT3RFX6RURcQBYdZF9ZQyKrIQJhBOUcCT IjAAVfAWBqem8EATQbRHQmAbN2ZTWlAUYfHHRiDLavTJEyEQJ2EHciGBZgFLBlRC6SAiBpUUFkYzP2Hy GxTMIsGGEszq1PZAQyDGLhYXP3VoKoLVYlKXIpPDtp PEQuZGY1EQTpTDJjTDWgTW2MYyRsLASmRxVhWMVpIDJgBJAexj0BXUZfKASrTvx8FaUhTHJaTKQfCTeg KLLgLJN0BEA5BJTbWHEgZO3ZUkPzXVSvTnh9TZCrNTXrQFMqul2ASYXxCXGwWZr2RCFiRYLgULLzVTkd SEGkZYCjIUs6QIYnOOKdOW6SKqTeZQRnMhLnCWUcEX UmFAZqsc9DFMByXHXbFiX5KBNgQYChPZWvMQmjRGRhPCCjFdLsNTPoPDBmAW9YBcRpNMMcOaD9NoOrSQ VgJPNbzx4MYOVpZNDiFbE6CuBlKSFcGSNbFWuePLFuQZVbQPi1UYMdAMEfQT5OQoVjHCVlUzL3UTLlRG GdKTDzkx7JEEIzVUKlKAm9BqJaWVMjXAUtRKubDKSl TZS9WKSnZSVmHKLlUT1SAvBkHYWzCmQeYeYqLDGhWSTdwy3LYDWwAPZ5FwC9GpWgGZXhYPIqKItsDCXv JHB0EQd4YMNmVZEjIS2TNoKeGONwXFrxBWsfRHIpTSCkxd4CYYBtZYH6NyIgRdHbTZWcAHTcNGatWXAt PQR9GEkiNHUyCXGsLF9PAgLvKHKwESy3NzyiYVExKC Uwfs5VXTXhMUJ1CRBoJLJlXYBoVVUfRXfjEWFoURW1TpheEKBgVOAyXI6QYsMhJMCaMGq7HgKvVVKzNO Brwl9UFFMbOLM7NMykEiIuKIYrGTFvRVayQVFbTMKeDBD7PDRtBLUjBH2HRpYtUYVkHCF6IBJdGMAnOR Jzfi5MJULfRNX3WvT3LUNaNEPzKWKtTJlnILDpIIFz UKAwEYTdDHLaDD9OIhKsIQJnVRLaMEAwDMHbNIAgil6LYEZuSCF1LaC8LHLhMYHpOYHfSJqhFZEjYEPn Siz7WBXfAXKyKT7XXoJlASBlGLL6WWIhOWDuABHfjw6XCSPdILS5HcTaVUBqRCJbKIQqFSyuMRXgBHAu GzWlKIByUNWpCJ0AOaGbZRBzFHRgJJXmHBAcSBAndu 4PQAAyYDS1FlA7DdLyAIMzADAwEViaMMCtKWDqBgL3SCVqSIBbIO0UOgCnWRBpIJO3GADrAXHlYPSdab 3DhWDdjQgltx6XGFjYDc1NhSzlIVAwYZelHe9rxXE7IDJcUZBBJl7FefVeDIGeWEYSHVmjFZWoFSF2WO W3HLlrDxGgGtjqYtHcAKpsRryoBRE6QWL0StPfWuB9 QcCnKOdsXLF0DtK3HYIxSbVkMyIrYLFjUGrbZOrjRVJ+LU8gZGd+Vl4Bz5DvkcE5weGeFAa3VBC1Nc0J YJHAY8COUy== ID Date Data Source [id number] 12/03/2020 12:10:15 PM EDT [facility] Name Value Range Interpretation Code Description Data Ellen rce(s) Supporting Document(s) ED Provider Note [facility] BTXCSn3kEnNLArXm79/CWZxqAKEcs4DeVJzzCSa2OBjiUTHwK2UjLYG5sK8pFPT3YBgPHuGjAyBmORY8 lbm [file] JuXBkcYC8HZZP+Claudia+Bj5HNFZdVSKsKZTvTcPdHTMK GrUpA5AdV0HHs3MmO1FxRM68xTlnpwLwKYbvWS5SMG8xWLWqPAPSTM2JjSNirC8yipB1WrKpMRGLVaOi Q82wdVVbUSWxKIYgXMBcQr6OKPRrH9VnywGudEpjajXcBXUgNYMSUM6FCQmrwkBmzBWpeWkvOJ24jPnc FN1TPw0WYdQrIA2rgx1DyMNvDr2FQSZ0RF6EJASjKF RcRPBvVER3BLVmDnXbQUhuHRQbPZDqNLS6TLFkLRSrLR2ZMjZwNIAzCgK3YfYxQJOlLVUrmu4ZHPLjVY D1QwJ7XuSiMGUkCYKpTEeqKLQfHKPvEIU8BJWyDDHzVQ7RErCaTPFxMUB8NePjRHSdNZLeaz2IOPUrPG VwUqc7WFOoYVJwRLRhAUfvJRBpUQL2VXa3GPLvNVKd ZV7WHsMkJAEiVMC3IRYmGBDqMQOxuh0PEJVxRVKzNNR5RFEtWRDtZUBuRHvcXGNmWDC4KuLkGKUxVPAn DR1RLfNyZRReGSKtVUqdXNWqCPStnj3BPHUaHKUfDjD8SXAzZDDaHVIzDRopRUBvKAP5VGE7NPVtOAAk WL1ZPbPyGABeFPQ3XHQiYUGuIRIjez5VLQRsFISlPK v0UmOqXHSnHNYtTNwvCFPaOSZpBGquAPXyEVZxQP1MXwKhZBPwKiT6FMEvIRUiHDIopj4JNQGvHZYoVm A9QSVqVYLoIHHfZSkfWEMlDCV8KyZ9IPFgKQCfHV8GQmBmGNAoXnK7GUPsIIDdJJMoty7TAXElCTZxMF EqHmAxCVBhPMWgLAthPOUlWZK5CSCuIRJlNMTpSY1T NsSlXWQoGtK8OFOyCPFlMXUsxp3ACCIoSRXcSvi6FmEcZRZePRVxAPrwWHKoMLN7Jmd7VJXpSKSgZD3U KmLyHLXlQrF3MAAnVDSfNVPckp2LAOIeGGFrSOM7CYQsEEQdQAWcMVchZKLaNPE0Zcj2YTOjYCSyLN6S TsJcHYUwEWYoCuIrTQVnDSIkfi4VQUGeEOB4GlE6DB BjCLMbJUAcKIyzIZCtBPC3IPXvPKNcNNWxPC3OGuPpHGWcAWU4HMGgNSChGJQebz8OKPTxZXR8GjoqOc XbWKJcMTFqMToiHOLoRYP6IIZhPJJbEHOjHA8NEuWpTHHcAHh4WHMrNBKzNTHhtj6ADVRyGVY3WOM0NJ NfNXFeWPRiHRvqHLHgHMK9KeWcPAZlIZPjXA0XTeOy KFTiUQGhVjLjFVFuAALgdm2PKTAhUPS6TKOyQrEkQKNqTILzQCptJCJxGIYoZeEsDDPhVDHgJG0AVgPb CMBhVsHeOHIdSEBnBCHxmv8PCQHfHBW8XbCyDILbJYPmKUAkHTrvVKCpRCJlXtSvOMNdOFCzGD4GEaBs JYYiUnH9WvYxMIVsFEOaez2JIQWjQDR5VqQoOHXoKR JhQTWhEWgtGZUaIQLrHVBuWIDiIFHoEX4KVwVrSUReIqDpJTStVBJkDXRykr6YLSZzWGY0DFVfKTVmCD AxBSSeCPswNWJuXDB5RlMmOWFkQZJaVO0JLjQcGEZqWjA9WKEyQISnOVDpvc9KYORcMZO5UBJrQZKjSH SdQKHdFTkcXLSeGHQ8HJH5KJPtDGVmDL6OJdGdYWKq Vro2FKTzFAQaIHXqnp1XJWGkPHW1XtP0SvDnROIgUOGpEWfhCJNsMVW0LTU7VBBeAVHsFR1WVtTqDZZq Ixi5ShvcLGYgGJGsen2JNROdMOG9QOS1NaRfTIRhAOFcAMhqTTNxVZJ1IkOkBLZuVHDzRN7YBeWrRIRc Dbf9DWhiRXDmUAFviw6AXISqWEW6PCU4WaWnUOZfWV LoAOi6yfVwuSMgVLj5XI3HV0ZdxpNpRyUATz1Ru857OCGaSFUrFv8TX5vlJl5sEUYhDFHRDi9FFTq7KW JfDdO5NXXbOJdiM0XlAJmjGOrmDtTzOLX7SXV1EVW+HZx1BpRiIWK3SMXwJ9M8IvD8F1W1L7L8IXCjRc FeXFj1Gh0eIBHFFg7+BJpheJIcdIdpKAKEDpB2ZGZ3RNalASRVQv1S ID Date Data Source [id number] 12/03/2020 01:05:43 AM EDT [facility] Name Value Range Interpretation Code Description Data Ellen rce(s) Supporting Document(s) Bicarbonate [Moles/volume] in Serum 24 mmol/L 22-29 [facility] Chloride [Moles/volume] in Serum or Plasma 101 mmol/L 98-107 [facility] Creatinine [Mass/volume] in Serum or Plasma 0.62 mg/dL 0.70-1.20 L [facility] Glucose [Mass/volume] in Serum or Plasma 120 mg/dL 70-140 [facility] Potassium [Moles/volume] in Serum or Plasma 4.2 mmol/L 3.4-5.1 [facility] Sodium [Moles/volume] in Serum or Plasma 134 mmol/L 136-145 L [facility] Urea nitrogen [Mass/volume] in Serum or Plasma 5 mg/dL 6-20 L [facility] Anion gap 3 in Serum or Plasma 8 mmol/L 8-15 [facility] Osmolality of Serum or Plasma by calculation 276 mosm/kg 275-300 [facility] Creatinine/Urea nitrogen [Mass Ratio] in Serum or Plasma 8 [facility] Calcium [Mass/volume] in Serum or Plasma 9.1 mg/dL 8.6-10.0 [facility] Glomerular filtration rate/1.73 sq M pre dicted among non-blacks [Volume Rate/Area] in Serum or Plasma by Creatinine-based formula (MDRD) >6 0 [facility] Glomerular filtration rate/1.73 sq M pre dicted among blacks [Volume Rate/Area] in Serum or Plasma by Creatinine-based formula (MDRD) >60 [facility] ID Date Data Source [id number] 12/03/2020 01:05:43 AM [facility] Name Value Range Interpretation Code Description Data Ellen rce(s) Supporting Document(s) Magnesium [Mass/volume] in Serum or Plasma 1.9 mg/dL 1.6-2.6 [facility] ID Date Data Source [id number] 12/03/2020 01:05:43 AM [facility] Name Value Range Interpretation Code Description Data Ellen rce(s) Supporting Document(s) Phosphate [Mass/volume] in Serum or Plasma 3.1 mg/dL 2.5-4.5 [facility] ID Date Data Source [id number] 12/03/2020 02:05:08 AM [facility] Value Range Interpretation Code Description Data Ellen rce(s) Supporting Document(s) Leukocytes [#/volume] in Blood by Automated count 2.1 10*3/uL 4-10 L [facility] Erythrocytes [#/volume] in Blood by Automated count 4.35 10*6/uL 4.6- 6.1 L [facility] Hemoglobin [Mass/volume] in Blood 12.8 g/dL 13.5-18 L [facility] Hematocrit [Volume Fraction] of Blood by Automated count 38.8 % 4 1-53 L [facility] Erythrocyte mean corpuscular volume [Entitic volume] by Auto mated count 89.1 fL 80-96 [facility] Erythrocyte mean corpuscular hemoglobin [Entitic mass] by Automated count 29.4 pg 27-33 [facility] Erythrocyte mean corpuscular hemoglobin concentration [Mass/volume] by Automated count 33.0 g/[facility].0-[facility] width [Ratio] by Automated count 13.2 % 11.5-14.5 [facility] Platelets [#/volume] in Blood by Automated count 199 10*3/uL 150-400 [facility] Differential cell count method - Blood [facility] Neutrophils/100 leukocytes in Blood by Automated count 90 % [facility] Lymphocytes/100 leukocytes in Blood by Automated count 7 % [facility] Monocytes/100 leukocytes in Blood by Automated count 3 % [facility] Neutrophils [#/volume] in Blood by Automated count 1.89 10*3/uL 1.8-7 .0 [facility] Lymphocytes [#/volume] in Blood by Automated count 0.15 10*3/uL 1.2-4 .0 L [facility] Monocytes [#/volume] in Blood by Automated count 0.06 10*3/uL 0-0.8 [facility] ID Date Data Source [id number] 12/02/2020 05:33:53 PM Health system RENAL OR AORTA COMPLETE [id number] RE SULTInterpreted by:Chen Preciado, DOCLINICAL HISTORY: Left [...] rce(s) Supporting Document(s) ID Date Data Source [id number] 12/02/2020 12:20:43 PM EDT [facility] Name Value Range Interpretation Code Description Data [facility] rce(s) Supporting Document(s) ED Provider Note [facility] FXBFTb9tBwKUKdUn24/HYVkrTYXgm7WlLHamIHl0FVsgVJNeP8LyLPO4qE1uTXR8VVvDMdTaErWnDUK7 lbm [file] qMNhYXhbHL9DVPM+Claudia+Kp7UOYYaQTLqCQKvLzVxWW PJQiFtF6YcW5SDf1DhV9SbIZ17iWjzlrRuEZejFJ1RBZ5jWVXiWFNVZZ3YyHJuvE5mvmF6HIItYMNHJv IaV46vgITnCQMgNMVjMWJdPp8UISXsO0QgbpVvkNvysgMdESFtFTGBXJ0ZBSasxzIwoLZsnWksXN05zH hwZN4JKh7YByTfED9rmo8RtPDlZw0TRLK4Hn6QBTHg VKMeJHYtXQB5EEQtFbYdQTtuKYVqDUWdHDR9NJTbFABoET4JCaFoXRMeKRV9BwFdJONjJYHigg0IYSLi UKW2PmF9XMUdTGGoFQYhBOtvDKKdZAMzIID2SOLmWXVhDF3SZxCbEDKxHZV4BbnvTKCjQVXgvg2BSQTv CUPbFhDsSSNcRPNtLEJyNSlnDEAzRDD8WPojZLVsTP KwFV0KBfIdTNKmHFiwOoXuNPScQRNbvz2UOEMsTKFmAWQ0KQMrAEKmFJRlNOzqMQTaWKFuLTjkCMWpYG MvBZ8FJjMyAMOgAFS1NMmhXDVxWRYdps7ZVROfLHYhPiH3QUSlWSOcPQDyGZjxVKEuLSB2Cgd6NXNyDJ MsPN1MDpDxPXHjHIC2ZZNsTFZeYHHfrx8TUSPkWLMg XYThLVOoMENbBZGdDRhfNAGqEHM7PGScWYHjTNOjRV5JMnXsFGAaVkB4XOViOGTqIKAbka3EOSSxGWPh SCg6KrGsBAEvCXQnEFrqLMTyASU4RPniTMLlVOOoPI6GWhByHIZbXiA0FNqqJIWnDDOuot6FZFXtOYZw DaC1OoGdXFGrYLNxTKwbCKLbXTB5YEb8WTRfJGNcIN 7RZmIaDKMuVkd0UJcsPWXsIZHtlb7VXILhSBAiOvU1OvOuOHXmBXLzIAabDPIcXYY0QQQ3EXGyIZZmSO 2ARjFlARXcAni5ZQgfLBSeXCNgwm9NMTRuVLRkDZk7YMAsHUArOBOnMDeyTPFsJKZ6JTy0TMHdZFYrYO 8NZhRuPYYmXrHwLtsjJCVwXQDrnp8QYHDdHJLfMGYk TFJxMMEsUBWeUGinTEViBNDgQXV8EHHrCTXpHI3YJrCjTCQsZCQ9MZnhLCCjRVBhta7RURQaSPI1FlY0 RkSpNOXiWGHyAHahYUZbBIQuJZldESMmKUAxRW0KHbVnOYJsSVN1JzYnQQCaDANfdf7VEBIaSSS9Mai9 IBMcCVScJJDaVYafLDAyZQOrZBCxMIWdBPHsEA5WDe IlWOBhTRZsIHYfZVYyJYYjnf7DOSBnJTJ9ISV5PIHaSGFmPVIoATbeOKCaHNF9NIIoEDCkNVVtIB8YKj TqRYXpSNWmLrRdMSJjMAWjlf7EVKEpEZC2AMFmKKCaMRQhVCHtFJvbHVFvRTS2LKN8USJbCSKfFC7CJs AhXNZhLKe3CIXoJFNaHTJjwx3UVLGoTAA2YeZhZiDe BPTaKUTpZLkrVIGpAWG2LiAwIQCsYXNwFY0BXtGgDJJlRBa7DmIiFWVgYMZioh1ZWDBhCYA9KFDnLbBe XVYxVJJuUVtzOLDcLVI1LbL6FQDnUWNuUD1COpMpZTMnTObwWNBjFUGeHCQfqs0WCEUrVZV9CXH0BMPp TDLaQKOwQFigWCVlSYD4WnHbLJCgKBWgAF1TNeKpFL IqQWj5YANzHAYpFPEvoi3NXUQhKXC4IRN8IcEzMORgOJXkWNrlBJJnMJG6AmQ0UAFdHEQgJO3IPgUcOZ MoTMg5IoOpPEOpWPMfyr9HkVTeaNvidb0OANtIGs2EoBntYSO9VFbeTw2qlVA1CnYgNRACHd5VfySgEE MpZXGGWVbdVTXjGFN2HtPgOmH9OKluCMU4KAQqSvR6 IOG1LfLvMpdrLyFhRlR1IHzyQvCsNAfiMMIkXJY7DjCtAgpvMlKgVJDkHKW4HLH+FG0uIEx+Wd5Wf4Fy gyH5bpQhPMy9RGS2Pl0BPWJVB0MSFe== ID Date Data Source [id number] 12/02/2020 12:01:37 PM EDT [facility] Name Value Range Interpretation Code Description Data Ellen rce(s) Supporting Document(s) Color of Urine [facility] Clarity of Urine [facility] Specific gravity of Urine by Refractometry automated 1.010 1.003 -1.030 [facility] pH of Urine by Automated test strip 5.0 5.0-8.0 [facility] Protein [Mass/volume] in Urine by Automated test strip Neg [facility] Glucose [Mass/volume] in Urine by Automated test strip Neg [facility] Ketones [Mass/volume] in Urine by Automated test strip 20 mg/dL Neg [facility] Bilirubin.total [Presence] in Urine by Automated test strip Negative [facility] Hemoglobin [Presence] in Urine by Automated test strip Neg [facility] Leukocyte esterase [Presence] in Urine by Automated test strip Negative [facility] Nitrite [Presence] in Urine by Automated test strip Negati ve [facility] Leukocytes [#/area] in Urine sediment by Automated count 0 /HPF 0 -5 [facility] Erythrocytes [#/area] in Urine sediment by Automated count 0 /HPF 0-3 [facility] Service comment [facility] ID Date Data Source [id number] 12/02/2020 11:49:36 AM EDT [facility] Name Value Range Interpretation Code Description Data Ellen rce(s) Supporting Document(s) Leukocytes [#/volume] in Blood by Automated count 5.4 10*3/uL 4-10 [facility] Erythrocytes [#/volume] in Blood by Automated count 4.26 10*6/uL 4.6- 6.1 L [facility] Hemoglobin [Mass/volume] in Blood 12.7 g/dL 13.5-18 L [facility] Hematocrit [Volume Fraction] of Blood by Automated count 38.1 % 4 1-53 L [facility] Erythrocyte mean corpuscular volume [Entitic volume] by Auto mated count 89.4 fL 80-96 [facility] Erythrocyte mean corpuscular hemoglobin [Entitic mass] by Automated count 29.8 pg 27-33 [facility] Erythrocyte mean corpuscular hemoglobin concentration [Mass/volume] by Automated count 33.4 g/dL 32.0-36.0 [facility] distribution width [Ratio] by Automated count 12.9 % 11.5-14.5 [facility] Platelets [#/volume] in Blood by Automated count 213 10*3/uL 150-400 [facility] Differential cell count method - Blood [facility] Neutrophils/100 leukocytes in Blood by Automated count 75 % [facility] Lymphocytes/100 leukocytes in Blood by Automated count 13 % [facility] Monocytes/100 leukocytes in Blood by Automated count 9 % [facility] Eosinophils/100 leukocytes in Blood by Automated count 3 % [facility] Basophils/100 leukocytes in Blood by Automated count 0 % [facility] Neutrophils [#/volume] in Blood by Automated count 4.06 10*3/uL 1.8-7 .0 [facility] Lymphocytes [#/volume] in Blood by Automated count 0.69 10*3/uL 1.2-4 .0 L [facility] Monocytes [#/volume] in Blood by Automated count 0.48 10*3/uL 0-0.8 [facility] Eosinophils [#/volume] in Blood by Automated count 0.17 10*3/uL 0-0.5 [facility] Basophils [#/volume] in Blood by Automated count 0.02 10*3/uL 0-0.2 [facility] Nucleated erythrocytes/100 leukocytes [Ratio] in Blood by Automated count 0 /100{WBCs} 0-0 [facility] ID Date Data Source [id number] 12/02/2020 12:11:19 PM EDT [facility] Name Value Range Interpretation Code Description Data Ellen rce(s) Supporting Document(s) Albumin [Mass/volume] in Serum or Plasma by Bromocresol green (BCG) dye binding method 3.9 g/dL 3.5-5.2 [facility] Bilirubin.total [Mass/volume] in Serum or Plasma 1.1 mg/dL <1.2 [facility] Calcium [Mass/volume] in Serum or Plasma 8.6 mg/dL 8.6-10.0 [facility] Chloride [Moles/volume] in Serum or Plasma 104 mmol/L 98-107 [facility] Creatinine [Mass/volume] in Serum or Plasma 0.70 mg/dL 0.70-1.20 [facility] Glucose [Mass/volume] in Serum or Plasma 112 mg/dL 70-140 [facility] Alkaline phosphatase [Enzymatic activity/volume] in Serum or Plasma 64 U/L 40-129 [facility] Potassium [Moles/volume] in Serum or Plasma 3.9 mmol/L 3.4-5.1 [facility] Protein [Mass/volume] in Serum or Plasma 6.0 g/dL 6.4-8.3 L [facility] Sodium [Moles/volume] in Serum or Plasma 137 mmol/L 136-145 [facility] Aspartate aminotransferase [Enzymatic activity/volume] in Serum or Plasma 11 U/L <40 [facility] Urea nitrogen [Mass/volume] in Serum or Plasma 4 mg/dL 6-20 L [facility] Osmolality of Serum or Plasma by calculation 282 mosm/kg 275-300 [facility] Creatinine/Urea nitrogen [Mass Ratio] in Serum or Plasma 6 [facility] Bicarbonate [Moles/volume] in Serum 25 mmol/L 22-29 [facility] Alanine aminotransferase [Enzymatic activity/volume] in Seru m or Plasma 7 U/L <41 [facility] Anion gap 3 in Serum or Plasma 8 mmol/L 8-15 [facility] Glomerular filtration rate/1.73 sq M pre dicted among non-blacks [Volume Rate/Area] in Serum or Plasma by Creatinine-based formula (MDRD) >6 0 [facility] Glomerular filtration rate/1.73 sq M pre dicted among blacks [Volume Rate/Area] in Serum or Plasma by Creatinine-based formula (MDRD) >60 [facility] ID Date Data Source [id number] 12/02/2020 02:02:07 PM EDT [facility] Name Value Range Interpretation Code Description Data Ellen rce(s) Supporting Document(s) Cancer Ag 19-9 [Units/volume] in Serum or Plasma 121 U/mL <35 H [facility] ConfirmedThis test uses [place] CA 19-9 el ectrochemiluminescent immunoassay. Results obtained with different test methods or kits cannot be used interchangeably. CA 19-9 is useful in monitoring pancreatic, hepatobiliary, gastric, hepatocelllular, and colorectal cancer. CA 19-9 value regardless of level, should not be interpreted as absolute evidence of the presence or absence of malignant disease. ID Date Data Source [id number] 12/02/2020 04:09:24 AM [facility] Name Value Range Interpretation Code Description Data Ellen rce(s) Supporting Document(s) Phosphate [Mass/volume] in Serum or Plasma 2.3 mg/dL 2.5-4.5 [facility] ID Date Data Source [id number] 12/02/2020 04:48:02 AM [facility] Name Value Range Interpretation Code Description Data Ellen rce(s) Supporting Document(s) Leukocytes [#/volume] in Blood by Automated count 5.2 10*3/uL 4-10 [facility] Erythrocytes [#/volume] in Blood by Automated count 4.27 10*6/uL 4.6- 6.1 [facility] Hemoglobin [Mass/volume] in Blood 12.5 g/dL 13.5-18 L [facility] Hematocrit [Volume Fraction] of Blood by Automated count 38.1 % 4 1-53 [facility] Erythrocyte mean corpuscular volume [Entitic volume] by Auto mated count 89.1 fL 80-96 [facility] Erythrocyte mean corpuscular hemoglobin [Entitic mass] by Automated count 29.3 pg 27-33 [facility] Erythrocyte mean corpuscular hemoglobin concentration [Mass/volume] by Automated count 32.9 g/dL 32.0-36.0 [facility] E[facility] distribution width [Ratio] by Automated count 12.8 % 11.5-14.5 [facility] Platelets [#/volume] in Blood by Automated count 201 10*3/uL 150-400 [facility] Differential cell count method - Blood [facility] Neutrophils/100 leukocytes in Blood by Automated count 67 % [facility] Lymphocytes/100 leukocytes in Blood by Automated count 20 % [facility] Monocytes/100 leukocytes in Blood by Automated count 8 % [facility] Eosinophils/100 leukocytes in Blood by Automated count 5 % [facility] Basophils/100 leukocytes in Blood by Automated count 0 % [facility] Neutrophils [#/volume] in Blood by Automated count 3.45 10*3/uL 1.8-7 .0 [facility] Lymphocytes [#/volume] in Blood by Automated count 1.06 10*3/uL 1.2-4 .0 [facility] Monocytes [#/volume] in Blood by Automated count 0.43 10*3/uL 0-0.8 [facility] Eosinophils [#/volume] in Blood by Automated count 0.25 10*3/uL 0-0.5 [facility] Basophils [#/volume] in Blood by Automated count 0.01 10*3/uL 0-0.2 [facility] Nucleated erythrocytes/100 leukocytes [Ratio] in Blood by Automated count 0 /100{WBCs} 0-0 [facility] ID Date Data Source [id number] 12/02/2020 04:55:04 AM EDT [facility] Name Value Range Interpretation Code Description Data Ellen rce(s) Supporting Document(s) Bicarbonate [Moles/volume] in Serum 21 mmol/L 22-29 [facility] Chloride [Moles/volume] in Serum or Plasma 100 mmol/L 98-107 [facility] Creatinine [Mass/volume] in Serum or Plasma 0.66 mg/dL 0.70-1.20 [facility] Glucose [Mass/volume] in Serum or Plasma 87 mg/dL 70-140 [facility] Potassium [Moles/volume] in Serum or Plasma 3.7 mmol/L 3.4-5.1 [facility] Hemolyzed Sodium [Moles/volume] in Serum or Plasma 134 mmol/L 136-145 [facility] Urea nitrogen [Mass/volume] in Serum or Plasma 6 mg/dL 6-20 [facility] Anion gap 3 in Serum or Plasma 12 mmol/L 8-15 [facility] Osmolality of Serum or Plasma by calculation 275 mosm/kg 275-300 [facility] Creatinine/Urea nitrogen [Mass Ratio] in Serum or Plasma 9 [facility] Calcium [Mass/volume] in Serum or Plasma 8.4 mg/dL 8.6-10.0 [facility] Glomerular filtration rate/1.73 sq M pre dicted among non-blacks [Volume Rate/Area] in Serum or Plasma by Creatinine-based formula (MDRD) >6 0 [facility] Glomerular filtration rate/1.73 sq M pre dicted among blacks [Volume Rate/Area] in Serum or Plasma by Creatinine-based formula (MDRD) >60 [facility] ID Date Data Source [id number] 12/01/2020 09:28:00 PM EDT [facility] [address] [place] [address] RESPIRATORY CARE REPORT ==== ---------NAME------- NUMBER SEX AGE ADMIT DISC. XRAY# F/C TYPEREID SHERRIE Gaviria [id number] M 35 11/23/20 11/24/20 [id number] BB1 E/R DATE OF : 1985 M/R# [id number] #: [id number] VT-20 LOCATION: EMERGENCY DEPT [facility] [id number] COMPLE TE:11/24/20 01:49 AJP [id number] PHYSICIAN: LEXUS VÁSQUEZ Name Value Range Interpretation Code Description Data Ellen rce(s) Supporting Document(s) ID Date Data Source [id number] 12/01/2020 04:59:09 PM EDT 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 [file] AgICAgICAgICAgICAgICAgICAgICAgICAgICAgICAgICAgICAgICAgICAgICAgDQogICAgICAgICAgIC AgICAgICAgICAgICAgICAgICAgICAgICAgICAgICAg ICAgICAgICAgICAgICAgICAgICAgICAgICAgICAgICAgICAgICAgICAgICAgICAgICAgICAgICAgDQog ICAgICAgICAgICAgICAgICAgICAgICAgICAgICAgICAgICAgICAgICAgICAgICAgICAgICAgICAgICAg ICAgICAgICAgICAgICAgICAgICAgICAgICAgICAgIC AgICAgICAgDQogICAgICAgICAgICAgICAgICAgICAgICAgICAgICAgICAgICAgICAgICAgICAgICAgIC AgICAgICAgICAgICAgICAgICAgICAgICAgICAgICAgICAgICAgICAgICAgICAgICAgDQogICAgICAgIC AgICAgICAgICAgICAgICAgICAgICAgICAgICAgICAg ICAgICAgICAgICAgICAgICAgICAgICAgICAgICAgICAgICAgICAgICAgICAgICAgICAgICAgICAgICAg DQogICAgICAgICAgICAgICAgICAgICAgICAgICAgICAgICAgICAgICAgICAgICAgICAgICAgICAgICAg ICAgICAgICAgICAgICAgICAgICAgICAgICAgICAgIC AgICAgICAgICAgDQogICAgICAgICAgICAgICAgICAgICAgICAgICAgICAgICAgICAgICAgICAgICAgIC AgICAgICAgICAgICAgICAgICAgICAgICAgICAgICAgICAgICAgICAgICAgICAgICAgICAgDQogICAgIC AgICAgICAgICAgICAgICAgICAgICAgICAgICAgICAg ICAgICAgICAgICAgICAgICAgICAgICAgICAgICAgICAgICAgICAgICAgICAgICAgICAgICAgICAgICAg ICAgDQogICAgICAgICAgICAgICAgICAgICAgICAgICAgICAgICAgICAgICAgICAgICAgICAgICAgICAg ICAgICAgICAgICAgICAgICAgICAgICAgICAgICAgIC AgICAgICAgICAgICAgDQogICAgICAgICAgICAgICAgICAgICAgICAgICAgICAgICAgICAgICAgICAgIC XzMLPuHFDpANIgJROwJBNbXIQhQSFdLCTiYTCeCNKhJQWuUMHyGDIgXFFbJWYpLOPnENNrWNYcGDx1Q9 fzSXGaNCBnJL3gGNu2Te5+BXrHYtVeFYT7czVdhP1S NC0ut9ZkMFuwPGPth8JeHNv1MG6YZTWnWWsuFT0EHYnfah9CAKBuTSQiwQDYp8atQmLrUYT9JBRcPnjo XJ0BUJHtR9ffvnXcXMOoYXQCDOlgLCRHOBxmDNZDURNaTVLoMxMqRbFcTSGoZYZsCQIKFQA6IZCoRpAs AYqlDB5Kv4OsoYP7IYh+Xa7DFN9ei3FxDIkvRlHhGQ 4jtq2PSCdKKzEcX1UcjoA1POX0JHEdWj6XSSBxTENbmOGpVBNbBLPNEjSaF1RzbO23EFZULe6+DQplbm SjQalDDmV3VWLlz7HbUCg2TV0PBNAuEDs4iVUlA22va8MymUChUgotEVctZEMzFBZuyyorWSPkSVPbMT JcYW7pYJUuTHH2RqRaRPPIGY4PVFUrBNBmwJLcRPQe PYQWKN1BGRcyYFE5MCRssjVqxAVrHVjzIY0MFBKkrzWuYmtlIFRWZRh+Di6ERX5xq5JfVIboQAYzJS2l hg2VPKmFAoHyL3S3sMImS5O1MRzsWn4DYVFbPAKfApSaEEEUVDhqBH0MYC5pxlK6HG3IvKQwOGCvDJJl nAIpJVe3U68xuCQcLWibXX4PMXX+Claudia+Af6BXJLlAW WyLHGkFaEaSPLMNhZnD4BkM9ELc9TiY9AaAI12kMtwwySlTRvgUD1YPT4eRXOtNMMPGF0MrYWyxI0xho UhLtOlYRGPYcCdV14aaRCcNNQqMQK9OHRuVu7NBUDcI4VxmkCadHeaoaOuEQPoBXDKTX8EAKyyddIuqZ IqnSarYH68cBasMY7DCf6BGcUgVA5tox9PpULtUg0G YPM6PR8OCKGtWLWbBNNdBBB9IERgYmVwQAdbZDDpBUDoNRT7WYWvHOXjSA9BRbRwBRQfYlw6UaklNSJs VUYqyb7KMNHxRAU2SVVpHWViTZGwPPKiFWmyZBHtAGDxYBU3AEFjQLJkRC3XFbNvCWZzIIL3JSAhHPFy MOGhek6VIQPrBTPcRai2YTPhIKRoZTUzJOaxIKNrCM V7VBW0BOOxDIQyPZ7CVgDyIKNoDYztUYTgBMLjCEGpmv4TRYAlRMCnRQL5YtJfEAOzDIBiUMquGELvAS P7HSppQCIrCVJjQG8FJzRsGKJmSZUyFkVcVOVcRUCwif1OLGNxKUWxUbQ1PkTxBMYmMDBgODjrLKVdJD G6KuP3LFRlUCRmNM2SOoNiYLSeVUA8VgZsBAVjSVDt mu8NOBTzEDSyTRb4PhXkWGQiURPzXAtiHUAtWYJ1LCr1RUNcDOTvWY5FSyNbEDXkIxV2XSDkBQEwJBUh ln4XAQKbWAScDzYiSIWzHUTiUYBuYWxoBABmPMGaNUwdZTOfHOFwRK6KVvNhUUZsAlTlKczwFHEnRLYv va4RTGOqPAYzPvF7QRNgWSSsEGMwCIokBQTeJEK4VJ H3YKHjDNYdZG7FMlAcEDTgWyH5HUQbMKHtRRDqai7WOURlJSGpIDe2KVJmNMKiRHFuKYcoAOOnASF4Jy K4WTTpJVZmSV4FNfZvJUTnIsU4EUKwMZUdYTTwhb5XLERnBHHkXfCqRTKrRFSmCKRwDWipVYFcVHY8IJ X4RXTqTLDjJE1GXzSpMKXeJvs2IIJxLAGvRJCrvz2H GHUnCQZcWAW8FGCoZIBeHJBmEMfgHKBtGRF5CqxqWYEwOOYmWL6QVaGxFYDgJxh6OsOpCWCnVGNpdk1N CCYiFHTpWOP1WXJkRLXvHLLuUDukRRUhXOP6EOL7IEOeBEWnHB6GFoJuTPHhYkv8GRMfXXKmAVFyys9R UFDeLVY7TAQ3DRQoFXNbITOuADqmBZQlQAZoYxY3IV FfGDWpEN2RLzAgSMSlSXD8WymiUYMmOOVwnh8NRCHxMKI5ARf7XlLtMJTcIVUiOAb6ctCjqALvOFf1FN 1KG0LnqhGlTMTFOt4Co261ETL7CFGnIe4CO6owNt2cCASyZLKTXv8OEMu9GBb0BpUhCNVmWZX4G1DgJ5 S8TBDfWrV5IQB5VFu4DKJ+IDwxODhmNmQwMWFlMzQ3 UYG2JXh0FkNzDERgLJH4XvtvNN6tYCWFEp9+VVmugXHatZmfFCJIGuAtJBCaIXthEWYZBx1V ID Date Data Source [id number] 12/01/2020 03:38:04 PM EDT [facility] Name Value Range Interpretation Code Description Data Ellen rce(s) Supporting Document(s) Consultation [facility] ZHNGSm7tTiEEJnKm47/KCAkvPLXeu4BmDUhcLJg1TEnpCVIeC0TaLZN1cW7yCQW3IJdJZcMpLyIfPWF3 lbm [file] AgICAgICAgICAgICAgICAgICAgICAgICAgICAgICAgICAgICAgICAgICAgICAgICAgICAgICAgICAgIC AgDQogICAgICAgICAgICAgICAgICAgICAgICAgICAg ICAgICAgICAgICAgICAgICAgICAgICAgICAgICAgICAgICAgICAgICAgICAgICAgICAgICAgICAgICAg ICAgICAgICAgICAgDQogICAgICAgICAgICAgICAgICAgICAgICAgICAgICAgICAgICAgICAgICAgICAg ICAgICAgICAgICAgICAgICAgICAgICAgICAgICAgIC AgICAgICAgICAgICAgICAgICAgICAgDQogICAgICAgICAgICAgICAgICAgICAgICAgICAgICAgICAgIC AgICAgICAgICAgICAgICAgICAgICAgICAgICAgICAgICAgICAgICAgICAgICAgICAgICAgICAgICAgIC AgICAgDQogICAgICAgICAgICAgICAgICAgICAgICAg ICAgICAgICAgICAgICAgICAgICAgICAgICAgICAgICAgICAgICAgICAgICAgICAgICAgICAgICAgICAg ICAgICAgICAgICAgICAgDQogICAgICAgICAgICAgICAgICAgICAgICAgICAgICAgICAgICAgICAgICAg ICAgICAgICAgICAgICAgICAgICAgICAgICAgICAgIC AgICAgICAgICAgICAgICAgICAgICAgICAgDQogICAgICAgICAgICAgICAgICAgICAgICAgICAgICAgIC AgICAgICAgICAgICAgICAgICAgICAgICAgICAgICAgICAgICAgICAgICAgICAgICAgICAgICAgICAgIC AgICAgICAgDQogICAgICAgICAgICAgICAgICAgICAg ICAgICAgICAgICAgICAgICAgICAgICAgICAgICAgICAgICAgICAgICAgICAgICAgICAgICAgICAgICAg ICAgICAgICAgICAgICAgICAgDQogICAgICAgICAgICAgICAgICAgICAgICAgICAgICAgICAgICAgICAg ICAgICAgICAgICAgICAgICAgICAgICAgICAgICAgIC AgICAgICAgICAgICAgICAgICAgICAgICAgICAgDQogICAgICAgICAgICAgICAgICAgICAgICAgICAgIC AgICAgICAgICAgICAgICAgICAgICAgICAgICAgICAgICAgICAgICAgICAgICAgICAgICAgICAgICAgIC AsNYDyTINbAABtHQd5C9trBRGaIIMwBK4gOBv7Ua6+ SXrPJpYvAOZ1ivIafP5DNI2ao7HcAIahWYYwh5GlPEf8XX7IJMVeGPxkXN0LSYrnpc7PPCQyFQLenSZL m1hxRzJcUYO2ZTUyDhhzHQ3TWOBiZ0jbxmGbNHWcPFGPKMlbCBKUUAxlYOPPPRXpTFNkYrRlYmWiXQMp FWSbGFQAWB5DMfIlJ3YcyL01MRIRPz6+DQplbmRvYm pRUfV8NBFlv8OxSCk4YN6XKDMmRxdwt6KnOkUvLVOJHOnrDV2LQIU2LTH7BHHpJd4ATCRvK112fdGyWL 4MUp7SFxHqFQ0khc0XEoQfMBEfGrwTJcu5TNgxFZ0FrTRyBIvTt30fbBw1jcUucSFMoDU7mRFvGnMLjT vmegsvEKRuFBIpVXFtOS0oSWUoNHRcGfX6SPYRZX3B MCHaDHHrvGDvXOPgJOJVZH8JPQdfNJN1FIKqtwKujSRzQQvcEW4UNMEpgrErYzMiGBHETWq+Zj8RIN5h r5SeHLvjVuGfAJ4lqp7JCNhQQtGvJ3K4lREjJ7T5GPhrZx6RTLXcGYNzBeVaGVJNOBixXY4VWE7xcoV7 GV6XhHLlFSOzTWZofKBlSDn0O89suUWpWKorYG6WVO A+Claudia+Sw2PFNRnQHIrGLRcDwFpMNQMZsNoN2GsI6ODf5YnO8SzNE71iBheolIxYLajXB3FDD8nTFOrEG KWOM9VsLBqzI2jbbXhQMHuCGRMReHmP11haBQdGUTxCHJ9LUHeMo8FFNTtA6OgzaFajGeoquRyREBhST LWNM5RJQyrboGvvSQarNsmUV60xHypYE1CDa3MTyEz CE6aev1XsWKuZj7KNLPmMB5YSPBoDECgQABrLCO7LCXkFwHnRKlwXRZmEFXoEGO1NTHfTMXaWT0WDsUe JNVcGoY4ZCBqCEVcVKAbth6AEAVnSFMySUWkEFGiUMWfJEMbJTtwZWRlBBPfSRY9GSAaTGRzTU7ZGgTx TQAaNKQ0OJJgCRUjHCKqsc6OREGfWWZgXwd5HhRlAC RkNOKaNVaqBMSyCUD2WBp9FODlTIYhCE8AOkQgNVXiEOVxKRboHDKpVCNrec9MMQOvSCSqOGZ4OLCxWM FsXETmMHcqNFGtSTE6GrNwZXIfYLQfZS3ICgOwXNGjAUN9OxVoFDQaEEEgdn3VUUFtOCYnHhqeGwFlWP MoRYEiDGtfEZLyKUD5KcQsUCYrTXUkIY5JFqPdOAQg AUQ0JFqjWQIpUGDlno3TSLHuMYBeITOoBmNpGZKyJYTrMOmrKENsJRY2JlL1RXVwVDJkOR3YEyZrRJQp JRm3WLhzVPPcAVQnly2AVHQyHXZuTYb8HvKwUJPsYPBbSTuiREXwNILaAXV4CIArOYZkPD2OPbFqESZh HjUbQshpTLQdPNRrua5QMEJeRLLuUYKhRNBlHDSbXM RrLAdaYDKyAXStDDW0HCZeZDHnSN1HRoUwTNEaZsDbVdkwYWArSHJbps6NIZErTICxSbQ0UTQuECJeLA HgMLrlOEYzLVBmPqG4CEJhNXAtRT2MFcSfGINoKfLfGDtsMJYoHMExfr1FSHCdBCAlDFVbCaNxVBEtWP BwXWlxWCJtAEL0UfUbMEYtWUHoUM4CRrLeUCRqObR6 ToTsLGKtTHBcvn1IFERnGJYcDPInMEGxSVHkMPRxJLmoYUVgCTE3GBUtSYCqOBPeOD3OLgWyEMUmBqEx UUGwRZPmNVRugb5NFQKiXBOrXzJpHYShTGCpKSPtRRtpVVEeSVI7BTNwQRJyGLIiZE0KCoBdHRQcGspq NoWwERUaXZJaqz8LHLAjIUByGYYwXvDqTNLyQASaUF buMLEpIRE4MTF0YZTbWXElDF4MEaBpVBrmJRGYTbr5XZdgY8v4NKTtFU2RF4Pvs1FtGuonSIMYQFifDM 5mjnTgHYQkZw4QH6iOVacqEsM2GBPoBIGcYTPhXJJsJMwmFchuOhLfKnGtOmN7Qi8yUTWcLsFuDLP4NI RgTKE8XHKlDORrT2EjRDXhWiYlADq5NlVyFO5RPv2EKxJ8IBE8cMPpUg2CEow7HTDNUaXtJU6KDYy= ID Date Data Source [id number] 12/01/2020 03:22:17 PM EDT [facility] Name Value Range Interpretation Code Description Data Ellen rce(s) Supporting Document(s) Leukocytes [#/volume] in Blood by Automated count 5.1 10*3/uL 4-10 [facility] Erythrocytes [#/volume] in Blood by Automated count 4.29 10*6/uL 4.6- 6.1 L [facility] Hemoglobin [Mass/volume] in Blood 12.8 g/dL 13.5-18 L [facility] Hematocrit [Volume Fraction] of Blood by Automated count 38.5 % 4 1-53 L [facility] Erythrocyte mean corpuscular volume [Entitic volume] by Auto mated count 89.8 fL 80-96 [facility] Erythrocyte mean corpuscular hemoglobin [Entitic mass] by Automated count 29.8 pg 27-33 [facility] Erythrocyte mean corpuscular hemoglobin concentration [Mass/volume] by Automated count 33.2 g/dL 32.0-36.0 [facility] al Erythrocyte distribution width [Ratio] by Automated count 13.0 % 11.5-14.5 [facility] Platelets [#/volume] in Blood by Automated count 212 10*3/uL 150-400 [facility] Differential cell count method - Blood [facility] Neutrophils/100 leukocytes in Blood by Automated count 69 % [facility] Lymphocytes/100 leukocytes in Blood by Automated count 19 % [facility] Monocytes/100 leukocytes in Blood by Automated count 7 % [facility] Eosinophils/100 leukocytes in Blood by Automated count 5 % [facility] Basophils/100 leukocytes in Blood by Automated count 0 % [facility] Neutrophils [#/volume] in Blood by Automated count 3.50 10*3/uL 1.8-7 .0 [facility] Lymphocytes [#/volume] in Blood by Automated count 0.97 10*3/uL 1.2-4 .0 L [facility] Monocytes [#/volume] in Blood by Automated count 0.36 10*3/uL 0-0.8 [facility] Eosinophils [#/volume] in Blood by Automated count 0.23 10*3/uL 0-0.5 [facility] Basophils [#/volume] in Blood by Automated count 0.01 10*3/uL 0-0.2 [facility] Nucleated erythrocytes/100 leukocytes [Ratio] in Blood by Automated count 0 /100{WBCs} 0-0 [facility] ID Date Data Source [id number] 12/01/2020 03:23:04 PM [facility] Value Range Interpretation Code Description Data Ellen rce(s) Supporting Document(s) Magnesium [Mass/volume] in Serum or Plasma 2.0 mg/dL 1.6-2.6 [facility] ID Date Data Source [id number] 12/01/2020 03:23:04 PM EDT [facility] Name Value Range Interpretation Code Description Data Ellen rce(s) Supporting Document(s) Phosphate [Mass/volume] in Serum or Plasma 1.8 mg/dL 2.5-4.5 L [facility] ID Date Data Source [id number] 12/01/2020 03:23:04 PM EDT [facility] Name Value Range Interpretation Code Description Data Ellen rce(s) Supporting Document(s) Albumin [Mass/volume] in Serum or Plasma by Bromocresol green (BCG) dye binding method 4.0 g/dL [facility].5[facility] Bil[facility].total [Mass/volume] in Serum or Plasma 1.5 mg/dL <1.2 H [facility] Calcium [Mass/volume] in Serum or Plasma 8.4 mg/dL 8.6-10.0 L [facility] Chloride [Moles/volume] in Serum or Plasma 104 mmol/L 98-107 [facility] Creatinine [Mass/volume] in Serum or Plasma 0.79 mg/dL 0.70-1.20 [facility] Glucose [Mass/volume] in Serum or Plasma 159 mg/dL 70-140 H [facility] Alkaline phosphatase [Enzymatic activity/volume] in Serum or Plasma 68 U/L 40-129 [facility] Potassium [Moles/volume] in Serum or Plasma 3.9 mmol/L 3.4-5.1 [facility] Protein [Mass/volume] in Serum or Plasma 6.0 g/dL 6.4-8.3 L [facility] Sodium [Moles/volume] in Serum or Plasma 137 mmol/L 136-145 [facility] Aspartate aminotransferase [Enzymatic activity/volume] in Serum or Plasma 11 U/L <40 [facility] Urea nitrogen [Mass/volume] in Serum or Plasma 11 mg/dL 6-20 [facility] Osmolality of Serum or Plasma by calculation 287 mosm/kg 275-300 [facility] Creatinine/Urea nitrogen [Mass Ratio] in Serum or Plasma 14 [facility] Bicarbonate [Moles/volume] in Serum 22 mmol/L 22-29 [facility] Alanine aminotransferase [Enzymatic activity/volume] in Seru m or Plasma 6 U/L <41 [facility] Anion gap 3 in Serum or Plasma 11 mmol/L 8-15 [facility] Glomerular filtration rate/1.73 sq M pre dicted among non-blacks [Volume Rate/Area] in Serum or Plasma by Creatinine-based formula (MDRD) >6 0 [facility] Glomerular filtration rate/1.73 sq M pre dicted among blacks [Volume Rate/Area] in Serum or Plasma by Creatinine-based formula (MDRD) >60 [facility] ID Date Data Source [id number] 12/01/2020 01:57:07 PM EDT [facility] Name Value Range Interpretation Code Description Data Ellen rce(s) Supporting Document(s) Consultation [facility] PTUHQp5kNxOOJxVo60/VBEmuSUUnf3TtJYblPGv9MJldQHIdV3HpYMV1bA4aPJP6DKaFOeJmDrFvIKQ3 lbm DvXrgJVkXiQYJtEdrFHjEgSOzoOawlaKDcVY9UeGV3UKNiW13bWOQqOENbR3FfRKZ3VdN+Dh5IXKGzwO IkQP7VKpfP0R9gX4t0Il3+Vfc/cRpt5eMzOxo19szNdpRIJGx1NanfSbnDN6Y5Vri6ReXjV0+yJT+6Y/ rwWBoScputQJfk/qkfarVassOY+u/rfAb0Lfof+Z/q 3tJK5PuF/voXVndzRdWt/aB5Os4VS3MU2GT58pTqVcY4oskxYeqxP+vt0RtIznIfy2CXjKLDp7FxKN8q DOlENFn2rE5veFwGaYoEBnOhg8qk6ssi5HZdwmePdS9H5xXou+Q6qpkz4pmbD+urJZGH0xdb9jhwgC6/ UwFTsxLZ0YuFZn+x5qjtFzKfXyNA6ZlMikCi+Uveog NBckVbGqXwXbcsf7UbpEG/KrzQFcp/yiQgthZ4jNt7ikb1K9NiaGlClIp6nxaEUa/OWpidY9qmBpRyZS ecGEqw0+BuZyilFJMmU4j9QynpEBhMBFpbBP+kacJsTuEdN2cm4xNpSQsAdrqpCOGluesE3CQrwpE9/2 DCkJrihujWi59a/2Rt2nwBbL4HL66xYerF9ywBNEcI 9QJa76rPXAUrcmFao2GuR1wwvnOhFCwr1+1OFccl6IX6qZ0eqhUbSie6r6n1u6dFuhzGCYcO8sxPoKvl CjouZt3NbFIHSiLudTzucxDKQYsV12pXEPbn2OYrO+9lD9aSPOfgbe7ZEG94vFPpUwqIkuWqXxQVvnQk INPkseidLvBQRJIAYnHq3VJTE9MZPZZQiCXzZG3rfU [file] AgICAgICAgICAgICAgICAgICAgICAgICAgICAgICAgICAgICAgICAgICAgICAgICAgICAgICAgICAgIC AgICAgICAgICAgICAgICAgICANCiAgICAgICAgICAg ICAgICAgICAgICAgICAgICAgICAgICAgICAgICAgICAgICAgICAgICAgICAgICAgICAgICAgICAgICAg ICAgICAgICAgICAgICAgICAgICAgICAgICAgICANCiAgICAgICAgICAgICAgICAgICAgICAgICAgICAg ICAgICAgICAgICAgICAgICAgICAgICAgICAgICAgIC AgICAgICAgICAgICAgICAgICAgICAgICAgICAgICAgICAgICAgICANCiAgICAgICAgICAgICAgICAgIC AgICAgICAgICAgICAgICAgICAgICAgICAgICAgICAgICAgICAgICAgICAgICAgICAgICAgICAgICAgIC AgICAgICAgICAgICAgICAgICAgICANCiAgICAgICAg ICAgICAgICAgICAgICAgICAgICAgICAgICAgICAgICAgICAgICAgICAgICAgICAgICAgICAgICAgICAg ICAgICAgICAgICAgICAgICAgICAgICAgICAgICAgICANCiAgICAgICAgICAgICAgICAgICAgICAgICAg ICAgICAgICAgICAgICAgICAgICAgICAgICAgICAgIC AgICAgICAgICAgICAgICAgICAgICAgICAgICAgICAgICAgICAgICAgICANCiAgICAgICAgICAgICAgIC AgICAgICAgICAgICAgICAgICAgICAgICAgICAgICAgICAgICAgICAgICAgICAgICAgICAgICAgICAgIC AgICAgICAgICAgICAgICAgICAgICAgICANCiAgICAg ICAgICAgICAgICAgICAgICAgICAgICAgICAgICAgICAgICAgICAgICAgICAgICAgICAgICAgICAgICAg ICAgICAgICAgICAgICAgICAgICAgICAgICAgICAgICAgICANCiAgICAgICAgICAgICAgICAgICAgICAg ICAgICAgICAgICAgICAgICAgICAgICAgICAgICAgIC AgICAgICAgICAgICAgICAgICAgICAgICAgICAgICAgICAgICAgICAgICAgICANCiAgICAgICAgICAgIC AgICAgICAgICAgICAgICAgICAgICAgICAgICAgICAgICAgICAgICAgICAgICAgICAgICAgICAgICAgIC AgICAgICAgICAgICAgICAgICAgICAgICAgICANCjw/ pMAzJ3idvHJtrsD3N7unUd0JRh4VCL1fr4JaIDHgWCgguaMaKvuFLdRvBTYxDqfFMas0LSkeBN7IpWWv A8UmE6OfRCblLZ4CNPGnZBZhrGEyJUHtOSVxWcC7RXVfFQsaGN0QlDScLWuzRBAtGOVdCmHpMSQmTA7T CZHpO083lsZnZe5XMy4IWvNuCS8piv7DHmZtITRtZb iYPry2WJhmKU3FkHAjjYDqTzUeRMIGXqQlI2rsb5KmMsVdUXPGFQgkFZ8Ve9ZkrMVuLQn+Ya5KKK8pq1 WaFOieAbTyQG0zgd7YASjVOnFjM3BswMqwMOMdrjK3eFUhHKS3BYucaT9oZDTuDKI6dKYvPHsOL3pmIM EzCDKySR0wVQDvBUWuErQ6YXSKRB4NXZScPWTbiKVl GMYxYWZTVI4YHEmoRIB8QWPtujKgkXUrBRxrES3JPZZcyfRiJyWjMXBBLRv+Tq3PYH7vs8FuEWdtYMQf ZK6bod6QFVxJEnLjF1P3uVNxX6I5TCnyGk8SFUBiAXTqSmJlCPDAQZhfDA4WNC4ltgW1XY0GeWLkNWGk PXLjeWLeQCt7W75coZWzGEhtVK4OKWP+Claudia+Pg0KIC WjRKGxDLBjVeJsGHHOEmEbL1RvH5MTg6JjZ8KhNF85ePejzoPxJRvgPB0SGV6pJTKfQNDUHI7OfHPuqH 6wewIfZbEyMXVUEyCtF90psYMkZFMtYCRuWWQhTt4ZNDCsC4SpoeJvjObgbaWbDXGjTALBSC4NOPpagh NruFLxxTelWW33rZtuSO2ZRe4TUsObQF6gmn7IkCKq Ot4WNCPkEY3HSDAsVGWbRADgGQE6XOZtQuIbDPquYINmUGDoKOC7CYLhERVsZO4CSlUeOJVgYGZxSIjp FFPmZGQttj1ENAHfHQAzRjk2DgNhSTFqRKNjTCtnZUVsMBDiVZL0QKAhORWtUV1KYkSkBQCfZUZ0DYAj JZSpULNboe5RKZHuDAHaIcclQyVeCXCoNAMmYTylUB VoMZV4LCS1MLXpZOAxZV9CNcIfKLGgCZH3LZAqXLShIBLicp1DDRAsHXObBhD3IYZwJSLaOFRlQLbbYR QdAID8WkN2XLMdVTLqSX2CGhNqYKOeGAD9YInsDMCuICXlzi3KSNSiQQTjDqakTuTyJPKlNBUuFRlqTJ WdSPJ6YTY5RTEgRPQfAK3SCzVzKJNtDYpqSPWlHTDj HNBaba3NDRXmIHHuNWH0QFOoMKAxUJImWPnlVWGuBBF0XBH5WGZnQWByEN9FVoNzXMQnXTp3ADLyVDPw KOAehh5EJJZyXKSqMDAyGFGrZUBlTFMzTRgdVPXhMSIfPGLyEQFfCPAbAV7SRbNwLOOtZTE2UUYgYYPr FBSwwq1IRQIkBAKqWIHeHsCrKWUwXNGjZXilOUEqTZ KyWQasGYEmVYXoTM2RHcGwRWYcFPW3IXWwWANaVEGakv7REUPtLERcLrN0YIWxOBArTXHdOJn0khHchM ChWDx0LJ1GH4YaerQoHpPMXs7Lh189CGN9DWSgNy1GC5wcIl2hQFUjVDTKAo3WLAi4PEE9WfIfYzWuDV R2JJGrMIPxL2WkDNP5OCF2EIJ7OvV+IDwxZDhiYWNi ETC8LiAtFBK4H9XgEnF6FSL6JuF4XQn0TQ6bGIZMMe3+CBiyyBSvkQaaITIUPlDmPkS1KEmpEOYPLp4K ID Date Data Source [id number] 11/30/2020 10:18:16 PM EDT [facility] MR BRAIN WITH AND WITHOUT CONTRAST [id number] FINAL RESULTInterpreted by:Mariah Houser MDINDICATION: Brain metastases [...] rce(s) Supporting Document(s) ID Date Data Source [id number] 11/30/2020 04:23:58 PM [facility] Name Value Range Interpretation Code Description Data Ellen rce(s) Supporting Document(s) [facility] EGOCLe1pNcWYLjWr74/BMZwrYIVny5FaXCwrWXa2VKnwTEBxJ7EzNAT2eH0lIYI7VShEYrZwOwStZWU0 [facility] [file] ICAgICAgICAgICAgICAgICAgICAgICAgICAgICAgICAgICAgICAgICAgICAgICAgICAgICAgICAgICAg ICAgICAgICAgICAgICAgICAgICAgICAgICAgICAgICAgICAgICAgDQogICAgICAgICAgICAgICAgICAg ICAgICAgICAgICAgICAgICAgICAgICAgICAgICAgIC AgICAgICAgICAgICAgICAgICAgICAgICAgICAgICAgICAgICAgICAgICAgICAgICAgDQogICAgICAgIC AgICAgICAgICAgICAgICAgICAgICAgICAgICAgICAgICAgICAgICAgICAgICAgICAgICAgICAgICAgIC AgICAgICAgICAgICAgICAgICAgICAgICAgICAgICAg DQogICAgICAgICAgICAgICAgICAgICAgICAgICAgICAgICAgICAgICAgICAgICAgICAgICAgICAgICAg ICAgICAgICAgICAgICAgICAgICAgICAgICAgICAgICAgICAgICAgICAgDQogICAgICAgICAgICAgICAg ICAgICAgICAgICAgICAgICAgICAgICAgICAgICAgIC AgICAgICAgICAgICAgICAgICAgICAgICAgICAgICAgICAgICAgICAgICAgICAgICAgICAgDQogICAgIC AgICAgICAgICAgICAgICAgICAgICAgICAgICAgICAgICAgICAgICAgICAgICAgICAgICAgICAgICAgIC AgICAgICAgICAgICAgICAgICAgICAgICAgICAgICAg ICAgDQogICAgICAgICAgICAgICAgICAgICAgICAgICAgICAgICAgICAgICAgICAgICAgICAgICAgICAg ICAgICAgICAgICAgICAgICAgICAgICAgICAgICAgICAgICAgICAgICAgICAgDQogICAgICAgICAgICAg ICAgICAgICAgICAgICAgICAgICAgICAgICAgICAgIC AgICAgICAgICAgICAgICAgICAgICAgICAgICAgICAgICAgICAgICAgICAgICAgICAgICAgICAgDQogIC AgICAgICAgICAgICAgICAgICAgICAgICAgICAgICAgICAgICAgICAgICAgICAgICAgICAgICAgICAgIC AgICAgICAgICAgICAgICAgICAgICAgICAgICAgICAg ICAgICAgDQogICAgICAgICAgICAgICAgICAgICAgICAgICAgICAgICAgICAgICAgICAgICAgICAgICAg YPPlJVNjGFQoYWEbCNPbEHZeDWHhMBFrQUVdTCWyPEYbGBWkJLTmNRFyCTNyDLDeGWf7J1ntINDiVWTp ZX6eEVi3Sc7+PBgOMnBmEOD4icRevA2ZLL6uf8MrVY exJXMni7MwTXs0EP2VKHMbNCbgAX8UKHroeh9WYBRoQVUheHIGw3owAnDeZNT3JLHoIphuBD8IEMMgK3 wufzZkFGLiZUQZYShyHWIZSHlcWTTIDDFnTSEuNwRqHdUyKVExNEKfZLXQCFA1IDTdPtYlCIXaDIUnTb FmTEMRUI8PNdPrQ2RucM74YYrRNy7+DQplbmRvYmoN UpWjTKEdx8XiRHy8HH2IEIPzQfddq5TrGMBnGQRKMNzfKG7WGAY6UZLaWJZsXe0BMTAeZ568uyDbMG5K Xc0PIoScKH7wsx8URJEqQKOsBxoWZnu4YJyxIT7KvVDiPWoNs33hsFl4fzJprKAMkwsrhl7hUGpyF6hq jAq6mS6PmTDfLBYXDNPfqOTrRW56GnDcPfHxQLz1MI ErUF9gMJqgQO8AZMM1MHbkJRQzQVExZ3cGPlRaLYCeBwCvpJmvII0CXySjN0DpezEbjAA5YQQfCVWRAz 4+ZYpggnHgDzjCMfTmJIBjt4KnUMo0WH5GGBXbEOhhLO6MDJMrdV0aWNrqDC1APoSjBUQqBKRZPdGcG8 8glOUdCYn0Z2AiMsWwDMDwVreuEKPdMQwyFfMxDGXa WyBdDQogID4+ID4+LGcvBC4AOVnaemHfAZDqLp3EWIJaVKScUD9yGHWqBWEqG1Q6uYdqHYGYLwQqY0fn slraGB9kZIEyO632eLwvafQwVXUeDWVkYk2JMSWpJVN7WJNguHZrIKTuLMANYBthWQ3UoIKwQRW4nK8z AVorTKZkCSLjD3gFDzXiuEogNZ71nDhajcWwuDHkES o+Xi0PJA6du7SmAFv4zhPqWXrqITT5PCrlTTZrHKFdPEWzNBU8LGL4EABAGeKyCMVgTXQyMXqlTAWgXZ Wdsa9LIQMaGBU6LzR5MpNsKPDzWGNiPOldFWNqGNA9Jew6TUEdLOLkSH7TRnCkWRKnYVTpMTqoMWRzIB Lojc1PLMDlDWYbCUJ3DPStLSKnXXKoGFqsOLCjOYB2 GBoxCOWbWDGgGY2BEdQeDGMjUAycRMeoIGFnNBInyx6MMLWkTFYoZdNlSrCbGJVzDUFaYLmrFSWqMHGc JFl0AHAxSNOdCZ7TMyQpWHFwONRvHRZbMIViVRJiaq7HNLQoMXZoVlZ8MbIzVPUlSZZvFFzzYEOuQRTz HCP3OQIiIVUqHL7JPsSjFBQyMDx8DFLtWSWiPETzkb 4FCCBiKBKlMxo7MiRyGOEoNHKtVFlfKTGgJEVwViTtNYTyUDIeIU0TOoAuCFGpViQ3JBYvXYEpAAUtam 6YAUNkXLTqXBG8PyDxWLEhWJSnSVykJDLlAQT4FvC0JNSdXUQyWJ3MKuRcTTRyVvLgTKZdOWTzTKVgzw 7UIJEuRCMzIzUgCRWfEVBgTBBbYEdeOOTbIWZ3Uvmx EKHdEGQuIW3GGvCxWKRbPiR0QFpiZVMyGXGvqi2ECFZbVGKbZju0NNNzUXPoRZWlAEkeXSMbITB8WCC8 OSPjTXTaKQ7AMiQhOCXbAowlVihdYURlZUIjex2QMKKaFXZaLFI0BTYlTLItBEDrPAtpXKVtEEL2Wowa JYEmMCNmHU7UZgFhVHTlOvg1GenvWNIbKUMhlc5ENH HrWXQiPLRaNKInQNJmTLTrCFvyNMPvYXJ9LeE5ZQPsRDPoBX4HIgFgCQFeRwy5HVklLXAgHVJggw7TBR BuVKX5FSTkSlDiDPAnZDNhJBoeHPZhDZLkIiXzEJGlUMUjPU0HJzIrXSDfMAK2EiXrCFBzIRHbum0FUM BzMSQ6PaA9MUEeJDHgGGApQXjlLHQoVYSaKuD3JKMg VGJkYJ7GNwVpLVLzWSZfKNluJYOjETRoat2ITFSiRJZ0BlT5WxJuFQRiPXDlAPeqFFXvUXNzVDA2CDJh ZEWuNP0LCkZhJWLrORT1FWdjOPBhBHRkiu7WGFAsPFF6QHE2EZTfJBMrWYYjYYjjBMIdAWY6GKXbUOGi LPKvHJ0HJgDqHZGeZDS1SxCjOAEnXOTtbt8UxLKbyQ otqp5SCRbULd0TlHscSVY6IIfnBh4qiVL5CjWiZVUZDc9KzkNfSAMyFWJTVPhnPCIhTEX3NnGjThp6AY WfXEG9AWNwMpDyRAJ1J2IhTmJyS3WoLxL5WtYoWLJ5RYjnKQMrDQFsUsW6MIK2BfgmRCEaM1QiO4J+IF 0gDQo+Dp2Aw6AxgyE1nqZuHQt9MXbnQl0KZXJIJ3BHUw== ID Date Data Source [id number] 11/30/2020 04:09:58 PM EDT [facility] Name Value Range Interpretation Code Description Data Ellen rce(s) Supporting Document(s) Consultation [facility] YDFTLr3fUgAWDfFb89/ALXplIGDfk7ZmQGvhNZw3MLqfNIVoA8SaFGC5sH1pDIJ9FHeOKvJyIoAiUHL1 lbm [file] X7KTVpZnU0BSO8DyRzEXZpHUO+BK4aLKz+Pv6Ze1AezrA0nqJeRSt9RgB4Sb2QKWGAX1RUCp== ID Date Data Source [id number] 11/30/2020 02:47:27 PM EDT [facility] IR IMAGE GUIDED NEEDLE DRAIN PROCEDUREFI [...] rce(s) Supporting Document(s) ID Date Data Source [id number] 11/30/2020 07:38:39 PM [facility] Value Range Interpretation Code Description Data Ellen rce(s) Supporting Document(s) Carcinoembryonic Ag [Mass/volume] in Serum or Plasma <3.4 [facility] Levels of CEA should not be interpreted as absoulute evidence of the presence or absence of disease. It should not be used as a screening test for Cancer. CEA values obtained using different methodologies cannot be used interchangeably. This method is manufactured by [employer] and is an electrochemiluminesence immunoassay. ID Date Data Source [id number] 11/30/2020 07:40:30 PM [facility] Value Range Interpretation Code Description Data Ellen rce(s) Supporting Document(s) Rxysr-6-Pjqefhycvez [Mass/volume] in Serum or Plasma <9 [facility] ID Date Data Source [id number] 11/30/2020 07:59:29 PM [facility] Value Range Interpretation Code Description Data Ellen rce(s) Supporting Document(s) Cancer Ag 19-9 [Units/volume] in Serum or Plasma 93 U/mL <35 H [facility] ConfirmedThis test uses [employer] CA 19-9 el ectrochemiluminescent immunoassay. Results obtained with different test methods or kits cannot be used interchangeably. CA 19-9 is useful in monitoring pancreatic, hepatobiliary, gastric, hepatocelllular, and colorectal cancer. CA 19-9 value regardless of level, should not be interpreted as absolute evidence of the presence or absence of malignant disease. ID Date Data Source [id number] 11/30/2020 12:34:45 PM EDT [facility] Name Value Range Interpretation Code Description Data Ellen rce(s) Supporting Document(s) Consultation [facility] EKETFt8uVrCUXxJh72/GMQrfWKQfz6ZqTLxaACs0UZdbDDEnX7AuJJQ8hX7fDGH2ZLzBVvXqYsDqKXM5 lbm [file] AgICAgICAgICAgICAgICAgICAgICAgICAgICAgICAg QPAdSKOrYNDwSKWyPRQoGCRhILLfQWEsRXUmRC0POLKpOAWjFGAxPUPqVUCoYOBqHHAsWVFqKCEtKQRu ICAgICAgICAgICAgICAgICAgICAgICAgICAgICAgICAgICAgICAgICAgICAgICAgICAgICAgICAgICAg KLXjTZSwLMCsQS8ISCZnDRIyWHQbGXHeDXDqTIXvKJ AgICAgICAgICAgICAgICAgICAgICAgICAgICAgICAgICAgICAgICAgICAgICAgICAgICAgICAgICAgIC HcVFHzPJChWMPzGRAiSDKfYQJzTO6TEPHvIYQhYJFnPMQbYVLmUFMnKFCxXAWeMHMrFCSaOEMoJUUoWY AgICAgICAgICAgICAgICAgICAgICAgICAgICAgICAg RCJgNEFzHHAwLXLfYHGuAFYyLVQeESPoXLDgXEHgMZ2FNCXgITEtBBAhHSVxWXLfPQAxCHQzQATsETXm ICAgICAgICAgICAgICAgICAgICAgICAgICAgICAgICAgICAgICAgICAgICAgICAgICAgICAgICAgICAg PIKuENMcAKKiFSWuMX6OXJZaWYWcTOFxNOKiPBJxQH AgICAgICAgICAgICAgICAgICAgICAgICAgICAgICAgICAgICAgICAgICAgICAgICAgICAgICAgICAgIC GyXDGwKZQzAMDhPTXtVKIbYDCwRXTvCG9TEUTvXZPdORJhVWCeTSEtAOPcWYPiVRXhZBWaVAQcVWKuDE AgICAgICAgICAgICAgICAgICAgICAgICAgICAgICAg GVIzZZLyZKJcISFbCJIzXVIfWTYeWIWfQUEsOASoRTJeEL5PWEJuHBDrPPZoGSOtGOQyXSKeDLTbUSIb ICAgICAgICAgICAgICAgICAgICAgICAgICAgICAgICAgICAgICAgICAgICAgICAgICAgICAgICAgICAg LEAaSEYnXKVvIPRoOKYpWZ0SJEDnXMOpRIMlZURmLN AgICAgICAgICAgICAgICAgICAgICAgICAgICAgICAgICAgICAgICAgICAgICAgICAgICAgICAgICAgIC WqHCPrUUGuPWVtKTZhOIDyGRMdNIXjJNXuIV2TAIFvCMHyBNJuILGzILAvFLSuCOFfQHPzGKYvCGZxDT AgICAgICAgICAgICAgICAgICAgICAgICAgICAgICAg ASPaASMtPAGdSGTjGEMaIOGgQSPcCTHdYZOlJIXyNVXcLWXtNX8NBN46jHBqk2Y9UHAuOS3pkzj/Pg0K GObpnjUcuHUqHA6FXrYjNM0nqe3UAcPxOA8rjh0BPFoDPaWeR8O9bJJpTQSxCNODPmYaG96nFIalAa60 TXtqKDZaFgOmVXa9Kj8LFaYsT1cnDTCwJpO2TRDeYm Q9RUWcYwC5SCNnHtSyKHQjHVMiLCObJAAJFRV1ITEtQeVaVQckXO5Ty0TwrWY3ZUb+Qg9QYK0xp9AqHS p9XQPcPU6cvt4KDGqEWbZpZ1MicvP2IJMeYHLoXp1EJUXhONMxiQA9PzMiQYHWEkCfB6LrjZ05CPYSTk 4+EEuwnqAqEbaDJtQgBAFxa7LsQDo9SD4KMOYdBKd8 kWMtP22bb5CfjVSkGrmjKm4zVOazVLGoI1s8mhxfm9UbbVsgPFLgKWMxYTYpGX3aOLUiKWZ4GrDzVHQW TD0QTJAdTRZcjFScOVWsXZMFZP9IGWroIHK0UARrznYoyMCwFYmjSM7IIVGpnpZoMXLaMAWNQKm+Pg0K DY5tq8MqMKk5ZuAvJH3olu4KPLuHDfGoH5A5eZRbW6 X4TRscDi1PTARlSKQnFqdoUBKFHKevWA3TFX9uxbE9AG9HbIDvTOAbRNZtoIIyUIt6P68lcSXfMTtsQB 0KICA+Claudia+Ub2PBYRzVGDuZLTwPgJsWIKYDkSsO8YfE3MSe3LvT4RcNP95dJtiodWzFHpmSK2TLS3bOD AoEFIIIO3SrVVlcB9nnqP3BFGkTCLSIxMaB92bfCMe HBTzWUYhBADuRb3LCNZnD4YcdsWxdMywusJaWHAqGOXXJV3IBGziqzBkkJMqtVxbWL35nCzfQN8JAq5O WlZpUM0fwd7FdWAmXg7XSNS7SW8LKQOgXSAuPXOuEUI6FWKtXtAkFLpnLUMjTQOaYGE3NWSeAPUxTT6P WgNaQMBoSOE9MHjoPXHsQARajd7IKGOpLTY4OkL5MM ZrPALsLVVhTMooHDSiVWUlGYA7XBHhDJUkNQ4SZcQpVOFtRIR1LtqtWAUzHYCual3WICJfZDFrUln4Dt EoSYAsGJJpMDvcMSHfVBN5KgQ3YQPyDNNyIW0LOiBsBYZnECb5EOhdPBKiCMRble8JBAAtTIAsVLWdLZ NuXKCrJJKzEQzlJFKmCIBdIuY0QEDeVOSiPD2UXeJj URCwKZA4ZABoXLXjZLSwwj8QJAUdNPJeJIb9RUYdRFPjYJJrHZazAAVoTXKuLTW8NBQtXKRcGK5XSiIo SBYkKwPmLlCqXWPrVMWcnu4NDZHfGMCjLHUtBWQuDMPbVODwKSkoDQQzKUP4QbPrDWQdXSAuOF9ERlPz CVHlHzQiSUOvKEHwVYSiid9BIKJaFTTtJDM4SYLxNE HcPPUnPMkwPIKdDJP6BlhoOKWzIEFzVD7SIeHnQCJtLfJ5AmGhTJHxWDXuxg0SZUIwXGPjRppgVeDmKF FdTYQjGGbfPYUdWJA4ILOcNCXeFNPlYM1HDrZkWKSxQbo7DmqdSEByKJTzoz8PUAOzSZIdMIS5ECEyFQ GhMVJyHNjhWVHhBNP0OiO2KSVdAGDvXP6BXgTjMKZz RkelDtigIKPuFSOcur4CHKYgGAZeWAZxVwBfVJEhQHJkTJnoLLUmZMH9GqN3NHLmCFIkBD6EVnPcKEJf YOGwFWYpUNZxYLCilj7HWKHlYWC4CSWwEvHbXMTzVCPdVZplNIHqFMMjNjGqOKTsCQQeVZ0MRoAdKPFs GRP6UaSoBEZmPOXvzw9QZWBoKRH1HzYjEpGjGTUcWH BuLMbvZXUnGQQrCSWmUZJvCZLdPN7WKhAkNSWoZNBmHncgYCUkGSBtxo8CWZRcHFI7QtDwNrSiDSOxPZ ZxNQdwFHUjSTN3ZpB2HILaTYKuBU1PRfFmSKTcCBU9JDOvIIPwDNRzan3GKWDgVTA7YNVpVDNgWQYwOQ NtOBmcKMMmFDN2SHSzQHYtIFMhJZ4RJiUuAKKeLTC4 RzEiCMRjDSAoto6RKZZzSYO6XsR5MhHxKKAtXURzBPepBEBbXCI9VosoEWHlOQJwTP6SAuUkWBalJGOA Aay1AChyK8o4ZZX5CY9MI1Mhv1IbLLAsYRATOKjoXD2hubIcNJXjAo5TS5aIXwcnPuMfAQRaVxCyITGr VIW3VflfQcq7OmH4UATyQwU3VZ6bJWIcPMGoWKItFf UzZuA3Sdt1S5TxXIR0RNr0WiO4YYd6MlTgRK6GPf3LSlR5UGS6sYMsPo5QFWvfYqLZQgQbPU1WFSa= ID Date Data Source [id number] 11/30/2020 08:25:07 AM EDT [facility] Name Value Range Interpretation Code Description Data Ellen e(s) Supporting Document(s) History and Physical [facility] LMLTOm6yJlRSVmOa38/HTRraHXCwi4EeQGtlZRb4DWheGUPjL0LhZOR2uK9wNKH9UMfASbIsDiLgENV0 lbm VyJtlHJnBoHZShNfxBIeFtLQtaXeputLBlDM2ZaPA2RLUtR70mOYPhHPHhT5GxGSRmELN+Jl1FHNJnsQ PhAM3ZZzxR4Gcne+G2Fb2x7B5JqTFBVwy9iKYNKogFmEc9a9ZlvR10TVF1IwDozFC1WOa4w01/LyWRlo aD3QDxsJ1tbbsRJ7vAcTUeYYySt5Z017nNvEFVRBa+ cw0OnmBKHG0jH5I/wwxlukha5VVBVHIYPFGOfEPg+KATJ0A1MRCDzwMNpsGGDNfCg5iWWEtuZWO6/A4N ftaaH1RP8WKlnxNPBSoqNqG7ar/R8L/ofIi+9Q5N4UVVGen+WWtGZ8BXXgCVQe8EgNQxKhHUOgYXdzhm ngvoM7DFKuGPyjWQIiD9wMa+V86WJ+sKV11WhuSCSZ p1TwDoiBTPr0OwhBCj7MlzAazWJh4hI3FBlSYNAp7x09GQ67oAQCQ7T67L9etLD7mgbvGNBBQ6wYWsGm iGopRocumhjZqb8OfKexjw98u0j7EAH1s7y+giyh6ZxjfmLb5JimB6Yk59RyKAPLZcGPBfgj9++FNFQ2 sr8WOi/eqm0SuSZluMDpKXvVXAszxQx2COvXVjjc1y KJRWpzc/9KX8xTUFmKgT6diJi0F6Eia+cLJHYfNaSZ2MNVeWwveJ33rVypL9mA8ef5wAIPMFcOTURsZr EG6VdRP750VOiWz7PHy1L76Md5u4bs2J05X9vk2ROu8PUO0tbSTTLLveGVjQVWK8dwcidwMJZFACRSEP 1ZbEcFmPJoefDBxZ2YGabeDfmCn1vXkNwkAusVMEuZ KN7mNhO/I0rBnQODIsok9DFuwVPPN/hdNqdSMS2RF2dvxZrQqPplO564bOIcyQTuo3G65YayT1l7mfC6 0IQ/CrGmE62raqQHY9YXbQlTwy1MZEVKLXx8n9yHmEPxk2FgCyGCTkD2gR6TOQshsOL0CSzVWoVGfNmA lrWyFZi4e3Y0lofSTijMo9HsnyzBTFcAJXDf8a+Iris [file] Fdw7Hm8wHAJTKc3+GUzzoBJgyXbqRZIIHvO7KFEgAVrgHHZBBa7W ID Date Data Source [id number] 11/30/2020 05:42:47 AM EDT [facility] Name Value Range Interpretation Code Description Data Ellen rce(s) Supporting Document(s) History and Physical [facility] CGJWVv8aRsUTKqNg79/TRKcoAXJkm3GfDYmbTVi2PPteUBTzW6FlQMS3vM7lIIN6HIgLLhGxYgFhHNB1 lbm [file] Saúl/UY3QUyYDkhMz+ZZ19d4yu6gMBZ4CJdqYCeCDFWhoYDq3UWtRekkQ6TIqwFlgq0rezlb4xDtDH+zm8 [file] ICAgICAgICAgICAgICAgICAgICAgICAgICAgICAgICAgICAgICAgICAgICAgICAgICAgICAgICAgICAg ICAgICAgICAgICAgICAgICAgICAgICAgICAgICAgICAgICAgICAgDQogICAgICAgICAgICAgICAgICAg ICAgICAgICAgICAgICAgICAgICAgICAgICAgICAgIC AgICAgICAgICAgICAgICAgICAgICAgICAgICAgICAgICAgICAgICAgICAgICAgICAgDQogICAgICAgIC AgICAgICAgICAgICAgICAgICAgICAgICAgICAgICAgICAgICAgICAgICAgICAgICAgICAgICAgICAgIC AgICAgICAgICAgICAgICAgICAgICAgICAgICAgICAg DQogICAgICAgICAgICAgICAgICAgICAgICAgICAgICAgICAgICAgICAgICAgICAgICAgICAgICAgICAg ICAgICAgICAgICAgICAgICAgICAgICAgICAgICAgICAgICAgICAgICAgDQogICAgICAgICAgICAgICAg ICAgICAgICAgICAgICAgICAgICAgICAgICAgICAgIC AgICAgICAgICAgICAgICAgICAgICAgICAgICAgICAgICAgICAgICAgICAgICAgICAgICAgDQogICAgIC AgICAgICAgICAgICAgICAgICAgICAgICAgICAgICAgICAgICAgICAgICAgICAgICAgICAgICAgICAgIC AgICAgICAgICAgICAgICAgICAgICAgICAgICAgICAg ICAgDQogICAgICAgICAgICAgICAgICAgICAgICAgICAgICAgICAgICAgICAgICAgICAgICAgICAgICAg ICAgICAgICAgICAgICAgICAgICAgICAgICAgICAgICAgICAgICAgICAgICAgDQogICAgICAgICAgICAg ICAgICAgICAgICAgICAgICAgICAgICAgICAgICAgIC AgICAgICAgICAgICAgICAgICAgICAgICAgICAgICAgICAgICAgICAgICAgICAgICAgICAgICAgDQogIC AgICAgICAgICAgICAgICAgICAgICAgICAgICAgICAgICAgICAgICAgICAgICAgICAgICAgICAgICAgIC AgICAgICAgICAgICAgICAgICAgICAgICAgICAgICAg ICAgICAgDQogICAgICAgICAgICAgICAgICAgICAgICAgICAgICAgICAgICAgICAgICAgICAgICAgICAg AFMcCGIqBWHjPKOqYWEhUSQbYJNcUWAkPJYxZCTgYIJvGNClIQSgPCMsVILuHXEzPSe8P4ehCBIcNGDi QG0eBUx7Sx0+OEfURrKvVBW0urEktR0FLW0ni9DiQU srLWDzs1IfDMh8IR3RRQVdURgnJL6ISLccjp9DPKScFZPfaVNDz4tmVzLyFAY2NGDeBbfuVC3NBWQpG4 jreqFnHPAeENRMCEvlEFIQJWjbRWFIISZbAZAsRgCvJpZqGMZtNFFuDUBCYVO1LATtPxBiJBbrGY7Wz4 JwfWZ7HQr+Nx8FYG8sc4JnGDj5BUVnSO0gho5XIShV UlIbN4ViasI1EFHrHYNnRu5SIBKnJHYsdIL8RSVtKFIXUeVdA8QatA47CTQKMp8+DQplbmRvYmoNCjQx MPLam7KmHWm8OT8VYPYbZBa9dNEuHBXTNJN7FOKtMEyio5FaVAZqxQWuMA6MBiUoRBBoJSYyDm7rNTAk TQK1RsT0RVSJHY5JAFWzDSOotGIpUBFbLXZPFV3PDQ qnCDC4LNYuikJsiZDfPOapYC1VWUMxfbQlMPHwHNCZTZk+Kl3VCO7ta9DiRQk1PoOvEZ7owm6XPMjTJt WfT5I2hPUvC7W4JJzbLt4PLTHcOQPgAoycZWENIOgcAH2CAA2sheJ9NR8VpKOjDRZnLUYzbXWiZGx5Q2 6onIOkRKdaKK2VABH+Claudia+Rp1WIYAoGZZyNIUsMuFv MMUQDdAoD2MsS2UWr7TmT4KkBC79yRhphtMrPZozXT9PSC2cOUBbQALLNJ8FtHVitP2slwO6LRXjYKWN OtWiX88urFFvWCSyUHY9PKPkGi7XGOKwE1BfdiPozXvtmjWaSAFdDZIPBZ0GPFdillYagROqhFqnFP75 gEwbQY6AVb9ZKaOpJL9kwo4NuWVrKd4AHAC5Sz5BJH YlWGOvVMEqWQT8PJTeFsWnKJsrWLWpHFOsTRU5DVWkTOHeAF0AMdTzFQZsCSM5PVNaBVXbNXBkif3YJL WwKLW4LbSkWJMcQRIyOEXsICxxDCXuOKUhRJZ1XLEnZPJrWE4WPnIjCNFpBEWwPlYlWNBoMXNzyu2LXK TiURPhJLGaAGPkAGMjAFFuAJcuJQMaDWG3FOUyYJGo KLNfKQ3GHtPmHADjIPn2XhGdVSWgPDSlwz8QDTClTEYuEGq5CBUfDXRxPPAjKJrxTOAsIOZmLVU6RGHa CXCrNM7IFwSjFZKxLRJkKBOuEAVrETJwdq1STRAvLMZcEIU6KkCsWFCsLTDbXAwpEHWjIUE6MMToTFHu MPTuXK5YZdUdXIVqDNujJtUgSGHhJQQcfi8SXGPxWO OtSjIdOGNrNCPkRSKlRSnoUAEdJZBgMBZ0JWCvIQBpFK8NLrYkPGEmKuN9QnBcHIXwPHKobz1MWBCkHB WzFBT0JdHcOPVhLVXnUXqzTUTgMLD6QgN2MLNaSISiKB0PZbXiQRAlFxL3MsQfCAZqLVXsot1CJMEzDK NkCuIaNqFwZUGkYKTlBSxtUEGhGSM2RKM3QCIgXFPf XB7GOgMuKJXdInvlAcrbIXFfJKEwzp1PMPZiSADqRQB6JkQaJTFpRIKdFAruRURlCRJ7CdF7EKRoOCXj QY5QGgOzSQWgBdz5REWhBQDaTAOopk4KTGSjZSBxTCG5DaOuYAQtKGXnGPuzJHMeGALbQfF5UDXrFEJd QY0VUlBdCUJjHgC2XZctXWMcOKFfwm7TAMVvTVWmBF S9MNPkOIUnKLMiJModVYIbEGIkOBtjBGQsMKXqHP3HEvAfTKPdUXS4DIzhPCCnLHJgfp2IVQHpFZB4Iw OzZlVdTSYeOXHxBBciZMWlQEXtWbE3UQDeNCGfCF2CHeKhVNBhWPW3NHQgPXLrXGZpja6ACXCvFXU9AD O2HiTyMFOcSKMnCGlkQLCuJOV2ZXS2GJMnTTKvIW7B CeLgHPFuUVS9OmZaOYMdMYSxdc3IQURlOJT6UQS7ZWZaPRIgUTVtXBvkUTIuFQI3PcJ4CXHkFNHnJY8S NwJgBFGxMRH8FkKoYQKzGBUcfw5ADSDuLRA1Pxn3UJIcJQHmXFFiOMu4kfDapXIxOEg2RR6LW8CcraTp FVZVRy3Dm964PBUdRAAaDh8IU6btJm6bFRGtIPWYBs 1YOMi4STajJWDgEbh1QLU9TNorJOY5YDSoYfK5XFLwNWBnRPP+NAq7XLP9XVOyWTw8MnFpC8EfMCP5Ve F7YDhgD1IoKuNzDe4wIFLJRm5+XLnqfPFidUemHKDEFwA4FYYnRYzcOBDSIr3J ID Date Data Source [id number] 12/01/2020 10:36:00 AM T [facility] Surgical Pathology ReportName: CONRAD BYRNEMRN: [id number] Number: [id number] Date: 11/30/2020 00:00Received Date: 11/30/2020 14:55Physician(s): TASHIA PHOENIX MD PINTER, DAVID J,[facility] [place] To: TASHIA PHOENIX MDMEHTA, RADHIKA, MBBSSpecimen(s) ReceivedA: Peritoneal implant biopsyClinical HistoryIR guided biopsy for peritoneal carcinomatosisDiagnosisPERITONEAL IMPLANT, NEEDLE BIOPSY: METASTATIC A DENOCARCINOMA. (SEE NOTE).NoteIn the setting of 5.5 cm mass in the pancreas, these findings arecompatible with metastatic ductal carcinoma of the pancreas.Osmar Paulson M.D.;Resident PathologistElectronically Signed By Luther Bhat M.D., Attending Rgccxhavxvm06/5/2021 10:36:25 The attending pathologist named above attests that he/she has personallyreviewed the relevant preparation(s) for the specimen, performedmicroscopic examination when indicated, and rendered the final diagnosis.Unless 'gross-only' is specified, the final diagnosis is based on amicroscopic examination of office services representative s ections of tissue.Gross DescriptionThe specimen is received in formalin and labeled with the patient's name,"Sherrie Byrne" and "peritoneal implant biopsy". It consists of multiplesoft eaton tissue cores ranging from 0.3 to 1.7 cm in length and averaging0.1 cm in diameter. Totally submitted in two cassettes designated A1-A2.NUNAKAUYARMIUT\\This report may include one or more immunohistochemical stain results thatuse analyte specific reagents. All positive and negative controls havebeen reviewed by the attending pathologist and are satisfactory. The testswere developed and their performance characteristics determined by [facility] Path[facility]. They have not been cleared or approved by the USFood and Drug Administration. The FDA has determined that such clearanceor approval is not necessary. Name Value Range Interpretation Code Description Data Ellen rce(s) Supporting Document(s) ID Date Data Source [id number] 11/29/2020 08:50:04 PM EDT [facility] CT ABDOMEN PELVIS WITH CONTRAST [id number] FRANCO RESULT - FINALInterpreted by:Yaritza Lima BeginsSigned on [place] Nov 29, 2020 8:49 PM by Royce [...] COMPARISON: MR ABDOMEN WITH AND WITHOUT CONTRAST [id number] 11/27/2020 5:47 PM FINDINGS: Lungs: Minimal scattered [...] rce(s) Supporting Document(s) ID Date Data Source [id number] 11/29/2020 03:41:00 PM EDT [facility] Name Value Range Interpretation Code Description Data Ellen rce(s) Supporting Document(s) SARS-CoV-2 RNA 2019 nCoV Real-Time RT-PCR: NOT DETECTED [facility] This lab was ordered by [facility] and reported by [facility]. ID Date Data Source [id number] 11/29/2020 05:33:13 PM EDT 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 ID Date Data Source [id number] 11/29/2020 05:31:11 PM EDT [facility] Service Cmnt XXX-Imp : NoneRespiratory P CR Panel : PCR ResultsMicroorganism XXX Cult : See Labs Tab for 2019 nCoV RT-PCR resultsHAdV DNA QI LARRY+non-probe : Not DetectedHCoV [id number] Nph QI LARRY+non-probe : Not DetectedHCoV [id number] Nph QI LARRY+non-probe : Not [id number] RNA Nph QI LARRY+non-probe : Not [id number] RNA Upper resp QI LARRY+probe : Not [...] DNA Nph Q LARRY+non-probe : Not DetectedB [id number] DNA Nph LARRY+non-probe : Not Detected Name Value Range Interpretation Code Description Data Ellen rce(s) Supporting Document(s) ID Date Data Source [id number] 11/29/2020 03:45:39 PM EDT [facility] Name Value Range Interpretation Code Description Data Ellen rce(s) Supporting Document(s) pH of Venous blood 7.40 7.36-7.41 [facility] Carbon dioxide [Partial pressure] in Venous blood 50 mmHg 40-45 H [facility] Oxygen [Partial pressure] in Venous blood 30 mmHg [facility] Base excess standard in Venous blood by calculation 5 mmol/L [facility] Oxygen saturation Calculated from oxygen partial pressure in Venous blood 56 % 60-85 L [facility] Lactate [Moles/volume] in Venous blood 0.6 mmol/L 0.5-2.2 [facility] Bicarbonate [Moles/volume] in Venous blood 32 mmol/L [facility] ID Date Data Source [id number] 11/29/2020 03:16:45 PM EDT [facility] Name Value Range Interpretation Code Description Data Ellen rce(s) Supporting Document(s) Leukocytes [#/volume] in Blood by Automated count 7.7 10*3/uL 4-10 [facility] Erythrocytes [#/volume] in Blood by Automated count 5.05 10*6/uL 4.6- 6.1 [facility] Hemoglobin [Mass/volume] in Blood 15.0 g/dL 13.5-18 [facility] Hematocrit [Volume Fraction] of Blood by Automated count 45.1 % 4 1-53 [facility] Erythrocyte mean corpuscular volume [Entitic volume] by Auto mated count 89.3 fL 80-96 [facility] Erythrocyte mean corpuscular hemoglobin [Entitic mass] by Automated count 29.8 pg 27-33 [facility] Erythrocyte mean corpuscular hemoglobin concentration [Mass/volume] by Automated count 33.3 g/dL [facility]0-[facility] distribution width [Ratio] by Automated count 13.3 % 11.5-14.5 [facility] Platelets [#/volume] in Blood by Automated count 314 10*3/uL 150-400 [facility] Differential cell count method - Blood [facility] Neutrophils/100 leukocytes in Blood by Automated count 78 % [facility] Lymphocytes/100 leukocytes in Blood by Automated count 12 % [facility] Monocytes/100 leukocytes in Blood by Automated count 9 % [facility] Eosinophils/100 leukocytes in Blood by Automated count 1 % [facility] Basophils/100 leukocytes in Blood by Automated count 0 % [facility] Neutrophils [#/volume] in Blood by Automated count 6.09 10*3/uL 1.8-7 .0 [facility] Lymphocytes [#/volume] in Blood by Automated count 0.90 10*3/uL 1.2-4 .0 L [facility] Monocytes [#/volume] in Blood by Automated count 0.66 10*3/uL 0-0.8 [facility] Eosinophils [#/volume] in Blood by Automated count 0.07 10*3/uL 0-0.5 [facility] Basophils [#/volume] in Blood by Automated count 0.02 10*3/uL 0-0.2 [facility] Nucleated erythrocytes/100 leukocytes [Ratio] in Blood by Automated count 0 /100{WBCs} 0-0 [facility] ID Date Data Source [id number] 11/29/2020 03:35:27 PM [facility] Value Range Interpretation Code Description Data Ellen rce(s) Supporting Document(s) Lipase [Enzymatic activity/volume] in Serum or Plasma 37 U/L 13-6 0 [facility] ID Date Data Source [id number] 11/29/2020 03:35:27 PM [facility] Value Range Interpretation Code Description Data Ellen rce(s) Supporting Document(s) Albumin [Mass/volume] in Serum or Plasma by Bromocresol green (BCG) dye binding method 4.8 g/dL 3.5-5.2 [facility] Bilirubin.total [Mass/volume] in Serum or Plasma 2.1 mg/dL <1.2 H [facility] Bilirubin.direct [Mass/volume] in Serum or Plasma 0.3 mg/dL <0.3 H [facility] Alkaline phosphatase [Enzymatic activity/volume] in Serum or Plasma 80 U/L 40-129 [facility] Aspartate aminotransferase [Enzymatic activity/volume] in Serum or Plasma 10 U/L <40 [facility] Alanine aminotransferase [Enzymatic activity/volume] in Seru m or Plasma 8 U/L <41 [facility] Protein [Mass/volume] in Serum or Plasma 6.8 g/dL 6.4-8.3 [facility] ID Date Data Source [id number] 11/29/2020 03:54:58 PM EDT [facility] Name Value Range Interpretation Code Description Data Ellen rce(s) Supporting Document(s) Bicarbonate [Moles/volume] in Serum 24 mmol/L 22-29 [facility] Chloride [Moles/volume] in Serum or Plasma 99 mmol/L 98-107 [facility] Creatinine [Mass/volume] in Serum or Plasma 0.92 mg/dL 0.70-1.20 [facility] Glucose [Mass/volume] in Serum or Plasma 96 mg/dL 70-140 [facility] Potassium [Moles/volume] in Serum or Plasma 4.0 mmol/L 3.4-5.1 [facility] Sodium [Moles/volume] in Serum or Plasma 139 mmol/L 136-145 [facility] Urea nitrogen [Mass/volume] in Serum or Plasma 13 mg/dL 6-20 [facility] Confirmed Anion gap 3 in Serum or Plasma 16 mmol/L 8-15 H [facility] Osmolality of Serum or Plasma by calculation 289 mosm/kg 275-300 [facility] Confirmed Creatinine/Urea nitrogen [Mass Ratio] in Serum or Plasma 14 [facility] Confirmed Calcium [Mass/volume] in Serum or Plasma 9.3 mg/dL 8.6-10.0 [facility] Glomerular filtration rate/1.73 sq M pre dicted among non-blacks [Volume Rate/Area] in Serum or Plasma by Creatinine-based formula (MDRD) >6 0 [facility] Glomerular filtration rate/1.73 sq M pre dicted among blacks [Volume Rate/Area] in Serum or Plasma by Creatinine-based formula (MDRD) >60 [facility] ID Date Data Source [id number] 11/29/2020 06:46:43 AM EDT [facility] Value Range Interpretation Code Description Data Ellen rce(s) Supporting Document(s) [facility] DSEGNy4dIdTLKdLm88/UPGzlCIPcc5TnCEfgMZq3KGlcJMDeD5OiQPF2rQ2pWKY3UMeBPvSmFzYyRMBc lbm [file] ICAgICAgICAgICAgICAgICAgICAgICAgICAgICAgICAgICAgICAgICAgICAgICAgICAgICAgICAgICAg ICAgICANCiAgICAgICAgICAgICAgICAgICAgICAgIC AgICAgICAgICAgICAgICAgICAgICAgICAgICAgICAgICAgICAgICAgICAgICAgICAgICAgICAgICAgIC AgICAgICAgICAgICAgICANCiAgICAgICAgICAgICAgICAgICAgICAgICAgICAgICAgICAgICAgICAgIC AgICAgICAgICAgICAgICAgICAgICAgICAgICAgICAg ICAgICAgICAgICAgICAgICAgICAgICAgICANCiAgICAgICAgICAgICAgICAgICAgICAgICAgICAgICAg ICAgICAgICAgICAgICAgICAgICAgICAgICAgICAgICAgICAgICAgICAgICAgICAgICAgICAgICAgICAg ICAgICAgICANCiAgICAgICAgICAgICAgICAgICAgIC AgICAgICAgICAgICAgICAgICAgICAgICAgICAgICAgICAgICAgICAgICAgICAgICAgICAgICAgICAgIC AgICAgICAgICAgICAgICAgICANCiAgICAgICAgICAgICAgICAgICAgICAgICAgICAgICAgICAgICAgIC AgICAgICAgICAgICAgICAgICAgICAgICAgICAgICAg ICAgICAgICAgICAgICAgICAgICAgICAgICAgICANCiAgICAgICAgICAgICAgICAgICAgICAgICAgICAg ICAgICAgICAgICAgICAgICAgICAgICAgICAgICAgICAgICAgICAgICAgICAgICAgICAgICAgICAgICAg ICAgICAgICAgICANCiAgICAgICAgICAgICAgICAgIC AgICAgICAgICAgICAgICAgICAgICAgICAgICAgICAgICAgICAgICAgICAgICAgICAgICAgICAgICAgIC AgICAgICAgICAgICAgICAgICAgICANCiAgICAgICAgICAgICAgICAgICAgICAgICAgICAgICAgICAgIC AgICAgICAgICAgICAgICAgICAgICAgICAgICAgICAg ICAgICAgICAgICAgICAgICAgICAgICAgICAgICAgICANCiAgICAgICAgICAgICAgICAgICAgICAgICAg ICAgICAgICAgICAgICAgICAgICAgICAgICAgICAgICAgICAgICAgICAgICAgICAgICAgICAgICAgICAg ICAgICAgICAgICAgICANCjw/wTGeJ3dfsIHveuY0Z5 dyVg0FXd8XFQ1ef4NpPQCfZYphheZeAwpLZxBvMNBtUeqXHyc6SJvwFK3KkXHoE5TaZ7AzQMjeRY0UKE SxCVXcbWKoLFBmLSYsXiP1QTPtHPjaDA0NnXLpLPovGGQrJMGaGjFgIEWuYTEjNKZdUDCkLILGZVKcXN FrTlHxGFhmDV8Yp3QptYJ7QAh+Hg8PSX8nz0MmJTsy VoOyEY7lhq3SJBbGCxNgV8LithZ6TMV8UQQtUt5HGPFdKHNzwSPgKVMzQINJYmWmA5PmdF51DAKBWm6+ JTlboyGiFaoYZwK9IXUkz9QcUSx3WB7PLWZcVAb9cYPjH45xm9RcdITuYgisW7W2cD5tIb0thsamBUOu ECBwJPOiZQ5qTUQfDVBxDhL5MWDEKD6UNKBfGJVivB OsEBClNVDOAZ5XXRyhTCB9NKKgexRunMIwOIljUF0VYOLrbeAkSeNsSCSBBXz+By8DCZ4yx9RdEBtcFQ ZhWE2gny4WZIzUBhOdY4O1dJUeO9Z8IPjrSg5UCKBdCYIdOgMpDPMYIMmwVP7XIT0yajI3AE6CoETfYQ BcGGXuxJVwDSu9F10puJIcSDvuJW5YFBR+Claudia+Pg0K EHJoNOGzMJQfIcSqEUTHRvLsW3LoK6ZMv9MbV7LoYV38nSffmxLvLIhaTZ6XOQ6pMCBfWAEYBH5UpLLt qW2rgiAyFfWqINFHCtFoL00xuMPkGYFbCSHwNCKnOt2QTSLoW2GuzvIorAessdDsUFAlLQUFKR1CHSse koBojWIckMciUB96hKsqDE2NVd3BDfKwKM6ybg8WlT FtVk9WGCQsXn2VAGExPUYcGDUmCOE1ADGzJbWwYHteEMXuBGRpZMX6QEGxCENvDQ5REdFvMTCnMiO3PA GvYNSqACPang3ZUBDeNFWtVhOuXULaELRnBZCkWThsDTPaOBBhRSY7ESSuNCTrLE7USuNnXBNfNZYxEU iiSSDmHRZica4ZQSMrSQYpSkYsRGSnCYWeYPXkKGlh LWLeRUG5RHaxSFBiRUAaXB0RSdTmWQQaVPbnODYqJWJoMOAldt2ABTVoKEXlMUN9WGFcLNVkSMJbVWrd GJLcEOS6YIh0QMLfCMStTK5PUcSgLEDrXZS1UICfZFZoODCufo5VIJTeEQTcPTq6XaJdYUFmTSCbMPuh QLBsLLW2RaUaSSQdKBRrNE3QKdCwGOVaITS3XEieLM QpTAIwdh5PNSQqFHBvGhkrRlRyULGbMRHzVJecHOJfFTT5RTR9VRTjGDLgMC3YRtHjVWMsNVjtYOjkNO MlRUHzqz8GRHAtXOBmAUZ2QkGoAARbPIPbCNwqGZUvVQA0HwE8DVNvFFKdZJ2MIsGlNXLsYLe2OhOoRC HnRALhmp9HEDDvSUWdPKjiORNoMGRmUDFqOJrqFOMk PAImIiH2LWFbJUUqEY5CRtLoPXLqJwX3CDxwWJEhOLWhxq5RXJFsLLSeHNS6WqYfXLOfPAVeJRkrVUTc EPPhPKKsFYTvDKPfNL9TQyZeDAZgOcM5IesmFPZfZZSfcs9DHVKhRWRlVyp5BXJsISHqXMFdKSrvAIEx TDBwEIGeSXTgDUDfUS8XCsEiIPRaIqPmLEQjNXDnQG Xdbl5UPXVpBWXySQN5WOYzVKMqIBFxMVmuXKJaNWP7KLTyTBBlIQMqGR4IIpKzZUMlHbS6DITfSAKiGB Sddc4BGHOiUJInRdD4CDFaAVZyJPFlCOpjOYZdFGS8PFJaFMRlQETxRN3KMsIlOCAvUlA7SkdqZWKxPT Emxh1YzNLbfAlhtu3YTXoEEl1JtOurMGY8KXhiTg6q tYSmNMClZCXPId9KelKsQDMlDAEVILgzCMLxGANfYHc9Mkl2CiE4WBXkYfG8EtT4ZtP3LKi9LSI4Eppe AkS1JOL3OkfaZjk0Pqv6UVFeIWFzDMzaEfI5BfkfBwXmUYQ+ZB8eGLt+Mm1Od1PgpwY8njQjKNncHate Rp7KSJRGD6DTIs== ID Date Data Source [id number] 11/28/2020 10:55:45 AM EDT [facility] Name Value Range Interpretation Code Description Data Ellen rce(s) Supporting Document(s) Progress Note [facility] VXFVCa0uUkVEQhVm24/GVEbpPMVxl5NaJNeaBSk2HUekTNWmY0EqOAN2qL1bTEI6BTwZDdMxByZjJTRs lbm [file] T0YNCg== ID Date Data Source [id number] 11/27/2020 08:15:02 PM EDT [facility] MR ABDOMEN WITH AND WITHOUT CONTRAST [...] (IV); COMPARISON: CT ABDOMEN PELVIS WITH CONTRAST [id number] 11/26/2020 8:23 PM FINDINGS: Liver: No mass. [...] rce(s) Supporting Document(s) ID Date Data Source [id number] 11/27/2020 12:07:56 PM [facility] Name Value Range Interpretation Code Description Data [facility] Supporting Document(s) [facility] SKLRNu9tFiYBBkXg31/AYQdyQKXns6OsVQrnXPk0MBleAUCcW9XoTPW7dC5eYGH0KMeFYoYxDwNcLLYl [facility] [file] wm+CONSTRUCTION PROJECT ENGINEER+G7PsWSs8TKL3vNs19EYjOHgs/O/Q0T28MgZ0eh+5+Las1lyN5+XKu1bhahK4daRKd2fCc//e++ [file] CgABY1Gvg8RAZiTQW5IAT4KX4yNSHGVp9+AKrjjEZzpDuuTNMMWcIsUZQ8PRhrMHBAUx5H ID Date Data Source [id number] 11/27/2020 02:36:39 AM EDT [facility] Name Value Range Interpretation Code Description Data Ellen e(s) Supporting Document(s) History and Physical [facility] TEGPFw0yDvVUPrEo72/XKXnlZXWje9OgUEnwFOc6DFujHURoQ3VlMTP3vC9nKWO6YCsJSiHvAiRcTTEp lbm [file] AgICAgICAgICAgICAgICAgICAgICAgICAgICAgICAg KSIdHLAmPYBrEBShSZZwCWWyWEPzRMRwMDBtQWVtJQHxNJNfFWPiFJZmJGZlEGPxLMJpCQAuEA7FBXWi ICAgICAgICAgICAgICAgICAgICAgICAgICAgICAgICAgICAgICAgICAgICAgICAgICAgICAgICAgICAg ICAgICAgICAgICAgICAgICAgICAgICAgICAgICAgIC OuQEXhVN9KDMNmSFFsDGHwNSXvWAZnQXAfPCZlQKDxYXUiHSFxMMKvEIWeLTSdEFPpXHQoPYUqBSQnCQ ZgKGLyGZGaREBnMHRmGGKwBQStQUSwNJSnHTGsMANkVEAuESUyHTFnXNRrWOXfZQ2YBIAmZZFlINGhRN AgICAgICAgICAgICAgICAgICAgICAgICAgICAgICAg FPXcXVUgZAVlPRDhLFUmEYNiFLHgKOFkKLPxAHFpTUBsARNaYZOrSQBuBDLqABKnYRYqCZUaNKVkMY9G ICAgICAgICAgICAgICAgICAgICAgICAgICAgICAgICAgICAgICAgICAgICAgICAgICAgICAgICAgICAg ICAgICAgICAgICAgICAgICAgICAgICAgICAgICAgIC WzCHMnGGYuWK6GYEQaIFBkFQZzLFZxQOBwTPBeWKMaFJUvVZOkSUBtVDXoBYGuVWDlTHDqUSOiWSZnBH AhHWOxEACrRBVrOBZyGHEjKHPlBDVrPBBpVNPwKPVhOGEjZTUcMMIfDSZmSAQaNJDqEN5HROOoPEIkUH AgICAgICAgICAgICAgICAgICAgICAgICAgICAgICAg ICAgICAgICAgICAgICAgICAgICAgICAgICAgICAgICAgICAgICAgICAgICAgICAgICAgICAgICAgICAg EZ9KHGKsTTWnSZQpNWXzKSYbGMGzHNNkDWIlXQRdXJGgATHgFPGjNUUnNBPpUUHeTQHgTGRzDBTiWJNc ICAgICAgICAgICAgICAgICAgICAgICAgICAgICAgIC WcLWCvWEIgLEBgRF6SCYUxDNRhHOXwDUGgDJWmGCMdWYDhEUPaRGVaRRBwOTWhUWRxGHFpOYNfVFPiSI YiFKWyJZPrBGHcOFIuQWYkEFIzDECcYEWhNHXvSPSnVVJlGJHiCYNrSTYpYCCrDFIdEGHwEW3VFL36wK Iyk1O6VOTgDK7jbfe/Mg0KRHdkpzLslPAzCY5ZCsSo HQ0sbf3LZvViPI0exd9NUNrNOuPaK7W4pHQhEPQpAWOZTpJwG61nJLtuRh53MNweTTFsJbJnKYe7Yt0K HaGcV6arIULeMpS4IQSoYxS8UBYdIrA2XGOiBfJqJXImVNWkVPNzPXTKKKV4NHJsIqXiKtKzSNEyTE6F FZKjH599coAzNc6LGx9GLnJjLP6ifr5MVqzbAANsUg mGYzu2NKpzPM9HvIIyvVIpFXWzFPFDQwMfE5prb7FaFgyfMORTGKolGP2Wd4GlcGSgYGo+Ww4WOS0ec6 SfBFeyIFMgSL2pwa8XOTdKIiWcK5NquGpbEOgsIYFpmPAHAAZ7WK6qDhFLjW0rxGHyTOZNQzYXJZP4UX hgRoMpTjMbDZVuAYo0WJGFLQyIKpUkI8Lfu9DhIxC2 KGArMhXyNNpjAFVeAhK4RO09kAtfPR7KJFTkBUYgEI14SFE3ZQUhFs4WMg8TQvYyXF6acu1ABoxrHAJy YpxPJiv7RYhcRV2BaXHwX1MpnECyw6lJVdOaV1JHZSX8SBZuXy2PDRQoXcRnQDByKNegXJ8nUGOzHTXY lLkaxlO1FO0UQU2sifJtJL8GSpKxXh2kXk6BKeWfU0 VtC1TxTDUtROFFXRmoHI3MGUdyZL4nXY8Iu1YYvHAadH9lui2TJUMqIXQxDhunvk6URtviA1B6vGqkHM CfYppwYTHBSAooIL2TBSTmVMK4JGDzDlJbBOPPQgAoO64tAP2UN3Ogk38hEtA6UYMhAySxCXglCT76yX kauhBzqYIrxLnrTA7BUj7+DQplbmRvYmoNCnhyZWYN EhBkASUXPjSoKCKsATNeSBYuPnJ5JsFpCq9GHSWeSYPsSCQiYcXuTNKxUSHcAOdvOVNqEOQ7DbE6KLRc VAXuHL5XBzKnGSHqORTzUpPyUTDoUZEoxu9UFYHfLORiHPK1AuBrOMKmFSWcLEizXWLhGDO9BXW3CBIe ZRCuZP4YTnHpZMDdTJW7AFxzNEYxPVHfao9SHZTvTG OmOFq1PNWuTGJqXAQyJZtqPWMjSUF4GSAgSPJjYRUlEK7OKnSuGEZxPLBsKCUxZTQqLQQsdw0WAGUxFI ViBmEpBFNeYSQuLLDuRXvmWPVdIJW8ZWU6SSRzIHQiZQ5IUjJlXOByRKQkRCZjQBQrRKYyzu8VKAGhNK UaZEo6JwBsIKMsPYIoGXxnQKSyARI5CNT3KFZoENQm TU6YJjAgENOzItI2PTUmXZWkBVApfo2BNAYqYIHqOJTpUSRjZJNzXABoRNbtVAPrNSL6DtJfSTUhHLIw EY2WTuYuKQVrWoO4BJdnLRXpUGQgrn1NVNKkTJMqGjw5VzCaHTKmORTrVSqaUEBgVSI7EXh9MYZsWXIj QR9KLmVqRXFbOtedCTocNXIzCNLowz3EHUAyEHMyAE UeOaWpZQXoSRTtSTpjAQKmQYN8MOW5ZWSdJVDbII3FDlAuLAXcMfx9QRFcZPIiXKSiux7WRAHsQISvJY U4EyIoUXVaOPJdDAhyAFLnPFSpGiInFVYmXMWkUL6VEtAaCSSgAkU0QLBqLOLqNYBhqe3YKFFeNNCeRB fbFLIbLOVnQOFaNCnnYRHiCHAoHLW2FJKrQCUkLT2L SxQyXJWaDdSxZQIjFIPkQKTmkw1NFOJwJNG6FiS7EBUhLYAaXOGkPDuhNOUxMFNjDHn0GXDvRANiAA5T EoEoVKHwAIInGZgyXMSmXVVfnr3LGDDsBOV6COZ1ZiFaYGNxDBPvHBuhQNRnBUP4ZRswHUFpQVBlCN1N GyEmCOStXHXqMnZeGYRjVKTuow3KTZXuVLI1KoLuQa OsTWOxFJMkRAqaPQCtUWV2NVj5XQNkBONqEB4YIeCcALQlEGK3ZLCfQNOpIDMyst9RiIZkgNmect0QXP bWDz3VlWajYFHwADrzVw7arCKlUDPmNAPTIw6FhhFaHDJnEYPCNZcbKQHbKSF6RAVfVDOnNuHsX9GgVY TyN3B9HxT4KXOeRaY1WQx3MnU3ZQmsKsIpMALdRwCy DbC7BjX7BIXwDfU4QlG8QzF7GgK+PE1mTFy+Bl1Gp7JyqqD1doWyRMo3Fdh1AE9EVLQUO8GOWq== ID Date Data Source [id number] 11/27/2020 01:35:49 AM EDT [facility] CT HEAD WITH AND WITHOUT CONTRAST [id number] INAL RESULTInterpreted by:Terrell Ritchie MDINDICATION: Trauma.TECHNIQUE: Multiaxial [...] rce(s) Supporting Document(s) ID Date Data Source [id number] 11/26/2020 09:55:25 PM EDT [facility] CT THORAX WITH CONTRAST [id number] RESUL TInterpreted by:LUISITO KirkROCEDURE INFORMATION: Exam: CT [...] clinical indication); or iterative reconstruction. Contrast material: [id number]; Contrast volume: 100 ml; Contrast route: INTRAVENOUS [...] rce(s) Supporting Document(s) ID Date Data Source [id number] 11/26/2020 09:51:30 PM EDT [facility] CT ABDOMEN PELVIS WITH CONTRAST [id number] AL RESULTInterpreted by:LUISITO KirkROCEDURE INFORMATION: Exam: CT [...] clinical indication); or iterative reconstruction. Contrast material: [id number]; Contrast volume: 100 ml; Contrast route: INTRAVENOUS (IV); Other contrast: Oral, [id number], 40; COMPARISON: CT ABD PELVIS W/ IV [...] rce(s) Supporting Document(s) ID Date Data Source [id number] 11/26/2020 07:07:00 PM EDT [facility] Name Value Range Interpretation Code Description Data Ellen rce(s) Supporting Document(s) SARS-CoV-2 RNA 2019 nCoV Real-Time RT-PCR: NOT DETECTED [facility] This lab was ordered by [facility] and reported by [facility]. ID Date Data Source [id number] 11/26/2020 10:18:33 PM EDT 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 ID Date Data Source [id number] 11/26/2020 10:18:15 PM EDT [facility] Service Cmnt XXX-Imp : NoneRespiratory P CR Panel : PCR ResultsMicroorganism XXX Cult : See Labs Tab for 2019 nCoV RT-PCR resultsHAdV DNA QI LARRY+non-probe : Not DetectedHCoV [id number] Nph QI LARRY+non-probe : Not DetectedHCoV [id number] Nph QI LARRY+non-probe : Not [id number] RNA Nph QI LARRY+non-probe : Not [id number] RNA Upper resp QI LARRY+probe : Not [...] DNA Nph Q LARRY+non-probe : Not DetectedB [id number] DNA Nph LARRY+non-probe : Not Detected Name Value Range Interpretation Code Description Data Ellen rce(s) Supporting Document(s) ID Date Data Source [id number] 11/26/2020 06:47:23 PM [facility] Name Value Range Interpretation Code Description Data Ellen rce(s) Supporting Document(s) Lactate [Moles/volume] in Serum or Plasma 0.6 mmol/l 0.5-2.2 [facility] ID Date Data Source [id number] 11/26/2020 05:45:00 PM [facility] Name Value Range Interpretation Code Description Data Ellen rce(s) Supporting Document(s) Leukocytes [#/volume] in Blood by Automated count 8.2 10*3/uL 4-10 [facility] Erythrocytes [#/volume] in Blood by Automated count 4.71 10*6/uL 4.6- 6.1 [facility] Hemoglobin [Mass/volume] in Blood 14.0 g/dL 13.5-18 [facility] Hematocrit [Volume Fraction] of Blood by Automated count 42.4 % 4 1-53 [facility] Erythrocyte mean corpuscular volume [Entitic volume] by Auto mated count 90.1 fL 80-96 [facility] Erythrocyte mean corpuscular hemoglobin [Entitic mass] by Automated count 29.8 pg 27-33 [facility] Erythrocyte mean corpuscular hemoglobin concentration [Mass/volume] by Automated count 33.1 g/dL 32.0-36.0 [facility] distribution width [Ratio] by Automated count 13.3 % 11.5-14.5 [facility] Platelets [#/volume] in Blood by Automated count 266 10*3/uL 150-400 [facility] Differential cell count method - Blood [facility] Neutrophils/100 leukocytes in Blood by Automated count 76 % [facility] Lymphocytes/100 leukocytes in Blood by Automated count 16 % [facility] Monocytes/100 leukocytes in Blood by Automated count 5 % [facility] Eosinophils/100 leukocytes in Blood by Automated count 3 % [facility] Basophils/100 leukocytes in Blood by Automated count 0 % [facility] Neutrophils [#/volume] in Blood by Automated count 6.23 10*3/uL 1.8-7 .0 [facility] Lymphocytes [#/volume] in Blood by Automated count 1.28 10*3/uL 1.2-4 .0 [facility] Monocytes [#/volume] in Blood by Automated count 0.44 10*3/uL 0-0.8 [facility] Eosinophils [#/volume] in Blood by Automated count 0.26 10*3/uL 0-0.5 [facility] Basophils [#/volume] in Blood by Automated count 0.03 10*3/uL 0-0.2 [facility] Nucleated erythrocytes/100 leukocytes [Ratio] in Blood by Automated count 0 /100{WBCs} 0-0 [facility] ID Date Data Source [id number] 11/26/2020 06:18:12 PM [facility] Value Range Interpretation Code Description Data Ellen rce(s) Supporting Document(s) Albumin [Mass/volume] in Serum or Plasma by Bromocresol green (BCG) dye binding method 4.7 g/dL 3.5-5.2 [facility] Bilirubin.total [Mass/volume] in Serum or Plasma 1.6 mg/dL <1.2 H [facility] Bilirubin.direct [Mass/volume] in Serum or Plasma 0.3 mg/dL <0.3 H [facility] Alkaline phosphatase [Enzymatic activity/volume] in Serum or Plasma 81 U/L 40-129 [facility] Aspartate aminotransferase [Enzymatic activity/volume] in Serum or Plasma 10 U/L <40 [facility] Alanine aminotransferase [Enzymatic activity/volume] in Seru m or Plasma 7 U/L <41 [facility] Protein [Mass/volume] in Serum or Plasma 7.0 g/dL 6.4-8.3 [facility] ID Date Data Source [id number] 11/26/2020 06:18:12 PM [facility] Value Range Interpretation Code Description Data Ellen rce(s) Supporting Document(s) Lipase [Enzymatic activity/volume] in Serum or Plasma 32 U/L 13-6 0 [facility] ID Date Data Source [id number] 11/26/2020 06:31:56 PM [facility] Value Range Interpretation Code Description Data Ellen rce(s) Supporting Document(s) Bicarbonate [Moles/volume] in Serum 26 mmol/L 22-29 [facility] Chloride [Moles/volume] in Serum or Plasma 98 mmol/L 98-107 [facility] Creatinine [Mass/volume] in Serum or Plasma 0.89 mg/dL 0.70-1.20 [facility] Glucose [Mass/volume] in Serum or Plasma 79 mg/dL 70-140 [facility] Confirmed Potassium [Moles/volume] in Serum or Plasma 4.0 mmol/L 3.4-5.1 [facility] Sodium [Moles/volume] in Serum or Plasma 136 mmol/L 136-145 [facility] Urea nitrogen [Mass/volume] in Serum or Plasma 7 mg/dL 6-20 [facility] Anion gap 3 in Serum or Plasma 12 mmol/L 8-15 [facility] Osmolality of Serum or Plasma by calculation 279 mosm/kg 275-300 [facility] Creatinine/Urea nitrogen [Mass Ratio] in Serum or Plasma 8 [facility] Calcium [Mass/volume] in Serum or Plasma 9.7 mg/dL 8.6-10.0 [facility] Glomerular filtration rate/1.73 sq M pre dicted among non-blacks [Volume Rate/Area] in Serum or Plasma by Creatinine-based formula (MDRD) >6 0 [facility] Glomerular filtration rate/1.73 sq M pre dicted among blacks [Volume Rate/Area] in Serum or Plasma by Creatinine-based formula (MDRD) >60 [facility] ID Date Data Source [id number] 11/26/2020 07:38:36 PM EDT [facility] Name Value Range Interpretation Code Description Data Ellen rce(s) Supporting Document(s) aPTT in Platelet poor plasma by Coagulation assay 33.2 s 24.0-33. 0 H [facility] ID Date Data Source [id number] 11/26/2020 07:38:36 PM EDT [facility] Value Range Interpretation Code Description Data Ellen rce(s) Supporting Document(s) Prothrombin time (PT) 13.9 s 11.6-14.0 [facility] INR in Platelet poor plasma by Coagulation assay 1.11 [facility] Routine intensity oral anticoagulation I NR is typically 2.0-3.0. Target INR must be clinically individualized. ID Date Data Source [id number] 11/24/2020 03:29:00 PM EDT [facility] [address] [place] [address] PHONE: [phone] FAX: [phone] Name .................. : ALECIA Gaviria Acct Number.................. : [id number] ROOM. ................. : [facility] MR Number ................... : [id number] Stay type ............. : E/R Discharge Date......... ... : 11/24/20 Admit Date ......... : 11/23/20 Admit Phys .................... : LEXUS VÁSQUEZ Date of ....... : 1985 Family Phys ................... : NO PCP Phone .................. : [phone] Age ................................ : 35 Film# .................. .:[id number] Sex ................................. : M Unsigned transcriptions are preliminary reports and do not represent a medical or legal document CT ABD & PELVIS W/ IV ONLY [id number] COMPLETE:11/23/20 23:38 90771 Reason(s): epigastric pain, known pancreatic mass on [...] fat. Based on Page 1 of 3 [facility] [address] [place] [address] PHONE: [phone] FAX: [phone] Name .................. : ALECIA Gaviria Acct Number.................. : [id number] ROOM. ................. : [facility]-20 Number ................... : [id number] Stay type ............. : E/R Discharge Date......... ... : 11/24/20 Admit Date ......... : 11/23/20 Admit Phys .................... : LEXUS VÁSQUEZ Date of ....... : 1985 Family Phys ................... : NO PCP Phone .................. : [phone] Age ................................ : 35 Film# .................. .:[id number] Sex ................................. : M Unsigned transcriptions are preliminary reports and do not represent a medical or legal document CT ABD & PELVIS W/ IV ONLY [id number] COMPLETE:11/23/20 23:38 63026 Reason(s): epigastric pain, known pancreatic mass on [facility]on 11/14 in [facility] subsequently described findings this is most likely [...] distention or pneumatosis. Page 2 of 3 [facility] [address] [place] [address] PHONE: [phone] FAX: [phone] Name .................. : ALECIA Gaviria Acct Number.................. : [id number] ROOM. ................. : [facility]-20 MR Number ................... : [id number] Stay type ............. : E/R Discharge Date......... ... : 11/24/20 Admit Date ......... : 11/23/20 Admit Phys .................... : LEXUS VÁSQUEZ Date of ....... : 1985 Family Phys ................... : NO PCP Phone .................. : [phone] Age ................................ : 35 Film# .................. .:[id number] Sex ................................. : M Unsigned transcriptions are preliminary reports and do not represent a medical or legal document CT ABD & PELVIS W/ IV ONLY [id number] COMPLETE:11/23/20 23:38 38696 Reason(s): epigastric pain, known pancreatic mass on [...] rce(s) Supporting Document(s) ID Date Data Source [id number] 11/23/2020 10:52:00 PM EDT [facility] 1 OrderSheet [facility] Emergency Department [address] [place] [address] Phone #: [phone] txz- [phone] 11/23/2020 22:44 Patient: SHERRIE BYRNE Sex: M [...] Only Nicolasa Alberts(Oxygen?(No)) Nancy; R.NYoshi(IV?(Yes)) 2 OrderSheet [facility] Emergency Department [address] [place] [address] Phone #: ext- [phone] 11/23/2020 22:44 [id number] Sex[facility] M : 1985 Age: 35y Reason for Study: epigastric pain, known [facility]/IV/DRIP/FLUID ORDERSOrder Description Priority Entered Acknowledged InitialedLR IV [...] rce(s) Supporting Document(s) ID Date Data Source [id number] 11/23/2020 10:52:00 PM EDT [facility] 1 Medication Reconciliation Report [facility] Emergency Department [address] [place] [address] Phone #: ext- [phone] 11/23/2020 22:44 Patient: [...] rce(s) Supporting Document(s) ID Date Data Source [id number] 11/23/2020 10:52:00 PM EDT [facility] 1 Medication Administration Record [facility] Emergency Department [address] [place] [address] Phone #: ext- [phone] 11/23/2020 22:44 Patient: SHERRIE BYRNE Sex: M : 1985 Age: 35yWeight: 83.9 kgHeight/Length: 71 inBMI: 25.8ALLERGIES: Sulfa Antibiotics Date/Time Medication Administered Medication OrderedStart LR [IV] LR IV : Bolus 500 mL, then 08856:06 11/24/2020 Dose: IV Fluids mL/hrTina Lonnie Mckenna [...] rce(s) Supporting Document(s) ID Date Data Source [id number] 11/23/2020 10:52:00 PM EDT [facility] 1 General Instructions [facility] Emergency Department [address] [place] [address] Phone #: ext- [phone] 11/23/2020 22:44 Patient: [...] department as needed. Follow up with a uke driver and surgeon today.Reason for referral: evaluation and [...] been discussed with the 2 General Instructions [facility] Emergency Department [address] [place] [address] Phone #: ext- [phone] 11/23/2020 22:44 Patient: SHERRIE BYRNE Sex: M [...] I understand that a doctor at this [facility] wants to give me certain medicalcare. The doctor explained that care to me, and I understand what that care is. The doctor also explainedto me what could happen to me if I leave here without having that care, and I understand what he said. Iwant to leave this [facility] without receiving the recommended care. I know that I am welcome to return [facility] at any time to receive the recommended care or any other care that I may need at any time,regardless of my ability to pay for such care.(Electronically signed by Nicolasa Alberts M.D. 11/24/2020 03:35) Name Value Range Interpretation Code Description Data Ellen rce(s) Supporting Document(s) ID Date Data Source [id number] 11/23/2020 10:52:00 PM EDT [facility] 1 Clinical Report - Nurses [facility] Emergency Department [address] [place] [address] Phone #: ext- [phone] 11/23/2020 22:44 Patient: SHERRIE BYRNE Sex: M : 1985 Age: 35yTRIAGETriage time: 22:45 11/23/2020.Chief Complaint: CHEST PAIN.( reports that it is a recurrent issue. Tonight at 8 pm he was so uncomfortable that he couldn't sleep.). Hehas had nausea. 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 ABUSE ASSESSMENT: No report of abuse. FALL RISK ASSESSMENT: Fall risk assessment completed. Risk factors identified include severe pain. Fall interventions initiated. Bed in low position. Brakes on. --23:03 11/23/20 Sade Mckenna R.N.PHYSICAL [id number] 11/23/20. Ambulatory to room.GENERAL / NEURO / [...] Mckenna R.N. 3 Clinical Report - Nurses [facility] Emergency Department [address] [place] [address] Phone #: ext- [phone] 11/23/2020 22:44 Patient: SHERRIE BYRNE Sex: M : 1985 Age: 35y Patient transported to [place] by wheelchair with interventional radiology technologist. --00:11/24/20 Sade Mckenna R.N. 23:00 11/23/20. 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 Richardson today who told him about results and was not sure; pt visited a friend here in [facility] then pain was too bad so came here). No recent travel. Similar symptoms previously. ( recently, in last 2 weeks, worse tonight). Recent medical care: The patient was seen recently by a health care provider. ( today at Dr. Richardson's office, surgeon in [place]).REVIEW OF SYSTEMSNo constipation, black stools, hematemesis, difficulty [...] Sulfa Antibiotics. 2 Clinical Report - Physicians/Mid [facility] Emergency Department [address] [place] [address] Phone #: [phone] flp- [phone] 11/23/2020 22:44 Patient: SHERRIE BYRNE Sex: M [...] No sensory deficit.LABS, X-RAYS, AND EKGAbdominal CT: [facility] Call: [phone] Online chat: [email or web address] Name: SHERRIE BYRNE (Age): 1985 35 Gender: MDate of Exam: 11/24/2020 [id number] Physician: NICOLASA ALBERTS # of Images: 565Ordered As: CT ABDOMEN/PELVIS WPROCEDURE INFORMATION:Exam: CT Abdomen And Pelvis With ContrastExam date and time: 11/24/2020 12:28 AMAge: 35 years oldClinical indication: Abdominal pain; Patient HX: Epigastric pain, known pancreatic mass MA on CTon 11/14 in at other facilityTECHNIQUE:Imaging protocol: Computed tomography of the abdomen and pelvis with contrast. 3 Clinical Report - Physicians/Mid Levels [facility] Emergency Department [address] [place] [address] Phone #: ext- [phone] 11/23/2020 22:44 Patient: [...] preliminary and final interpretation, please notify ad [email or web address] you do not have access to our QA portal, call our QA team at [phone] STATEMENTThis report is intended only for the use of the referring physician, and only in accordance with law, If youreceived this in error, call [phone] 2 of 2IMPRESSION:1. Dilated small bowel consistent [...] disease. 4 Clinical Report - Physicians/Mid Levels [facility] Department [address] [place] [address] Phone #: ext- [phone] 11/23/2020 22:44 Patient: SHERRIE BYRNE Sex: M : 1985 Age: 35y6. Left lower lobe pulmonary nodule. Follow-up as clinically indicated.Thank you for allowing us to participate in the care of your patient.Dictated and Authenticated by: Nikita Cardoza MD11/24/2020 1:44 AM Eastern Time ([facility]). Study type: abdomen and pelvis. Abdominal [...] 10.2) 5 Clinical Report - Physicians/Mid Levels [facility] Emergency Department [address] [place] [address] Phone #: ext- [phone] 11/23/2020 22:44 Patient: [...] Male GFR Interprentation 20-49 yrs >60 mL/min Eitjff05-83 yrs >56 mL/min Normal 60-69 yrs >49 mL/min Normal 70-79yrs>42 mL/min Normal 80 and above >35 mL/min Normal Female GFRInterpretation 20-39 yrs >60 mL/min Normal 40-49 yrs >58 mL/minNormal 50-59 yrs >51 mL/min Normal 60-69 yrs >45 mL/min Bpyniw58-92 yrs >39 mL/min Normal 80 and above >32 mL/min NormalLipase: (SILVERIO: 11/23/2020 22:55) ( [facility] 11/24/2020 00:08) Final results Test Result Flag Units (Reference) LIPASE 30 U/L (13 - 60)UA REFLEX TO UA CULTURE: (SILVERIO: 11/24/2020 01:05) ( [facility] 11/24/2020 01:26) Final results Test Result Flag [...] (NORMAL: NONELactic Acid: (SILVERIO: 11/23/2020 22:55) ( [facility] 11/23/2020 23:50) Final results Test Result Flag Units (Reference) LACTIC ACID 1.3 MMOL/L (0.2 - 2.2)CPK: (SILVERIO: 11/23/2020 22:55) ( [facility] 11/24/2020 00:09) Final results Test Result Flag Units (Reference) CPK 73 U/L (30 - 170)CRP: (SILVERIO: 11/23/2020 22:55) ( [facility] 11/24/2020 00:09) Final results Test Result Flag Units (Reference) CRP-HS 2.54 MG/L (1.00 - 3.00) CDC/S HS-CRP CUT-OFF: RELATIVE RISK: <1.0 mg/LLow 1.0 - 3.0 mg/L Average >3.0 mg/LHigh Optimally, the average of HS-CRP results repeated two weeks apart should be used for 6 Clinical Report - Physicians/Mid Levels [facility] Emergency Department [address] [place] [address] Phone #: ext- [phone] 11/23/2020 22:44 Patient: SHERRIE BYRNE Sex: M : 1985 Age: 35y risk assessment. Troponin-T: (SILVERIO: 11/23/2020 22:55) ( [facility] 11/24/2020 00:08) Final results Test Result Flag [...] end up anywhere since most hospitals in [facility] are full because of Covid and Vaccine mandate; pt prefers to sign out AMA and he will have his father drive him to [place] in the morning; pt is capable of deciding AMA; will wait for morphine to wear off before he leaves the premises; pt understands d/c instructions and urgency to get this evaluated since 1st s imilar CT was at [facility] on 11/24/20. Patient counseled in [...] QUICK 7 Clinical Report - Physicians/Mid Levels [facility] Emergency Department [address] [place] [address] Phone #: ext- [phone] 11/23/2020 22:44 Patient: [...] department as needed. Follow up with a uke driver and surgeon today.Reason for referral: evaluation and [...] know that I am welcome to [facility] time to receive the recommended care or any other care that I may need at any time,regardless of my ability to pay for such care. 8 Clinical Report - Physicians/Mid Levels [facility] Emergency Department [address] [place] [address] Phone #: ext- [phone] 11/23/2020 22:44 Patient: SHERRIE BYRNE Sex: M : 1985 Age: 35y(Electronically signed by Nicolasa Alberts M.D. 11/24/2020 03:35) Name Value Range Interpretation Code Description Data Ellen rce(s) Supporting Document(s) ID Date Data Source [id number] 11/24/2020 01:26:00 AM EDT [facility] Name Value Range Interpretation Code Description Data Ellen rce(s) Supporting Document(s) UA REFLEX TO UA CULTURE [facility] URINALYSIS SOURCE R [facility] al COLOR yellow NORMAL: Yellow [facility] CLARITY clear NORMAL: Clear [facility] spital Specific gravity of Urine by Test strip 1.005 1.001 - 1.030 [facility] pH 5 5 - 9 [facility] Gl[facility] [Mass/volume] in Urine by Test strip NORM NORMAL: Negat [facility] Bilirubin.total [Presence] in Urine by Test strip NEG NORMAL: Negative [facility] Ketones [Presence] in Urine by Test strip NEG NORMAL: Negative [facility] Protein [Mass/volume] in Urine by Test strip 15 NORMAL: Negat [facility] Nitrite [Presence] in Urine by Test strip NEG NORMAL: Negative [facility] BLOOD NEG NORMAL: Negative [facility] Leukocyte esterase [Presence] in Urine by Test strip NEG VLAD L: Negative [facility] Urobilinogen [Mass/volume] in Urine by Test strip NOR less joleen n 1.0 mg/dL [facility] MICROSCOPIC See Below [facility] ital WBC None Seen NORMAL: NONE SEEN [facility] Erythrocytes [#/volume] in Urine by Test strip 0 - 1 NORMAL: NON E SEEN [facility] EPITHELIAL FEW NORMAL: NONE SEEN [facility] ID Date Data Source [id number] 11/24/2020 12:09:00 AM EDT [facility] Name Value Range Interpretation Code Description Data Ellen rce(s) Supporting Document(s) C reactive protein [Mass/volume] in Serum or Plasma by High sensitivity method 2.54 MG/L 1.00 - 3.00 [facility] CDC/S HS-CRP CUT-OFF: RELATIVE RISK: <1.0 mg/L Low 1.0 - 3.0 mg/L Average >3.0 mg/L High Optimally, the average of HS-CRP results repeated two weeks apart should be used for risk assessment. ID Date Data Source [id number] 11/24/2020 12:08:00 AM EDT [facility] Name Value Range Interpretation Code Description Data Ellen rce(s) Supporting Document(s) Creatine kinase [Enzymatic activity/volume] in Serum or Plasma 7 3 U/L 30 - 170 [facility] ID Date Data Source [id number] 11/24/2020 12:08:00 AM EDT [facility] Name Value Range Interpretation Code Description Data Ellen rce(s) Supporting Document(s) Lipase [Enzymatic activity/volume] in Serum or Plasma 30 U/L 13 - 60 [facility] ID Date Data Source [id number] 11/24/2020 12:08:00 AM EDT [facility] Name Value Range Interpretation Code Description Data Ellen rce(s) Supporting Document(s) COMPREHENSIVE METABOLIC PANEL [facility] COMPREHENSIVE METABOLIC PANEL Sodium [Moles/volume] in Serum or Plasma 140 mEq/L 134 - 153 [facility] Potassium [Moles/volume] in Serum or Plasma 4.0 mEq/L 3.6 - 5.0 [facility] Chloride [Moles/volume] in Serum or Plasma 102 mEq/L 98 - 107 [facility] Carbon dioxide, total [Moles/volume] in Serum or Plasma 26 MEQ/L 22 - 30 [facility] Glucose [Mass/volume] in Serum or Plasma 109 MG/DL 70 - 99 H [facility] BUN 8 MG/DL 7 - 21 [facility] Creatinine [Mass/volume] in Serum or Plasma 0.9 MG/DL 0.7 - 1.5 [facility] BUN/CREAT 9 8 - 27 [facility] al Protein [Mass/volume] in Serum or Plasma 7.2 G/DL 6.3 - 8.2 [facility] Albumin [Mass/volume] in Serum or Plasma 5.2 G/DL 3.9 - 5.0 H [facility] Globulin [Mass/volume] in Serum by calculation 2.0 GM/DL 2.4 - 3.2 L [facility] A/G RATIO 2.6 0.8 - 2.0 H [facility] al Calcium [Mass/volume] in Serum or Plasma 9.6 MG/DL 8.4 - 10.2 [facility] Bilirubin.total [Mass/volume] in Serum or Plasma 1.5 MG/DL 0.2 - 1.3 H [facility] Alkaline phosphatase [Enzymatic activity/volume] in Serum or Plasma 89 U/L 38 - 126 [facility] Aspartate aminotransferase [Enzymatic activity/volume] in Serum or Plasma 13 U/L 5 - 40 [facility] Alanine aminotransferase [Enzymatic activity/volume] in Seru m or Plasma 13 U/L 7 - 56 [facility] Anion gap 3 in Serum or Plasma 12.0 mmol/L 8.0 - 16.0 [facility] AGE 35 yrs [facility] NON-AA GFR >60 mL/min [facility] ital AFR AMER GFR >60 mL/min [facility] Ho spital Male GFR In terprentation 20-49 [...] >32 mL/min Normal ID Date Data Source [id number] 11/24/2020 12:08:00 AM EDT [facility] Name Value Range Interpretation Code Description Data Ellen rce(s) Supporting Document(s) TROPONIN T <0.01 NG/ML 0.00 - 0.10 [facility] o[facility]ital TROPONIN T0.1 ng/ml Recommended as the c linical threshold value forTroponin T. ID Date Data Source [id number] 11/23/2020 11:50:00 PM EDT [facility] Name Value Range Interpretation Code Description Data Ellen rce(s) Supporting Document(s) CBC W/AUTOMATED DIFF [facility] COMPLETE BLOOD COUNT Leukocytes [#/volume] in Blood by Automated count 8.6 10^3/uL 4.2 - 1 1.0 [facility] Erythrocytes [#/volume] in Blood by Automated count 5.07 10^6/uL 4. 50 - 6.30 [facility] Hemoglobin [Mass/volume] in Blood 15.3 g/dL 14.0 - 16.0 [facility] Hematocrit [Volume Fraction] of Blood by Automated count 45.3 % 4 1.0 - 51.0 [facility] Erythrocyte mean corpuscular volume [Entitic volume] by Auto mated count 89.3 fL 80.0 - 94.0 [facility] Erythrocyte mean corpuscular hemoglobin [Entitic mass] by Automated count 30.2 pg 27.0 - 34.0 [facility] Erythrocyte mean corpuscular hemoglobin concentration [Mass/volume] by Automated count 33.8 g/dL 31.0 - 36.0 [facility] Erythrocyte distribution width [Ratio] by Automated count 12.3 % 11.5 - 14.8 [facility] Platelets [#/volume] in Blood by Automated count 317 10^3/uL 150 - 45 0 [facility] Platelet mean volume [Entitic volume] in Blood by Automated count 8.9 fL 7.4 - 10.4 [facility] Neutrophils/100 leukocytes in Blood by Automated count 70.1 % 37. 0 - 80.0 [facility] Lymphocytes/100 leukocytes in Blood by Manual count 19.8 % 25.0 - 40.0 L [facility] Monocytes/100 leukocytes in Blood by Automated count 6.0 % 3.0 - 8.0 [facility] Eosinophils/100 leukocytes in Blood by Automated count 3.5 % 0.0 - 7.0 [facility] Basophils/100 leukocytes in Blood by Automated count 0.3 % 0.0 - 2.0 [facility] %IG 0.3 % 0.0 - 0.0 H [facility] al %NRBC 0.0 % 0.0 - 0.0 [facility] Neutrophils [#/volume] in Blood by Automated count 6.03 10^3/uL 2.00 - 6.90 [facility] Lymphocytes [#/volume] in Blood by Automated count 1.71 10^3/uL 0.60 - 3.40 [facility] Monocytes [#/volume] in Blood by Automated count 0.52 10^3/uL 0.00 - 0.90 [facility] Eosinophils [#/volume] in Blood by Automated count 0.30 10^3/uL 0.00 - 0.70 [facility] Basophils [#/volume] in Blood by Automated count 0.03 10^3/uL 0.00 - 0.20 [facility] #IG 0.03 10^3/uL 0.00 - 0.10 [facility] #NRBC 0.00 10^3/uL 0.00 - 0.00 [facility] MANUAL DIFF NOT INDICATED [facility] RBC MORPH NOT INDICATED [facility] ID Date Data Source [id number] 11/23/2020 11:50:00 PM EDT [facility] Name Value Range Interpretation Code Description Data Ellen rce(s) Supporting Document(s) Lactate [Moles/volume] in Serum or Plasma 1.3 MMOL/L 0.2 - 2.2 [facility] Procedure Social History No Information Vital Signs ID Date Data Source UNK Name Value Range Interpretation Code Description Data Source(s) Body height 70 [in_i] 70 [in_i] [facility]) 5'10" Systolic blood pressure 124 mm[Hg] 124 [facility] Diastolic blood pressure 82 mm[Hg] 82 mm[Hg] [facility] ([facility]) Body temperature 98.2 [degF] 98.2 [degF] [facility] ([facility]) Body weight 189.38 [lb_av] 189.38 [lb_av] [facility] Body mass index (BMI) [Ratio] 27.2 kg/m2 27.2 k g/m2 [facility]) [place] body weight 166 [lb_av] 166 [lb_av] [facility] Body weight 85.900 kg 85.900 kg [facility] ([facility]) Body surface area Derived from formula 2.04 m2 2.04 m2 [facility] ([facility]) Body mass index (BMI) [Ratio] 26.7 kg/m2 26.7 k g/m2 [facility] ([facility]) Body temperature 97.5 [degF] 97.5 [degF] [facility] ([facility]) Body height 72.25 [in_i] 72.25 [in_i] [facility] ([facility]) 6'0.25" Body weight 198.50 [lb_av] 198.50 [lb_av] [place] T ([facility]) ID Date Data Source [id number] 12/15/2020 01:51:21 PM EDT [facility] Name Value Range Interpretation Code Description Data Source(s) WEIGHT RECORDED 185 lb 185 lb [facility] Body height Measured 71 in 71 in [facility]
[2020-12-16] MEDS: MORPHINE 4 MG/ML 1ML VIAL/SYRINGE (J2270) IV PRN (00:31)
[2020-12-16] MEDS ORDERED: METO10TA2 PO (00:38)
[2020-12-16] MEDS ORDERED: SENN8.6T28 PO (00:38)
[2020-12-16] MEDS ORDERED: MORP15TA2 PO (00:38)
[2020-12-16] MEDS ORDERED: HOME MED LIST COMPLETE! XX SCH (00:40)
[2020-12-16] MEDS ORDERED: MORPHINE 4 MG/ML 1ML VIAL/SYRINGE (J2270) IV PRN (00:50)
[2020-12-16] MEDS ORDERED: ONDANSETRON 4MG/2ML VIAL IV PRN ×2 (00:50→09:05)
[2020-12-16] MEDS: HYDROMORPHONE HCL 0.5 MG/ 0.5 ML SYRINGE (J1170 PER 1) IV PRN ×2 (02:25→07:12)
[2020-12-16] MEDS ORDERED: NS 1,000 ML IV SCH (03:05)
[2020-12-16] MEDS ORDERED: PROMETHAZINE INJ 25 MG/ML VIAL (J2550) IV ONE (05:20)
[2020-12-16 06:00] VITALS: BP 134/89
[2020-12-16] MEDS ORDERED: HEPARIN SOD (PORCINE) 5000UNITS/ML 1ML VIAL/SYRINGE SC SCH (06:00)
[2020-12-16 06:36] LABS: HEMATOCRIT 45.2 % (42.0-52.0); HEMOGLOBIN 14.8 g/dl (13.5-17.5); MEAN CORPUSCULAR HEMOGLOBIN 29.4 pg (27.0-33.0); MEAN CORPUSCULAR HGB CONC 32.7 g/dl (32.0-36.5); MEAN CORPUSCULAR VOLUME 89.7 fl (80.0-96.0); PLATELET COUNT, AUTOMATED 272 10^3/uL (150-450); RED BLOOD COUNT 5.04 10^6/uL (4.30-6.10)
[2020-12-16 07:07] LABS: ALBUMIN 3.4 GM/DL (3.2-5.2); ALT/SGPT 59 U/L (12-78); BILIRUBIN,TOTAL 1.5 MG/DL (0.2-1.0); BLOOD UREA NITROGEN 17 MG/DL (7-18); CALCIUM LEVEL 9.1 MG/DL (8.5-10.1); CARBON DIOXIDE LEVEL 29 MEQ/L (21-32); CHLORIDE LEVEL 101 MEQ/L (98-107); GLOMERULAR FILTRATION RATE > 60.0 (>60); GLUCOSE, FASTING 111 MG/DL (70-100); SODIUM LEVEL 138 MEQ/L (136-145); TOTAL PROTEIN 6.7 GM/DL (6.4-8.2)
[2020-12-16] MEDS ORDERED: SCOPOLAMINE 1MG TRANSDERMAL PATCH TOP PRN ×2 (09:05)
[2020-12-16] MEDS ORDERED: MORPHINE 10MG/0.5ML ORAL CONCENTRATE SOLUTION U/D SL PRN ×2 (09:05)
[2020-12-16] MEDS ORDERED: ACETAMINOPHEN 650 MG SUPP PR PRN ×2 (09:05)
[2020-12-16] MEDS ORDERED: LORazepam 1 MG TAB PO PRN (09:05)
[2020-12-16] MEDS ORDERED: ONDANSETRON 4 MG ORAL DISINTEGRATING TAB PO PRN ×2 (09:05)
[2020-12-16] MEDS ORDERED: ACETAMINOPHEN TAB 650MG DOSE (2X325MG) PO PRN ×2 (09:05)
[2020-12-16] MEDS ORDERED: LORazepam 2 MG/ML VIAL IV PRN ×2 (09:05)
[2020-12-16] MEDS ORDERED: ATROPINE SULFATE 1% OP SOLN 2 ML BTL SL PRN ×2 (09:05)
[2020-12-16] MEDS ORDERED: MORPHINE 2 MG/ML 1ML VIAL (J2270) IV PRN ×3 (09:05→11:05)
[2020-12-16] MEDS ORDERED: BISACODYL 10 MG SUPP PR PRN ×2 (09:05)
[2020-12-16] MEDS ORDERED: FLEET ENEMA PR PRN ×2 (09:05)
[2020-12-16] MEDS ORDERED: HYOSCYAMINE SULFATE 0.125 MG SUBL TABLET PO PRN ×2 (09:05)
--- NOTE | 2020-12-16 09:39 | REP ---
INDICATION: abdominal pain; r/o obstruction. COMPARISON: 11/06/2020. TECHNIQUE: Supine and erect views of the abdomen. Three total views. FINDINGS: There is no evidence of free intraperitoneal air. Multiple moderately dilated small bowel loops are seen in the abdomen with air-fluid levels on the upright view compatible with small bowel obstruction. There is mild air scattered throughout the colon. No abnormal calcifications are seen. IMPRESSION: Findings compatible with small bowel obstruction. A preliminary report was provided by virtual Radiology at the time of the exam. <Electronically signed by Aris Johnson > 12/16/20 0936
[2020-12-16] MEDS: HYDROmorphone 4MG TABLET PO PRN ×2 (11:00→15:42)
[2020-12-16] MEDS: ONDANSETRON 4MG/2ML VIAL IV PRN ×2 (11:01→21:52)
--- NOTE | 2020-12-16 13:36 | ECGEPIP ---
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
--- NOTE | 2020-12-16 13:45 | CR.PDOC ---
General Date of Consultation: Dec 16, 2020 Attending Physician: ZULY MEJIA MD Consultation General surgery. Dr. Mejia HISTORY OF PRESENT ILLNESS: The patient is a 35-year-old male with metastatic pancreatic cancer recently admitted with partial bowel obstruction felt to be possibly chronic related to mesenteric involvement and abdominal mass effect. The patient was readmitted 12/15/2020 with intractable abdominal pain and partial SBO. Surgery was consulted. The patient has had 2 episodes of emesis this morning and reports persistent pain. ALLERGIES: Please see below. HOME MEDICATIONS: Please see below. Past medical surgery/past surgical history Metastatic pancreatic cancer Appendectomy FAMILY HISTORY: Noncontributory SOCIAL HISTORY: Non-smoker REVIEW OF SYSTEMS: As noted in HPI otherwise 10 point review systems unremarkable PHYSICAL EXAMINATION: VITAL SIGNS: Please see below. GENERAL APPEARANCE: Appears chronically ill and cachectic HEENT: Dry appearing mucous membranes. RESPIRATORY: No wheezing CARDIOVASCULAR: S1-S2 regular rate rhythm ABDOMEN: Distended, diffuse tenderness most prominent in the left upper and left lower quadrants guarding and grimacing noted. EXTREMITIES: No edema LABORATORY DATA: Please see below. ASSESSMENT/PLAN: Uncontrolled abdominal pain secondary to metastatic pancreatic cancer, partial SBO possibly chronic related to mesenteric involvement and abdominal mass effect. The patient is reviewed with Dr. Mejia. The patient has had 2 episodes of emesis this morning and reports persistent abdominal pain and distention. Continue n.p.o. IVF as per hospitalist. Discussed with the patient would recommend NG tube, the patient states he does not want an NG tube placed and states he will refuse. Subsequently, the patient has opted for comfort measures only. Hospice consult placed. Reconsult general surgery if needed Vital Signs/I&O Vital Signs Date Time Temp Pulse Resp B/P (MAP) Pulse Ox O2 Delivery O2 Flow Rate FiO2 12/16/20 11:00 16 12/16/20 06:00 97.6 105 134/89 (104) 97 Room Air 12/16/20 01:33 2.0 I&O- Last 24 Hours up to 6 AM 12/16/20 06:00 Intake Total 1250 ml Output Total 475 ml Balance 775 ml Laboratory Data Labs 24H Laboratory Tests 2 12/15/20 18:59: Immature Granulocyte % (Auto) 0.5, Neutrophils (%) (Auto) 51.4, Lymphocytes (%) (Auto) 32.0, Monocytes (%) (Auto) 14.1H, Eosinophils (%) (Auto) 1.5, Basophils (%) (Auto) 0.5, Neutrophils # (Auto) 1.1L, Lymphocytes # (Auto) 0.7L, Monocytes # (Auto) 0.3, Eosinophils # (Auto) 0.0, Basophils # (Auto) 0.0, Nucleated Red Blood Cells % (auto) 0.0, Total Bilirubin 1.4H, Direct Bilirubin 0.5H, Aspartate Amino Transf (AST/SGOT) 32, Alanine Aminotransferase (ALT/SGPT) 68, Alkaline Phosphatase 92, Total Protein 7.3, Albumin 3.8, Albumin/Globulin Ratio 1.1, Lipase 463H 12/15/20 19:14: POC Glucose (Misc Panel) 102, POC Sodium (Misc Panel) 137, POC Potassium (Misc Panel) 3.7, POC Chloride (Misc Panel) 96L, POC Total CO2 (Misc Panel) 31.0H, POC Blood Urea Nitrogen (Misc Panel 16, POC Ionized Calcium (Misc Panel) 4.7, POC Creatinine (Misc Panel) 1.0, POC Hematocrit (Misc Panel) 49.0 12/15/20 21:00: Coronavirus (COVID-19)(PCR) NEGATIVE, Influenza Type A (RT-PCR) NEGATIVE, Influenza Type B (RT-PCR) NEGATIVE, Respiratory Syncytial Virus (PCR) NEGATIVE 12/16/20 06:24: Nucleated Red Blood Cells % (auto) 0.0, Total Bilirubin 1.5H, Aspartate Amino Transf (AST/SGOT) 22, Alanine Aminotransferase (ALT/SGPT) 59, Alkaline Phosphatase 88, Total Protein 6.7, Albumin 3.4, Albumin/Globulin Ratio 1.0, Anion Gap 8, Glomerular Filtration Rate > 60.0, Calcium Level 9.1 CBC/BMP Laboratory Tests 12/15/20 18:59 12/16/20 06:24 Allergies Coded Allergies: Sulfa (Sulfonamide Antibiotics) (Verified Allergy, Unknown, unknown, 02/02/20) Home Medications Scheduled Metoclopramide HCl (Metoclopramide HCl) 10 Mg Tablet, 10 MG PO ACHS, (Reported) Morphine Sulfate (Morphine Sulfate) 15 Mg Tablet, 15 MG PO TID, (Reported) Sennosides (Senna) 8.6 Mg Tablet, 1 TAB PO TID, (Reported) Scheduled PRN Ondansetron HCl (Ondansetron HCl) 8 Mg Tablet, 8 MG PO Q8H PRN for NAUSEA OR VOMITING, (Reported) Attending Note Attending Note Patient is known to me from prior admission last week also for the same reason. Patient with chronic persistent pain secondary to omental/mesenteric metastasis of unknown distal pancreatic malignancy. He also has underlying chronic partial obstruction which gets exacerbated at times. He has been and readmitted overnight. Prior to me seeing him, I have recommended putting an nasogastric tube on him. We have discussed surgical options including bypass, possible ostomy. Patient adamant he does not want an ostomy. He has been refusing the nasogastric tube. Upon discussing his options with his primary care team, he has decided to forego active measures at this point. I discussed this with Dr. Henderson who made a discussion with the patient and Dr. Martinez from medical oncology who thinks he has at best 2 to 3 months to live with his cancer burden. I support the patient's decision. We will sign off. Annette Joe Dec 16, 2020 13:45 ZULY MEJIA MD Dec 17, 2020 09:01
[2020-12-16 14:00] VITALS: BP 141/90
--- NOTE | 2020-12-16 14:21 | IPNPDOC ---
Text Note Date of Service The patient was seen on 12/16/20. NOTE Subjective: I discussed with patient his life expectancy and goal of treatment, also I discussed with Dr. Gerber patient's prognosis. After discussion patient decided to be comfort measures only. He continues to complain of abdominal pain and nausea. He had multiple episodes of vomiting. Objective: GENERAL APPEARANCE: In mild distress HEENT: no scleral icterus, no JVD, EOMI CARDIOVASCULAR: S1S2 LUNGS: Diminished lung sounds bilaterally ABDOMEN: soft & diffusely tender w palpation MUSCULOSKELETAL: no cyanosis, no swelling INTEGUMENT: no generalized pallor NEUROLOGICAL: cranial nerve function from 2-12 intact, follows commands, speech not dysarthric Assessment and plan 35-year-old male with a recent diagnosis of metastatic pancreatic cancer presents with uncontrolled abdominal pain, poor oral intake, suspected partial small bowel obstruction. Patient decided to be comfort measures only. GLOBAL LOGISTICS ANALYST protocol initiated. Hospice consult placed # Uncontrolled abdominal pain metastatic pancreatic cancer Partial SBO Nausea/vomiting Cachexia Secondary to pancreatic cancer Patient has muscle wasting, temporal wasting VS,Fishbone, I+O VS, Fishbone, I+O Laboratory Tests 12/15/20 18:59 12/16/20 06:24 Vital Signs Date Time Temp Pulse Resp B/P (MAP) Pulse Ox O2 Delivery O2 Flow Rate FiO2 12/16/20 11:00 16 12/16/20 06:00 97.6 105 134/89 (104) 97 Room Air 12/16/20 01:33 2.0 I&O- Last 24 Hours up to 6 AM 12/16/20 06:00 Intake Total 1250 ml Output Total 475 ml Balance 775 ml MARLA BEAN DO Dec 16, 2020 14:21
[2020-12-16] MEDS ORDERED: dexameTHASONE 20MG/5ML VIAL (J1100 PER 1MG) IV ONE (15:55)
[2020-12-16] MEDS: MORPHINE 2 MG/ML 1ML VIAL (J2270) IV SCH ×2 (16:26→21:51)
--- NOTE | 2020-12-16 17:29 | CR.PDOC ---
Subjective Subjective General: Reports: ROS Unobtainable, Malaise, Normal Appetite, Other Symptoms; Denies: Chills, Night Sweats, Fatigue Constitutional: Reports: Chills, Fever, Malaise, Night Sweats, Weakness, Fatigue, Weight Loss, Lethargy (See HPI, otherwise 10 pt ROS negative.), Other Objective Physical Examination General Exam: Positive: Alert, Cooperative, No Acute Distress, Mild Distress, Moderate Distress, Severe Distress, Other Chest Exam: Positive: Clear to auscultation, Normal air movement Heart Exam: Positive: Tachycardic, Regular Rhythm Abdomen Exam: Positive: BS Hypoactive, Tenderness Extremity Exam: Positive: Normal pulses; Negative: Clubbing, Cyanosis, Edema, Tenderness, Swelling, Other Neuro Exam: Positive: Normal Gait, Normal Speech, Strength at 5/5 X4 ext, Normal Tone, Sensation Intact, Cranial Nerves 3-12 NL, Reflexes 2+, Other Psych Exam: Positive: Mental status NL, Mood NL, Anxiety, Memory Intact, Oriented x 3, Other DREA BERRIOS Dec 16, 2020 16:18
[2020-12-16] MEDS: OCTREOTIDE ACETATE 1,200 MCG in NS 238.8 ML IV SCH (18:44)
--- NOTE | 2020-12-16 20:43 | CR.PDOC ---
General Date of Consultation: Dec 16, 2020 Attending Physician: MARLA BEAN DO Consultation REASON FOR CONSULTATION/CHIEF COMPLAINT: Mr. Byrne is a 35 year old referred to palliative care for new dx of stage IV pancreatice cancer for support, and pain and symptom management. HISTORY OF PRESENT ILLNESS: Mr Byrne developed weight loss and abdominal butts recently, presented to [facility] and was dx with stage IV pancreatic cancer. He received one dose of FOLFOXFIRI and did not tolerate this well. He was admitted to [facility] shortly after d/c from [facility] and saw Dr. Martinez. He was seen by this provider during that stay and was to follow up with palliative care clinic and wished to transfer care to Dr Martinez. He was d/c 12/11 from [facility]. I had a tele medicine visit by phone with him 12/15/20. He had not started reglan as prescribed at d/c. He had severe abdominal pain and N/V. He had not had a BM since d/c 12/11. Last dose of senna was the day before, 2 tabs at HS. He was not able to take much food or fluids. I recommended starting dexamethasone 4 mg BID PO and reglan as previosuly prescribed at d/. My concern was for recurrent SBO. His mother was also present for this visit. Her concern was dehydration. I also recommended Compazine suppositories for nausea, fleets enema for constipation. I asked them to call with any further concerns and changed our clinic appointment to the next day. Also they were to see Dr. Martinez in the oncology clinic. Pt then presented to ED at [facility] last night and was admitted for SBO. He was seen by Dr Martinez this am. Pt had decided and this concurred by Dr. Martinez that he wished to pursue comfort care only with no further disease directed therapy. Dr. Martinez an d I discussed the pt today and he agreed that placement of venting gastrostomy be pursued for EOL symptom management. I discussed this with Dr Bean as well. When I saw the patient this afternoon at 1330 he had pain 10/10, and severe nausea. No recent emesis. He denied SOB, CP. No BM but passing gas. Pain was camping and sharp. He was sad and distressed about terminal condition. other meek 10 pt ROS was negative. PAST MEDICAL HISTORY: Benign PAST SURGICAL HISTORY: Appendectomy age 10 FAMILY HISTORY: Non-contributary SOCIAL HISTORY: Marital status and/or living arrangements: Single, lives alone, no children. Now living with parents. 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 FUNCTIONAL STATUS: Current ECO: 4 due to high symptom burden. INFORMATION SHARING AND DECISION MAKING: Wishes full medical information and sharing all with his family. SPIRITUALITY: Nonreligious but believes in [place]. ASSESSMENT/PLAN: Advanced Care Planning: Made himself DNR/DNI today. Wishes his mother and father to be his healthcare surrogates. Needs to complete this paper work. Symptom Management: SBO: Recommend octreotide, 0.2-0.9 mg/day by continuous IV infusion to decrease GI secretions; dexamethasone 10 mg x 1 then 4 mg IV q 6 hr to decrease inflammation. Do not recommend reglan due to pt cramping pain. Consider haldol if needed as antiemetic. Surgical consult for possible venting gastrostomy. Pain: increase MSIR from 4 mg IV to 5 MG IV q 4 hours , scheduled. Continue hydromorphone prn for BT pain. N/V: As for SBO and consider adding prochlorperazine 15 mg suppository q 6 hr prn. Zofran and Phenergan minimally helpful at present. Goals of Care: Home with hospice once symptoms better controlled per patient and family. May need 24-48+ hours for this. Discussed with pt, mother and father this evening. Pertinent Diagnoses: Stage IV pancreatic cancer, no further disease directed therapy. SBO. N/V. Severe abdominal pain. Need for family and pt support for EOL care and decision making. Recommend PC continuing involvement for support through hospital d/c. Vital Signs/I&O Vital Signs Date Time Temp Pulse Resp B/P (MAP) Pulse Ox O2 Delivery O2 Flow Rate FiO2 12/16/20 14:00 96.8 89 17 141/90 (107) 95 Room Air 12/16/20 01:33 2.0 I&O- Last 24 Hours up to 6 AM 12/16/20 06:00 Intake Total 1250 ml Output Total 475 ml Balance 775 ml Laboratory Data Labs 24H Laboratory Tests 2 12/15/20 21:00: Coronavirus (COVID-19)(PCR) NEGATIVE, Influenza Type A (RT-PCR) NEGATIVE, Influenza Type B (RT-PCR) NEGATIVE, Respiratory Syncytial Virus (PCR) NEGATIVE 12/16/20 06:24: Nucleated Red Blood Cells % (auto) 0.0, Anion Gap 8, Glomerular Filtration Rate > 60.0, Calcium Level 9.1, Total Bilirubin 1.5H, Aspartate Amino Transf (AST/SGOT) 22, Alanine Aminotransferase (ALT/SGPT) 59, Alkaline Phosphatase 88, Total Protein 6.7, Albumin 3.4, Albumin/Globulin Ratio 1.0 CBC/BMP Laboratory Tests 12/16/20 06:24 Home Medications Scheduled Metoclopramide HCl (Metoclopramide HCl), 10 MG PO ACHS, (Reported) Morphine Sulfate (Morphine Sulfate), 15 MG PO TID, (Reported) Sennosides (Senna), 1 TAB PO TID, (Reported) Scheduled PRN Ondansetron HCl (Ondansetron HCl), 8 MG PO Q8H PRN for NAUSEA OR VOMITING, (Reported) Discontinued Medications Gabapentin (Neurontin), 100 MG PO TID PRN for NEUROPATHIC PAIN, (Reported) Discontinued Reason: Pt states not taking Metoclopramide HCl (Metoclopramide HCl), 10 MG PO ACHS Discontinued Reason: Re-entering as new Morphine Sulfate (Morphine Sulfate), 15 MG PO Q6H PRN for SEVERE PAIN (PS 8-10), (Reported) Morphine Sulfate (Morphine Sulfate), 15 MG PO TID Discontinued Reason: Re-entering as new Polyethylene Glycol 3350 (Miralax), 17 GM PO DAILY PRN for CONSTIPATION, (Reported) Discontinued Reason: Pt states not taking Prochlorperazine Maleate (Prochlorperazine Maleate), 10 MG PO Q6H PRN for NAUSEA OR VOMITING, (Reported) Sennosides (Senna), 2 TAB PO DAILY PRN for CONSTIPATION, (Reported) Discontinued Reason: Pt states not taking Tizanidine HCl (Tizanidine HCl), 4 MG PO Q6H PRN for MUSCLE SPASMS, (Reported) Discontinued Reason: Pt states not taking Allergies Coded Allergies: Sulfa (Sulfonamide Antibiotics) (Verified Allergy, Unknown, unknown, 12/6/20) Subjective Subjective General: Reports: Fatigue, Malaise Constitutional: Reports: Chills, Fever, Malaise, Night Sweats, Weakness, Fatigue, Weight Loss, Lethargy, Other Pulmonary: Denies: Dyspnea, Cough, Pleuritic Chest Pain, Other Symptoms Cardiovascular: Denies: Chest Pain, Palpitations, Orthopnea, Paroxysmal Noc. Dyspnea, Edema, Lt Headedness, Other Symptoms Gastrointestinal: Reports: Nausea, Vomiting, Abdominal Pain, Diarrhea, Constipation, Melena, Hematochezia, Other Symptoms Genitourinary: Denies: Dysuria, Frequency, Incontinence, Hematuria, Retention, Other Symptoms Hematologic: Denies: Bruising, Bleeding Excessively, Petecchia, Purpura, Enlarged Lymph Nodes, Other Hematologic Musculoskeletal: Denies: Neck Pain, Back Pain, Shoulder Pain, Arm Pain, Hand Pain, Leg Pain, Foot Pain, Joint Pain, Muscle Pain, Spasms, Other Symptoms Neurological: Denies: Weakness, Numbness, Incoordination, Change in speech, Confusion, Seizures, Other Symptoms Psych: Reports: Mood Normal, Anxiety, Depression (See HPI. otherwise 10 pt ROS negative.), Memory Issues, Thoughts of Self Harm, Anger, Thoughts of Harming Other, Other Psych Objective Physical Examination General Exam: Positive: Cooperative, Moderate Distress ENT Exam: Positive: Atraumatic, Mucous membr. moist/pink, Pharynx Normal, Tongue Midline, Pharyngeal Edema, Nares Patent, Tympanic Membranes Normal, Ext Auditory Canal Nml, Pinna Normal, Other ENT Neck Exam: Positive: Supple Chest Exam: Positive: Clear to auscultation, Normal air movement, Rales, Rhonchi, Wheezing, Diminished, Other Heart Exam: Positive: Tachycardic, Regular Rhythm, Normal S1, Normal S2 Abdomen Exam: Positive: Normal bowel sounds, BS Hyperactive, BS Hypoactive, Soft, Tenderness, Hepatospenomegaly, Mass, Hernia, Other Extremity Exam: Positive: Cyanosis; Negative: Clubbing, Edema, Normal pulses, Tenderness, Swelling, Other Neuro Exam: Positive: Cranial Nerves 3-12 NL Psych Exam: Positive: Mental status NL, Mood NL, Anxiety, Memory Intact, [place] ed x 3, Other DREA BERRIOS Dec 16, 2020 20:33
[2020-12-16] MEDS: dexameTHASONE 20MG/5ML VIAL (J1100 PER 1MG) IV SCH (21:50)
[2020-12-17] MEDS: dexameTHASONE 20MG/5ML VIAL (J1100 PER 1MG) IV SCH ×4 (02:14→20:25)
[2020-12-17] MEDS: PROMETHAZINE INJ 25 MG/ML VIAL (J2550) IV PRN ×2 (02:15→11:15)
[2020-12-17] MEDS: MORPHINE 2 MG/ML 1ML VIAL (J2270) IV SCH ×6 (02:16→20:26)
[2020-12-17] MEDS: ONDANSETRON 4MG/2ML VIAL IV PRN ×3 (06:52→20:26)
[2020-12-17] MEDS: HYDROmorphone 4MG TABLET PO PRN (11:16)
[2020-12-17] MEDS ORDERED: PROCHLORPERAZINE 5 MG TAB (S0183) PO PRN (12:15)
[2020-12-17] MEDS ORDERED: GLYCERIN ADULT SUPP PR ONE (15:00)
--- NOTE | 2020-12-17 16:07 | IPNPDOC ---
Date Seen This is a Palliative Care Progress Note. The patient was seen on 12/17/20 at 1215 Progress Note SUBJECTIVE: Patient is a 35-year-old man with stage IV pancreatici cancer with extensive peritoneal and mesenteric carcinomatosis,liver metastasis, SBO, abdominal pain, constipation and severe N/V. Pt reports he is feeling better today. No emesis since yesterday evening. Nausea continues but is improved. Pain has also improved. Best pain severity in last 24 hrs 3/10, worst, 9/10, average 5/10. He is having less severe cramping pain, but it is still continuous pain. He has walked around his room once. He has not had a BM but has been passing some gas. He has taken small amount of juices and water, no solid foods yet. He denies SOB/CP. His sleep is interrupted. He was sleeping when I entered the room but easily aroused. OBJECTIVE PHYSICAL EXAMINATION: VITAL SIGNS: Please see below. GENERAL: NAD, alert and oriented, pleasnat and cooperative HEENT: NC/AT, EOEMI, no scleral icterus, poor dentition, no oral lesions. CARDIOVASCULAR: RRR, No murmurs appreciated, S1, S2. RESPIRATORY: CTA, no adventitious sounds. ABDOMINAL: Firm and distended, diffusely tender, no fluid wave, BS hypoactive. EXTREMITIES: No c/c/e NEUROLOGICAL: Anabella, no focal deficits PSYCHOLOGICAL: Appropriate mood and affect LABORATORY DATA, IMAGING STUDIES, MICROBIOLOGY: Please see below. ASSESSMENT AND PLAN: This is a 35-year-old man with extensive carcinomatosis r/t stage IV pancreatic cancer and high symptom burden. PROBLEMS: 1. Bowel obstruction: continue octreotide continuous infusion another 24 hours, continue dexamethasone 6 mg IV q 6 hours. Transition to oral dexamethasone 4 mg once daily after 2 IV doses tomorrow. Give octreotide (depot) IM, 30 mg x 1 after d/c of infusion. Consider starting metoclopramide PO QID if pt is passing gas or has stooled. 2. Nausea with vomiting: Continue zofran and phenergan. Transition to oral zofran disintegrating tabs 8 mg q 6 hr scheduled tomorrow. 3. Constipation: Pt is passing gas. No BM since 12/11. Recommend glycerine suppository x 1 followed by BARAK and rectal disimpaction of needed. Follow this with Dulcolax suppository or fleets enema, per pt choice. Goal is BM prior to d/c. 4. Cancer related pain: Continue scheduled IV morphine at 5 mg q 4 hr with hydromorphone for BT pain prn. If pain continues to be managed, transition to oral morphine, MSER at 60 mg q 12 hours and MSIR, 15 mg q 3 hr prn BT pain. Evaluate for effectiveness. 5. Stage IV pancreatic cancer: DIRECTOR RISK with plan to discharge to Hospice. He will go to his parents home and receive home hospice there. His parents will be his CGs. Recommend they meet with PT for instructions in transfers and positioning as pt may decline rapidly. Prognosis is days to weeks. DISPOSITION: Recommend d/c home on Monday, when hospice can admit pt and equipment has been delivered. This will give time to evaluate effectiveness of multiple medication changes from IV to oral medications. Thank you for the opportunity to participate in this pt's care. Discussed pt with Dr. Henderson. VS, I&O, 24H, Fishbone Vital Signs/I&O Vital Signs Date Time Temp Pulse Resp B/P (MAP) Pulse Ox O2 Delivery O2 Flow Rate FiO2 12/17/20 13:46 14 12/16/20 21:51 Room Air 12/16/20 14:00 96.8 89 141/90 (107) 95 12/16/20 01:33 2.0 I&O- Last 24 Hours up to 6 AM 12/17/20 06:00 Intake Total 2020 ml Output Total 1500 ml Balance 520 ml DREA BERRIOS Dec 17, 2020 14:25
[2020-12-17] MEDS: OCTREOTIDE ACETATE 1,200 MCG in NS 238.8 ML IV SCH (17:10)
[2020-12-18] MEDS: dexameTHASONE 20MG/5ML VIAL (J1100 PER 1MG) IV SCH ×3 (01:41→14:00)
[2020-12-18] MEDS: MORPHINE 2 MG/ML 1ML VIAL (J2270) IV SCH ×3 (01:44→09:49)
[2020-12-18] MEDS: ONDANSETRON 4MG/2ML VIAL IV PRN (05:24)
[2020-12-18] MEDS: BISACODYL 10 MG SUPP PR SCH (09:00)
[2020-12-18] MEDS: PROMETHAZINE INJ 25 MG/ML VIAL (J2550) IV PRN (09:48)
[2020-12-18] MEDS ORDERED: ISOVUE-370 76% 100ML VIAL As Ordered ONE (11:24)
[2020-12-18] MEDS ORDERED: GLYCERIN ADULT SUPP PR PRN (11:25)
[2020-12-18] MEDS ORDERED: MORPHINE 30 MG TAB **MSIR PO PRN (11:25)
[2020-12-18] MEDS ORDERED: MORPHINE 2 MG/ML 1ML VIAL (J2270) IV PRN (12:10)
[2020-12-18] MEDS ORDERED: MORPHINE 10 MG/ML 1ML VIAL (J2270) IV PRN (12:11)
[2020-12-18] MEDS: LORazepam 1 MG TAB PO PRN (12:58)
[2020-12-18] MEDS: ONDANSETRON 4 MG TAB PO SCH ×3 (12:59→22:47)
[2020-12-18] MEDS: MORPHINE 30 MG SA TAB PO SCH ×2 (12:59→22:47)
[2020-12-18] MEDS: OCTREOTIDE ACETATE 1,200 MCG in NS 238.8 ML IV SCH (16:50)
[2020-12-19] MEDS: GASTROGRAFIN SOLUTION 30ML PO SCH ×4 (00:01→01:07)
[2020-12-19] MEDS: LORazepam 1 MG TAB PO PRN (01:25)
[2020-12-19] MEDS: HYDROmorphone 4MG TABLET PO PRN (01:26)
[2020-12-19] MEDS: BISACODYL 10 MG SUPP PR SCH (09:00)
[2020-12-19] MEDS: MORPHINE 30 MG SA TAB PO SCH (09:03)
[2020-12-19] MEDS: ONDANSETRON 4 MG TAB PO SCH (09:03)
[2020-12-19] MEDS ORDERED: ONDA-83 PO (11:18)
[2020-12-19] MEDS ORDERED: TRAN1DIS4 TOP (11:18)
[2020-12-19] MEDS ORDERED: MORP1SOL SL (11:18)
[2020-12-19] MEDS ORDERED: ATIV1TAB7 PO (11:18)
[2020-12-19] MEDS ORDERED: HYOS125TA PO (11:18)
[2020-12-19] MEDS ORDERED: MORP30TASA PO (11:18)
[2020-12-19] MEDS ORDERED: DILA4TAB13 PO (11:18)
[2020-12-19] MEDS ORDERED: BISA10SU PR (11:18)
[2020-12-19] MEDS ORDERED: MSIR30TA PO (11:18)
[2020-12-19] MEDS ORDERED: DEXA4TA PO (11:18)
[2020-12-19] MEDS ORDERED: GLYCADSU PR (11:18)
[2020-12-19] MEDS ORDERED: ATRO1OPD SL (11:18)
[2020-12-19] MEDS ORDERED: PROC5TAB57 PO (11:18)
--- NOTE | 2020-12-19 16:06 | DS.PDOC ---
Discharge Summary General Date of Admission Dec 15, 2020 at 23:53 Date of Discharge 12/19/20 Discharge Summary PROCEDURES PERFORMED DURING STAY: [None]. ADMITTING DIAGNOSES: Uncontrolled abdominal pain metastatic pancreatic cancer Partial SBO Nausea/vomiting Cachexia DISCHARGE DIAGNOSES: Uncontrolled abdominal pain metastatic pancreatic cancer Partial SBO Nausea/vomiting Cachexia COMPLICATIONS/CHIEF COMPLAINT: Pancreatic Cancer, Sbo. HISTORY OF PRESENT ILLNESS: 35-year-old male recently diagnosed with stage IV pancreatic cancer presents to the emergency department because of uncontrolled abdominal pain and decreased appetite. About 1 month ago patient found out he had diagnosis of metastatic pancreatic cancer and started chemotherapy at [facility]. He tells me he is not interested in continuing chemotherapy there at this time due to side effects and feeling like he has limited time and doesn't want to waste and getting chemotherapy. He is complaining of uncontrolled severe 10/10 abdominal pain that is exacerbated by movement and alleviated with rest. It does not radiate but rather affect his entire abdomen. This pain has been progressively getting worse over the past month. He tells me he hasn't had a bowel movement in 1 week but he does pass gas. He's had no appetite with very little fluid or solid intake. He tells me morphine does help with his pain. He's been nauseous but has not vomited other than one time when he first came in. Surgery was consulted from the emergency department Dr quigley who recommended NG tube placement only if he continues to vomit again. Patient will be admitted for pain control and suspected partial small bowel obstruction. HOSPITAL COURSE: During the hospital stay the following issue addressed After discussion with palliative care, oncologist patient decided to be on the comfort measures only. Comfort measure protocol initiated. Hospice team was on board, recommendation given. DISCHARGE MEDICATIONS: Please see below. ALLERGIES: Please see below. PHYSICAL EXAMINATION ON DISCHARGE: VITAL SIGNS: Please see below. GENERAL APPEARANCE: In mild distress HEENT: no scleral icterus, no JVD, EOMI CARDIOVASCULAR: S1S2 LUNGS: Diminished lung sounds bilaterally ABDOMEN: soft & diffusely tender w palpation MUSCULOSKELETAL: no cyanosis, no swelling INTEGUMENT: no generalized pallor NEUROLOGICAL: cranial nerve function from 2-12 intact, follows commands, speech not dysarthric LABORATORY DATA: Please see below. PROGNOSIS: Grave ACTIVITY: [As tolerated]. DIET: Regular DISCHARGE PLAN: Follow-up with hospice care DISPOSITION: 01 Home, Self-Care. DISCHARGE CONDITION: [Stable]. TIME SPENT ON DISCHARGE: 40 minutes. Vital Signs/I&Os Vital Signs Date Time Temp Pulse Resp B/P (MAP) Pulse Ox O2 Delivery O2 Flow Rate FiO2 12/18/20 12:59 13 12/16/20 21:51 Room Air 12/16/20 14:00 96.8 89 141/90 (107) 95 12/16/20 01:33 2.0 I&O- Last 24 Hours up to 6 AM 12/19/20 06:00 Intake Total 946 ml Output Total 650 ml Balance 296 ml Discharge Medications Scheduled Bisacodyl (Bisacodyl) 10 Mg Supp.rect, 10 MG AK DAILY Dexamethasone (Dexamethasone) 4 Mg Tablet, 4 MG PO DAILY Morphine Sulfate (Morphine Sulfate) 15 Mg Tablet, 15 MG PO TID, (Reported) Ondansetron HCl (Ondansetron HCl) 4 Mg Tablet, 8 MG PO Q6H Scheduled PRN Atropine Sulfate (Atropine Sulfate) 1% 2ML Drops, 1 DROP SL Q2HP PRN for TERMINAL SECRETIONS Glycerin (Adult Glycerin) 1 Each Supp.rect, 1 EA AK DAILYPRN PRN for CONSTIPATION Hydromorphone HCl (Dilaudid) 4 Mg Tablet, 4 MG PO Q2HP PRN for moderate (PS 5-8) Hyoscyamine Sulfate (Hyoscyamine Sulfate) 0.125 Mg Tab.subl, 0.125 MG PO Q4HP PRN for TERMINAL SECRETIONS Lorazepam (Ativan) 1 Mg Tablet, 1 MG PO Q2HP PRN for ANXIETY or nausea/vom Morphine Sulfate (Morphine Sulfate ER) 30 Mg Tablet.er, 60 MG PO BID PRN for severe pain Morphine Sulfate (Morphine Sulfate) 30 Mg Tablet, 15 MG PO Q3HP PRN for SEVERE PAIN (PS 8-10) Morphine Sulfate (Morphine Sulfate Concentrate) 100 Mg/5 Ml Solution, 2 MG SL Q2HP PRN for SEVERE PAIN (PS 8-10) Ondansetron HCl (Ondansetron HCl) 8 Mg Tablet, 8 MG PO Q8H PRN for NAUSEA OR VOMITING, (Reported) Prochlorperazine (Prochlorperazine Maleate) 5 Mg Tablet, 10 MG PO Q6HP PRN for NAUSEA OR VOMITING Scopolamine (Transderm-Scop) 1 Each Patch.td.3, 1 MG TOP Q3DP PRN for EXCESSIVE SECRETIONS Allergies Coded Allergies: Sulfa (Sulfonamide Antibiotics) (Verified Allergy, Unknown, unknown, 02/02/20) MARLA BEAN DO Dec 19, 2020 16:06
== END 2020-12-19 12:06 | disposition home or self-care (01) | DRG 861 ==
LOC: M ED 18:13 → M ED INP 23:53 → ENRESERV 12-16 00:55 → M MSPAV 12-16 02:05
PROVIDERS: ADMIT Family Medicine; ATTEND Internal Medicine
DX: G89.3 Neoplasm related pain (acute) (chronic) (principal); K56.600 Partial intestinal obstruction, unspecified as to cause; R64 Cachexia; C78.6 Secondary malignant neoplasm of retroperitoneum and peritoneum; C25.9 Malignant neoplasm of pancreas, unspecified; Z51.5 Encounter for palliative care; Z79.899 Other long term (current) drug therapy; Z88.2 Allergy status to sulfonamides